=== PATIENT | male | born 1935 | race Caucasian/White ===

== ENCOUNTER 2016-07-04 08:59 | Inpatient (IN) | payer MEDICARE, OTHER ==
[~2016-07-04] VITALS: Ht 180.3 cm; Wt 68.4 kg
[~2016-07-04 08:59] MED LIST: NAPR275T83 PO
[2016-07-04 09:11] VITALS: Ht 180.3 cm; Wt 68.4 kg
[2016-07-04] MEDS ORDERED: GENTAMICIN 160 MG in SOD CHLORIDE 0.9% 100 ML IVPB ONE (09:30)
[2016-07-04] MEDS ORDERED: CEFTRIAXONE 1 GM/50 ML (PMX) 50 ML IVPB ONE (09:30)
--- NOTE | 2016-07-04 09:39 | RADRPT ---
PROCEDURE: XR Chest. CLINICAL INDICATION: 81-year-old male with suspected sepsis and respiratory failure. TECHNIQUE: Single frontal view of the chest was obtained COMPARISON: Chest x-ray 05/28/2015 03:35 p.m. FINDINGS: The soft tissues are normal. A spinal fusion procedure was performed in the mid and lower thoracic spine with pedicular screws attached posterior stabilization rods. There are vascular calcification s aortic arch. There is a poor inspiration with compressive atelectasis in the bases of the lungs. A lower cervical fusion procedure was performed over the interval. The heart is normal in size. N o pleural effusion is present. No acute bony fracture is noted. IMPRESSION: 1. Suboptimal inspiration with compressive atelectasis in the bases of the lungs. There is no evide nce of active cardiopulmonary disease. 2. The tracheostomy tube is well-positioned at T3. 3. Prior lower cervical fusion. 4. Prior posterior spinal fusion in the mid and lower thoracic spine. 5. Resolution of a left pleural effusion when compared to 05/28/2015. RPTAT:AAJJ Physician Zheng Date Time Electronically viewed and signed by Physician Zheng on 07/04/2016 09:39 BOOKER/
[2016-07-04] MEDS ORDERED: ACET325S GTB (09:40)
[2016-07-04] MEDS ORDERED: ALLO300T2 GTB (09:41)
[2016-07-04] MEDS ORDERED: AMLO5TAB4 GTB (09:41)
[2016-07-04] MEDS ORDERED: POLY15DR25 OP (09:42)
[2016-07-04] MEDS ORDERED: ASCO500S2 GTB (09:43)
[2016-07-04] MEDS ORDERED: LORA-441 GTB (09:44)
[2016-07-04] MEDS ORDERED: BENA40TA41 GTB (09:47)
[2016-07-04] MEDS ORDERED: SIN25100 GTB (09:49)
[2016-07-04] MEDS ORDERED: CLON-379 GTB (09:50)
[2016-07-04] MEDS ORDERED: DOCU-159 GTB (09:51)
[2016-07-04] MEDS ORDERED: IPRA3AMP INHALATION ×2 (09:53)
[2016-07-04] MEDS ORDERED: GABA300C16 GTB (09:54)
[2016-07-04] MEDS ORDERED: APR50 GTB (09:59)
[2016-07-04] MEDS ORDERED: LEVO500T72 PO (10:02)
[2016-07-04] MEDS ORDERED: MAGN400T27 GTB (10:04)
[2016-07-04] MEDS ORDERED: METO-407 GTB (10:06)
[2016-07-04] MEDS ORDERED: HYDR-906 GTB ×2 (10:10→10:13)
[2016-07-04] MEDS ORDERED: POLY17PO6 GTB (10:10)
[2016-07-04 10:11] LABS: ADD SCAN DIFF NO
[2016-07-04] MEDS ORDERED: LANS30CA GTB (10:13)
[2016-07-04] MEDS ORDERED: PROT946L GTB (10:14)
[2016-07-04] MEDS ORDERED: FINA5TAB4 GTB (10:15)
[2016-07-04 10:17] LABS: ADD UMIC YES; URINE BILIRUBIN (Dip) NEGATIVE (NEGATIVE); URINE BLOOD (Dip) 3+ (NEGATIVE); URINE COLOR LT. YELLOW (YELLOW); URINE GLUCOSE (Dip) NEGATIVE (NEGATIVE); URINE KETONES (Dip) NEGATIVE (NEGATIVE); URINE LEUKOCYTE ESTERASE (Dip) 3+ (NEGATIVE); URINE NITRITE (Dip) NEGATIVE (NEGATIVE); URINE TOTAL PROTEIN (Dip) 1+ (NEGATIVE); URINE UROBILINOGEN (Dip) 0.2 E.U./dL (0.1-1.0)
[2016-07-04] MEDS ORDERED: ONDA4TAB8 GTB (10:17)
[2016-07-04] MEDS ORDERED: MULTI GTB (10:17)
[2016-07-04 10:18] LABS: ABNORMAL IP MESSAGE 1; BASOPHILS % 0.3 % (0.0-2.0); EOSINOPHILS # 0.2 10^3/ul (0.0-0.5); EOSINOPHILS % 1.6 % (0.0-7.0); HEMATOCRIT 25.6 % (42.0-52.0); HEMOGLOBIN 8.2 g/dl (14.0-18.0); LYMPHOCYTES # 2.5 10^3/ul (0.8-2.9); LYMPHOCYTES % 20.6 % (15.0-51.0); MEAN CORPUSCULAR HEMOGLOBIN 30.7 pg (29.0-33.0); MEAN CORPUSCULAR VOLUME 95.9 fl (82.0-101.0); MEAN PLATELET VOLUME 9.2 fl (7.4-10.4); MONOCYTES % 16.9 % (0.0-11.0); NEUTROPHIL # 7.2 10^3/ul (1.6-7.5); NEUTROPHILS % 60.2 % (39.0-77.0); PLATELET COUNT 356 10^3/UL (140-415); RED BLOOD COUNT 2.67 10^6/ul (4.70-6.10); RED CELL DISTRIBUTION WIDTH 15.9 % (11.5-14.5)
[2016-07-04] MEDS ORDERED: LEVA1.25 INHALATION (10:19)
[2016-07-04] MEDS ORDERED: UDFER GTB (10:21)
[2016-07-04] MEDS ORDERED: SODIUM CHLORIDE 0.9% 1L BAG IV* STA (10:23)
[2016-07-04 10:27] LABS: ALBUMIN 2.9 g/dl (3.3-4.9)
[2016-07-04 10:28] LABS: INR 1.1; PROTIME 14.2 Sec (12.2-14.2); PT RATIO 1.1
[2016-07-04 10:29] LABS: PARTIAL THROMBOPLASTIN TIME 35.8 Sec (25.0-35.0)
[2016-07-04 10:30] LABS: ALBUMIN/GLOBULIN RATIO 0.76; BILIRUBIN,INDIRECT 0.4 mg/dl (0-1.1); BILIRUBIN,TOTAL 0.4 mg/dl (0.2-1.3); CREATININE 0.88 mg/dl (0.61-1.24); TOTAL PROTEIN 6.7 g/dl (6.1-8.1)
[2016-07-04 10:31] LABS: CALCIUM 8.7 mg/dl (8.4-10.2)
[2016-07-04 10:42] LABS: TROPONIN-I 0.014 ng/ml (0.00-0.12)
--- NOTE | 2016-07-04 10:52 | ERA ---
ER Documentation Chief Complaint Date/Time DATE: 07/04/16 TIME: 903 Chief Complaint BROUGHT IN VIA EMS FROM [facility] DUE TO LOW H&H AND GT OUT HPI 81-year-old male referred to the emergency department from his care facility for evaluation of generalized weakness. Routine lab tests from the patient's care facility indicated an elevated white blood cell count, low hemoglobin, urinary tract infection and the patient was referred here to the emergency department. Patient is nonverbal and not able to provide any history at this time. I have reviewed the seam stayer pre-hospital care. Pre-hospital vital signs were reviewed. Pre-hospital diagnostic tests were reviewed. ROS All systems reviewed and are negative except as per history of present illness. Medications Home Meds Reported Medications Ferrous Sulfate (Ferrous Sulfate) 300 Mg/5 Ml Liquid, 330 MG GTB BID 07/04/16 Levalbuterol Hcl* (Levalbuterol Hcl*) 1.25 Mg/0.5 Ml Vial.neb, 1.25 MG INHALATION Q6 Y for bronchospasm, VIAL 07/04/16 Multivitamins* (Theragran*) 1 Tab Tab, 1 TAB GTB DAILY, TAB 07/04/16 Ondansetron Hcl* (Zofran*) 4 Mg Tablet, 4 MG GTB Q6H Y for NAUSEA AND OR VOMITING, TAB 07/04/16 Finasteride* (Finasteride*) 5 Mg Tablet, 5 MG GTB DAILY, TAB 07/04/16 Protein Supplement (Promod) 946 Ml Liquid, 30 ML GTB DAILY 07/04/16 Lansoprazole* (Lansoprazole*) 30 Mg Capsule.dr, 30 MG GTB DAILY, CAP 07/04/16 Hydrocodone/Acetaminophen ([place] 5-325 Tablet) 1 Each Tablet, 1 EACH GTB prn, TAB everyday dhift for pain management prior to wound care 07/04/16 Hydrocodone/Acetaminophen ([place] 5-325 Tablet) 1 Each Tablet, 1 EACH GTB Q6 Y for PAIN, TAB 07/04/16 Polyethylene Glycol* (Miralax*) 17 Gm Powd.pack, 17 GM GTB DAILY Y for CONSTIPATION, #30 PACKET 07/04/16 Metoprolol Tartrate* (Lopressor*) 100 Mg Tablet, 100 MG GTB BID, #60 TAB hold if less than 110 or HR 60 07/04/16 Magnesium Oxide* (Mag-Oxide*) 400 Mg Tablet, 400 MG GTB QHS, TAB 07/04/16 Levofloxacin* (Levaquin*) 500 Mg Tablet, 500 MG PO DAILY, TAB started 06-30-16 stop 07-08-16 07/04/16 Hydralazine Hcl* (Hydralazine Hcl*) 50 Mg Tab, 50 MG GTB Q8 Y for ELEVATED BLOOD PRESSURE, #90 TAB HOLD FOR SBP LESS THAN 115mmHg 07/04/16 Gabapentin* (Gabapentin*) 300 Mg Capsule, 300 MG GTB BID, #60 CAP 07/04/16 Ipratropium-Albuterol (Ipratropium-Albuterol) 0.5-3 Mg/3 Ml Ampul.neb, 3 ML INHALATION Q2H Y for SHORTNESS OF BREATH, #30 VIAL 07/04/16 Ipratropium-Albuterol (Ipratropium-Albuterol) 0.5-3 Mg/3 Ml Ampul.neb, 3 ML INHALATION Q6 Y for BRONCHOSPASM, #30 VIAL 07/04/16 Docusate Sodium* (Docusate Sodium*) 100 Mg Capsule, 100 MG GTB BID, #60 CAP 07/04/16 Clonidine Hcl* (Clonidine Hcl*) 0.1 Mg Tab, 0.1 MG GTB Q6 Y for ELEVATED BLOOD PRESSURE, TAB 07/04/16 Carbidopa-Levodopa* (Sinemet*) 25-100 Mg Tab, 0.5 TAB GTB BID, TAB 07/04/16 Benazepril Hcl* (Benazepril Hcl*) 40 Mg Tablet, 40 MG GTB DAILY, #30 TAB HOLD IF LESS THAN 110 OR HR LESS THAN 60 07/04/16 Lorazepam* (Ativan*) 0.5 Mg Tablet, 0.5 MG GTB Q6 Y for ANXIETY, #30 TAB 07/04/16 Ascorbic Acid* (Ascorbic Acid*) 500 Mg/5 Ml Syrup, 500 MG GTB DAILY, #150 ML 07/04/16 Polyvinyl Alcohol (Tears Again) 15 Ml Drops, 1 DRP OP DAILY Y for DRY EYES, BOTTLE 07/04/16 Amlodipine Besylate* (Norvasc*) 5 Mg Tablet, 5 MG GTB BID, TAB 07/04/16 Allopurinol* (Allopurinol*) 300 Mg Tablet, 300 MG GTB DAILY, TAB 07/04/16 Acetaminophen* (Acetaminophen* Susp) 325 Mg/10.15 Ml Solution, 650 MG GTB Q6 Y for PAIN, ML 07/04/16 Discontinued Scripts Naproxen Sodium* (Naproxen*) 275 Mg Tablet, 500 MG PO BID for PAIN AND/OR INFLAMMATION, #30 TAB Prov:LUIS FINK MD 05/28/15 Allergies Allergies: Coded Allergies: No Known Allergy (Unverified , 07/04/16) PMhx/Soc History of Surgery: No Anesthesia Reaction: No Hx Neurological Disorder: No Hx Respiratory Disorders: No Hx Cardiac Disorders: Yes (HTN) Hx Psychiatric Problems: No Hx Miscellaneous Medical Probl: No Hx Alcohol Use: No Hx Substance Use: No Hx Tobacco Use: No Smoking Status: Never smoker FmHx Noncontributory for chief complaint Physical Exam Vitals Vital Signs Date Time Temp Pulse Resp B/P Pulse Ox O2 Delivery O2 Flow Rate FiO2 07/04/16 09:34 95 30 100 07/04/16 09:34 95 100 30 07/04/16 09:11 98.5 84 18 138/68 98 Physical Exam General: frail, bed bound, ill appearing HEENT: Mucous membranes dry, sclera nonicteric Neck: Tracheostomy noted. Ostomy patent. No inflammatory changes noted. No JVD. Cardiovascular: Regular rate and rhythm, no murmurs rubs or gallops. Lungs: Transmission of upper airway sounds. Abdomen: Soft with G-tube appreciated. Nontender to palpation. Bowel sounds noted. : Diaper in place and incontinent. Extremities: Atrophic but atraumatic with no edema, cyanosis or clubbing. Neurologic: Baseline organic brain syndrome noted. Gag reflex week. Motor strength diminished in all 4 extremities but otherwise nonfocal. Skin: Skin breakdown noted per nursing note. Result Diagram: 07/04/16 0940 07/04/16 0940 Results 24 hrs Laboratory Tests Test 07/04/16 09:40 07/04/16 09:41 07/04/16 09:42 Activated Partial Thromboplast Time 35.8Sec Alanine Aminotransferase (ALT/SGPT) 25IU/L Albumin 2.9g/dl Albumin/Globulin Ratio 0.76 Alkaline Phosphatase 152IU/L Anion Gap 14 Aspartate Amino Transf (AST/SGOT) 32IU/L Basophils # 0.010^3/ul Basophils % 0.3% Blood Urea Nitrogen 47mg/dl Calcium Level 8.7mg/dl Carbon Dioxide Level 38mmol/L Chloride Level 96mmol/L Creatinine 0.88mg/dl Direct Bilirubin 0.00mg/dl Eosinophils # 0.210^3/ul Eosinophils % 1.6% Globulin 3.80g/dl Glucose Level 97mg/dl Hematocrit 25.6% Hemoglobin 8.2g/dl INR International Normalized Ratio 1.10 Indirect Bilirubin 0.4mg/dl Lymphocytes # 2.510^3/ul Lymphocytes % 20.6% Mean Corpuscular Hemoglobin 30.7pg Mean Corpuscular Hemoglobin Concent 32.0g/dl Mean Corpuscular Volume 95.9fl Mean Platelet Volume 9.2fl Monocytes # 2.010^3/ul Monocytes % 16.9% Neutrophils # 7.210^3/ul Neutrophils % 60.2% Nucleated Red Blood Cells # 0.010^3/ul Nucleated Red Blood Cells % 0.0/100WBC Platelet Count 90255^3/UL Potassium Level 4.0mmol/L Prothrombin Time 14.2Sec Prothrombin Time Ratio 1.1 Red Blood Count 2.6710^6/ul Red Cell Distribution Width 15.9% Sodium Level 144mmol/L Total Bilirubin 0.4mg/dl Total Protein 6.7g/dl Troponin I Pending White Blood Count 12.010^3/ul Lactic Acid Level 0.9mmol/L Urine Bilirubin NEGATIVE Urine Clarity CLEAR Urine Color LT. YELLOW Urine Glucose NEGATIVE% Urine Hemoglobin 3+ Urine Ketones NEGATIVE Urine Leukocyte Esterase 3+ Urine Microscopic RBC 10-25/HPF Urine Microscopic WBC 5-10/HPF Urine Nitrite NEGATIVE Urine Specific [place] 1.010 Urine Total Protein 1+ Urine Urobilinogen 0.2 E.U./dL Urine Yeast MODERATE Urine pH 6.0 Current Medications Medications (Trade) Dose Ordered Sig/Tonny Route PRN Reason Start Time Stop Time Status Last Admin Dose Admin Ceftriaxone Sodium 50 ml @ 100 mls/hr ONCE ONCE IVPB 07/04/16 09:30 07/04/16 09:59 DC 07/04/16 09:56 Gentamicin Sulfate/Sodium Chloride (Gentamicin/NS) 104 ml @ 100 mls/hr ONCE ONCE IVPB 07/04/16 09:30 07/04/16 10:32 DC Sodium Chloride (NS) 2,540 ml BOLUS OVER 2 HOURS STAT IV* 07/04/16 10:23 07/04/16 10:24 DC 07/04/16 10:26 Procedures/MDM Patient was taken to a room, seen and evaluated. Comfort measures were initiated. Diagnostic tests were ordered and reviewed. 3 LEAD RHYTHM STRIP: Normal sinus rhythm without ectopy 12 lead EKG interpreted by myself: Rate/rhythm: Normal sinus rhythm Logan/intervals: Normal Ischemia: Nonspecific ST and T-wave changes with no ST elevation Impression: Nonspecific EKG RADIOLOGY: reviewed with the radiologist CONSULTATION: Patient's primary care doctor was notified for admission REEVALUATION: Patient has remained hemodynamically stable MEDICAL DECISION MAKIN-year-old male with multiple comorbid conditions presents to the emergency department for abnormal lab tests indicative of a urinary tract infection that is catheter associated complicated by a chronic respiratory failure that is tracheostomy and ventilator dependent as well as a low hemoglobin. At this time, patient is hemodynamically stable with no clinical evidence of sepsis based on his normal lactate and his normal vital signs. Patient has been started on antibiotics and fluids will be admitted to the hospital for ongoing care including consideration of transfusion, IV antibiotics for the UTI. Departure Diagnosis: Primary Impression: Urinary tract infection Additional Impression: Anemia Condition: ANU Malave Jul 04, 2016 10:52
[2016-07-04] MEDS ORDERED: SOD CHLORIDE 0.45% 1,000 ML IV SCH (22:30)
[2016-07-04] MEDS ORDERED: POLYETHYLENE GLYCOL 17 GM PACKET GTB PRN (22:30)
[2016-07-04] MEDS ORDERED: ALBUTEROL/IPRATROPIUM (NEB) 3 ML AMP INH PRN (22:30)
[2016-07-04] MEDS ORDERED: ONDANSETRON 4 MG TAB GTB PRN (22:30)
[2016-07-04] MEDS ORDERED: ACETAMINOPHEN 650MG/20.3ML CUP GTB PRN (22:30)
[2016-07-04] MEDS ORDERED: HYDROCODONE/APAP (5/325) TAB GTB PRN (22:30)
[2016-07-04] MEDS: CEFTRIAXONE 1 GM/50 ML (PMX) 50 ML IVPB SCH (23:26)
[2016-07-05] MEDS: LORAZEPAM 0.5 MG TAB GTB PRN (00:30)
[2016-07-05] MEDS: ALBUTEROL/IPRATROPIUM (NEB) 3 ML AMP NEB SCH ×4 (02:00→20:33)
[2016-07-05] MEDS: LANSOPRAZOLE 30 MG CAP GTB SCH ×2 (04:58→11:22)
--- NOTE | 2016-07-05 05:40 | HP ---
DATE OF ADMISSION: 07/04/2016 CHIEF COMPLAINT: History obtained from medical record and some questions were answered from the patient, although review of systems was rather limited as the patient has tracheostomy. 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 Santos Sorensen at [facility] and underwent a cervical laminectomy. The patient's postoperative course was complicated by acute respiratory failure. The patient could not be weaned off and therefore underwent tracheostomy and G-tube placement and was subsequently transferred to [facility]. The patient was successfully weaned off of vent; however, remained on trach collar. The patient also had developed postoperative fluid collection in the anterior part of the neck leading to a cystic mass. The patient was seen by Dr. Cho (ENT), who recommended conservative treatment. The patient was subsequently sent to [facility] subacute unit. The patient was noted to have progressive worsening anemia and hemoglobin was around 7. No reported fever or chills. The patient also was recently noted to have leukocytosis for which patient was empirically started on Levaquin and workup was ordered at [facility]; however, the patient was sent to [facility] ER for evaluation where his hemoglobin was noted to be 8.2. The patient's hemoglobin back in 05/2015 was 14.1. The patient also was noted to have BUN of 47, significantly up from BUN of 25 back in 05/2015. The patient's UA was positive for UTI as evident by positive leukocyte esterase, positive WBC. The patient's white count, however, was noted to be 12. He remains responsive, and breathing comfortably on trach collar. No reported vomiting, no reported bleeding from any site. No reported abdominal distention. No reported any acute skin rash. The patient was seen in the ER and was noted to have a white count of 12,000, hemoglobin 8.2, platelets 356. Chest x-ray done in the ER revealed atelectasis. The patient is being admitted for further evaluation and management. The patient is lethargic, but able to follow simple commands and has generalized weakness in all extremities.. The patient is being admitted for further evaluation and management. REVIEW OF SYSTEMS: Rather limited as the patient had tracheostomy. PAST MEDICAL HISTORY: As stated above. In addition, the patient also has history of parkinsonism and hypertension, and possible radiculopathy pain. The patient is being admitted for further evaluation and management. In addition, the patient also has history of gout. SOCIAL HISTORY: No smoking, no alcohol. ALLERGIES: NONE. FAMILY HISTORY: Noncontributory. MEDICATIONS: List from skilled subacute unit was reviewed. PHYSICAL EXAMINATION: GENERAL: Revealed the patient to be conscious, awake, alert. VITAL SIGNS: Temperature 98.5, pulse 84, respirations 18, blood pressure 138/68 , O2 saturation 98% on FIO2 of 30%. HEENT: Conjunctivae and lids normal. Extraocular movements intact. Nose and ears normal. Oropharynx clear. NECK: Tracheostomy in place. There is a soft cystic mass in the anterior neck , probably postoperative fluid collection from recent surgery. CHEST: Fairly clear. No use of accessory muscles. CARDIOVASCULAR: S1, S2 normal. No murmur, gallop, or rub. ABDOMEN: Soft, nondistended, nontender. G-tube in place. EXTREMITIES: No leg edema. Pedal pulses palpable. SKIN: Without acute rash. NEUROLOGIC: The patient is awake, alert, follows simple commands, and has generalized weakness in all extremities. LABORATORY: WBC 12, hemoglobin 8.2, platelet 356. Chemistry: Sodium 140, potassium 4, BUN 47, creatinine 0.8, glucose 97. Liver enzymes normal with AST of 32, ALT 25. Lactic acid normal. IMPRESSION: 1. Urinary tract infection. 2. Anemia. 3. Hypertension. 4. Cervical myelopathy status post cervical spine and upper thoracic spine surgery. 5. Parkinsonism. PLAN: The patient admitted on telemetry floor. The patient will be started on IV Rocephin and will also give IV fluid due to acute kidney injury. The patient was started on IV Rocephin. The patient also received a dose of gentamicin in the ER. Meanwhile, the patient will also be given breathing treatment. The patient will also be given Sinemet, iron, Proscar, gabapentin, Ativan, magnesium, multivitamin, Zofran, MiraLax powder. The patient will obtain iron panel, vitamin B12, folic acid level, and will be continued on breathing treatment. Meanwhile to complete the workup for anemia, we will also do stool OB and reticulocyte count. Further recommendations will depend on the patient's course. We will also do stool OB x3; if it turns out to be positive, he will require a GI workup. Will hold off on pharmacological DVT prophylaxis due to anemia. The patient remains clinically stable. Dictated By: CYNTHIA LEMUS/CHITRA Conf#: [id number] DID#: [id number] MTDD
[2016-07-05 08:12] LABS: ADD SCAN DIFF NO
[2016-07-05 08:39] LABS: BASOPHILS % 0.2 % (0.0-2.0); EOSINOPHILS # 0.1 10^3/ul (0.0-0.5); EOSINOPHILS % 0.7 % (0.0-7.0); HEMATOCRIT 24.8 % (42.0-52.0); LYMPHOCYTES # 1.6 10^3/ul (0.8-2.9); LYMPHOCYTES % 15.5 % (15.0-51.0); MEAN CORPUSCULAR HEMOGLOBIN 30.5 pg (29.0-33.0); MEAN CORPUSCULAR HGB CONC 32.3 g/dl (32.0-37.0); MEAN CORPUSCULAR VOLUME 94.7 fl (82.0-101.0); MEAN PLATELET VOLUME 9.4 fl (7.4-10.4); MONOCYTE # 1.2 10^3/ul (0.3-0.9); NEUTROPHIL # 7.6 10^3/ul (1.6-7.5); NEUTROPHILS % 72.1 % (39.0-77.0); PLATELET COUNT 336 10^3/UL (140-415); RED BLOOD COUNT 2.62 10^6/ul (4.70-6.10); RED CELL DISTRIBUTION WIDTH 15.6 % (11.5-14.5); RETICULOCYTE COUNT % 1.5 % (0.5-1.5); WHITE BLOOD COUNT 10.5 10^3/ul (4.8-10.8)
[2016-07-05 08:44] LABS: CHLORIDE 101 mmol/L (97-110); POTASSIUM 3.1 mmol/L (3.5-5.1); SODIUM 144 mmol/L (135-144)
[2016-07-05 08:47] LABS: ANION GAP 17 (8-16); BLOOD UREA NITROGEN 36 mg/dl (7-20); CARBON DIOXIDE 29 mmol/L (21-31); CREATININE 0.64 mg/dl (0.61-1.24)
[2016-07-05 08:48] LABS: CALCIUM 8.3 mg/dl (8.4-10.2); GLUCOSE 72 mg/dl (70-220)
[2016-07-05] MEDS ORDERED: ASCORBIC ACID 100 MG/ML 120ML BTL GTB SCH (09:00)
[2016-07-05] MEDS: CARBIDOPA/LEVODOPA (25/100) TAB GTB SCH ×3 (09:00→21:02)
[2016-07-05] MEDS ORDERED: FERROUS SULFATE 60 MG/ML 5ML CUP GTB SCH (09:00)
[2016-07-05] MEDS ORDERED: NON-FORMULARY/PATIENT OWN MED (Protein Supplement (Promod) 30 ML) GTB SCH (09:00)
[2016-07-05 09:19] LABS: IRON 24 ug/dl (35-150)
[2016-07-05 09:28] LABS: TOTAL IRON BINDING CAPACITY 223 ug/dl (241-421)
[2016-07-05 09:46] LABS: FOLATE > 20.0 ng/ml (2.8-20.0)
[2016-07-05] MEDS: ARTIFICIAL TEARS 15 ML OPH BOTH EYES SCH (11:17)
[2016-07-05] MEDS: BENAZEPRIL 40 MG TAB GTB SCH (11:19)
[2016-07-05] MEDS: GABAPENTIN 300 MG CAP GTB SCH ×2 (11:19→21:21)
[2016-07-05] MEDS: METOPROLOL 100 MG TAB GTB SCH ×2 (11:20→21:02)
[2016-07-05] MEDS: AMLODIPINE 5 MG TAB GTB SCH ×2 (11:20→21:03)
[2016-07-05] MEDS: ALLOPURINOL 300 MG TAB GTB SCH (11:21)
[2016-07-05] MEDS: MULTIVITAMINS THERAPEUTIC TAB GTB SCH (11:21)
[2016-07-05] MEDS: FINASTERIDE 5 MG TAB GTB SCH (11:21)
[2016-07-05] MEDS ORDERED: POTASSIUM CHLORIDE 20 MEQ POWDER FOR ORAL SOLN GTB ONE (11:30)
[2016-07-05] MEDS: D5W-0.45 NACL + KCL 20 MEQ 1,000 ML IV SCH (11:30)
--- NOTE | 2016-07-05 12:25 | PN ---
DATE: 07/04/2016 SUBJECTIVE: Follow up on an 81-year-old gentleman who was admitted with urinary tract infection. T he patient with a tracheostomy, vent-dependent with dysphagia with G-tube. The patient with left-si ded weakness and quadriparesis, status post cervical and thoracic spinal stenosis. The patient curr ently is awake, alert, follows immediate commands. Has copious secretions from the mouth and small amount of whitish secretions from the tracheostomy. No fever, nausea, vomiting reported per nursing staff. OBJECTIVE: VITAL SIGNS: Temperature is 99.0, pulse is 90, blood pressure 153/69, pulse is 90, respiratory rate 16, oxygen saturation is 100% on 40% FIO2. GENERAL: Well-developed, well-nourished gentleman currently on ventilator support via tracheostomy, awake, alert. HEENT: Head is atraumatic, normocephalic. Pupils equal, round, reactive to light and accommodation . Oral mucosa is pink and moist. NECK: Supple. The patient has right lateral anterior nontender, nonerythematous cystic mass. Trac heostomy at the base of the neck with a small amount of whitish secretions. No bleeding. LUNGS: Scattered rhonchi bilaterally, slightly diminished at the bases. There are no wheezes, rale s noted. HEART: Normal S1, S2. No murmurs, gallops, clicks, rubs noted. ABDOMEN: Protuberant, soft, nondistended, nontender. Bowel sounds present. The patient has a G-tu be with intact stoma. EXTREMITIES: There is no edema, clubbing, cyanosis. Pulses equal bilaterally 2+. SKIN: There is no obvious rash, petechiae noted. NEUROLOGIC: The patient is awake, alert, follows simple immediate commands. The patient with left- sided weakness. LABORATORY DATA: Today CBC: White blood cells 10.5, hemoglobin 8.0, hematocrit 24.8, platelets 336 . Chemistry: Sodium is 143, potassium 3.1, chloride 101, carbon dioxide 29, anion gap 17, BUN is 3 6, creatinine 0.64, glucose 72, calcium 8.3. ASSESSMENT AND PLAN: 1. Urinary tract infection per UA. Continue Rocephin. Follow up on urine cultures. 2. Systemic inflammatory response syndrome secondary to urinary tract infection. 3. Anemia of possible gastrointestinal bleed. Stool for occult blood is positive. Dr. Amezquita will be following the patient in gastroenterology consultation. Continue to monitor hemoglobin and diana tocrit. 4 Chronic respiratory failure. Continue patient on ventilatory support. Continue pulmonary toilet and bronchodilators. Dr. Rivera will be following the patient from pulmonology standpoint. 5. Dysphagia with G-tube. 6. Hypertension. Continue patient on Lotensin, Norvasc and metoprolol. 7. Parkinson's disease. Continue Sinemet. 8. Cervical myelopathy, status post cervical spine and upper thoracic spine surgery by Dr. Sorensen. 9. Neck cystic mass, status post conservative treatment. 10. 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 Continue to assist pat ient with activities of daily living 11. Hypokalemia. We will replace potassium. Monitor electrolytes. PLAN: We will continue to monitor hemoglobin and hematocrit. Transfuse p.r.n. We will continue se quential compression devices for deep venous thrombosis prophylaxis and Prevacid for peptic ulcer di sease prophylaxis. Further recommendations based on clinical course. Plan of care discussed with Dr. Gonzalez. Dictated By: MARCO DOE WOODWORKING MACHINE SETTER for CYNTHIA GONZALEZ MD SR/NTS Conf#: [id number] DID#: [id number]
[2016-07-05] MEDS: ASCORBIC ACID 500 MG TAB GTB SCH (21:00)
[2016-07-05] MEDS: MAGNESIUM OXIDE 400 MG TAB GTB SCH (21:21)
[2016-07-05] MEDS: CEFTRIAXONE 1 GM/50 ML (PMX) 50 ML IVPB SCH (21:44)
--- NOTE | 2016-07-05 22:09 | CONS ---
DATE OF ADMISSION: 07/04/2016 DATE OF CONSULTATION: TYPE OF CONSULTATION: Gastroenterology. Dear Dr. Gonzalez: Thank you for asking me to see Mr. Box in GI consultation. HISTORY OF PRESENT ILLNESS: The patient, as you know, is an 81-year-old male who is admitt ed to the hospital with possible urinary tract infection from the group home. GI consultation is requested because of severe anemia, around hemoglobin 7, and latest hemoglobin is 8. He is known to have had a laminectomy, which is a cervical laminectomy, in [facility] for thoracic and ce rvical spinal stenosis. Subsequently, however, continued to stay in respiratory failure. He underw ent tracheostomy and PEG placement. Now, patient is unable to give me any history. Most of the his tory is obtained from the nursing staff and the patient's chart. No history of vomiting blood or passing blood from the rectum. He does have a PEG tube in place. REVIEW OF SYSTEM: Positive for respiratory failure, parkinsonism, hypertension, radiculopathy. MEDICATIONS PRIOR TO THIS ADMISSION, IN THE [facility]: Include: 1. Levaquin. 2. Ipratropium. 3. Levalbuterol. 4. Ferrous sulfate. 5. Amlodipine. 6. Benazepril. 7. Clonidine. 8. Hydralazine. 9. Metoprolol. 10. Sinemet. 11. Gabapentin. 12. Hydrocodone. 13. Lorazepam. 14. Lansoprazole. SOCIAL HISTORY: No history of alcoholism. PHYSICAL EXAMINATION: GENERAL: The patient is an 81-year-old male who at this time is unresponsive, although he opens his eyes. VITAL SIGNS: Temperature 98.8, pulse is 81, blood pressure 135/67. CARDIOVASCULAR: Normal heart sounds. RESPIRATORY: Normal breath sounds. ABDOMEN: Showed a G-tube in place. No distention, no palpable masses. LABORATORY WORKUP: The hematological workup shows hemoglobin is 8.0, WBC count is 10,500. Prothrombin time 14.2. Potassium is 3.1, BUN is 36, creatinine 0.6. Iron is 24. Bilirubin 0.4, AL T is 25. The imaging studies shows a chest x-ray indicating a tracheostomy in place, cervical fusion, spinal fusion, resolution of left pleural effusion. CLINICAL IMPRESSION: 1. From the gastrointestinal standpoint, the patient has severe anemia. Rule out gastrointestinal bleeding, particularly G-tube site ulcer can be a causative factor. Lower gastrointestinal causes o f anemia can also be considered. 2. History of respiratory failure. 3. Status post cervical and thoracic laminectomy. 4. Hypertension. PLAN: At this time, recommend upper endoscopy. Continue Protonix. I will be happy to follow this patient with you. Once again, doctor, thank you for this consultation. Dictated By: LAILA HOGAN/CHITRA Conf#: [id number] DID#: [id number] CC: LAILA VIDAL MD; CYNTHIA GONZALEZ MD;*EndCC*
[2016-07-06] VITALS (36 sets, daily range): BP systolic 119–159; BP diastolic 38–110; PULSE 59–91; RESP 12–25; TEMP 98.6
[2016-07-06] MEDS: ALBUTEROL/IPRATROPIUM (NEB) 3 ML AMP NEB SCH (02:54)
[2016-07-06] MEDS: D5W-0.45 NACL + KCL 20 MEQ 1,000 ML IV SCH ×2 (03:57→16:06)
[2016-07-06] MEDS ORDERED: IPRATROPIUM (HFA) 12.9 GM INHALER INH PRN (05:30)
[2016-07-06] MEDS ORDERED: ALBUTEROL HFA 8 GM INHALER INH PRN (05:30)
[2016-07-06 05:33] LABS: ADD SCAN DIFF NO
[2016-07-06 05:36] LABS: BASOPHILS % 0.2 % (0.0-2.0); EOSINOPHILS # 0.1 10^3/ul (0.0-0.5); EOSINOPHILS % 0.9 % (0.0-7.0); HEMATOCRIT 23.2 % (42.0-52.0); HEMOGLOBIN 7.4 g/dl (14.0-18.0); LYMPHOCYTES # 1.3 10^3/ul (0.8-2.9); LYMPHOCYTES % 14.9 % (15.0-51.0); MEAN CORPUSCULAR HEMOGLOBIN 30.7 pg (29.0-33.0); MEAN CORPUSCULAR HGB CONC 31.9 g/dl (32.0-37.0); MEAN CORPUSCULAR VOLUME 96.3 fl (82.0-101.0); MEAN PLATELET VOLUME 9.2 fl (7.4-10.4); MONOCYTE # 1.2 10^3/ul (0.3-0.9); MONOCYTES % 13.6 % (0.0-11.0); NEUTROPHILS % 70.1 % (39.0-77.0); PLATELET COUNT 346 10^3/UL (140-415); RED BLOOD COUNT 2.41 10^6/ul (4.70-6.10); RED CELL DISTRIBUTION WIDTH 15.6 % (11.5-14.5); WHITE BLOOD COUNT 8.6 10^3/ul (4.8-10.8)
[2016-07-06 06:16] LABS: POTASSIUM 3.1 mmol/L (3.5-5.1)
[2016-07-06 06:18] LABS: CREATININE 0.58 mg/dl (0.61-1.24)
[2016-07-06 06:19] LABS: CALCIUM 8.3 mg/dl (8.4-10.2)
--- NOTE | 2016-07-06 07:47 | CONS ---
Date/Time of Note Date/Time of Note DATE: 07/06/16 TIME: 07:42 Assessment/Plan Assessment/Plan Additional Assessment/Plan Chest x-ray was reviewed from 6 of the spine which is essentially clear. Ventilator settings; AC of 14, tidal volume 500, PEEP of 5, 30% FiO2. Assessment recommendations; 1. Patient with history of chronic respiratory failure which is ventilator dependent. 2. Dementia with paraplegia. 3. Anemia. 4. Multiple other comorbidities as outlined above which all appear fairly stable. 5. Possible UTI. Transfused 1 unit of packed RBC. Continue current supportive care. Consultation Date/Type/Reason Admit Date/Time Jul 04, 2016 at 10:48 Date of Consultation: Jul 06, 2016 Type of Consultation: Pulmonary/critical care Reason for Consultation Pulmonary consultation obtained for patient with chronic respiratory failure, admitted for anemia and UTI. Next History of present illness; patient is a 81-year-old male who was admitted on the seventh of this month transferred over from rehab center for anemia. Patient was diagnosed with UTI as well started on antibiotics. Patient remains ventilator dependent owing to anoxic brain injury as well as history of C-spine surgery. He is awake but unable to give any history whatsoever and this has been his underlying mental status. Past medical history; 1. History of chronic respiratory failure status post tracheostomy. 2. Status post G-tube placement. 3. History of thoracic and C-spine surgery. 4. Paraplegia. 5. Dementia. 6. Gout. 7. Anemia 8. COPD 9. Hypertension 10. Neuropathy 11. arthritis Medications; were reviewed. Allergies; are none. Social history; apparently there is a prior history of smoking. Family history; not available. Occupational history; not available. Review of systems; very limited review of systems could be obtained. Patient denies any shortness of breath by nodding no. General examination; elderly male, on ventilator via tracheostomy currently in no distress awake. Social History Smoking Status: Never smoker Exam/Review of Systems Vital Signs Vitals Vital Signs Date Time Temp Pulse Resp B/P Pulse Ox O2 Delivery O2 Flow Rate FiO2 07/06/16 06:00 74 18 128/55 100 Mechanical Ventilator 07/06/16 05:05 30 07/06/16 04:00 99.0 Intake and Output 07/05/16 07/05/16 07/06/16 15:00 23:00 07:00 Intake Total 280 ml Output Total 100 ml Balance 180 ml Exam HEENT examination; supple neck, no JVD. No lymphadenopathy. Midline trachea. There is a cystic mass involving the right lobe of the thyroid. It was a small bilaterally. Patient has only a few remaining teeth. Tracheostomy in place with clean insertion site. Chest examination; diminished but clear breath sounds bilaterally. S1-S2 audible, no murmurs. Regular rhythm. Abdomen examination; soft, G-tube in place. No organomegaly. Bowel sounds audible. Extremity examination; no peripheral edema. LEATHER BELT SHAPER examination; patient is awake follows very simple commands by head nodding able to move upper extremities spontaneously. Results Result Diagram: 07/06/16 0505 07/06/16 0505 Results 24 hrs Laboratory Tests Test 07/05/16 08:07 07/06/16 05:05 Absolute Reticulocyte Count 0.040 Anion Gap 17 H 15 Basophils # 0.0 0.0 Basophils % 0.2 0.2 Blood Urea Nitrogen 36 #H 30 H Calcium Level 8.3 L 8.3 L Carbon Dioxide Level 29 31 Chloride Level 101 103 Creatinine 0.64 0.58 L Eosinophils # 0.1 0.1 Eosinophils % 0.7 0.9 Ferritin 306.0 H Folate > 20.0 H Glucose Level 72 117 # Hematocrit 24.8 L 23.2 L Hemoglobin 8.0 L 7.4 L Iron Level 24 L Lymphocytes # 1.6 1.3 Lymphocytes % 15.5 14.9 L Mean Corpuscular Hemoglobin 30.5 30.7 Mean Corpuscular Hemoglobin Concent 32.3 31.9 L Mean Corpuscular Volume 94.7 96.3 Mean Platelet Volume 9.4 9.2 Monocytes # 1.2 H 1.2 H Monocytes % 11.0 13.6 H Neutrophils # 7.6 H 6.0 Neutrophils % 72.1 70.1 Nucleated Red Blood Cells # 0.0 0.0 Nucleated Red Blood Cells % 0.0 0.0 Percent Iron Saturation 11 L Percent Reticulocyte Count 1.5 Platelet Count 336 346 Potassium Level 3.1 L 3.1 L Red Blood Count 2.62 L 2.41 L Red Cell Distribution Width 15.6 H 15.6 H Sodium Level 144 146 H Thyroid Stimulating Hormone (TSH) 4.650 Total Iron Binding Capacity 223 L Vitamin B12 Level > 1000 H White Blood Count 10.5 8.6 Magnesium Level 1.8 Medications Medications Current Medications Acetaminophen (Tylenol Liquid) 650 mg Q6 PRN GTB PAIN; Start 07/04/16 at 22:30 Allopurinol (Zyloprim) 300 mg DAILY GTB Last administered on 07/05/16 11:21; Admin Dose 300 MG; Start 07/05/16 at 09:00 Amlodipine Besylate (Norvasc) 5 mg BID GTB Last administered on 07/05/16 21:03 ; Admin Dose 5 MG; Start 07/05/16 at 09:00 Benazepril HCl (Lotensin) 40 mg DAILY GTB Last administered on 07/05/16 11:19; Admin Dose 40 MG; Start 07/05/16 at 09:00 Carbidopa/Levodopa (Sinemet (25/ 100)) 0.5 tab BID GTB Last administered on 07/05 21:02; Admin Dose 0.5 TAB; Start 07/05/16 at 09:00 Clonidine (Catapres) 0.1 mg Q6 PRN GTB ELEVATED BLOOD PRESSURE>150; Start at 22:30 Finasteride (Proscar) 5 mg DAILY GTB Last administered on 07/05/16 11:21; Admin Dose 5 MG; Start 07/05/16 at 09:00 Gabapentin (Neurontin) 300 mg BID GTB Last administered on 07/05/16 21:21; Admin Dose 300 MG; Start 07/05/16 at 09:00 Acetaminophen/ Hydrocodone Bitart ([place] (5/325)) 1 tab Q6 PRN GTB PAIN; Start 07/04/16 at 22:30 Lansoprazole (Prevacid) 30 mg DAILY@06 GTB Last administered on 07/05/16 11:22 ; Admin Dose 30 MG; Start 07/05/16 at 06:00 Lorazepam (Ativan) 0.5 mg Q6 PRN GTB ANXIETY Last administered on 07/05/16 00: 30; Admin Dose 0.5 MG; Start 07/04/16 at 22:30 Magnesium Oxide (Mag-Ox 400) 400 mg QHS GTB Last administered on 07/05/16 21:21 ; Admin Dose 400 MG; Start 07/05/16 at 21:00 Metoprolol Tartrate (Lopressor) 100 mg BID GTB Last administered on 07/05/16 21 :02; Admin Dose 100 MG; Start 07/05/16 at 09:00 Multivitamins Therapeutic (Theragran) 1 tab DAILY GTB Last administered on 11:21; Admin Dose 1 TAB; Start 07/05/16 at 09:00 Ondansetron HCl (Zofran Tab) 4 mg Q6H PRN GTB NAUSEA AND/OR VOMITING; Start 07/04/16 at 22:30 Polyethylene Glycol (Miralax) 17 gm DAILY PRN GTB CONSTIPATION; Start 07/04/16 at 22:30 Eye Lubricant 1 drop 1 drop DAILY BOTH EYES Last administered on 07/05/16 11:17 ; Admin Dose 1 DROP; Start 07/05/16 at 09:00 Ceftriaxone Sodium (Rocephin) 50 ml @ 100 mls/hr Q24H IVPB Last administered on 07/05/16 21:44; Admin Dose 100 MLS/HR; Start 07/04/16 at 22:30 Ascorbic Acid 500 mg 500 mg DAILY GTB Last administered on 07/05/16 21:00; Admin Dose 500 MG; Start 07/05/16 at 09:00 Potassium Chloride/Dextrose/ Sod Cl (D5-1/2ns + KCl 20 Meq) 1,000 ml @ 70 mls/ hr [id number] IV Last administered on 07/05/16 11:30; Admin Dose 70 MLS/HR; Start 07/05/16 at 11:30 KARLI RILEY Jul 06, 2016 07:47
[2016-07-06] MEDS: BENAZEPRIL 40 MG TAB GTB SCH (09:00)
[2016-07-06] MEDS: LORAZEPAM 0.5 MG TAB GTB PRN ×2 (09:57→20:39)
[2016-07-06] MEDS: MULTIVITAMINS THERAPEUTIC TAB GTB SCH (09:57)
[2016-07-06] MEDS: ALLOPURINOL 300 MG TAB GTB SCH (09:57)
[2016-07-06] MEDS: ASCORBIC ACID 500 MG TAB GTB SCH (09:57)
[2016-07-06] MEDS: GABAPENTIN 300 MG CAP GTB SCH ×2 (09:57→20:39)
[2016-07-06] MEDS: CARBIDOPA/LEVODOPA (25/100) TAB GTB SCH ×2 (09:58→20:39)
[2016-07-06] MEDS: AMLODIPINE 5 MG TAB GTB SCH ×2 (09:58→20:39)
[2016-07-06] MEDS: METOPROLOL 100 MG TAB GTB SCH ×2 (09:58→20:39)
[2016-07-06] MEDS: FINASTERIDE 5 MG TAB GTB SCH (09:58)
[2016-07-06] MEDS: ARTIFICIAL TEARS 15 ML OPH BOTH EYES SCH (09:59)
[2016-07-06] MEDS ORDERED: PROPOFOL 20 ML ONE (12:20)
--- NOTE | 2016-07-06 14:35 | PN ---
Date/Time of Note Date/Time of Note DATE: 07/06/16 TIME: 14:29 Assessment/Plan VTE Prophylaxis VTE Prophylaxis Intervention: SCD's Lines/Catheters IV [facility]from [facility] [place] [facility] Urinary Cath still in place: Yes Reason Cath still needed: urinary retention Assessment/Plan Chief Complaint/Hosp Course ASSESSMENT AND PLAN: 1. Urinary tract infection per UA. Start the Diflucan. 2. Systemic inflammatory response syndrome secondary to urinary tract infection. Staphylococcus bacteremia. Dr. Shine will be following an infection disease consultation. 3. Anemia of possible gastrointestinal bleed. Stool for occult blood is positive. Dr. Amezquita is following the patient in gastroenterology consultation. Continue to monitor hemoglobin and hematocrit. Status post EGD today with notion of gastritis, continue Protonix. 4 Chronic respiratory failure. Continue patient on ventilatory support. Continue pulmonary toilet and bronchodilators. Dr. Rivera will be following the patient from pulmonology standpoint. 5. Dysphagia with G-tube. 6. Hypertension. Continue patient on Lotensin, Norvasc and metoprolol. 7. Parkinson's disease. Continue Sinemet. 8. Cervical myelopathy, status post cervical spine and upper thoracic spine surgery by Dr. Sorensen. 9. Neck cystic mass, status post conservative treatment. Dr. Sorensen is asked to see patient in neurosurgery consultation. 10. 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 Continue to assist patient with activities of daily living. Continue sequential compression devices for deep venous thrombosis prophylaxis and Prevacid for peptic ulcer disease prophylaxis. Further recommendations based on clinical course. Plan of care discussed with Dr. Manriquez. Problems: Subjective 24 Hr Interval Summary Free Text/Dictation Patient is orally intubated, status post EGD by Dr. Amezquita with notion of gastritis. Exam/Review of Systems Vital Signs Vitals Vital Signs Date Time Temp Pulse Resp B/P Pulse Ox O2 Delivery O2 Flow Rate FiO2 07/06/16 13:08 77 14 126/54 94 Mechanical Ventilator 07/06/16 12:15 98.6 07/06/16 11:30 30 Intake and Output 07/05/16 07/05/16 07/06/16 15:00 23:00 07:00 Intake Total 280 ml Output Total 100 ml Balance 180 ml Exam GENERAL: Well-developed, well-nourished gentleman currently on ventilator support via tracheostomy, awake, alert. HEENT: Head is atraumatic, normocephalic. TASHIA. NECK: Supple. The patient has right lateral anterior nontender, nonerythematous cystic mass. Tracheostomy at the base of the neck with a small amount of whitish secretions. LUNGS: Scattered rhonchi bilaterally, slightly diminished at the bases. There are no wheezes, rales noted. HEART: Normal S1, S2. No murmurs, gallops, clicks, rubs noted. ABDOMEN: Protuberant, soft, nondistended, nontender. Bowel sounds present. The patient has a G-tube with intact stoma. EXTREMITIES: There is no edema, clubbing, cyanosis. Pulses equal bilaterally 2 +. SKIN: There is no obvious rash, petechiae noted. NEUROLOGIC: The patient is awake, alert, follows simple immediate commands. The patient has left-sided weakness. Results Result Diagram: 07/06/16 0505 07/06/16 0505 Results 24 hrs Laboratory Tests Test 07/06/16 05:05 Anion Gap 15 Basophils # 0.0 Basophils % 0.2 Blood Urea Nitrogen 30 H Calcium Level 8.3 L Carbon Dioxide Level 31 Chloride Level 103 Creatinine 0.58 L Eosinophils # 0.1 Eosinophils % 0.9 Glucose Level 117 # Hematocrit 23.2 L Hemoglobin 7.4 L Lymphocytes # 1.3 Lymphocytes % 14.9 L Magnesium Level 1.8 Mean Corpuscular Hemoglobin 30.7 Mean Corpuscular Hemoglobin Concent 31.9 L Mean Corpuscular Volume 96.3 Mean Platelet Volume 9.2 Monocytes # 1.2 H Monocytes % 13.6 H Neutrophils # 6.0 Neutrophils % 70.1 Nucleated Red Blood Cells # 0.0 Nucleated Red Blood Cells % 0.0 Platelet Count 346 Potassium Level 3.1 L Red Blood Count 2.41 L Red Cell Distribution Width 15.6 H Sodium Level 146 H White Blood Count 8.6 Medications Medications Current Medications Acetaminophen (Tylenol Liquid) 650 mg Q6 PRN GTB PAIN; Start 07/04/16 at 22:30 Allopurinol (Zyloprim) 300 mg DAILY GTB Last administered on 07/06/16 09:57; Admin Dose 300 MG; Start 07/05/16 at 09:00 Amlodipine Besylate (Norvasc) 5 mg BID GTB Last administered on 07/06/16 09:58 ; Admin Dose 5 MG; Start 07/05/16 at 09:00 Benazepril HCl (Lotensin) 40 mg DAILY GTB Last administered on 07/06/16 09:00; Admin Dose 40 MG; Start 07/05/16 at 09:00 Carbidopa/Levodopa (Sinemet (25/ 100)) 0.5 tab BID GTB Last administered on 07/06 09:58; Admin Dose 0.5 TAB; Start 07/05/16 at 09:00 Clonidine (Catapres) 0.1 mg Q6 PRN GTB ELEVATED BLOOD PRESSURE>150; Start at 22:30 Finasteride (Proscar) 5 mg DAILY GTB Last administered on 07/06/16 09:58; Admin Dose 5 MG; Start 07/05/16 at 09:00 Gabapentin (Neurontin) 300 mg BID GTB Last administered on 07/06/16 09:57; Admin Dose 300 MG; Start 07/05/16 at 09:00 Acetaminophen/ Hydrocodone Bitart ([place] (5/325)) 1 tab Q6 PRN GTB PAIN; Start 07/04/16 at 22:30 Lansoprazole (Prevacid) 30 mg DAILY@06 GTB Last administered on 07/05/16 11:22 ; Admin Dose 30 MG; Start 07/05/16 at 06:00 Lorazepam (Ativan) 0.5 mg Q6 PRN GTB ANXIETY Last administered on 07/06/16 09: 57; Admin Dose 0.5 MG; Start 07/04/16 at 22:30 Magnesium Oxide (Mag-Ox 400) 400 mg QHS GTB Last administered on 07/05/16 21:21 ; Admin Dose 400 MG; Start 07/05/16 at 21:00 Metoprolol Tartrate (Lopressor) 100 mg BID GTB Last administered on 07/06/16 09 :58; Admin Dose 100 MG; Start 07/05/16 at 09:00 Multivitamins Therapeutic (Theragran) 1 tab DAILY GTB Last administered on 09:57; Admin Dose 1 TAB; Start 07/05/16 at 09:00 Ondansetron HCl (Zofran Tab) 4 mg Q6H PRN GTB NAUSEA AND/OR VOMITING; Start 07/04/16 at 22:30 Polyethylene Glycol (Miralax) 17 gm DAILY PRN GTB CONSTIPATION; Start 07/04/16 at 22:30 Eye Lubricant 1 drop 1 drop DAILY BOTH EYES Last administered on 07/06/16 09:59 ; Admin Dose 1 DROP; Start 07/05/16 at 09:00 Ceftriaxone Sodium (Rocephin) 50 ml @ 100 mls/hr Q24H IVPB Last administered on 07/05/16 21:44; Admin Dose 100 MLS/HR; Start 07/04/16 at 22:30 Ascorbic Acid 500 mg 500 mg DAILY GTB Last administered on 07/06/16 09:57; Admin Dose 500 MG; Start 07/05/16 at 09:00 Potassium Chloride/Dextrose/ Sod Cl (D5-1/2ns + KCl 20 Meq) 1,000 ml @ 70 mls/ hr [id number] IV Last administered on 07/05/16 11:30; Admin Dose 70 MLS/HR; Start 07/05/16 at 11:30 MARCO DOE Jul 06, 2016 14:35
--- NOTE | 2016-07-06 16:29 | CONS ---
DATE OF ADMISSION: 07/04/2016 DATE OF CONSULTATION: 07/06/2016 INFECTIOUS DISEASE CONSULTATION REASON FOR CONSULTATION: Antibiotic management. HISTORY OF PRESENT ILLNESS: Tee Box is an 81-year-old male with numerous problems w brandi comes in with possible sepsis and is being seen for antibiotic management. His past problems inc lude history of cervical and thoracic spinal stenosis leading quadriparesis seen by Dr. Santos sorensen [facility] and underwent cervical laminectomy. The patient's postoperative course was co mplicated by respiratory failure, and he underwent subsequently tracheostomy and G-tube placement an d then was transferred to [facility]. He has a trach collar, weaned off the vent. He deve loped postoperative fluid collection in the anterior part of the neck, leading to a cystic mass. He was sent to a subacute unit. He developed worsening anemia with hemoglobin of 7. He had no fever or chills but did have leukocytosis and was started on Levaquin. UA was positive for UTI as evidenc ed by positive leukocyte esterase and WBCs. Chest x-ray showed atelectasis. He was admitted for fu rther workup on 07/04/2016. On admission, his white count was 12.0, H and H of 8.2 and 25.6, platel et count of 356. Today his white count is 8.6. BUN and creatinine are 30/0.58. Urine is 3+ leukoc yte esterase, 5 to 10 white cells per high powered field, moderate yeast, 3+ hemoglobin. His urine is growing out Dinorah glabrata, and his blood culture has staph species, gram-positive cocci in trina rs seen on Gram stain of the broth, that is 1/2. The patient was begun on ceftriaxone. Chest x-ray : Suboptimal inspiration with atelectasis, prior lower cervical fusion, tracheostomy, spinal fusion , resolution of left pleural effusion. The patient was begun on fluconazole for urinary tract infec tion, systemic inflammatory response syndrome secondary to urinary tract infection, possible Staph b acteremia unlikely. We can repeat the blood cultures. PAST MEDICAL HISTORY: Operations as outlined. FAMILY HISTORY: Noncontributory. SOCIAL HISTORY: He does not smoke, drink, or abuse drugs. ALLERGIES: NONE TO PENICILLIN, SULFA, OR FOODS. REVIEW OF SYSTEMS: Positive also for Parkinson disease. PHYSICAL EXAMINATION: GENERAL: The patient is an elderly appearing male who is awake, responsive, in no acute distress. VITAL SIGNS: Stable. He is afebrile. He has tracheostomy. He has a G-tube. SKIN: Without generalized rash. HEENT: Within normal limits. NECK: Supple. LYMPH NODES: None palpable. Tracheostomy at the base of the neck with some whitish secretions. CHEST: Scattered rhonchi bilaterally with decreased breath sounds at the bases. HEART: Without murmur or gallop. ABDOMEN: Soft, nontender. G-tube in place without discharge. EXTREMITIES: Without cyanosis, clubbing, or edema. RECTAL AND GENITAL: Deferred. NEUROLOGICAL: The patient has marked neurological impairment, generalized weakness, left greater th an right. IMPRESSION AND PLAN: The patient was also seen by Dr. Amezquita. He is going to out anemia significan t at 8, and he is going to rule out gastrointestinal bleed. He was seen in pulmonary consultation b shakeel Mo ____. He notes that the patient has dementia with paraplegia and multiple other comorbidities . The patient is on ceftriaxone. Fluconazole will be added. This should be adequate for glabrata. I will dictate my findings to Dr. Manriquez. Dictated By: NEMO GOMEZ MD, JD/CHITRA Conf#: [id number] DID#: [id number]
[2016-07-06] MEDS: IPRATROPIUM (HFA) 12.9 GM INHALER INH SCH ×2 (16:52→19:36)
[2016-07-06] MEDS: ALBUTEROL HFA 8 GM INHALER INH SCH ×2 (16:53→19:36)
[2016-07-06] MEDS ORDERED: FLUCONAZOLE 200 MG TAB GTB SCH (17:00)
[2016-07-06] MEDS: VORICONAZOLE 200 MG TAB GTB SCH (20:38)
[2016-07-06] MEDS: MAGNESIUM OXIDE 400 MG TAB GTB SCH (20:40)
[2016-07-06] MEDS: CEFTRIAXONE 1 GM/50 ML (PMX) 50 ML IVPB SCH (22:28)
[2016-07-07] VITALS (27 sets, daily range): BP systolic 140–185; BP diastolic 61–76; PULSE 56–80; RESP 12–20
[2016-07-07] MEDS: D5W-0.45 NACL + KCL 20 MEQ 1,000 ML IV SCH ×2 (00:41→20:20)
[2016-07-07] MEDS: IPRATROPIUM (HFA) 12.9 GM INHALER INH SCH ×5 (01:25→20:13)
[2016-07-07] MEDS: ALBUTEROL HFA 8 GM INHALER INH SCH ×4 (01:25→20:13)
[2016-07-07] MEDS: LANSOPRAZOLE 30 MG CAP GTB SCH (06:35)
[2016-07-07] MEDS: GABAPENTIN 300 MG CAP GTB SCH ×2 (08:46→20:21)
[2016-07-07] MEDS: CARBIDOPA/LEVODOPA (25/100) TAB GTB SCH ×2 (08:46→20:21)
[2016-07-07] MEDS: ASCORBIC ACID 500 MG TAB GTB SCH (08:47)
[2016-07-07] MEDS: VORICONAZOLE 200 MG TAB GTB SCH ×2 (08:47→20:21)
[2016-07-07] MEDS: FINASTERIDE 5 MG TAB GTB SCH (08:47)
[2016-07-07] MEDS: AMLODIPINE 5 MG TAB GTB SCH ×2 (08:48→22:14)
[2016-07-07] MEDS: BENAZEPRIL 40 MG TAB GTB SCH (08:48)
[2016-07-07] MEDS: METOPROLOL 100 MG TAB GTB SCH ×2 (08:49→21:00)
[2016-07-07] MEDS: ALLOPURINOL 300 MG TAB GTB SCH (08:49)
[2016-07-07] MEDS: ARTIFICIAL TEARS 15 ML OPH BOTH EYES SCH ×2 (09:00→12:49)
[2016-07-07] MEDS: MULTIVITAMINS THERAPEUTIC TAB GTB SCH (11:09)
--- NOTE | 2016-07-07 11:48 | CONS ---
Date/Time of Note Date/Time of Note DATE: 07/07/16 TIME: 11:45 Assessment/Plan Assessment/Plan Additional Assessment/Plan Ventilator settings; C of 12, tidal volume 500, PEEP of 5, 40% FiO2. Assessment recommendations; 1. Patient admitted for UTI with interval improvement. 2. Chronic respiratory failure, ventilator dependent. 3. Status post C-spine surgery resulting in paraplegia. 4. History of dementia. 5. History of gout. 6. Anemia. 7. Neuropathy. 8. COPD. Continue current treatment. Monitor H&H. Wean down to cool aerosol via tracheostomy as tolerated. Consultation Date/Type/Reason Admit Date/Time Jul 04, 2016 at 10:48 Initial Consult Date 07/06/16 Type of Consultation: Pulmonary/critical care 24 HR Interval Summary Free Text/Dictation Patient's condition remained stable. Had been transferred out of ICU to telemetry unit. Patient is awake but does not follow any commands. Able to move both upper extremities spontaneously. Next General exam; elderly male, on ventilator via tracheostomy currently in no distress, awake. Exam/Review of Systems Vital Signs Vitals Vital Signs Date Time Temp Pulse Resp B/P Pulse Ox O2 Delivery O2 Flow Rate FiO2 07/07/16 09:45 70 12 100 30 07/07/16 07:29 99.2 185/76 07/07/16 01:47 Mechanical Ventilator Intake and Output 07/06/16 07/06/16 07/07/16 14:59 22:59 06:59 Intake Total 350 ml 1080 ml 175 ml Output Total 475 ml 845 ml 665 ml Balance -125 ml 235 ml -490 ml Exam H EENT examination; supple neck, no JVD. No lymphadenopathy. Midline trachea. Tracheostomy in place. Insertion site is clean. Pupils are small bilaterally. Chest examination; clear to auscultation bilaterally. S1-S2 audible, no murmurs. Regular rhythm. Abdomen examination; soft, nondistended. G-tube in place. Bowel sounds audible. No organomegaly. Extremity examination; no peripheral edema. RESPIRATORY THERAPY DIRECTOR examination; patient has stable paraplegia. Results Result Diagram: 07/06/16 0505 07/06/16 0505 Medications Medications Current Medications Acetaminophen (Tylenol Liquid) 650 mg Q6 PRN GTB PAIN; Start 07/04/16 at 22:30 Allopurinol (Zyloprim) 300 mg DAILY GTB Last administered on 07/07/16 08:49; Admin Dose 300 MG; Start 07/05/16 at 09:00 Amlodipine Besylate (Norvasc) 5 mg BID GTB Last administered on 07/07/16 08:48 ; Admin Dose 5 MG; Start 07/05/16 at 09:00 Benazepril HCl (Lotensin) 40 mg DAILY GTB Last administered on 07/07/16 08:48; Admin Dose 40 MG; Start 07/05/16 at 09:00 Carbidopa/Levodopa (Sinemet (25/ 100)) 0.5 tab BID GTB Last administered on 07/07 08:46; Admin Dose 0.5 TAB; Start 07/05/16 at 09:00 Clonidine (Catapres) 0.1 mg Q6 PRN GTB ELEVATED BLOOD PRESSURE>150; Start at 22:30 Finasteride (Proscar) 5 mg DAILY GTB Last administered on 07/07/16 08:47; Admin Dose 5 MG; Start 07/05/16 at 09:00 Gabapentin (Neurontin) 300 mg BID GTB Last administered on 07/07/16 08:46; Admin Dose 300 MG; Start 07/05/16 at 09:00 Acetaminophen/ Hydrocodone Bitart ([place] (5/325)) 1 tab Q6 PRN GTB PAIN; Start 07/04/16 at 22:30 Lansoprazole (Prevacid) 30 mg DAILY@06 GTB Last administered on 07/07/16 06:35 ; Admin Dose 30 MG; Start 07/05/16 at 06:00 Lorazepam (Ativan) 0.5 mg Q6 PRN GTB ANXIETY Last administered on 07/06/16 20: 39; Admin Dose 0.5 MG; Start 07/04/16 at 22:30 Magnesium Oxide (Mag-Ox 400) 400 mg QHS GTB Last administered on 07/06/16 20:40 ; Admin Dose 400 MG; Start 07/05/16 at 21:00 Metoprolol Tartrate (Lopressor) 100 mg BID GTB Last administered on 07/07/16 08 :49; Admin Dose 100 MG; Start 07/05/16 at 09:00 Multivitamins Therapeutic (Theragran) 1 tab DAILY GTB Last administered on 11:09; Admin Dose 1 TAB; Start 07/05/16 at 09:00 Ondansetron HCl (Zofran Tab) 4 mg Q6H PRN GTB NAUSEA AND/OR VOMITING; Start 07/04/16 at 22:30 Polyethylene Glycol (Miralax) 17 gm DAILY PRN GTB CONSTIPATION; Start 07/04/16 at 22:30 Eye Lubricant 1 drop 1 drop DAILY BOTH EYES Last administered on 07/06/16 09:59 ; Admin Dose 1 DROP; Start 07/05/16 at 09:00 Ceftriaxone Sodium (Rocephin) 50 ml @ 100 mls/hr Q24H IVPB Last administered on 07/06/16 22:28; Admin Dose 100 MLS/HR; Start 07/04/16 at 22:30 Ascorbic Acid 500 mg 500 mg DAILY GTB Last administered on 07/07/16 08:47; Admin Dose 500 MG; Start 07/05/16 at 09:00 Potassium Chloride/Dextrose/ Sod Cl (D5-1/2ns + KCl 20 Meq) 1,000 ml @ 70 mls/ hr [id number] IV Last administered on 07/07/16 00:41; Admin Dose 70 MLS/HR; Start 07/05/16 at 11:30 Voriconazole (Vfend) 200 mg BID GTB Last administered on 07/07/16 08:47; Admin Dose 200 MG; Start 07/06/16 at 21:00 Collagenase (Santyl) 1 applic DAILY TOP ; Start 07/07/16 at 12:00 KARLI RILEY Jul 07, 2016 11:48
[2016-07-07 12:23] LABS: ADD SCAN DIFF NO
[2016-07-07 12:28] LABS: BASOPHILS % 0.2 % (0.0-2.0); EOSINOPHILS # 0.3 10^3/ul (0.0-0.5); EOSINOPHILS % 2.8 % (0.0-7.0); HEMATOCRIT 26.3 % (42.0-52.0); HEMOGLOBIN 8.2 g/dl (14.0-18.0); LYMPHOCYTES # 1.6 10^3/ul (0.8-2.9); MEAN CORPUSCULAR HEMOGLOBIN 29.9 pg (29.0-33.0); MEAN CORPUSCULAR HGB CONC 31.2 g/dl (32.0-37.0); MEAN PLATELET VOLUME 9.3 fl (7.4-10.4); MONOCYTES % 10.8 % (0.0-11.0); NEUTROPHILS % 67.8 % (39.0-77.0); PLATELET COUNT 310 10^3/UL (140-415); RED BLOOD COUNT 2.74 10^6/ul (4.70-6.10); RED CELL DISTRIBUTION WIDTH 15.8 % (11.5-14.5); WHITE BLOOD COUNT 8.9 10^3/ul (4.8-10.8)
[2016-07-07 12:41] LABS: CREATININE 0.51 mg/dl (0.61-1.24)
[2016-07-07 12:42] LABS: CALCIUM 8.2 mg/dl (8.4-10.2)
[2016-07-07 12:44] LABS: POTASSIUM 2.8 mmol/L (3.5-5.1)
[2016-07-07] MEDS: COLLAGENASE 30 GM TUBE TOP SCH (12:48)
--- NOTE | 2016-07-07 13:59 | PN ---
DATE: 07/07/2016 SUBJECTIVE: No acute events overnight. No fevers. The patient is nonverbal, noncommunicative, lyi ng comfortably in bed. LABORATORY DATA: WBC today 8.9, platelets 310, no shift, no bands. BUN 17, creatinine 0.51. MICROBIOLOGY: Urine culture on admission grew Dinorah glabrata. Blood culture grew coagulase-negat odalis staph species. INDWELLINGS: Trach, PEG, Hob[place]. ANTIMICROBIALS: 1. Voriconazole. 2. Status post fluconazole. 3. Rocephin. PHYSICAL EXAMINATION: GENERAL: This is a chronically ill-appearing, elderly man who is in no distress. HEENT: Head atraumatic, normocephalic. Sclerae anicteric. Buccal mucosa dry. NECK: Supple. Trach present. CHEST: Rise symmetrical. Breath sounds diminished. HEART: S1, S2. ABDOMEN: Soft, bowel sounds present. EXTREMITIES: No cyanosis. ASSESSMENT: 1. Acute on chronic respiratory failure. 2. Urinary tract infection. 3. Coagulase-negative staph bacteremia consistent with contaminant. 4. History of C-spine surgery in the past. 5. Dementia. 6. Dysphagia. PLAN: The patient remains stable. Continue present care, antibiotics. Follow chest x-ray. Follow recommendations of consultants. Dictated By: MARI GOODE FOUR ROLL CALENDER OPERATOR for NEMO ESTEVES/CHITRA Conf#: [id number] DID#: [id number]
[2016-07-07] MEDS ORDERED: SOD CHLORIDE 0.9% 100 ML ONE (14:40)
[2016-07-07] MEDS ORDERED: IOHEXOL 300MG/ML 150 ML BTL ONE (14:40)
--- NOTE | 2016-07-07 15:56 | PN ---
Date/Time of Note Date/Time of Note DATE: 07/07/16 TIME: 15:54 Assessment/Plan VTE Prophylaxis VTE Prophylaxis Intervention: SCD's Lines/Catheters IV C[facility]ter Type (from [facility]): [facility] Urinary Cath still in place: Yes Reason Cath still needed: urinary retention Assessment/Plan Assessment/Plan 1. Urinary tract infection per UA. Start the Diflucan. 2. Systemic inflammatory response syndrome secondary to urinary tract infection. Staphylococcus bacteremia. -per Dr. Shine in infection disease consultation. 3. Anemia of possible gastrointestinal bleed. Stool for occult blood is positive. - per Dr. Amezquita is following the patient in gastroenterology consultation. Continue to monitor hemoglobin and hematocrit. Status post EGD today with notion of gastritis, continue Protonix. 4 Chronic respiratory failure. Continue patient on ventilatory support. Continue pulmonary toilet and bronchodilators. - per Dr. Rivera from pulmonology standpoint. 5. Dysphagia with G-tube. - aspiration precautions 6. Hypertension. Continue patient on Lotensin, Norvasc and metoprolol. 7. Parkinson's disease. Continue Sinemet. 8. Cervical myelopathy, status post cervical spine and upper thoracic spine surgery by Dr. Sorensen. 9. Neck cystic mass, status post conservative treatment. - per Dr. Sorensen in neurosurgery consultation. - FU CT neck results 10. 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 Continue to assist patient with activities of daily living. 11. Sequential compression devices for deep venous thrombosis prophylaxis 12. Prevacid for peptic ulcer disease prophylaxis. Further recommendations based on clinical course. Plan of care discussed with Dr. Manriquez. Subjective 24 Hr Interval Summary Free Text/Dictation NAD. no GI bleeding reported. dw staff. Exam/Review of Systems Vital Signs Vitals Vital Signs Date Time Temp Pulse Resp B/P Pulse Ox O2 Delivery O2 Flow Rate FiO2 07/07/16 15:50 98.6 67 18 148/68 98 07/07/16 13:20 30 07/07/16 01:47 Mechanical Ventilator Intake and Output 07/06/16 07/06/16 07/07/16 15:00 23:00 07:00 Intake Total 350 ml 1165 ml 90 ml Output Total 500 ml 770 ml 665 ml Balance -150 ml 395 ml -575 ml Exam Constitutional: alert, oriented, well developed Psych: nl mood/affect Head: atraumatic Eyes: nl conjunctiva, nl sclera ENMT: nl external ears & nose Neck: non-tender, other Respiratory: diminished breath sounds Cardiovascular: nl pulses Gastrointestinal: non-tender, soft Musculoskeletal: muscle weakness Neurological: lethargic Results Result Diagram: 07/07/16 1205 07/07/16 1205 Results 24 hrs Laboratory Tests Test 07/07/16 12:05 Anion Gap 13 Basophils # 0.0 Basophils % 0.2 Blood Urea Nitrogen 17 # Calcium Level 8.2 L Carbon Dioxide Level 31 Chloride Level 107 Creatinine 0.51 L Eosinophils # 0.3 Eosinophils % 2.8 Glucose Level 102 Hematocrit 26.3 L Hemoglobin 8.2 L Lymphocytes # 1.6 Lymphocytes % 18.0 Mean Corpuscular Hemoglobin 29.9 Mean Corpuscular Hemoglobin Concent 31.2 L Mean Corpuscular Volume 96.0 Mean Platelet Volume 9.3 Monocytes # 1.0 H Monocytes % 10.8 Neutrophils # 6.0 Neutrophils % 67.8 Nucleated Red Blood Cells # 0.0 Nucleated Red Blood Cells % 0.0 Platelet Count 310 Potassium Level 2.8 *L Red Blood Count 2.74 L Red Cell Distribution Width 15.8 H Sodium Level 148 H White Blood Count 8.9 Medications Medications Current Medications Acetaminophen (Tylenol Liquid) 650 mg Q6 PRN GTB PAIN; Start 07/04/16 at 22:30 Allopurinol (Zyloprim) 300 mg DAILY GTB Last administered on 07/07/16 08:49; Admin Dose 300 MG; Start 07/05/16 at 09:00 Amlodipine Besylate (Norvasc) 5 mg BID GTB Last administered on 07/07/16 08:48 ; Admin Dose 5 MG; Start 07/05/16 at 09:00 Benazepril HCl (Lotensin) 40 mg DAILY GTB Last administered on 07/07/16 08:48; Admin Dose 40 MG; Start 07/05/16 at 09:00 Carbidopa/Levodopa (Sinemet (25/ 100)) 0.5 tab BID GTB Last administered on 07/07 08:46; Admin Dose 0.5 TAB; Start 07/05/16 at 09:00 Clonidine (Catapres) 0.1 mg Q6 PRN GTB ELEVATED BLOOD PRESSURE>150; Start at 22:30 Finasteride (Proscar) 5 mg DAILY GTB Last administered on 07/07/16 08:47; Admin Dose 5 MG; Start 07/05/16 at 09:00 Gabapentin (Neurontin) 300 mg BID GTB Last administered on 07/07/16 08:46; Admin Dose 300 MG; Start 07/05/16 at 09:00 Acetaminophen/ Hydrocodone Bitart ([place] (5/325)) 1 tab Q6 PRN GTB PAIN; Start 07/04/16 at 22:30 Lansoprazole (Prevacid) 30 mg DAILY@06 GTB Last administered on 07/07/16 06:35 ; Admin Dose 30 MG; Start 07/05/16 at 06:00 Lorazepam (Ativan) 0.5 mg Q6 PRN GTB ANXIETY Last administered on 07/06/16 20: 39; Admin Dose 0.5 MG; Start 07/04/16 at 22:30 Magnesium Oxide (Mag-Ox 400) 400 mg QHS GTB Last administered on 07/06/16 20:40 ; Admin Dose 400 MG; Start 07/05/16 at 21:00 Metoprolol Tartrate (Lopressor) 100 mg BID GTB Last administered on 07/07/16 08 :49; Admin Dose 100 MG; Start 07/05/16 at 09:00 Multivitamins Therapeutic (Theragran) 1 tab DAILY GTB Last administered on 11:09; Admin Dose 1 TAB; Start 07/05/16 at 09:00 Ondansetron HCl (Zofran Tab) 4 mg Q6H PRN GTB NAUSEA AND/OR VOMITING; Start 07/04/16 at 22:30 Polyethylene Glycol (Miralax) 17 gm DAILY PRN GTB CONSTIPATION; Start 07/04/16 at 22:30 Eye Lubricant 1 drop 1 drop DAILY BOTH EYES Last administered on 07/07/16 12:49 ; Admin Dose 1 DROP; Start 07/05/16 at 09:00 Ceftriaxone Sodium (Rocephin) 50 ml @ 100 mls/hr Q24H IVPB Last administered on 07/06/16 22:28; Admin Dose 100 MLS/HR; Start 07/04/16 at 22:30 Ascorbic Acid 500 mg 500 mg DAILY GTB Last administered on 07/07/16 08:47; Admin Dose 500 MG; Start 07/05/16 at 09:00 Potassium Chloride/Dextrose/ Sod Cl (D5-1/2ns + KCl 20 Meq) 1,000 ml @ 70 mls/ hr [id number] IV Last administered on 07/07/16 00:41; Admin Dose 70 MLS/HR; Start 07/05/16 at 11:30 Voriconazole (Vfend) 200 mg BID GTB Last administered on 07/07/16 08:47; Admin Dose 200 MG; Start 07/06/16 at 21:00 Collagenase (Santyl) 1 applic DAILY TOP Last administered on 07/07/16 12:48; Admin Dose 1 APPLIC; Start 07/07/16 at 12:00 GEOVANNY HARRIS Jul 07, 2016 15:56
[2016-07-07] MEDS ORDERED: POTASSIUM CHLORIDE 250 ML IVPB ONE (16:00)
--- NOTE | 2016-07-07 16:33 | RADRPT ---
PROCEDURE: CT soft tissue neck with contrast CLINICAL INDICATION: Anterior cervical subcutaneous mass TECHNIQUE: A CT of the soft tissues of the neck with contrast was performed on a multidetector CT s FlatStacker, with multiplanar reformats. 90 cc Omnipaque-300 intravenous contrast were administered. O ne or more of the following dose reduction techniques were used: Automated exposure control, adjustm ent in mA and / or kV according to patient size, use of iterative reconstructive technique. CTDI vo l = 11 mGy and DLP = 281 mGy-cm. COMPARISON: None available FINDINGS: Cervical postoperative changes present with anterior cervical discectomy - fusion at C3-4, C4-5, C5- 6 with interbody spacers and anterior fusion hardware. Hardware is intact and in satisfactory posit ion without surrounding lucency, fracture or destructive osseous changes seen. There is cervical - thoracic spondylosis with grade 1 anterolisthesis at C6-7. There is a circumscribed low density fluid collection with thin rim enhancement in the retropharynge al space spanning the C2-3 through C5-6 levels overlying the anterior first cervical fusion hardware which extends inferiorly - anteriorly on the right between the thyroid and sternocleidomastoid musc le up to the right anterior subcutaneous infrahyoid neck. The collection is somewhat difficult to m easure given its shape. It is estimated to measure up to about 8.5 x 5.0 x 5.3 cm in greatest dimens ions (CC x AP x transverse). No significant surrounding inflammatory changes are seen. No solid ma ss lesion or enlarged lymph node meeting size criteria is seen throughout the soft tissues of the ne ck. There is a tracheostomy tube which is in satisfactory position. Secretions are noted in the pharynx , larynx and subglottic trachea. The retropharyngeal collection partially effaces the lower pharynx posteriorly. Parapharyngeal spaces are grossly clear. Noted are carotid atherosclerotic calcifica tions. There are calcifications at the right floor the mouth in the region of the submandibular duct , the larger measuring 1 cm. No dilated duct is seen. The right submandibular gland may be small. The left submandibular gland, and bilateral parotid glands are grossly unremarkable. There are sma ll foci of gas in the left civil transportation engineer space which may be related to IV access. Imaged skull base is grossly intact. Mild mucosal thickening is seen at the left maxillary sinus. There is opacificati on of the bilateral middle ears and mastoids, with chronic-appearing mastoid changes. There is atel ectasis or scarring/postinflammatory changes in the lung apices. IMPRESSION: 1. Status post anterior cervical discectomy - fusion at C3-4, C4-5, C5-6 with large circumscribed l ow density collection with thin rim enhancement in the retropharyngeal space overlying the anterior fusion hardware, extending inferiorly - anteriorly on the right up to the right anterior subcutaneou s infrahyoid neck. Given its location, and relation to cervical postoperative changes, the collectio n may be a postoperative seroma or old hematoma. No significant surrounding inflammatory changes se en to suggest infection, but clinical - laboratory correlation is advised, and if indicated, aspirat ion may be considered. 2. Calcifications at the right floor of mouth in the right submandibular duct region suggestive of calculi without associated dilated duct seen. 3. Tracheostomy tube in place. 4. Paranasal sinus and bilateral mastoid disease described above. RPTAT: TT .Travis Yusuf MD, Date Time Electronically viewed and signed by .Travis Yusuf MD, on 07/07/2016 16:32 .O/
[2016-07-07] MEDS: MAGNESIUM OXIDE 400 MG TAB GTB SCH (20:23)
[2016-07-07] MEDS: CEFTRIAXONE 1 GM/50 ML (PMX) 50 ML IVPB SCH (22:19)
[2016-07-08] VITALS (30 sets, daily range): BP systolic 116–142; BP diastolic 56–74; PULSE 56–83; RESP 14–22
[2016-07-08] MEDS: ALBUTEROL HFA 8 GM INHALER INH SCH ×4 (01:19→19:17)
[2016-07-08] MEDS: IPRATROPIUM (HFA) 12.9 GM INHALER INH SCH ×4 (01:19→19:17)
[2016-07-08] MEDS: LANSOPRAZOLE 30 MG CAP GTB SCH (05:34)
[2016-07-08] MEDS: D5W-0.45 NACL + KCL 20 MEQ 1,000 ML IV SCH (06:20)
[2016-07-08 06:23] LABS: ADD SCAN DIFF NO
[2016-07-08 06:25] LABS: BASOPHILS % 0.2 % (0.0-2.0); EOSINOPHILS # 0.4 10^3/ul (0.0-0.5); EOSINOPHILS % 4.3 % (0.0-7.0); HEMATOCRIT 26.4 % (42.0-52.0); HEMOGLOBIN 8.5 g/dl (14.0-18.0); LYMPHOCYTES # 1.7 10^3/ul (0.8-2.9); LYMPHOCYTES % 17.8 % (15.0-51.0); MEAN CORPUSCULAR HEMOGLOBIN 30.8 pg (29.0-33.0); MEAN CORPUSCULAR HGB CONC 32.2 g/dl (32.0-37.0); MEAN CORPUSCULAR VOLUME 95.7 fl (82.0-101.0); MEAN PLATELET VOLUME 9.6 fl (7.4-10.4); MONOCYTES % 10.8 % (0.0-11.0); NEUTROPHIL # 6.2 10^3/ul (1.6-7.5); NEUTROPHILS % 66.5 % (39.0-77.0); PLATELET COUNT 312 10^3/UL (140-415); RED BLOOD COUNT 2.76 10^6/ul (4.70-6.10); RED CELL DISTRIBUTION WIDTH 15.6 % (11.5-14.5); WHITE BLOOD COUNT 9.3 10^3/ul (4.8-10.8)
[2016-07-08 07:00] LABS: CREATININE 0.49 mg/dl (0.61-1.24)
[2016-07-08] MEDS: ARTIFICIAL TEARS 15 ML OPH BOTH EYES SCH (08:39)
[2016-07-08] MEDS: CARBIDOPA/LEVODOPA (25/100) TAB GTB SCH ×2 (08:39→22:39)
[2016-07-08] MEDS: COLLAGENASE 30 GM TUBE TOP SCH (08:39)
[2016-07-08] MEDS: METOPROLOL 100 MG TAB GTB SCH ×2 (08:40→22:41)
[2016-07-08] MEDS: BENAZEPRIL 40 MG TAB GTB SCH (08:41)
[2016-07-08] MEDS: MULTIVITAMINS THERAPEUTIC TAB GTB SCH (08:41)
[2016-07-08] MEDS: GABAPENTIN 300 MG CAP GTB SCH ×2 (08:41→22:39)
[2016-07-08] MEDS: AMLODIPINE 5 MG TAB GTB SCH ×2 (08:42→22:41)
[2016-07-08] MEDS: ASCORBIC ACID 500 MG TAB GTB SCH (08:42)
[2016-07-08] MEDS: ALLOPURINOL 300 MG TAB GTB SCH (08:42)
[2016-07-08] MEDS: VORICONAZOLE 200 MG TAB GTB SCH ×2 (08:42→22:37)
[2016-07-08] MEDS: FINASTERIDE 5 MG TAB GTB SCH (08:42)
--- NOTE | 2016-07-08 09:49 | GILP ---
DATE OF PROCEDURE: 07/07/2016 NAME OF PROCEDURE: Esophagogastroduodenoscopy. PREOPERATIVE DIAGNOSIS: Patient presenting with a history of severe anemia, with a hemoglobin of 7. 4. Rule out peptic ulcer disease and gastrostomy site ulcer disease. POSTOPERATIVE DIAGNOSES: 1. Mild gastritis of the stomach. 2. Mild reflux esophagitis. 3. No ulcer. 4. No gastrostomy site ulcer. DESCRIPTION OF PROCEDURE: After the informed written consent was obtained, the patient was asked to lie on the left lateral side. Intravenous anesthesia was given by the anesthesiologist, Dr. Bowser. When the patient became somnolent, the Olympus video upper endoscope was introduced into the orophar ynx, then into the esophagus. The esophagus appeared to show evidence of minimal erythema. The sco pe at this time was advanced into the stomach. A few areas of erythema were noted, with no ulcers, no neoplasm. The gastrostomy site was noted with no ulcer disease. Hobbs catheter was noted in place of the G-tube. The duodenum appeared normal up to the end of the third portion. The scope at this time was withdrawn. No additional abnormalities were detected and the procedure was terminated. PLAN: Recommend Pepcid 20 mg p.o. b.i.d. and recommend a colonoscopy. Dictated By: LAILA HOGAN/CHITRA Conf#: [id number] DID#: [id number] CC: CYNTHIA GONZALEZ MD;*EndCC*
--- NOTE | 2016-07-08 12:41 | CONS ---
Date/Time of Note Date/Time of Note DATE: 07/08/16 TIME: 12:39 Assessment/Plan Assessment/Plan Chief Complaint/Hosp Course SUBJECTIVE: No acute events overnight. No fevers. The patient is nonverbal, noncommunicative, lying comfortably in bed. MICROBIOLOGY: Urine culture on admission grew Dinorah glabrata. Blood culture grew coagulase-negative staph species. INDWELLINGS: Trach, PEG, Hobbs. ANTIMICROBIALS: 1. Voriconazole. 2. Rocephin. PHYSICAL EXAMINATION: GENERAL: This is a chronically ill-appearing, elderly man who is in no distress. HEENT: Head atraumatic, normocephalic. Sclerae anicteric. Buccal mucosa dry. NECK: Supple. Trach present. CHEST: Rise symmetrical. Breath sounds diminished. HEART: S1, S2. ABDOMEN: Soft, bowel sounds present. EXTREMITIES: No cyanosis. ASSESSMENT: 1. Acute on chronic respiratory failure. 2. Urinary tract infection. 3. Coagulase-negative staph bacteremia consistent with contaminant. 4. History of C-spine surgery in the past. 5. Dementia. 6. Dysphagia. PLAN: The patient remains stable. Continue present care, complete antibiotics. Follow recommendations of consultants. dw staff Problems: Consultation Date/Type/Reason Admit Date/Time Jul 04, 2016 at 10:48 Initial Consult Date 07/06/16 Type of Consultation: ID Exam/Review of Systems Vital Signs Vitals Vital Signs Date Time Temp Pulse Resp B/P Pulse Ox O2 Delivery O2 Flow Rate FiO2 07/08/16 11:07 98.5 58 16 116/56 99 07/08/16 09:02 30 07/08/16 06:00 Mechanical Ventilator Intake and Output 07/07/16 07/07/16 07/08/16 15:00 23:00 07:00 Intake Total 1080 ml 300 ml Output Total 1200 ml 600 ml Balance -120 ml -300 ml Results Result Diagram: 07/08/16 0545 07/08/16 0545 Results 24 hrs Laboratory Tests Test 07/08/16 05:45 Anion Gap 13 Basophils # 0.0 Basophils % 0.2 Blood Urea Nitrogen 13 Calcium Level 8.0 L Carbon Dioxide Level 31 Chloride Level 107 Creatinine 0.49 L Eosinophils # 0.4 Eosinophils % 4.3 Glucose Level 127 Hematocrit 26.4 L Hemoglobin 8.5 L Lymphocytes # 1.7 Lymphocytes % 17.8 Mean Corpuscular Hemoglobin 30.8 Mean Corpuscular Hemoglobin Concent 32.2 Mean Corpuscular Volume 95.7 Mean Platelet Volume 9.6 Monocytes # 1.0 H Monocytes % 10.8 Neutrophils # 6.2 Neutrophils % 66.5 Nucleated Red Blood Cells # 0.0 Nucleated Red Blood Cells % 0.0 Platelet Count 312 Potassium Level 3.0 L Red Blood Count 2.76 L Red Cell Distribution Width 15.6 H Sodium Level 148 H White Blood Count 9.3 Medications Medications Current Medications Acetaminophen (Tylenol Liquid) 650 mg Q6 PRN GTB PAIN; Start 07/04/16 at 22:30 Allopurinol (Zyloprim) 300 mg DAILY GTB Last administered on 07/08/16 08:42; Admin Dose 300 MG; Start 07/05/16 at 09:00 Amlodipine Besylate (Norvasc) 5 mg BID GTB Last administered on 07/08/16 08:42 ; Admin Dose 5 MG; Start 07/05/16 at 09:00 Benazepril HCl (Lotensin) 40 mg DAILY GTB Last administered on 07/08/16 08:41 ; Admin Dose 40 MG; Start 07/05/16 at 09:00 Carbidopa/Levodopa (Sinemet (25/ 100)) 0.5 tab BID GTB Last administered on 08:39; Admin Dose 0.5 TAB; Start 07/05/16 at 09:00 Clonidine (Catapres) 0.1 mg Q6 PRN GTB ELEVATED BLOOD PRESSURE>150; Start at 22:30 Finasteride (Proscar) 5 mg DAILY GTB Last administered on 07/08/16 08:42; Admin Dose 5 MG; Start 07/05/16 at 09:00 Gabapentin (Neurontin) 300 mg BID GTB Last administered on 07/08/16 08:41; Admin Dose 300 MG; Start 07/05/16 at 09:00 Acetaminophen/ Hydrocodone Bitart ([place] (5/325)) 1 tab Q6 PRN GTB PAIN; Start 07/04/16 at 22:30 Lansoprazole (Prevacid) 30 mg DAILY@06 GTB Last administered on 07/08/16 05:34 ; Admin Dose 30 MG; Start 07/05/16 at 06:00 Lorazepam (Ativan) 0.5 mg Q6 PRN GTB ANXIETY Last administered on 07/06/16 20: 39; Admin Dose 0.5 MG; Start 07/04/16 at 22:30 Magnesium Oxide (Mag-Ox 400) 400 mg QHS GTB Last administered on 07/07/16 20:23 ; Admin Dose 400 MG; Start 07/05/16 at 21:00 Metoprolol Tartrate (Lopressor) 100 mg BID GTB Last administered on 07/08/16 08:40; Admin Dose 100 MG; Start 07/05/16 at 09:00 Multivitamins Therapeutic (Theragran) 1 tab DAILY GTB Last administered on 07/08 08:41; Admin Dose 1 TAB; Start 07/05/16 at 09:00 Ondansetron HCl (Zofran Tab) 4 mg Q6H PRN GTB NAUSEA AND/OR VOMITING; Start 07/04/16 at 22:30 Polyethylene Glycol (Miralax) 17 gm DAILY PRN GTB CONSTIPATION; Start 07/04/16 at 22:30 Eye Lubricant 1 drop 1 drop DAILY BOTH EYES Last administered on 07/08/16 08: 39; Admin Dose 1 DROP; Start 07/05/16 at 09:00 Ceftriaxone Sodium (Rocephin) 50 ml @ 100 mls/hr Q24H IVPB Last administered on 07/07/16 22:19; Admin Dose 100 MLS/HR; Start 07/04/16 at 22:30 Ascorbic Acid 500 mg 500 mg DAILY GTB Last administered on 07/08/16 08:42; Admin Dose 500 MG; Start 07/05/16 at 09:00 Potassium Chloride/Dextrose/ Sod Cl (D5-1/2ns + KCl 20 Meq) 1,000 ml @ 70 mls/ hr [id number] IV Last administered on 07/08/16 06:20; Admin Dose 70 MLS/HR; Start 07/05/16 at 11:30 Voriconazole (Vfend) 200 mg BID GTB Last administered on 07/08/16 08:42; Admin Dose 200 MG; Start 07/06/16 at 21:00 Collagenase (Santyl) 1 applic DAILY TOP Last administered on 07/08/16 08:39; Admin Dose 1 APPLIC; Start 07/07/16 at 12:00 MARI GOODE NP Jul 08, 2016 12:40
--- NOTE | 2016-07-08 14:12 | CONS ---
Date/Time of Note Date/Time of Note DATE: 07/08/16 TIME: 14:09 Assessment/Plan Assessment/Plan Additional Assessment/Plan Ventilator settings; AC of 12, tidal volume 500, PEEP of 5, 30% FiO2. Next Assessment recommendations; 1. Patient with chronic respiratory failure admitted for UTI and sepsis. 2. 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 3. Anemia. 4. 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 5. COPD 6. Dementia. Continue current treatment. Wean the patient from ventilator as tolerated to cool aerosol. Consultation Date/Type/Reason Admit Date/Time Jul 04, 2016 at 10:48 Initial Consult Date 07/06/16 Type of Consultation: Pulmonary 24 HR Interval Summary Free Text/Dictation Patient condition remains stable. Patient is somewhat arousable. Has remained ventilator dependent. Has been hemodynamically stable. General exam; elderly male, awake currently in no distress. On ventilator via tracheostomy. Exam/Review of Systems Vital Signs Vitals Vital Signs Date Time Temp Pulse Resp B/P Pulse Ox O2 Delivery O2 Flow Rate FiO2 07/08/16 13:52 98.4 60 14 142/60 96 07/08/16 11:50 30 07/08/16 06:00 Mechanical Ventilator Intake and Output 07/07/16 07/07/16 07/08/16 15:00 23:00 07:00 Intake Total 1080 ml 300 ml Output Total 1200 ml 600 ml Balance -120 ml -300 ml Exam H EENT examination; supple neck, no JVD. Tracheostomy in place. Incision site is clean. There is a cystic mass involving the right paratracheal area. No lymphadenopathy. Chest examination; clear to auscultation bilaterally. S1-S2 audible, no murmurs. Regular rhythm. Abdomen examination; soft, nontender. No organomegaly. G-tube in place. No organomegaly. Extremity exam is; no peripheral edema. QUALITY ASSURANCE MONITOR exam is; patient is awake follows simple commands has paraplegia. Results Result Diagram: 07/08/16 0545 07/08/16 0545 Results 24 hrs Laboratory Tests Test 07/08/16 05:45 Anion Gap 13 Basophils # 0.0 Basophils % 0.2 Blood Urea Nitrogen 13 Calcium Level 8.0 L Carbon Dioxide Level 31 Chloride Level 107 Creatinine 0.49 L Eosinophils # 0.4 Eosinophils % 4.3 Glucose Level 127 Hematocrit 26.4 L Hemoglobin 8.5 L Lymphocytes # 1.7 Lymphocytes % 17.8 Mean Corpuscular Hemoglobin 30.8 Mean Corpuscular Hemoglobin Concent 32.2 Mean Corpuscular Volume 95.7 Mean Platelet Volume 9.6 Monocytes # 1.0 H Monocytes % 10.8 Neutrophils # 6.2 Neutrophils % 66.5 Nucleated Red Blood Cells # 0.0 Nucleated Red Blood Cells % 0.0 Platelet Count 312 Potassium Level 3.0 L Red Blood Count 2.76 L Red Cell Distribution Width 15.6 H Sodium Level 148 H White Blood Count 9.3 Medications Medications Current Medications Acetaminophen (Tylenol Liquid) 650 mg Q6 PRN GTB PAIN; Start 07/04/16 at 22:30 Allopurinol (Zyloprim) 300 mg DAILY GTB Last administered on 07/08/16 08:42; Admin Dose 300 MG; Start 07/05/16 at 09:00 Amlodipine Besylate (Norvasc) 5 mg BID GTB Last administered on 07/08/16 08:42 ; Admin Dose 5 MG; Start 07/05/16 at 09:00 Benazepril HCl (Lotensin) 40 mg DAILY GTB Last administered on 07/08/16 08:41 ; Admin Dose 40 MG; Start 07/05/16 at 09:00 Carbidopa/Levodopa (Sinemet (25/ 100)) 0.5 tab BID GTB Last administered on 08:39; Admin Dose 0.5 TAB; Start 07/05/16 at 09:00 Clonidine (Catapres) 0.1 mg Q6 PRN GTB ELEVATED BLOOD PRESSURE>150; Start at 22:30 Finasteride (Proscar) 5 mg DAILY GTB Last administered on 07/08/16 08:42; Admin Dose 5 MG; Start 07/05/16 at 09:00 Gabapentin (Neurontin) 300 mg BID GTB Last administered on 07/08/16 08:41; Admin Dose 300 MG; Start 07/05/16 at 09:00 Acetaminophen/ Hydrocodone Bitart ([place] (5/325)) 1 tab Q6 PRN GTB PAIN; Start 07/04/16 at 22:30 Lansoprazole (Prevacid) 30 mg DAILY@06 GTB Last administered on 07/08/16 05:34 ; Admin Dose 30 MG; Start 07/05/16 at 06:00 Lorazepam (Ativan) 0.5 mg Q6 PRN GTB ANXIETY Last administered on 07/06/16 20: 39; Admin Dose 0.5 MG; Start 07/04/16 at 22:30 Magnesium Oxide (Mag-Ox 400) 400 mg QHS GTB Last administered on 07/07/16 20:23 ; Admin Dose 400 MG; Start 07/05/16 at 21:00 Metoprolol Tartrate (Lopressor) 100 mg BID GTB Last administered on 07/08/16 08:40; Admin Dose 100 MG; Start 07/05/16 at 09:00 Multivitamins Therapeutic (Theragran) 1 tab DAILY GTB Last administered on 07/08 08:41; Admin Dose 1 TAB; Start 07/05/16 at 09:00 Ondansetron HCl (Zofran Tab) 4 mg Q6H PRN GTB NAUSEA AND/OR VOMITING; Start 07/04/16 at 22:30 Polyethylene Glycol (Miralax) 17 gm DAILY PRN GTB CONSTIPATION; Start 07/04/16 at 22:30 Eye Lubricant 1 drop 1 drop DAILY BOTH EYES Last administered on 07/08/16 08: 39; Admin Dose 1 DROP; Start 07/05/16 at 09:00 Ceftriaxone Sodium (Rocephin) 50 ml @ 100 mls/hr Q24H IVPB Last administered on 07/07/16 22:19; Admin Dose 100 MLS/HR; Start 07/04/16 at 22:30 Ascorbic Acid 500 mg 500 mg DAILY GTB Last administered on 07/08/16 08:42; Admin Dose 500 MG; Start 07/05/16 at 09:00 Potassium Chloride/Dextrose/ Sod Cl (D5-1/2ns + KCl 20 Meq) 1,000 ml @ 70 mls/ hr [id number] IV Last administered on 07/08/16 06:20; Admin Dose 70 MLS/HR; Start 07/05/16 at 11:30 Voriconazole (Vfend) 200 mg BID GTB Last administered on 07/08/16 08:42; Admin Dose 200 MG; Start 07/06/16 at 21:00 Collagenase (Santyl) 1 applic DAILY TOP Last administered on 07/08/16 08:39; Admin Dose 1 APPLIC; Start 07/07/16 at 12:00 KARLI RILEY Jul 08, 2016 14:12
--- NOTE | 2016-07-08 14:26 | CONS ---
DATE OF ADMISSION: 07/04/2016 DATE OF CONSULTATION: 07/07/2016 CONSULTING SERVICE: Neurosurgery REQUESTING PHYSICIAN: Renny Manriquez MD HISTORY OF PRESENT ILLNESS: This is an 81-year-old male who was literally dropped off by the staff at the nursing facility that he was previously residing in at my clinic approximately 3-1/2 months ago. The patient presented in a wheelchair, unable to move his lower extremities and sitting in a d iaper. When I continued asking the patient questions, it turned out that the patient had been ambul ating up until about 2 months or so prior to presenting to my clinic. The patient started having di fficulty ambulating and approximately several weeks prior to presenting to my clinic, the patient st arted having urinary incontinence. They then continued to care for the patient at the [facility] facility, but no further evaluation was done. At my request, the patient received further imagin g of his spine that showed cervical stenosis as well as thoracic stenosis. I requested from the [facility]'s insurance that he receive urgent authorization for surgical decompression of both the cervica l and thoracic spine to #1, try to prevent further deterioration of the patient's condition and poss ibly help improve the patient's paraplegia and urinary incontinence that was most likely related to a neurogenic bladder. The patient then underwent 2 stages of cervical decompression and fusion as w ell as thoracic decompression and posterior fusion. The patient even preoperatively seem to have so me respiratory difficulties and postoperatively the patient was initially extubated, but he was havi ng respiratory distress. He had to be reintubated. He eventually underwent a tracheostomy. The juan f martinez was weaned on and off the ventilator and he was subsequently discharged to another skilled [facility] facility. My office and I requested from this group home facility to make arrangements for the patient to be brought to my office for a postoperative visit. However, unfortunately that was never done. The patient did seem to have some slight improvement of his lower extremity movement, s pecifically in the right side with minimal movement in the left lower extremity. His urinary incont inence during his hospitalization at [facility] postoperatively did not seem to have changed. I am now consulted to evaluate the patient now approximately 3 months postop for "cervica l mass." The reason for the patient's current admission has been according to the medical records, pneumonia and urinary tract infection that seems to have since improved. The patient was initially in the intensive care unit and now has been able to be moved up to the floor. The patient's white b lood cell count has also come down to around 8 and according to the nursing records, the patient is now afebrile. PAST MEDICAL HISTORY: Parkinsonism? Hypertension. SOCIAL HISTORY: No recent history of smoking tobacco. No history of drinking alcoholic beverages. The patient according to medical records does not use illicit or recreational drugs. ALLERGIES: NO KNOWN DRUG ALLERGIES. REVIEW OF SYSTEMS: Currently limited as the patient has a tracheostomy in place. PHYSICAL EXAMINATION: The patient is seen at bedside. He is on the medical floor. He has a trache ostomy in place and is connected to the ventilator. The patient is unable to speak secondary to the tracheostomy. He seems to be awake and alert. He does seem to recognize me. He is able to follow simple commands. The patient is able to move his bilateral upper extremities proximally and distal ly, at least 4/5. His face is symmetric. Tongue is midline. Extraocular movements seem to be diana sly intact. Muscle bulk bilateral upper extremities is decreased. Muscle tone in bilateral upper e xtremities seems to be normal. Muscle bulk in bilateral lower extremities is decreased. Muscle ton e in bilateral lower extremities is increased. The patient is able to do ankle dorsiflexion and lina ntar flexion in the right lower extremity of at least 3/5. The patient also has some more proximal right lower extremity movement including right hip flexion and right knee extension of at least 2+/5 . The patient has minimal toe movement in the left lower extremity. The patient has a Hobbs cathet er inserted. Evaluating the patient's anterior cervical incision, it seems to have healed well. Th e patient's posterior thoracic incision also seems to have healed well. The patient has a tracheost naun in place. Palpation of the right anterior cervical area shows a soft fluid-filled mass that angel ears to be a cystic mass just around the patient's anterior cervical incision. There is no srinivasan-inc isional erythema and there is no discharge. IMAGING: The patient has received a CT of the cervical spine with and without contrast. It shows t he patient's prior anterior cervical diskectomy and multilevel fusion in place. The hardware is int act. There is a subcutaneous fluid cavity that seemed to correspond with what I was called to consu lt regarding a cervical mass. This mass that seems to be well-circumscribed and it is not significa ntly enhancing. The mass does not appear to be a cervical abscess, but is rather either a seroma or a pseudomeningocele. ASSESSMENT AND PLAN: This is an elderly gentleman with a very unfortunate history as discussed enedina stephens. As I have spoken on the phone with Dr. Manriquez and also spoke with the patient's nurse, I would not recommend draining the seroma or the pseudomeningocele at this point as #1, this is most likely to resolve on its own over time and #2, given the patient's recent history of pneumonia and urinary tract infection, putting a needle that could be done at bedside even under standard sterile fashion can possibly cause an infection in the cervical area where the operation was done and can possibly infect the patient's anterior cervical hardware. Therefore, the risks outweigh the benefits of this point in regards to draining the cyst that seems to be there in a benign fashion. I would recommen d that once the patient's overall systemic condition is improved and he is discharged from the [facility], that he receives aggressive physical therapy to hopefully allow the patient to gain more functi on of his lower extremities. I would also like the patient to follow up with me in clinic in 6 to 8 weeks for another visit. Dictated By: FARHEEN CAMPBELL MD, SA/CHITRA Conf#: [id number] DID#: [id number]
[2016-07-08] MEDS ORDERED: POTASSIUM CHLORIDE 20 MEQ in SOD CHLORIDE 0.9% 100 ML IVPB ONE (16:00)
--- NOTE | 2016-07-08 17:52 | PN ---
Date/Time of Note Date/Time of Note DATE: 07/08/16 TIME: 17:49 Assessment/Plan VTE Prophylaxis VTE Prophylaxis Intervention: SCD's Lines/Catheters IV C[facility]ter Type (from [facility]): Peripheral IV Urinary Cath still in place: Yes Reason Cath still needed: urinary retention Assessment/Plan Chief Complaint/Hosp Course ASSESSMENT AND PLAN: 1. Urinary tract infection per UA. Continue Vfend. 2. Systemic inflammatory response syndrome secondary to urinary tract infection. Dr. Shine is following an infection disease consultation. 3. Anemia of possible gastrointestinal bleed. Stool for occult blood is positive. Dr. Amezquita is following the patient in gastroenterology consultation. Continue to monitor hemoglobin and hematocrit. Status post EGD today with notion of gastritis, continue Protonix. 4 Chronic respiratory failure. Continue patient on ventilatory support. Continue pulmonary toilet and bronchodilators. Dr. Rivera will be following the patient from pulmonology standpoint. 5. Dysphagia with G-tube. 6. Hypertension. Continue patient on Lotensin, Norvasc and metoprolol. 7. Parkinson's disease. Continue Sinemet. 8. Cervical myelopathy, status post cervical spine and upper thoracic spine surgery by Dr. Sorensen. 9. Neck cystic mass, status post conservative treatment. Dr. Sorensen, neurosurgery consultation is appreciated. No drainage is recommended at this time. 10. 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 Continue to assist patient with activities of daily living. 11. Hypernatremia continue IV fluids and free water via G-tube. 12. Hypokalemia, potassium was replaced. Continue sequential compression devices for deep venous thrombosis prophylaxis and Prevacid for peptic ulcer disease prophylaxis. Further recommendations based on clinical course. Plan of care discussed with Dr. Manriquez. Problems: Subjective 24 Hr Interval Summary Free Text/Dictation Patient has diarrhea per nurse, check stool for C. difficile, episode of nonbilious nonbloody emesis yesterday, continue to monitor patient is afebrile. Exam/Review of Systems Vital Signs Vitals Vital Signs Date Time Temp Pulse Resp B/P Pulse Ox O2 Delivery O2 Flow Rate FiO2 07/08/16 17:13 98.3 66 20 125/68 96 07/08/16 15:10 30 07/08/16 06:00 Mechanical Ventilator Intake and Output 07/07/16 07/07/16 07/08/16 15:00 23:00 07:00 Intake Total 1080 ml 300 ml Output Total 1200 ml 600 ml Balance -120 ml -300 ml Exam GENERAL: Well-developed, well-nourished gentleman currently on ventilator support via tracheostomy, awake, alert. HEENT: Head is atraumatic, normocephalic. TASHIA. NECK: Supple. The patient has right lateral anterior nontender, nonerythematous cystic mass. Tracheostomy at the base of the neck with a small amount of whitish secretions. LUNGS: Scattered rhonchi bilaterally, slightly diminished at the bases. There are no wheezes, rales noted. HEART: Normal S1, S2. No murmurs, gallops, clicks, rubs noted. ABDOMEN: Protuberant, soft, nondistended, nontender. Bowel sounds present. The patient has a G-tube with intact stoma. EXTREMITIES: There is no edema, clubbing, cyanosis. Pulses equal bilaterally 2 +. SKIN: There is no obvious rash, petechiae noted. NEUROLOGIC: The patient is awake, alert, follows simple immediate commands. The patient has left-sided weakness. Results Result Diagram: 07/08/16 0545 07/08/1645 Results 24 hrs Laboratory Tests Test 07/08/16 05:45 Anion Gap 13 Basophils # 0.0 Basophils % 0.2 Blood Urea Nitrogen 13 Calcium Level 8.0 L Carbon Dioxide Level 31 Chloride Level 107 Creatinine 0.49 L Eosinophils # 0.4 Eosinophils % 4.3 Glucose Level 127 Hematocrit 26.4 L Hemoglobin 8.5 L Lymphocytes # 1.7 Lymphocytes % 17.8 Mean Corpuscular Hemoglobin 30.8 Mean Corpuscular Hemoglobin Concent 32.2 Mean Corpuscular Volume 95.7 Mean Platelet Volume 9.6 Monocytes # 1.0 H Monocytes % 10.8 Neutrophils # 6.2 Neutrophils % 66.5 Nucleated Red Blood Cells # 0.0 Nucleated Red Blood Cells % 0.0 Platelet Count 312 Potassium Level 3.0 L Red Blood Count 2.76 L Red Cell Distribution Width 15.6 H Sodium Level 148 H White Blood Count 9.3 Medications Medications Current Medications Acetaminophen (Tylenol Liquid) 650 mg Q6 PRN GTB PAIN; Start 07/04/16 at 22:30 Allopurinol (Zyloprim) 300 mg DAILY GTB Last administered on 07/08/16 08:42; Admin Dose 300 MG; Start 07/05/16 at 09:00 Amlodipine Besylate (Norvasc) 5 mg BID GTB Last administered on 07/08/16 08:42 ; Admin Dose 5 MG; Start 07/05/16 at 09:00 Benazepril HCl (Lotensin) 40 mg DAILY GTB Last administered on 07/08/16 08:41 ; Admin Dose 40 MG; Start 07/05/16 at 09:00 Carbidopa/Levodopa (Sinemet (25/ 100)) 0.5 tab BID GTB Last administered on 08:39; Admin Dose 0.5 TAB; Start 07/05/16 at 09:00 Clonidine (Catapres) 0.1 mg Q6 PRN GTB ELEVATED BLOOD PRESSURE>150; Start at 22:30 Finasteride (Proscar) 5 mg DAILY GTB Last administered on 07/08/16 08:42; Admin Dose 5 MG; Start 07/05/16 at 09:00 Gabapentin (Neurontin) 300 mg BID GTB Last administered on 07/08/16 08:41; Admin Dose 300 MG; Start 07/05/16 at 09:00 Acetaminophen/ Hydrocodone Bitart ([place] (5/325)) 1 tab Q6 PRN GTB PAIN; Start 07/04/16 at 22:30 Lansoprazole (Prevacid) 30 mg DAILY@06 GTB Last administered on 07/08/16 05:34 ; Admin Dose 30 MG; Start 07/05/16 at 06:00 Lorazepam (Ativan) 0.5 mg Q6 PRN GTB ANXIETY Last administered on 07/06/16 20: 39; Admin Dose 0.5 MG; Start 07/04/16 at 22:30 Magnesium Oxide (Mag-Ox 400) 400 mg QHS GTB Last administered on 07/07/16 20:23 ; Admin Dose 400 MG; Start 07/05/16 at 21:00 Metoprolol Tartrate (Lopressor) 100 mg BID GTB Last administered on 07/08/16 08:40; Admin Dose 100 MG; Start 07/05/16 at 09:00 Multivitamins Therapeutic (Theragran) 1 tab DAILY GTB Last administered on 07/08 08:41; Admin Dose 1 TAB; Start 07/05/16 at 09:00 Ondansetron HCl (Zofran Tab) 4 mg Q6H PRN GTB NAUSEA AND/OR VOMITING; Start 07/04/16 at 22:30 Polyethylene Glycol (Miralax) 17 gm DAILY PRN GTB CONSTIPATION; Start 07/04/16 at 22:30 Eye Lubricant 1 drop 1 drop DAILY BOTH EYES Last administered on 07/08/16 08: 39; Admin Dose 1 DROP; Start 07/05/16 at 09:00 Ceftriaxone Sodium (Rocephin) 50 ml @ 100 mls/hr Q24H IVPB Last administered on 07/07/16 22:19; Admin Dose 100 MLS/HR; Start 07/04/16 at 22:30 Ascorbic Acid 500 mg 500 mg DAILY GTB Last administered on 07/08/16 08:42; Admin Dose 500 MG; Start 07/05/16 at 09:00 Potassium Chloride/Dextrose/ Sod Cl (D5-1/2ns + KCl 20 Meq) 1,000 ml @ 70 mls/ hr [id number] IV Last administered on 07/08/16 06:20; Admin Dose 70 MLS/HR; Start 07/05/16 at 11:30 Voriconazole (Vfend) 200 mg BID GTB Last administered on 07/08/16 08:42; Admin Dose 200 MG; Start 07/06/16 at 21:00 Collagenase 1 applic 1 applic DAILY TOP Last administered on 07/08/16 08:39; Admin Dose 1 APPLIC; Start 07/07/16 at 12:00 Potassium Chloride/Sodium Chloride (KCl/NS) 110 ml @ 55 mls/hr ONCE ONCE IVPB Last administered on 07/08/16 17:05; Admin Dose 55 MLS/HR; Start 07/08/16 at 16:00; Stop 07/08/16 at 17:59 MARCO DOE Jul 08, 2016 17:52
[2016-07-08] MEDS: MAGNESIUM OXIDE 400 MG TAB GTB SCH (22:40)
[2016-07-08] MEDS: CEFTRIAXONE 1 GM/50 ML (PMX) 50 ML IVPB SCH (22:59)
[2016-07-09] VITALS (26 sets, daily range): BP systolic 105–146; BP diastolic 56–63; PULSE 54–63; RESP 13–20
[2016-07-09] MEDS: ALBUTEROL HFA 8 GM INHALER INH SCH ×4 (01:04→21:12)
[2016-07-09] MEDS: IPRATROPIUM (HFA) 12.9 GM INHALER INH SCH ×4 (01:04→21:12)
[2016-07-09] MEDS: D5W-0.45 NACL + KCL 20 MEQ 1,000 ML IV SCH ×2 (01:46→17:09)
[2016-07-09] MEDS: LANSOPRAZOLE 30 MG CAP GTB SCH (06:06)
[2016-07-09 06:10] LABS: ADD SCAN DIFF NO
[2016-07-09 06:14] LABS: BASOPHILS % 0.1 % (0.0-2.0); EOSINOPHILS # 0.4 10^3/ul (0.0-0.5); EOSINOPHILS % 4.9 % (0.0-7.0); HEMATOCRIT 27.1 % (42.0-52.0); HEMOGLOBIN 8.3 g/dl (14.0-18.0); LYMPHOCYTES # 1.8 10^3/ul (0.8-2.9); MEAN CORPUSCULAR HEMOGLOBIN 29.9 pg (29.0-33.0); MEAN CORPUSCULAR HGB CONC 30.6 g/dl (32.0-37.0); MEAN CORPUSCULAR VOLUME 97.5 fl (82.0-101.0); MEAN PLATELET VOLUME 9.7 fl (7.4-10.4); MONOCYTES % 11.6 % (0.0-11.0); NEUTROPHIL # 5.6 10^3/ul (1.6-7.5); NEUTROPHILS % 63.1 % (39.0-77.0); PLATELET COUNT 323 10^3/UL (140-415); RED BLOOD COUNT 2.78 10^6/ul (4.70-6.10); RED CELL DISTRIBUTION WIDTH 15.5 % (11.5-14.5); WHITE BLOOD COUNT 8.8 10^3/ul (4.8-10.8)
[2016-07-09 06:26] LABS: POTASSIUM 3.3 mmol/L (3.5-5.1)
[2016-07-09 06:28] LABS: CREATININE 0.52 mg/dl (0.61-1.24)
[2016-07-09 06:29] LABS: CALCIUM 7.8 mg/dl (8.4-10.2)
[2016-07-09] MEDS: COLLAGENASE 30 GM TUBE TOP SCH (09:00)
[2016-07-09] MEDS: ALLOPURINOL 300 MG TAB GTB SCH (09:00)
[2016-07-09] MEDS: VORICONAZOLE 200 MG TAB GTB SCH ×2 (10:13→21:09)
[2016-07-09] MEDS: FINASTERIDE 5 MG TAB GTB SCH (10:13)
[2016-07-09] MEDS: ASCORBIC ACID 500 MG TAB GTB SCH (10:13)
[2016-07-09] MEDS: BENAZEPRIL 40 MG TAB GTB SCH (10:14)
[2016-07-09] MEDS: CARBIDOPA/LEVODOPA (25/100) TAB GTB SCH ×2 (10:14→21:06)
[2016-07-09] MEDS: METOPROLOL 100 MG TAB GTB SCH ×2 (10:15→21:06)
[2016-07-09] MEDS: GABAPENTIN 300 MG CAP GTB SCH ×2 (10:16→21:06)
[2016-07-09] MEDS: MULTIVITAMINS THERAPEUTIC TAB GTB SCH (10:17)
[2016-07-09] MEDS: AMLODIPINE 5 MG TAB GTB SCH ×2 (10:17→21:06)
[2016-07-09] MEDS: ARTIFICIAL TEARS 15 ML OPH BOTH EYES SCH (10:18)
--- NOTE | 2016-07-09 12:44 | CONS ---
Date/Time of Note Date/Time of Note DATE: 07/09/16 TIME: 12:42 Assessment/Plan Assessment/Plan Additional Assessment/Plan Ventilator settings are AC of 12, tidal volume 500, PEEP of 5, 30% FiO2. Assessment recommendations; 1. Patient admitted for UTI with sepsis with interval resolution. 2. Chronic respiratory failure, patient ventilator dependent. Has failed weaning trials. 3. Dementia. 4. Paraplegia. 5. Right neck cystic mass, unlikely to be malignant. Continue current treatment. Patient awaiting transfer to rehab facility. Consultation Date/Type/Reason Admit Date/Time Jul 04, 2016 at 10:48 Initial Consult Date 07/06/16 Type of Consultation: Pulmonary 24 HR Interval Summary Free Text/Dictation Patient condition remains stable. Remains awake and follows minimal commands. Patient has remained hemodynamically stable. General exam; elderly male, awake currently in no distress. Exam/Review of Systems Vital Signs Vitals Vital Signs Date Time Temp Pulse Resp B/P Pulse Ox O2 Delivery O2 Flow Rate FiO2 07/09/16 11:21 97.6 66 18 105/56 95 07/09/16 11:20 30 07/09/16 06:00 Mechanical Ventilator Intake and Output 07/08/16 07/08/16 07/09/16 15:00 23:00 07:00 Intake Total 1100 ml 1026 ml Output Total 650 ml 650 ml Balance 450 ml 376 ml Exam H EENT examination; supple neck, there is a cystic mass involving the right lateral neck. Fluctuant. Nontender. Also been placed with clean insertion site. Patient multiple carious teeth. Pupils are midsize and reactive to light. Chest examination; diminished but clear breath sounds bilaterally. S1-S2 audible, no murmurs. Regular rhythm. Abdomen examination; soft, G-tube in place. Nondistended abdomen no organomegaly bowel sounds audible. Extremity examination a micro no peripheral edema. CRIMINALIST TECHNICIAN examination a micro patient is awake follows very simple commands able to move both upper extremities and has stable paraplegia. Results Result Diagram: 07/09/16 0535 07/09/16 0553 Results 24 hrs Laboratory Tests Test 07/09/16 05:35 07/09/16 05:53 Basophils # 0.0 Basophils % 0.1 Eosinophils # 0.4 Eosinophils % 4.9 Hematocrit 27.1 L Hemoglobin 8.3 L Lymphocytes # 1.8 Lymphocytes % 20.0 Mean Corpuscular Hemoglobin 29.9 Mean Corpuscular Hemoglobin Concent 30.6 L Mean Corpuscular Volume 97.5 Mean Platelet Volume 9.7 Monocytes # 1.0 H Monocytes % 11.6 H Neutrophils # 5.6 Neutrophils % 63.1 Nucleated Red Blood Cells # 0.0 Nucleated Red Blood Cells % 0.0 Platelet Count 323 Red Blood Count 2.78 L Red Cell Distribution Width 15.5 H White Blood Count 8.8 Anion Gap 13 Blood Urea Nitrogen 11 Calcium Level 7.8 L Carbon Dioxide Level 31 Chloride Level 105 Creatinine 0.52 L Glucose Level 95 Potassium Level 3.3 L Sodium Level 146 H Medications Medications Current Medications Acetaminophen (Tylenol Liquid) 650 mg Q6 PRN GTB PAIN; Start 07/04/16 at 22:30 Allopurinol (Zyloprim) 300 mg DAILY GTB Last administered on 07/09/16 09:00; Admin Dose 300 MG; Start 07/05/16 at 09:00 Amlodipine Besylate (Norvasc) 5 mg BID GTB Last administered on 07/09/16 10:17 ; Admin Dose 5 MG; Start 07/05/16 at 09:00 Benazepril HCl (Lotensin) 40 mg DAILY GTB Last administered on 07/09/16 10:14 ; Admin Dose 40 MG; Start 07/05/16 at 09:00 Carbidopa/Levodopa (Sinemet (25/ 100)) 0.5 tab BID GTB Last administered on 10:14; Admin Dose 0.5 TAB; Start 07/05/16 at 09:00 Clonidine (Catapres) 0.1 mg Q6 PRN GTB ELEVATED BLOOD PRESSURE>150; Start at 22:30 Finasteride (Proscar) 5 mg DAILY GTB Last administered on 07/09/16 10:13; Admin Dose 5 MG; Start 07/05/16 at 09:00 Gabapentin (Neurontin) 300 mg BID GTB Last administered on 07/09/16 10:16; Admin Dose 300 MG; Start 07/05/16 at 09:00 Acetaminophen/ Hydrocodone Bitart ([place] (5/325)) 1 tab Q6 PRN GTB PAIN; Start 07/04/16 at 22:30 Lansoprazole (Prevacid) 30 mg DAILY@06 GTB Last administered on 07/09/16 06:06 ; Admin Dose 30 MG; Start 07/05/16 at 06:00 Lorazepam (Ativan) 0.5 mg Q6 PRN GTB ANXIETY Last administered on 07/06/16 20: 39; Admin Dose 0.5 MG; Start 07/04/16 at 22:30 Magnesium Oxide (Mag-Ox 400) 400 mg QHS GTB Last administered on 07/08/16 22: 40; Admin Dose 400 MG; Start 07/05/16 at 21:00 Metoprolol Tartrate (Lopressor) 100 mg BID GTB Last administered on 07/09/16 10:15; Admin Dose 100 MG; Start 07/05/16 at 09:00 Multivitamins Therapeutic (Theragran) 1 tab DAILY GTB Last administered on 07/09 10:17; Admin Dose 1 TAB; Start 07/05/16 at 09:00 Ondansetron HCl (Zofran Tab) 4 mg Q6H PRN GTB NAUSEA AND/OR VOMITING; Start 07/04/16 at 22:30 Polyethylene Glycol (Miralax) 17 gm DAILY PRN GTB CONSTIPATION; Start 07/04/16 at 22:30 Eye Lubricant 1 drop 1 drop DAILY BOTH EYES Last administered on 07/09/16 10: 18; Admin Dose 1 DROP; Start 07/05/16 at 09:00 Ceftriaxone Sodium (Rocephin) 50 ml @ 100 mls/hr Q24H IVPB Last administered on 07/08/16 22:59; Admin Dose 100 MLS/HR; Start 07/04/16 at 22:30 Ascorbic Acid 500 mg 500 mg DAILY GTB Last administered on 07/09/16 10:13; Admin Dose 500 MG; Start 07/05/16 at 09:00 Potassium Chloride/Dextrose/ Sod Cl (D5-1/2ns + KCl 20 Meq) 1,000 ml @ 70 mls/ hr [id number] IV Last administered on 07/09/16 01:46; Admin Dose 70 MLS/HR; Start 07/05/16 at 11:30 Voriconazole (Vfend) 200 mg BID GTB Last administered on 07/09/16 10:13; Admin Dose 200 MG; Start 07/06/16 at 21:00 Collagenase (Santyl) 1 applic DAILY TOP Last administered on 07/09/16t 09:00; Admin Dose 1 APPLIC; Start 07/07/16 at 12:00 KARLI RILEY Jul 09, 2016 12:44
--- NOTE | 2016-07-09 13:50 | PN ---
Date/Time of Note Date/Time of Note DATE: 07/09/16 TIME: 13:37 Assessment/Plan VTE Prophylaxis VTE Prophylaxis Intervention: SCD's Lines/Catheters IV Catheter Type (from [facility]): [facility] Urinary Cath still in place: Yes Assessment/Plan Assessment/Plan 1. Urinary tract infection per UA. Continue Vfend. 2. Systemic inflammatory response syndrome secondary to urinary tract infection. Dr. Shine is following an infection disease consultation. 3. Anemia of possible gastrointestinal bleed. Stool for occult blood is positive. Dr. Amezquita is following the patient in gastroenterology consultation. Continue to monitor hemoglobin and hematocrit. Status post EGD today with notion of gastritis, continue Protonix. 4 Chronic respiratory failure. Continue patient on ventilatory support. Continue pulmonary toilet and bronchodilators. Dr. Rivera will be following the patient from pulmonology standpoint. 5. Dysphagia with G-tube. 6. Hypertension. Continue patient on Lotensin, Norvasc and metoprolol. 7. Parkinson's disease. Continue Sinemet. 8. Cervical myelopathy, status post cervical spine and upper thoracic spine surgery by Dr. Sorensen. 9. Neck cystic mass, status post conservative treatment. Dr. Sorensen, neurosurgery consultation is appreciated. No drainage is recommended at this time. 10. 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 Continue to assist patient with activities of daily living. 11. Hypernatremia continue IV fluids and free water via G-tube. 12. Hypokalemia, potassium was replaced. Continue sequential compression devices for deep venous thrombosis prophylaxis and Prevacid for peptic ulcer disease prophylaxis. Further recommendations based on clinical course. Plan of care discussed with Dr. Manriquez. Subjective 24 Hr Interval Summary Free Text/Dictation NAD, alert, afebrile has diarrhea- rectal tube intact, no new issues reported by staff. Gastrointestinal: diarrhea, other Exam/Review of Systems Vital Signs Vitals Vital Signs Date Time Temp Pulse Resp B/P Pulse Ox O2 Delivery O2 Flow Rate FiO2 07/09/16 12:19 55 07/09/16 11:21 97.6 18 105/56 95 07/09/16 11:20 30 07/09/16 06:00 Mechanical Ventilator Intake and Output 07/08/16 07/08/16 07/09/16 15:00 23:00 07:00 Intake Total 1100 ml 1026 ml Output Total 650 ml 650 ml Balance 450 ml 376 ml Exam Constitutional: alert, well developed Eyes: nl sclera ENMT: nl external ears & nose Neck: non-tender Respiratory: clear to auscultation Cardiovascular: nl pulses Gastrointestinal: non-tender, soft Musculoskeletal: nl extremities to inspection Extremities: normal pulses Results Result Diagram: 07/09/16 0535 07/09/16 0553 Results 24 hrs Laboratory Tests Test 07/09/16 05:35 07/09/16 05:53 Basophils # 0.0 Basophils % 0.1 Eosinophils # 0.4 Eosinophils % 4.9 Hematocrit 27.1 L Hemoglobin 8.3 L Lymphocytes # 1.8 Lymphocytes % 20.0 Mean Corpuscular Hemoglobin 29.9 Mean Corpuscular Hemoglobin Concent 30.6 L Mean Corpuscular Volume 97.5 Mean Platelet Volume 9.7 Monocytes # 1.0 H Monocytes % 11.6 H Neutrophils # 5.6 Neutrophils % 63.1 Nucleated Red Blood Cells # 0.0 Nucleated Red Blood Cells % 0.0 Platelet Count 323 Red Blood Count 2.78 L Red Cell Distribution Width 15.5 H White Blood Count 8.8 Anion Gap 13 Blood Urea Nitrogen 11 Calcium Level 7.8 L Carbon Dioxide Level 31 Chloride Level 105 Creatinine 0.52 L Glucose Level 95 Potassium Level 3.3 L Sodium Level 146 H Medications Medications Current Medications Acetaminophen (Tylenol Liquid) 650 mg Q6 PRN GTB PAIN; Start 07/04/16 at 22:30 Allopurinol (Zyloprim) 300 mg DAILY GTB Last administered on 07/09/16 09:00; Admin Dose 300 MG; Start 07/05/16 at 09:00 Amlodipine Besylate (Norvasc) 5 mg BID GTB Last administered on 07/09/16 10:17 ; Admin Dose 5 MG; Start 07/05/16 at 09:00 Benazepril HCl (Lotensin) 40 mg DAILY GTB Last administered on 07/09/16 10:14 ; Admin Dose 40 MG; Start 07/05/16 at 09:00 Carbidopa/Levodopa (Sinemet (25/ 100)) 0.5 tab BID GTB Last administered on 10:14; Admin Dose 0.5 TAB; Start 07/05/16 at 09:00 Clonidine (Catapres) 0.1 mg Q6 PRN GTB ELEVATED BLOOD PRESSURE>150; Start at 22:30 Finasteride (Proscar) 5 mg DAILY GTB Last administered on 07/09/16 10:13; Admin Dose 5 MG; Start 07/05/16 at 09:00 Gabapentin (Neurontin) 300 mg BID GTB Last administered on 07/09/16 10:16; Admin Dose 300 MG; Start 07/05/16 at 09:00 Acetaminophen/ Hydrocodone Bitart ([place] (5/325)) 1 tab Q6 PRN GTB PAIN; Start 07/04/16 at 22:30 Lansoprazole (Prevacid) 30 mg DAILY@06 GTB Last administered on 07/09/16 06:06 ; Admin Dose 30 MG; Start 07/05/16 at 06:00 Lorazepam (Ativan) 0.5 mg Q6 PRN GTB ANXIETY Last administered on 07/06/16 20: 39; Admin Dose 0.5 MG; Start 07/04/16 at 22:30 Magnesium Oxide (Mag-Ox 400) 400 mg QHS GTB Last administered on 07/08/16 22: 40; Admin Dose 400 MG; Start 07/05/16 at 21:00 Metoprolol Tartrate (Lopressor) 100 mg BID GTB Last administered on 07/09/16 10:15; Admin Dose 100 MG; Start 07/05/16 at 09:00 Multivitamins Therapeutic (Theragran) 1 tab DAILY GTB Last administered on 07/09 10:17; Admin Dose 1 TAB; Start 07/05/16 at 09:00 Ondansetron HCl (Zofran Tab) 4 mg Q6H PRN GTB NAUSEA AND/OR VOMITING; Start 07/04/16 at 22:30 Polyethylene Glycol (Miralax) 17 gm DAILY PRN GTB CONSTIPATION; Start 07/04/16 at 22:30 Eye Lubricant 1 drop 1 drop DAILY BOTH EYES Last administered on 07/09/16 10: 18; Admin Dose 1 DROP; Start 07/05/16 at 09:00 Ceftriaxone Sodium (Rocephin) 50 ml @ 100 mls/hr Q24H IVPB Last administered on 07/08/16 22:59; Admin Dose 100 MLS/HR; Start 07/04/16 at 22:30 Ascorbic Acid 500 mg 500 mg DAILY GTB Last administered on 07/09/16 10:13; Admin Dose 500 MG; Start 07/05/16 at 09:00 Potassium Chloride/Dextrose/ Sod Cl (D5-1/2ns + KCl 20 Meq) 1,000 ml @ 70 mls/ hr [id number] IV Last administered on 07/09/16 01:46; Admin Dose 70 MLS/HR; Start 07/05/16 at 11:30 Voriconazole (Vfend) 200 mg BID GTB Last administered on 07/09/16 10:13; Admin Dose 200 MG; Start 07/06/16 at 21:00 Collagenase (Santyl) 1 applic DAILY TOP Last administered on 07/09/16 09:00; Admin Dose 1 APPLIC; Start 07/07/16 at 12:00 GEOVANNY HARRIS Jul 09, 2016 13:47
[2016-07-09] MEDS ORDERED: POTASSIUM CHLORIDE 50 ML IVPB ONE (17:30)
[2016-07-09] MEDS ORDERED: KCL 20 MEQ in NS 100 ML IV ONE (18:00)
[2016-07-09] MEDS: LORAZEPAM 0.5 MG TAB GTB PRN (21:05)
[2016-07-09] MEDS: MAGNESIUM OXIDE 400 MG TAB GTB SCH (21:06)
[2016-07-09] MEDS: CEFTRIAXONE 1 GM/50 ML (PMX) 50 ML IVPB SCH (23:52)
[2016-07-10] VITALS (23 sets, daily range): BP systolic 122–140; BP diastolic 55–66; PULSE 57–69; RESP 14–28
[2016-07-10] MEDS: IPRATROPIUM (HFA) 12.9 GM INHALER INH SCH ×4 (01:59→19:26)
[2016-07-10] MEDS: ALBUTEROL HFA 8 GM INHALER INH SCH ×4 (01:59→19:26)
[2016-07-10] MEDS: D5W-0.45 NACL + KCL 20 MEQ 1,000 ML IV SCH ×2 (05:54→21:42)
[2016-07-10] MEDS: LANSOPRAZOLE 30 MG CAP GTB SCH (06:01)
[2016-07-10 07:25] LABS: ADD SCAN DIFF NO
[2016-07-10 07:30] LABS: BASOPHILS % 0.3 % (0.0-2.0); EOSINOPHILS # 0.4 10^3/ul (0.0-0.5); HEMOGLOBIN 9.2 g/dl (14.0-18.0); LYMPHOCYTES # 2.2 10^3/ul (0.8-2.9); LYMPHOCYTES % 22.1 % (15.0-51.0); MEAN CORPUSCULAR HEMOGLOBIN 31.2 pg (29.0-33.0); MEAN CORPUSCULAR HGB CONC 31.7 g/dl (32.0-37.0); MEAN CORPUSCULAR VOLUME 98.3 fl (82.0-101.0); MEAN PLATELET VOLUME 10.3 fl (7.4-10.4); MONOCYTE # 0.9 10^3/ul (0.3-0.9); MONOCYTES % 9.6 % (0.0-11.0); NEUTROPHIL # 6.2 10^3/ul (1.6-7.5); NEUTROPHILS % 63.6 % (39.0-77.0); PLATELET COUNT 338 10^3/UL (140-415); RED BLOOD COUNT 2.95 10^6/ul (4.70-6.10); RED CELL DISTRIBUTION WIDTH 15.4 % (11.5-14.5); WHITE BLOOD COUNT 9.8 10^3/ul (4.8-10.8)
[2016-07-10 07:52] LABS: CREATININE 0.57 mg/dl (0.61-1.24)
[2016-07-10 07:53] LABS: CALCIUM 8.1 mg/dl (8.4-10.2)
[2016-07-10] MEDS: GABAPENTIN 300 MG CAP GTB SCH ×2 (08:31→21:39)
[2016-07-10] MEDS: ARTIFICIAL TEARS 15 ML OPH BOTH EYES SCH (08:31)
[2016-07-10] MEDS: ASCORBIC ACID 500 MG TAB GTB SCH (08:31)
[2016-07-10] MEDS: FINASTERIDE 5 MG TAB GTB SCH (08:31)
[2016-07-10] MEDS: ALLOPURINOL 300 MG TAB GTB SCH (08:31)
[2016-07-10] MEDS: VORICONAZOLE 200 MG TAB GTB SCH ×2 (08:31→21:38)
[2016-07-10] MEDS: BENAZEPRIL 40 MG TAB GTB SCH (08:32)
[2016-07-10] MEDS: CARBIDOPA/LEVODOPA (25/100) TAB GTB SCH ×2 (08:32→21:39)
[2016-07-10] MEDS: METOPROLOL 100 MG TAB GTB SCH ×2 (08:32→21:42)
[2016-07-10] MEDS: AMLODIPINE 5 MG TAB GTB SCH ×2 (08:33→21:39)
[2016-07-10] MEDS: MULTIVITAMINS THERAPEUTIC TAB GTB SCH (08:33)
[2016-07-10] MEDS: COLLAGENASE 30 GM TUBE TOP SCH ×2 (09:00→15:30)
--- NOTE | 2016-07-10 14:21 | CONS ---
Date/Time of Note Date/Time of Note DATE: 07/10/16 TIME: 14:18 Assessment/Plan Assessment/Plan Additional Assessment/Plan Ventilator settings; AC of 12, tidal volume 500, PEEP of 5, 30% FiO2. Assessment recommendations; 1. Patient admitted for UTI with significant interval improvement. Currently maintained on Rocephin. 2. Chronic respiratory failure, ventilator dependent. Patient unable to be weaned off despite numerous attempts. 3. 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 4. Cystic right paratracheal mass, likely benign. 5. Dementia. Continue current treatment. Patient awaiting discharge. Consultation Date/Type/Reason Admit Date/Time Jul 04, 2016 at 10:48 Initial Consult Date 07/06/16 Type of Consultation: Pulmonary 24 HR Interval Summary Free Text/Dictation Patient condition remains stable. Opens eyes on name calling and follows very simple commands. Able to move upper extremities. General exam; elderly male, on ventilator via tracheostomy currently in no distress. Exam/Review of Systems Vital Signs Vitals Vital Signs Date Time Temp Pulse Resp B/P Pulse Ox O2 Delivery O2 Flow Rate FiO2 07/10/16 13:10 58 16 96 30 07/10/16 11:27 98.4 126/59 07/09/16 06:00 Mechanical Ventilator Intake and Output 07/09/16 07/09/16 07/10/16 15:00 23:00 07:00 Intake Total 900 ml 1180 ml Output Total 2150 ml 1650 ml Balance -1250 ml -470 ml Exam HEENT examination; supple neck, no JVD. No lymphadenopathy. Midline trachea. No thyromegaly. Tracheostomy in place with clean insertion site. Right cystic paratracheal mass appears stable in size. Joint. No erythema or tenderness. Chest examination; diminished but clear breath sound bilaterally. S1-S2 audible , no murmurs. Regular rhythm. Abdomen examination; soft, G-tube in place. Nondistended. Bowel sounds audible. Extremity examination; no peripheral edema. [employer]I [employer] CLERK examination; patient is awake follows simple commands has stable paraplegia. Results Result Diagram: 07/10/16 0600 07/10/16 0600 Results 24 hrs Laboratory Tests Test 07/10/16 06:00 Anion Gap 15 Basophils # 0.0 Basophils % 0.3 Blood Urea Nitrogen 13 Calcium Level 8.1 L Carbon Dioxide Level 27 Chloride Level 106 Creatinine 0.57 L Eosinophils # 0.4 Eosinophils % 4.0 Glucose Level 94 Hematocrit 29.0 L Hemoglobin 9.2 L Lymphocytes # 2.2 Lymphocytes % 22.1 Mean Corpuscular Hemoglobin 31.2 Mean Corpuscular Hemoglobin Concent 31.7 L Mean Corpuscular Volume 98.3 Mean Platelet Volume 10.3 Monocytes # 0.9 Monocytes % 9.6 Neutrophils # 6.2 Neutrophils % 63.6 Nucleated Red Blood Cells # 0.0 Nucleated Red Blood Cells % 0.0 Platelet Count 338 Potassium Level 4.0 Red Blood Count 2.95 L Red Cell Distribution Width 15.4 H Sodium Level 144 White Blood Count 9.8 Medications Medications Current Medications Acetaminophen (Tylenol Liquid) 650 mg Q6 PRN GTB PAIN; Start 07/04/16 at 22:30 Allopurinol (Zyloprim) 300 mg DAILY GTB Last administered on 07/10/16 08:31; Admin Dose 300 MG; Start 07/05/16 at 09:00 Amlodipine Besylate (Norvasc) 5 mg BID GTB Last administered on 07/10/16 08:33 ; Admin Dose 5 MG; Start 07/05/16 at 09:00 Benazepril HCl (Lotensin) 40 mg DAILY GTB Last administered on 07/10/16 08:32 ; Admin Dose 40 MG; Start 07/05/16 at 09:00 Carbidopa/Levodopa (Sinemet (25/ 100)) 0.5 tab BID GTB Last administered on 08:32; Admin Dose 0.5 TAB; Start 07/05/16 at 09:00 Clonidine (Catapres) 0.1 mg Q6 PRN GTB ELEVATED BLOOD PRESSURE>150; Start at 22:30 Finasteride (Proscar) 5 mg DAILY GTB Last administered on 07/10/16 08:31; Admin Dose 5 MG; Start 07/05/16 at 09:00 Gabapentin (Neurontin) 300 mg BID GTB Last administered on 07/10/16 08:31; Admin Dose 300 MG; Start 07/05/16 at 09:00 Acetaminophen/ Hydrocodone Bitart ([place] (5/325)) 1 tab Q6 PRN GTB PAIN; Start 07/04/16 at 22:30 Lansoprazole (Prevacid) 30 mg DAILY@06 GTB Last administered on 07/10/16 06:01 ; Admin Dose 30 MG; Start 07/05/16 at 06:00 Lorazepam (Ativan) 0.5 mg Q6 PRN GTB ANXIETY Last administered on 07/09/16 21: 05; Admin Dose 0.5 MG; Start 07/04/16 at 22:30 Magnesium Oxide (Mag-Ox 400) 400 mg QHS GTB Last administered on 07/09/16 21: 06; Admin Dose 400 MG; Start 07/05/16 at 21:00 Metoprolol Tartrate (Lopressor) 100 mg BID GTB Last administered on 07/10/16 08:32; Admin Dose 100 MG; Start 07/05/16 at 09:00 Multivitamins Therapeutic (Theragran) 1 tab DAILY GTB Last administered on 07/10 08:33; Admin Dose 1 TAB; Start 07/05/16 at 09:00 Ondansetron HCl (Zofran Tab) 4 mg Q6H PRN GTB NAUSEA AND/OR VOMITING; Start 07/04/16 at 22:30 Polyethylene Glycol (Miralax) 17 gm DAILY PRN GTB CONSTIPATION; Start 07/04/16 at 22:30 Eye Lubricant 1 drop 1 drop DAILY BOTH EYES Last administered on 07/10/16 08: 31; Admin Dose 1 DROP; Start 07/05/16 at 09:00 Ceftriaxone Sodium (Rocephin) 50 ml @ 100 mls/hr Q24H IVPB Last administered on 07/09/16 23:52; Admin Dose 100 MLS/HR; Start 07/04/16 at 22:30 Ascorbic Acid 500 mg 500 mg DAILY GTB Last administered on 07/10/16 08:31; Admin Dose 500 MG; Start 07/05/16 at 09:00 Potassium Chloride/Dextrose/ Sod Cl (D5-1/2ns + KCl 20 Meq) 1,000 ml @ 70 mls/ hr [id number] IV Last administered on 07/09/16 17:09; Admin Dose 70 MLS/HR; Start 07/05/16 at 11:30 Voriconazole (Vfend) 200 mg BID GTB Last administered on 07/10/16 08:31; Admin Dose 200 MG; Start 07/06/16 at 21:00 Collagenase (Santyl) 1 applic DAILY TOP Last administered on 07/09/16t 09:00; Admin Dose 1 APPLIC; Start 07/07/16 at 12:00 KARLI RILEY Jul 10, 2016 14:21
[2016-07-10] MEDS: MAGNESIUM OXIDE 400 MG TAB GTB SCH (21:39)
[2016-07-10] MEDS: CEFTRIAXONE 1 GM/50 ML (PMX) 50 ML IVPB SCH (21:45)
[2016-07-11] VITALS (24 sets, daily range): BP systolic 117–146; BP diastolic 56–89; PULSE 58–76; RESP 17–34
[2016-07-11] MEDS: ALBUTEROL HFA 8 GM INHALER INH SCH ×4 (01:19→19:44)
[2016-07-11] MEDS: IPRATROPIUM (HFA) 12.9 GM INHALER INH SCH ×4 (01:19→19:44)
[2016-07-11] MEDS: LANSOPRAZOLE 30 MG CAP GTB SCH (05:55)
[2016-07-11 07:06] LABS: ADD SCAN DIFF NO
[2016-07-11 07:15] LABS: BASOPHILS % 0.1 % (0.0-2.0); EOSINOPHILS # 0.3 10^3/ul (0.0-0.5); HEMATOCRIT 26.7 % (42.0-52.0); HEMOGLOBIN 8.4 g/dl (14.0-18.0); LYMPHOCYTES # 1.5 10^3/ul (0.8-2.9); LYMPHOCYTES % 18.6 % (15.0-51.0); MEAN CORPUSCULAR HEMOGLOBIN 30.3 pg (29.0-33.0); MEAN CORPUSCULAR HGB CONC 31.5 g/dl (32.0-37.0); MEAN CORPUSCULAR VOLUME 96.4 fl (82.0-101.0); MEAN PLATELET VOLUME 10.4 fl (7.4-10.4); MONOCYTES % 12.9 % (0.0-11.0); NEUTROPHIL # 5.1 10^3/ul (1.6-7.5); NEUTROPHILS % 63.8 % (39.0-77.0); PLATELET COUNT 320 10^3/UL (140-415); RED BLOOD COUNT 2.77 10^6/ul (4.70-6.10); RED CELL DISTRIBUTION WIDTH 15.5 % (11.5-14.5)
[2016-07-11 07:31] LABS: POTASSIUM 3.5 mmol/L (3.5-5.1)
[2016-07-11 07:33] LABS: CREATININE 0.56 mg/dl (0.61-1.24)
[2016-07-11 07:34] LABS: CALCIUM 7.7 mg/dl (8.4-10.2)
[2016-07-11] MEDS: CARBIDOPA/LEVODOPA (25/100) TAB GTB SCH ×2 (08:53→20:32)
[2016-07-11] MEDS: COLLAGENASE 30 GM TUBE TOP SCH (08:53)
[2016-07-11] MEDS: MULTIVITAMINS THERAPEUTIC TAB GTB SCH (08:53)
[2016-07-11] MEDS: ALLOPURINOL 300 MG TAB GTB SCH (08:53)
[2016-07-11] MEDS: ARTIFICIAL TEARS 15 ML OPH BOTH EYES SCH (08:53)
[2016-07-11] MEDS: FINASTERIDE 5 MG TAB GTB SCH (08:53)
[2016-07-11] MEDS: ASCORBIC ACID 500 MG TAB GTB SCH (08:53)
[2016-07-11] MEDS: VORICONAZOLE 200 MG TAB GTB SCH (08:53)
[2016-07-11] MEDS: GABAPENTIN 300 MG CAP GTB SCH ×2 (08:53→20:32)
[2016-07-11] MEDS: BENAZEPRIL 40 MG TAB GTB SCH (08:54)
[2016-07-11] MEDS: METOPROLOL 100 MG TAB GTB SCH ×2 (08:54→20:32)
[2016-07-11] MEDS: AMLODIPINE 5 MG TAB GTB SCH ×2 (08:54→20:33)
[2016-07-11] MEDS: D5W-0.45 NACL + KCL 20 MEQ 1,000 ML IV SCH ×2 (10:30→15:49)
--- NOTE | 2016-07-11 12:31 | CONS ---
Date/Time of Note Date/Time of Note DATE: 07/11/16 TIME: 12:29 Assessment/Plan Assessment/Plan Chief Complaint/Hosp Course SUBJECTIVE: No acute events overnight. No fevers. The patient is nonverbal, noncommunicative, lying comfortably in bed. MICROBIOLOGY: Urine culture on admission grew Dinorah glabrata. Blood culture grew coagulase-negative staph species. INDWELLINGS: Trach, PEG, [place]. ANTIMICROBIALS: 1. Voriconazole. 2. Rocephin. PHYSICAL EXAMINATION: GENERAL: This is a chronically ill-appearing, elderly man who is in no distress. HEENT: Head atraumatic, normocephalic. Sclerae anicteric. Buccal mucosa dry. NECK: Supple. Trach present. CHEST: Rise symmetrical. Breath sounds diminished. HEART: S1, S2. ABDOMEN: Soft, bowel sounds present. EXTREMITIES: No cyanosis. ASSESSMENT: 1. Acute on chronic respiratory failure. 2. Urinary tract infection. 3. Coagulase-negative staph bacteremia consistent with contaminant. 4. History of C-spine surgery in the past. 5. Dementia. 6. Dysphagia. 7. Diarrhea PLAN: Clinically unchanged, dc abx, send stool for C dif, start Flagyl. Continue present care, follow recommendations of consultants. Dw staff Problems: Consultation Date/Type/Reason Admit Date/Time Jul 04, 2016 at 10:48 Initial Consult Date 07/06/16 Type of Consultation: ID Exam/Review of Systems Vital Signs Vitals Vital Signs Date Time Temp Pulse Resp B/P Pulse Ox O2 Delivery O2 Flow Rate FiO2 07/11/16 12:01 98.1 55 19 118/56 98 07/11/16 11:00 30 07/09/16 06:00 Mechanical Ventilator Intake and Output 07/10/16 07/10/16 07/11/16 15:00 23:00 07:00 Intake Total 1580 ml 1390 ml Output Total 1000 ml Balance 1580 ml 390 ml Results Result Diagram: 07/11/16 0645 07/11/16 0605 Results 24 hrs Laboratory Tests Test 07/11/16 06:05 07/11/16 06:45 Anion Gap 15 Blood Urea Nitrogen 13 Calcium Level 7.7 L Carbon Dioxide Level 28 Chloride Level 104 Creatinine 0.56 L Glucose Level 106 Potassium Level 3.5 Sodium Level 143 Basophils # 0.0 Basophils % 0.1 Eosinophils # 0.3 Eosinophils % 4.0 Hematocrit 26.7 L Hemoglobin 8.4 L Lymphocytes # 1.5 Lymphocytes % 18.6 Mean Corpuscular Hemoglobin 30.3 Mean Corpuscular Hemoglobin Concent 31.5 L Mean Corpuscular Volume 96.4 Mean Platelet Volume 10.4 Monocytes # 1.0 H Monocytes % 12.9 H Neutrophils # 5.1 Neutrophils % 63.8 Nucleated Red Blood Cells # 0.0 Nucleated Red Blood Cells % 0.0 Platelet Count 320 Red Blood Count 2.77 L Red Cell Distribution Width 15.5 H White Blood Count 8.0 Medications Medications Current Medications Acetaminophen (Tylenol Liquid) 650 mg Q6 PRN GTB PAIN; Start 07/04/16 at 22:30 Allopurinol (Zyloprim) 300 mg DAILY GTB Last administered on 07/11/16 08:53; Admin Dose 300 MG; Start 07/05/16 at 09:00 Amlodipine Besylate (Norvasc) 5 mg BID GTB Last administered on 07/11/16 08:54 ; Admin Dose 5 MG; Start 07/05/16 at 09:00 Benazepril HCl (Lotensin) 40 mg DAILY GTB Last administered on 07/11/16 08:54 ; Admin Dose 40 MG; Start 07/05/16 at 09:00 Carbidopa/Levodopa (Sinemet (25/ 100)) 0.5 tab BID GTB Last administered on 08:53; Admin Dose 0.5 TAB; Start 07/05/16 at 09:00 Clonidine (Catapres) 0.1 mg Q6 PRN GTB ELEVATED BLOOD PRESSURE>150; Start at 22:30 Finasteride (Proscar) 5 mg DAILY GTB Last administered on 07/11/16 08:53; Admin Dose 5 MG; Start 07/05/16 at 09:00 Gabapentin (Neurontin) 300 mg BID GTB Last administered on 07/11/16 08:53; Admin Dose 300 MG; Start 07/05/16 at 09:00 Acetaminophen/ Hydrocodone Bitart ([place] (5/325)) 1 tab Q6 PRN GTB PAIN; Start 07/04/16 at 22:30 Lansoprazole (Prevacid) 30 mg DAILY@06 GTB Last administered on 07/11/16 05:55 ; Admin Dose 30 MG; Start 07/05/16 at 06:00 Lorazepam (Ativan) 0.5 mg Q6 PRN GTB ANXIETY Last administered on 07/09/16 21: 05; Admin Dose 0.5 MG; Start 07/04/16 at 22:30 Magnesium Oxide (Mag-Ox 400) 400 mg QHS GTB Last administered on 07/10/16 21: 39; Admin Dose 400 MG; Start 07/05/16 at 21:00 Metoprolol Tartrate (Lopressor) 100 mg BID GTB Last administered on 07/11/16 08:54; Admin Dose 100 MG; Start 07/05/16 at 09:00 Multivitamins Therapeutic (Theragran) 1 tab DAILY GTB Last administered on 07/11 08:53; Admin Dose 1 TAB; Start 07/05/16 at 09:00 Ondansetron HCl (Zofran Tab) 4 mg Q6H PRN GTB NAUSEA AND/OR VOMITING; Start 07/04/16 at 22:30 Polyethylene Glycol (Miralax) 17 gm DAILY PRN GTB CONSTIPATION; Start 07/04/16 at 22:30 Eye Lubricant (Artificial Tears Oph) 1 drop DAILY BOTH EYES Last administered on 07/11/16 08:53; Admin Dose 1 DROP; Start 07/05/16 at 09:00 Ascorbic Acid 500 mg 500 mg DAILY GTB Last administered on 07/11/16 08:53; Admin Dose 500 MG; Start 07/05/16 at 09:00 Potassium Chloride/Dextrose/ Sod Cl (D5-1/2ns + KCl 20 Meq) 1,000 ml @ 70 mls/ hr [id number] IV Last administered on 07/10/16 21:42; Admin Dose 70 MLS/HR; Start 07/05/16 at 11:30 Collagenase (Santyl) 1 applic DAILY TOP Last administered on 07/11/16 08:53; Admin Dose 1 APPLIC; Start 07/07/16 at 12:00 MARI GOODE NP Jul 11, 2016 12:30
[2016-07-11] MEDS: metroNIDAZOLE 500 MG TAB NGT SCH ×2 (14:00→21:02)
--- NOTE | 2016-07-11 14:19 | PN ---
DATE: 07/11/2016 SUBJECTIVE: Patient Isauro is stable this morning. No respiratory distress. PHYSICAL EXAMINATION: VITAL SIGNS: Temperature 98, pulse 72, blood pressure 118/56, O2 saturation 96% on 30% FIO2. NECK: Trach site clean and intact. CARDIAC: S1, S2, no added sounds or murmurs. CHEST: Diminished air entry bilaterally. ABDOMEN: Soft, nontender. No guarding or rebound. EXTREMITIES: No cyanosis, clubbing or edema. NEUROLOGIC: Generalized weakness. LABORATORY DATA: White count 8.0, hemoglobin 8.4, platelets of 320. Chemistry within normal limits . INR pending. IMPRESSION AND PLAN: 1. Recent urinary tract infection. 2. Vent dependent respiratory failure. 3. History of C-spine injury paraplegia. 4. History peritracheal mass. 5. History of dysphagia. 6. History of dementia. PLAN: 1. Continue vent support. 2. Antibiotics per primary team. 3. Tube feeding as tolerated. 4. DVT and GI prophylaxis. From a pulmonary standpoint with normal leukocytosis, normal labs and t he absence of fever, the patient should be discharged back to [facility] facility. Dictated By: INDER LOZANO/CHITRA Conf#: [id number] DID#: [id number]
--- NOTE | 2016-07-11 19:07 | PN ---
Date/Time of Note Date/Time of Note DATE: 07/11/16 TIME: 19:04 Assessment/Plan VTE Prophylaxis VTE Prophylaxis Intervention: SCD's Lines/Catheters IV Catheter Type (from [facility]): Peripheral IV Urinary Cath still in place: Yes Reason Cath still needed: urinary retention Assessment/Plan Chief Complaint/Hosp Course ASSESSMENT AND PLAN: 1. Urinary tract infection per UA. Status post treatment. 2. Systemic inflammatory response syndrome secondary to urinary tract infection. Dr. Shine is following an infection disease consultation. 3. Anemia of possible gastrointestinal bleed. Stool for occult blood is positive. Dr. Amezquita is following the patient in gastroenterology consultation. Continue to monitor hemoglobin and hematocrit. Status post EGD today with notion of gastritis, continue Protonix. 4 Chronic respiratory failure. Continue patient on ventilatory support. Continue pulmonary toilet and bronchodilators. Dr. Rivera will be following the patient from pulmonology standpoint. 5. Dysphagia with G-tube. 6. Hypertension. Continue patient on Lotensin, Norvasc and metoprolol. 7. Parkinson's disease. Continue Sinemet. 8. Cervical myelopathy, status post cervical spine and upper thoracic spine surgery by Dr. Sorensen. 9. Neck cystic mass, status post conservative treatment. Dr. Sorensen, neurosurgery consultation is appreciated. No drainage is recommended at this time. 10. 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 Continue to assist patient with activities of daily living. 11. Hypernatremia, resolved. 12. Diarrhea, stool for C. difficile is negative, patient was started on empiric Flagyl. Continue sequential compression devices for deep venous thrombosis prophylaxis and Prevacid for peptic ulcer disease prophylaxis. Further recommendations based on clinical course. Plan of care discussed with Dr. Manriquez. Problems: Subjective 24 Hr Interval Summary Free Text/Dictation Patient was dropped off in hemoglobin from 9.2-8.4, will obtain stool for OB, CBC tomorrow, patient continues to have diarrhea started on empiric Flagyl. No fever no emesis per RN. Continue to monitor electrolytes. Exam/Review of Systems Vital Signs Vitals Vital Signs Date Time Temp Pulse Resp B/P Pulse Ox O2 Delivery O2 Flow Rate FiO2 07/11/16 17:14 72 20 99 30 07/11/16 16:33 98.0 146/63 07/09/16 06:00 Mechanical Ventilator Intake and Output 07/10/16 07/10/16 07/11/16 15:00 23:00 07:00 Intake Total 1580 ml 1390 ml Output Total 1000 ml Balance 1580 ml 390 ml Exam GENERAL: Well-developed, well-nourished gentleman currently on ventilator support via tracheostomy, awake, alert. HEENT: Head is atraumatic, normocephalic. TASHIA. NECK: Supple. The patient has right lateral anterior nontender, nonerythematous cystic mass. Tracheostomy at the base of the neck with a small amount of whitish secretions. LUNGS: Scattered rhonchi bilaterally, slightly diminished at the bases. There are no wheezes, rales noted. HEART: Normal S1, S2. No murmurs, gallops, clicks, rubs noted. ABDOMEN: Protuberant, soft, nondistended, nontender. Bowel sounds present. The patient has a G-tube with intact stoma. EXTREMITIES: There is no edema, clubbing, cyanosis. Pulses equal bilaterally 2 +. SKIN: There is no obvious rash, petechiae noted. NEUROLOGIC: The patient is awake, alert, follows simple immediate commands. The patient has left-sided weakness. Results Result Diagram: 07/11/16 0645 07/11/16 0605 Results 24 hrs Laboratory Tests Test 07/11/16 06:05 07/11/16 06:45 Anion Gap 15 Blood Urea Nitrogen 13 Calcium Level 7.7 L Carbon Dioxide Level 28 Chloride Level 104 Creatinine 0.56 L Glucose Level 106 Potassium Level 3.5 Sodium Level 143 Basophils # 0.0 Basophils % 0.1 Eosinophils # 0.3 Eosinophils % 4.0 Hematocrit 26.7 L Hemoglobin 8.4 L Lymphocytes # 1.5 Lymphocytes % 18.6 Mean Corpuscular Hemoglobin 30.3 Mean Corpuscular Hemoglobin Concent 31.5 L Mean Corpuscular Volume 96.4 Mean Platelet Volume 10.4 Monocytes # 1.0 H Monocytes % 12.9 H Neutrophils # 5.1 Neutrophils % 63.8 Nucleated Red Blood Cells # 0.0 Nucleated Red Blood Cells % 0.0 Platelet Count 320 Red Blood Count 2.77 L Red Cell Distribution Width 15.5 H White Blood Count 8.0 Medications Medications Current Medications Acetaminophen (Tylenol Liquid) 650 mg Q6 PRN GTB PAIN; Start 07/04/16 at 22:30 Allopurinol (Zyloprim) 300 mg DAILY GTB Last administered on 07/11/16 08:53; Admin Dose 300 MG; Start 07/05/16 at 09:00 Amlodipine Besylate (Norvasc) 5 mg BID GTB Last administered on 07/11/16 08:54 ; Admin Dose 5 MG; Start 07/05/16 at 09:00 Benazepril HCl (Lotensin) 40 mg DAILY GTB Last administered on 07/11/16 08:54 ; Admin Dose 40 MG; Start 07/05/16 at 09:00 Carbidopa/Levodopa (Sinemet (25/ 100)) 0.5 tab BID GTB Last administered on 08:53; Admin Dose 0.5 TAB; Start 07/05/16 at 09:00 Clonidine (Catapres) 0.1 mg Q6 PRN GTB ELEVATED BLOOD PRESSURE>150; Start at 22:30 Finasteride (Proscar) 5 mg DAILY GTB Last administered on 07/11/16 08:53; Admin Dose 5 MG; Start 07/05/16 at 09:00 Gabapentin (Neurontin) 300 mg BID GTB Last administered on 07/11/16 08:53; Admin Dose 300 MG; Start 07/05/16 at 09:00 Acetaminophen/ Hydrocodone Bitart ([place] (5/325)) 1 tab Q6 PRN GTB PAIN; Start 07/04/16 at 22:30 Lansoprazole (Prevacid) 30 mg DAILY@06 GTB Last administered on 07/11/16 05:55 ; Admin Dose 30 MG; Start 07/05/16 at 06:00 Lorazepam (Ativan) 0.5 mg Q6 PRN GTB ANXIETY Last administered on 07/09/16 21: 05; Admin Dose 0.5 MG; Start 07/04/16 at 22:30 Magnesium Oxide (Mag-Ox 400) 400 mg QHS GTB Last administered on 07/10/16 21: 39; Admin Dose 400 MG; Start 07/05/16 at 21:00 Metoprolol Tartrate (Lopressor) 100 mg BID GTB Last administered on 07/11/16 08:54; Admin Dose 100 MG; Start 07/05/16 at 09:00 Multivitamins Therapeutic (Theragran) 1 tab DAILY GTB Last administered on 07/11 08:53; Admin Dose 1 TAB; Start 07/05/16 at 09:00 Ondansetron HCl (Zofran Tab) 4 mg Q6H PRN GTB NAUSEA AND/OR VOMITING; Start 07/04/16 at 22:30 Polyethylene Glycol (Miralax) 17 gm DAILY PRN GTB CONSTIPATION; Start 07/04/16 at 22:30 Eye Lubricant (Artificial Tears Oph) 1 drop DAILY BOTH EYES Last administered on 07/11/16 08:53; Admin Dose 1 DROP; Start 07/05/16 at 09:00 Ascorbic Acid 500 mg 500 mg DAILY GTB Last administered on 07/11/16 08:53; Admin Dose 500 MG; Start 07/05/16 at 09:00 Potassium Chloride/Dextrose/ Sod Cl (D5-1/2ns + KCl 20 Meq) 1,000 ml @ 70 mls/ hr [id number] IV Last administered on 07/11/16 15:49; Admin Dose 70 MLS/HR; Start 07/05/16 at 11:30 Collagenase (Santyl) 1 applic DAILY TOP Last administered on 07/11/16 08:53; Admin Dose 1 APPLIC; Start 07/07/16 at 12:00 Metronidazole (Flagyl) 500 mg Q8 NGT Last administered on 07/11/16 14:00; Admin Dose 500 MG; Start 07/11/16 at 14:00 MARCO DOE Jul 11, 2016 19:07
[2016-07-11] MEDS: MAGNESIUM OXIDE 400 MG TAB GTB SCH (20:32)
[2016-07-12] VITALS (20 sets, daily range): BP systolic 129–137; BP diastolic 60–80; PULSE 59–67; RESP 16–22
[2016-07-12] MEDS: D5W-0.45 NACL + KCL 20 MEQ 1,000 ML IV SCH ×3 (00:48→14:58)
[2016-07-12] MEDS: ALBUTEROL HFA 8 GM INHALER INH SCH ×4 (01:09→19:27)
[2016-07-12] MEDS: IPRATROPIUM (HFA) 12.9 GM INHALER INH SCH ×4 (01:09→19:27)
[2016-07-12] MEDS: metroNIDAZOLE 500 MG TAB NGT SCH ×2 (05:56→14:58)
[2016-07-12] MEDS: LANSOPRAZOLE 30 MG CAP GTB SCH (05:56)
[2016-07-12 07:32] LABS: ADD SCAN DIFF NO
[2016-07-12 07:35] LABS: BASOPHILS % 0.1 % (0.0-2.0); EOSINOPHILS # 0.4 10^3/ul (0.0-0.5); HEMATOCRIT 26.8 % (42.0-52.0); HEMOGLOBIN 8.6 g/dl (14.0-18.0); LYMPHOCYTES # 1.7 10^3/ul (0.8-2.9); LYMPHOCYTES % 23.3 % (15.0-51.0); MEAN CORPUSCULAR HEMOGLOBIN 30.6 pg (29.0-33.0); MEAN CORPUSCULAR HGB CONC 32.1 g/dl (32.0-37.0); MEAN CORPUSCULAR VOLUME 95.4 fl (82.0-101.0); MEAN PLATELET VOLUME 10.3 fl (7.4-10.4); MONOCYTE # 0.9 10^3/ul (0.3-0.9); NEUTROPHIL # 4.2 10^3/ul (1.6-7.5); PLATELET COUNT 301 10^3/UL (140-415); RED BLOOD COUNT 2.81 10^6/ul (4.70-6.10); RED CELL DISTRIBUTION WIDTH 15.2 % (11.5-14.5); WHITE BLOOD COUNT 7.3 10^3/ul (4.8-10.8)
[2016-07-12 07:46] LABS: POTASSIUM 3.8 mmol/L (3.5-5.1)
[2016-07-12 07:48] LABS: CREATININE 0.53 mg/dl (0.61-1.24)
[2016-07-12 07:49] LABS: CALCIUM 7.7 mg/dl (8.4-10.2)
[2016-07-12] MEDS: ALLOPURINOL 300 MG TAB GTB SCH (10:29)
[2016-07-12] MEDS: ARTIFICIAL TEARS 15 ML OPH BOTH EYES SCH (10:29)
[2016-07-12] MEDS: METOPROLOL 100 MG TAB GTB SCH (10:30)
[2016-07-12] MEDS: ASCORBIC ACID 500 MG TAB GTB SCH (10:30)
[2016-07-12] MEDS: MULTIVITAMINS THERAPEUTIC TAB GTB SCH (10:30)
[2016-07-12] MEDS: CARBIDOPA/LEVODOPA (25/100) TAB GTB SCH (10:30)
[2016-07-12] MEDS: BENAZEPRIL 40 MG TAB GTB SCH (10:31)
[2016-07-12] MEDS: FINASTERIDE 5 MG TAB GTB SCH (10:31)
[2016-07-12] MEDS: AMLODIPINE 5 MG TAB GTB SCH (10:31)
[2016-07-12] MEDS: COLLAGENASE 30 GM TUBE TOP SCH (10:32)
[2016-07-12] MEDS: GABAPENTIN 300 MG CAP GTB SCH (10:32)
--- NOTE | 2016-07-12 15:23 | PN ---
DATE: PULMONARY FOLLOWUP REASON FOR FOLLOWUP: Respiratory failure. The patient remains stable. No new events. PHYSICAL EXAMINATION: VITAL SIGNS: Temperature 98, pulse 65, blood pressure 138/78, O2 saturation 96% on FIO2 of 40%. NECK: Supple. No JVD or lymphadenopathy. CARDIAC: S1, S2, no added sounds or murmurs. CHEST: Diminished air entry bilaterally. ABDOMEN: Soft, nontender. No guarding or rebound. EXTREMITIES: No cyanosis, clubbing or edema. NEUROLOGIC: Generalized weakness. LABORATORY DATA: White count 7.3, hemoglobin 8.6, platelets 301. Chemistry within normal limits. IMPRESSION AND PLAN: 1. History of urinary tract infection, now resolved. 2. Chronic respiratory failure, stable. 3. History of C-spine injury with paraplegia, no changes. 4. History of peritracheal mass. 5. History of dysphagia. Continue tube feeding. The patient is stable for discharge from pulmonary standpoint. Dictated By: INDER LOZANO/CHITRA Conf#: [id number] DID#: [id number]
--- NOTE | 2016-07-12 16:31 | CONS ---
Date/Time of Note Date/Time of Note DATE: 07/12/16 TIME: 16:29 Assessment/Plan Assessment/Plan Chief Complaint/Hosp Course SUBJECTIVE: No acute events overnight. No fevers. The patient is nonverbal, noncommunicative, lying comfortably in bed. MICROBIOLOGY: Urine culture on admission grew Dinorah glabrata. Blood culture grew coagulase-negative staph species. INDWELLINGS: Trach, PEG, Hobbs. ANTIMICROBIALS: Flagyl s/p Rocephin and Vfend PHYSICAL EXAMINATION: GENERAL: This is a chronically ill-appearing, elderly man who is in no distress. HEENT: Head atraumatic, normocephalic. Sclerae anicteric. Buccal mucosa dry. NECK: Supple. Trach present. CHEST: Rise symmetrical. Breath sounds diminished. HEART: S1, S2. ABDOMEN: Soft, bowel sounds present. EXTREMITIES: No cyanosis. ASSESSMENT: 1. Acute on chronic respiratory failure. 2. Urinary tract infection. 3. Coagulase-negative staph bacteremia consistent with contaminant. 4. History of C-spine surgery in the past. 5. Dementia. 6. Dysphagia. 7. Diarrhea PLAN: Clinically unchanged, continue Flagyl. Continue present care, follow recommendations of consultants. Dw staff Problems: Consultation Date/Type/Reason Admit Date/Time Jul 04, 2016 at 10:48 Initial Consult Date 07/06/16 Type of Consultation: ID Exam/Review of Systems Vital Signs Vitals Vital Signs Date Time Temp Pulse Resp B/P Pulse Ox O2 Delivery O2 Flow Rate FiO2 07/12/16 15:16 98.9 60 20 135/61 100 07/12/16 10:20 30 07/09/16 06:00 Mechanical Ventilator Intake and Output 07/11/16 07/11/16 07/12/16 15:00 23:00 07:00 Intake Total 225 ml 1525 ml 1600 ml Output Total 1600 ml 1600 ml Balance 225 ml -75 ml 0 ml Results Result Diagram: 07/12/16 0710 07/12/16 0710 Results 24 hrs Laboratory Tests Test 07/12/16 07:10 Anion Gap 14 Basophils # 0.0 Basophils % 0.1 Blood Urea Nitrogen 12 Calcium Level 7.7 L Carbon Dioxide Level 27 Chloride Level 104 Creatinine 0.53 L Eosinophils # 0.4 Eosinophils % 5.0 Glucose Level 110 Hematocrit 26.8 L Hemoglobin 8.6 L Lymphocytes # 1.7 Lymphocytes % 23.3 Mean Corpuscular Hemoglobin 30.6 Mean Corpuscular Hemoglobin Concent 32.1 Mean Corpuscular Volume 95.4 Mean Platelet Volume 10.3 Monocytes # 0.9 Monocytes % 13.0 H Neutrophils # 4.2 Neutrophils % 58.0 Nucleated Red Blood Cells # 0.0 Nucleated Red Blood Cells % 0.0 Platelet Count 301 Potassium Level 3.8 Red Blood Count 2.81 L Red Cell Distribution Width 15.2 H Sodium Level 141 White Blood Count 7.3 Medications Medications Current Medications Acetaminophen (Tylenol Liquid) 650 mg Q6 PRN GTB PAIN; Start 07/04/16 at 22:30 Allopurinol (Zyloprim) 300 mg DAILY GTB Last administered on 07/12/16 10:29; Admin Dose 300 MG; Start 07/05/16 at 09:00 Amlodipine Besylate (Norvasc) 5 mg BID GTB Last administered on 07/12/16 10:31 ; Admin Dose 5 MG; Start 07/05/16 at 09:00 Benazepril HCl (Lotensin) 40 mg DAILY GTB Last administered on 07/12/16 10:31 ; Admin Dose 40 MG; Start 07/05/16 at 09:00 Carbidopa/Levodopa (Sinemet (25/ 100)) 0.5 tab BID GTB Last administered on 10:30; Admin Dose 0.5 TAB; Start 07/05/16 at 09:00 Clonidine (Catapres) 0.1 mg Q6 PRN GTB ELEVATED BLOOD PRESSURE>150; Start at 22:30 Finasteride (Proscar) 5 mg DAILY GTB Last administered on 07/12/16 10:31; Admin Dose 5 MG; Start 07/05/16 at 09:00 Gabapentin (Neurontin) 300 mg BID GTB Last administered on 07/12/16 10:32; Admin Dose 300 MG; Start 07/05/16 at 09:00 Acetaminophen/ Hydrocodone Bitart ([place] (5/325)) 1 tab Q6 PRN GTB PAIN; Start 07/04/16 at 22:30 Lansoprazole (Prevacid) 30 mg DAILY@06 GTB Last administered on 07/12/16 05:56 ; Admin Dose 30 MG; Start 07/05/16 at 06:00 Lorazepam (Ativan) 0.5 mg Q6 PRN GTB ANXIETY Last administered on 07/09/16 21: 05; Admin Dose 0.5 MG; Start 07/04/16 at 22:30 Magnesium Oxide (Mag-Ox 400) 400 mg QHS GTB Last administered on 07/11/16 20: 32; Admin Dose 400 MG; Start 07/05/16 at 21:00 Metoprolol Tartrate (Lopressor) 100 mg BID GTB Last administered on 07/12/16 10:30; Admin Dose 100 MG; Start 07/05/16 at 09:00 Multivitamins Therapeutic (Theragran) 1 tab DAILY GTB Last administered on 07/12 10:30; Admin Dose 1 TAB; Start 07/05/16 at 09:00 Ondansetron HCl (Zofran Tab) 4 mg Q6H PRN GTB NAUSEA AND/OR VOMITING; Start 07/04/16 at 22:30 Polyethylene Glycol (Miralax) 17 gm DAILY PRN GTB CONSTIPATION; Start 07/04/16 at 22:30 Eye Lubricant (Artificial Tears Oph) 1 drop DAILY BOTH EYES Last administered on 07/12/16 10:29; Admin Dose 1 DROP; Start 07/05/16 at 09:00 Ascorbic Acid 500 mg 500 mg DAILY GTB Last administered on 07/12/16 10:30; Admin Dose 500 MG; Start 07/05/16 at 09:00 Potassium Chloride/Dextrose/ Sod Cl (D5-1/2ns + KCl 20 Meq) 1,000 ml @ 70 mls/ hr [id number] IV Last administered on 07/12/16 06:02; Admin Dose 70 MLS/HR; Start 07/05/16 at 11:30 Collagenase (Santyl) 1 applic DAILY TOP Last administered on 07/12/16 10:32; Admin Dose 1 APPLIC; Start 07/07/16 at 12:00 Metronidazole (Flagyl) 500 mg Q8 NGT Last administered on 07/12/16 14:58; Admin Dose 500 MG; Start 07/11/16 at 14:00 MARI GOODE NP Jul 12, 2016 16:31
--- NOTE | 2016-07-12 19:32 | DS ---
DATE OF ADMISSION: 07/04/2016 DATE OF DISCHARGE: 07/12/2016 FINAL DIAGNOSES: 1. Urinary tract infection per urinalysis, status post treatment. 2. Systemic inflammatory response syndrome secondary to urinary tract infection. 3. Anemia of possible gastrointestinal bleed status post EGD. 4. Gastritis per EGD. 5. Chronic respiratory failure, ventilator dependent. 6. Dysphagia with gastrostomy tube. 7. Hypertension. 8. Parkinson disease. 9. Cervical myelopathy, status post cervical spine and upper thoracic spine surgery. 10. Cystic mass. 11. quadriparesis secondary to cervical and thoracic myelopathy 12. Hypernatremia, resolved. 13. Diarrhea. Stool for Clostridium difficile is negative. BRIEF HISTORY: The patient is an 81-year-old gentleman with a history of cervical and thoracic stenosis leading to quadriparesis, underwent surgery by Dr. Sorensen at [facility] and underwent cervical laminectomy. Patient developed respiratory failure postoperatively, could not be weaned off and patient underwent a tracheostomy and G-tube placement. Patient was successfully weaned off trach at [facility] and remained on trach collar and patient [facility]. On routine labs the patient noted a hemoglobin around 7 and patient was sent for further evaluation and management to [facility]. The patient's urinalysis was also noted and consistent with urinary tract infection. The patient also has leukocytosis and patient is admitted for further evaluation and management. HOSPITAL COURSE: The patient's blood culture came positive for coagulase negative staph, 1 bottle, and urine culture was positive for Dinorah glabrata. The patient was evaluated by Dr. Shine in infectious disease consultation. The patient was started on broad-spectrum antibiotics initially and then later on antifungals. The patient was also evaluated by Dr. Amezquita in gastroenterology consultation. The patient underwent EGD with notion of gastritis and patient is continued on Protonix. Patient also had a cystic mass which was evaluated earlier by ENT at [facility] with no interventions recommended. Dr. Sorensen was asked to see patient in neurology consultation for neck cystic mass. No drainage was recommended at that time because the risks of infection outweigh the benefits. The patient was followed by Dr. Rivera in pulmonology consultation. The patient's gastric biopsy was negative for malignancy and negative for any Helicobacter organisms. The patient was continued on Protonix. The patient, although had diarrhea and was started on empiric Flagyl, Clostridium difficile colitis was negative. The patient's condition improved. The patient's leukocytosis resolved, and the patient also received a blood transfusion on admission of 1 unit of packed red blood cells. Hemoglobin was closely monitored and was relatively stable. The patient will be discharged to [facility] facility. CONDITION ON DISCHARGE: Hemodynamically stable. ACTIVITY: As patient tolerates. DIET: Continue current G-tube feeding. DISCHARGE MEDICATIONS: 1. Tylenol q. 6 hours p.r.n. for fever or pain. 2. Albuterol q. 6 hours p.r.n. 3. Allopurinol. 4. Norvasc. 5. Ascorbic acid. 6. Artificial Tears. 7. Benazepril 40 mg G-tube daily. 8. Clonidine 0. mg G-tube q. 6 hours p.r.n. 9. Santyl topical. 10. Finasteride. 11. Gabapentin. 12. [place] p.r.n. for pain. 13. Prevacid 30 mg G-tube daily. 14. Sinemet p.r.n. 15. Ativan p.r.n. 16. Magnesium oxide G-tube daily at bedtime. 17. Metoprolol 100 mg G-tube b.i.d. 18. Flagyl 500 mg NG tube q. 8 hours for 7 more days. 19. Multivitamin. 20. Zofran p.r.n. 21. MiraLax p.r.n. 22. Ferrous sulfate 300 mg G-tube daily. 23. Protein supplement. Interdisciplinary of care was established for this patient. Plan of care was discussed with Dr. Gonzalez. Dictated By: MARCO DOE PROPERTY ANALYST for CYNTHIA GONZALEZ MD SR/NTS Conf#: [id number] DID#: [id number] MTDD
== END 2016-07-12 20:40 | DRG 727 ==
LOC: E/R 08:59 → ICU 10:48 → TEL 07-06 02:34
PROVIDERS: ADMIT Internal Medicine; ATTEND Internal Medicine
PROC: 5A1955Z Respiratory Ventilation, Greater than 96 Consecutive Hours (ICD-10-PCS; 2016-07-04)
PROC: 0DJ08ZZ Inspection of Upper Intestinal Tract, Via Natural or Artificial Opening Endoscopic (ICD-10-PCS; principal; 2016-07-07)
DX: B37.49 Other urogenital candidiasis (principal); L89.153 Pressure ulcer of sacral region, stage 3; Z99.11 Dependence on respirator [ventilator] status; J44.9 Chronic obstructive pulmonary disease, unspecified; N17.9 Acute kidney failure, unspecified; E87.0 Hyperosmolality and hypernatremia; J96.10 Chronic respiratory failure, unspecified whether with hypoxia or hypercapnia; G81.94 Hemiplegia, unspecified affecting left nondominant side; D64.9 Anemia, unspecified; F03.90 Unspecified dementia, unspecified severity, without behavioral disturbance, psychotic disturbance, mood disturbance, and anxiety; I10 Essential (primary) hypertension; G20 Parkinson's disease; Z93.0 Tracheostomy status; Z93.1 Gastrostomy status; E87.6 Hypokalemia; K29.70 Gastritis, unspecified, without bleeding; K21.0 Gastro-esophageal reflux disease with esophagitis; R19.7 Diarrhea, unspecified; R22.1 Localized swelling, mass and lump, neck
CPT/HCPCS: 36415; 36430; 70491; 71010; 80048; 80053; 81001; 81003; 82270; 82607; 82728; 82746; 83540; 83605; 83735; 84443; 84484; 85025; 85045; 85610; 85730; 86644; 86850; 86900; 86901; 86920; 87040; 87075; 87081; 87086; 88305; 88312; 93005; 94002; 94003; 94640; 96365; 96366; 96375; 96376; 97110; 97162; 97530; J0696; J1580; J3480; J7030; P9016; Q9967

== ENCOUNTER 2016-08-15 22:56 | Emergency (ER) | payer MEDICARE, OTHER ==
[~2016-08-15] VITALS: Wt 90.0 kg
[~2016-08-15 22:56] MED LIST changes: +ACET325S GTB; +ALLO300T2 GTB; +AMLO5TAB4 GTB; +ASCO500S2 GTB; +BENA40TA41 GTB; +CLON-379 GTB; +DOCU-159 GTB; +FINA5TAB4 GTB; +GABA300C16 GTB; +HYDR-3672 GTB; +HYDR-906 GTB; +IPRA3AMP INHALATION; +LANS30CA GTB; +LEVA1.25 INHALATION; +LEVO500T72 PO; +LORA-441 GTB; +MAGN400T27 GTB; +METO-407 GTB; +MULTI GTB; -NAPR275T83 PO; +ONDA4TAB8 GTB; +POLY15DR25 OP; +POLY17PO6 GTB; +PROT946L GTB; +SIN25100 GTB; +UDFER GTB
--- NOTE | 2016-08-15 23:01 | ERD ---
ER Documentation Chief Complaint Date/Time DATE: 08/15/16 TIME: 23:00 Chief Complaint HPI This is an 81-year-old male sent in for G-tube replacement. G-tube pulled out. Hobbs catheter placed to keep stoma open. No fevers no chills. No other current complaints. History is limited secondary patient's baseline dementia. Patient is a tracheostomy patient. ROS All systems reviewed and are negative except as per history of present illness. Medications Home Meds Reported Medications Ferrous Sulfate (Ferrous Sulfate) 300 Mg/5 Ml Liquid, 330 MG GTB BID 07/04/16 Levalbuterol Hcl* (Levalbuterol Hcl*) 1.25 Mg/0.5 Ml Vial.neb, 1.25 MG INHALATION Q6 Y for bronchospasm, VIAL 07/04/16 Multivitamins* (Theragran*) 1 Tab Tab, 1 TAB GTB DAILY, TAB 07/04/16 Ondansetron Hcl* (Zofran*) 4 Mg Tablet, 4 MG GTB Q6H Y for NAUSEA AND OR VOMITING, TAB 07/04/16 Finasteride* (Finasteride*) 5 Mg Tablet, 5 MG GTB DAILY, TAB 07/04/16 Protein Supplement (Promod) 946 Ml Liquid, 30 ML GTB DAILY 07/04/16 Lansoprazole* (Lansoprazole*) 30 Mg Capsule.dr, 30 MG GTB DAILY, CAP 07/04/16 Hydrocodone/Acetaminophen ([place] 5-325 Tablet) 1 Each Tablet, 1 EACH GTB prn, TAB everyday dhift for pain management prior to wound care 07/04/16 Hydrocodone/Acetaminophen ([place] 5-325 Tablet) 1 Each Tablet, 1 EACH GTB Q6 Y for PAIN, TAB 07/04/16 Polyethylene Glycol* (Miralax*) 17 Gm Powd.pack, 17 GM GTB DAILY Y for CONSTIPATION, #30 PACKET 07/04/16 Metoprolol Tartrate* (Lopressor*) 100 Mg Tablet, 100 MG GTB BID, #60 TAB hold if less than 110 or HR 60 07/04/16 Magnesium Oxide* (Mag-Oxide*) 400 Mg Tablet, 400 MG GTB QHS, TAB 07/04/16 Levofloxacin* (Levaquin*) 500 Mg Tablet, 500 MG PO DAILY, TAB started 06-30-16 stop 07-08-16 07/04/16 Hydralazine Hcl* (Hydralazine Hcl*) 50 Mg Tab, 50 MG GTB Q8 Y for ELEVATED BLOOD PRESSURE, #90 TAB HOLD FOR SBP LESS THAN 115mmHg 07/04/16 Gabapentin* (Gabapentin*) 300 Mg Capsule, 300 MG GTB BID, #60 CAP 07/04/16 Ipratropium-Albuterol (Ipratropium-Albuterol) 0.5-3 Mg/3 Ml Ampul.neb, 3 ML INHALATION Q2H Y for SHORTNESS OF BREATH, #30 VIAL 07/04/16 Ipratropium-Albuterol (Ipratropium-Albuterol) 0.5-3 Mg/3 Ml Ampul.neb, 3 ML INHALATION Q6 Y for BRONCHOSPASM, #30 VIAL 07/04/16 Docusate Sodium* (Docusate Sodium*) 100 Mg Capsule, 100 MG GTB BID, #60 CAP 07/04/16 Clonidine Hcl* (Clonidine Hcl*) 0.1 Mg Tab, 0.1 MG GTB Q6 Y for ELEVATED BLOOD PRESSURE, TAB 07/04/16 Carbidopa-Levodopa* (Sinemet*) 25-100 Mg Tab, 0.5 TAB GTB BID, TAB 07/04/16 Benazepril Hcl* (Benazepril Hcl*) 40 Mg Tablet, 40 MG GTB DAILY, #30 TAB HOLD IF LESS THAN 110 OR HR LESS THAN 60 07/04/16 Lorazepam* (Ativan*) 0.5 Mg Tablet, 0.5 MG GTB Q6 Y for ANXIETY, #30 TAB 07/04/16 Ascorbic Acid* (Ascorbic Acid*) 500 Mg/5 Ml Syrup, 500 MG GTB DAILY, #150 ML 07/04/16 Polyvinyl Alcohol (Tears Again) 15 Ml Drops, 1 DRP OP DAILY Y for DRY EYES, BOTTLE 07/04/16 Amlodipine Besylate* (Norvasc*) 5 Mg Tablet, 5 MG GTB BID, TAB 07/04/16 Allopurinol* (Allopurinol*) 300 Mg Tablet, 300 MG GTB DAILY, TAB 07/04/16 Acetaminophen* (Acetaminophen* Susp) 325 Mg/10.15 Ml Solution, 650 MG GTB Q6 Y for PAIN, ML 07/04/16 Allergies Allergies: Coded Allergies: Penicillins (Verified Allergy, Intermediate, Rash, 07/12/16) egg (Verified Allergy, Mild, Rash, 07/12/16) PMhx/Soc History of Surgery: No Anesthesia Reaction: No Hx Neurological Disorder: No Hx Respiratory Disorders: No Hx Cardiac Disorders: Yes (HTN) Hx Psychiatric Problems: No Hx Miscellaneous Medical Probl: Yes Hx Alcohol Use: No Hx Substance Use: No Hx Tobacco Use: No Physical Exam Physical Exam Const: [] Head: Atraumatic Eyes: Normal Conjunctiva ENT: Tracheostomy site is clean dry and intact Neck: Full range of motion..~ No meningismus. Resp: Clear to auscultation bilaterally Cardio: Regular rate and rhythm, no murmurs Abd: G-tube site is clean dry and intact with no signs of cellulitis. Skin: No petechiae or rashes Back: No midline or flank tenderness Ext: No cyanosis, or edema Neur: Awake and alert Psych: Normal Mood and Affect Procedures/MDM Gastrostomy tube replaced. Patient discharged back to [facility] facility. Position confirmed by auscultation. Departure Diagnosis: Primary Impression: Gastrostomy malfunction Condition: Stable Patient Instructions: Gastrostromy or Gastro-jejunum Tube: KAT Rao Aug 15, 2016 23:01
== END 2016-08-15 23:00 | disposition home or self-care (01) ==
LOC: E/R 22:56
DX: K94.23 Gastrostomy malfunction (principal); I10 Essential (primary) hypertension; R40.2142 Coma scale, eyes open, spontaneous, at arrival to emergency department; R40.2362 Coma scale, best motor response, obeys commands, at arrival to emergency department; R40.2242 Coma scale, best verbal response, confused conversation, at arrival to emergency department

== ENCOUNTER 2016-08-25 05:10 | Inpatient (IN) | payer MEDICARE, OTHER ==
[~2016-08-25] VITALS: Ht 170.2 cm; Wt 65.0 kg
[2016-08-25] MEDS ORDERED: SODIUM CHLORIDE 0.9% 1L BAG IV* STA (05:15)
[2016-08-25] MEDS ORDERED: AZTREONAM 1 GM/NS (PMX) 50 ML IVPB ONE (05:30)
[2016-08-25] MEDS ORDERED: VANCOMYCIN 1 GM (PMX) 250 ML IVPB ONE (05:30)
[2016-08-25 05:55] LABS: ADD UMIC YES; URINE BILIRUBIN (Dip) NEGATIVE (NEGATIVE); URINE BLOOD (Dip) 2+ (NEGATIVE); URINE COLOR YELLOW (YELLOW); URINE GLUCOSE (Dip) NEGATIVE (NEGATIVE); URINE KETONES (Dip) NEGATIVE (NEGATIVE); URINE LEUKOCYTE ESTERASE (Dip) 3+ (NEGATIVE); URINE NITRITE (Dip) NEGATIVE (NEGATIVE); URINE TOTAL PROTEIN (Dip) 1+ (NEGATIVE); URINE UROBILINOGEN (Dip) 0.2 E.U./dL (0.1-1.0)
[2016-08-25 06:11] LABS: AADO2 Arterial 91.3 mmHg (7.0-24.0); Allen Test ACCEPTAB; Arterial COHb 0.3 % (0.0-3.0); Arterial Fraction of Oxyhgb 94.5 % (93.0-99.0); Arterial HCO3 33.4 mmol/L (22.0-26.0); Arterial MetHb 0.4 % (0.0-1.5); Arterial Total Hemglobin 9.1 g/dl (12.0-18.0); MODE VENT - AC
[2016-08-25 06:18] LABS: ADD SCAN DIFF NO
--- NOTE | 2016-08-25 06:22 | RADRPT ---
PROCEDURE: XR Chest. CLINICAL INDICATION: Sepsis TECHNIQUE: Portable single view of the chest COMPARISON: 07/04 FINDINGS: Tracheostomy tube remains in place. Hardware of the cervical and thoracic spine again seen. Reduce d lung volumes are again noted. There is now slightly increased alveolar opacity at the lung bases which may be due to atelectasis or developing infiltrate. Pulmonary vascular congestion is similar to prior. Aortic calcification. IMPRESSION: Possible developing basilar infiltrates. RPTAT: [facility]BE Physician Yeni Date Time Electronically viewed and signed by Judie Glasgow Physician on 08/25/2016 06:22 LE/
[2016-08-25 06:31] LABS: INR 1.22; PROTIME 15.5 Sec (12.2-14.2); PT RATIO 1.2
[2016-08-25 06:32] LABS: ALBUMIN 2.8 g/dl (3.3-4.9); PARTIAL THROMBOPLASTIN TIME 31.6 Sec (25.0-35.0)
[2016-08-25 06:33] LABS: ABNORMAL IP MESSAGE 1; HEMOGLOBIN 7.6 g/dl (14.0-18.0); MEAN CORPUSCULAR HEMOGLOBIN 29.9 pg (29.0-33.0); MEAN CORPUSCULAR HGB CONC 31.7 g/dl (32.0-37.0); MEAN CORPUSCULAR VOLUME 94.5 fl (82.0-101.0); MEAN PLATELET VOLUME 11.3 fl (7.4-10.4); PLATELET COUNT 272 10^3/UL (140-415); POTASSIUM 4.3 mmol/L (3.5-5.1); RED BLOOD COUNT 2.54 10^6/ul (4.70-6.10); RED CELL DISTRIBUTION WIDTH 14.7 % (11.5-14.5); WHITE BLOOD COUNT 30.7 10^3/ul (4.8-10.8)
[2016-08-25 06:35] LABS: ALBUMIN/GLOBULIN RATIO 0.63; BILIRUBIN,INDIRECT 0.2 mg/dl (0-1.1); BILIRUBIN,TOTAL 0.2 mg/dl (0.2-1.3); CREATININE 0.91 mg/dl (0.61-1.24); TOTAL PROTEIN 7.2 g/dl (6.1-8.1)
[2016-08-25 06:36] LABS: CALCIUM 8.2 mg/dl (8.4-10.2)
[2016-08-25 06:47] LABS: TROPONIN-I 0.014 ng/ml (0.00-0.12)
[2016-08-25] MEDS ORDERED: SOD CHLORIDE 0.9% 1,000 ML IV SCH (06:52)
[2016-08-25] MEDS ORDERED: ACETAMINOPHEN 325 MG TAB PO PRN (07:00)
[2016-08-25] MEDS ORDERED: ONDANSETRON 4 MG INJ IV PRN (07:00)
--- NOTE | 2016-08-25 07:11 | ERA ---
ER Documentation Chief Complaint Date/Time DATE: 08/25/16 TIME: 07:06 Chief Complaint from Stefany rowe for fever 101.6, given tylenol @ 2230. Vented. HPI This is an 81-year-old male who presents to the emergency room by ambulance from his nursing facility for evaluation of a fever. According to residential notes this patient did have a fever of 101.6F and was given Tylenol at approximately 3:30 AM. This patient was sent to the emergency room for further evaluation. The patient is unable to give a history secondary to his clinical condition at this time. ROS All systems reviewed and are negative except as per history of present illness. Medications Home Meds Reported Medications Ferrous Sulfate (Ferrous Sulfate) 300 Mg/5 Ml Liquid, 330 MG GTB BID 07/04/16 Levalbuterol Hcl* (Levalbuterol Hcl*) 1.25 Mg/0.5 Ml Vial.neb, 1.25 MG INHALATION Q6 Y for bronchospasm, VIAL 07/04/16 Multivitamins* (Theragran*) 1 Tab Tab, 1 TAB GTB DAILY, TAB 07/04/16 Ondansetron Hcl* (Zofran*) 4 Mg Tablet, 4 MG GTB Q6H Y for NAUSEA AND OR VOMITING, TAB 07/04/16 Finasteride* (Finasteride*) 5 Mg Tablet, 5 MG GTB DAILY, TAB 07/04/16 Protein Supplement (Promod) 946 Ml Liquid, 30 ML GTB DAILY 07/04/16 Lansoprazole* (Lansoprazole*) 30 Mg Capsule.dr, 30 MG GTB DAILY, CAP 07/04/16 Hydrocodone/Acetaminophen ([place] 5-325 Tablet) 1 Each Tablet, 1 EACH GTB prn, TAB everyday dhift for pain management prior to wound care 07/04/16 Hydrocodone/Acetaminophen ([place] 5-325 Tablet) 1 Each Tablet, 1 EACH GTB Q6 Y for PAIN, TAB 07/04/16 Polyethylene Glycol* (Miralax*) 17 Gm Powd.pack, 17 GM GTB DAILY Y for CONSTIPATION, #30 PACKET 07/04/16 Metoprolol Tartrate* (Lopressor*) 100 Mg Tablet, 100 MG GTB BID, #60 TAB hold if less than 110 or HR 60 07/04/16 Magnesium Oxide* (Mag-Oxide*) 400 Mg Tablet, 400 MG GTB QHS, TAB 07/04/16 Levofloxacin* (Levaquin*) 500 Mg Tablet, 500 MG PO DAILY, TAB started 06-30-16 stop 07-08-16 07/04/16 Hydralazine Hcl* (Hydralazine Hcl*) 50 Mg Tab, 50 MG GTB Q8 Y for ELEVATED BLOOD PRESSURE, #90 TAB HOLD FOR SBP LESS THAN 115mmHg 07/04/16 Gabapentin* (Gabapentin*) 300 Mg Capsule, 300 MG GTB BID, #60 CAP 07/04/16 Ipratropium-Albuterol (Ipratropium-Albuterol) 0.5-3 Mg/3 Ml Ampul.neb, 3 ML INHALATION Q2H Y for SHORTNESS OF BREATH, #30 VIAL 07/04/16 Ipratropium-Albuterol (Ipratropium-Albuterol) 0.5-3 Mg/3 Ml Ampul.neb, 3 ML INHALATION Q6 Y for BRONCHOSPASM, #30 VIAL 07/04/16 Docusate Sodium* (Docusate Sodium*) 100 Mg Capsule, 100 MG GTB BID, #60 CAP 07/04/16 Clonidine Hcl* (Clonidine Hcl*) 0.1 Mg Tab, 0.1 MG GTB Q6 Y for ELEVATED BLOOD PRESSURE, TAB 07/04/16 Carbidopa-Levodopa* (Sinemet*) 25-100 Mg Tab, 0.5 TAB GTB BID, TAB 07/04/16 Benazepril Hcl* (Benazepril Hcl*) 40 Mg Tablet, 40 MG GTB DAILY, #30 TAB HOLD IF LESS THAN 110 OR HR LESS THAN 60 07/04/16 Lorazepam* (Ativan*) 0.5 Mg Tablet, 0.5 MG GTB Q6 Y for ANXIETY, #30 TAB 07/04/16 Ascorbic Acid* (Ascorbic Acid*) 500 Mg/5 Ml Syrup, 500 MG GTB DAILY, #150 ML 07/04/16 Polyvinyl Alcohol (Tears Again) 15 Ml Drops, 1 DRP OP DAILY Y for DRY EYES, BOTTLE 07/04/16 Amlodipine Besylate* (Norvasc*) 5 Mg Tablet, 5 MG GTB BID, TAB 07/04/16 Allopurinol* (Allopurinol*) 300 Mg Tablet, 300 MG GTB DAILY, TAB 07/04/16 Acetaminophen* (Acetaminophen* Susp) 325 Mg/10.15 Ml Solution, 650 MG GTB Q6 Y for PAIN, ML 07/04/16 Allergies Allergies: Coded Allergies: Penicillins (Verified Allergy, Intermediate, Rash, 07/12/16) egg (Verified Allergy, Mild, Rash, 07/12/16) PMhx/Soc History of Surgery: Yes Anesthesia Reaction: No Hx Neurological Disorder: Yes (Parkinson's, Epilepsy) Hx Respiratory Disorders: Yes (trach, vent dependent Resp Failure) Hx Cardiac Disorders: Yes (HTN, CHF) Hx Psychiatric Problems: No Hx Miscellaneous Medical Probl: Yes (GOUT, Cervical Stenosis, BPH, Sacral and heel pressure ulcers, GERD) Hx Alcohol Use: No Hx Substance Use: No Hx Tobacco Use: No Smoking Status: Unknown if ever smoked Physical Exam Vitals Vital Signs Date Time Temp Pulse Resp B/P Pulse Ox O2 Delivery O2 Flow Rate FiO2 08/25/16 05:25 78 18 100 30 08/25/16 05:14 98.9 75 18 112/56 100 Physical Exam INITIAL VITAL SIGNS: Reviewed by me GENERAL: The patient is frail-appearing elderly gentleman, no acute distress HEENT: Pupils equal, round, and reactive to light. EOMI. There is no scleral icterus. NECK: Tracheostomy in place with mild green discharge, vent dependent, C-spine is soft and supple, there is no meningismus. There is no cervical lymphadenopathy. LUNGS: Coarse breath sounds bilaterally. There are no rales, wheezes or rhonchi. HEART: Regular rate and rhythm, no murmurs, clicks, rubs or gallops. ABDOMEN: PEG tube in place, soft, non-tender, non-distended. There are bowel sounds in all four quadrants. No rebound or guarding. EXTREMITIES: There is no peripheral cyanosis or edema. No focal swelling or erythema. NEUROLOGICAL: The patient moves all four extremities with 5/5 strength. Alert and oriented to person SKIN: There is no apparent rash or petechiae. HEME/LYMPHATIC: There is no evidence of excessive bruising or lymphedema. PSYCHIATRIC: The patient does not appear anxious or depressed. Result Diagram: 08/25/16 0604 08/25/16 0604 Results 24 hrs Laboratory Tests Test 08/25/16 05:15 08/25/16 06:04 Blood Gas Specimen Source Blood arterial Arterial Blood Date Drawn 08/25/2016 6:05:42 AM Arterial Blood pH (Temp corrected) 7.487 Arterial Blood pCO2 (Temp correct) 45.1mmhg Arterial Blood pO2 (Temp corrected) 69.6mmHG Arterial Blood HCO3 33.4mmol/L Arterial Blood Base Excess 9.0mmol/L Arterial Blood Oxygen Saturation 95.2mmHG Sha Test ACCEPTAB Arterial Blood Gas Puncture Site Right Radial Arterial Blood Carboxyhemoglobin 0.3% Arterial Blood Methemoglobin 0.4% Blood Gas A-a O2 Differential 91.3mmHg Oxyhemoglobin Percent 94.5% Total Hemoglobin 9.1g/dl Blood Gas Temperature 37.0C Blood Gas Respiration Rate 12.0 Blood Gas Actual Respiration Rate 20 Blood Gas Modality VENT - AC FiO2 30.0% Blood Gas Tidal Volume 500.0mL Blood Gas Low PEEP Setting 5.0cmH2O Blood Gas Notified Whom MG Blood Gas Notified Time 08/25/2016 6:11:22 AM White Blood Count 30.710^3/ul Red Blood Count 2.5410^6/ul Hemoglobin 7.6g/dl Hematocrit 24.0% Mean Corpuscular Volume 94.5fl Mean Corpuscular Hemoglobin 29.9pg Mean Corpuscular Hemoglobin Concent 31.7g/dl Red Cell Distribution Width 14.7% Platelet Count 23113^3/UL Mean Platelet Volume 11.3fl Prothrombin Time 15.5Sec Prothrombin Time Ratio 1.2 INR International Normalized Ratio 1.22 Activated Partial Thromboplast Time 31.6Sec Sodium Level 132mmol/L Potassium Level 4.3mmol/L Chloride Level 89mmol/L Carbon Dioxide Level 32mmol/L Anion Gap 15 Blood Urea Nitrogen 63mg/dl Creatinine 0.91mg/dl Glucose Level 152mg/dl Lactic Acid Level 2.2mmol/L Calcium Level 8.2mg/dl Total Bilirubin 0.2mg/dl Direct Bilirubin 0.00mg/dl Indirect Bilirubin 0.2mg/dl Aspartate Amino Transf (AST/SGOT) 25IU/L Alanine Aminotransferase (ALT/SGPT) 29IU/L Alkaline Phosphatase 95IU/L Troponin I 0.014ng/ml Total Protein 7.2g/dl Albumin 2.8g/dl Globulin 4.40g/dl Albumin/Globulin Ratio 0.63 Current Medications Medications (Trade) Dose Ordered Sig/Tonny Route PRN Reason Start Time Stop Time Status Last Admin Dose Admin Sodium Chloride 2020 ml 2,020 ml BOLUS OVER 2 HOURS STAT IV* 08/25/16 05:15 08/25/16 05:17 DC 08/25/16 06:46 Vancomycin HCl 250 ml @ 125 mls/hr ONCE ONCE IVPB 08/25/16 05:30 08/25/16 07:29 08/25/16 06:46 Aztreonam 50 ml @ 100 mls/hr ONCE ONCE IVPB 08/25/16 05:30 08/25/16 05:59 DC 08/25/16 06:50 Sodium Chloride (NS) 1,000 ml @ 80 mls/hr [id number] IV 08/25/16 06:52 08/25/16 19:21 Ondansetron HCl (Zofran Inj) 4 mg ER BRIDGE PRN IV NAUSEA AND/OR VOMITING 08/25/16 07:00 08/26/16 06:59 Acetaminophen (Tylenol Tab) 650 mg ER BRIDGE PRN PO MILD PAIN/FEVER 08/25/16 07:00 08/26/16 06:59 Procedures/MDM EKG: Rate/Rhythm: [Normal Sinus Rhythm] QRS, ST, T-waves: [No changes consistent w/ acute ischemia] Impression: [No evidence of ischemia or arrhythmia] Chest X-ray 1V Interpreted by me: Soft Tissue: Bibasilar infiltrates Bones: No acute abnormalities Mediastinum/Cardiac Silhouette/Lungs: [No acute abnormalities] This 81-year-old male presents to the emergency room for evaluation of a fever. When I evaluated this patient he did have coarse breath sounds bilaterally and mild green discharge from his tracheostomy site. This patient underwent a septic workup. X-ray does reveal bibasal infiltrates. This patient does have a white blood cell count greater than 30,000. Lactic acid is 2.2. This patient was given 30 cc/kg of IV normal saline and was started on vancomycin and aztreonam after blood and urine cultures were obtained. This patient does meet sepsis criteria at this time. There is no need for vasopressors as this patient's mean arterial pressures greater than 65. This patient also found to have urinary tract infection. No signs of septic shock at this time. This patient will be admitted on the telemetry floor under the care of Dr. sandoval for continued IV antibiotics, and fluid resuscitation. Critical Care: Excluding all billable procedures Time: 33 minutes Treatments/Evaluations: Close monitoring and treatment of unstable vital signs, cardiorespiratory, and neurologic status, while maintaining tight balance of fluid, respiratory, and cardiac interventions. Departure Diagnosis: Primary Impression: Sepsis Additional Impressions: Bilateral pneumonia Acute cystitis Normocytic anemia Prerenal azotemia Hyponatremia Condition: Stable JAD NINA DO Aug 25, 2016 07:11
[2016-08-25 07:19] LABS: BACTERIA,URINE MANY; URINE RBCS >50 /HPF ([, 0])
[2016-08-25 08:53] LABS: LYMPHOCYTES # 3.1 10^3/ul (0.8-2.9); MONOCYTE # 1.2 10^3/ul (0.3-0.9); NEUTROPHIL # 22.1 10^3/ul (1.6-7.5)
[2016-08-25] MEDS ORDERED: IPRA3AMP INHALATION (09:26)
[2016-08-25] MEDS ORDERED: OMEP20CA16 GTB (09:28)
--- NOTE | 2016-08-25 12:58 | HP ---
Date/Time of Note Date/Time of Note DATE: 08/25/16 TIME: 12:48 Assessment/Plan VTE Prophylaxis VTE Prophylaxis Intervention: SCD's, other Assessment/Plan Assessment/Plan -Sepsis secondary to pneumonia and cystitis -ID consult, Dr. Shine notified - admit to ICU - see admission orders -[facility] Aquired Pneumonia- Bilateral pneumonia -Per ID -Ventilator dependent respiratory failure with tracheostomy, -Per pulmonary, Dr. Cameron notified -Aspiration precaution - ventilatory support. -Acute cystitis PSEUDOMONAS AERUGINOsa >100,000 CFU/ml -Dysphagia with PEG - aspiration precations --Normocytic anemia, continue to monitor hemoglobin and hematocrit. 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 -Epilepsy - seizure precautions -HTN- stable -CHF -GOUT - Cervical myelopathy, status post cervical spine and upper thoracic spine surgery. -BPH -Sacral and heel pressure ulcers - off loading - dietary consult - wound care consult - GERD - protonix - Long-Term Facility Resident Total critical time spent is 60 mins regarding- history, admission orders, dw staff/family. Further recommendations based on patient's clinical course discussed with staff, Dr. Manriquez, patient's son/ HPI/ROS Admit Date/Time Admit Date/Time Hx of Present Illness from [facility] for fever 101.6, given tylenol @ 2230. Vented. HPI This is an 81-year-old male who presents to the emergency room by ambulance from his nursing facility for evaluation of a fever. According to shelter notes this patient did have a fever of 101.6F and was given Tylenol at approximately 3:30 AM. Patient's son is at the bedtime but he is not able to provide much history. She is admitted on telemetry floor under Dr. Manriquez. During assessment patient is alert awake, follows simple commands, wants to be section complains of shortness of breath, afebrile. She denies any chest pa, palpitations, dizziness, focal weakness or numbness, abdominal pain nausea vomiting. Patient's son at the bedside all questions answered plan of care discussed with the son ROS All systems reviewed and are negative except as per history of present illness. Medications Home Meds Reported Medications Ferrous Sulfate (Ferrous Sulfate) 300 Mg/5 Ml Liquid, 330 MG GTB BID 07/04/16 Levalbuterol Hcl* (Levalbuterol Hcl*) 1.25 Mg/0.5 Ml Vial.neb, 1.25 MG INHALATION Q6 Y for bronchospasm, VIAL 07/04/16 Multivitamins* (Theragran*) 1 Tab Tab, 1 TAB GTB DAILY, TAB 07/04/16 Ondansetron Hcl* (Zofran*) 4 Mg Tablet, 4 MG GTB Q6H Y for NAUSEA AND OR VOMITING, TAB 07/04/16 Finasteride* (Finasteride*) 5 Mg Tablet, 5 MG GTB DAILY, TAB 07/04/16 Protein Supplement (Promod) 946 Ml Liquid, 30 ML GTB DAILY 07/04/16 Lansoprazole* (Lansoprazole*) 30 Mg Capsule.dr, 30 MG GTB DAILY, CAP 07/04/16 Hydrocodone/Acetaminophen ([place] 5-325 Tablet) 1 Each Tablet, 1 EACH GTB prn, TAB everyday dhift for pain management prior to wound care 07/04/16 Hydrocodone/Acetaminophen ([place] 5-325 Tablet) 1 Each Tablet, 1 EACH GTB Q6 Y for PAIN, TAB 07/04/16 Polyethylene Glycol* (Miralax*) 17 Gm Powd.pack, 17 GM GTB DAILY Y for CONSTIPATION, #30 PACKET 07/04/16 Metoprolol Tartrate* (Lopressor*) 100 Mg Tablet, 100 MG GTB BID, #60 TAB hold if less than 110 or HR 60 07/04/16 Magnesium Oxide* (Mag-Oxide*) 400 Mg Tablet, 400 MG GTB QHS, TAB 07/04/16 Levofloxacin* (Levaquin*) 500 Mg Tablet, 500 MG PO DAILY, TAB started 06-30-16 stop 07-08-16 07/04/16 Hydralazine Hcl* (Hydralazine Hcl*) 50 Mg Tab, 50 MG GTB Q8 Y for ELEVATED BLOOD PRESSURE, #90 TAB HOLD FOR SBP LESS THAN 115mmHg 07/04/16 Gabapentin* (Gabapentin*) 300 Mg Capsule, 300 MG GTB BID, #60 CAP 07/04/16 Ipratropium-Albuterol (Ipratropium-Albuterol) 0.5-3 Mg/3 Ml Ampul.neb, 3 ML INHALATION Q2H Y for SHORTNESS OF BREATH, #30 VIAL 07/04/16 Ipratropium-Albuterol (Ipratropium-Albuterol) 0.5-3 Mg/3 Ml Ampul.neb, 3 ML INHALATION Q6 Y for BRONCHOSPASM, #30 VIAL 07/04/16 Docusate Sodium* (Docusate Sodium*) 100 Mg Capsule, 100 MG GTB BID, #60 CAP 07/04/16 Clonidine Hcl* (Clonidine Hcl*) 0.1 Mg Tab, 0.1 MG GTB Q6 Y for ELEVATED BLOOD PRESSURE, TAB 07/04/16 Carbidopa-Levodopa* (Sinemet*) 25-100 Mg Tab, 0.5 TAB GTB BID, TAB 07/04/16 Benazepril Hcl* (Benazepril Hcl*) 40 Mg Tablet, 40 MG GTB DAILY, #30 TAB HOLD IF LESS THAN 110 OR HR LESS THAN 60 07/04/16 Lorazepam* (Ativan*) 0.5 Mg Tablet, 0.5 MG GTB Q6 Y for ANXIETY, #30 TAB 07/04/16 Ascorbic Acid* (Ascorbic Acid*) 500 Mg/5 Ml Syrup, 500 MG GTB DAILY, #150 ML 07/04/16 Polyvinyl Alcohol (Tears Again) 15 Ml Drops, 1 DRP OP DAILY Y for DRY EYES, BOTTLE 07/04/16 Amlodipine Besylate* (Norvasc*) 5 Mg Tablet, 5 MG GTB BID, TAB 07/04/16 Allopurinol* (Allopurinol*) 300 Mg Tablet, 300 MG GTB DAILY, TAB 07/04/16 Acetaminophen* (Acetaminophen* Susp) 325 Mg/10.15 Ml Solution, 650 MG GTB Q6 Y for PAIN, ML 07/04/16 Allergies Allergies: Coded Allergies: Penicillins (Verified Allergy, Intermediate, Rash, 07/12/16) egg (Verified Allergy, Mild, Rash, 07/12/16) ROS Eyes: no complaints ENT: no complaints Respiratory: shortness of breath Cardiovascular: no complaints Gastrointestinal: no complaints Genitourinary: no complaints Musculoskeletal: no complaints PMH/Family/Social Past Medical History PMhx/Soc History of Surgery: Yes Anesthesia Reaction: No Hx Neurological Disorder: Yes (Parkinson's, Epilepsy) Hx Respiratory Disorders: Yes (trach, vent dependent Resp Failure) Hx Cardiac Disorders: Yes (HTN, CHF) Hx Psychiatric Problems: No Hx Miscellaneous Medical Probl: Yes (GOUT, Cervical Stenosis, BPH, Sacral and heel pressure ulcers, GERD) Hx Alcohol Use: No Hx Substance Use: No Hx Tobacco Use: No Smoking Status: Unknown if ever smoked Social History Smoking Status: Unknown if ever smoked Exam/Review of Systems Vital Signs Vitals Vital Signs Date Time Temp Pulse Resp B/P Pulse Ox O2 Delivery O2 Flow Rate FiO2 08/25/16 12:11 82 19 129/55 98 Mechanical Ventilator 08/25/16 12:01 30 08/25/16 05:14 98.9 Exam Constitutional: alert, frail, well developed Psych: nl mood/affect Eyes: nl sclera ENMT: nl external ears & nose Neck: non-tender Respiratory: diminished breath sounds (Tracheostomy in place with mild green discharge, vent dependent,), other Cardiovascular: nl pulses Gastrointestinal: non-tender, other (Tracheostomy tube intact and greenish discharge noted during suctioning), soft Musculoskeletal: muscle weakness Extremities: normal pulses Neurological: other (Patient is awake and alert follows simple commands) Skin: other Lymph: nontender Labs Result Diagram: 08/25/16 0604 08/25/16 0604 Medications Medications Current Medications Sodium Chloride (NS) 1,000 ml @ 80 mls/hr [id number] IV ; Start 08/25/16 at 06:52 ; Stop 08/25/16 at 19:21 Procedures Procedures EKG: Rate/Rhythm: [Normal Sinus Rhythm] QRS, ST, T-waves: [No changes consistent w/ acute ischemia] Impression: [No evidence of ischemia or arrhythmia] Chest X-ray Soft Tissue: Bibasilar infiltrates Bones: No acute abnormalities Mediastinum/Cardiac Silhouette/Lungs: [No acute abnormalities] URINE CULTURE Final Organism 1 PSEUDOMONAS AERUGINOSA COLONY COUNT >100,000 CFU/ml GEOVANNY HARRIS Aug 25, 2016 12:58
--- NOTE | 2016-08-25 13:22 | CONS ---
Date/Time of Note Date/Time of Note DATE: 08/25/16 TIME: 13:18 Assessment/Plan Assessment/Plan Additional Assessment/Plan Chest x-ray was reviewed from today which is showing what appears to be developing right upper lobe infiltrate. Urine analysis is grossly positive for infection. Ventilator settings; AC of 12, tidal volume 500, PEEP of 5, 30% FiO2. Assessment recommendations; 1. Patient admitted for sepsis which is combination of right-sided pneumonia as well as UTI. 2. Chronic respiratory failure. 3. Anemia. 4. Multiple other comorbidities including Parkinson's disease, gout, seizure disorder, hypertension, BPH, acid reflux, anemia. Continue current treatment. Monitor hematocrit. Continue current antibiotic regimen. Further antibiotic adjustment to be done once sputum as well as urine culture results are obtained. Consultation Date/Type/Reason Admit Date/Time Date of Consultation: Aug 25, 2016 Type of Consultation: Pulmonary Reason for Consultation Pulmonary consultations obtained for evaluation of sepsis, patient with a history of chronic respiratory failure. History presenting any; next Patient is a 79-year-old male who [facility] with complaints of fever. Upon evaluation patient did have significant leukocytosis of 30,000. As well as anemia with hemoglobin of 7.6. The patient is a very poor historian on account of severe and history was obtained from medical records. Patient however is awake and alert. And has remained hemodynamically stable. Past medical history; 1. History of chronic respiratory failure, ventilator dependent. 2. Parkinson's disease. 3. Gout. 4. Seizure disorder. 5. Hypertension. 6. BPH. 7. History of cervical spine stenosis. 8. History of lumbar surgery. 9. Anemia. 10. Acid reflux. 11. History of CVA. Medications; were reviewed. Allergies; are to penicillin and eggs. Social history; patient has a history of no smoking alcohol or drug abuse. Family history; patient is has a supportive family. Occupational history; patient is on disability. 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 Review of systems; difficult to obtain. General exam; elderly male, on ventilator via tracheostomy currently in no distress awake and alert. Eyes: no complaints ENT: no complaints Respiratory: shortness of breath Cardiovascular: no complaints Gastrointestinal: no complaints Genitourinary: no complaints Musculoskeletal: no complaints Social History Smoking Status: Unknown if ever smoked Exam/Review of Systems Vital Signs Vitals Vital Signs Date Time Temp Pulse Resp B/P Pulse Ox O2 Delivery O2 Flow Rate FiO2 08/25/16 12:11 82 19 129/55 98 Mechanical Ventilator 08/25/16 12:01 30 08/25/16 05:14 98.9 Exam HEENT examination; supple neck, no JVD. No lymphadenopathy. Midline trachea. No thyromegaly. Patient has a few remaining carious teeth. Has bilateral intraocular lens. No neck masses. No thyromegaly. Tracheostomy in place with clean insertion site. Chest examination; diminished but clear breath sound bilaterally. S1-S2 audible , no murmurs. Regular rhythm. Abdomen examination; soft, no organomegaly, G-tube in place. No tenderness. Bowel sounds audible. Extremity examination; no peripheral edema. [employer] examination; patient is awake alert moves all 4 extremities on command. Results Result Diagram: 08/25/16 0604 08/25/16 0604 Results 24 hrs Laboratory Tests Test 08/25/16 05:15 08/25/16 05:32 08/25/16 06:04 08/25/16 08:44 Blood Gas Specimen Source Blood arterial Arterial Blood Date Drawn 08/25/2016 6:05:42 AM Arterial Blood pH (Temp corrected) 7.487 H Arterial Blood pCO2 (Temp correct) 45.1 H Arterial Blood pO2 (Temp corrected) 69.6 L Arterial Blood HCO3 33.4 H Arterial Blood Base Excess 9.0 H Arterial Blood Oxygen Saturation 95.2 Sha Test ACCEPTAB Arterial Blood Gas Puncture Site Right Radial Arterial Blood Carboxyhemoglobin 0.3 Arterial Blood Methemoglobin 0.4 Blood Gas A-a O2 Differential 91.3 H Oxyhemoglobin Percent 94.5 Total Hemoglobin 9.1 L Blood Gas Temperature 37.0 Blood Gas Respiration Rate 12.0 Blood Gas Actual Respiration Rate 20 Blood Gas Modality VENT - AC FiO2 30.0 Blood Gas Tidal Volume 500.0 Blood Gas Low PEEP Setting 5.0 Blood Gas Notified Whom MG Blood Gas Notified Time 08/25/2016 6:11:22 AM Urine Color YELLOW Urine Clarity SLIGHTLY CLOUDY Urine pH 7.5 Urine Specific [place] 1.010 Urine Ketones NEGATIVE Urine Nitrite NEGATIVE Urine Bilirubin NEGATIVE Urine Urobilinogen 0.2 E.U./dL Urine Leukocyte Esterase 3+ H Urine Microscopic RBC >50 Urine Microscopic WBC >200 Urine Epithelial Cells FEW Urine Bacteria MANY Urine Hemoglobin 2+ H Urine Glucose NEGATIVE Urine Total Protein 1+ H White Blood Count 30.7 #H Red Blood Count 2.54 L Hemoglobin 7.6 L Hematocrit 24.0 L Mean Corpuscular Volume 94.5 Mean Corpuscular Hemoglobin 29.9 Mean Corpuscular Hemoglobin Concent 31.7 L Red Cell Distribution Width 14.7 H Platelet Count 272 Mean Platelet Volume 11.3 H Neutrophils % 72.0 Band Neutrophils % 14.0 H Lymphocytes % 10.0 L Monocytes % 4.0 Neutrophils # 22.1 H Lymphocytes # 3.1 H Monocytes # 1.2 H Prothrombin Time 15.5 H Prothrombin Time Ratio 1.2 INR International Normalized Ratio 1.22 Activated Partial Thromboplast Time 31.6 Sodium Level 132 L Potassium Level 4.3 Chloride Level 89 L Carbon Dioxide Level 32 H Anion Gap 15 Blood Urea Nitrogen 63 H Creatinine 0.91 Glucose Level 152 Lactic Acid Level 2.2 1.1 Calcium Level 8.2 L Total Bilirubin 0.2 Direct Bilirubin 0.00 Indirect Bilirubin 0.2 Aspartate Amino Transf (AST/SGOT) 25 Alanine Aminotransferase (ALT/SGPT) 29 Alkaline Phosphatase 95 Troponin I 0.014 Total Protein 7.2 Albumin 2.8 L Globulin 4.40 H Albumin/Globulin Ratio 0.63 Test 08/25/16 10:48 Lactic Acid Level 0.8 Medications Medications Current Medications Sodium Chloride (NS) 1,000 ml @ 80 mls/hr [id number] IV Last administered on 08/25t 13:00; Admin Dose 80 MLS/HR; Start 08/25/16 at 06:52; Stop 08/25/16 at 19: 21 Benazepril HCl (Lotensin) 40 mg DAILY GTB ; Start 08/26/16 at 09:00; Status UNV Carbidopa/Levodopa (Sinemet (25/ 100)) 0.5 tab BID GTB ; Start 08/25/16 at 21:00 ; Status UNV Clonidine (Catapres) 0.1 mg Q6 PRN GTB ELEVATED BLOOD PRESSURE; Start 08/25/16 at 13:30; Status UNV Ferrous Sulfate (Feosol Liquid Cup) 330 mg BID GTB ; Start 08/25/16 at 21:00; Status UNV Finasteride (Proscar) 5 mg DAILY GTB ; Start 08/26/16 at 09:00; Status UNV Gabapentin (Neurontin) 300 mg BID GTB ; Start 08/25/16 at 21:00; Status UNV Acetaminophen/ Hydrocodone Bitart ([place] (5/325)) 1 tab prn GTB ; Start at 13:30; Status UNV Albuterol/ Ipratropium (Duoneb) 3 ml Q2HWA PRN INH WHEEZING AND SOB; Start at 13:30; Status UNV Lorazepam (Ativan) 0.5 mg Q6 PRN GTB ANXIETY; Start 08/25/16 at 13:30; Status UNV Magnesium Oxide (Mag-Ox 400) 400 mg QHS GTB ; Start 08/25/16 at 21:00; Status UNV Multivitamins Therapeutic (Theragran) 1 tab DAILY GTB ; Start 08/26/16 at 09:00 ; Status UNV Ondansetron HCl (Zofran Tab) 4 mg Q6H PRN GTB NAUSEA AND/OR VOMITING; Start at 13:30; Status UNV Pantoprazole (Protonix Tab) 40 mg ONCE ONCE PO ; Start 08/25/16 at 13:30; Stop 08/25/16 at 13:31; Status UNV Pantoprazole (Protonix Tab) 40 mg DAILY ONCE PO ; Start 08/26/16 at 09:00; Stop 08/26/16 at 09:01; Status UNV KARLI RILEY Aug 25, 2016 13:22
[2016-08-25] MEDS ORDERED: PANTOPRAZOLE (EC) 40 MG TAB PO ONE (13:30)
[2016-08-25] MEDS ORDERED: ACETAMINOPHEN 650MG/20.3ML CUP NGT PRN (13:30)
[2016-08-25] MEDS ORDERED: ALBUTEROL/IPRATROPIUM (NEB) 3 ML AMP INH PRN (13:30)
[2016-08-25] MEDS ORDERED: ONDANSETRON 4 MG TAB GTB PRN (13:30)
[2016-08-25] MEDS: HYDROCODONE/APAP (5/325) TAB GTB SCH (14:00)
[2016-08-25] MEDS: LORAZEPAM 0.5 MG TAB GTB PRN (21:56)
[2016-08-25] MEDS: MAGNESIUM OXIDE 400 MG TAB GTB SCH (21:56)
[2016-08-25] MEDS: CARBIDOPA/LEVODOPA (25/100) TAB GTB SCH (21:56)
[2016-08-25] MEDS: FERROUS SULFATE 60 MG/ML 5ML CUP GTB SCH (21:57)
[2016-08-25] MEDS: GABAPENTIN 300 MG CAP GTB SCH (22:05)
[2016-08-25] MEDS: DOCUSATE SODIUM 10 MG/ML (10ML CUP) GTB SCH (22:05)
--- NOTE | 2016-08-25 23:36 | RADRPT ---
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 Physician: GEOVANNY HARRIS Quality: Technically Difficult Study Procedures: Transthoracic echocardiogram with complete 2D, M-Mode, and doppler examination. Indications: Shortness of breath. 2D/M Mode Doppler Measurement Value Normal Ranges Measurement Value Normal Ranges LVIDd 2D 4.0 3.5 - 5.6 cm AV Peak Humberto 1.8 m/sec LVIDs 2D 2.5 2.1 - 4.1 cm AV Peak PG 13.0 mmHg FS 2D 36.8 % LVOT Peak Humberto 1.2 m/sec LVPWd 2D 1.1 0.6 - 1.1 cm LVOT Peak PG 6.0 mmHg IVSd 2D 1.1 0.6 - 1.1 cm MV E Peak Humberto 0.6 m/sec IVS/LVPW 2D 1.0 MV A Peak Humberto 1.1 m/sec AoR Diam 2D 2.7 2.0 - 3.7 cm MV E/A 0.5 LA/Ao 2D 1 0 - 1 MV Decel Time 187 msec EDV 2D 63.5 cm3 MV E/A 0.5 ESV 2D 16.0 cm3 TR Peak Humberto 2.7 m/sec LA Dimen 2D 2.8 2.3 - 4.0 cm TR Peak PG 29.0 mmHg RVSP 32.0 mmHg Findings Left Ventricle: Hyperdynamic left ventricular systolic function. Normal left ventricular cavity size. Mild concentric left ventricular hypertrophy. Ejection fraction is visually estimated at >65 %. Tissue Doppler/Mitral Doppler indices are consistent with impaired relaxation (Stage I diastolic dysfunction). Right Ventricle: Normal right ventricular size. Normal right ventricular systolic function. Left Atrium: The left atrium is normal in size. Right Atrium: The right atrium is normal in size. Mitral Valve: Mitral valve leaflets appear mildly thickened. Mild mitral annular calcification. Trace mitral regurgitation. Aortic Valve: Normal appearance of the aortic valve. No significant aortic stenosis or insufficiency. Tricuspid Valve: Normal appearance of the tricuspid valve. Estimated peak PA systolic pressure 32 mmHg. There is mild tricuspid regurgitation. Pulmonic Valve: Pulmonic valve not well visualized. Pericardium: Normal pericardium with no significant pericardial effusion. Aorta: Normal aortic root. IVC: Normal size and normal respiratory collapse consistent with normal right atrial pressure. Conclusions 1.Hyperdynamic left ventricular systolic function. Normal left ventricular cavity size. Mild concentric left ventricular hypertrophy. Ejection fraction is visually estimated at >65 %. Tissue Doppler/Mitral Doppler indices are consistent with impaired relaxation (Stage I diastolic dysfunction). 2.Mitral valve leaflets appear mildly thickened. Mild mitral annular calcification. Trace mitral regurgitation. 3.Normal appearance of the tricuspid valve. Estimated peak PA systolic pressure 32 mmHg. There is mild tricuspid regurgitation. Electronically Signed By: Berlin Chadwick 25-Aug-2016 23:35:29 -0700 Patient Name: SIMEON LUIS Study Date: 25-Aug-2016 [id number]
[2016-08-26] VITALS (8 sets, daily range): BP systolic 122–156; BP diastolic 59–77; PULSE 74–93; RESP 18–23; TEMP 97.7; Ht 170.2 cm; Wt 65.0 kg
[2016-08-26 06:16] LABS: ADD SCAN DIFF NO
[2016-08-26 06:24] LABS: BASOPHIL # 0.1 10^3/ul (0.0-0.1); BASOPHILS % 0.3 % (0.0-2.0); EOSINOPHILS # 0.1 10^3/ul (0.0-0.5); EOSINOPHILS % 0.7 % (0.0-7.0); HEMATOCRIT 25.9 % (42.0-52.0); LYMPHOCYTES # 2.4 10^3/ul (0.8-2.9); LYMPHOCYTES % 12.2 % (15.0-51.0); MEAN CORPUSCULAR HEMOGLOBIN 29.2 pg (29.0-33.0); MEAN CORPUSCULAR HGB CONC 30.9 g/dl (32.0-37.0); MEAN CORPUSCULAR VOLUME 94.5 fl (82.0-101.0); MEAN PLATELET VOLUME 10.2 fl (7.4-10.4); MONOCYTES % 5.3 % (0.0-11.0); NEUTROPHIL # 15.7 10^3/ul (1.6-7.5); NEUTROPHILS % 81.1 % (39.0-77.0); PLATELET COUNT 301 10^3/UL (140-415); RED BLOOD COUNT 2.74 10^6/ul (4.70-6.10); RED CELL DISTRIBUTION WIDTH 14.6 % (11.5-14.5); WHITE BLOOD COUNT 19.3 10^3/ul (4.8-10.8)
[2016-08-26 06:55] LABS: CREATININE 0.62 mg/dl (0.61-1.24)
[2016-08-26 07:20] LABS: POTASSIUM 3.8 mmol/L (3.5-5.1)
[2016-08-26 07:21] LABS: CALCIUM 8.7 mg/dl (8.4-10.2)
[2016-08-26] MEDS ORDERED: VANCOMYCIN IV PER PHARMACY XX SCH (09:00)
[2016-08-26] MEDS: DOCUSATE SODIUM 10 MG/ML (10ML CUP) GTB SCH ×2 (09:25→21:16)
[2016-08-26] MEDS: FERROUS SULFATE 60 MG/ML 5ML CUP GTB SCH ×2 (09:26→21:16)
[2016-08-26] MEDS: FINASTERIDE 5 MG TAB GTB SCH (09:26)
[2016-08-26] MEDS: BENAZEPRIL 40 MG TAB GTB SCH (09:26)
[2016-08-26] MEDS: CARBIDOPA/LEVODOPA (25/100) TAB GTB SCH ×2 (09:26→21:17)
[2016-08-26] MEDS: MULTIVITAMINS THERAPEUTIC TAB GTB SCH (09:26)
[2016-08-26] MEDS: GABAPENTIN 300 MG CAP GTB SCH ×2 (09:26→21:16)
[2016-08-26] MEDS: PANTOPRAZOLE (EC) 40 MG TAB PO SCH (09:35)
[2016-08-26] MEDS: LORAZEPAM 0.5 MG TAB GTB PRN (11:38)
--- NOTE | 2016-08-26 12:55 | CONS ---
DATE OF ADMISSION: 08/25/2016 DATE OF CONSULTATION: 08/26/2016 INFECTIOUS DISEASE CONSULTATION REASON FOR CONSULTATION: Antibiotic management. HISTORY OF PRESENT ILLNESS: Tee Box is an 81-year-old male who was admitted from a shelter facility with a temperature of 101.6. The patient is to be admitted to telemetry. His problems include: 1. Ventilator dependent respiratory failure. 2. Acute cystitis. 3. Parkinson's disease. 4. Prerenal azotemia. 5. Epilepsy. 6. Hypertension. 7. Coronary artery disease with congestive heart failure. 8. Gout. 9. Cervical stenosis. 10. Benign prostatic hypertrophy. 11. Sacral and heel pressure ulcers. 12. GERD. As noted, the patient comes in with a temperature of 101.6. He is awake, able to follow simple comm ands, but complains of shortness of breath. On admission as noted, his white count was 30.7, H and H 7.6 and 24, platelet count of 272,000. On August 26, white count was 19.3. BUN and creatinine are 38/0.62. Urine 3+ leukocyte esterase, greater than 200 white cells per high-power field. Urine ni trite is negative, leukocyte esterase is 3+ as noted. Blood cultures so far are negative. Chest x- ray shows possible developing basilar infiltrate. He has vascular congestion. PAST MEDICAL HISTORY: Operations as outlined. FAMILY HISTORY: Noncontributory. SOCIAL HISTORY: He does not smoke, drink or abuse drugs. ALLERGIES: 1. PENICILLIN. 2. EGGS. MEDICATIONS: Per chart. REVIEW OF SYSTEMS: As per HPI. PHYSICAL EXAMINATION: GENERAL: The patient is a frail, elderly appearing male who is awake, responsive, in no ac [place] distress. VITAL SIGNS: Stable. SKIN: Without generalized rash. HEENT: Within normal limits. NECK: He has a tracheostomy in place with some mild green discharge, he is ventilator dependent. LYMPH NODES: None palpable. CHEST: Decreased breath sounds at the bases with occasional rhonchi. HEART: Without murmur or gallop. ABDOMEN: Soft, nontender, without organosplenomegaly or masses. EXTREMITIES: Without cyanosis, clubbing, or edema. RECTAL AND GENITAL: Deferred. NEUROLOGIC: Difficult to ascertain. The patient follows simple commands, moves all extremities. Chest x-ray shows bibasilar infiltrates. EKG is normal sinus rhythm. The patient was also seen by Dr. Cameron in pulmonary consultation. A chest x-ray showed right upper lobe infiltrate. Urinalysis positive for infection and therefore he was admitted for right-sided pneumonia as well as urinary tr act infection. The patient is currently on cefepime and vancomycin. We will continue him on curren t therapy. I will dictate my findings to Dr. Manriquez. Dictated By: NEMO GOMEZ MD, JD/CHITRA Conf#: [id number] DID#: [id number]
[2016-08-26] MEDS: HYDROCODONE/APAP (5/325) TAB GTB SCH (14:19)
[2016-08-26] MEDS: CEFEPIME 1GM/50 ML (PMX) 50 ML IVPB SCH ×2 (15:31→23:00)
[2016-08-26] MEDS: VANCOMYCIN 750 MG in SOD CHLORIDE 0.9% 150 ML IVPB SCH (16:47)
--- NOTE | 2016-08-26 19:19 | PN ---
Date/Time of Note Date/Time of Note DATE: 08/26/16 TIME: 19:11 Assessment/Plan VTE Prophylaxis VTE Prophylaxis Intervention: SCD's Lines/Catheters IV Catheter Type (from Nrs): Peripheral IV Urinary Cath still in place: Yes Reason Cath still needed: urinary retention Assessment/Plan Chief Complaint/Hosp Course Assessment/Plan -Sepsis secondary to pneumonia and UTI, continue antibiotics per ID, Dr. Shine is following infection disease consultation. - HCAP -Ventilator dependent respiratory failure with tracheostomy, is following in pulmonology consultation, continue bronchodilators and ventilatory support. -Gram-negative rods urinary tract infection, continue antibiotics follow-up on final cultures. -Normocytic anemia, continue to monitor hemoglobin and hematocrit. -Prerenal azotemia - Cervical myelopathy, status post cervical spine and upper thoracic spine surgery. 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 -Dysphagia with PEG. -HTN -CHF -GOUT -Cervical Stenosis -BPH -Sacral and heel pressure ulcers - GERD Further recommendations based on clinical course. Plan of care discussed with Dr. Manriquez. Problems: Subjective 24 Hr Interval Summary Free Text/Dictation Patient is comfortable on ventilatory support via tracheostomy, no fever reported. Exam/Review of Systems Vital Signs Vitals Vital Signs Date Time Temp Pulse Resp B/P Pulse Ox O2 Delivery O2 Flow Rate FiO2 08/26/16 17:03 72 17 100 30 08/26/16 16:45 119/68 08/26/16 10:33 97.7 08/26/16 05:14 Trach Collar Intake and Output 08/25/16 08/25/16 08/26/16 15:00 23:00 07:00 Output Total 850 ml Balance -850 ml Exam Constitutional: alert, non-verbal Psych: no complaints Head: atraumatic Eyes: nl conjunctiva ENMT: nl external ears & nose Neck: other (Tracheostomy), supple Respiratory: crackles/rales, diminished breath sounds, other (On vent support) Cardiovascular: nl pulses, regular rate and rhythm Gastrointestinal: non-tender, other (G-tube), soft Musculoskeletal: nl extremities to inspection Extremities: normal pulses Neurological: confused Results Result Diagram: 08/26/16 0600 08/26/16 0600 Results 24 hrs Laboratory Tests Test 08/26/16 06:00 08/26/16 06:13 White Blood Count 19.3 #H Red Blood Count 2.74 L Hemoglobin 8.0 L Hematocrit 25.9 L Mean Corpuscular Volume 94.5 Mean Corpuscular Hemoglobin 29.2 Mean Corpuscular Hemoglobin Concent 30.9 L Red Cell Distribution Width 14.6 H Platelet Count 301 Mean Platelet Volume 10.2 Neutrophils % 81.1 H Lymphocytes % 12.2 L Monocytes % 5.3 Eosinophils % 0.7 Basophils % 0.3 Nucleated Red Blood Cells % 0.0 Neutrophils # 15.7 H Lymphocytes # 2.4 Monocytes # 1.0 H Eosinophils # 0.1 Basophils # 0.1 Nucleated Red Blood Cells # 0.0 Sodium Level 138 Potassium Level 3.8 Chloride Level 104 # Carbon Dioxide Level 29 Anion Gap 9 # Blood Urea Nitrogen 38 #H Creatinine 0.62 Glucose Level 86 # Calcium Level 8.7 B-Type Natriuretic Peptide 1230 H Medications Medications Current Medications Benazepril HCl (Lotensin) 40 mg DAILY GTB Last administered on 08/26/16 09:26 ; Admin Dose 40 MG; Start 08/26/16 at 09:00 Carbidopa/Levodopa (Sinemet (25/ 100)) 0.5 tab BID GTB Last administered on 09:26; Admin Dose 0.5 TAB; Start 08/25/16 at 21:00 Clonidine (Catapres) 0.1 mg Q6 PRN GTB SBP>160 Last administered on 08/26/16 14:19; Admin Dose 0.1 MG; Start 08/25/16 at 13:30 Ferrous Sulfate (Feosol Liquid Cup) 330 mg BID GTB Last administered on 09:26; Admin Dose 300 MG; Start 08/25/16 at 21:00 Finasteride (Proscar) 5 mg DAILY GTB Last administered on 08/26/16 09:26; Admin Dose 5 MG; Start 08/26/16 at 09:00 Gabapentin (Neurontin) 300 mg BID GTB Last administered on 08/26/16 09:26; Admin Dose 300 MG; Start 08/25/16 at 21:00 Acetaminophen/ Hydrocodone Bitart ([place] (5/325)) 1 tab prn GTB Last administered on 08/26/16 14:19; Admin Dose 1 TAB; Start 08/25/16 at 13:30 Albuterol/ Ipratropium (Duoneb) 3 ml Q2HWA PRN INH WHEEZING AND SOB; Start at 13:30 Lorazepam (Ativan) 0.5 mg Q6 PRN GTB ANXIETY Last administered on 08/26/16 11: 38; Admin Dose 0.5 MG; Start 08/25/16 at 13:30 Magnesium Oxide (Mag-Ox 400) 400 mg QHS GTB Last administered on 08/25/16 21: 56; Admin Dose 400 MG; Start 08/25/16 at 21:00 Multivitamins Therapeutic (Theragran) 1 tab DAILY GTB Last administered on 08/26 09:26; Admin Dose 1 TAB; Start 08/26/16 at 09:00 Ondansetron HCl (Zofran Tab) 4 mg Q6H PRN GTB NAUSEA AND/OR VOMITING; Start at 13:30 Pantoprazole (Protonix Tab) 40 mg DAILY PO Last administered on 08/26/16 09:35 ; Admin Dose 40 MG; Start 08/26/16 at 09:00 Acetaminophen (Tylenol Liquid) 650 mg Q6 PRN NGT FEVER GREATER THAN 100.6; Start 08/25/16 at 13:30 Docusate Sodium 100 mg 100 mg BID GTB Last administered on 08/26/16 09:25; Admin Dose 100 MG; Start 08/25/16 at 21:00 Cefepime HCl 50 ml @ 100 mls/hr BID IVPB Last administered on 08/26/16 15:31 ; Admin Dose 100 MLS/HR; Start 08/26/16 at 15:00 Vancomycin HCl/ Sodium Chloride (Vancocin/NS) 150 ml @ 75 mls/hr Q12H IVPB Last administered on 08/26/16 16:47; Admin Dose 75 MLS/HR; Start 08/26/16 at 16 :30 Miscellaneous Information (*Rx Drug Level Order Reminder*) VANCOMYCIN TROUGH AT 1,530 ON... ONCE ONCE XX ; Start 08/27/16 at 15:30; Stop 08/27/16 at 15:31 MARCO DOE Aug 26, 2016 19:19
[2016-08-26] MEDS: MAGNESIUM OXIDE 400 MG TAB GTB SCH (21:16)
[2016-08-27] VITALS (24 sets, daily range): BP systolic 116–169; BP diastolic 61–80; PULSE 53–107; RESP 12–25
[2016-08-27] MEDS: LORAZEPAM 0.5 MG TAB GTB PRN ×3 (00:39→16:15)
[2016-08-27] MEDS ORDERED: PENDING SANTYL ORDER FOR WOUND CARE XX PRN (03:00)
[2016-08-27 07:14] LABS: ADD SCAN DIFF NO
[2016-08-27 07:27] LABS: BASOPHIL # 0.1 10^3/ul (0.0-0.1); BASOPHILS % 0.4 % (0.0-2.0); EOSINOPHILS # 0.1 10^3/ul (0.0-0.5); EOSINOPHILS % 1.1 % (0.0-7.0); HEMATOCRIT 32.8 % (42.0-52.0); HEMOGLOBIN 9.9 g/dl (14.0-18.0); LYMPHOCYTES # 2.4 10^3/ul (0.8-2.9); LYMPHOCYTES % 21.5 % (15.0-51.0); MEAN CORPUSCULAR HEMOGLOBIN 29.9 pg (29.0-33.0); MEAN CORPUSCULAR HGB CONC 30.2 g/dl (32.0-37.0); MEAN CORPUSCULAR VOLUME 99.1 fl (82.0-101.0); MEAN PLATELET VOLUME 10.8 fl (7.4-10.4); MONOCYTE # 0.9 10^3/ul (0.3-0.9); MONOCYTES % 8.2 % (0.0-11.0); NEUTROPHIL # 7.8 10^3/ul (1.6-7.5); NEUTROPHILS % 68.4 % (39.0-77.0); PLATELET COUNT 260 10^3/UL (140-415); RED BLOOD COUNT 3.31 10^6/ul (4.70-6.10); RED CELL DISTRIBUTION WIDTH 14.6 % (11.5-14.5); WHITE BLOOD COUNT 11.4 10^3/ul (4.8-10.8)
[2016-08-27 07:49] LABS: CREATININE 0.56 mg/dl (0.61-1.24); POTASSIUM 4.1 mmol/L (3.5-5.1)
[2016-08-27] MEDS: GABAPENTIN 300 MG CAP GTB SCH ×2 (09:19→22:10)
[2016-08-27] MEDS: VANCOMYCIN 750 MG in SOD CHLORIDE 0.9% 150 ML IVPB SCH ×2 (09:20→22:28)
[2016-08-27] MEDS: FINASTERIDE 5 MG TAB GTB SCH (09:20)
[2016-08-27] MEDS: FERROUS SULFATE 60 MG/ML 5ML CUP GTB SCH ×2 (09:20→22:10)
[2016-08-27] MEDS: DOCUSATE SODIUM 10 MG/ML (10ML CUP) GTB SCH ×2 (09:20→22:10)
[2016-08-27] MEDS: PANTOPRAZOLE (EC) 40 MG TAB PO SCH (09:20)
[2016-08-27] MEDS: MULTIVITAMINS THERAPEUTIC TAB GTB SCH (09:20)
[2016-08-27] MEDS: CARBIDOPA/LEVODOPA (25/100) TAB GTB SCH ×2 (09:20→22:10)
[2016-08-27] MEDS: BENAZEPRIL 40 MG TAB GTB SCH (09:20)
--- NOTE | 2016-08-27 11:24 | PN ---
Date/Time of Note Date/Time of Note DATE: 08/27/16 TIME: 11:24 Assessment/Plan VTE Prophylaxis VTE Prophylaxis Intervention: other Lines/Catheters IV Catheter Type (from Nrs): Peripheral IV Urinary Cath still in place: Yes Reason Cath still needed: skin wounds contaminated by urine Assessment/Plan Chief Complaint/Hosp Course -Sepsis secondary to pneumonia and UTI, continue antibiotics per ID, Dr. Shine is following infection disease consultation. - HCAP -Ventilator dependent respiratory failure with tracheostomy, is following in pulmonology consultation, continue bronchodilators and ventilatory support. -Gram-negative rods urinary tract infection, continue antibiotics follow-up on final cultures. -Normocytic anemia, continue to monitor hemoglobin and hematocrit. -Prerenal azotemia - Cervical myelopathy, status post cervical spine and upper thoracic spine surgery. 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 -Dysphagia with PEG. -HTN -CHF -GOUT -Cervical Stenosis -BPH -Sacral and heel pressure ulcers - GERD Problems: Subjective 24 Hr Interval Summary Free Text/Dictation Patient is resting comfortably Exam/Review of Systems Vital Signs Vitals Vital Signs Date Time Temp Pulse Resp B/P Pulse Ox O2 Delivery O2 Flow Rate FiO2 08/27/16 09:20 97 25 98 30 08/27/16 08:03 97.5 166/74 08/26/16 22:00 Mechanical Ventilator Intake and Output 08/26/16 08/26/16 08/27/16 15:00 23:00 07:00 Intake Total 250 ml Output Total 800 ml 1000 ml 600 ml Balance -800 ml -1000 ml -350 ml Exam Constitutional: well developed Head: atraumatic, normocephalic Neck: supple Respiratory: diminished breath sounds Cardiovascular: regular rate and rhythm Gastrointestinal: non-tender, soft Extremities: normal pulses Results Result Diagram: 08/27/16 0611 08/27/16 0611 Results 24 hrs Laboratory Tests Test 08/27/16 06:11 White Blood Count 11.4 #H Red Blood Count 3.31 #L Hemoglobin 9.9 #L Hematocrit 32.8 #L Mean Corpuscular Volume 99.1 Mean Corpuscular Hemoglobin 29.9 Mean Corpuscular Hemoglobin Concent 30.2 L Red Cell Distribution Width 14.6 H Platelet Count 260 Mean Platelet Volume 10.8 H Neutrophils % 68.4 Lymphocytes % 21.5 Monocytes % 8.2 Eosinophils % 1.1 Basophils % 0.4 Nucleated Red Blood Cells % 0.0 Neutrophils # 7.8 H Lymphocytes # 2.4 Monocytes # 0.9 Eosinophils # 0.1 Basophils # 0.1 Nucleated Red Blood Cells # 0.0 Sodium Level 139 Potassium Level 4.1 Chloride Level 104 Carbon Dioxide Level 28 Anion Gap 11 Blood Urea Nitrogen 30 H Creatinine 0.56 L Glucose Level 121 Calcium Level 9.0 Medications Medications Current Medications Benazepril HCl (Lotensin) 40 mg DAILY GTB Last administered on 08/27/16 09:20 ; Admin Dose 40 MG; Start 08/26/16 at 09:00 Carbidopa/Levodopa (Sinemet (25/ )) 0.5 tab BID GTB Last administered on 09:20; Admin Dose 0.5 TAB; Start 08/25/16 at 21:00 Clonidine (Catapres) 0.1 mg Q6 PRN GTB SBP>160 Last administered on 08/26/16 14:19; Admin Dose 0.1 MG; Start 08/25/16 at 13:30 Ferrous Sulfate (Feosol Liquid Cup) 330 mg BID GTB Last administered on 09:20; Admin Dose 330 MG; Start 08/25/16 at 21:00 Finasteride (Proscar) 5 mg DAILY GTB Last administered on 08/27/16 09:20; Admin Dose 5 MG; Start 08/26/16 at 09:00 Gabapentin (Neurontin) 300 mg BID GTB Last administered on 08/27/16 09:19; Admin Dose 300 MG; Start 08/25/16 at 21:00 Acetaminophen/ Hydrocodone Bitart ([place] (5/325)) 1 tab prn GTB Last administered on 08/26/16 14:19; Admin Dose 1 TAB; Start 08/25/16 at 13:30 Albuterol/ Ipratropium (Duoneb) 3 ml Q2HWA PRN INH WHEEZING AND SOB; Start at 13:30 Lorazepam (Ativan) 0.5 mg Q6 PRN GTB ANXIETY Last administered on 08/27/16 09: 20; Admin Dose 0.5 MG; Start 08/25/16 at 13:30 Magnesium Oxide (Mag-Ox 400) 400 mg QHS GTB Last administered on 08/26/16 21: 16; Admin Dose 400 MG; Start 08/25/16 at 21:00 Multivitamins Therapeutic (Theragran) 1 tab DAILY GTB Last administered on 08/27 09:20; Admin Dose 1 TAB; Start 08/26/16 at 09:00 Ondansetron HCl (Zofran Tab) 4 mg Q6H PRN GTB NAUSEA AND/OR VOMITING; Start at 13:30 Pantoprazole (Protonix Tab) 40 mg DAILY PO Last administered on 08/27/16 09:20 ; Admin Dose 40 MG; Start 08/26/16 at 09:00 Acetaminophen (Tylenol Liquid) 650 mg Q6 PRN NGT FEVER GREATER THAN 100.6; Start 08/25/16 at 13:30 Docusate Sodium 100 mg 100 mg BID GTB Last administered on 08/27/16 09:20; Admin Dose 100 MG; Start 08/25/16 at 21:00 Cefepime HCl 50 ml @ 100 mls/hr BID IVPB Last administered on 08/26/16 23:00 ; Admin Dose 100 MLS/HR; Start 08/26/16 at 15:00 Vancomycin HCl/ Sodium Chloride (Vancocin/NS) 150 ml @ 75 mls/hr Q12H IVPB Last administered on 08/27/16 09:20; Admin Dose 75 MLS/HR; Start 08/26/16 at 16 :30 Miscellaneous Information (*Rx Drug Level Order Reminder*) VANCOMYCIN TROUGH AT 1,530 ON... ONCE ONCE XX ; Start 08/27/16 at 15:30; Stop 08/27/16 at 15:31 Miscellaneous Information (Pending Santyl Order For Wound Care) This patient suarez... PRN PRN XX WOUND CARE; Start 08/27/16 at 03:00 JAYME WALL Aug 27, 2016 11:24
--- NOTE | 2016-08-27 12:17 | CONS ---
Date/Time of Note Date/Time of Note DATE: 08/27/16 TIME: 12:15 Assessment/Plan Assessment/Plan Additional Assessment/Plan Ventilator settings; AC of 12, tidal volume 500, PEEP of 5, 30% FiO2. Assessment recommendations; next 1. Patient admitted for severe sepsis due to UTI and right lower lobe pneumonia with significant improvement in leukocytosis. 2. Chronic respiratory failure. 3. Dementia. 4. History of hypertension, seizures, BPH, anemia, gout, and Parkinson's disease. Continue current supportive care. Patient responding well to current treatment regimen. Consultation Date/Type/Reason Admit Date/Time Aug 26, 2016 at 06:53 Initial Consult Date 08/25/16 Type of Consultation: Pulmonary 24 HR Interval Summary Free Text/Dictation Patient condition is stable. Remains awake. Has remained hemodynamically stable. General exam; elderly male, on ventilator via tracheostomy currently in no distress. Exam/Review of Systems Vital Signs Vitals Vital Signs Date Time Temp Pulse Resp B/P Pulse Ox O2 Delivery O2 Flow Rate FiO2 08/27/16 11:57 95 24 98 30 08/27/16 11:48 98.3 154/65 08/26/16 22:00 Mechanical Ventilator Intake and Output 08/26/16 08/26/16 08/27/16 15:00 23:00 07:00 Intake Total 250 ml Output Total 800 ml 1000 ml 600 ml Balance -800 ml -1000 ml -350 ml Exam HEENT exam is; supple neck, no JVD. No lymphadenopathy. Midline trachea. No thyromegaly. Tracheostomy in place with clean insertion site. Patient has a multiple carious teeth. Pupils are small bilaterally. Chest examination; diminished but clear vessel bilaterally. S1-S2 audible, no murmurs. Regular rhythm. Abdomen examination; soft, non-distended. No organomegaly. G-tube in place. Bowel sounds audible. Extremity examination; no peripheral edema. 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 Results Result Diagram: 08/27/16 0611 08/27/16 0611 Results 24 hrs Laboratory Tests Test 08/27/16 06:11 White Blood Count 11.4 #H Red Blood Count 3.31 #L Hemoglobin 9.9 #L Hematocrit 32.8 #L Mean Corpuscular Volume 99.1 Mean Corpuscular Hemoglobin 29.9 Mean Corpuscular Hemoglobin Concent 30.2 L Red Cell Distribution Width 14.6 H Platelet Count 260 Mean Platelet Volume 10.8 H Neutrophils % 68.4 Lymphocytes % 21.5 Monocytes % 8.2 Eosinophils % 1.1 Basophils % 0.4 Nucleated Red Blood Cells % 0.0 Neutrophils # 7.8 H Lymphocytes # 2.4 Monocytes # 0.9 Eosinophils # 0.1 Basophils # 0.1 Nucleated Red Blood Cells # 0.0 Sodium Level 139 Potassium Level 4.1 Chloride Level 104 Carbon Dioxide Level 28 Anion Gap 11 Blood Urea Nitrogen 30 H Creatinine 0.56 L Glucose Level 121 Calcium Level 9.0 Medications Medications Current Medications Benazepril HCl (Lotensin) 40 mg DAILY GTB Last administered on 08/27/16 09:20 ; Admin Dose 40 MG; Start 08/26/16 at 09:00 Carbidopa/Levodopa (Sinemet (25/ 100)) 0.5 tab BID GTB Last administered on 09:20; Admin Dose 0.5 TAB; Start 08/25/16 at 21:00 Clonidine (Catapres) 0.1 mg Q6 PRN GTB SBP>160 Last administered on 08/26/16 14:19; Admin Dose 0.1 MG; Start 08/25/16 at 13:30 Ferrous Sulfate (Feosol Liquid Cup) 330 mg BID GTB Last administered on 09:20; Admin Dose 330 MG; Start 08/25/16 at 21:00 Finasteride (Proscar) 5 mg DAILY GTB Last administered on 08/27/16 09:20; Admin Dose 5 MG; Start 08/26/16 at 09:00 Gabapentin (Neurontin) 300 mg BID GTB Last administered on 08/27/16 09:19; Admin Dose 300 MG; Start 08/25/16 at 21:00 Acetaminophen/ Hydrocodone Bitart ([place] (5/325)) 1 tab prn GTB Last administered on 08/26/16 14:19; Admin Dose 1 TAB; Start 08/25/16 at 13:30 Albuterol/ Ipratropium (Duoneb) 3 ml Q2HWA PRN INH WHEEZING AND SOB; Start at 13:30 Lorazepam (Ativan) 0.5 mg Q6 PRN GTB ANXIETY Last administered on 08/27/16 09: 20; Admin Dose 0.5 MG; Start 08/25/16 at 13:30 Magnesium Oxide (Mag-Ox 400) 400 mg QHS GTB Last administered on 08/26/16 21: 16; Admin Dose 400 MG; Start 08/25/16 at 21:00 Multivitamins Therapeutic (Theragran) 1 tab DAILY GTB Last administered on 08/27 09:20; Admin Dose 1 TAB; Start 08/26/16 at 09:00 Ondansetron HCl (Zofran Tab) 4 mg Q6H PRN GTB NAUSEA AND/OR VOMITING; Start at 13:30 Pantoprazole (Protonix Tab) 40 mg DAILY PO Last administered on 08/27/16 09:20 ; Admin Dose 40 MG; Start 08/26/16 at 09:00 Acetaminophen (Tylenol Liquid) 650 mg Q6 PRN NGT FEVER GREATER THAN 100.6; Start 08/25/16 at 13:30 Docusate Sodium 100 mg 100 mg BID GTB Last administered on 08/27/16 09:20; Admin Dose 100 MG; Start 08/25/16 at 21:00 Cefepime HCl 50 ml @ 100 mls/hr BID IVPB Last administered on 08/26/16 23:00 ; Admin Dose 100 MLS/HR; Start 08/26/16 at 15:00 Vancomycin HCl/ Sodium Chloride (Vancocin/NS) 150 ml @ 75 mls/hr Q12H IVPB Last administered on 08/27/16 09:20; Admin Dose 75 MLS/HR; Start 08/26/16 at 16 :30 Miscellaneous Information (*Rx Drug Level Order Reminder*) VANCOMYCIN TROUGH AT 1,530 ON... ONCE ONCE XX ; Start 08/27/16 at 15:30; Stop 08/27/16 at 15:31 Miscellaneous Information (Pending Santyl Order For Wound Care) This patient suarez... PRN PRN XX WOUND CARE; Start 08/27/16 at 03:00 KARLI RILEY Aug 27, 2016 12:17
[2016-08-27] MEDS: HYDROCODONE/APAP (5/325) TAB GTB SCH (13:54)
[2016-08-27] MEDS: CEFEPIME 1GM/50 ML (PMX) 50 ML IVPB SCH (13:54)
--- NOTE | 2016-08-27 19:51 | CONS ---
Date/Time of Note Date/Time of Note DATE: 08/27/16 TIME: 19:34 Assessment/Plan Assessment/Plan Chief Complaint/Hosp Course ID PROGRESS NOTE ABX DAY #3 =>Vanco #3, Cefepime #3 s/p Azactam x1 ED 08/25 24H INTERVAL SUMMARY * I presented to the patient's room earlier today and spouse was present with note placed later. * Patient is A/A/O, communicative, (+)Trach, No fevers, feels well, moves all extremities. * Overall he is feeling much better -- presented with acute UTI and evidence of new PNA on CXR * CXR: IMPRESSION: Possible developing basilar infiltrates * MICRO 08/25 RESULTED: URINE CULTURE Preliminary Organism 1 PSEUDOMONAS AERUGINOSA COLONY COUNT >100,000 CFU/ml P.AERUG M.I.C. RX --------- --- AMIKACIN 16 S CEFEPIME 16 I CEFTAZIDIME 16 I CIPROFLOXACIN >=4 R GENTAMICIN 8 I IMIPENEM 2 S LEVOFLOXACIN >=8 R TOBRAMYCIN <=1 S PHYSICAL EXAMINATION: GENERAL: 81 yo M awake, alert, communicative, NAD, VSS HEENT: Unremarkable NECK: Supple, (+)Trach CHEST: Rise symmetrical, HEART: Pulse RRR ABDOMEN: Soft, non-tender EXTREMITIES: Warm, dry, no edema ID ASSESSMENT 81 yo M /PMHx Parkinson's, Dementia, SZs, HTN, anemia, gout, Trach presented with: 1. Severe sepsis due to UTI and right lower lobe pneumonia with significant improvement * 08/25 BCx (-) 2. ASP PNA vs HCAP 3. (+)PSAR UTI -> Sensitive to Primaxin, Intermediate to Cefepime 4. BPH 5. Suspect obstructive uropathy risks factors: (+)BPH w/suspected neurogenic bladder INVASIVES: PIV, ABX ALLERGY: KNDA CURRENT ABX: #3 =>Vanco IV + Primaxin #1 Cefepime -> Dc tonight 08/27 s/p Azactam x1 08/25 ED ID RECOMMENDATIONS 1. Check nares for MRSA, sputum for C&S 2.Continue Vanco IV for concern HCAP-> DC if MRSA nares (-) and CXR improves 3. Change Cefepime to Primaxin to cover (+)PSAR complicated UTI only Intermediate to Cefepime * -- ABX plan of care discussed w/spouse who expresses agreement/understanding/ gratitude . Problems: Consultation Date/Type/Reason Admit Date/Time Aug 26, 2016 at 06:53 Initial Consult Date 08/25/16 Type of Consultation: ID Exam/Review of Systems Vital Signs Vitals Vital Signs Date Time Temp Pulse Resp B/P Pulse Ox O2 Delivery O2 Flow Rate FiO2 08/27/16 19:28 15 30 08/27/16 17:27 98 98 08/27/16 17:21 116/61 08/27/16 15:35 98.3 08/26/16 22:00 Mechanical Ventilator Intake and Output 08/26/16 08/26/16 08/27/16 15:00 23:00 07:00 Intake Total 250 ml Output Total 800 ml 1000 ml 600 ml Balance -800 ml -1000 ml -350 ml Results Result Diagram: 08/27/16 0611 08/27/16 0611 Results 24 hrs Laboratory Tests Test 08/27/16 06:11 White Blood Count 11.4 #H Red Blood Count 3.31 #L Hemoglobin 9.9 #L Hematocrit 32.8 #L Mean Corpuscular Volume 99.1 Mean Corpuscular Hemoglobin 29.9 Mean Corpuscular Hemoglobin Concent 30.2 L Red Cell Distribution Width 14.6 H Platelet Count 260 Mean Platelet Volume 10.8 H Neutrophils % 68.4 Lymphocytes % 21.5 Monocytes % 8.2 Eosinophils % 1.1 Basophils % 0.4 Nucleated Red Blood Cells % 0.0 Neutrophils # 7.8 H Lymphocytes # 2.4 Monocytes # 0.9 Eosinophils # 0.1 Basophils # 0.1 Nucleated Red Blood Cells # 0.0 Sodium Level 139 Potassium Level 4.1 Chloride Level 104 Carbon Dioxide Level 28 Anion Gap 11 Blood Urea Nitrogen 30 H Creatinine 0.56 L Glucose Level 121 Calcium Level 9.0 Medications Medications Current Medications Benazepril HCl (Lotensin) 40 mg DAILY GTB Last administered on 08/27/16t 09:20 ; Admin Dose 40 MG; Start 08/26/16 at 09:00 Carbidopa/Levodopa (Sinemet (25/ 100)) 0.5 tab BID GTB Last administered on 09:20; Admin Dose 0.5 TAB; Start 08/25/16 at 21:00 Clonidine (Catapres) 0.1 mg Q6 PRN GTB SBP>160 Last administered on 08/27/16 16:15; Admin Dose 0.1 MG; Start 08/25/16 at 13:30 Ferrous Sulfate (Feosol Liquid Cup) 330 mg BID GTB Last administered on 09:20; Admin Dose 330 MG; Start 08/25/16 at 21:00 Finasteride (Proscar) 5 mg DAILY GTB Last administered on 08/27/16 09:20; Admin Dose 5 MG; Start 08/26/16 at 09:00 Gabapentin (Neurontin) 300 mg BID GTB Last administered on 08/27/16 09:19; Admin Dose 300 MG; Start 08/25/16 at 21:00 Acetaminophen/ Hydrocodone Bitart ([place] (5/325)) 1 tab prn GTB Last administered on 08/27/16 13:54; Admin Dose 1 TAB; Start 08/25/16 at 13:30 Albuterol/ Ipratropium (Duoneb) 3 ml Q2HWA PRN INH WHEEZING AND SOB; Start at 13:30 Lorazepam (Ativan) 0.5 mg Q6 PRN GTB ANXIETY Last administered on 08/27/16 16: 15; Admin Dose 0.5 MG; Start 08/25/16 at 13:30 Magnesium Oxide (Mag-Ox 400) 400 mg QHS GTB Last administered on 08/26/16 21: 16; Admin Dose 400 MG; Start 08/25/16 at 21:00 Multivitamins Therapeutic (Theragran) 1 tab DAILY GTB Last administered on 08/27 09:20; Admin Dose 1 TAB; Start 08/26/16 at 09:00 Ondansetron HCl (Zofran Tab) 4 mg Q6H PRN GTB NAUSEA AND/OR VOMITING; Start at 13:30 Pantoprazole (Protonix Tab) 40 mg DAILY PO Last administered on 08/27/16 09:20 ; Admin Dose 40 MG; Start 08/26/16 at 09:00 Acetaminophen (Tylenol Liquid) 650 mg Q6 PRN NGT FEVER GREATER THAN 100.6; Start 08/25/16 at 13:30 Docusate Sodium 100 mg 100 mg BID GTB Last administered on 08/27/16 09:20; Admin Dose 100 MG; Start 08/25/16 at 21:00 Cefepime HCl (Maxipime 1gm/50 ml (Pmx)) 50 ml @ 100 mls/hr BID IVPB Last administered on 08/27/16 13:54; Admin Dose 100 MLS/HR; Start 08/26/16 at 15:00 Miscellaneous Information This patient suarez... PRN PRN XX WOUND CARE; Start 08/27 at 03:00 Vancomycin HCl/ Sodium Chloride (Vancocin/NS) 150 ml @ 75 mls/hr Q12H IVPB ; Start 08/27/16 at 21:30 Miscellaneous Information (*Rx Drug Level Order Reminder*) VANCOMYCIN TROUGH AT 0830 ONCE ONCE XX ; Start 08/28/16 at 08:30; Stop 08/28/16 at 08:31 MEAGAN LOPES ON SITE WASTEWATER SYSTEMS TECHNICIAN Aug 27, 2016 19:49
[2016-08-27] MEDS: MAGNESIUM OXIDE 400 MG TAB GTB SCH (22:10)
[2016-08-27] MEDS: IMIPENEM-CILAST 500MG IV (PMX) 100 ML IVPB SCH (22:11)
[2016-08-28] VITALS (23 sets, daily range): BP systolic 120–151; BP diastolic 59–70; PULSE 58–78; RESP 13–21
[2016-08-28] MEDS: IMIPENEM-CILAST 500MG IV (PMX) 100 ML IVPB SCH ×3 (05:37→21:01)
[2016-08-28] MEDS: FERROUS SULFATE 60 MG/ML 5ML CUP GTB SCH ×2 (09:17→20:06)
[2016-08-28] MEDS: DOCUSATE SODIUM 10 MG/ML (10ML CUP) GTB SCH ×2 (09:17→20:05)
[2016-08-28] MEDS: PANTOPRAZOLE (EC) 40 MG TAB PO SCH (09:18)
[2016-08-28] MEDS: CARBIDOPA/LEVODOPA (25/100) TAB GTB SCH ×2 (09:18→20:06)
[2016-08-28] MEDS: FINASTERIDE 5 MG TAB GTB SCH (09:18)
[2016-08-28] MEDS: GABAPENTIN 300 MG CAP GTB SCH ×2 (09:18→20:06)
[2016-08-28] MEDS: MULTIVITAMINS THERAPEUTIC TAB GTB SCH (09:18)
[2016-08-28] MEDS: BENAZEPRIL 40 MG TAB GTB SCH (09:18)
[2016-08-28] MEDS: VANCOMYCIN 750 MG in SOD CHLORIDE 0.9% 150 ML IVPB SCH (09:19)
--- NOTE | 2016-08-28 11:27 | PN ---
Date/Time of Note Date/Time of Note DATE: 08/28/16 TIME: 11:26 Assessment/Plan VTE Prophylaxis VTE Prophylaxis Intervention: other Lines/Catheters IV [facility]ter Type [facility]from [facility]): Saline Lock Urinary Cath still in place: Yes Reason Cath still needed: skin wounds contaminated by urine Assessment/Plan Chief Complaint/Hosp Course -Sepsis secondary to pneumonia and UTI, continue antibiotics per ID, Dr. Shine is following infection disease consultation. - HCAP -Ventilator dependent respiratory failure with tracheostomy, is following in pulmonology consultation, continue bronchodilators and ventilatory support. -Gram-negative rods urinary tract infection, continue antibiotics follow-up on final cultures. -Normocytic anemia, continue to monitor hemoglobin and hematocrit. -Prerenal azotemia - Cervical myelopathy, status post cervical spine and upper thoracic spine surgery. 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 -Dysphagia with PEG. -HTN -CHF -GOUT -Cervical Stenosis -BPH -Sacral and heel pressure ulcers - GERD Problems: Subjective 24 Hr Interval Summary Free Text/Dictation Patient has no complaints Exam/Review of Systems Vital Signs Vitals Vital Signs Date Time Temp Pulse Resp B/P Pulse Ox O2 Delivery O2 Flow Rate FiO2 08/28/16 09:45 62 18 100 30 08/28/16 07:50 99.1 146/64 08/26/16 22:00 Mechanical Ventilator Intake and Output 08/27/16 08/27/16 08/28/16 14:59 22:59 06:59 Intake Total 200 ml 1400 ml 978 ml Output Total 2450 ml 650 ml Balance 200 ml -1050 ml 328 ml Exam Constitutional: well developed Head: atraumatic, normocephalic Neck: supple Respiratory: diminished breath sounds Cardiovascular: regular rate and rhythm Gastrointestinal: non-tender, soft Extremities: normal pulses Results Result Diagram: 08/27/16 0611 08/27/16 0611 Results 24 hrs Laboratory Tests Test 08/28/16 08:00 Vancomycin Level Trough 16.5 Medications Medications Current Medications Benazepril HCl (Lotensin) 40 mg DAILY GTB Last administered on 08/28/16 09:18 ; Admin Dose 40 MG; Start 08/26/16 at 09:00 Carbidopa/Levodopa (Sinemet (25/ 100)) 0.5 tab BID GTB Last administered on 09:18; Admin Dose 0.5 TAB; Start 08/25/16 at 21:00 Clonidine (Catapres) 0.1 mg Q6 PRN GTB SBP>160 Last administered on 08/27/16 16:15; Admin Dose 0.1 MG; Start 08/25/16 at 13:30 Ferrous Sulfate (Feosol Liquid Cup) 330 mg BID GTB Last administered on 09:17; Admin Dose 330 MG; Start 08/25/16 at 21:00 Finasteride (Proscar) 5 mg DAILY GTB Last administered on 08/28/16 09:18; Admin Dose 5 MG; Start 08/26/16 at 09:00 Gabapentin (Neurontin) 300 mg BID GTB Last administered on 08/28/16 09:18; Admin Dose 300 MG; Start 08/25/16 at 21:00 Acetaminophen/ Hydrocodone Bitart ([place] (5/325)) 1 tab prn GTB Last administered on 08/27/16 13:54; Admin Dose 1 TAB; Start 08/25/16 at 13:30 Albuterol/ Ipratropium (Duoneb) 3 ml Q2HWA PRN INH WHEEZING AND SOB; Start at 13:30 Lorazepam (Ativan) 0.5 mg Q6 PRN GTB ANXIETY Last administered on 08/27/16 16: 15; Admin Dose 0.5 MG; Start 08/25/16 at 13:30 Magnesium Oxide (Mag-Ox 400) 400 mg QHS GTB Last administered on 08/27/16 22: 10; Admin Dose 400 MG; Start 08/25/16 at 21:00 Multivitamins Therapeutic (Theragran) 1 tab DAILY GTB Last administered on 08/28 09:18; Admin Dose 1 TAB; Start 08/26/16 at 09:00 Ondansetron HCl (Zofran Tab) 4 mg Q6H PRN GTB NAUSEA AND/OR VOMITING; Start at 13:30 Pantoprazole (Protonix Tab) 40 mg DAILY PO Last administered on 08/28/16 09:18 ; Admin Dose 40 MG; Start 08/26/16 at 09:00 Acetaminophen (Tylenol Liquid) 650 mg Q6 PRN NGT FEVER GREATER THAN 100.6; Start 08/25/16 at 13:30 Docusate Sodium (Colace Liquid Cup) 100 mg BID GTB Last administered on 09:17; Admin Dose 100 MG; Start 08/25/16 at 21:00 Miscellaneous Information This patient suarez... PRN PRN XX WOUND CARE; Start 08/27 at 03:00 Imipenem/ Cilastatin Sodium 100 ml @ 100 mls/hr Q8 IVPB Last administered on 05:37; Admin Dose 100 MLS/HR; Start 08/27/16 at 22:00 Vancomycin HCl (Vancocin) 100 ml @ 100 mls/hr Q12H IVPB ; Start 08/28/16 at 23: 00 JAYME WALL Aug 28, 2016 11:26
--- NOTE | 2016-08-28 12:54 | CONS ---
Date/Time of Note Date/Time of Note DATE: 08/28/16 TIME: 12:53 Assessment/Plan Assessment/Plan Additional Assessment/Plan Ventilator settings; AC of 12, tidal volume 500, PEEP of 5, 30% FiO2. Assessment recommendations; 1. Patient admitted for UTI and sepsis with significant clinical improvement. 2. Scant right lower lobe infiltrate. 3. Chronic respiratory failure. 4. History of seizures, hypertension, Parkinson's disease, anemia, gout, all appear fairly stable. Continue current treatment. Consultation Date/Type/Reason Admit Date/Time Aug 26, 2016 at 06:53 Initial Consult Date 08/25/16 Type of Consultation: Pulmonary/critical care 24 HR Interval Summary Free Text/Dictation Patient condition remains stable. Remains awake alert. Has remained hemodynamically stable. General exam; elderly male, on ventilator via tracheostomy, awake alert currently in no distress. Exam/Review of Systems Vital Signs Vitals Vital Signs Date Time Temp Pulse Resp B/P Pulse Ox O2 Delivery O2 Flow Rate FiO2 08/28/16 12:35 98.6 78 17 150/69 95 08/28/16 11:35 30 08/26/16 22:00 Mechanical Ventilator Intake and Output 08/27/16 08/27/16 08/28/16 15:00 23:00 07:00 Intake Total 200 ml 1400 ml 978 ml Output Total 2450 ml 650 ml Balance 200 ml -1050 ml 328 ml Exam HEENT examination; supple neck, no JVD. No lymphadenopathy. Midline trachea. No thyromegaly. Tracheostomy in place with clean insertion site. Patient does have multiple carious teeth. Pupils are small bilaterally. Chest examination; diminished but clear vessel. S1-S2 audible, no murmurs. Regular rhythm. Abdomen examination; soft, nontender. No organomegaly. G-tube in place. Bowel sounds audible. Extremity examination; no peripheral edema. PUBLIC SAFETY TELECOMMUNICATOR examination; patient is awake alert follows commands moves all 4 extremities. Results Result Diagram: 08/27/1661008/27/16610 Results 24 hrs Laboratory Tests Test 08/28/16 08:00 Vancomycin Level Trough 16.5 Medications Medications Current Medications Benazepril HCl (Lotensin) 40 mg DAILY GTB Last administered on 08/28/16t 09:18 ; Admin Dose 40 MG; Start 08/26/16 at 09:00 Carbidopa/Levodopa (Sinemet (25/ 100)) 0.5 tab BID GTB Last administered on 09:18; Admin Dose 0.5 TAB; Start 08/25/16 at 21:00 Clonidine (Catapres) 0.1 mg Q6 PRN GTB SBP>160 Last administered on 08/27/16 16:15; Admin Dose 0.1 MG; Start 08/25/16 at 13:30 Ferrous Sulfate (Feosol Liquid Cup) 330 mg BID GTB Last administered on 09:17; Admin Dose 330 MG; Start 08/25/16 at 21:00 Finasteride (Proscar) 5 mg DAILY GTB Last administered on 08/28/16 09:18; Admin Dose 5 MG; Start 08/26/16 at 09:00 Gabapentin (Neurontin) 300 mg BID GTB Last administered on 08/28/16 09:18; Admin Dose 300 MG; Start 08/25/16 at 21:00 Acetaminophen/ Hydrocodone Bitart ([place] (5/325)) 1 tab prn GTB Last administered on 08/27/16 13:54; Admin Dose 1 TAB; Start 08/25/16 at 13:30 Albuterol/ Ipratropium (Duoneb) 3 ml Q2HWA PRN INH WHEEZING AND SOB; Start at 13:30 Lorazepam (Ativan) 0.5 mg Q6 PRN GTB ANXIETY Last administered on 08/27/16 16: 15; Admin Dose 0.5 MG; Start 08/25/16 at 13:30 Magnesium Oxide (Mag-Ox 400) 400 mg QHS GTB Last administered on 08/27/16 22: 10; Admin Dose 400 MG; Start 08/25/16 at 21:00 Multivitamins Therapeutic (Theragran) 1 tab DAILY GTB Last administered on 08/28 09:18; Admin Dose 1 TAB; Start 08/26/16 at 09:00 Ondansetron HCl (Zofran Tab) 4 mg Q6H PRN GTB NAUSEA AND/OR VOMITING; Start at 13:30 Pantoprazole (Protonix Tab) 40 mg DAILY PO Last administered on 08/28/16 09:18 ; Admin Dose 40 MG; Start 08/26/16 at 09:00 Acetaminophen (Tylenol Liquid) 650 mg Q6 PRN NGT FEVER GREATER THAN 100.6; Start 08/25/16 at 13:30 Docusate Sodium (Colace Liquid Cup) 100 mg BID GTB Last administered on 09:17; Admin Dose 100 MG; Start 08/25/16 at 21:00 Miscellaneous Information This patient suarez... PRN PRN XX WOUND CARE; Start 08/27 at 03:00 Imipenem/ Cilastatin Sodium 100 ml @ 100 mls/hr Q8 IVPB Last administered on 05:37; Admin Dose 100 MLS/HR; Start 08/27/16 at 22:00 Vancomycin HCl (Vancocin) 100 ml @ 100 mls/hr Q12H IVPB ; Start 08/28/16 at 23: 00 KARLI RILEY Aug 28, 2016 12:54
[2016-08-28] MEDS: HYDROCODONE/APAP (5/325) TAB GTB SCH ×2 (14:17→21:05)
--- NOTE | 2016-08-28 17:46 | RADRPT ---
PROCEDURE: XR Chest. CLINICAL INDICATION: Cough TECHNIQUE: Anterior chest x-ray. COMPARISON: 07/04/2016 FINDINGS: The exam is limited due to rotated positioning. Tracheostomy tube demonstrates stable and satisfactory position. Metallic plate for anterior fusion lower cervical spine is unchanged from previous exam. Gonzalez rods and pedicle screws transfixing lower thoracic spine, unchanged from previous exam. New patchy infiltrate is seen throughout the right lung. Patchy infiltrate in left lung base unchanged from previous exam. The lungs are clear. No pleural effusion identified. There is no evidence of pneumothorax. The cardiomediastinal silhouette is unremarkable. The soft tissues are normal. Osseous structures are unremarkable. IMPRESSION: 1. New patchy infiltrates throughout the right lung. 2. Mild patchy infiltrate in retrocardiac left lung base, unchanged. 3. Stable and satisfactory position of tracheostomy tube. RPTAT: QQ .Valdez Hernandez MD, Date Time Electronically viewed and signed by .Valdez Hernandez MD, on 08/28/2016 17:46 .M/
--- NOTE | 2016-08-28 19:01 | CONS ---
Date/Time of Note Date/Time of Note DATE: 08/28/16 TIME: 18:56 Assessment/Plan Assessment/Plan Chief Complaint/Hosp Course ID PROGRESS NOTE ABX DAY #4 =>Vanco IV #4 + Primaxin #2 Cefepime #3-> DC'd 08/27 s/p Azactam x1 ED 08/25 24H INTERVAL SUMMARY * Awake, alert, nods head "yes" when asked if he is doing OK, No fevers w/Tmax 99.+ * Admitted w/ acute UTI and evidence of new PNA on CXR * CXR 08/28/16: IMPRESSION: 1. New patchy infiltrates throughout the right lung.2. Mild patchy infiltrate in retrocardiac left lung base, unchanged. * MICRO 08/25 RESULTED: URINE CULTURE Preliminary Organism 1 PSEUDOMONAS AERUGINOSA COLONY COUNT >100,000 CFU/ml P.AERUG M.I.C. RX --------- --- AMIKACIN 16 S CEFEPIME 16 I CEFTAZIDIME 16 I CIPROFLOXACIN >=4 R GENTAMICIN 8 I IMIPENEM 2 S LEVOFLOXACIN >=8 R TOBRAMYCIN <=1 S PHYSICAL EXAMINATION: GENERAL: 81 yo M awake, alert, communicative, NAD, VSS HEENT: Unremarkable NECK: Supple, (+)Trach CHEST: Rise symmetrical, HEART: Pulse RRR ABDOMEN: Soft, non-tender EXTREMITIES: Warm, dry, no edema ID ASSESSMENT 81 yo M /PMHx Parkinson's, Dementia, SZs, HTN, anemia, gout, Trach presented with: 1. Severe sepsis due to UTI and right lower lobe pneumonia with significant improvement * 08/25 BCx (-) 2. ASP PNA vs HCAP 3. (+)PSAR UTI -> Sensitive to Primaxin, Intermediate to Cefepime 4. BPH 5. Suspect obstructive uropathy risks factors: (+)BPH w/suspected neurogenic bladder INVASIVES: PIV, ABX ALLERGY: KNDA CURRENT ABX: #4 =>Vanco IV#4 + Primaxin #2 Cefepime -> Dc 08/27 s/p Azactam x1 08/25 ED ID RECOMMENDATIONS 1. Continue current ABX for concern worsening HCAP, ASP PNA on admission from SNF 2. PSAR UTI -> Sensitive to Primaxin 3. Will continue to follow . Problems: Consultation Date/Type/Reason Admit Date/Time Aug 26, 2016 at 06:53 Initial Consult Date 08/25/16 Type of Consultation: ID Exam/Review of Systems Vital Signs Vitals Vital Signs Date Time Temp Pulse Resp B/P Pulse Ox O2 Delivery O2 Flow Rate FiO2 08/28/16 17:14 63 20 100 30 08/28/16 16:05 97.9 120/59 08/26/16 22:00 Mechanical Ventilator Intake and Output 08/27/16 08/27/16 08/28/16 15:00 23:00 07:00 Intake Total 200 ml 1400 ml 978 ml Output Total 2450 ml 650 ml Balance 200 ml -1050 ml 328 ml Results Result Diagram: 08/27/16 0611 08/27/16 0611 Results 24 hrs Laboratory Tests Test 08/28/16 08:00 Vancomycin Level Trough 16.5 Medications Medications Current Medications Benazepril HCl (Lotensin) 40 mg DAILY GTB Last administered on 08/28/16 09:18 ; Admin Dose 40 MG; Start 08/26/16 at 09:00 Carbidopa/Levodopa (Sinemet ()) 0.5 tab BID GTB Last administered on 09:18; Admin Dose 0.5 TAB; Start 08/25/16 at 21:00 Clonidine (Catapres) 0.1 mg Q6 PRN GTB SBP>160 Last administered on 08/27/16 16:15; Admin Dose 0.1 MG; Start 08/25/16 at 13:30 Ferrous Sulfate (Feosol Liquid Cup) 330 mg BID GTB Last administered on 09:17; Admin Dose 330 MG; Start 08/25/16 at 21:00 Finasteride (Proscar) 5 mg DAILY GTB Last administered on 08/28/16 09:18; Admin Dose 5 MG; Start 08/26/16 at 09:00 Gabapentin (Neurontin) 300 mg BID GTB Last administered on 08/28/16 09:18; Admin Dose 300 MG; Start 08/25/16 at 21:00 Acetaminophen/ Hydrocodone Bitart ([place] (5/325)) 1 tab prn GTB Last administered on 08/28/16 14:17; Admin Dose 1 TAB; Start 08/25/16 at 13:30 Albuterol/ Ipratropium (Duoneb) 3 ml Q2HWA PRN INH WHEEZING AND SOB; Start at 13:30 Lorazepam (Ativan) 0.5 mg Q6 PRN GTB ANXIETY Last administered on 08/27/16 16: 15; Admin Dose 0.5 MG; Start 08/25/16 at 13:30 Magnesium Oxide (Mag-Ox 400) 400 mg QHS GTB Last administered on 08/27/16 22: 10; Admin Dose 400 MG; Start 08/25/16 at 21:00 Multivitamins Therapeutic (Theragran) 1 tab DAILY GTB Last administered on 08/28 09:18; Admin Dose 1 TAB; Start 08/26/16 at 09:00 Ondansetron HCl (Zofran Tab) 4 mg Q6H PRN GTB NAUSEA AND/OR VOMITING; Start at 13:30 Pantoprazole (Protonix Tab) 40 mg DAILY PO Last administered on 08/28/16 09:18 ; Admin Dose 40 MG; Start 08/26/16 at 09:00 Acetaminophen (Tylenol Liquid) 650 mg Q6 PRN NGT FEVER GREATER THAN 100.6; Start 08/25/16 at 13:30 Docusate Sodium (Colace Liquid Cup) 100 mg BID GTB Last administered on 09:17; Admin Dose 100 MG; Start 08/25/16 at 21:00 Miscellaneous Information This patient suarez... PRN PRN XX WOUND CARE; Start 08/27 at 03:00 Imipenem/ Cilastatin Sodium 100 ml @ 100 mls/hr Q8 IVPB Last administered on 14:17; Admin Dose 100 MLS/HR; Start 08/27/16 at 22:00 Vancomycin HCl (Vancocin) 100 ml @ 100 mls/hr Q12H IVPB ; Start 08/28/16 at 23: 00 MEAGAN LOPES NP Aug 28, 2016 19:01
[2016-08-28] MEDS: MAGNESIUM OXIDE 400 MG TAB GTB SCH (20:06)
[2016-08-28] MEDS: VANCOMYCIN 500MG/NS (PMX) 100 ML IVPB SCH (23:08)
[2016-08-29] VITALS (32 sets, daily range): BP systolic 98–214; BP diastolic 54–135; PULSE 56–142; RESP 12–34
[2016-08-29] MEDS: IMIPENEM-CILAST 500MG IV (PMX) 100 ML IVPB SCH ×3 (05:38→22:22)
[2016-08-29 06:07] LABS: ADD SCAN DIFF NO
[2016-08-29 06:19] LABS: BASOPHILS % 0.3 % (0.0-2.0); EOSINOPHILS # 0.7 10^3/ul (0.0-0.5); EOSINOPHILS % 9.4 % (0.0-7.0); HEMATOCRIT 27.7 % (42.0-52.0); HEMOGLOBIN 8.5 g/dl (14.0-18.0); LYMPHOCYTES # 2.1 10^3/ul (0.8-2.9); LYMPHOCYTES % 29.1 % (15.0-51.0); MEAN CORPUSCULAR HGB CONC 30.7 g/dl (32.0-37.0); MEAN CORPUSCULAR VOLUME 94.5 fl (82.0-101.0); MEAN PLATELET VOLUME 9.9 fl (7.4-10.4); MONOCYTE # 0.9 10^3/ul (0.3-0.9); NEUTROPHIL # 3.6 10^3/ul (1.6-7.5); NEUTROPHILS % 48.8 % (39.0-77.0); PLATELET COUNT 292 10^3/UL (140-415); RED BLOOD COUNT 2.93 10^6/ul (4.70-6.10); RED CELL DISTRIBUTION WIDTH 14.3 % (11.5-14.5); WHITE BLOOD COUNT 7.4 10^3/ul (4.8-10.8)
[2016-08-29 06:36] LABS: CREATININE 0.53 mg/dl (0.61-1.24)
[2016-08-29 06:37] LABS: CALCIUM 8.3 mg/dl (8.4-10.2)
[2016-08-29] MEDS: PANTOPRAZOLE (EC) 40 MG TAB PO SCH (10:04)
[2016-08-29] MEDS: FERROUS SULFATE 60 MG/ML 5ML CUP GTB SCH ×2 (10:04→20:56)
[2016-08-29] MEDS: CARBIDOPA/LEVODOPA (25/100) TAB GTB SCH ×2 (10:04→20:57)
[2016-08-29] MEDS: MULTIVITAMINS THERAPEUTIC TAB GTB SCH (10:04)
[2016-08-29] MEDS: DOCUSATE SODIUM 10 MG/ML (10ML CUP) GTB SCH ×2 (10:04→20:56)
[2016-08-29] MEDS: FINASTERIDE 5 MG TAB GTB SCH (10:05)
[2016-08-29] MEDS: BENAZEPRIL 40 MG TAB GTB SCH (10:05)
[2016-08-29] MEDS: GABAPENTIN 300 MG CAP GTB SCH ×2 (10:05→20:56)
[2016-08-29] MEDS: VANCOMYCIN 500MG/NS (PMX) 100 ML IVPB SCH ×2 (10:13→23:54)
[2016-08-29] MEDS: HYDROCODONE/APAP (5/325) TAB GTB SCH ×2 (13:17→13:30)
--- NOTE | 2016-08-29 15:16 | PN ---
DATE: SUBJECTIVE: No acute changes. The patient is alert, looks comfortable, no fevers. WBC today 7.4, platelets 292, no shift, no bands. BUN 21, creatinine 0.53. MICROBIOLOGY: Urine culture on admission grew Pseudomonas aeruginosa, intermittently sensitive to c efepime, Fortaz, resistant to Rocephin and Levaquin. INDWELLINGS: Trach, PEG, [place]. ANTIMICROBIALS: 1. Vancomycin. 2. Imipenem. DIAGNOSTICS: Chest x-ray yesterday revealed new patchy infiltrates throughout the right lung. and mild patchy infiltrate in the left lung base, unchanged. PHYSICAL EXAMINATION: GENERAL: Fragile, elderly man who is awake, in no distress. HEENT: Head atraumatic, normocephalic. Sclerae anicteric. Buccal mucosa pink, dry. NECK: Supple. CHEST: Rise symmetrical. Breath sounds diminished to bases. HEART: S1, S2. ABDOMEN: Soft, bowel tones present. EXTREMITIES: Without cyanosis. ASSESSMENT: 1. Systemic inflammatory response syndrome with resolving leukocytosis. 2. Healthcare-associated pneumonia. 3. Pseudomonas aeruginosa urinary tract infection. 4. Chronic respiratory failure. 5. Dysphagia. PLAN: The patient remains stable. Continue present care, antibiotics, pulmonary toilet. Dictated By: MARI GOODE GAMMA FACILITIES OPERATOR for NEMO ESTEVES/CHITRA Conf#: [id number] DID#: [id number]
[2016-08-29 17:05] LABS: Allen Test ACCEPTAB; Arterial Base Excess 3.8 mmol/L (-3.0-3); Arterial COHb 0.3 % (0.0-3.0); Arterial Fraction of Oxyhgb 98.8 % (93.0-99.0); Arterial HCO3 30.1 mmol/L (22.0-26.0); Arterial MetHb 0.4 % (0.0-1.5); Arterial Total Hemglobin 13.1 g/dl (12.0-18.0); MODE VENT - AC
--- NOTE | 2016-08-29 17:11 | RADRPT ---
PROCEDURE: XR Chest. CLINICAL INDICATION: Shortness of breath. TECHNIQUE: Single frontal view. COMPARISON: 08/28/2016. FINDINGS: The tracheostomy tube is in satisfactory position. There has been prior thoracic spine surgery with multiple pedicle screws and connecting rods. Mild patchy air space disease is present in the right lung, unchanged. The lungs are otherwise андрей r. The heart size is normal. There is calcification in the aorta consistent with atherosclerosis. The re is no pleural effusion. There is no pneumothorax. IMPRESSION: 1. No significant change from 08/28/2016. RPTAT: QQ .Андрей Damon MD, MD Date Time Electronically viewed and signed by .Андрей Damon MD, on 08/29/2016 17:11 .R/
[2016-08-29] MEDS ORDERED: PROPOFOL 100 ML ONE (18:40)
[2016-08-29] MEDS: PROPOFOL 100 ML IV SCH (18:47)
--- NOTE | 2016-08-29 19:05 | PN ---
Date/Time of Note Date/Time of Note DATE: 08/29/16 TIME: 18:59 Assessment/Plan VTE Prophylaxis VTE Prophylaxis Intervention: SCD's Lines/Catheters IV C[facility]ter Type (from [facility] [place] [employer] line still needed: Yes Urinary Cath still in place: Yes Reason Cath still needed: urinary retention Assessment/Plan Chief Complaint/Hosp Course Assessment/Plan -Sepsis secondary to pneumonia and UTI, continue antibiotics per ID, Dr. Shine is following infection disease consultation. - HCAP -Pseudomonas UTI. -Ventilator dependent respiratory failure with tracheostomy, is following in pulmonology consultation, continue bronchodilators and ventilatory support. -Prerenal azotemia - Cervical myelopathy, status post cervical spine and upper thoracic spine surgery. 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 -Dysphagia with PEG. -HTN -CHF -GOUT -Cervical Stenosis -BPH -Sacral and heel pressure ulcers - GERD Further recommendations based on clinical course. Plan of care discussed with Dr. Manriquez. Problems: Subjective 24 Hr Interval Summary Free Text/Dictation Patient is tachypneic on ventilatory support complains of shortness of breath tachycardic, patient was diminished air entry bilaterally and rhonchi. Blood- tinged secretions from the trach. X-ray is ordered stat. Transfer patient to ICU Exam/Review of Systems Vital Signs Vitals Vital Signs Date Time Temp Pulse Resp B/P Pulse Ox O2 Delivery O2 Flow Rate FiO2 08/29/16 18:20 142 08/29/16 18:11 27 99 08/29/16 17:15 30 08/29/16 17:00 190/112 08/29/16 12:06 98.0 08/26/16 22:00 Mechanical Ventilator Intake and Output 08/28/16 08/28/16 08/29/16 15:00 23:00 07:00 Intake Total 970 ml 900 ml Output Total 650 ml 650 ml Balance 320 ml 250 ml Exam Constitutional: alert, frail Psych: confusion Head: atraumatic, normocephalic Eyes: nl conjunctiva ENMT: nl external ears & nose Neck: other (Tracheostomy) Respiratory: crackles/rales, diminished breath sounds, other (On vent support) Cardiovascular: nl pulses, regular rate and rhythm Gastrointestinal: non-tender, other (G-tube) Musculoskeletal: nl extremities to inspection Extremities: normal pulses Neurological: confused, other (Quadriparesis) Results Result Diagram: 08/29/16 0545 08/29/16 0545 Results 24 hrs Laboratory Tests Test 08/29/16 05:45 08/29/16 16:42 White Blood Count 7.4 # Red Blood Count 2.93 L Hemoglobin 8.5 L Hematocrit 27.7 L Mean Corpuscular Volume 94.5 Mean Corpuscular Hemoglobin 29.0 Mean Corpuscular Hemoglobin Concent 30.7 L Red Cell Distribution Width 14.3 Platelet Count 292 Mean Platelet Volume 9.9 Neutrophils % 48.8 Lymphocytes % 29.1 Monocytes % 12.0 H Eosinophils % 9.4 H Basophils % 0.3 Nucleated Red Blood Cells % 0.0 Neutrophils # 3.6 Lymphocytes # 2.1 Monocytes # 0.9 Eosinophils # 0.7 H Basophils # 0.0 Nucleated Red Blood Cells # 0.0 Sodium Level 140 Potassium Level 4.0 Chloride Level 101 Carbon Dioxide Level 32 H Anion Gap 11 Blood Urea Nitrogen 21 H Creatinine 0.53 L Glucose Level 116 Calcium Level 8.3 L Blood Gas Specimen Source Blood arterial Arterial Blood Date Drawn 08/29/2016 4:53:33 PM Arterial Blood pH (Temp corrected) 7.376 Arterial Blood pCO2 (Temp correct) 52.5 H Arterial Blood pO2 (Temp corrected) 285.7 H Arterial Blood HCO3 30.1 H Arterial Blood Base Excess 3.8 H Arterial Blood Oxygen Saturation 99.5 Sha Test ACCEPTAB Arterial Blood Gas Puncture Site Left Radial Arterial Blood Carboxyhemoglobin 0.3 Arterial Blood Methemoglobin 0.4 Oxyhemoglobin Percent 98.8 Total Hemoglobin 13.1 Blood Gas Temperature 37.0 Blood Gas Respiration Rate 12.0 Blood Gas Actual Respiration Rate 26 Blood Gas Modality VENT - AC FiO2 30.0 Blood Gas Tidal Volume 500.0 Blood Gas Low PEEP Setting 5.0 Blood Gas Critical Value Read Back Luis ENCISO Blood Gas Notified Whom Aime Blood Gas Notified Time 08/29/2016 5:04:42 PM Medications Medications Current Medications Benazepril HCl (Lotensin) 40 mg DAILY GTB Last administered on 08/29/16 10:05; Admin Dose 40 MG; Start 08/26/16 at 09:00 Carbidopa/Levodopa (Sinemet (25/ 100)) 0.5 tab BID GTB Last administered on 08/29 10:04; Admin Dose 0.5 TAB; Start 08/25/16 at 21:00 Clonidine (Catapres) 0.1 mg Q6 PRN GTB SBP>160 Last administered on 08/27/16 16:15; Admin Dose 0.1 MG; Start 08/25/16 at 13:30 Ferrous Sulfate (Feosol Liquid Cup) 330 mg BID GTB Last administered on 10:04; Admin Dose 330 MG; Start 08/25/16 at 21:00 Finasteride (Proscar) 5 mg DAILY GTB Last administered on 08/29/16 10:05; Admin Dose 5 MG; Start 08/26/16 at 09:00 Gabapentin (Neurontin) 300 mg BID GTB Last administered on 08/29/16 10:05; Admin Dose 300 MG; Start 08/25/16 at 21:00 Acetaminophen/ Hydrocodone Bitart ([place] (5/325)) 1 tab prn GTB Last administered on 08/29/16 13:30; Admin Dose 1 TAB; Start 08/25/16 at 13:30 Albuterol/ Ipratropium (Duoneb) 3 ml Q2HWA PRN INH WHEEZING AND SOB; Start at 13:30 Lorazepam (Ativan) 0.5 mg Q6 PRN GTB ANXIETY Last administered on 08/27/16 16: 15; Admin Dose 0.5 MG; Start 08/25/16 at 13:30 Magnesium Oxide (Mag-Ox 400) 400 mg QHS GTB Last administered on 08/28/16 20: 06; Admin Dose 400 MG; Start 08/25/16 at 21:00 Multivitamins Therapeutic (Theragran) 1 tab DAILY GTB Last administered on 10:04; Admin Dose 1 TAB; Start 08/26/16 at 09:00 Ondansetron HCl (Zofran Tab) 4 mg Q6H PRN GTB NAUSEA AND/OR VOMITING; Start at 13:30 Pantoprazole (Protonix Tab) 40 mg DAILY PO Last administered on 08/29/16 10:04 ; Admin Dose 40 MG; Start 08/26/16 at 09:00 Acetaminophen (Tylenol Liquid) 650 mg Q6 PRN NGT FEVER GREATER THAN 100.6; Start 08/25/16 at 13:30 Docusate Sodium (Colace Liquid Cup) 100 mg BID GTB Last administered on 10:04; Admin Dose 100 MG; Start 08/25/16 at 21:00 Miscellaneous Information This patient suarez... PRN PRN XX WOUND CARE; Start 08/27 at 03:00 Imipenem/ Cilastatin Sodium 100 ml @ 100 mls/hr Q8 IVPB Last administered on 13:17; Admin Dose 100 MLS/HR; Start 08/27/16 at 22:00 Vancomycin HCl 100 ml @ 100 mls/hr Q12H IVPB Last administered on 08/29/16 10: 13; Admin Dose 100 MLS/HR; Start 08/28/16 at 23:00 Propofol (Diprivan) 100 ml @ 1.95 mls/hr Q12H IV Last administered on 18:47; Admin Dose 3.9 MLS/HR; Start 08/29/16 at 19:00 MARCO DOE August 29, 2016 19:04
[2016-08-29] MEDS: MAGNESIUM OXIDE 400 MG TAB GTB SCH (20:57)
[2016-08-30] VITALS (35 sets, daily range): BP systolic 106–175; BP diastolic 47–100; PULSE 45–81; RESP 12–21
[2016-08-30] MEDS: IMIPENEM-CILAST 500MG IV (PMX) 100 ML IVPB SCH ×3 (06:01→21:19)
[2016-08-30] MEDS: PROPOFOL 100 ML IV SCH (07:00)
[2016-08-30 07:05] LABS: ADD SCAN DIFF NO
[2016-08-30 07:15] LABS: BASOPHILS % 0.3 % (0.0-2.0); EOSINOPHILS # 0.4 10^3/ul (0.0-0.5); EOSINOPHILS % 3.6 % (0.0-7.0); HEMOGLOBIN 8.1 g/dl (14.0-18.0); LYMPHOCYTES # 2.8 10^3/ul (0.8-2.9); LYMPHOCYTES % 23.9 % (15.0-51.0); MEAN CORPUSCULAR HEMOGLOBIN 29.5 pg (29.0-33.0); MEAN CORPUSCULAR HGB CONC 31.2 g/dl (32.0-37.0); MEAN CORPUSCULAR VOLUME 94.5 fl (82.0-101.0); MEAN PLATELET VOLUME 10.1 fl (7.4-10.4); NEUTROPHIL # 7.5 10^3/ul (1.6-7.5); NEUTROPHILS % 63.8 % (39.0-77.0); PLATELET COUNT 308 10^3/UL (140-415); RED BLOOD COUNT 2.75 10^6/ul (4.70-6.10); RED CELL DISTRIBUTION WIDTH 14.6 % (11.5-14.5); WHITE BLOOD COUNT 11.8 10^3/ul (4.8-10.8)
[2016-08-30 07:23] LABS: POTASSIUM 3.8 mmol/L (3.5-5.1)
[2016-08-30 07:26] LABS: CREATININE 0.54 mg/dl (0.61-1.24)
[2016-08-30 07:27] LABS: CALCIUM 8.5 mg/dl (8.4-10.2)
[2016-08-30 08:11] LABS: AADO2 Arterial 33.2 mmHg (7.0-24.0); Allen Test ACCEPTAB; Arterial Base Excess 4.9 mmol/L (-3.0-3); Arterial COHb 0.3 % (0.0-3.0); Arterial Fraction of Oxyhgb 97.6 % (93.0-99.0); Arterial HCO3 30.2 mmol/L (22.0-26.0); Arterial MetHb 0.4 % (0.0-1.5); Arterial Total Hemglobin 12.2 g/dl (12.0-18.0); MODE VENT - PC
[2016-08-30] MEDS: BENAZEPRIL 40 MG TAB GTB SCH (09:00)
[2016-08-30] MEDS: FERROUS SULFATE 60 MG/ML 5ML CUP GTB SCH ×2 (09:00→20:05)
[2016-08-30] MEDS: PANTOPRAZOLE (EC) 40 MG TAB PO SCH (09:00)
[2016-08-30] MEDS: GABAPENTIN 300 MG CAP GTB SCH ×2 (09:00→20:05)
[2016-08-30] MEDS: MULTIVITAMINS THERAPEUTIC TAB GTB SCH (09:00)
[2016-08-30] MEDS: CARBIDOPA/LEVODOPA (25/100) TAB GTB SCH ×2 (09:00→20:05)
[2016-08-30] MEDS ORDERED: LIDOCAINE 1% (MPF) 5 ML VIAL SC ONE ×2 (09:00→11:00)
[2016-08-30] MEDS: FINASTERIDE 5 MG TAB GTB SCH (09:00)
[2016-08-30] MEDS: DOCUSATE SODIUM 10 MG/ML (10ML CUP) GTB SCH ×2 (09:00→20:04)
--- NOTE | 2016-08-30 09:21 | CONS ---
Date/Time of Note Date/Time of Note DATE: 08/30/16 TIME: :17 Consult Date/Type/Reason Admit Date/Time Aug 26, 2016 at 06:53 Initial Consult Date 08/25/16 Type of Consultation: pulmonary ICU Subjective Patient was transferred to intensive care unit yesterday for increasing hypoxemia and increased peak inspiratory pressures and respiratory distress. He was placed on propofol with improvement in his respiratory dynamics. This morning is awake alert comfortable no evidence of respiratory distress on low- dose propofol. Objective Vital Signs Date Time Temp Pulse Resp B/P Pulse Ox O2 Delivery O2 Flow Rate FiO2 08/30/16 08:00 98.4 65 12 137/68 100 Mechanical Ventilator 08/30/16 05:59 30 Intake and Output 08/29/16 08/29/16 08/30/16 15:00 23:00 07:00 Intake Total 1023.40 ml 127.30 ml Output Total 1440 ml 320 ml Balance -416.60 ml -192.70 ml Exam PHYSICAL EXAMINATION GENERAL: Elderly gentleman, tracheostomy on mechanical ventilation VITAL SIGNS: see below. HEENT: Pupils equal, round, and reactive to light. Tracheostomy site clean and intact. CARDIAC: S1, S2, 2/6 systolic ejection murmur CHEST: Diminished air entry bilaterally. ABDOMEN: Mildly distended. Bowel sounds present no guarding or rebound G-tube intact EXTREMITIES: No cyanosis, clubbing or edema. NEUROLOGIC: No focal deficits. Results/Medications Result Diagram: 08/30/16 0600 08/30/16 0600 Results 24 hrs Chest x-ray Patchy right-sided infiltrates Laboratory Tests Test 08/29/16 16:42 08/29/16 19:20 08/30/16 06:00 08/30/16 07:00 Blood Gas Specimen Source Blood arterial Blood arterial Arterial Blood Date Drawn 08/29/2016 4:53:33 PM 08/30/2016 7:29:46 AM Arterial Blood pH (Temp corrected) 7.376 7.420 Arterial Blood pCO2 (Temp correct) 52.5 H 47.6 H Arterial Blood pO2 (Temp corrected) 285.7 H 124.8 H Arterial Blood HCO3 30.1 H 30.2 H Arterial Blood Base Excess 3.8 H 4.9 H Arterial Blood Oxygen Saturation 99.5 98.3 Sha Test ACCEPTAB ACCEPTAB Arterial Blood Gas Puncture Site Left Radial Left Radial Arterial Blood Carboxyhemoglobin 0.3 0.3 Arterial Blood Methemoglobin 0.4 0.4 Oxyhemoglobin Percent 98.8 97.6 Total Hemoglobin 13.1 12.2 Blood Gas Temperature 37.0 37.0 Blood Gas Respiration Rate 12.0 12.0 Blood Gas Actual Respiration Rate 26 12 Blood Gas Modality VENT - AC VENT - PC FiO2 30.0 30.0 Blood Gas Tidal Volume 500.0 Blood Gas Low PEEP Setting 5.0 5.0 Blood Gas Critical Value Read Back Luis ENCISO Blood Gas Notified Whom Aime CORLEY Blood Gas Notified Time 08/29/2016 5:04:42 PM 08/30/2016 8:11:46 AM Magnesium Level 1.7 White Blood Count 11.8 #H Red Blood Count 2.75 L Hemoglobin 8.1 L Hematocrit 26.0 L Mean Corpuscular Volume 94.5 Mean Corpuscular Hemoglobin 29.5 Mean Corpuscular Hemoglobin Concent 31.2 L Red Cell Distribution Width 14.6 H Platelet Count 308 Mean Platelet Volume 10.1 Neutrophils % 63.8 Lymphocytes % 23.9 Monocytes % 8.0 Eosinophils % 3.6 Basophils % 0.3 Nucleated Red Blood Cells % 0.0 Neutrophils # 7.5 Lymphocytes # 2.8 Monocytes # 1.0 H Eosinophils # 0.4 Basophils # 0.0 Nucleated Red Blood Cells # 0.0 Sodium Level 139 Potassium Level 3.8 Chloride Level 102 Carbon Dioxide Level 30 Anion Gap 11 Blood Urea Nitrogen 23 H Creatinine 0.54 L Glucose Level 82 Calcium Level 8.5 Blood Gas A-a O2 Differential 33.2 H Blood Gas Inspiratory Time 0.90 Blood Gas Inspiratory Pressure 25.0 Medications Current Medications Benazepril HCl (Lotensin) 40 mg DAILY GTB Last administered on 08/29/16 10:05; Admin Dose 40 MG; Start 08/26/16 at 09:00 Carbidopa/Levodopa (Sinemet (25/ 100)) 0.5 tab BID GTB Last administered on 08/29 20:57; Admin Dose 0.5 TAB; Start 08/25/16 at 21:00 Clonidine (Catapres) 0.1 mg Q6 PRN GTB SBP>160 Last administered on 08/27/16 16:15; Admin Dose 0.1 MG; Start 08/25/16 at 13:30 Ferrous Sulfate (Feosol Liquid Cup) 330 mg BID GTB Last administered on 20:56; Admin Dose 330 MG; Start 08/25/16 at 21:00 Finasteride (Proscar) 5 mg DAILY GTB Last administered on 08/29/16 10:05; Admin Dose 5 MG; Start 08/26/16 at 09:00 Gabapentin (Neurontin) 300 mg BID GTB Last administered on 08/29/16 20:56; Admin Dose 300 MG; Start 08/25/16 at 21:00 Acetaminophen/ Hydrocodone Bitart ([place] (5/325)) 1 tab prn GTB Last administered on 08/29/16 13:30; Admin Dose 1 TAB; Start 08/25/16 at 13:30 Albuterol/ Ipratropium (Duoneb) 3 ml Q2HWA PRN INH WHEEZING AND SOB; Start at 13:30 Lorazepam (Ativan) 0.5 mg Q6 PRN GTB ANXIETY Last administered on 08/27/16 16: 15; Admin Dose 0.5 MG; Start 08/25/16 at 13:30 Magnesium Oxide (Mag-Ox 400) 400 mg QHS GTB Last administered on 08/29/16 20:57 ; Admin Dose 400 MG; Start 08/25/16 at 21:00 Multivitamins Therapeutic (Theragran) 1 tab DAILY GTB Last administered on 10:04; Admin Dose 1 TAB; Start 08/26/16 at 09:00 Ondansetron HCl (Zofran Tab) 4 mg Q6H PRN GTB NAUSEA AND/OR VOMITING; Start at 13:30 Pantoprazole (Protonix Tab) 40 mg DAILY PO Last administered on 08/29/16 10:04 ; Admin Dose 40 MG; Start 08/26/16 at 09:00 Acetaminophen (Tylenol Liquid) 650 mg Q6 PRN NGT FEVER GREATER THAN 100.6; Start 08/25/16 at 13:30 Docusate Sodium (Colace Liquid Cup) 100 mg BID GTB Last administered on 20:56; Admin Dose 100 MG; Start 08/25/16 at 21:00 Miscellaneous Information This patient suarez... PRN PRN XX WOUND CARE; Start 08/27 at 03:00 Imipenem/ Cilastatin Sodium 100 ml @ 100 mls/hr Q8 IVPB Last administered on 06:01; Admin Dose 100 MLS/HR; Start 08/27/16 at 22:00 Vancomycin HCl 100 ml @ 100 mls/hr Q12H IVPB Last administered on 08/29/16 23: 54; Admin Dose 100 MLS/HR; Start 08/28/16 at 23:00 Propofol (Diprivan) 100 ml @ 1.95 mls/hr Q12H IV Last administered on 18:47; Admin Dose 3.9 MLS/HR; Start 08/29/16 at 19:00 Miscellaneous Information (*Rx Drug Level Order Reminder*) VANCO TR LEVEL PRIOR... ONCE ONCE XX ; Start 08/30/16 at 10:00; Stop 08/30/16 at 10:01 Assessment/Plan Chief Complaint/Hosp Course Assessment 1. Severe sepsis 2. Vent dependent respiratory failure, with acute on chronic hypoxemic respiratory failure 3. Healthcare associated pneumonia 4. History of Parkinson's disease 5. Anemia likely of chronic disease 6. Dysphagia with G-tube Plan 1. Continue mechanical ventilation, placed back on volume control ventilation 2. PICC line placement 3. Antibiotics per primary team 4. Monitor H&H consider transfusion 1 unit packed red blood cells 5. Wean off sedation 6. Continue tube feeding as tolerated 7. DVT and GI prophylaxis Disposition Transfer to telemetry once weaned off propofol. Problems: IN[facility] LONDON MD, [facility] August 30, 2016 09:21
[2016-08-30] MEDS: VANCOMYCIN 500MG/NS (PMX) 100 ML IVPB SCH (11:48)
--- NOTE | 2016-08-30 11:53 | PN ---
DATE: 08/30/2016 SUBJECTIVE: The patient was transferred yesterday to ICU secondary to trach problems and respirator y distress, currently stable. No fevers, awake, in no distress. VITAL SIGNS: Temperature 98.4, pulse 65, respirations 12, blood pressure 137/68, saturation 100 on 30%. LABORATORY DATA: WBC 11.8, H and H 8.1 and 26, platelets 308, no shift, no bands. BUN 23, creatini ne 0.54. ANTIMICROBIALS: Patient is on: 1. Vancomycin. 2. Imipenem. INDWELLINGS: Trach, PEG, Ohbbs. PHYSICAL EXAMINATION: GENERAL: This is a fragile, well-developed, chronically ill-appearing, elderly man who is awake, in no distress. HEENT: Head atraumatic, normocephalic. Sclerae anicteric. Buccal mucosa dry. NECK: Supple. Tracheostomy present. CHEST: Rise symmetrical. Breath sounds with scattered rhonchi. HEART: S1, S2. ABDOMEN: Soft, bowel tones present. EXTREMITIES: Without cyanosis. ASSESSMENT: 1. Acute on chronic respiratory failure. 2. Healthcare-associated pneumonia. 3. Pseudomonas aeruginosa urinary tract infection. 4. Systemic inflammatory response syndrome with leukocytosis. 5. Dysphagia. PLAN: The patient remains stable. Pulmonary on case. He is on appropriate antimicrobials, which w e will continue. Dictated By: MARI GOODE QUALITY CONTROL OPERATOR for NEMO ESTEVES/CHITRA Conf#: [id number] DID#: [id number]
--- NOTE | 2016-08-30 11:57 | PN ---
Date/Time of Note Date/Time of Note DATE: 08/30/16 TIME: 11:55 Assessment/Plan VTE Prophylaxis VTE Prophylaxis Intervention: SCD's Lines/Catheters IV Catheter Type (from Nrs): Peripheral IV Urinary Cath still in place: Yes Reason Cath still needed: urinary retention Assessment/Plan Chief Complaint/Hosp Course Assessment/Cora -Sepsis secondary to pneumonia and UTI, continue antibiotics per ID, Dr. Shine is following infection disease consultation. - HCAP -Pseudomonas UTI. -Ventilator dependent respiratory failure with tracheostomy, is following in pulmonology consultation, continue bronchodilators and ventilatory support. -Prerenal azotemia - Cervical myelopathy, status post cervical spine and upper thoracic spine surgery. 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 -Dysphagia with PEG. -HTN -CHF -GOUT -Cervical Stenosis -BPH -Sacral and heel pressure ulcers - GERD Further recommendations based on clinical course. Plan of care discussed with Dr. Manriquez. Problems: Subjective 24 Hr Interval Summary Free Text/Dictation Patient was transferred to ICU last night for acute hypoxemic respiratory failure on chronic vent, patient is currently sedated, no acute distress, continues on ventilatory support, continue to monitor in ICU. Exam/Review of Systems Vital Signs Vitals Vital Signs Date Time Temp Pulse Resp B/P Pulse Ox O2 Delivery O2 Flow Rate FiO2 08/30/16 09:00 69 12 138/78 100 Mechanical Ventilator 08/30/16 08:55 30 08/30/16 08:00 98.4 Intake and Output 08/29/16 08/29/16 08/30/16 15:00 23:00 07:00 Intake Total 1023.40 ml 127.30 ml Output Total 1440 ml 420 ml Balance -416.60 ml -292.70 ml Exam Constitutional: alert, frail Psych: confusion Head: atraumatic, normocephalic Eyes: nl conjunctiva ENMT: nl external ears & nose Neck: other (Tracheostomy) Respiratory: crackles/rales, diminished breath sounds, other (On vent support) Cardiovascular: nl pulses, regular rate and rhythm Gastrointestinal: non-tender, other (G-tube) Musculoskeletal: nl extremities to inspection Extremities: normal pulses Neurological: confused, other (Quadriparesis) Results Result Diagram: 08/30/16 0600 08/30/16 0600 Results 24 hrs Laboratory Tests Test 08/29/16 16:42 08/29/16 19:20 08/30/16 06:00 08/30/16 07:00 Blood Gas Specimen Source Blood arterial Blood arterial Arterial Blood Date Drawn 08/29/2016 4:53:33 PM 08/30/2016 7:29:46 AM Arterial Blood pH (Temp corrected) 7.376 7.420 Arterial Blood pCO2 (Temp correct) 52.5 H 47.6 H Arterial Blood pO2 (Temp corrected) 285.7 H 124.8 H Arterial Blood HCO3 30.1 H 30.2 H Arterial Blood Base Excess 3.8 H 4.9 H Arterial Blood Oxygen Saturation 99.5 98.3 Sha Test ACCEPTAB ACCEPTAB Arterial Blood Gas Puncture Site Left Radial Left Radial Arterial Blood Carboxyhemoglobin 0.3 0.3 Arterial Blood Methemoglobin 0.4 0.4 Oxyhemoglobin Percent 98.8 97.6 Total Hemoglobin 13.1 12.2 Blood Gas Temperature 37.0 37.0 Blood Gas Respiration Rate 12.0 12.0 Blood Gas Actual Respiration Rate 26 12 Blood Gas Modality VENT - AC VENT - PC FiO2 30.0 30.0 Blood Gas Tidal Volume 500.0 Blood Gas Low PEEP Setting 5.0 5.0 Blood Gas Critical Value Read Back Luis ENCISO Blood Gas Notified Whom Aime CORLEY Blood Gas Notified Time 08/29/2016 5:04:42 PM 08/30/2016 8:11:46 AM Magnesium Level 1.7 White Blood Count 11.8 #H Red Blood Count 2.75 L Hemoglobin 8.1 L Hematocrit 26.0 L Mean Corpuscular Volume 94.5 Mean Corpuscular Hemoglobin 29.5 Mean Corpuscular Hemoglobin Concent 31.2 L Red Cell Distribution Width 14.6 H Platelet Count 308 Mean Platelet Volume 10.1 Neutrophils % 63.8 Lymphocytes % 23.9 Monocytes % 8.0 Eosinophils % 3.6 Basophils % 0.3 Nucleated Red Blood Cells % 0.0 Neutrophils # 7.5 Lymphocytes # 2.8 Monocytes # 1.0 H Eosinophils # 0.4 Basophils # 0.0 Nucleated Red Blood Cells # 0.0 Sodium Level 139 Potassium Level 3.8 Chloride Level 102 Carbon Dioxide Level 30 Anion Gap 11 Blood Urea Nitrogen 23 H Creatinine 0.54 L Glucose Level 82 Calcium Level 8.5 Blood Gas A-a O2 Differential 33.2 H Blood Gas Inspiratory Time 0.90 Blood Gas Inspiratory Pressure 25.0 Test 08/30/16 10:13 Lactic Acid Level 0.8 Vancomycin Level Trough 15.6 Medications Medications Current Medications Benazepril HCl (Lotensin) 40 mg DAILY GTB Last administered on 08/30/16 09:00; Admin Dose 40 MG; Start 08/26/16 at 09:00 Carbidopa/Levodopa (Sinemet (25/ 100)) 0.5 tab BID GTB Last administered on 08/30 09:00; Admin Dose 0.5 TAB; Start 08/25/16 at 21:00 Clonidine (Catapres) 0.1 mg Q6 PRN GTB SBP>160 Last administered on 08/27/16 16:15; Admin Dose 0.1 MG; Start 08/25/16 at 13:30 Ferrous Sulfate (Feosol Liquid Cup) 330 mg BID GTB Last administered on 09:00; Admin Dose 330 MG; Start 08/25/16 at 21:00 Finasteride (Proscar) 5 mg DAILY GTB Last administered on 08/30/16 09:00; Admin Dose 5 MG; Start 08/26/16 at 09:00 Gabapentin (Neurontin) 300 mg BID GTB Last administered on 08/30/16 09:00; Admin Dose 300 MG; Start 08/25/16 at 21:00 Acetaminophen/ Hydrocodone Bitart ([place] (5/325)) 1 tab prn GTB Last administered on 08/29/16 13:30; Admin Dose 1 TAB; Start 08/25/16 at 13:30 Albuterol/ Ipratropium (Duoneb) 3 ml Q2HWA PRN INH WHEEZING AND SOB; Start at 13:30 Lorazepam (Ativan) 0.5 mg Q6 PRN GTB ANXIETY Last administered on 08/27/16 16: 15; Admin Dose 0.5 MG; Start 08/25/16 at 13:30 Magnesium Oxide (Mag-Ox 400) 400 mg QHS GTB Last administered on 08/29/16 20:57 ; Admin Dose 400 MG; Start 08/25/16 at 21:00 Multivitamins Therapeutic (Theragran) 1 tab DAILY GTB Last administered on 09:00; Admin Dose 1 TAB; Start 08/26/16 at 09:00 Ondansetron HCl (Zofran Tab) 4 mg Q6H PRN GTB NAUSEA AND/OR VOMITING; Start at 13:30 Pantoprazole (Protonix Tab) 40 mg DAILY PO Last administered on 08/30/16 09:00 ; Admin Dose 40 MG; Start 08/26/16 at 09:00 Acetaminophen (Tylenol Liquid) 650 mg Q6 PRN NGT FEVER GREATER THAN 100.6; Start 08/25/16 at 13:30 Docusate Sodium (Colace Liquid Cup) 100 mg BID GTB Last administered on 09:00; Admin Dose 100 MG; Start 08/25/16 at 21:00 Miscellaneous Information This patient suarez... PRN PRN XX WOUND CARE; Start 08/27 at 03:00 Imipenem/ Cilastatin Sodium 100 ml @ 100 mls/hr Q8 IVPB Last administered on 06:01; Admin Dose 100 MLS/HR; Start 08/27/16 at 22:00 Vancomycin HCl 100 ml @ 100 mls/hr Q12H IVPB Last administered on 08/30/16 11: 48; Admin Dose 100 MLS/HR; Start 08/28/16 at 23:00; Stop 08/30/16 at 15:00 Propofol 100 ml @ 1.95 mls/hr Q12H IV Last administered on 08/29/16 18:47; Admin Dose 3.9 MLS/HR; Start 08/29/16 at 19:00 Vancomycin HCl/ Sodium Chloride (Vancocin/NS) 150 ml @ 75 mls/hr Q24H IVPB ; Start 08/31/16 at 06:00 Collagenase (Santyl) 1 applic DAILY TOP ; Start 08/30/16 at 21:00 MARCO DOE August 30, 2016 11:57
--- NOTE | 2016-08-30 17:07 | RADRPT ---
PROCEDURE: XR Chest. CLINICAL INDICATION: Check PICC line position. TECHNIQUE: Single frontal view. COMPARISON: 08/29/2016. FINDINGS: There is a left arm PICC line with the tip in the lower superior vena cava. The tracheostomy tube r emains in satisfactory position. There is a plate and screws in the lower cervical spine. There ar e pedicle screws and connecting rods in the lower thoracic spine. There is mild patchy air space dis ease in the right lung, unchanged. The lungs are otherwise clear. The heart size is normal. There is calcification in the aorta consistent with atherosclerosis. There is no pleural effusion. There is no pneumothorax. IMPRESSION: 1. Satisfactory position of left arm PICC line. 2. No other change from 08/29/2016. RPTAT: QQ .Андрей Damon MD, MD Date Time Electronically viewed and signed by .Андрей Damon MD, MD on 08/30/2016 17:06 .R/
[2016-08-30] MEDS: MAGNESIUM OXIDE 400 MG TAB GTB SCH (20:08)
[2016-08-30] MEDS: COLLAGENASE 30 GM TUBE TOP SCH (20:32)
[2016-08-31] VITALS (34 sets, daily range): BP systolic 118–175; BP diastolic 56–95; PULSE 42–69; RESP 11–20
[2016-08-31 04:42] LABS: ADD SCAN DIFF NO
[2016-08-31 04:53] LABS: BASOPHILS % 0.2 % (0.0-2.0); EOSINOPHILS # 0.5 10^3/ul (0.0-0.5); EOSINOPHILS % 6.1 % (0.0-7.0); HEMATOCRIT 25.8 % (42.0-52.0); HEMOGLOBIN 8.1 g/dl (14.0-18.0); LYMPHOCYTES # 2.1 10^3/ul (0.8-2.9); LYMPHOCYTES % 25.9 % (15.0-51.0); MEAN CORPUSCULAR HEMOGLOBIN 29.5 pg (29.0-33.0); MEAN CORPUSCULAR HGB CONC 31.4 g/dl (32.0-37.0); MEAN CORPUSCULAR VOLUME 93.8 fl (82.0-101.0); MEAN PLATELET VOLUME 9.7 fl (7.4-10.4); MONOCYTE # 0.9 10^3/ul (0.3-0.9); MONOCYTES % 10.9 % (0.0-11.0); NEUTROPHIL # 4.6 10^3/ul (1.6-7.5); NEUTROPHILS % 56.7 % (39.0-77.0); PLATELET COUNT 334 10^3/UL (140-415); RED BLOOD COUNT 2.75 10^6/ul (4.70-6.10); RED CELL DISTRIBUTION WIDTH 14.3 % (11.5-14.5); WHITE BLOOD COUNT 8.2 10^3/ul (4.8-10.8)
[2016-08-31 05:14] LABS: POTASSIUM 3.6 mmol/L (3.5-5.1)
[2016-08-31 05:16] LABS: CREATININE 0.52 mg/dl (0.61-1.24)
[2016-08-31 05:17] LABS: CALCIUM 8.6 mg/dl (8.4-10.2); PHOSPHORUS 3.7 mg/dl (2.5-4.9)
[2016-08-31 05:18] LABS: MAGNESIUM 1.8 mg/dl (1.7-2.5)
[2016-08-31] MEDS: IMIPENEM-CILAST 500MG IV (PMX) 100 ML IVPB SCH ×3 (05:18→22:52)
[2016-08-31] MEDS: VANCOMYCIN 750 MG in SOD CHLORIDE 0.9% 150 ML IVPB SCH (05:20)
[2016-08-31] MEDS: FERROUS SULFATE 60 MG/ML 5ML CUP GTB SCH ×2 (08:44→20:14)
[2016-08-31] MEDS: CARBIDOPA/LEVODOPA (25/100) TAB GTB SCH ×2 (08:44→20:12)
[2016-08-31] MEDS: DOCUSATE SODIUM 10 MG/ML (10ML CUP) GTB SCH ×2 (08:44→20:13)
[2016-08-31] MEDS: PANTOPRAZOLE (EC) 40 MG TAB PO SCH (08:44)
[2016-08-31] MEDS: GABAPENTIN 300 MG CAP GTB SCH ×2 (08:44→20:14)
[2016-08-31] MEDS: BENAZEPRIL 40 MG TAB GTB SCH (08:45)
[2016-08-31] MEDS: FINASTERIDE 5 MG TAB GTB SCH (08:45)
[2016-08-31] MEDS: MULTIVITAMINS THERAPEUTIC TAB GTB SCH (08:45)
--- NOTE | 2016-08-31 09:56 | RADRPT ---
PROCEDURE: XR Chest. CLINICAL INDICATION: CHF TECHNIQUE: An AP view of the chest was obtained. COMPARISON: Chest x-ray dated 08/30/2016 FINDINGS: A tracheostomy tube is in place. There is a left upper extremity PICC line with tip in the mid SVC. There is prominence of the interstitial markings. There are right basilar interstitial opacities. N o pleural effusion or pneumothorax is seen. The cardiomediastinal silhouette is mildly enlarged . Calcifications are seen within the aortic arch. The osseous structures demonstrate postsurgical ivanna nges from thoracolumbar fusion and inferior cervical fusion, partially imaged IMPRESSION: 1. Mild prominence of the interstitial markings, may reflect mild underlying interstitial edema or chronic lung changes. There are right basilar interstitial opacities may reflect mild interstitial e raul or atelectasis. Overall, there is improved aeration of the right lung when compared to the alfredo or examination. 2. Mild cardiomegaly and aortic atherosclerosis. 3. Tubes and lines, as described above. RPTAT: HH .Radha Siddiqui MD, MD Date Time Electronically viewed and signed by .Radha Siddiqui MD, on 08/31/2016 09:56 .G/
--- NOTE | 2016-08-31 10:24 | CONS ---
Date/Time of Note Date/Time of Note DATE: 08/31/16 TIME: 10:23 Consult Date/Type/Reason Admit Date/Time Aug 26, 2016 at 06:53 Initial Consult Date 08/25/16 Type of Consultation: pulmonary ICU Subjective Patient continues to remain stable and alert in the intensive care unit Continues mechanical ventilation with no significant cuff leak not significantly elevated peak inspiratory pressures on volume control ventilation. Objective Vital Signs Date Time Temp Pulse Resp B/P Pulse Ox O2 Delivery O2 Flow Rate FiO2 08/31/16 09:00 53 14 134/77 99 Mechanical Ventilator 08/31/16 08:00 98.6 08/31/16 05:05 30 Intake and Output 08/30/16 08/30/16 08/31/16 15:00 23:00 07:00 Intake Total 190 ml 250 ml Output Total 675 ml 700 ml 550 ml Balance -675 ml -510 ml -300 ml Results/Medications Result Diagram: 08/31/16 0400 08/31/16 0400 Results 24 hrs Chest x-ray Right lower lobe infiltrate Laboratory Tests Test 08/31/16 04:00 White Blood Count 8.2 # Red Blood Count 2.75 L Hemoglobin 8.1 L Hematocrit 25.8 L Mean Corpuscular Volume 93.8 Mean Corpuscular Hemoglobin 29.5 Mean Corpuscular Hemoglobin Concent 31.4 L Red Cell Distribution Width 14.3 Platelet Count 334 Mean Platelet Volume 9.7 Neutrophils % 56.7 Lymphocytes % 25.9 Monocytes % 10.9 Eosinophils % 6.1 Basophils % 0.2 Nucleated Red Blood Cells % 0.0 Neutrophils # 4.6 Lymphocytes # 2.1 Monocytes # 0.9 Eosinophils # 0.5 Basophils # 0.0 Nucleated Red Blood Cells # 0.0 Sodium Level 141 Potassium Level 3.6 Chloride Level 102 Carbon Dioxide Level 29 Anion Gap 14 Blood Urea Nitrogen 17 Creatinine 0.52 L Glucose Level 89 Calcium Level 8.6 Phosphorus Level 3.7 Magnesium Level 1.8 Medications Current Medications Benazepril HCl (Lotensin) 40 mg DAILY GTB Last administered on 08/31/16 08:45; Admin Dose 40 MG; Start 08/26/16 at 09:00 Carbidopa/Levodopa (Sinemet (25/ 100)) 0.5 tab BID GTB Last administered on 08/31 08:44; Admin Dose 0.5 TAB; Start 08/25/16 at 21:00 Clonidine (Catapres) 0.1 mg Q6 PRN GTB SBP>160 Last administered on 08/31/16 04 :14; Admin Dose 0.1 MG; Start 08/25/16 at 13:30 Ferrous Sulfate (Feosol Liquid Cup) 330 mg BID GTB Last administered on 08:44; Admin Dose 330 MG; Start 08/25/16 at 21:00 Finasteride (Proscar) 5 mg DAILY GTB Last administered on 08/31/16 08:45; Admin Dose 5 MG; Start 08/26/16 at 09:00 Gabapentin (Neurontin) 300 mg BID GTB Last administered on 08/31/16 08:44; Admin Dose 300 MG; Start 08/25/16 at 21:00 Acetaminophen/ Hydrocodone Bitart ([place] (5/325)) 1 tab prn GTB Last administered on 08/29/16 13:30; Admin Dose 1 TAB; Start 08/25/16 at 13:30 Albuterol/ Ipratropium (Duoneb) 3 ml Q2HWA PRN INH WHEEZING AND SOB; Start at 13:30 Lorazepam (Ativan) 0.5 mg Q6 PRN GTB ANXIETY Last administered on 08/27/16 16: 15; Admin Dose 0.5 MG; Start 08/25/16 at 13:30 Magnesium Oxide (Mag-Ox 400) 400 mg QHS GTB Last administered on 08/30/16 20:08 ; Admin Dose 400 MG; Start 08/25/16 at 21:00 Multivitamins Therapeutic (Theragran) 1 tab DAILY GTB Last administered on 08:45; Admin Dose 1 TAB; Start 08/26/16 at 09:00 Ondansetron HCl (Zofran Tab) 4 mg Q6H PRN GTB NAUSEA AND/OR VOMITING; Start at 13:30 Pantoprazole (Protonix Tab) 40 mg DAILY PO Last administered on 08/31/16 08:44 ; Admin Dose 40 MG; Start 08/26/16 at 09:00 Acetaminophen (Tylenol Liquid) 650 mg Q6 PRN NGT FEVER GREATER THAN 100.6; Start 08/25/16 at 13:30 Docusate Sodium (Colace Liquid Cup) 100 mg BID GTB Last administered on 08:44; Admin Dose 100 MG; Start 08/25/16 at 21:00 Miscellaneous Information This patient suarez... PRN PRN XX WOUND CARE; Start 08/27 at 03:00 Imipenem/ Cilastatin Sodium 100 ml @ 100 mls/hr Q8 IVPB Last administered on 05:18; Admin Dose 100 MLS/HR; Start 08/27/16 at 22:00; Stop 08/31/16 at 23:45 Vancomycin HCl/ Sodium Chloride (Vancocin/NS) 150 ml @ 75 mls/hr Q24H IVPB Last administered on 08/31/16 05:20; Admin Dose 75 MLS/HR; Start 08/31/16 at 06: 00 Collagenase (Santyl) 1 applic DAILY TOP Last administered on 08/30/16 20:32; Admin Dose 1 APPLIC; Start 08/30/16 at 21:00 IV Flush 10 ml 10 ml PRN PRN IV IV PROTOCOL; Start 08/30/16 at 14:00 Meropenem (Merrem 1 Gm/100 ml (Pmx)) 100 ml @ 200 mls/hr Q12 IVPB ; Start at 09:00 Assessment/Plan Chief Complaint/Hosp Course Assessment 1. Resolving sepsis 2. Vent dependent respiratory failure, with acute on chronic hypoxemic respiratory failure 3. Healthcare associated pneumonia 4. History of Parkinson's disease 5. Anemia likely of chronic disease 6. Dysphagia with G-tube Plan 1. Continue mechanical ventilation, stable on volume control ventilation 2. Continue PICC line care 3. Antibiotics per primary team, consider de-escalation soon 4. Monitor H&H 5. Hold off sedation 6. Continue tube feeding as tolerated 7. DVT and GI prophylaxis Disposition Transfer to telemetry or transfer back to subacute facility Problems: IN[facility] LONDON [facility], [facility] August 31, 2016 10:24
--- NOTE | 2016-08-31 11:46 | PN ---
Date/Time of Note Date/Time of Note DATE: 08/31/16 TIME: 11:43 Assessment/Plan VTE Prophylaxis VTE Prophylaxis Intervention: SCD's Lines/Catheters IV Catheter Type (from Nrs): PICC Line Central line still needed: Yes Urinary Cath still in place: Yes Reason Cath still needed: urinary retention Assessment/Plan Chief Complaint/Hosp Course Assessment/Cora -Sepsis secondary to pneumonia and UTI, continue antibiotics per ID, Dr. Shine is following infection disease consultation. - HCAP -Pseudomonas UTI. -Ventilator dependent respiratory failure with tracheostomy, with acute on chronic hypoxemic respiratory failure. is following in pulmonology consultation, continue bronchodilators and ventilatory support. -Prerenal azotemia - Cervical myelopathy, status post cervical spine and upper thoracic spine surgery. 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 -Dysphagia with PEG. -HTN -CHF -GOUT -Cervical Stenosis -BPH -Sacral and heel pressure ulcers - GERD Transfer to telemetry Further recommendations based on clinical course. Plan of care discussed with Dr. Manriquez. Problems: Subjective 24 Hr Interval Summary Free Text/Dictation Patient is currently awake alert, continues on ventilatory support via tracheostomy, patient looks comfortable no in no respiratory distress, off sedation, hemodynamically stable. Exam/Review of Systems Vital Signs Vitals Vital Signs Date Time Temp Pulse Resp B/P Pulse Ox O2 Delivery O2 Flow Rate FiO2 08/31/16 09:00 53 14 134/77 99 Mechanical Ventilator 08/31/16 08:00 98.6 08/31/16 05:05 30 Intake and Output 08/30/16 08/30/16 08/31/16 15:00 23:00 07:00 Intake Total 190 ml 250 ml Output Total 675 ml 700 ml 550 ml Balance -675 ml -510 ml -300 ml Exam Constitutional: alert, frail Psych: confusion Head: atraumatic, normocephalic Eyes: nl conjunctiva ENMT: nl external ears & nose Neck: other (Tracheostomy) Respiratory: crackles/rales, diminished breath sounds, other (On vent support) Cardiovascular: nl pulses, regular rate and rhythm Gastrointestinal: non-tender, other (G-tube) Musculoskeletal: nl extremities to inspection Extremities: normal pulses Neurological: confused, other (Quadriparesis) Results Result Diagram: 08/31/16 0400 08/31/16 0400 Results 24 hrs Laboratory Tests Test 08/31/16 04:00 White Blood Count 8.2 # Red Blood Count 2.75 L Hemoglobin 8.1 L Hematocrit 25.8 L Mean Corpuscular Volume 93.8 Mean Corpuscular Hemoglobin 29.5 Mean Corpuscular Hemoglobin Concent 31.4 L Red Cell Distribution Width 14.3 Platelet Count 334 Mean Platelet Volume 9.7 Neutrophils % 56.7 Lymphocytes % 25.9 Monocytes % 10.9 Eosinophils % 6.1 Basophils % 0.2 Nucleated Red Blood Cells % 0.0 Neutrophils # 4.6 Lymphocytes # 2.1 Monocytes # 0.9 Eosinophils # 0.5 Basophils # 0.0 Nucleated Red Blood Cells # 0.0 Sodium Level 141 Potassium Level 3.6 Chloride Level 102 Carbon Dioxide Level 29 Anion Gap 14 Blood Urea Nitrogen 17 Creatinine 0.52 L Glucose Level 89 Calcium Level 8.6 Phosphorus Level 3.7 Magnesium Level 1.8 Medications Medications Current Medications Benazepril HCl (Lotensin) 40 mg DAILY GTB Last administered on 08/31/16 08:45; Admin Dose 40 MG; Start 08/26/16 at 09:00 Carbidopa/Levodopa (Sinemet (25/ 100)) 0.5 tab BID GTB Last administered on 08/31 08:44; Admin Dose 0.5 TAB; Start 08/25/16 at 21:00 Clonidine (Catapres) 0.1 mg Q6 PRN GTB SBP>160 Last administered on 08/31/16 04 :14; Admin Dose 0.1 MG; Start 08/25/16 at 13:30 Ferrous Sulfate (Feosol Liquid Cup) 330 mg BID GTB Last administered on 08:44; Admin Dose 330 MG; Start 08/25/16 at 21:00 Finasteride (Proscar) 5 mg DAILY GTB Last administered on 08/31/16 08:45; Admin Dose 5 MG; Start 08/26/16 at 09:00 Gabapentin (Neurontin) 300 mg BID GTB Last administered on 08/31/16 08:44; Admin Dose 300 MG; Start 08/25/16 at 21:00 Acetaminophen/ Hydrocodone Bitart ([place] (5/325)) 1 tab prn GTB Last administered on 08/29/16 13:30; Admin Dose 1 TAB; Start 08/25/16 at 13:30 Albuterol/ Ipratropium (Duoneb) 3 ml Q2HWA PRN INH WHEEZING AND SOB; Start at 13:30 Lorazepam (Ativan) 0.5 mg Q6 PRN GTB ANXIETY Last administered on 08/27/16 16: 15; Admin Dose 0.5 MG; Start 08/25/16 at 13:30 Magnesium Oxide (Mag-Ox 400) 400 mg QHS GTB Last administered on 08/30/16 20:08 ; Admin Dose 400 MG; Start 08/25/16 at 21:00 Multivitamins Therapeutic (Theragran) 1 tab DAILY GTB Last administered on 08:45; Admin Dose 1 TAB; Start 08/26/16 at 09:00 Ondansetron HCl (Zofran Tab) 4 mg Q6H PRN GTB NAUSEA AND/OR VOMITING; Start at 13:30 Pantoprazole (Protonix Tab) 40 mg DAILY PO Last administered on 08/31/16 08:44 ; Admin Dose 40 MG; Start 08/26/16 at 09:00 Acetaminophen (Tylenol Liquid) 650 mg Q6 PRN NGT FEVER GREATER THAN 100.6; Start 08/25/16 at 13:30 Docusate Sodium (Colace Liquid Cup) 100 mg BID GTB Last administered on 08:44; Admin Dose 100 MG; Start 08/25/16 at 21:00 Miscellaneous Information This patient suarez... PRN PRN XX WOUND CARE; Start 08/27 at 03:00 Imipenem/ Cilastatin Sodium 100 ml @ 100 mls/hr Q8 IVPB Last administered on 05:18; Admin Dose 100 MLS/HR; Start 08/27/16 at 22:00; Stop 08/31/16 at 23:45 Vancomycin HCl/ Sodium Chloride (Vancocin/NS) 150 ml @ 75 mls/hr Q24H IVPB Last administered on 08/31/16 05:20; Admin Dose 75 MLS/HR; Start 08/31/16 at 06: 00 Collagenase (Santyl) 1 applic DAILY TOP Last administered on 5/2/17at 20:32; Admin Dose 1 APPLIC; Start 08/30/16 at 21:00 IV Flush 10 ml 10 ml PRN PRN IV IV PROTOCOL; Start 08/30/16 at 14:00 Meropenem (Merrem 1 Gm/100 ml (Pmx)) 100 ml @ 200 mls/hr Q12 IVPB ; Start at 09:00 MARCO DOE August 31, 2016 11:45
[2016-08-31] MEDS: HYDROCODONE/APAP (5/325) TAB GTB SCH (12:25)
[2016-08-31] MEDS: LORAZEPAM 0.5 MG TAB GTB PRN ×2 (12:26→20:12)
--- NOTE | 2016-08-31 12:46 | PN ---
DATE: 08/31/2016 SUBJECTIVE: No acute changes. The patient is awake, feels good. Denies pain, discomfort. No feve rs. VITAL SIGNS: Stable. Temperature 98.6, pulse 60, respirations 20, blood pressure 134/77, saturatio n 99% on FIO2 of 30. WBC 8.2, platelets 334, neutrophils 56.7, BUN 17, creatinine 0.52. DIAGNOSTICS: Chest x-ray revealed improved aeration over the right lung compared to previous examin ation. INDWELLINGS: Trach, PEG, Hobbs, PICC line placed on 08/30/2016 in his left upper extremity ____ ext remity. ANTIMICROBIALS: The patient remains on: 1. Vancomycin. 2. Meropenem. PHYSICAL EXAMINATION: GENERAL: This is a fragile, well-developed elderly man who is awake, in no distress. HEENT: Head atraumatic, normocephalic. Sclerae anicteric. Buccal mucosa dry. NECK: Supple. Tracheostomy present. CHEST: Rise symmetrical. Breath sounds with scattered rhonchi. HEART: S1, S2. ABDOMEN: Soft, bowel sounds present. EXTREMITIES: Without cyanosis or edema. ASSESSMENT: 1. Resolving sepsis. 2. Acute on chronic respiratory failure. 3. Healthcare-associated pneumonia. 4. Pseudomonas aeruginosa urinary tract infection. PLAN: The patient remains stable. He is on appropriate antimicrobials. He is overall improving. Continue vent management as per pulmonary. Dictated By: MARI GOODE FITNESS COORDINATOR for NEMO ESTEVES/CHITRA Conf#: [id number] DID#: [id number]
[2016-08-31] MEDS ORDERED: SOD CHLORIDE 0.9% 100 ML ONE (16:00)
--- NOTE | 2016-08-31 18:28 | RADRPT ---
PROCEDURE: US bilateral lower extremity veins. CLINICAL INDICATION: Bilateral leg pain and swelling. TECHNIQUE: Multiple longitudinal and transverse images of the bilateral lower extremity veins were obtained with barraza scale and color Doppler imaging. The common femoral vein, femoral vein, and popl iteal vein were evaluated. 2D grayscale measurements with compression sonography, color Doppler, and pulsed Doppler with augmentation. COMPARISON: No prior studies are available for comparison. FINDINGS: The bilateral common femoral, femoral and popliteal veins are normally compressible throughout. Col or flow demonstrates normal filling of the vessels. Normal waveforms are visualized and there is no rmal response to augmentation. IMPRESSION: 1. No evidence of deep vein thrombosis involving either lower extremity. RPTAT: QQ .Андрей Damon MD, MD Date Time Electronically viewed and signed by .Андрей Damon MD, on 08/31/2016 18:28 .R/
[2016-08-31] MEDS: COLLAGENASE 30 GM TUBE TOP SCH (20:15)
[2016-08-31] MEDS: MAGNESIUM OXIDE 400 MG TAB GTB SCH (20:18)
[2016-09-01] VITALS (37 sets, daily range): BP systolic 114–176; BP diastolic 54–90; PULSE 45–64; RESP 12–25
[2016-09-01] MEDS: LORAZEPAM 0.5 MG TAB GTB PRN ×2 (04:30→12:04)
[2016-09-01 04:49] LABS: ADD SCAN DIFF NO
[2016-09-01 05:02] LABS: BASOPHILS % 0.3 % (0.0-2.0); EOSINOPHILS # 0.5 10^3/ul (0.0-0.5); EOSINOPHILS % 5.9 % (0.0-7.0); HEMATOCRIT 26.2 % (42.0-52.0); HEMOGLOBIN 8.2 g/dl (14.0-18.0); LYMPHOCYTES # 2.3 10^3/ul (0.8-2.9); LYMPHOCYTES % 25.8 % (15.0-51.0); MEAN CORPUSCULAR HEMOGLOBIN 29.5 pg (29.0-33.0); MEAN CORPUSCULAR HGB CONC 31.3 g/dl (32.0-37.0); MEAN CORPUSCULAR VOLUME 94.2 fl (82.0-101.0); MEAN PLATELET VOLUME 9.8 fl (7.4-10.4); MONOCYTE # 1.1 10^3/ul (0.3-0.9); MONOCYTES % 12.3 % (0.0-11.0); NEUTROPHILS % 55.5 % (39.0-77.0); PLATELET COUNT 325 10^3/UL (140-415); RED BLOOD COUNT 2.78 10^6/ul (4.70-6.10); RED CELL DISTRIBUTION WIDTH 14.6 % (11.5-14.5)
[2016-09-01 05:15] LABS: POTASSIUM 3.7 mmol/L (3.5-5.1)
[2016-09-01 05:18] LABS: CREATININE 0.52 mg/dl (0.61-1.24)
[2016-09-01 05:19] LABS: CALCIUM 8.3 mg/dl (8.4-10.2)
[2016-09-01] MEDS: VANCOMYCIN 750 MG in SOD CHLORIDE 0.9% 150 ML IVPB SCH (06:13)
[2016-09-01] MEDS: FERROUS SULFATE 60 MG/ML 5ML CUP GTB SCH ×2 (08:36→21:19)
[2016-09-01] MEDS: DOCUSATE SODIUM 10 MG/ML (10ML CUP) GTB SCH ×2 (08:36→21:17)
[2016-09-01] MEDS: MULTIVITAMINS THERAPEUTIC TAB GTB SCH (08:37)
[2016-09-01] MEDS: GABAPENTIN 300 MG CAP GTB SCH ×2 (08:37→21:17)
[2016-09-01] MEDS: PANTOPRAZOLE (EC) 40 MG TAB PO SCH (08:37)
[2016-09-01] MEDS: CARBIDOPA/LEVODOPA (25/100) TAB GTB SCH ×2 (08:37→21:18)
[2016-09-01] MEDS: FINASTERIDE 5 MG TAB GTB SCH (08:37)
[2016-09-01] MEDS: BENAZEPRIL 40 MG TAB GTB SCH (08:37)
[2016-09-01] MEDS: MEROPENEM 1 GM/100 ML (PMX) 100 ML IVPB SCH ×2 (08:47→21:25)
[2016-09-01] MEDS: COLLAGENASE 30 GM TUBE TOP SCH (08:52)
[2016-09-01] MEDS: HYDROCODONE/APAP (5/325) TAB GTB SCH (09:06)
--- NOTE | 2016-09-01 09:39 | CONS ---
Date/Time of Note Date/Time of Note DATE: 09/01/16 TIME: 09:29 Consult Date/Type/Reason Admit Date/Time Aug 26, 2016 at 06:53 Initial Consult Date 08/25/16 Type of Consultation: pulmonary ICU Objective Vital Signs Date Time Temp Pulse Resp B/P Pulse Ox O2 Delivery O2 Flow Rate FiO2 09/01/16 08:00 59 09/01/16 07:00 20 144/58 99 Mechanical Ventilator 09/01/16 05:26 30 09/01/16 04:00 98.0 Intake and Output 08/31/16 08/31/16 09/01/16 15:00 23:00 07:00 Intake Total 660 ml 250 ml 490 ml Output Total 550 ml 290 ml 200 ml Balance 110 ml -40 ml 290 ml Results/Medications Result Diagram: 09/01/16 0400 09/01/16 0400 Results 24 hrs Laboratory Tests Test 09/01/16 04:00 White Blood Count 9.0 Red Blood Count 2.78 L Hemoglobin 8.2 L Hematocrit 26.2 L Mean Corpuscular Volume 94.2 Mean Corpuscular Hemoglobin 29.5 Mean Corpuscular Hemoglobin Concent 31.3 L Red Cell Distribution Width 14.6 H Platelet Count 325 Mean Platelet Volume 9.8 Neutrophils % 55.5 Lymphocytes % 25.8 Monocytes % 12.3 H Eosinophils % 5.9 Basophils % 0.3 Nucleated Red Blood Cells % 0.0 Neutrophils # 5.0 Lymphocytes # 2.3 Monocytes # 1.1 H Eosinophils # 0.5 Basophils # 0.0 Nucleated Red Blood Cells # 0.0 Sodium Level 140 Potassium Level 3.7 Chloride Level 101 Carbon Dioxide Level 31 Anion Gap 12 Blood Urea Nitrogen 17 Creatinine 0.52 L Glucose Level 156 Calcium Level 8.3 L Medications Current Medications Benazepril HCl (Lotensin) 40 mg DAILY GTB Last administered on 09/01/16 08:37; Admin Dose 40 MG; Start 08/26/16 at 09:00 Carbidopa/Levodopa (Sinemet (25/ 100)) 0.5 tab BID GTB Last administered on 09/01 08:37; Admin Dose 0.5 TAB; Start 08/25/16 at 21:00 Clonidine (Catapres) 0.1 mg Q6 PRN GTB SBP>160 Last administered on 08/31/16 20 :13; Admin Dose 0.1 MG; Start 08/25/16 at 13:30 Ferrous Sulfate (Feosol Liquid Cup) 330 mg BID GTB Last administered on 08:36; Admin Dose 330 MG; Start 08/25/16 at 21:00 Finasteride (Proscar) 5 mg DAILY GTB Last administered on 09/01/16 08:37; Admin Dose 5 MG; Start 08/26/16 at 09:00 Gabapentin (Neurontin) 300 mg BID GTB Last administered on 09/01/16 08:37; Admin Dose 300 MG; Start 08/25/16 at 21:00 Acetaminophen/ Hydrocodone Bitart ([place] (5/325)) 1 tab prn GTB Last administered on 09/01/16 09:06; Admin Dose 1 TAB; Start 08/25/16 at 13:30 Albuterol/ Ipratropium (Duoneb) 3 ml Q2HWA PRN INH WHEEZING AND SOB; Start at 13:30 Lorazepam (Ativan) 0.5 mg Q6 PRN GTB ANXIETY Last administered on 09/01/16 04: 30; Admin Dose 0.5 MG; Start 08/25/16 at 13:30 Magnesium Oxide (Mag-Ox 400) 400 mg QHS GTB Last administered on 08/31/16 20:18 ; Admin Dose 400 MG; Start 08/25/16 at 21:00 Multivitamins Therapeutic (Theragran) 1 tab DAILY GTB Last administered on 08:37; Admin Dose 1 TAB; Start 08/26/16 at 09:00 Ondansetron HCl (Zofran Tab) 4 mg Q6H PRN GTB NAUSEA AND/OR VOMITING; Start at 13:30 Pantoprazole (Protonix Tab) 40 mg DAILY PO Last administered on 09/01/16 08:37 ; Admin Dose 40 MG; Start 08/26/16 at 09:00 Acetaminophen (Tylenol Liquid) 650 mg Q6 PRN NGT FEVER GREATER THAN 100.6; Start 08/25/16 at 13:30 Docusate Sodium (Colace Liquid Cup) 100 mg BID GTB Last administered on 08:36; Admin Dose 100 MG; Start 08/25/16 at 21:00 Miscellaneous Information This patient suarez... PRN PRN XX WOUND CARE; Start 08/27 at 03:00 Vancomycin HCl/ Sodium Chloride (Vancocin/NS) 150 ml @ 75 mls/hr Q24H IVPB Last administered on 09/01/16 06:13; Admin Dose 75 MLS/HR; Start 08/31/16 at 06: 00 Collagenase (Santyl) 1 applic DAILY TOP Last administered on 09/01/16 08:52; Admin Dose 1 APPLIC; Start 08/30/16 at 21:00 IV Flush 10 ml 10 ml PRN PRN IV IV PROTOCOL; Start 08/30/16 at 14:00 Meropenem (Merrem 1 Gm/100 ml (Pmx)) 100 ml @ 200 mls/hr Q12 IVPB Last administered on 09/01/16 08:47; Admin Dose 200 MLS/HR; Start 09/01/16 at 09:00 Assessment/Plan Chief Complaint/Hosp Course Assessment 1. Resolving sepsis 2. Vent dependent respiratory failure, with acute on chronic hypoxemic respiratory failure 3. Healthcare associated pneumonia 4. History of Parkinson's disease 5. Anemia likely of chronic disease 6. Dysphagia with G-tube Plan 1. Continue mechanical ventilation, stable on volume control ventilation 2. Continue PICC line care 3. Antibiotics per primary team, consider de-escalation soon 4. Monitor H&H 5. Hold off sedation 6. Continue tube feeding as tolerated 7. DVT and GI prophylaxis Disposition Transfer to telemetry or transfer back to subacute facility Problems: INDER LONDON [facility], [facility] September 01, 2016 09:39
--- NOTE | 2016-09-01 11:47 | PN ---
DATE: 09/01/2016 INFECTIOUS DISEASE PROGRESS NOTE SUBJECTIVE: No acute changes. The patient is lying comfortably in bed. He is afebrile. LABORATORY DATA: WBC today 9, platelets 325, no shift. BUN 17, creatinine 0.52. INDWELLINGS: Trach, PEG, Hobbs, and PICC line. ANTIMICROBIALS: 1. Vancomycin. 2. Meropenem. PHYSICAL EXAMINATION: GENERAL: This is a well-developed, fragile, elderly man who is in no distress. HEENT: Head atraumatic, normocephalic. Sclerae anicteric. Buccal mucosa dry. NECK: Supple, trachea midline. CHEST: Rise symmetrical. Breath sounds diminished to bases. HEART: S1, S2. ABDOMEN: Soft, bowel sounds present. EXTREMITIES: Without cyanosis. ASSESSMENT: 1. Acute on chronic respiratory failure. 2. Healthcare-associated pneumonia. 3. Pseudomonas aeruginosa urinary tract infection. 4. Resolving sepsis. PLAN: The patient remains stable. Continue present care. Complete antibiotics for 7 more days. Dictated By: MARI GOODE STERILE INSTRUMENT TECHNICIAN for NEM[employer] ESTEVES/CHITRA Conf#: [id number] DID#: [id number]
[2016-09-01] MEDS: morphine 2 MG INJ IV PRN (13:38)
--- NOTE | 2016-09-01 14:53 | PN ---
Date/Time of Note Date/Time of Note DATE: 09/01/16 TIME: 14:51 Assessment/Plan VTE Prophylaxis VTE Prophylaxis Intervention: SCD's Lines/Catheters IV Catheter Type (from Nrs): PICC Line Central line still needed: Yes Urinary Cath still in place: Yes Reason Cath still needed: urinary retention Assessment/Plan Chief Complaint/Hosp Course Assessment/Cora -Sepsis secondary to pneumonia and UTI, continue antibiotics per ID, Dr. Shine is following infection disease consultation. - HCAP -Pseudomonas UTI. -Ventilator dependent respiratory failure with tracheostomy, with acute on chronic hypoxemic respiratory failure. is following in pulmonology consultation, continue bronchodilators and ventilatory support. -Prerenal azotemia - Cervical myelopathy, status post cervical spine and upper thoracic spine surgery. 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 -Dysphagia with PEG. -HTN -CHF -GOUT -Cervical Stenosis -BPH -Sacral and heel pressure ulcers - GERD Transfer to telemetry Further recommendations based on clinical course. Plan of care discussed with Dr. Manriquez. Problems: Subjective 24 Hr Interval Summary Free Text/Dictation Patient's remains hemodynamically stable with slight bradycardia, complaints of the left lower extremity pain which is chronic, ultrasound is negative for DVT. Exam/Review of Systems Vital Signs Vitals Vital Signs Date Time Temp Pulse Resp B/P Pulse Ox O2 Delivery O2 Flow Rate FiO2 09/01/16 14:00 52 12 144/69 100 Mechanical Ventilator 09/01/16 12:55 30 09/01/16 12:00 98.1 Intake and Output 08/31/16 08/31/16 09/01/16 15:00 23:00 07:00 Intake Total 660 ml 250 ml 565 ml Output Total 550 ml 290 ml 200 ml Balance 110 ml -40 ml 365 ml Exam Constitutional: alert, frail Psych: confusion Head: atraumatic, normocephalic Eyes: nl conjunctiva ENMT: nl external ears & nose Neck: other (Tracheostomy) Respiratory: crackles/rales, diminished breath sounds, other (On vent support) Cardiovascular: nl pulses, regular rate and rhythm Gastrointestinal: non-tender, other (G-tube) Musculoskeletal: nl extremities to inspection Extremities: normal pulses Neurological: confused, other (Quadriparesis) Results Result Diagram: 09/01/16 0400 09/01/16 0400 Results 24 hrs Laboratory Tests Test 09/01/16 04:00 White Blood Count 9.0 Red Blood Count 2.78 L Hemoglobin 8.2 L Hematocrit 26.2 L Mean Corpuscular Volume 94.2 Mean Corpuscular Hemoglobin 29.5 Mean Corpuscular Hemoglobin Concent 31.3 L Red Cell Distribution Width 14.6 H Platelet Count 325 Mean Platelet Volume 9.8 Neutrophils % 55.5 Lymphocytes % 25.8 Monocytes % 12.3 H Eosinophils % 5.9 Basophils % 0.3 Nucleated Red Blood Cells % 0.0 Neutrophils # 5.0 Lymphocytes # 2.3 Monocytes # 1.1 H Eosinophils # 0.5 Basophils # 0.0 Nucleated Red Blood Cells # 0.0 Sodium Level 140 Potassium Level 3.7 Chloride Level 101 Carbon Dioxide Level 31 Anion Gap 12 Blood Urea Nitrogen 17 Creatinine 0.52 L Glucose Level 156 Calcium Level 8.3 L Medications Medications Current Medications Benazepril HCl (Lotensin) 40 mg DAILY GTB Last administered on 09/01/16 08:37; Admin Dose 40 MG; Start 08/26/16 at 09:00 Carbidopa/Levodopa (Sinemet (25/ 100)) 0.5 tab BID GTB Last administered on 09/01 08:37; Admin Dose 0.5 TAB; Start 08/25/16 at 21:00 Clonidine (Catapres) 0.1 mg Q6 PRN GTB SBP>160 Last administered on 08/31/16 20 :13; Admin Dose 0.1 MG; Start 08/25/16 at 13:30 Ferrous Sulfate (Feosol Liquid Cup) 330 mg BID GTB Last administered on 08:36; Admin Dose 330 MG; Start 08/25/16 at 21:00 Finasteride (Proscar) 5 mg DAILY GTB Last administered on 09/01/16 08:37; Admin Dose 5 MG; Start 08/26/16 at 09:00 Gabapentin (Neurontin) 300 mg BID GTB Last administered on 09/01/16 08:37; Admin Dose 300 MG; Start 08/25/16 at 21:00 Acetaminophen/ Hydrocodone Bitart ([place] (5/325)) 1 tab prn GTB Last administered on 09/01/16 09:06; Admin Dose 1 TAB; Start 08/25/16 at 13:30 Albuterol/ Ipratropium (Duoneb) 3 ml Q2HWA PRN INH WHEEZING AND SOB; Start at 13:30 Lorazepam (Ativan) 0.5 mg Q6 PRN GTB ANXIETY Last administered on 09/01/16 12: 04; Admin Dose 0.5 MG; Start 08/25/16 at 13:30 Magnesium Oxide (Mag-Ox 400) 400 mg QHS GTB Last administered on 08/31/16 20:18 ; Admin Dose 400 MG; Start 08/25/16 at 21:00 Multivitamins Therapeutic (Theragran) 1 tab DAILY GTB Last administered on 08:37; Admin Dose 1 TAB; Start 08/26/16 at 09:00 Ondansetron HCl (Zofran Tab) 4 mg Q6H PRN GTB NAUSEA AND/OR VOMITING; Start at 13:30 Pantoprazole (Protonix Tab) 40 mg DAILY PO Last administered on 09/01/16 08:37 ; Admin Dose 40 MG; Start 08/26/16 at 09:00 Acetaminophen (Tylenol Liquid) 650 mg Q6 PRN NGT FEVER GREATER THAN 100.6; Start 08/25/16 at 13:30 Docusate Sodium (Colace Liquid Cup) 100 mg BID GTB Last administered on 08:36; Admin Dose 100 MG; Start 08/25/16 at 21:00 Miscellaneous Information This patient suarez... PRN PRN XX WOUND CARE; Start 08/27 at 03:00 Vancomycin HCl/ Sodium Chloride (Vancocin/NS) 150 ml @ 75 mls/hr Q24H IVPB Last administered on 09/01/16 06:13; Admin Dose 75 MLS/HR; Start 08/31/16 at 06: 00 Collagenase (Santyl) 1 applic DAILY TOP Last administered on 09/01/16 08:52; Admin Dose 1 APPLIC; Start 08/30/16 at 21:00 IV Flush 10 ml 10 ml PRN PRN IV IV PROTOCOL; Start 08/30/16 at 14:00 Meropenem (Merrem 1 Gm/100 ml (Pmx)) 100 ml @ 200 mls/hr Q12 IVPB Last administered on 09/01/16 08:47; Admin Dose 200 MLS/HR; Start 09/01/16 at 09:00 Morphine Sulfate (morphine) 1 mg Q4H PRN IV PAIN LEVEL 6-10 Last administered on 09/01/16 13:38; Admin Dose 1 MG; Start 09/01/16 at 13:30 MARCO DOE September 01, 2016 14:53
[2016-09-01] MEDS: MAGNESIUM OXIDE 400 MG TAB GTB SCH (21:17)
[2016-09-02] VITALS (24 sets, daily range): BP systolic 138–186; BP diastolic 75–83; PULSE 53–67; RESP 12–67
[2016-09-02] MEDS: VANCOMYCIN 750 MG in SOD CHLORIDE 0.9% 150 ML IVPB SCH (06:45)
[2016-09-02] MEDS: COLLAGENASE 30 GM TUBE TOP SCH (09:00)
[2016-09-02] MEDS: FERROUS SULFATE 60 MG/ML 5ML CUP GTB SCH ×2 (09:03→21:50)
[2016-09-02] MEDS: MEROPENEM 1 GM/100 ML (PMX) 100 ML IVPB SCH (09:03)
[2016-09-02] MEDS: PANTOPRAZOLE (EC) 40 MG TAB PO SCH (09:04)
[2016-09-02] MEDS: MULTIVITAMINS THERAPEUTIC TAB GTB SCH (09:04)
[2016-09-02] MEDS: CARBIDOPA/LEVODOPA (25/100) TAB GTB SCH ×2 (09:04→21:50)
[2016-09-02] MEDS: FINASTERIDE 5 MG TAB GTB SCH (09:04)
[2016-09-02] MEDS: DOCUSATE SODIUM 10 MG/ML (10ML CUP) GTB SCH ×2 (09:04→21:50)
[2016-09-02] MEDS: GABAPENTIN 300 MG CAP GTB SCH ×2 (09:04→21:50)
[2016-09-02] MEDS: BENAZEPRIL 40 MG TAB GTB SCH (09:05)
[2016-09-02 09:23] LABS: ADD SCAN DIFF NO
[2016-09-02 09:28] LABS: BASOPHILS % 0.1 % (0.0-2.0); EOSINOPHILS # 0.5 10^3/ul (0.0-0.5); EOSINOPHILS % 6.3 % (0.0-7.0); HEMATOCRIT 25.4 % (42.0-52.0); HEMOGLOBIN 7.9 g/dl (14.0-18.0); LYMPHOCYTES # 1.9 10^3/ul (0.8-2.9); LYMPHOCYTES % 23.3 % (15.0-51.0); MEAN CORPUSCULAR HEMOGLOBIN 29.3 pg (29.0-33.0); MEAN CORPUSCULAR HGB CONC 31.1 g/dl (32.0-37.0); MEAN CORPUSCULAR VOLUME 94.1 fl (82.0-101.0); MEAN PLATELET VOLUME 9.8 fl (7.4-10.4); MONOCYTE # 1.1 10^3/ul (0.3-0.9); NEUTROPHIL # 4.7 10^3/ul (1.6-7.5); NEUTROPHILS % 56.9 % (39.0-77.0); PLATELET COUNT 310 10^3/UL (140-415); RED CELL DISTRIBUTION WIDTH 15.3 % (11.5-14.5); WHITE BLOOD COUNT 8.3 10^3/ul (4.8-10.8)
[2016-09-02 09:46] LABS: CALCIUM 8.1 mg/dl (8.4-10.2); CREATININE 0.49 mg/dl (0.61-1.24); POTASSIUM 4.1 mmol/L (3.5-5.1)
--- NOTE | 2016-09-02 11:29 | CONS ---
Date/Time of Note Date/Time of Note DATE: 09/02/16 TIME: 11:27 Assessment/Plan Assessment/Plan Additional Assessment/Plan Ventilator settings; AC of 12, tidal volume 500, PEEP of 5, 30% FiO2. Next Assessment recommendations; 1. Patient admitted with right lower lobe pneumonia from pseudomonas aeruginosa. The significant clinical improvement. 2. Chronic expiratory failure. 3. History of anemia, seizures, hypertension, gout, Parkinson's disease, all appear fairly stable. Continue current treatment. Consultation Date/Type/Reason Admit Date/Time Aug 26, 2016 at 06:53 Initial Consult Date 08/25/16 Type of Consultation: pulmonary ICU 24 HR Interval Summary Free Text/Dictation Patient condition remains stable. Has been transferred out of ICU to telemetry unit. Patient remains awake and follows simple commands. Has remained hemodynamically stable. General exam; elderly male, on ventilator via tracheostomy, currently in no distress. Exam/Review of Systems Vital Signs Vitals Vital Signs Date Time Temp Pulse Resp B/P Pulse Ox O2 Delivery O2 Flow Rate FiO2 09/02/16 09:10 53 09/02/16 07:43 98.0 20 185/81 100 09/02/16 05:21 30 09/01/16 16:00 Mechanical Ventilator Intake and Output 09/01/16 09/01/16 09/02/16 14:59 22:59 06:59 Intake Total 770 ml 240 ml 870 ml Output Total 510 ml 260 ml 1000 ml Balance 260 ml -20 ml -130 ml Exam HEENT exam is; supple neck, no JVD. No lymphadenopathy. Midline trachea. No thyromegaly. Patient has multiple carious teeth. Pupils are small bilaterally. Tracheostomy in place with clean insertion site. Chest examination; diminished but clear vessel. S1-S2 audible, no murmurs. Abdomen examination; soft, G-tube in place. No organomegaly. Bowel sounds audible. Extremity examination; no peripheral edema. [employer]CIAL CONTROLLER examination; patient is awake moves all 4 extremities. Results Result Diagram: 09/02/1690409/02/16904 Results 24 hrs Laboratory Tests Test 09/02/16 09:05 White Blood Count 8.3 Red Blood Count 2.70 L Hemoglobin 7.9 L Hematocrit 25.4 L Mean Corpuscular Volume 94.1 Mean Corpuscular Hemoglobin 29.3 Mean Corpuscular Hemoglobin Concent 31.1 L Red Cell Distribution Width 15.3 H Platelet Count 310 Mean Platelet Volume 9.8 Neutrophils % 56.9 Lymphocytes % 23.3 Monocytes % 13.0 H Eosinophils % 6.3 Basophils % 0.1 Nucleated Red Blood Cells % 0.0 Neutrophils # 4.7 Lymphocytes # 1.9 Monocytes # 1.1 H Eosinophils # 0.5 Basophils # 0.0 Nucleated Red Blood Cells # 0.0 Sodium Level 136 Potassium Level 4.1 Chloride Level 104 Carbon Dioxide Level 30 Anion Gap 6 L Blood Urea Nitrogen 17 Creatinine 0.49 L Glucose Level 149 Calcium Level 8.1 L Medications Medications Current Medications Benazepril HCl (Lotensin) 40 mg DAILY GTB Last administered on 09/02/16 09:05; Admin Dose 40 MG; Start 08/26/16 at 09:00 Carbidopa/Levodopa (Sinemet (25/ 100)) 0.5 tab BID GTB Last administered on 09/02 09:04; Admin Dose 0.5 TAB; Start 08/25/16 at 21:00 Clonidine (Catapres) 0.1 mg Q6 PRN GTB SBP>160 Last administered on 09/01/16 23 :49; Admin Dose 0.1 MG; Start 08/25/16 at 13:30 Ferrous Sulfate (Feosol Liquid Cup) 330 mg BID GTB Last administered on 09:03; Admin Dose 330 MG; Start 08/25/16 at 21:00 Finasteride (Proscar) 5 mg DAILY GTB Last administered on 09/02/16 09:04; Admin Dose 5 MG; Start 08/26/16 at 09:00 Gabapentin (Neurontin) 300 mg BID GTB Last administered on 09/02/16 09:04; Admin Dose 300 MG; Start 08/25/16 at 21:00 Acetaminophen/ Hydrocodone Bitart ([place] (5/325)) 1 tab prn GTB Last administered on 09/01/16 09:06; Admin Dose 1 TAB; Start 08/25/16 at 13:30 Albuterol/ Ipratropium (Duoneb) 3 ml Q2HWA PRN INH WHEEZING AND SOB; Start at 13:30 Lorazepam (Ativan) 0.5 mg Q6 PRN GTB ANXIETY Last administered on 09/01/16 12: 04; Admin Dose 0.5 MG; Start 08/25/16 at 13:30 Magnesium Oxide (Mag-Ox 400) 400 mg QHS GTB Last administered on 09/01/16 21:17 ; Admin Dose 400 MG; Start 08/25/16 at 21:00 Multivitamins Therapeutic (Theragran) 1 tab DAILY GTB Last administered on 09:04; Admin Dose 1 TAB; Start 08/26/16 at 09:00 Ondansetron HCl (Zofran Tab) 4 mg Q6H PRN GTB NAUSEA AND/OR VOMITING; Start at 13:30 Pantoprazole (Protonix Tab) 40 mg DAILY PO Last administered on 09/02/16 09:04 ; Admin Dose 40 MG; Start 08/26/16 at 09:00 Acetaminophen (Tylenol Liquid) 650 mg Q6 PRN NGT FEVER GREATER THAN 100.6; Start 08/25/16 at 13:30 Docusate Sodium (Colace Liquid Cup) 100 mg BID GTB Last administered on 09:04; Admin Dose 100 MG; Start 08/25/16 at 21:00 Miscellaneous Information This patient suarez... PRN PRN XX WOUND CARE; Start 08/27 at 03:00 Vancomycin HCl/ Sodium Chloride (Vancocin/NS) 150 ml @ 75 mls/hr Q24H IVPB Last administered on 09/02/16 06:45; Admin Dose 75 MLS/HR; Start 08/31/16 at 06: 00 Collagenase (Santyl) 1 applic DAILY TOP Last administered on 09/01/16 08:52; Admin Dose 1 APPLIC; Start 08/30/16 at 21:00 IV Flush 10 ml 10 ml PRN PRN IV IV PROTOCOL; Start 08/30/16 at 14:00 Meropenem (Merrem 1 Gm/100 ml (Pmx)) 100 ml @ 200 mls/hr Q12 IVPB Last administered on 09/02/16 09:03; Admin Dose 200 MLS/HR; Start 09/01/16 at 09:00 Morphine Sulfate (morphine) 1 mg Q4H PRN IV PAIN LEVEL 6-10 Last administered on 09/01/16 13:38; Admin Dose 1 MG; Start 09/01/16 at 13:30 KARLI RILEY September 02, 2016 11:29
--- NOTE | 2016-09-02 13:25 | PN ---
DATE: 09/02/2016 SUBJECTIVE: No events overnight. No fevers. The patient is lying comfortably in bed. LABORATORY DATA: WBC today 8.3, no shift, no bands. BUN 17, creatinine 0.49. ANTIMICROBIALS: 1. Vancomycin. 2. Merrem. INDWELLINGS: Trach, PEG, Hob[place]. PHYSICAL EXAMINATION: GENERAL: Well-developed, fragile, elderly man who is in no distress. HEENT: Head atraumatic, normocephalic. Sclerae anicteric. Buccal mucosa dry. NECK: Supple. Tracheostomy present. CHEST: Rise symmetrical. Breath sounds with scattered rhonchi. HEART: S1, S2. ABDOMEN: Soft, bowel tones present. EXTREMITIES: Without cyanosis. ASSESSMENT: 1. Status post sepsis. 2. Pseudomonas aeruginosa urinary tract infection. 3. Healthcare-associated pneumonia. 4. Dysphagia. 5. Anemia. PLAN: The patient remains stable. Continue present care. Complete antibiotics, follow pulmonary r ecommendations. Dictated By: MARI GOODE [employer]IDING MECHANIC for NEMO ESTEVES/CHITRA Conf#: [id number] DID#: [id number]
[2016-09-02] MEDS: HYDROCODONE/APAP (5/325) TAB GTB SCH (13:30)
--- NOTE | 2016-09-02 13:45 | PN ---
Date/Time of Note Date/Time of Note DATE: 09/02/16 TIME: 13:43 Assessment/Plan VTE Prophylaxis VTE Prophylaxis Intervention: SCD's Lines/Catheters IV Catheter Type (from Nrs): PICC Line Central line still needed: Yes Urinary Cath still in place: Yes Reason Cath still needed: urinary retention Assessment/Plan Chief Complaint/Hosp Course Assessment/Cora - Sepsis secondary to pneumonia and UTI, continue antibiotics per ID, Dr. Shine is following infection disease consultation. - HCAP -Pseudomonas UTI. -Ventilator dependent respiratory failure with tracheostomy, with acute on chronic hypoxemic respiratory failure. is following in pulmonology consultation, continue bronchodilators and ventilatory support. -Prerenal azotemia, resolved. - Cervical myelopathy, status post cervical spine and upper thoracic spine surgery. 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 -Dysphagia with PEG. -HTN -CHF -GOUT -Cervical Stenosis -BPH -Sacral and heel pressure ulcers, continue current wound care, offloading. - GERD Further recommendations based on clinical course. Plan of care discussed with Dr. Manriquez. Problems: Subjective 24 Hr Interval Summary Free Text/Dictation Patient's continues to have copious secretions from the tracheostomy, no fever, tolerates G-tube feeding well. Exam/Review of Systems Vital Signs Vitals Vital Signs Date Time Temp Pulse Resp B/P Pulse Ox O2 Delivery O2 Flow Rate FiO2 09/02/16 12:52 67 09/02/16 12:34 98.0 18 159/75 100 09/02/16 11:38 30 09/01/16 16:00 Mechanical Ventilator Intake and Output 09/01/16 09/01/16 09/02/16 15:00 23:00 07:00 Intake Total 765 ml 170 ml 870 ml Output Total 630 ml 140 ml 1000 ml Balance 135 ml 30 ml -130 ml Exam Constitutional: alert, frail Psych: confusion Head: atraumatic, normocephalic Eyes: nl conjunctiva ENMT: nl external ears & nose Neck: other (Tracheostomy) Respiratory: crackles/rales, diminished breath sounds, other (On vent support) Cardiovascular: nl pulses, regular rate and rhythm Gastrointestinal: non-tender, other (G-tube) Musculoskeletal: nl extremities to inspection Extremities: normal pulses Neurological: confused, other (Quadriparesis) Results Result Diagram: 09/02/1690409/02/16904 Results 24 hrs Laboratory Tests Test 09/02/16 09:05 White Blood Count 8.3 Red Blood Count 2.70 L Hemoglobin 7.9 L Hematocrit 25.4 L Mean Corpuscular Volume 94.1 Mean Corpuscular Hemoglobin 29.3 Mean Corpuscular Hemoglobin Concent 31.1 L Red Cell Distribution Width 15.3 H Platelet Count 310 Mean Platelet Volume 9.8 Neutrophils % 56.9 Lymphocytes % 23.3 Monocytes % 13.0 H Eosinophils % 6.3 Basophils % 0.1 Nucleated Red Blood Cells % 0.0 Neutrophils # 4.7 Lymphocytes # 1.9 Monocytes # 1.1 H Eosinophils # 0.5 Basophils # 0.0 Nucleated Red Blood Cells # 0.0 Sodium Level 136 Potassium Level 4.1 Chloride Level 104 Carbon Dioxide Level 30 Anion Gap 6 L Blood Urea Nitrogen 17 Creatinine 0.49 L Glucose Level 149 Calcium Level 8.1 L Medications Medications Current Medications Benazepril HCl (Lotensin) 40 mg DAILY GTB Last administered on 09/02/16 09:05; Admin Dose 40 MG; Start 08/26/16 at 09:00 Carbidopa/Levodopa (Sinemet (25/ 100)) 0.5 tab BID GTB Last administered on 09/02 09:04; Admin Dose 0.5 TAB; Start 08/25/16 at 21:00 Clonidine (Catapres) 0.1 mg Q6 PRN GTB SBP>160 Last administered on 09/01/16 23 :49; Admin Dose 0.1 MG; Start 08/25/16 at 13:30 Ferrous Sulfate (Feosol Liquid Cup) 330 mg BID GTB Last administered on 09:03; Admin Dose 330 MG; Start 08/25/16 at 21:00 Finasteride (Proscar) 5 mg DAILY GTB Last administered on 09/02/16 09:04; Admin Dose 5 MG; Start 08/26/16 at 09:00 Gabapentin (Neurontin) 300 mg BID GTB Last administered on 09/02/16 09:04; Admin Dose 300 MG; Start 08/25/16 at 21:00 Acetaminophen/ Hydrocodone Bitart ([place] (5/325)) 1 tab prn GTB Last administered on 09/01/16 09:06; Admin Dose 1 TAB; Start 08/25/16 at 13:30 Albuterol/ Ipratropium (Duoneb) 3 ml Q2HWA PRN INH WHEEZING AND SOB; Start at 13:30 Lorazepam (Ativan) 0.5 mg Q6 PRN GTB ANXIETY Last administered on 09/01/16 12: 04; Admin Dose 0.5 MG; Start 08/25/16 at 13:30 Magnesium Oxide (Mag-Ox 400) 400 mg QHS GTB Last administered on 09/01/16 21:17 ; Admin Dose 400 MG; Start 08/25/16 at 21:00 Multivitamins Therapeutic (Theragran) 1 tab DAILY GTB Last administered on 09:04; Admin Dose 1 TAB; Start 08/26/16 at 09:00 Ondansetron HCl (Zofran Tab) 4 mg Q6H PRN GTB NAUSEA AND/OR VOMITING; Start at 13:30 Pantoprazole (Protonix Tab) 40 mg DAILY PO Last administered on 09/02/16 09:04 ; Admin Dose 40 MG; Start 08/26/16 at 09:00 Acetaminophen (Tylenol Liquid) 650 mg Q6 PRN NGT FEVER GREATER THAN 100.6; Start 08/25/16 at 13:30 Docusate Sodium (Colace Liquid Cup) 100 mg BID GTB Last administered on 09:04; Admin Dose 100 MG; Start 08/25/16 at 21:00 Miscellaneous Information This patient suarez... PRN PRN XX WOUND CARE; Start 08/27 at 03:00 Vancomycin HCl/ Sodium Chloride (Vancocin/NS) 150 ml @ 75 mls/hr Q24H IVPB Last administered on 09/02/16 06:45; Admin Dose 75 MLS/HR; Start 08/31/16 at 06: 00 Collagenase (Santyl) 1 applic DAILY TOP Last administered on 09/01/16 08:52; Admin Dose 1 APPLIC; Start 08/30/16 at 21:00 IV Flush 10 ml 10 ml PRN PRN IV IV PROTOCOL; Start 08/30/16 at 14:00 Meropenem (Merrem 1 Gm/100 ml (Pmx)) 100 ml @ 200 mls/hr Q12 IVPB Last administered on 09/02/16 09:03; Admin Dose 200 MLS/HR; Start 09/01/16 at 09:00 Morphine Sulfate (morphine) 1 mg Q4H PRN IV PAIN LEVEL 6-10 Last administered on 09/01/16 13:38; Admin Dose 1 MG; Start 09/01/16 at 13:30 MARCO DOE September 02, 2016 13:45
[2016-09-02] MEDS: MAGNESIUM OXIDE 400 MG TAB GTB SCH (21:51)
[2016-09-03] VITALS (27 sets, daily range): BP systolic 107–177; BP diastolic 61–97; PULSE 40–63; RESP 12–25
[2016-09-03] MEDS: MEROPENEM 1 GM/100 ML (PMX) 100 ML IVPB SCH ×3 (00:41→21:43)
[2016-09-03] MEDS: VANCOMYCIN 750 MG in SOD CHLORIDE 0.9% 150 ML IVPB SCH (05:59)
[2016-09-03 06:53] LABS: ADD SCAN DIFF NO
[2016-09-03 07:00] LABS: BASOPHILS % 0.2 % (0.0-2.0); EOSINOPHILS # 0.3 10^3/ul (0.0-0.5); EOSINOPHILS % 3.2 % (0.0-7.0); HEMATOCRIT 25.7 % (42.0-52.0); HEMOGLOBIN 8.1 g/dl (14.0-18.0); LYMPHOCYTES # 2.3 10^3/ul (0.8-2.9); LYMPHOCYTES % 27.1 % (15.0-51.0); MEAN CORPUSCULAR HEMOGLOBIN 29.7 pg (29.0-33.0); MEAN CORPUSCULAR HGB CONC 31.5 g/dl (32.0-37.0); MEAN CORPUSCULAR VOLUME 94.1 fl (82.0-101.0); MEAN PLATELET VOLUME 10.2 fl (7.4-10.4); MONOCYTE # 1.1 10^3/ul (0.3-0.9); MONOCYTES % 12.8 % (0.0-11.0); NEUTROPHIL # 4.9 10^3/ul (1.6-7.5); NEUTROPHILS % 56.5 % (39.0-77.0); PLATELET COUNT 310 10^3/UL (140-415); RED BLOOD COUNT 2.73 10^6/ul (4.70-6.10); RED CELL DISTRIBUTION WIDTH 15.2 % (11.5-14.5); WHITE BLOOD COUNT 8.6 10^3/ul (4.8-10.8)
[2016-09-03 07:32] LABS: CALCIUM 8.1 mg/dl (8.4-10.2); CREATININE 0.49 mg/dl (0.61-1.24); POTASSIUM 4.1 mmol/L (3.5-5.1)
[2016-09-03] MEDS: COLLAGENASE 30 GM TUBE TOP SCH (09:00)
[2016-09-03] MEDS: FERROUS SULFATE 60 MG/ML 5ML CUP GTB SCH ×2 (09:41→21:40)
[2016-09-03] MEDS: DOCUSATE SODIUM 10 MG/ML (10ML CUP) GTB SCH ×2 (09:41→21:37)
[2016-09-03] MEDS: FINASTERIDE 5 MG TAB GTB SCH (09:41)
[2016-09-03] MEDS: GABAPENTIN 300 MG CAP GTB SCH ×2 (09:41→21:41)
[2016-09-03] MEDS: MULTIVITAMINS THERAPEUTIC TAB GTB SCH (09:41)
[2016-09-03] MEDS: PANTOPRAZOLE (EC) 40 MG TAB PO SCH (09:41)
[2016-09-03] MEDS: BENAZEPRIL 40 MG TAB GTB SCH (09:42)
[2016-09-03] MEDS: CARBIDOPA/LEVODOPA (25/100) TAB GTB SCH ×2 (09:42→21:41)
[2016-09-03] MEDS: morphine 2 MG INJ IV PRN ×2 (09:42→16:31)
--- NOTE | 2016-09-03 11:08 | CONS ---
Date/Time of Note Date/Time of Note DATE: 09/03/16 TIME: 11:07 Consult Date/Type/Reason Admit Date/Time Aug 26, 2016 at 06:53 Initial Consult Date 08/25/16 Type of Consultation: pulmonary ICU Subjective Continues mechanical ventilation appears comfortable at rest Objective Vital Signs Date Time Temp Pulse Resp B/P Pulse Ox O2 Delivery O2 Flow Rate FiO2 09/03/16 09:12 30 09/03/16 09:10 54 24 98 09/03/16 07:37 97.9 174/77 09/01/16 16:00 Mechanical Ventilator Intake and Output 09/02/16 09/02/16 09/03/16 15:00 23:00 07:00 Intake Total 960 ml 860 ml Output Total 500 ml 650 ml Balance 460 ml 210 ml Exam PHYSICAL EXAMINATION GENERAL: Elderly gentleman on mechanical ventilation comfortable at rest VITAL SIGNS: see below. HEENT: Pupils equal, round, and reactive to light. Tracheostomy site clean and intact. CARDIAC: S1, S2, 2/6 systolic ejection murmur CHEST: Diminished air entry bilaterally. ABDOMEN: Mildly distended. Bowel Sounds present no guarding or rebound EXTREMITIES: No cyanosis, clubbing edema +1 NEUROLOGIC: Generalized weakness Results/Medications Result Diagram: 09/03/16 0545 09/03/16 0545 Results 24 hrs Laboratory Tests Test 09/03/16 05:45 White Blood Count 8.6 Red Blood Count 2.73 L Hemoglobin 8.1 L Hematocrit 25.7 L Mean Corpuscular Volume 94.1 Mean Corpuscular Hemoglobin 29.7 Mean Corpuscular Hemoglobin Concent 31.5 L Red Cell Distribution Width 15.2 H Platelet Count 310 Mean Platelet Volume 10.2 Neutrophils % 56.5 Lymphocytes % 27.1 Monocytes % 12.8 H Eosinophils % 3.2 Basophils % 0.2 Nucleated Red Blood Cells % 0.0 Neutrophils # 4.9 Lymphocytes # 2.3 Monocytes # 1.1 H Eosinophils # 0.3 Basophils # 0.0 Nucleated Red Blood Cells # 0.0 Sodium Level 136 Potassium Level 4.1 Chloride Level 103 Carbon Dioxide Level 29 Anion Gap 8 Blood Urea Nitrogen 18 Creatinine 0.49 L Glucose Level 117 Calcium Level 8.1 L Medications Current Medications Benazepril HCl (Lotensin) 40 mg DAILY GTB Last administered on 09/03/16t 09:42; Admin Dose 40 MG; Start 08/26/16 at 09:00 Carbidopa/Levodopa (Sinemet (25/ 100)) 0.5 tab BID GTB Last administered on 09/03 09:42; Admin Dose 0.5 TAB; Start 08/25/16 at 21:00 Clonidine (Catapres) 0.1 mg Q6 PRN GTB SBP>160 Last administered on 09/01/16 23 :49; Admin Dose 0.1 MG; Start 08/25/16 at 13:30 Ferrous Sulfate (Feosol Liquid Cup) 330 mg BID GTB Last administered on 09:41; Admin Dose 330 MG; Start 08/25/16 at 21:00 Finasteride (Proscar) 5 mg DAILY GTB Last administered on 09/03/16 09:41; Admin Dose 5 MG; Start 08/26/16 at 09:00 Gabapentin (Neurontin) 300 mg BID GTB Last administered on 09/03/16 09:41; Admin Dose 300 MG; Start 08/25/16 at 21:00 Acetaminophen/ Hydrocodone Bitart ([place] (5/325)) 1 tab prn GTB Last administered on 09/01/16 09:06; Admin Dose 1 TAB; Start 08/25/16 at 13:30 Albuterol/ Ipratropium (Duoneb) 3 ml Q2HWA PRN INH WHEEZING AND SOB; Start at 13:30 Lorazepam (Ativan) 0.5 mg Q6 PRN GTB ANXIETY Last administered on 09/01/16 12: 04; Admin Dose 0.5 MG; Start 08/25/16 at 13:30 Magnesium Oxide (Mag-Ox 400) 400 mg QHS GTB Last administered on 09/02/16 21:51 ; Admin Dose 400 MG; Start 08/25/16 at 21:00 Multivitamins Therapeutic (Theragran) 1 tab DAILY GTB Last administered on 09:41; Admin Dose 1 TAB; Start 08/26/16 at 09:00 Ondansetron HCl (Zofran Tab) 4 mg Q6H PRN GTB NAUSEA AND/OR VOMITING; Start at 13:30 Pantoprazole (Protonix Tab) 40 mg DAILY PO Last administered on 09/03/16 09:41 ; Admin Dose 40 MG; Start 08/26/16 at 09:00 Acetaminophen (Tylenol Liquid) 650 mg Q6 PRN NGT FEVER GREATER THAN 100.6; Start 08/25/16 at 13:30 Docusate Sodium (Colace Liquid Cup) 100 mg BID GTB Last administered on 09:41; Admin Dose 100 MG; Start 08/25/16 at 21:00 Miscellaneous Information This patient suarez... PRN PRN XX WOUND CARE; Start 08/27 at 03:00 Vancomycin HCl/ Sodium Chloride (Vancocin/NS) 150 ml @ 75 mls/hr Q24H IVPB Last administered on 09/03/16 05:59; Admin Dose 75 MLS/HR; Start 08/31/16 at 06: 00 Collagenase (Santyl) 1 applic DAILY TOP Last administered on 09/01/16 08:52; Admin Dose 1 APPLIC; Start 08/30/16 at 21:00 IV Flush 10 ml 10 ml PRN PRN IV IV PROTOCOL; Start 08/30/16 at 14:00 Meropenem (Merrem 1 Gm/100 ml (Pmx)) 100 ml @ 200 mls/hr Q12 IVPB Last administered on 09/03/16 09:43; Admin Dose 200 MLS/HR; Start 09/01/16 at 09:00 Morphine Sulfate (morphine) 1 mg Q4H PRN IV PAIN LEVEL 6-10 Last administered on 09/03/16 09:42; Admin Dose 1 MG; Start 09/01/16 at 13:30 Assessment/Plan Chief Complaint/Hosp Course Assessment 1. Resolving sepsis 2. Vent dependent respiratory failure, with acute on chronic hypoxemic respiratory failure 3. Healthcare associated pneumonia 4. History of Parkinson's disease 5. Anemia likely of chronic disease 6. Dysphagia with G-tube Plan 1. Continue mechanical ventilation, stable on volume control ventilation 2. Continue PICC line care 3. Antibiotics per primary team, consider de-escalation soon 4. Monitor H&H 5. Hold off sedation 6. Continue tube feeding as tolerated 7. DVT and GI prophylaxis Disposition Discharge planning Problems: INDER LONDON MD, [facility] September 03, 2016 11:08
[2016-09-03] MEDS: HYDROCODONE/APAP (5/325) TAB GTB SCH (11:42)
[2016-09-03] MEDS ORDERED: HYDROCODONE/APAP (5/325) TAB GTB PRN (13:12)
[2016-09-03] MEDS: ARTIFICIAL TEARS 15 ML OPH BOTH EYES SCH ×3 (13:31→21:41)
--- NOTE | 2016-09-03 13:39 | PN ---
Date/Time of Note Date/Time of Note DATE: 09/03/16 TIME: 13:21 Assessment/Plan VTE Prophylaxis VTE Prophylaxis Intervention: other Lines/Catheters IV Catheter Type (from Nrs): PICC Line Central line still needed: Yes Urinary Cath still in place: Yes Reason Cath still needed: urinary retention Assessment/Plan Assessment/Plan - Sepsis secondary to pneumonia and UTI, continue antibiotics per ID - per Dr. Shine is following infection disease consultation. - HCAP- resolved. mak Casey- okd per pulmonary to transfer. will get nurse case manager for SNF placement when bed available. -Pseudomonas UTI. -Ventilator dependent respiratory failure with tracheostomy, with acute on chronic hypoxemic respiratory failure. is following in pulmonology consultation, continue bronchodilators and ventilatory support. -Prerenal azotemia, resolved. - Cervical myelopathy, status post cervical spine and upper thoracic spine surgery. 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 -Dysphagia with PEG. -HTN -CHF -GOUT -Cervical Stenosis -BPH -Sacral and heel pressure ulcers, continue current wound care, offloading. - GERD Further recommendations based on clinical course. anticipate transfer to SNF when bed available, Plan of care discussed with Dr. Manriquez. Subjective 24 Hr Interval Summary Free Text/Dictation resting, afebrile, no acute events reported overnight. dw staff. Exam/Review of Systems Vital Signs Vitals Vital Signs Date Time Temp Pulse Resp B/P Pulse Ox O2 Delivery O2 Flow Rate FiO2 09/03/16 12:48 52 09/03/16 11:25 98.0 19 168/76 100 09/03/16 11:05 30 09/01/16 16:00 Mechanical Ventilator Intake and Output 09/02/16 09/02/16 09/03/16 15:00 23:00 07:00 Intake Total 960 ml 860 ml Output Total 500 ml 650 ml Balance 460 ml 210 ml Exam Constitutional: alert, well developed Eyes: nl sclera ENMT: nl external ears & nose Neck: non-tender Respiratory: normal air movement Cardiovascular: nl pulses Gastrointestinal: non-tender, soft Musculoskeletal: nl extremities to inspection Extremities: normal pulses Neurological: nl mental status, nl speech Skin: nl turgor Lymph: nontender Results Result Diagram: 5/6/17 0545 5/6/17 0545 Results 24 hrs Laboratory Tests Test 09/03/16 05:45 White Blood Count 8.6 Red Blood Count 2.73 L Hemoglobin 8.1 L Hematocrit 25.7 L Mean Corpuscular Volume 94.1 Mean Corpuscular Hemoglobin 29.7 Mean Corpuscular Hemoglobin Concent 31.5 L Red Cell Distribution Width 15.2 H Platelet Count 310 Mean Platelet Volume 10.2 Neutrophils % 56.5 Lymphocytes % 27.1 Monocytes % 12.8 H Eosinophils % 3.2 Basophils % 0.2 Nucleated Red Blood Cells % 0.0 Neutrophils # 4.9 Lymphocytes # 2.3 Monocytes # 1.1 H Eosinophils # 0.3 Basophils # 0.0 Nucleated Red Blood Cells # 0.0 Sodium Level 136 Potassium Level 4.1 Chloride Level 103 Carbon Dioxide Level 29 Anion Gap 8 Blood Urea Nitrogen 18 Creatinine 0.49 L Glucose Level 117 Calcium Level 8.1 L Medications Medications Current Medications Benazepril HCl (Lotensin) 40 mg DAILY GTB Last administered on 09/03/16 09:42; Admin Dose 40 MG; Start 08/26/16 at 09:00 Carbidopa/Levodopa (Sinemet (25/ 100)) 0.5 tab BID GTB Last administered on 09/03 09:42; Admin Dose 0.5 TAB; Start 08/25/16 at 21:00 Clonidine (Catapres) 0.1 mg Q6 PRN GTB SBP>160 Last administered on 09/01/16 23 :49; Admin Dose 0.1 MG; Start 08/25/16 at 13:30 Ferrous Sulfate (Feosol Liquid Cup) 330 mg BID GTB Last administered on 09:41; Admin Dose 330 MG; Start 08/25/16 at 21:00 Finasteride (Proscar) 5 mg DAILY GTB Last administered on 09/03/16 09:41; Admin Dose 5 MG; Start 08/26/16 at 09:00 Gabapentin (Neurontin) 300 mg BID GTB Last administered on 09/03/16 09:41; Admin Dose 300 MG; Start 08/25/16 at 21:00 Albuterol/ Ipratropium (Duoneb) 3 ml Q2HWA PRN INH WHEEZING AND SOB; Start at 13:30 Lorazepam (Ativan) 0.5 mg Q6 PRN GTB ANXIETY Last administered on 09/01/16 12: 04; Admin Dose 0.5 MG; Start 08/25/16 at 13:30 Magnesium Oxide (Mag-Ox 400) 400 mg QHS GTB Last administered on 09/02/16 21:51 ; Admin Dose 400 MG; Start 08/25/16 at 21:00 Multivitamins Therapeutic (Theragran) 1 tab DAILY GTB Last administered on 09:41; Admin Dose 1 TAB; Start 08/26/16 at 09:00 Ondansetron HCl (Zofran Tab) 4 mg Q6H PRN GTB NAUSEA AND/OR VOMITING; Start at 13:30 Pantoprazole (Protonix Tab) 40 mg DAILY PO Last administered on 09/03/16 09:41 ; Admin Dose 40 MG; Start 08/26/16 at 09:00 Acetaminophen (Tylenol Liquid) 650 mg Q6 PRN NGT FEVER GREATER THAN 100.6; Start 08/25/16 at 13:30 Docusate Sodium (Colace Liquid Cup) 100 mg BID GTB Last administered on 09:41; Admin Dose 100 MG; Start 08/25/16 at 21:00 Miscellaneous Information This patient suarez... PRN PRN XX WOUND CARE; Start 08/27 at 03:00 Vancomycin HCl/ Sodium Chloride (Vancocin/NS) 150 ml @ 75 mls/hr Q24H IVPB Last administered on 09/03/16 05:59; Admin Dose 75 MLS/HR; Start 08/31/16 at 06: 00 Collagenase (Santyl) 1 applic DAILY TOP Last administered on 09/01/16 08:52; Admin Dose 1 APPLIC; Start 08/30/16 at 21:00 IV Flush 10 ml 10 ml PRN PRN IV IV PROTOCOL; Start 08/30/16 at 14:00 Meropenem (Merrem 1 Gm/100 ml (Pmx)) 100 ml @ 200 mls/hr Q12 IVPB Last administered on 09/03/16 09:43; Admin Dose 200 MLS/HR; Start 09/01/16 at 09:00 Morphine Sulfate (morphine) 1 mg Q4H PRN IV PAIN LEVEL 6-10 Last administered on 09/03/16 09:42; Admin Dose 1 MG; Start 09/01/16 at 13:30 Acetaminophen/ Hydrocodone Bitart ([place] (5)) 1 tab Q6H PRN GTB PAIN LEVEL 6-10; Start 09/03/16 at 13:12 Eye Lubricant (Artificial Tears Oph) 2 drop QID BOTH EYES ; Start 09/03/16 at 13: 30; Status GEOVANNY COBB September 03, 2016 13:39
--- NOTE | 2016-09-03 20:37 | CONS ---
Date/Time of Note Date/Time of Note DATE: 09/03/16 TIME: 20:37 Assessment/Plan Assessment/Plan Chief Complaint/Hosp Course SUBJECTIVE: No events overnight. No fevers. The patient is lying comfortably in bed. ANTIMICROBIALS: 1. Vancomycin. 2. Merrem. INDWELLINGS: Trach, PEG, [place]. PHYSICAL EXAMINATION: GENERAL: Well-developed, fragile, elderly man who is in no distress. HEENT: Head atraumatic, normocephalic. Sclerae anicteric. Buccal mucosa dry. NECK: Supple. Tracheostomy present. CHEST: Rise symmetrical. Breath sounds with scattered rhonchi. HEART: S1, S2. ABDOMEN: Soft, bowel tones present. EXTREMITIES: Without cyanosis. ASSESSMENT: 1. Status post sepsis. 2. Pseudomonas aeruginosa urinary tract infection. 3. Healthcare-associated pneumonia. 4. Dysphagia. 5. Anemia. PLAN: The patient remains stable. Continue present care. Complete antibiotics , follow pulmonary recommendations. DW staff Problems: Consultation Date/Type/Reason Admit Date/Time Aug 26, 2016 at 06:53 Initial Consult Date 08/25/16 Type of Consultation: ID Exam/Review of Systems Vital Signs Vitals Vital Signs Date Time Temp Pulse Resp B/P Pulse Ox O2 Delivery O2 Flow Rate FiO2 09/03/16 19:55 97.9 56 18 150/78 100 09/03/16 19:39 30 09/01/16 16:00 Mechanical Ventilator Intake and Output 09/02/16 09/02/16 09/03/16 15:00 23:00 07:00 Intake Total 960 ml 860 ml Output Total 500 ml 650 ml Balance 460 ml 210 ml Results Result Diagram: 09/03/16 0545 09/03/16 0545 Results 24 hrs Laboratory Tests Test 09/03/16 05:45 White Blood Count 8.6 Red Blood Count 2.73 L Hemoglobin 8.1 L Hematocrit 25.7 L Mean Corpuscular Volume 94.1 Mean Corpuscular Hemoglobin 29.7 Mean Corpuscular Hemoglobin Concent 31.5 L Red Cell Distribution Width 15.2 H Platelet Count 310 Mean Platelet Volume 10.2 Neutrophils % 56.5 Lymphocytes % 27.1 Monocytes % 12.8 H Eosinophils % 3.2 Basophils % 0.2 Nucleated Red Blood Cells % 0.0 Neutrophils # 4.9 Lymphocytes # 2.3 Monocytes # 1.1 H Eosinophils # 0.3 Basophils # 0.0 Nucleated Red Blood Cells # 0.0 Sodium Level 136 Potassium Level 4.1 Chloride Level 103 Carbon Dioxide Level 29 Anion Gap 8 Blood Urea Nitrogen 18 Creatinine 0.49 L Glucose Level 117 Calcium Level 8.1 L Medications Medications Current Medications Benazepril HCl (Lotensin) 40 mg DAILY GTB Last administered on 09/03/16 09:42; Admin Dose 40 MG; Start 08/26/16 at 09:00 Carbidopa/Levodopa (Sinemet (25/ )) 0.5 tab BID GTB Last administered on 09/03 09:42; Admin Dose 0.5 TAB; Start 08/25/16 at 21:00 Clonidine (Catapres) 0.1 mg Q6 PRN GTB SBP>160 Last administered on 09/03/16 16 :30; Admin Dose 0.1 MG; Start 08/25/16 at 13:30 Ferrous Sulfate (Feosol Liquid Cup) 330 mg BID GTB Last administered on 09:41; Admin Dose 330 MG; Start 08/25/16 at 21:00 Finasteride (Proscar) 5 mg DAILY GTB Last administered on 09/03/16 09:41; Admin Dose 5 MG; Start 08/26/16 at 09:00 Gabapentin (Neurontin) 300 mg BID GTB Last administered on 09/03/16 09:41; Admin Dose 300 MG; Start 08/25/16 at 21:00 Albuterol/ Ipratropium (Duoneb) 3 ml Q2HWA PRN INH WHEEZING AND SOB; Start at 13:30 Lorazepam (Ativan) 0.5 mg Q6 PRN GTB ANXIETY Last administered on 09/01/16 12: 04; Admin Dose 0.5 MG; Start 08/25/16 at 13:30 Magnesium Oxide (Mag-Ox 400) 400 mg QHS GTB Last administered on 09/02/16 21:51 ; Admin Dose 400 MG; Start 08/25/16 at 21:00 Multivitamins Therapeutic (Theragran) 1 tab DAILY GTB Last administered on 09:41; Admin Dose 1 TAB; Start 08/26/16 at 09:00 Ondansetron HCl (Zofran Tab) 4 mg Q6H PRN GTB NAUSEA AND/OR VOMITING; Start at 13:30 Pantoprazole (Protonix Tab) 40 mg DAILY PO Last administered on 09/03/16 09:41 ; Admin Dose 40 MG; Start 08/26/16 at 09:00 Acetaminophen (Tylenol Liquid) 650 mg Q6 PRN NGT FEVER GREATER THAN 100.6; Start 08/25/16 at 13:30 Docusate Sodium (Colace Liquid Cup) 100 mg BID GTB Last administered on 09:41; Admin Dose 100 MG; Start 08/25/16 at 21:00 Miscellaneous Information This patient suarez... PRN PRN XX WOUND CARE; Start 08/27 at 03:00 Vancomycin HCl/ Sodium Chloride (Vancocin/NS) 150 ml @ 75 mls/hr Q24H IVPB Last administered on 09/03/16 05:59; Admin Dose 75 MLS/HR; Start 08/31/16 at 06: 00 Collagenase (Santyl) 1 applic DAILY TOP Last administered on 09/01/16 08:52; Admin Dose 1 APPLIC; Start 08/30/16 at 21:00 IV Flush 10 ml 10 ml PRN PRN IV IV PROTOCOL; Start 08/30/16 at 14:00 Meropenem (Merrem 1 Gm/100 ml (Pmx)) 100 ml @ 200 mls/hr Q12 IVPB Last administered on 09/03/16 09:43; Admin Dose 200 MLS/HR; Start 09/01/16 at 09:00 Morphine Sulfate (morphine) 1 mg Q4H PRN IV PAIN LEVEL 6-10 Last administered on 09/03/16 16:31; Admin Dose 1 MG; Start 09/01/16 at 13:30 Acetaminophen/ Hydrocodone Bitart ([place] (5/325)) 1 tab Q6H PRN GTB PAIN LEVEL 6-10; Start 09/03/16 at 13:12 Eye Lubricant (Artificial Tears Oph) 2 drop QID BOTH EYES Last administered on 09/03/16 16:31; Admin Dose 2 DROP; Start 09/03/16 at 14:30 Miscellaneous Information (*Rx Drug Level Order Reminder*) VANCOMYCIN TROUGH 09/04 AT 0500 ONCE ONCE XX ; Start 09/04/16 at 05:00; Stop 09/04/16 at 05:01 MARI GOODE NP September 03, 2016 20:37
[2016-09-03] MEDS: MAGNESIUM OXIDE 400 MG TAB GTB SCH (21:41)
[2016-09-04] VITALS (25 sets, daily range): BP systolic 143–202; BP diastolic 67–76; PULSE 40–58; RESP 12–20
[2016-09-04 06:00] LABS: ADD SCAN DIFF NO
[2016-09-04 06:10] LABS: BASOPHILS % 0.3 % (0.0-2.0); EOSINOPHILS # 0.4 10^3/ul (0.0-0.5); EOSINOPHILS % 5.3 % (0.0-7.0); HEMATOCRIT 25.7 % (42.0-52.0); LYMPHOCYTES # 2.4 10^3/ul (0.8-2.9); LYMPHOCYTES % 30.1 % (15.0-51.0); MEAN CORPUSCULAR HEMOGLOBIN 29.4 pg (29.0-33.0); MEAN CORPUSCULAR HGB CONC 31.1 g/dl (32.0-37.0); MEAN CORPUSCULAR VOLUME 94.5 fl (82.0-101.0); MEAN PLATELET VOLUME 10.1 fl (7.4-10.4); MONOCYTE # 0.9 10^3/ul (0.3-0.9); MONOCYTES % 11.4 % (0.0-11.0); NEUTROPHIL # 4.1 10^3/ul (1.6-7.5); NEUTROPHILS % 52.5 % (39.0-77.0); PLATELET COUNT 303 10^3/UL (140-415); RED BLOOD COUNT 2.72 10^6/ul (4.70-6.10); RED CELL DISTRIBUTION WIDTH 15.4 % (11.5-14.5); WHITE BLOOD COUNT 7.9 10^3/ul (4.8-10.8)
[2016-09-04] MEDS: VANCOMYCIN 750 MG in SOD CHLORIDE 0.9% 150 ML IVPB SCH (06:29)
[2016-09-04 06:33] LABS: CREATININE 0.47 mg/dl (0.61-1.24)
[2016-09-04 06:34] LABS: CALCIUM 8.2 mg/dl (8.4-10.2)
[2016-09-04 06:57] LABS: POTASSIUM 4.1 mmol/L (3.5-5.1)
[2016-09-04] MEDS: FERROUS SULFATE 60 MG/ML 5ML CUP GTB SCH ×2 (07:37→21:44)
[2016-09-04] MEDS: CARBIDOPA/LEVODOPA (25/100) TAB GTB SCH ×2 (07:38→21:44)
[2016-09-04] MEDS: LORAZEPAM 0.5 MG TAB GTB PRN (07:38)
[2016-09-04] MEDS: FINASTERIDE 5 MG TAB GTB SCH (07:39)
[2016-09-04] MEDS: BENAZEPRIL 40 MG TAB GTB SCH (07:39)
[2016-09-04] MEDS: PANTOPRAZOLE (EC) 40 MG TAB PO SCH (07:39)
[2016-09-04] MEDS: GABAPENTIN 300 MG CAP GTB SCH ×2 (07:39→21:43)
[2016-09-04] MEDS: MULTIVITAMINS THERAPEUTIC TAB GTB SCH (07:39)
[2016-09-04] MEDS: MEROPENEM 1 GM/100 ML (PMX) 100 ML IVPB SCH ×2 (07:40→21:44)
[2016-09-04] MEDS: ARTIFICIAL TEARS 15 ML OPH BOTH EYES SCH ×4 (07:40→21:44)
[2016-09-04] MEDS: COLLAGENASE 30 GM TUBE TOP SCH (07:40)
[2016-09-04] MEDS: DOCUSATE SODIUM 10 MG/ML (10ML CUP) GTB SCH ×2 (07:41→21:44)
--- NOTE | 2016-09-04 14:14 | CONS ---
Date/Time of Note Date/Time of Note DATE: 09/04/16 TIME: 14:13 Consult Date/Type/Reason Admit Date/Time Aug 26, 2016 at 06:53 Initial Consult Date 08/25/16 Type of Consultation: pulmonary Subjective Patient comfortable this morning Objective Vital Signs Date Time Temp Pulse Resp B/P Pulse Ox O2 Delivery O2 Flow Rate FiO2 09/04/16 12:30 40 09/04/16 11:10 13 99 30 09/04/16 11:03 98.0 163/69 09/01/16 16:00 Mechanical Ventilator Intake and Output 09/03/16 09/03/16 09/04/16 15:00 23:00 07:00 Intake Total 920 ml 900 ml Output Total 400 ml 1200 ml Balance 520 ml -300 ml Exam PHYSICAL EXAMINATION GENERAL: Elderly gentleman on mechanical ventilation comfortable at rest VITAL SIGNS: see below. HEENT: Pupils equal, round, and reactive to light. Tracheostomy site clean and intact. CARDIAC: S1, S2, 2/6 systolic ejection murmur CHEST: Diminished air entry bilaterally. ABDOMEN: Mildly distended. Bowel Sounds present no guarding or rebound EXTREMITIES: No cyanosis, clubbing edema +1 NEUROLOGIC: Generalized weakness Results/Medications Result Diagram: 09/04/16 0525 09/04/16 0525 Results 24 hrs Laboratory Tests Test 09/04/16 05:25 White Blood Count 7.9 Red Blood Count 2.72 L Hemoglobin 8.0 L Hematocrit 25.7 L Mean Corpuscular Volume 94.5 Mean Corpuscular Hemoglobin 29.4 Mean Corpuscular Hemoglobin Concent 31.1 L Red Cell Distribution Width 15.4 H Platelet Count 303 Mean Platelet Volume 10.1 Neutrophils % 52.5 Lymphocytes % 30.1 Monocytes % 11.4 H Eosinophils % 5.3 Basophils % 0.3 Nucleated Red Blood Cells % 0.0 Neutrophils # 4.1 Lymphocytes # 2.4 Monocytes # 0.9 Eosinophils # 0.4 Basophils # 0.0 Nucleated Red Blood Cells # 0.0 Sodium Level 138 Potassium Level 4.1 Chloride Level 101 Carbon Dioxide Level 30 Anion Gap 11 Blood Urea Nitrogen 21 H Creatinine 0.47 L Glucose Level 110 Calcium Level 8.2 L Vancomycin Level Trough 10.9 Medications Current Medications Benazepril HCl (Lotensin) 40 mg DAILY GTB Last administered on 09/04/16t 07:39; Admin Dose 40 MG; Start 4/28/17 at 09:00 Carbidopa/Levodopa (Sinemet (25/ 100)) 0.5 tab BID GTB Last administered on 09/04 07:38; Admin Dose 0.5 TAB; Start 08/25/16 at 21:00 Clonidine (Catapres) 0.1 mg Q6 PRN GTB SBP>160 Last administered on 09/04/16 07 :39; Admin Dose 0.1 MG; Start 08/25/16 at 13:30 Ferrous Sulfate (Feosol Liquid Cup) 330 mg BID GTB Last administered on 07:37; Admin Dose 330 MG; Start 08/25/16 at 21:00 Finasteride (Proscar) 5 mg DAILY GTB Last administered on 09/04/16 07:39; Admin Dose 5 MG; Start 08/26/16 at 09:00 Gabapentin (Neurontin) 300 mg BID GTB Last administered on 09/04/16 07:39; Admin Dose 300 MG; Start 08/25/16 at 21:00 Albuterol/ Ipratropium (Duoneb) 3 ml Q2HWA PRN INH WHEEZING AND SOB; Start at 13:30 Lorazepam (Ativan) 0.5 mg Q6 PRN GTB ANXIETY Last administered on 09/04/16 07: 38; Admin Dose 0.5 MG; Start 08/25/16 at 13:30 Magnesium Oxide (Mag-Ox 400) 400 mg QHS GTB Last administered on 09/03/16 21:41 ; Admin Dose 400 MG; Start 08/25/16 at 21:00 Multivitamins Therapeutic (Theragran) 1 tab DAILY GTB Last administered on 07:39; Admin Dose 1 TAB; Start 08/26/16 at 09:00 Ondansetron HCl (Zofran Tab) 4 mg Q6H PRN GTB NAUSEA AND/OR VOMITING Last administered on 09/04/16 07:38; Admin Dose 4 MG; Start 08/25/16 at 13:30 Pantoprazole (Protonix Tab) 40 mg DAILY PO Last administered on 09/04/16 07:39 ; Admin Dose 40 MG; Start 08/26/16 at 09:00 Acetaminophen (Tylenol Liquid) 650 mg Q6 PRN NGT FEVER GREATER THAN 100.6; Start 08/25/16 at 13:30 Docusate Sodium (Colace Liquid Cup) 100 mg BID GTB Last administered on 07:41; Admin Dose 100 MG; Start 08/25/16 at 21:00 Miscellaneous Information This patient suarez... PRN PRN XX WOUND CARE; Start 08/27 at 03:00 Vancomycin HCl/ Sodium Chloride (Vancocin/NS) 150 ml @ 75 mls/hr Q24H IVPB Last administered on 09/04/16 06:29; Admin Dose 75 MLS/HR; Start 08/31/16 at 06: 00 Collagenase (Santyl) 1 applic DAILY TOP Last administered on 09/01/16 08:52; Admin Dose 1 APPLIC; Start 08/30/16 at 21:00 IV Flush 10 ml 10 ml PRN PRN IV IV PROTOCOL; Start 08/30/16 at 14:00 Meropenem (Merrem 1 Gm/100 ml (Pmx)) 100 ml @ 200 mls/hr Q12 IVPB Last administered on 09/04/16 07:40; Admin Dose 200 MLS/HR; Start 09/01/16 at 09:00 Morphine Sulfate (morphine) 1 mg Q4H PRN IV PAIN LEVEL 6-10 Last administered on 09/03/16 16:31; Admin Dose 1 MG; Start 09/01/16 at 13:30 Acetaminophen/ Hydrocodone Bitart ([place] (5/325)) 1 tab Q6H PRN GTB PAIN LEVEL 6-10 Last administered on 09/04/16 07:38; Admin Dose 1 TAB; Start 09/03/16 at 13: 12 Eye Lubricant (Artificial Tears Oph) 2 drop QID BOTH EYES Last administered on 09/04/16 12:42; Admin Dose 2 DROP; Start 09/03/16 at 14:30 Assessment/Plan Chief Complaint/Hosp Course Assessment 1. Resolved sepsis 2. Vent dependent respiratory failure, with acute on chronic hypoxemic respiratory failure 3. Healthcare associated pneumonia, now improved 4. History of Parkinson's disease 5. Anemia likely of chronic disease 6. Dysphagia with G-tube Plan 1. Continue mechanical ventilation, stable on volume control ventilation 2. Continue PICC line care 3. Consider stopping antibiotics 4. Monitor H&H 5. Hold off sedation 6. Continue tube feeding as tolerated 7. DVT and GI prophylaxis Disposition Discharge planning, discussed with CLINICAL CONSULTANT for primary team Problems: INDER LONDON MD, [facility] September 04, 2016 14:14
--- NOTE | 2016-09-04 14:20 | PN ---
Date/Time of Note Date/Time of Note DATE: 09/04/16 TIME: 13:56 Assessment/Plan VTE Prophylaxis VTE Prophylaxis Intervention: other Lines/Catheters IV Catheter Type (from Nrs): PICC Line Central line still needed: Yes Urinary Cath still in place: Yes Reason Cath still needed: urinary retention Assessment/Plan Assessment/Plan - Bradycardia - stat TSH, ECHO, hold SNF transfer - CARDIOLOGY CONSULT- Dr Yadav notified - cont. to monitor - Sepsis secondary to pneumonia and UTI, continue antibiotics per ID - per Dr. Shine is following infection disease consultation. - HCAP- resolved. mak Casey- okd per pulmonary to transfer. will get caseworker for SNF placement when bed available. -Pseudomonas UTI. -Ventilator dependent respiratory failure with tracheostomy, with acute on chronic hypoxemic respiratory failure. is following in pulmonology consultation, continue bronchodilators and ventilatory support. -Prerenal azotemia, resolved. - Cervical myelopathy, status post cervical spine and upper thoracic spine surgery. 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 -Dysphagia with PEG. -HTN -CHF -GOUT -Cervical Stenosis -BPH -Sacral and heel pressure ulcers, continue current wound care, offloading. - GERD Further recommendations based on clinical course. anticipate transfer to SNF when bed available, Plan of care discussed with Dr. Manriquez. Subjective 24 Hr Interval Summary Free Text/Dictation Patient has episodes of bradycardia x2 in 38's only, will do stat TSH, ECHO and cardiology consult- fu results.dw dr Manriquez and Dr Yadav regarding patient condition. We will postpone patient transfer to SNF. At present, SR- 42, seems comfortable, cont to monitor. dw staff Exam/Review of Systems Vital Signs Vitals Vital Signs Date Time Temp Pulse Resp B/P Pulse Ox O2 Delivery O2 Flow Rate FiO2 09/04/16 12:30 40 09/04/16 11:10 13 99 30 09/04/16 11:03 98.0 163/69 09/01/16 16:00 Mechanical Ventilator Intake and Output 09/03/16 09/03/16 09/04/16 15:00 23:00 07:00 Intake Total 920 ml 900 ml Output Total 400 ml 1200 ml Balance 520 ml -300 ml Exam Constitutional: well developed Eyes: nl sclera ENMT: nl external ears & nose Respiratory: diminished breath sounds Cardiovascular: nl pulses Gastrointestinal: non-tender, soft Musculoskeletal: muscle weakness Extremities: normal pulses Neurological: other Skin: other Lymph: nontender Results Result Diagram: 09/04/1652409/04/16 0525 Results 24 hrs Laboratory Tests Test 09/04/16 05:25 White Blood Count 7.9 Red Blood Count 2.72 L Hemoglobin 8.0 L Hematocrit 25.7 L Mean Corpuscular Volume 94.5 Mean Corpuscular Hemoglobin 29.4 Mean Corpuscular Hemoglobin Concent 31.1 L Red Cell Distribution Width 15.4 H Platelet Count 303 Mean Platelet Volume 10.1 Neutrophils % 52.5 Lymphocytes % 30.1 Monocytes % 11.4 H Eosinophils % 5.3 Basophils % 0.3 Nucleated Red Blood Cells % 0.0 Neutrophils # 4.1 Lymphocytes # 2.4 Monocytes # 0.9 Eosinophils # 0.4 Basophils # 0.0 Nucleated Red Blood Cells # 0.0 Sodium Level 138 Potassium Level 4.1 Chloride Level 101 Carbon Dioxide Level 30 Anion Gap 11 Blood Urea Nitrogen 21 H Creatinine 0.47 L Glucose Level 110 Calcium Level 8.2 L Vancomycin Level Trough 10.9 Medications Medications Current Medications Benazepril HCl (Lotensin) 40 mg DAILY GTB Last administered on 09/04/16 07:39; Admin Dose 40 MG; Start 08/26/16 at 09:00 Carbidopa/Levodopa (Sinemet (25/ 100)) 0.5 tab BID GTB Last administered on 09/04 07:38; Admin Dose 0.5 TAB; Start 08/25/16 at 21:00 Clonidine (Catapres) 0.1 mg Q6 PRN GTB SBP>160 Last administered on 09/04/16 07 :39; Admin Dose 0.1 MG; Start 08/25/16 at 13:30 Ferrous Sulfate (Feosol Liquid Cup) 330 mg BID GTB Last administered on 07:37; Admin Dose 330 MG; Start 08/25/16 at 21:00 Finasteride (Proscar) 5 mg DAILY GTB Last administered on 09/04/16 07:39; Admin Dose 5 MG; Start 08/26/16 at 09:00 Gabapentin (Neurontin) 300 mg BID GTB Last administered on 09/04/16 07:39; Admin Dose 300 MG; Start 08/25/16 at 21:00 Albuterol/ Ipratropium (Duoneb) 3 ml Q2HWA PRN INH WHEEZING AND SOB; Start at 13:30 Lorazepam (Ativan) 0.5 mg Q6 PRN GTB ANXIETY Last administered on 09/04/16 07: 38; Admin Dose 0.5 MG; Start 08/25/16 at 13:30 Magnesium Oxide (Mag-Ox 400) 400 mg QHS GTB Last administered on 09/03/16 21:41 ; Admin Dose 400 MG; Start 08/25/16 at 21:00 Multivitamins Therapeutic (Theragran) 1 tab DAILY GTB Last administered on 07:39; Admin Dose 1 TAB; Start 08/26/16 at 09:00 Ondansetron HCl (Zofran Tab) 4 mg Q6H PRN GTB NAUSEA AND/OR VOMITING Last administered on 09/04/16 07:38; Admin Dose 4 MG; Start 08/25/16 at 13:30 Pantoprazole (Protonix Tab) 40 mg DAILY PO Last administered on 09/04/16 07:39 ; Admin Dose 40 MG; Start 08/26/16 at 09:00 Acetaminophen (Tylenol Liquid) 650 mg Q6 PRN NGT FEVER GREATER THAN 100.6; Start 08/25/16 at 13:30 Docusate Sodium (Colace Liquid Cup) 100 mg BID GTB Last administered on 07:41; Admin Dose 100 MG; Start 08/25/16 at 21:00 Miscellaneous Information This patient suarez... PRN PRN XX WOUND CARE; Start 08/27 at 03:00 Vancomycin HCl/ Sodium Chloride (Vancocin/NS) 150 ml @ 75 mls/hr Q24H IVPB Last administered on 09/04/16 06:29; Admin Dose 75 MLS/HR; Start 08/31/16 at 06: 00 Collagenase (Santyl) 1 applic DAILY TOP Last administered on 09/01/16 08:52; Admin Dose 1 APPLIC; Start 08/30/16 at 21:00 IV Flush 10 ml 10 ml PRN PRN IV IV PROTOCOL; Start 08/30/16 at 14:00 Meropenem (Merrem 1 Gm/100 ml (Pmx)) 100 ml @ 200 mls/hr Q12 IVPB Last administered on 09/04/16 07:40; Admin Dose 200 MLS/HR; Start 09/01/16 at 09:00 Morphine Sulfate (morphine) 1 mg Q4H PRN IV PAIN LEVEL 6-10 Last administered on 09/03/16 16:31; Admin Dose 1 MG; Start 09/01/16 at 13:30 Acetaminophen/ Hydrocodone Bitart ([place] (5/325)) 1 tab Q6H PRN GTB PAIN LEVEL 6-10 Last administered on 09/04/16 07:38; Admin Dose 1 TAB; Start 09/03/16 at 13: 12 Eye Lubricant (Artificial Tears Oph) 2 drop QID BOTH EYES Last administered on 09/04/16 12:42; Admin Dose 2 DROP; Start 09/03/16 at 14:30 GEOVANNY HARRIS September 04, 2016 14:15
--- NOTE | 2016-09-04 16:12 | CONS ---
Date/Time of Note Date/Time of Note DATE: 09/04/16 TIME: 16:11 Assessment/Plan Assessment/Plan Chief Complaint/Hosp Course SUBJECTIVE: No events overnight. No fevers. The patient is lying comfortably in bed. ANTIMICROBIALS: 1. Vancomycin. 2. Merrem. INDWELLINGS: Trach, PEG, Hobbs. PHYSICAL EXAMINATION: GENERAL: Well-developed, fragile, elderly man who is in no distress. HEENT: Head atraumatic, normocephalic. Sclerae anicteric. Buccal mucosa dry. NECK: Supple. Tracheostomy present. CHEST: Rise symmetrical. Breath sounds with scattered rhonchi. HEART: S1, S2. ABDOMEN: Soft, bowel tones present. EXTREMITIES: Without cyanosis. ASSESSMENT: 1. Status post sepsis. 2. Pseudomonas aeruginosa urinary tract infection. 3. Healthcare-associated pneumonia. 4. Dysphagia. 5. Anemia. PLAN: The patient remains stable. Continue present care. Complete antibiotics for couple more days, follow pulmonary recommendations. DW staff Problems: Consultation Date/Type/Reason Admit Date/Time Aug 26, 2016 at 06:53 Initial Consult Date 08/25/16 Type of Consultation: id Exam/Review of Systems Vital Signs Vitals Vital Signs Date Time Temp Pulse Resp B/P Pulse Ox O2 Delivery O2 Flow Rate FiO2 09/04/16 15:30 42 12 98 30 09/04/16 15:15 97.8 194/72 09/01/16 16:00 Mechanical Ventilator Intake and Output 09/03/16 09/03/16 09/04/16 15:00 23:00 07:00 Intake Total 920 ml 900 ml Output Total 400 ml 1200 ml Balance 520 ml -300 ml Results Result Diagram: 09/04/16 0525 09/04/16 0525 Results 24 hrs Laboratory Tests Test 09/04/16 05:25 White Blood Count 7.9 Red Blood Count 2.72 L Hemoglobin 8.0 L Hematocrit 25.7 L Mean Corpuscular Volume 94.5 Mean Corpuscular Hemoglobin 29.4 Mean Corpuscular Hemoglobin Concent 31.1 L Red Cell Distribution Width 15.4 H Platelet Count 303 Mean Platelet Volume 10.1 Neutrophils % 52.5 Lymphocytes % 30.1 Monocytes % 11.4 H Eosinophils % 5.3 Basophils % 0.3 Nucleated Red Blood Cells % 0.0 Neutrophils # 4.1 Lymphocytes # 2.4 Monocytes # 0.9 Eosinophils # 0.4 Basophils # 0.0 Nucleated Red Blood Cells # 0.0 Sodium Level 138 Potassium Level 4.1 Chloride Level 101 Carbon Dioxide Level 30 Anion Gap 11 Blood Urea Nitrogen 21 H Creatinine 0.47 L Glucose Level 110 Calcium Level 8.2 L Thyroid Stimulating Hormone (TSH) 4.130 Vancomycin Level Trough 10.9 Medications Medications Current Medications Benazepril HCl (Lotensin) 40 mg DAILY GTB Last administered on 09/04/16 07:39; Admin Dose 40 MG; Start 08/26/16 at 09:00 Carbidopa/Levodopa (Sinemet (/ )) 0.5 tab BID GTB Last administered on 09/04 07:38; Admin Dose 0.5 TAB; Start 08/25/16 at 21:00 Clonidine (Catapres) 0.1 mg Q6 PRN GTB SBP>160 Last administered on 09/04/16 07 :39; Admin Dose 0.1 MG; Start 08/25/16 at 13:30 Ferrous Sulfate (Feosol Liquid Cup) 330 mg BID GTB Last administered on 07:37; Admin Dose 330 MG; Start 08/25/16 at 21:00 Finasteride (Proscar) 5 mg DAILY GTB Last administered on 09/04/16 07:39; Admin Dose 5 MG; Start 08/26/16 at 09:00 Gabapentin (Neurontin) 300 mg BID GTB Last administered on 09/04/16 07:39; Admin Dose 300 MG; Start 08/25/16 at 21:00 Albuterol/ Ipratropium (Duoneb) 3 ml Q2HWA PRN INH WHEEZING AND SOB; Start at 13:30 Lorazepam (Ativan) 0.5 mg Q6 PRN GTB ANXIETY Last administered on 09/04/16 07: 38; Admin Dose 0.5 MG; Start 08/25/16 at 13:30 Magnesium Oxide (Mag-Ox 400) 400 mg QHS GTB Last administered on 09/03/16 21:41 ; Admin Dose 400 MG; Start 08/25/16 at 21:00 Multivitamins Therapeutic (Theragran) 1 tab DAILY GTB Last administered on 07:39; Admin Dose 1 TAB; Start 08/26/16 at 09:00 Ondansetron HCl (Zofran Tab) 4 mg Q6H PRN GTB NAUSEA AND/OR VOMITING Last administered on 09/04/16 07:38; Admin Dose 4 MG; Start 08/25/16 at 13:30 Pantoprazole (Protonix Tab) 40 mg DAILY PO Last administered on 09/04/16 07:39 ; Admin Dose 40 MG; Start 08/26/16 at 09:00 Acetaminophen (Tylenol Liquid) 650 mg Q6 PRN NGT FEVER GREATER THAN 100.6; Start 08/25/16 at 13:30 Docusate Sodium (Colace Liquid Cup) 100 mg BID GTB Last administered on 07:41; Admin Dose 100 MG; Start 08/25/16 at 21:00 Miscellaneous Information This patient suarez... PRN PRN XX WOUND CARE; Start 08/27 at 03:00 Vancomycin HCl/ Sodium Chloride (Vancocin/NS) 150 ml @ 75 mls/hr Q24H IVPB Last administered on 09/04/16 06:29; Admin Dose 75 MLS/HR; Start 08/31/16 at 06: 00 Collagenase (Santyl) 1 applic DAILY TOP Last administered on 09/01/16 08:52; Admin Dose 1 APPLIC; Start 08/30/16 at 21:00 IV Flush 10 ml 10 ml PRN PRN IV IV PROTOCOL; Start 08/30/16 at 14:00 Meropenem (Merrem 1 Gm/100 ml (Pmx)) 100 ml @ 200 mls/hr Q12 IVPB Last administered on 09/04/16 07:40; Admin Dose 200 MLS/HR; Start 09/01/16 at 09:00 Morphine Sulfate (morphine) 1 mg Q4H PRN IV PAIN LEVEL 6-10 Last administered on 09/03/16 16:31; Admin Dose 1 MG; Start 09/01/16 at 13:30 Acetaminophen/ Hydrocodone Bitart ([place] (5/325)) 1 tab Q6H PRN GTB PAIN LEVEL 6-10 Last administered on 09/04/16 07:38; Admin Dose 1 TAB; Start 09/03/16 at 13: 12 Eye Lubricant (Artificial Tears Oph) 2 drop QID BOTH EYES Last administered on 5/7/17at 12:42; Admin Dose 2 DROP; Start 09/03/16 at 14:30 MARI GOODE NP September 04, 2016 16:12
[2016-09-04] MEDS: MAGNESIUM OXIDE 400 MG TAB GTB SCH (21:43)
[2016-09-05] VITALS (26 sets, daily range): BP systolic 135–199; BP diastolic 53–88; PULSE 46–63; RESP 14–20
[2016-09-05] MEDS: VANCOMYCIN 750 MG in SOD CHLORIDE 0.9% 150 ML IVPB SCH (05:56)
[2016-09-05 07:27] LABS: ADD SCAN DIFF NO
[2016-09-05 07:36] LABS: BASOPHILS % 0.5 % (0.0-2.0); EOSINOPHILS # 0.4 10^3/ul (0.0-0.5); EOSINOPHILS % 6.7 % (0.0-7.0); HEMATOCRIT 26.2 % (42.0-52.0); HEMOGLOBIN 8.4 g/dl (14.0-18.0); LYMPHOCYTES % 32.1 % (15.0-51.0); MEAN CORPUSCULAR HEMOGLOBIN 30.3 pg (29.0-33.0); MEAN CORPUSCULAR HGB CONC 32.1 g/dl (32.0-37.0); MEAN CORPUSCULAR VOLUME 94.6 fl (82.0-101.0); MEAN PLATELET VOLUME 10.9 fl (7.4-10.4); MONOCYTE # 0.8 10^3/ul (0.3-0.9); MONOCYTES % 12.3 % (0.0-11.0); NEUTROPHILS % 48.1 % (39.0-77.0); PLATELET COUNT 327 10^3/UL (140-415); RED BLOOD COUNT 2.77 10^6/ul (4.70-6.10); RED CELL DISTRIBUTION WIDTH 15.2 % (11.5-14.5); WHITE BLOOD COUNT 6.2 10^3/ul (4.8-10.8)
[2016-09-05 07:59] LABS: CALCIUM 8.4 mg/dl (8.4-10.2); CREATININE 0.52 mg/dl (0.61-1.24); POTASSIUM 4.4 mmol/L (3.5-5.1)
[2016-09-05] MEDS: COLLAGENASE 30 GM TUBE TOP SCH (09:23)
[2016-09-05] MEDS: ARTIFICIAL TEARS 15 ML OPH BOTH EYES SCH ×4 (09:24→20:02)
[2016-09-05] MEDS: DOCUSATE SODIUM 10 MG/ML (10ML CUP) GTB SCH ×2 (09:24→20:02)
[2016-09-05] MEDS: FERROUS SULFATE 60 MG/ML 5ML CUP GTB SCH ×2 (09:24→20:02)
[2016-09-05] MEDS: BENAZEPRIL 40 MG TAB GTB SCH (09:26)
[2016-09-05] MEDS: PANTOPRAZOLE (EC) 40 MG TAB PO SCH (09:26)
[2016-09-05] MEDS: FINASTERIDE 5 MG TAB GTB SCH (09:26)
[2016-09-05] MEDS: MULTIVITAMINS THERAPEUTIC TAB GTB SCH (09:26)
[2016-09-05] MEDS: GABAPENTIN 300 MG CAP GTB SCH ×2 (09:26→20:02)
[2016-09-05] MEDS: CARBIDOPA/LEVODOPA (25/100) TAB GTB SCH ×2 (09:26→20:02)
[2016-09-05] MEDS: MEROPENEM 1 GM/100 ML (PMX) 100 ML IVPB SCH (09:44)
--- NOTE | 2016-09-05 11:12 | CONS ---
Date/Time of Note Date/Time of Note DATE: 09/05/16 TIME: 11:11 Consult Date/Type/Reason Admit Date/Time Aug 26, 2016 at 06:53 Initial Consult Date 08/25/16 Type of Consultation: pulmonary Subjective No new events patient remains at baseline bradycardia Objective Vital Signs Date Time Temp Pulse Resp B/P Pulse Ox O2 Delivery O2 Flow Rate FiO2 09/05/16 09:00 52 16 99 30 09/05/16 07:39 98.0 158/70 09/01/16 16:00 Mechanical Ventilator Intake and Output 09/04/16 09/04/16 09/05/16 15:00 23:00 07:00 Intake Total 1020 ml 920 ml Output Total 450 ml 600 ml Balance 570 ml 320 ml Exam PHYSICAL EXAMINATION GENERAL: Elderly gentleman on mechanical ventilation comfortable at rest VITAL SIGNS: see below. HEENT: Pupils equal, round, and reactive to light. Tracheostomy site clean and intact. CARDIAC: S1, S2, 2/6 systolic ejection murmur CHEST: Diminished air entry bilaterally. ABDOMEN: Mildly distended. Bowel Sounds present no guarding or rebound EXTREMITIES: No cyanosis, clubbing edema +1 NEUROLOGIC: Generalized weakness Results/Medications Result Diagram: 09/05/16 0545 09/05/16 0545 Results 24 hrs Laboratory Tests Test 09/05/16 05:45 White Blood Count 6.2 # Red Blood Count 2.77 L Hemoglobin 8.4 L Hematocrit 26.2 L Mean Corpuscular Volume 94.6 Mean Corpuscular Hemoglobin 30.3 Mean Corpuscular Hemoglobin Concent 32.1 Red Cell Distribution Width 15.2 H Platelet Count 327 Mean Platelet Volume 10.9 H Neutrophils % 48.1 Lymphocytes % 32.1 Monocytes % 12.3 H Eosinophils % 6.7 Basophils % 0.5 Nucleated Red Blood Cells % 0.0 Neutrophils # 3.0 Lymphocytes # 2.0 Monocytes # 0.8 Eosinophils # 0.4 Basophils # 0.0 Nucleated Red Blood Cells # 0.0 Sodium Level 136 Potassium Level 4.4 Chloride Level 103 Carbon Dioxide Level 29 Anion Gap 8 Blood Urea Nitrogen 19 Creatinine 0.52 L Glucose Level 127 Calcium Level 8.4 Medications Current Medications Benazepril HCl (Lotensin) 40 mg DAILY GTB Last administered on 09/05/16t 09:26; Admin Dose 40 MG; Start 08/26/16 at 09:00 Carbidopa/Levodopa (Sinemet (25/ 100)) 0.5 tab BID GTB Last administered on 09/05 09:26; Admin Dose 0.5 TAB; Start 08/25/16 at 21:00 Clonidine (Catapres) 0.1 mg Q6 PRN GTB SBP>160 Last administered on 09/05/16 04 :16; Admin Dose 0.1 MG; Start 08/25/16 at 13:30 Ferrous Sulfate (Feosol Liquid Cup) 330 mg BID GTB Last administered on 09:24; Admin Dose 330 MG; Start 08/25/16 at 21:00 Finasteride (Proscar) 5 mg DAILY GTB Last administered on 09/05/16 09:26; Admin Dose 5 MG; Start 08/26/16 at 09:00 Gabapentin (Neurontin) 300 mg BID GTB Last administered on 09/05/16 09:26; Admin Dose 300 MG; Start 08/25/16 at 21:00 Albuterol/ Ipratropium (Duoneb) 3 ml Q2HWA PRN INH WHEEZING AND SOB; Start at 13:30 Lorazepam (Ativan) 0.5 mg Q6 PRN GTB ANXIETY Last administered on 09/04/16 07: 38; Admin Dose 0.5 MG; Start 08/25/16 at 13:30 Magnesium Oxide (Mag-Ox 400) 400 mg QHS GTB Last administered on 09/04/16 21:43 ; Admin Dose 400 MG; Start 08/25/16 at 21:00 Multivitamins Therapeutic (Theragran) 1 tab DAILY GTB Last administered on 09:26; Admin Dose 1 TAB; Start 08/26/16 at 09:00 Ondansetron HCl (Zofran Tab) 4 mg Q6H PRN GTB NAUSEA AND/OR VOMITING Last administered on 09/04/16 07:38; Admin Dose 4 MG; Start 08/25/16 at 13:30 Pantoprazole (Protonix Tab) 40 mg DAILY PO Last administered on 09/05/16 09:26 ; Admin Dose 40 MG; Start 08/26/16 at 09:00 Acetaminophen (Tylenol Liquid) 650 mg Q6 PRN NGT FEVER GREATER THAN 100.6; Start 08/25/16 at 13:30 Docusate Sodium (Colace Liquid Cup) 100 mg BID GTB Last administered on 09:24; Admin Dose 100 MG; Start 08/25/16 at 21:00 Miscellaneous Information This patient suarez... PRN PRN XX WOUND CARE; Start 08/27 at 03:00 Vancomycin HCl/ Sodium Chloride (Vancocin/NS) 150 ml @ 75 mls/hr Q24H IVPB Last administered on 09/05/16 05:56; Admin Dose 75 MLS/HR; Start 08/31/16 at 06: 00 Collagenase (Santyl) 1 applic DAILY TOP Last administered on 09/05/16 09:23; Admin Dose 1 APPLIC; Start 08/30/16 at 21:00 IV Flush 10 ml 10 ml PRN PRN IV IV PROTOCOL; Start 08/30/16 at 14:00 Meropenem (Merrem 1 Gm/100 ml (Pmx)) 100 ml @ 200 mls/hr Q12 IVPB Last administered on 09/05/16 09:44; Admin Dose 200 MLS/HR; Start 09/01/16 at 09:00 Morphine Sulfate (morphine) 1 mg Q4H PRN IV PAIN LEVEL 6-10 Last administered on 09/03/16 16:31; Admin Dose 1 MG; Start 09/01/16 at 13:30 Acetaminophen/ Hydrocodone Bitart ([place] (5/325)) 1 tab Q6H PRN GTB PAIN LEVEL 6-10 Last administered on 09/04/16 07:38; Admin Dose 1 TAB; Start 09/03/16 at 13: 12 Eye Lubricant (Artificial Tears Oph) 2 drop QID BOTH EYES Last administered on 09/05/16 09:24; Admin Dose 2 DROP; Start 09/03/16 at 14:30 Assessment/Plan Chief Complaint/Hosp Course Assessment 1. Resolved sepsis 2. Vent dependent respiratory failure, with acute on chronic hypoxemic respiratory failure 3. Healthcare associated pneumonia, now improved 4. History of Parkinson's disease 5. Anemia likely of chronic disease 6. Dysphagia with G-tube Plan 1. Continue mechanical ventilation, stable on volume control ventilation 2. Continue PICC line care 3. Consider stopping antibiotics 4. Monitor H&H 5. Hold off sedation 6. Continue tube feeding as tolerated 7. DVT and GI prophylaxis Disposition Discharge planning, discussed with SUPERVISOR BINDERY for primary team Problems: INDER LONDON MD, [facility] September 05, 2016 11:11
--- NOTE | 2016-09-05 13:40 | CONS ---
Date/Time of Note Date/Time of Note DATE: 09/05/16 TIME: 13:39 Assessment/Plan Assessment/Plan Chief Complaint/Hosp Course SUBJECTIVE: No events overnight. No fevers. The patient is lying comfortably in bed. ANTIMICROBIALS: 1. Vancomycin. 2. Merrem. INDWELLINGS: Trach, PEG, Hobbs. PHYSICAL EXAMINATION: GENERAL: Well-developed, fragile, elderly man who is in no distress. HEENT: Head atraumatic, normocephalic. Sclerae anicteric. Buccal mucosa dry. NECK: Supple. Tracheostomy present. CHEST: Rise symmetrical. Breath sounds with scattered rhonchi. HEART: S1, S2. ABDOMEN: Soft, bowel tones present. EXTREMITIES: Without cyanosis. ASSESSMENT: 1. Status post sepsis. 2. Pseudomonas aeruginosa urinary tract infection. 3. Healthcare-associated pneumonia. 4. Dysphagia. 5. Anemia. PLAN: The patient remains stable, will dc abx [facility] staff Problems: Consultation Date/Type/Reason Admit Date/Time Aug 26, 2016 at 06:53 Initial Consult Date 08/25/16 Type of Consultation: ID Exam/Review of Systems Vital Signs Vitals Vital Signs Date Time Temp Pulse Resp B/P Pulse Ox O2 Delivery O2 Flow Rate FiO2 09/05/16 12:20 52 09/05/16 12:02 98.2 18 168/73 99 09/05/16 11:11 30 09/01/16 16:00 Mechanical Ventilator Intake and Output 09/04/16 09/04/16 09/05/16 15:00 23:00 07:00 Intake Total 1020 ml 920 ml Output Total 450 ml 600 ml Balance 570 ml 320 ml Results Result Diagram: 09/05/16 0545 09/05/16 0545 Results 24 hrs Laboratory Tests Test 09/05/16 05:45 White Blood Count 6.2 # Red Blood Count 2.77 L Hemoglobin 8.4 L Hematocrit 26.2 L Mean Corpuscular Volume 94.6 Mean Corpuscular Hemoglobin 30.3 Mean Corpuscular Hemoglobin Concent 32.1 Red Cell Distribution Width 15.2 H Platelet Count 327 Mean Platelet Volume 10.9 H Neutrophils % 48.1 Lymphocytes % 32.1 Monocytes % 12.3 H Eosinophils % 6.7 Basophils % 0.5 Nucleated Red Blood Cells % 0.0 Neutrophils # 3.0 Lymphocytes # 2.0 Monocytes # 0.8 Eosinophils # 0.4 Basophils # 0.0 Nucleated Red Blood Cells # 0.0 Sodium Level 136 Potassium Level 4.4 Chloride Level 103 Carbon Dioxide Level 29 Anion Gap 8 Blood Urea Nitrogen 19 Creatinine 0.52 L Glucose Level 127 Calcium Level 8.4 Medications Medications Current Medications Benazepril HCl (Lotensin) 40 mg DAILY GTB Last administered on 09/05/16 09:26; Admin Dose 40 MG; Start 08/26/16 at 09:00 Carbidopa/Levodopa (Sinemet (/ )) 0.5 tab BID GTB Last administered on 09/05 09:26; Admin Dose 0.5 TAB; Start 08/25/16 at 21:00 Clonidine (Catapres) 0.1 mg Q6 PRN GTB SBP>160 Last administered on 09/05/16 04 :16; Admin Dose 0.1 MG; Start 08/25/16 at 13:30 Ferrous Sulfate (Feosol Liquid Cup) 330 mg BID GTB Last administered on 09:24; Admin Dose 330 MG; Start 08/25/16 at 21:00 Finasteride (Proscar) 5 mg DAILY GTB Last administered on 09/05/16 09:26; Admin Dose 5 MG; Start 08/26/16 at 09:00 Gabapentin (Neurontin) 300 mg BID GTB Last administered on 09/05/16 09:26; Admin Dose 300 MG; Start 08/25/16 at 21:00 Albuterol/ Ipratropium (Duoneb) 3 ml Q2HWA PRN INH WHEEZING AND SOB; Start at 13:30 Lorazepam (Ativan) 0.5 mg Q6 PRN GTB ANXIETY Last administered on 09/04/16 07: 38; Admin Dose 0.5 MG; Start 08/25/16 at 13:30 Magnesium Oxide (Mag-Ox 400) 400 mg QHS GTB Last administered on 09/04/16 21:43 ; Admin Dose 400 MG; Start 08/25/16 at 21:00 Multivitamins Therapeutic (Theragran) 1 tab DAILY GTB Last administered on 09:26; Admin Dose 1 TAB; Start 08/26/16 at 09:00 Ondansetron HCl (Zofran Tab) 4 mg Q6H PRN GTB NAUSEA AND/OR VOMITING Last administered on 09/04/16 07:38; Admin Dose 4 MG; Start 08/25/16 at 13:30 Pantoprazole (Protonix Tab) 40 mg DAILY PO Last administered on 09/05/16 09:26 ; Admin Dose 40 MG; Start 08/26/16 at 09:00 Acetaminophen (Tylenol Liquid) 650 mg Q6 PRN NGT FEVER GREATER THAN 100.6; Start 08/25/16 at 13:30 Docusate Sodium (Colace Liquid Cup) 100 mg BID GTB Last administered on 09:24; Admin Dose 100 MG; Start 08/25/16 at 21:00 Miscellaneous Information This patient suarez... PRN PRN XX WOUND CARE; Start 08/27 at 03:00 Vancomycin HCl/ Sodium Chloride (Vancocin/NS) 150 ml @ 75 mls/hr Q24H IVPB Last administered on 09/05/16 05:56; Admin Dose 75 MLS/HR; Start 08/31/16 at 06: 00 Collagenase (Santyl) 1 applic DAILY TOP Last administered on 09/05/16 09:23; Admin Dose 1 APPLIC; Start 08/30/16 at 21:00 IV Flush 10 ml 10 ml PRN PRN IV IV PROTOCOL; Start 08/30/16 at 14:00 Meropenem (Merrem 1 Gm/100 ml (Pmx)) 100 ml @ 200 mls/hr Q12 IVPB Last administered on 09/05/16 09:44; Admin Dose 200 MLS/HR; Start 09/01/16 at 09:00 Morphine Sulfate (morphine) 1 mg Q4H PRN IV PAIN LEVEL 6-10 Last administered on 09/03/16 16:31; Admin Dose 1 MG; Start 09/01/16 at 13:30 Acetaminophen/ Hydrocodone Bitart ([place] (5/325)) 1 tab Q6H PRN GTB PAIN LEVEL 6-10 Last administered on 09/04/16 07:38; Admin Dose 1 TAB; Start 09/03/16 at 13: 12 Eye Lubricant (Artificial Tears Oph) 2 drop QID BOTH EYES Last administered on 09/05/16 12:15; Admin Dose 2 DROP; Start 09/03/16 at 14:30 Amlodipine Besylate (Norvasc) 5 mg DAILY PO ; Start 09/06/16 at 09:00 MARI GOODE NP September 05, 2016 13:40
--- NOTE | 2016-09-05 15:08 | CONS ---
DATE OF ADMISSION: 08/26/2016 DATE OF CONSULTATION: 09/05/2016 REASON FOR CONSULTATION: Bradycardia. REQUESTING PHYSICIAN: Dr. Cynthia Manriquez HISTORY OF PRESENT ILLNESS: Mr. Box is an 81-year-old male with a history of Parkinson's, seizur e disorder, hypertension, congestive heart failure, BPH, gastroesophageal reflux disease and sacral decubitus ulcers, chronic respiratory failure status post tracheostomy, who was initially admitted w ith fevers from his chronic care facility on 08/26/2016. Since this time, the patient has been foll owed by the pulmonary and ID services and has been receiving antibiotic treatment for pneumonia and UTI. On the 7th overnight the patient was noted to have significant bradycardia documented at 38 ___ _ telemetry episodes of sinus radha to the 40s. In this setting the patient has had a stable to genny vated systolic blood pressures. Given these findings, a cardiology consult was requested. The chrissy ent is not on any ninfa agents at this time. 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 MEDICATIONS CURRENT IN HOSPITAL: 1. Tylenol. 2. Morphine. 3. Meropenem. 4. Vancomycin. 5. Benazepril 40 mg daily. 6. Proscar 5 mg daily. 7. Multivitamins. 8. Protonix. 9. Vancomycin. 10. Carbidopa/levodopa. 11. Ferrous sulfate 300 mg b.i.d. 12. Gabapentin 300 mg b.i.d. 13. Mag oxide 400 mg at bedtime. 14. Colace 100 mg b.i.d. 15. Clonidine 0.1 q.6h. 16. Albuterol Atrovent DuoNebs. 17. Ativan p.r.n. 18. Zofran p.r.n. 19. Tylenol p.r.n. ALLERGIES: PENICILLIN AND EGG. SOCIAL HISTORY: No tobacco, ETOH or illicit drug use currently. FAMILY HISTORY: No history of sudden cardiac or early CAD. REVIEW OF SYSTEMS: As above in HPI. CONSTITUTIONAL: No current fevers. PULMONARY: Chronic respiratory failure status post tracheostomy. GASTROINTESTINAL: Dysphagia status post G-tube. GENITOURINARY: No hematuria. MUSCULOSKELETAL: Myelopathy. NEUROLOGIC: Quadriparesis. PHYSICAL EXAMINATION: VITAL SIGNS: Temperature 98.2, pulse most recently in the 40s to 50s, sinus radha, blood pressure 1 68/73, saturating 99%, FIO2 of 30%. GENERAL: The patient is awake but appears confused. NECK: Tracheostomy in place. CHEST: Upper airway sounds are rhonchorous sounds. HEART: Bradycardic, regular rhythm, normal S1, S2, I/ systolic murmur. ABDOMEN: Positive G-tube. Soft. EXTREMITIES: No pitting edema, 1+ pulses bilaterally, posterior tibial. LABORATORY DATA: As above in HPI, with most recent from today, sodium 136, potassium 4.4, creatinin e 0.52, BUN 19. TSH of 4.13. White blood cell count 6.2, hemoglobin 9.4, platelet count 327, ABG r evealing a pH of 7.42, PaO2 of 124, pCO2 of 47. UA positive. IMAGING STUDIES: Chest x-ray from the 3rd revealing mild ____ interstitial markings. May reflect mi ld underlying ____ edema or chronic lung changes. Right basilar ____ was passed and may reflect ____ edema or atelectasis. Venous ultrasound from the third no evidence of DVT involving either lower e xtremity. ECG on the revealed normal sinus rhythm at a rate of 77, normal axis, normal intervals with non specific ST ____ diffusely. IMPRESSION: 1. Bradycardia consistent with sinus bradycardia with having significant episodes down to the high 30s. 2. Hypertension. 3. Congestive heart failure with preserved left ventricular ejection fraction by echo of this admit . 4. Respiratory failure, chronic, status post tracheostomy. 5. Urinary tract infection. 6. Pneumonia. 7. Dysphagia status post G-tube. 8. Anemia 9. Parkinson's disease. 10. Myelopathy with decubitus ulcers. RECOMMENDATIONS: 1. At this time, would maintain the patient on telemetry monitoring, follow rhythm and rate control closely. 2. Continue the patient's current benazepril, control blood pressure and will add Norvasc for possi ble improvement of blood pressure and reflex tachycardia. 3. Follow the patient's volume status closely. 4. Continue the patient's antibiotics and follow up all culture data. 5. No ninfa agents at this time. Thank you for allowing me to take part in the care of this patient. I will continue to follow along very closely with you. Further recommendations will be made as the patient progresses through his inpatient hospital clinical course. Dictated By: REMBERTO SNELL/CHITRA Conf#: [id number] DID#: [id number] CC: CYNTHIA MANRIQUEZ MD;*EndCC*
--- NOTE | 2016-09-05 18:58 | PN ---
Date/Time of Note Date/Time of Note DATE: 09/05/16 TIME: 18:56 Assessment/Plan VTE Prophylaxis VTE Prophylaxis Intervention: SCD's Lines/Catheters IV Catheter Type (from Nrs): PICC Line Central line still needed: Yes Urinary Cath still in place: Yes Reason Cath still needed: urinary retention Assessment/Plan Chief Complaint/Hosp Course Assessment/Plan - Bradycardia, Dr. Chadwick is following and cardiology consultation - Sepsis secondary to pneumonia and UTI, continue antibiotics per ID, Dr. Shine is following infection disease consultation. - HCAP -Pseudomonas UTI. -Ventilator dependent respiratory failure with tracheostomy, with acute on chronic hypoxemic respiratory failure. is following in pulmonology consultation, continue bronchodilators and ventilatory support. -Prerenal azotemia, resolved. - Cervical myelopathy, status post cervical spine and upper thoracic spine surgery. 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 -Dysphagia with PEG. -HTN -CHF -GOUT -Cervical Stenosis -BPH -Sacral and heel pressure ulcers, continue current wound care, offloading. - GERD Further recommendations based on clinical course. Plan of care discussed with Dr. Manriquez. Problems: Subjective 24 Hr Interval Summary Free Text/Dictation Patient's continues to be bradycardic with heart rate going to 40s, stable blood pressure, remains afebrile. Exam/Review of Systems Vital Signs Vitals Vital Signs Date Time Temp Pulse Resp B/P Pulse Ox O2 Delivery O2 Flow Rate FiO2 09/05/16 17:16 55 14 99 30 09/05/16 15:41 98.2 158/53 09/01/16 16:00 Mechanical Ventilator Intake and Output 09/04/16 09/04/16 09/05/16 15:00 23:00 07:00 Intake Total 1020 ml 920 ml Output Total 450 ml 600 ml Balance 570 ml 320 ml Exam Constitutional: alert, frail Psych: confusion Head: atraumatic, normocephalic Eyes: nl conjunctiva ENMT: nl external ears & nose Neck: other (Tracheostomy) Respiratory: crackles/rales, diminished breath sounds, other (On vent support) Cardiovascular: nl pulses, regular rate and rhythm Gastrointestinal: non-tender, other (G-tube) Musculoskeletal: nl extremities to inspection Extremities: normal pulses Neurological: alert , other (Quadriparesis) Results Result Diagram: 09/05/16 0545 09/05/16 0545 Results 24 hrs Laboratory Tests Test 09/05/16 05:45 White Blood Count 6.2 # Red Blood Count 2.77 L Hemoglobin 8.4 L Hematocrit 26.2 L Mean Corpuscular Volume 94.6 Mean Corpuscular Hemoglobin 30.3 Mean Corpuscular Hemoglobin Concent 32.1 Red Cell Distribution Width 15.2 H Platelet Count 327 Mean Platelet Volume 10.9 H Neutrophils % 48.1 Lymphocytes % 32.1 Monocytes % 12.3 H Eosinophils % 6.7 Basophils % 0.5 Nucleated Red Blood Cells % 0.0 Neutrophils # 3.0 Lymphocytes # 2.0 Monocytes # 0.8 Eosinophils # 0.4 Basophils # 0.0 Nucleated Red Blood Cells # 0.0 Sodium Level 136 Potassium Level 4.4 Chloride Level 103 Carbon Dioxide Level 29 Anion Gap 8 Blood Urea Nitrogen 19 Creatinine 0.52 L Glucose Level 127 Calcium Level 8.4 Medications Medications Current Medications Benazepril HCl (Lotensin) 40 mg DAILY GTB Last administered on 09/05/16 09:26; Admin Dose 40 MG; Start 08/26/16 at 09:00 Carbidopa/Levodopa (Sinemet (25/ 100)) 0.5 tab BID GTB Last administered on 09/05 09:26; Admin Dose 0.5 TAB; Start 08/25/16 at 21:00 Clonidine (Catapres) 0.1 mg Q6 PRN GTB SBP>160 Last administered on 09/05/16 04 :16; Admin Dose 0.1 MG; Start 08/25/16 at 13:30 Ferrous Sulfate (Feosol Liquid Cup) 330 mg BID GTB Last administered on 09:24; Admin Dose 330 MG; Start 08/25/16 at 21:00 Finasteride (Proscar) 5 mg DAILY GTB Last administered on 09/05/16 09:26; Admin Dose 5 MG; Start 08/26/16 at 09:00 Gabapentin (Neurontin) 300 mg BID GTB Last administered on 09/05/16 09:26; Admin Dose 300 MG; Start 08/25/16 at 21:00 Albuterol/ Ipratropium (Duoneb) 3 ml Q2HWA PRN INH WHEEZING AND SOB; Start at 13:30 Lorazepam (Ativan) 0.5 mg Q6 PRN GTB ANXIETY Last administered on 09/04/16 07: 38; Admin Dose 0.5 MG; Start 08/25/16 at 13:30 Magnesium Oxide (Mag-Ox 400) 400 mg QHS GTB Last administered on 09/04/16 21:43 ; Admin Dose 400 MG; Start 08/25/16 at 21:00 Multivitamins Therapeutic (Theragran) 1 tab DAILY GTB Last administered on 09:26; Admin Dose 1 TAB; Start 08/26/16 at 09:00 Ondansetron HCl (Zofran Tab) 4 mg Q6H PRN GTB NAUSEA AND/OR VOMITING Last administered on 09/04/16 07:38; Admin Dose 4 MG; Start 08/25/16 at 13:30 Pantoprazole (Protonix Tab) 40 mg DAILY PO Last administered on 09/05/16 09:26 ; Admin Dose 40 MG; Start 08/26/16 at 09:00 Acetaminophen (Tylenol Liquid) 650 mg Q6 PRN NGT FEVER GREATER THAN 100.6; Start 08/25/16 at 13:30 Docusate Sodium (Colace Liquid Cup) 100 mg BID GTB Last administered on 09:24; Admin Dose 100 MG; Start 08/25/16 at 21:00 Miscellaneous Information (Pending Santyl Order For Wound Care) This patient suarez... PRN PRN XX WOUND CARE; Start 08/27/16 at 03:00 Collagenase (Santyl) 1 applic DAILY TOP Last administered on 09/05/16 09:23; Admin Dose 1 APPLIC; Start 08/30/16 at 21:00 IV Flush (NS 10 ml) 10 ml PRN PRN IV IV PROTOCOL; Start 08/30/16 at 14:00 Morphine Sulfate (morphine) 1 mg Q4H PRN IV PAIN LEVEL 6-10 Last administered on 09/03/16 16:31; Admin Dose 1 MG; Start 09/01/16 at 13:30 Acetaminophen/ Hydrocodone Bitart ([place] (5/325)) 1 tab Q6H PRN GTB PAIN LEVEL 6-10 Last administered on 09/04/16 07:38; Admin Dose 1 TAB; Start 09/03/16 at 13: 12 Eye Lubricant (Artificial Tears Oph) 2 drop QID BOTH EYES Last administered on 09/05/16t 16:32; Admin Dose 2 DROP; Start 09/03/16 at 14:30 Amlodipine Besylate (Norvasc) 5 mg DAILY PO ; Start 09/06/16 at 09:00 MARCO DOE September 05, 2016 18:58
[2016-09-05] MEDS: MAGNESIUM OXIDE 400 MG TAB GTB SCH (20:02)
--- NOTE | 2016-09-05 20:58 | RADRPT ---
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 Physician: GEOVANNY HARRIS Quality: Adequate Procedures: Transthoracic echocardiogram with complete 2D, M-Mode, and doppler examination. Indications: Bradycardia. 2D/M Mode Doppler Measurement Value Normal Ranges Measurement Value Normal Ranges LVIDd 2D 4.4 3.5 - 5.6 cm AV Peak Humberto 1.1 m/sec LVIDs 2D 3.0 2.1 - 4.1 cm AV Peak PG 5.1 mmHg LVPWd 2D 1.3 0.6 - 1.1 cm LVOT Peak Humberto 1.0 m/sec IVSd 2D 1.3 0.6 - 1.1 cm LVOT Peak PG 4.2 mmHg AoR Diam 2D 2.7 2.0 - 3.7 cm MV E Peak Humberto 0.8 m/sec EDV 2D 87.9 cm3 MV A Peak Humberto 0.8 m/sec ESV 2D 28.1 cm3 MV E/A 0.9 LA Dimen 2D 3.4 2.3 - 4.0 cm MV Decel Time 213 msec MV Decel S[place]y 4 MV E/A 0.9 TR Peak Humberto 2.8 m/sec TR Peak PG 32.4 mmHg Findings Left Ventricle: Normal left ventricular systolic function. Normal left ventricular cavity size. Mild concentric left ventricular hypertrophy. Ejection fraction is visually estimated at 60 %. Abnormal Diastolic Function. Right Ventricle: Normal right ventricular size. Normal right ventricular systolic function. Left Atrium: The left atrium is normal in size. LA Dimension3.40 cm. Right Atrium: Right atrium at upper limits of normal. RA Pressure=15. Mitral Valve: Mitral valve leaflets appear mildly thickened. Mild mitral annular calcification. Mild mitral valve regurgitation. Aortic Valve: Aortic valve not well visualized. Trace aortic valve regurgitation. Tricuspid Valve: Tricuspid valve not well visualized. Estimated peak PA systolic pressure 48 mmHg. There is mild tricuspid regurgitation. Pulmonic Valve: There is trace pulmonic regurgitation. Pericardium: Normal pericardium with no significant pericardial effusion. Aorta: Normal aortic root. IVC: Inferior vena cava without respiratory collapse, however, patient on ventilator. Conclusions 1.Normal left ventricular systolic function. Normal left ventricular cavity size. Mild concentric left ventricular hypertrophy. Ejection fraction is visually estimated at 60 %. Abnormal Diastolic Function. 2.Mitral valve leaflets appear mildly thickened. Mild mitral annular calcification. Mild mitral valve regurgitation. 3.Aortic valve not well visualized. Trace aortic valve regurgitation. 4.Tricuspid valve not well visualized. Estimated peak PA systolic pressure 48 mmHg. There is mild tricuspid regurgitation. 5.There is trace pulmonic regurgitation. Electronically Signed By: [place] Chadwick 05-Sep-2016 20:57:42 -0700 Patient Name: SIMEON LUIS Study Date: 04-Sep-2016 [id number]
[2016-09-05] MEDS: LORAZEPAM 0.5 MG TAB GTB PRN (23:26)
[2016-09-06] VITALS (23 sets, daily range): BP systolic 145–172; BP diastolic 57–79; PULSE 48–85; RESP 14–23
[2016-09-06] MEDS ORDERED: ALTEPLASE (CATHFLO) 2 MG INJ CATHETER PRN (07:00)
[2016-09-06 08:00] LABS: CHOL/HDL RATIO 2.5 RATIO
--- NOTE | 2016-09-06 09:22 | CONS ---
Date/Time of Note Date/Time of Note DATE: 09/06/16 TIME: 09:20 Assessment/Plan Assessment/Plan Additional Assessment/Plan 1. Bradycardia consistent with sinus bradycardia with having significant episodes down to the high 30s.- in sinsu now, rate controlle d- in 60s - will monitor for now 2. Hypertension- labole, adjust Rx as needed 3. Congestive heart failure with preserved left ventricular ejection fraction by echo of this admit- stable 4. Respiratory failure, chronic, status post tracheostomy. 5. Urinary tract infection. 6. Pneumonia- on anti-bx, con't med rx 7. Dysphagia status post G-tube. 8. Anemia 9. Parkinson's disease. 10. Myelopathy with decubitus ulcers. Consultation Date/Type/Reason Admit Date/Time Aug 26, 2016 at 06:53 Initial Consult Date 08/25/16 Type of Consultation: ID 24 HR Interval Summary Free Text/Dictation NO acute change - HR in high 40s - BP stable - will monitor clonically for now ROS: No fever, no chills, no nausea, no vomiting, no diarrhea/constipation No recent weight changes No chest pain, no PND, no orthopnea No dizziness, blurred vision No thirst, no heat or cold intolerance (chronic trach) Exam/Review of Systems Vital Signs Vitals Vital Signs Date Time Temp Pulse Resp B/P Pulse Ox O2 Delivery O2 Flow Rate FiO2 09/06/16 07:58 51 14 97 30 09/06/16 07:36 97.6 165/57 Intake and Output 09/05/16 09/05/16 09/06/16 15:00 23:00 07:00 Intake Total 100 ml 990 ml 900 ml Output Total 1000 ml 1500 ml Balance 100 ml -10 ml -600 ml Exam General: WN/WD/NAD, AOx comfortable HEENT: Unicetric/atraumatic/EOMI (does not follow commands) NECK: no thyromegaly, trach Lymph: no lymphadenopathy HEART: regular with no S3, II/ systolic murmur at apex LUNGS: Coarse sounds ABD: soft, NT, ND, +BS : Intact Neuro: non focal SKIN: chronic changes EXT: trace edema Results Result Diagram: 09/05/16 0545 09/05/16 0545 Results 24 hrs Laboratory Tests Test 09/05/16 18:50 09/06/16 00:35 09/06/16 06:49 Troponin I < 0.012 < 0.012 < 0.012 Triglycerides Level 83 Cholesterol Level 58 L LDL Cholesterol, Calculated 18 HDL Cholesterol 23 L Cholesterol/HDL Ratio 2.5 Medications Medications Current Medications Benazepril HCl (Lotensin) 40 mg DAILY GTB Last administered on 09/05/16 09:26; Admin Dose 40 MG; Start 08/26/16 at 09:00 Carbidopa/Levodopa (Sinemet (25/ 100)) 0.5 tab BID GTB Last administered on 09/05 20:02; Admin Dose 0.5 TAB; Start 08/25/16 at 21:00 Clonidine (Catapres) 0.1 mg Q6 PRN GTB SBP>160 Last administered on 09/05/16 04 :16; Admin Dose 0.1 MG; Start 08/25/16 at 13:30 Ferrous Sulfate (Feosol Liquid Cup) 330 mg BID GTB Last administered on 20:02; Admin Dose 330 MG; Start 08/25/16 at 21:00 Finasteride (Proscar) 5 mg DAILY GTB Last administered on 09/05/16 09:26; Admin Dose 5 MG; Start 08/26/16 at 09:00 Gabapentin (Neurontin) 300 mg BID GTB Last administered on 09/05/16 20:02; Admin Dose 300 MG; Start 08/25/16 at 21:00 Albuterol/ Ipratropium (Duoneb) 3 ml Q2HWA PRN INH WHEEZING AND SOB; Start at 13:30 Lorazepam (Ativan) 0.5 mg Q6 PRN GTB ANXIETY Last administered on 09/05/16 23: 26; Admin Dose 0.5 MG; Start 08/25/16 at 13:30 Magnesium Oxide (Mag-Ox 400) 400 mg QHS GTB Last administered on 09/05/16 20:02 ; Admin Dose 400 MG; Start 08/25/16 at 21:00 Multivitamins Therapeutic (Theragran) 1 tab DAILY GTB Last administered on 09:26; Admin Dose 1 TAB; Start 08/26/16 at 09:00 Ondansetron HCl (Zofran Tab) 4 mg Q6H PRN GTB NAUSEA AND/OR VOMITING Last administered on 09/04/16 07:38; Admin Dose 4 MG; Start 08/25/16 at 13:30 Pantoprazole (Protonix Tab) 40 mg DAILY PO Last administered on 09/05/16 09:26 ; Admin Dose 40 MG; Start 08/26/16 at 09:00 Acetaminophen (Tylenol Liquid) 650 mg Q6 PRN NGT FEVER GREATER THAN 100.6; Start 08/25/16 at 13:30 Docusate Sodium (Colace Liquid Cup) 100 mg BID GTB Last administered on 20:02; Admin Dose 100 MG; Start 08/25/16 at 21:00 Miscellaneous Information (Pending Santyl Order For Wound Care) This patient suarez... PRN PRN XX WOUND CARE; Start 08/27/16 at 03:00 Collagenase (Santyl) 1 applic DAILY TOP Last administered on 09/05/16 09:23; Admin Dose 1 APPLIC; Start 08/30/16 at 21:00 IV Flush (NS 10 ml) 10 ml PRN PRN IV IV PROTOCOL; Start 08/30/16 at 14:00 Morphine Sulfate (morphine) 1 mg Q4H PRN IV PAIN LEVEL 6-10 Last administered on 09/03/16 16:31; Admin Dose 1 MG; Start 09/01/16 at 13:30 Acetaminophen/ Hydrocodone Bitart ([place] (5/325)) 1 tab Q6H PRN GTB PAIN LEVEL 6-10 Last administered on 09/04/16 07:38; Admin Dose 1 TAB; Start 09/03/16 at 13: 12 Eye Lubricant (Artificial Tears Oph) 2 drop QID BOTH EYES Last administered on 09/05/16 20:02; Admin Dose 2 DROP; Start 09/03/16 at 14:30 Amlodipine Besylate (Norvasc) 5 mg DAILY PO ; Start 09/06/16 at 09:00 RIVER FALCON MD September 06, 2016 09:22
[2016-09-06] MEDS: PANTOPRAZOLE (EC) 40 MG TAB PO SCH (09:26)
[2016-09-06] MEDS: GABAPENTIN 300 MG CAP GTB SCH ×2 (09:26→21:01)
[2016-09-06] MEDS: BENAZEPRIL 40 MG TAB GTB SCH (09:26)
[2016-09-06] MEDS: FERROUS SULFATE 60 MG/ML 5ML CUP GTB SCH ×2 (09:26→21:01)
[2016-09-06] MEDS: DOCUSATE SODIUM 10 MG/ML (10ML CUP) GTB SCH ×2 (09:26→21:01)
[2016-09-06] MEDS: CARBIDOPA/LEVODOPA (25/100) TAB GTB SCH ×2 (09:26→21:01)
[2016-09-06] MEDS: AMLODIPINE 5 MG TAB PO SCH (09:27)
[2016-09-06] MEDS: FINASTERIDE 5 MG TAB GTB SCH (09:27)
[2016-09-06] MEDS: COLLAGENASE 30 GM TUBE TOP SCH (09:27)
[2016-09-06] MEDS: ARTIFICIAL TEARS 15 ML OPH BOTH EYES SCH ×4 (09:27→21:01)
[2016-09-06] MEDS: MULTIVITAMINS THERAPEUTIC TAB GTB SCH (09:27)
--- NOTE | 2016-09-06 11:53 | CONS ---
Date/Time of Note Date/Time of Note DATE: 09/06/16 TIME: 11:51 Consult Date/Type/Reason Admit Date/Time Aug 26, 2016 at 06:53 Initial Consult Date 08/25/16 Type of Consultation: pulmonary Subjective No significant changes Objective Vital Signs Date Time Temp Pulse Resp B/P Pulse Ox O2 Delivery O2 Flow Rate FiO2 09/06/16 11:45 97.9 65 20 166/74 99 09/06/16 09:30 30 Intake and Output 09/05/16 09/05/16 09/06/16 14:59 22:59 06:59 Intake Total 100 ml 990 ml 900 ml Output Total 1000 ml 1500 ml Balance 100 ml -10 ml -600 ml Exam PHYSICAL EXAMINATION GENERAL: Elderly gentleman on mechanical ventilation comfortable at rest VITAL SIGNS: see below. HEENT: Pupils equal, round, and reactive to light. Tracheostomy site clean and intact. CARDIAC: S1, S2, 2/6 systolic ejection murmur CHEST: Diminished air entry bilaterally. ABDOMEN: Mildly distended. Bowel Sounds present no guarding or rebound EXTREMITIES: No cyanosis, clubbing edema +1 NEUROLOGIC: Generalized weakness Results/Medications Result Diagram: 09/05/16 0545 09/05/16 0545 Results 24 hrs Laboratory Tests Test 09/05/16 18:50 09/06/16 00:35 09/06/16 06:49 Troponin I < 0.012 < 0.012 < 0.012 Triglycerides Level 83 Cholesterol Level 58 L LDL Cholesterol, Calculated 18 HDL Cholesterol 23 L Cholesterol/HDL Ratio 2.5 Medications Current Medications Benazepril HCl (Lotensin) 40 mg DAILY GTB Last administered on 09/06/16 09:26; Admin Dose 40 MG; Start 08/26/16 at 09:00 Carbidopa/Levodopa (Sinemet (25/ 100)) 0.5 tab BID GTB Last administered on 09/06 09:26; Admin Dose 0.5 TAB; Start 08/25/16 at 21:00 Clonidine (Catapres) 0.1 mg Q6 PRN GTB SBP>160 Last administered on 09/05/16 04 :16; Admin Dose 0.1 MG; Start 08/25/16 at 13:30 Ferrous Sulfate (Feosol Liquid Cup) 330 mg BID GTB Last administered on 09:26; Admin Dose 330 MG; Start 08/25/16 at 21:00 Finasteride (Proscar) 5 mg DAILY GTB Last administered on 09/06/16 09:27; Admin Dose 5 MG; Start 08/26/16 at 09:00 Gabapentin (Neurontin) 300 mg BID GTB Last administered on 09/06/16 09:26; Admin Dose 300 MG; Start 08/25/16 at 21:00 Albuterol/ Ipratropium (Duoneb) 3 ml Q2HWA PRN INH WHEEZING AND SOB; Start at 13:30 Lorazepam (Ativan) 0.5 mg Q6 PRN GTB ANXIETY Last administered on 09/05/16 23: 26; Admin Dose 0.5 MG; Start 08/25/16 at 13:30 Magnesium Oxide (Mag-Ox 400) 400 mg QHS GTB Last administered on 09/05/16 20:02 ; Admin Dose 400 MG; Start 08/25/16 at 21:00 Multivitamins Therapeutic (Theragran) 1 tab DAILY GTB Last administered on 09:27; Admin Dose 1 TAB; Start 08/26/16 at 09:00 Ondansetron HCl (Zofran Tab) 4 mg Q6H PRN GTB NAUSEA AND/OR VOMITING Last administered on 09/04/16 07:38; Admin Dose 4 MG; Start 08/25/16 at 13:30 Pantoprazole (Protonix Tab) 40 mg DAILY PO Last administered on 09/06/16 09:26 ; Admin Dose 40 MG; Start 08/26/16 at 09:00 Acetaminophen (Tylenol Liquid) 650 mg Q6 PRN NGT FEVER GREATER THAN 100.6; Start 08/25/16 at 13:30 Docusate Sodium (Colace Liquid Cup) 100 mg BID GTB Last administered on 09:26; Admin Dose 100 MG; Start 08/25/16 at 21:00 Miscellaneous Information (Pending Santyl Order For Wound Care) This patient suarez... PRN PRN XX WOUND CARE; Start 08/27/16 at 03:00 Collagenase (Santyl) 1 applic DAILY TOP Last administered on 09/06/16 09:27; Admin Dose 1 APPLIC; Start 5/2/17 at 21:00 IV Flush (NS 10 ml) 10 ml PRN PRN IV IV PROTOCOL; Start 08/30/16 at 14:00 Morphine Sulfate (morphine) 1 mg Q4H PRN IV PAIN LEVEL 6-10 Last administered on 09/03/16 16:31; Admin Dose 1 MG; Start 09/01/16 at 13:30 Acetaminophen/ Hydrocodone Bitart ([place] (5/325)) 1 tab Q6H PRN GTB PAIN LEVEL 6-10 Last administered on 09/04/16 07:38; Admin Dose 1 TAB; Start 09/03/16 at 13: 12 Eye Lubricant (Artificial Tears Oph) 2 drop QID BOTH EYES Last administered on 09/06/16 09:27; Admin Dose 2 DROP; Start 09/03/16 at 14:30 Amlodipine Besylate (Norvasc) 5 mg DAILY PO Last administered on 09/06/16 09:27 ; Admin Dose 5 MG; Start 09/06/16 at 09:00 Assessment/Plan Chief Complaint/Hosp Course Assessment 1. Resolved sepsis 2. Vent dependent respiratory failure, with acute on chronic hypoxemic respiratory failure 3. Healthcare associated pneumonia, now improved 4. History of Parkinson's disease 5. Anemia likely of chronic disease 6. Dysphagia with G-tube 7. Baseline bradycardia patient remains asymptomatic Plan 1. Continue mechanical ventilation, stable on volume control ventilation 2. Continue PICC line care 3. Consider stopping antibiotics 4. Monitor H&H 5. Continue cardiac recommendations 6. Continue tube feeding as tolerated 7. DVT and GI prophylaxis Disposition Discharge planning, okay from pulmonary standpoint Problems: INDER LONDON MD, [facility] September 06, 2016 11:53
--- NOTE | 2016-09-06 14:09 | RADRPT ---
Vent Rate: 59 bpm RR Interval: 0 msec LA Interval: 170 msec QRS Duration: 92 msec QT Interval: 418 msec QTC Interval: 413 msec P-R-T [place]: 56 - 17 - 63 degrees Sinus bradycardia Nonspecific T wave abnormality Abnormal ECG Electronically Signed By: Diego Bowden [id number]
--- NOTE | 2016-09-06 14:20 | PN ---
Date/Time of Note Date/Time of Note DATE: 09/06/16 TIME: 14:19 Assessment/Plan VTE Prophylaxis VTE Prophylaxis Intervention: SCD's Lines/Catheters IV Catheter Type (from Nrs): PICC Line Central line still needed: Yes Urinary Cath still in place: Yes Reason Cath still needed: urinary retention Assessment/Plan Chief Complaint/Hosp Course Assessment/Plan - Bradycardia, Dr. Chadwick is following and cardiology consultation - Sepsis secondary to pneumonia and UTI, continue antibiotics per ID, Dr. Shine is following infection disease consultation. - HCAP -Pseudomonas UTI. -Ventilator dependent respiratory failure with tracheostomy, with acute on chronic hypoxemic respiratory failure. is following in pulmonology consultation, continue bronchodilators and ventilatory support. -Prerenal azotemia, resolved. - Cervical myelopathy, status post cervical spine and upper thoracic spine surgery. 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 -Dysphagia with PEG. -HTN -CHF -GOUT -Cervical Stenosis -BPH -Sacral and heel pressure ulcers, continue current wound care, offloading. - GERD Further recommendations based on clinical course. Plan of care discussed with Dr. Manriquez. Problems: Subjective 24 Hr Interval Summary Free Text/Dictation Heart rate is better today however still bradycardia with heart rate going into the 50s, with elevated blood pressure, continue to monitor on telemetry. Exam/Review of Systems Vital Signs Vitals Vital Signs Date Time Temp Pulse Resp B/P Pulse Ox O2 Delivery O2 Flow Rate FiO2 09/06/16 13:58 85 09/06/16 13:30 16 97 30 09/06/16 11:45 97.9 166/74 Intake and Output 09/05/16 09/05/16 09/06/16 15:00 23:00 07:00 Intake Total 100 ml 990 ml 900 ml Output Total 1000 ml 1500 ml Balance 100 ml -10 ml -600 ml Exam Constitutional: alert, frail Psych: confusion Head: atraumatic, normocephalic Eyes: nl conjunctiva ENMT: nl external ears & nose Neck: other (Tracheostomy) Respiratory: crackles/rales, diminished breath sounds, other (On vent support) Cardiovascular: nl pulses, regular rate and rhythm Gastrointestinal: non-tender, other (G-tube) Musculoskeletal: nl extremities to inspection Extremities: normal pulses Neurological: alert , other (Quadriparesis) Results Result Diagram: 09/05/16 0545 09/05/16 0545 Results 24 hrs Laboratory Tests Test 09/05/16 18:50 09/06/16 00:35 09/06/16 06:49 Troponin I < 0.012 < 0.012 < 0.012 Triglycerides Level 83 Cholesterol Level 58 L LDL Cholesterol, Calculated 18 HDL Cholesterol 23 L Cholesterol/HDL Ratio 2.5 Medications Medications Current Medications Benazepril HCl (Lotensin) 40 mg DAILY GTB Last administered on 09/06/16 09:26; Admin Dose 40 MG; Start 08/26/16 at 09:00 Carbidopa/Levodopa (Sinemet ()) 0.5 tab BID GTB Last administered on 09/06 09:26; Admin Dose 0.5 TAB; Start 08/25/16 at 21:00 Clonidine (Catapres) 0.1 mg Q6 PRN GTB SBP>160 Last administered on 09/05/16 04 :16; Admin Dose 0.1 MG; Start 08/25/16 at 13:30 Ferrous Sulfate (Feosol Liquid Cup) 330 mg BID GTB Last administered on 09:26; Admin Dose 330 MG; Start 08/25/16 at 21:00 Finasteride (Proscar) 5 mg DAILY GTB Last administered on 09/06/16 09:27; Admin Dose 5 MG; Start 08/26/16 at 09:00 Gabapentin (Neurontin) 300 mg BID GTB Last administered on 09/06/16 09:26; Admin Dose 300 MG; Start 08/25/16 at 21:00 Albuterol/ Ipratropium (Duoneb) 3 ml Q2HWA PRN INH WHEEZING AND SOB; Start at 13:30 Lorazepam (Ativan) 0.5 mg Q6 PRN GTB ANXIETY Last administered on 09/05/16 23: 26; Admin Dose 0.5 MG; Start 08/25/16 at 13:30 Magnesium Oxide (Mag-Ox 400) 400 mg QHS GTB Last administered on 09/05/16 20:02 ; Admin Dose 400 MG; Start 08/25/16 at 21:00 Multivitamins Therapeutic (Theragran) 1 tab DAILY GTB Last administered on 09:27; Admin Dose 1 TAB; Start 08/26/16 at 09:00 Ondansetron HCl (Zofran Tab) 4 mg Q6H PRN GTB NAUSEA AND/OR VOMITING Last administered on 09/04/16 07:38; Admin Dose 4 MG; Start 08/25/16 at 13:30 Pantoprazole (Protonix Tab) 40 mg DAILY PO Last administered on 09/06/16 09:26 ; Admin Dose 40 MG; Start 08/26/16 at 09:00 Acetaminophen (Tylenol Liquid) 650 mg Q6 PRN NGT FEVER GREATER THAN 100.6; Start 08/25/16 at 13:30 Docusate Sodium (Colace Liquid Cup) 100 mg BID GTB Last administered on 09:26; Admin Dose 100 MG; Start 08/25/16 at 21:00 Miscellaneous Information (Pending Santyl Order For Wound Care) This patient suarez... PRN PRN XX WOUND CARE; Start 08/27/16 at 03:00 Collagenase (Santyl) 1 applic DAILY TOP Last administered on 09/06/16 09:27; Admin Dose 1 APPLIC; Start 08/30/16 at 21:00 IV Flush (NS 10 ml) 10 ml PRN PRN IV IV PROTOCOL; Start 08/30/16 at 14:00 Morphine Sulfate (morphine) 1 mg Q4H PRN IV PAIN LEVEL 6-10 Last administered on 09/03/16 16:31; Admin Dose 1 MG; Start 09/01/16 at 13:30 Acetaminophen/ Hydrocodone Bitart ([place] (5/325)) 1 tab Q6H PRN GTB PAIN LEVEL 6-10 Last administered on 09/04/16 07:38; Admin Dose 1 TAB; Start 09/03/16 at 13: 12 Eye Lubricant (Artificial Tears Oph) 2 drop QID BOTH EYES Last administered on 09/06/16 13:04; Admin Dose 2 DROP; Start 09/03/16 at 14:30 Amlodipine Besylate (Norvasc) 5 mg DAILY PO Last administered on 09/06/16 09:27 ; Admin Dose 5 MG; Start 09/06/16 at 09:00 MARCO DOE September 06, 2016 14:20
--- NOTE | 2016-09-06 14:24 | CONS ---
Date/Time of Note Date/Time of Note DATE: 09/06/16 TIME: 14:23 Assessment/Plan Assessment/Plan Chief Complaint/Hosp Course SUBJECTIVE: No events overnight. No fevers. The patient is awake, nad INDWELLINGS: Trach, PEG, Hobbs. PHYSICAL EXAMINATION: GENERAL: Well-developed, fragile, elderly man who is in no distress. HEENT: Head atraumatic, normocephalic. Sclerae anicteric. Buccal mucosa dry. NECK: Supple. Tracheostomy present. CHEST: Rise symmetrical. Breath sounds with scattered rhonchi. HEART: S1, S2. ABDOMEN: Soft, bowel tones present. EXTREMITIES: Without cyanosis. ASSESSMENT: 1. Status post sepsis. 2. Pseudomonas aeruginosa urinary tract infection===> treated. 3. Resolved Healthcare-associated pneumonia. 4. Dysphagia. 5. Anemia. PLAN: The patient remains stable, off abx, will scherer cx prn DW staff Problems: Consultation Date/Type/Reason Admit Date/Time Aug 26, 2016 at 06:53 Initial Consult Date 08/25/16 Type of Consultation: ID Exam/Review of Systems Vital Signs Vitals Vital Signs Date Time Temp Pulse Resp B/P Pulse Ox O2 Delivery O2 Flow Rate FiO2 09/06/16 13:58 85 09/06/16 13:30 16 97 30 09/06/16 11:45 97.9 166/74 Intake and Output 09/05/16 09/05/16 09/06/16 15:00 23:00 07:00 Intake Total 100 ml 990 ml 900 ml Output Total 1000 ml 1500 ml Balance 100 ml -10 ml -600 ml Results Result Diagram: 09/05/16 0545 09/05/16 0545 Results 24 hrs Laboratory Tests Test 09/05/16 18:50 09/06/16 00:35 09/06/16 06:49 Troponin I < 0.012 < 0.012 < 0.012 Triglycerides Level 83 Cholesterol Level 58 L LDL Cholesterol, Calculated 18 HDL Cholesterol 23 L Cholesterol/HDL Ratio 2.5 Medications Medications Current Medications Benazepril HCl (Lotensin) 40 mg DAILY GTB Last administered on 09/06/16 09:26; Admin Dose 40 MG; Start 08/26/16 at 09:00 Carbidopa/Levodopa (Sinemet (25/ 100)) 0.5 tab BID GTB Last administered on 09/06 09:26; Admin Dose 0.5 TAB; Start 08/25/16 at 21:00 Clonidine (Catapres) 0.1 mg Q6 PRN GTB SBP>160 Last administered on 09/05/16 04 :16; Admin Dose 0.1 MG; Start 08/25/16 at 13:30 Ferrous Sulfate (Feosol Liquid Cup) 330 mg BID GTB Last administered on 09:26; Admin Dose 330 MG; Start 08/25/16 at 21:00 Finasteride (Proscar) 5 mg DAILY GTB Last administered on 09/06/16 09:27; Admin Dose 5 MG; Start 08/26/16 at 09:00 Gabapentin (Neurontin) 300 mg BID GTB Last administered on 09/06/16 09:; Admin Dose 300 MG; Start 08/25/16 at 21:00 Albuterol/ Ipratropium (Duoneb) 3 ml Q2HWA PRN INH WHEEZING AND SOB; Start at 13:30 Lorazepam (Ativan) 0.5 mg Q6 PRN GTB ANXIETY Last administered on 09/05/16 23: 26; Admin Dose 0.5 MG; Start 08/25/16 at 13:30 Magnesium Oxide (Mag-Ox 400) 400 mg QHS GTB Last administered on 09/05/16 20:02 ; Admin Dose 400 MG; Start 08/25/16 at 21:00 Multivitamins Therapeutic (Theragran) 1 tab DAILY GTB Last administered on 09:27; Admin Dose 1 TAB; Start 08/26/16 at 09:00 Ondansetron HCl (Zofran Tab) 4 mg Q6H PRN GTB NAUSEA AND/OR VOMITING Last administered on 09/04/16 07:38; Admin Dose 4 MG; Start 08/25/16 at 13:30 Pantoprazole (Protonix Tab) 40 mg DAILY PO Last administered on 09/06/16 09:26 ; Admin Dose 40 MG; Start 08/26/16 at 09:00 Acetaminophen (Tylenol Liquid) 650 mg Q6 PRN NGT FEVER GREATER THAN 100.6; Start 08/25/16 at 13:30 Docusate Sodium (Colace Liquid Cup) 100 mg BID GTB Last administered on 09:26; Admin Dose 100 MG; Start 08/25/16 at 21:00 Miscellaneous Information (Pending Santyl Order For Wound Care) This patient suarez... PRN PRN XX WOUND CARE; Start 08/27/16 at 03:00 Collagenase (Santyl) 1 applic DAILY TOP Last administered on 09/06/16 09:27; Admin Dose 1 APPLIC; Start 08/30/16 at 21:00 IV Flush (NS 10 ml) 10 ml PRN PRN IV IV PROTOCOL; Start 08/30/16 at 14:00 Morphine Sulfate (morphine) 1 mg Q4H PRN IV PAIN LEVEL 6-10 Last administered on 09/03/16 16:31; Admin Dose 1 MG; Start 09/01/16 at 13:30 Acetaminophen/ Hydrocodone Bitart ([place] (5/325)) 1 tab Q6H PRN GTB PAIN LEVEL 6-10 Last administered on 09/04/16 07:38; Admin Dose 1 TAB; Start 09/03/16 at 13: 12 Eye Lubricant (Artificial Tears Oph) 2 drop QID BOTH EYES Last administered on 09/06/16 13:04; Admin Dose 2 DROP; Start 09/03/16 at 14:30 Amlodipine Besylate (Norvasc) 5 mg DAILY PO Last administered on 09/06/16 09:27 ; Admin Dose 5 MG; Start 09/06/16 at 09:00 MARI GOODE NP September 06, 2016 14:24
[2016-09-06] MEDS: MAGNESIUM OXIDE 400 MG TAB GTB SCH (21:01)
[2016-09-07] VITALS (19 sets, daily range): BP systolic 123–154; BP diastolic 57–79; PULSE 49–61; RESP 13–21
[2016-09-07] MEDS: LORAZEPAM 0.5 MG TAB GTB PRN (01:04)
[2016-09-07 06:23] LABS: ADD SCAN DIFF NO
[2016-09-07 06:34] LABS: BASOPHILS % 0.4 % (0.0-2.0); EOSINOPHILS # 0.1 10^3/ul (0.0-0.5); EOSINOPHILS % 1.3 % (0.0-7.0); HEMATOCRIT 26.7 % (42.0-52.0); HEMOGLOBIN 8.6 g/dl (14.0-18.0); LYMPHOCYTES # 2.5 10^3/ul (0.8-2.9); LYMPHOCYTES % 24.8 % (15.0-51.0); MEAN CORPUSCULAR HEMOGLOBIN 30.1 pg (29.0-33.0); MEAN CORPUSCULAR HGB CONC 32.2 g/dl (32.0-37.0); MEAN CORPUSCULAR VOLUME 93.4 fl (82.0-101.0); MEAN PLATELET VOLUME 10.7 fl (7.4-10.4); MONOCYTES % 9.5 % (0.0-11.0); NEUTROPHIL # 6.4 10^3/ul (1.6-7.5); NEUTROPHILS % 63.6 % (39.0-77.0); PLATELET COUNT 339 10^3/UL (140-415); RED BLOOD COUNT 2.86 10^6/ul (4.70-6.10); RED CELL DISTRIBUTION WIDTH 14.8 % (11.5-14.5)
[2016-09-07 06:53] LABS: CALCIUM 8.3 mg/dl (8.4-10.2); CREATININE 0.48 mg/dl (0.61-1.24); POTASSIUM 3.9 mmol/L (3.5-5.1)
[2016-09-07] MEDS: FINASTERIDE 5 MG TAB GTB SCH (09:00)
[2016-09-07] MEDS: BENAZEPRIL 40 MG TAB GTB SCH (09:00)
[2016-09-07] MEDS: COLLAGENASE 30 GM TUBE TOP SCH (09:00)
[2016-09-07] MEDS: ARTIFICIAL TEARS 15 ML OPH BOTH EYES SCH ×2 (10:10→13:00)
[2016-09-07] MEDS: CARBIDOPA/LEVODOPA (25/100) TAB GTB SCH (10:10)
[2016-09-07] MEDS: MULTIVITAMINS THERAPEUTIC TAB GTB SCH (10:10)
[2016-09-07] MEDS: AMLODIPINE 5 MG TAB PO SCH (10:11)
[2016-09-07] MEDS: DOCUSATE SODIUM 10 MG/ML (10ML CUP) GTB SCH (10:11)
[2016-09-07] MEDS: FERROUS SULFATE 60 MG/ML 5ML CUP GTB SCH (10:11)
[2016-09-07] MEDS: GABAPENTIN 300 MG CAP GTB SCH (10:11)
[2016-09-07] MEDS: PANTOPRAZOLE (EC) 40 MG TAB PO SCH (10:11)
--- NOTE | 2016-09-07 11:31 | CONS ---
Date/Time of Note Date/Time of Note DATE: 09/07/16 TIME: 11:31 Consult Date/Type/Reason Admit Date/Time Aug 26, 2016 at 06:53 Initial Consult Date 08/25/16 Type of Consultation: pulmonary Subjective No significant changes Objective Vital Signs Date Time Temp Pulse Resp B/P Pulse Ox O2 Delivery O2 Flow Rate FiO2 09/07/16 09:02 57 09/07/16 08:32 16 99 30 09/07/16 07:43 98.5 148/57 Intake and Output 09/06/16 09/06/16 09/07/16 15:00 23:00 07:00 Intake Total 800 ml 840 ml Output Total 750 ml 800 ml Balance 50 ml 40 ml Exam PHYSICAL EXAMINATION GENERAL: Elderly gentleman on mechanical ventilation comfortable at rest VITAL SIGNS: see below. HEENT: Pupils equal, round, and reactive to light. Tracheostomy site clean and intact. CARDIAC: S1, S2, 2/6 systolic ejection murmur CHEST: Diminished air entry bilaterally. ABDOMEN: Mildly distended. Bowel Sounds present no guarding or rebound EXTREMITIES: No cyanosis, clubbing edema +1 NEUROLOGIC: Generalized weakness Results/Medications Result Diagram: 09/07/16 0540 09/07/16 0540 Results 24 hrs Laboratory Tests Test 09/07/16 05:40 White Blood Count 10.0 # Red Blood Count 2.86 L Hemoglobin 8.6 L Hematocrit 26.7 L Mean Corpuscular Volume 93.4 Mean Corpuscular Hemoglobin 30.1 Mean Corpuscular Hemoglobin Concent 32.2 Red Cell Distribution Width 14.8 H Platelet Count 339 Mean Platelet Volume 10.7 H Neutrophils % 63.6 Lymphocytes % 24.8 Monocytes % 9.5 Eosinophils % 1.3 Basophils % 0.4 Nucleated Red Blood Cells % 0.0 Neutrophils # 6.4 Lymphocytes # 2.5 Monocytes # 1.0 H Eosinophils # 0.1 Basophils # 0.0 Nucleated Red Blood Cells # 0.0 Sodium Level 138 Potassium Level 3.9 Chloride Level 103 Carbon Dioxide Level 31 Anion Gap 8 Blood Urea Nitrogen 17 Creatinine 0.48 L Glucose Level 95 Calcium Level 8.3 L Medications Current Medications Benazepril HCl (Lotensin) 40 mg DAILY GTB Last administered on 09/07/16t 09:00 ; Admin Dose 40 MG; Start 08/26/16 at 09:00 Carbidopa/Levodopa (Sinemet (25/ 100)) 0.5 tab BID GTB Last administered on 10:10; Admin Dose 0.5 TAB; Start 08/25/16 at 21:00 Clonidine (Catapres) 0.1 mg Q6 PRN GTB SBP>160 Last administered on 09/06/16 18 :03; Admin Dose 0.1 MG; Start 08/25/16 at 13:30 Ferrous Sulfate (Feosol Liquid Cup) 330 mg BID GTB Last administered on 10:11; Admin Dose 330 MG; Start 08/25/16 at 21:00 Finasteride (Proscar) 5 mg DAILY GTB Last administered on 09/07/16 09:00; Admin Dose 5 MG; Start 08/26/16 at 09:00 Gabapentin (Neurontin) 300 mg BID GTB Last administered on 09/07/16 10:11; Admin Dose 300 MG; Start 08/25/16 at 21:00 Albuterol/ Ipratropium (Duoneb) 3 ml Q2HWA PRN INH WHEEZING AND SOB; Start at 13:30 Lorazepam (Ativan) 0.5 mg Q6 PRN GTB ANXIETY Last administered on 09/07/16 01: 04; Admin Dose 0.5 MG; Start 08/25/16 at 13:30 Magnesium Oxide (Mag-Ox 400) 400 mg QHS GTB Last administered on 09/06/16 21:01 ; Admin Dose 400 MG; Start 08/25/16 at 21:00 Multivitamins Therapeutic (Theragran) 1 tab DAILY GTB Last administered on 09/07 10:10; Admin Dose 1 TAB; Start 08/26/16 at 09:00 Ondansetron HCl (Zofran Tab) 4 mg Q6H PRN GTB NAUSEA AND/OR VOMITING Last administered on 09/04/16 07:38; Admin Dose 4 MG; Start 08/25/16 at 13:30 Pantoprazole (Protonix Tab) 40 mg DAILY PO Last administered on 09/07/16 10:11 ; Admin Dose 40 MG; Start 08/26/16 at 09:00 Acetaminophen (Tylenol Liquid) 650 mg Q6 PRN NGT FEVER GREATER THAN 100.6; Start 08/25/16 at 13:30 Docusate Sodium (Colace Liquid Cup) 100 mg BID GTB Last administered on 10:11; Admin Dose 100 MG; Start 08/25/16 at 21:00 Miscellaneous Information (Pending Santyl Order For Wound Care) This patient suarez... PRN PRN XX WOUND CARE; Start 08/27/16 at 03:00 Collagenase (Santyl) 1 applic DAILY TOP Last administered on 09/07/16 09:00; Admin Dose 1 APPLIC; Start 08/30/16 at 21:00 IV Flush (NS 10 ml) 10 ml PRN PRN IV IV PROTOCOL; Start 08/30/16 at 14:00 Morphine Sulfate (morphine) 1 mg Q4H PRN IV PAIN LEVEL 6-10 Last administered on 09/03/16 16:31; Admin Dose 1 MG; Start 09/01/16 at 13:30 Acetaminophen/ Hydrocodone Bitart ([place] (5/325)) 1 tab Q6H PRN GTB PAIN LEVEL 6-10 Last administered on 09/04/16 07:38; Admin Dose 1 TAB; Start 09/03/16 at 13: 12 Eye Lubricant (Artificial Tears Oph) 2 drop QID BOTH EYES Last administered on 09/07/16 10:10; Admin Dose 2 DROP; Start 09/03/16 at 14:30 Amlodipine Besylate (Norvasc) 5 mg DAILY PO Last administered on 09/07/16 10: 11; Admin Dose 5 MG; Start 09/06/16 at 09:00 Assessment/Plan Chief Complaint/Hosp Course Assessment 1. Resolved sepsis 2. Vent dependent respiratory failure, with acute on chronic hypoxemic respiratory failure 3. Healthcare associated pneumonia, now improved 4. History of Parkinson's disease 5. Anemia likely of chronic disease 6. Dysphagia with G-tube 7. Baseline bradycardia patient remains asymptomatic Plan 1. Continue mechanical ventilation, stable on volume control ventilation 2. Continue PICC line care 3. Consider stopping antibiotics 4. Monitor H&H 5. Continue cardiac recommendations 6. Continue tube feeding as tolerated 7. DVT and GI prophylaxis Disposition Discharge planning, okay from pulmonary standpoint We'll discuss with cardiology Problems: INDER LONDON MD, [facility] September 07, 2016 11:31
--- NOTE | 2016-09-07 13:56 | CONS ---
Date/Time of Note Date/Time of Note DATE: 09/07/16 TIME: 13:55 Assessment/Plan Assessment/Plan Chief Complaint/Hosp Course SUBJECTIVE: No events overnight. No fevers. INDWELLINGS: Trach, PEG, Hobbs. PHYSICAL EXAMINATION: GENERAL: Well-developed, fragile, elderly man who is in no distress. HEENT: Head atraumatic, normocephalic. Sclerae anicteric. Buccal mucosa dry. NECK: Supple. Tracheostomy present. CHEST: Rise symmetrical. Breath sounds with scattered rhonchi. HEART: S1, S2. ABDOMEN: Soft, bowel tones present. EXTREMITIES: Without cyanosis. ASSESSMENT: 1. Status post sepsis. 2. Pseudomonas aeruginosa urinary tract infection===> treated. 3. Resolved Healthcare-associated pneumonia. 4. Dysphagia. 5. Anemia. 6. Bradycardia PLAN: The patient remains stable, off abx, will scherer cx prn, pulmonary/card rec- s DW staff Problems: Consultation Date/Type/Reason Admit Date/Time Aug 26, 2016 at 06:53 Initial Consult Date 08/25/16 Type of Consultation: ID Exam/Review of Systems Vital Signs Vitals Vital Signs Date Time Temp Pulse Resp B/P Pulse Ox O2 Delivery O2 Flow Rate FiO2 09/07/16 13:44 56 15 99 30 09/07/16 11:34 98.1 123/59 Intake and Output 09/06/16 09/06/16 09/07/16 15:00 23:00 07:00 Intake Total 800 ml 840 ml Output Total 750 ml 800 ml Balance 50 ml 40 ml Results Result Diagram: 09/07/16 0540 09/07/16 0540 Results 24 hrs Laboratory Tests Test 09/07/16 05:40 White Blood Count 10.0 # Red Blood Count 2.86 L Hemoglobin 8.6 L Hematocrit 26.7 L Mean Corpuscular Volume 93.4 Mean Corpuscular Hemoglobin 30.1 Mean Corpuscular Hemoglobin Concent 32.2 Red Cell Distribution Width 14.8 H Platelet Count 339 Mean Platelet Volume 10.7 H Neutrophils % 63.6 Lymphocytes % 24.8 Monocytes % 9.5 Eosinophils % 1.3 Basophils % 0.4 Nucleated Red Blood Cells % 0.0 Neutrophils # 6.4 Lymphocytes # 2.5 Monocytes # 1.0 H Eosinophils # 0.1 Basophils # 0.0 Nucleated Red Blood Cells # 0.0 Sodium Level 138 Potassium Level 3.9 Chloride Level 103 Carbon Dioxide Level 31 Anion Gap 8 Blood Urea Nitrogen 17 Creatinine 0.48 L Glucose Level 95 Calcium Level 8.3 L Medications Medications Current Medications Benazepril HCl (Lotensin) 40 mg DAILY GTB Last administered on 09/07/16 09:00 ; Admin Dose 40 MG; Start 08/26/16 at 09:00 Carbidopa/Levodopa (Sinemet (25/ 100)) 0.5 tab BID GTB Last administered on 10:10; Admin Dose 0.5 TAB; Start 08/25/16 at 21:00 Clonidine (Catapres) 0.1 mg Q6 PRN GTB SBP>160 Last administered on 09/06/16 18 :03; Admin Dose 0.1 MG; Start 08/25/16 at 13:30 Ferrous Sulfate (Feosol Liquid Cup) 330 mg BID GTB Last administered on 10:11; Admin Dose 330 MG; Start 08/25/16 at 21:00 Finasteride (Proscar) 5 mg DAILY GTB Last administered on 09/07/16 09:00; Admin Dose 5 MG; Start 08/26/16 at 09:00 Gabapentin (Neurontin) 300 mg BID GTB Last administered on 09/07/16 10:11; Admin Dose 300 MG; Start 08/25/16 at 21:00 Albuterol/ Ipratropium (Duoneb) 3 ml Q2HWA PRN INH WHEEZING AND SOB; Start at 13:30 Lorazepam (Ativan) 0.5 mg Q6 PRN GTB ANXIETY Last administered on 09/07/16 01: 04; Admin Dose 0.5 MG; Start 08/25/16 at 13:30 Magnesium Oxide (Mag-Ox 400) 400 mg QHS GTB Last administered on 09/06/16 21:01 ; Admin Dose 400 MG; Start 08/25/16 at 21:00 Multivitamins Therapeutic (Theragran) 1 tab DAILY GTB Last administered on 09/07 10:10; Admin Dose 1 TAB; Start 08/26/16 at 09:00 Ondansetron HCl (Zofran Tab) 4 mg Q6H PRN GTB NAUSEA AND/OR VOMITING Last administered on 09/04/16 07:38; Admin Dose 4 MG; Start 08/25/16 at 13:30 Pantoprazole (Protonix Tab) 40 mg DAILY PO Last administered on 09/07/16 10:11 ; Admin Dose 40 MG; Start 08/26/16 at 09:00 Acetaminophen (Tylenol Liquid) 650 mg Q6 PRN NGT FEVER GREATER THAN 100.6; Start 08/25/16 at 13:30 Docusate Sodium (Colace Liquid Cup) 100 mg BID GTB Last administered on 10:11; Admin Dose 100 MG; Start 08/25/16 at 21:00 Miscellaneous Information (Pending Santyl Order For Wound Care) This patient suarez... PRN PRN XX WOUND CARE; Start 08/27/16 at 03:00 Collagenase (Santyl) 1 applic DAILY TOP Last administered on 09/07/16 09:00; Admin Dose 1 APPLIC; Start 08/30/16 at 21:00 IV Flush (NS 10 ml) 10 ml PRN PRN IV IV PROTOCOL; Start 08/30/16 at 14:00 Morphine Sulfate (morphine) 1 mg Q4H PRN IV PAIN LEVEL 6-10 Last administered on 09/03/16 16:31; Admin Dose 1 MG; Start 09/01/16 at 13:30 Acetaminophen/ Hydrocodone Bitart ([place] (5/325)) 1 tab Q6H PRN GTB PAIN LEVEL 6-10 Last administered on 09/04/16 07:38; Admin Dose 1 TAB; Start 09/03/16 at 13: 12 Eye Lubricant (Artificial Tears Oph) 2 drop QID BOTH EYES Last administered on 09/07/16 13:00; Admin Dose 2 DROP; Start 09/03/16 at 14:30 Amlodipine Besylate (Norvasc) 5 mg DAILY PO Last administered on 09/07/16 10: 11; Admin Dose 5 MG; Start 09/06/16 at 09:00 MARI GOODE NP September 07, 2016 13:55
--- NOTE | 2016-09-07 15:10 | DS ---
DATE OF ADMISSION: 08/26/2016 DATE OF DISCHARGE: 09/07/2016 FINAL DIAGNOSES: 1. Sepsis secondary to pneumonia and urinary tract infection status post treatment. 2. Healthcare-acquired pneumonia, status post treatment. 3. Pseudomonas urinary tract infection status post treatment. 4. Ventilator-dependent respiratory failure with tracheostomy. 5. Acute on chronic hypoxemic respiratory failure, resolved. 6. Prerenal azotemia, resolved. 7. Cervical myelopathy status post cervical spine and upper thoracic spine surgery. 8. 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 9. Parkinson disease. 10. Dysphagia with percutaneous endoscopic gastrostomy. 11. Hypertension. 12. Congestive heart failure. 13. Gout. 14. Cervical stenosis. 15. Benign prostatic hypertrophy. 16. Sacral and heel pressure ulcers. 17. Gastroesophageal reflux disease. BRIEF HISTORY: The patient is an 81-year-old gentleman who was admitted from [facility] for fever of 101.6. On evaluation in the emergency room, the patient was noted to be septic with possible pneumonia and urinary tract infection. The patient was started on broad spectrum antibiotics and admitted for further evaluation and management to telemetry floor. HOSPITAL COURSE: The patient was evaluated by Dr. Shine in infectious disease consultation. The p lupe's urine culture was positive for Pseudomonas. The patient was also noted to have acute on ch ronic hypoxemic respiratory failure and was transferred to ICU and was closely followed by Dr. Cameron and Dr. Rivera in pulmonology consultation. That resolved, and the patient was transferred back t telemetry floor. The patient's condition improved. The patient completed treatment with antibiot ics; however, noted to have bradycardia and heart rate going to 30s. The patient was evaluated by Santos Chadwick in cardiology consultation. Waylon blocking agents were held. The patient underwent 2D e chocardiogram which revealed normal left ventricular systolic function, abnormal diastolic dysfuncti on with preserved ejection fraction of 60%. The patient was also closely monitored, and heart rate was in the 60s and 50s, sinus bradycardia, sinus rhythm. The patient is awake, alert. The patient was cleared by consultants to be discharged back to [facility]. CONDITION ON DISCHARGE: Hemodynamically stable. ACTIVITY: As patient tolerates. DISCHARGE DIET: Continue G-tube feeding at the current rate. DISCHARGE MEDICATIONS: 1. Tylenol p.r.n. for pain and fever. 2. DuoNeb q. 2 hours p.r.n. for shortness of breath. 3. Norvasc. 4. Artificial tears. 5. Benazepril. 6. Clonidine. 7. Santyl ointment topical. 8. Colace. 9. Ferrous sulfate. 10. Finasteride. 11. Neurontin. 12. Adrian p.r.n. for pain. 13. Sinemet 25/100. 14. Ativan p.r.n. for agitation. 15. Magnesium oxide. 16. Multivitamins. 17. Zofran per the G-tube p.r.n. for nausea. 18. Omeprazole. 19. ProMod. Interdisciplinary plan of care was established for this patient. Plan of care was discussed with Dr Jessica Gonzalez. Dictated By: MARCO DOE HAMPER MAKER MACHINE for CYNTHIA GONZALEZ MD, SR/CHITRA Conf#: [id number] DID#: [id number]
--- NOTE | 2016-09-07 17:04 | CONS ---
Date/Time of Note Date/Time of Note DATE: 09/07/16 TIME: 17:01 Assessment/Plan Assessment/Plan Chief Complaint/Hosp Course IMPRESSION: 1. Bradycardia consistent with sinus bradycardia with having significant episodes down to the high 30s.-most recently no less then 50's 2. Hypertension. 3. Congestive heart failure with preserved left ventricular ejection fraction by echo of this admit. 4. Respiratory failure, chronic, status post tracheostomy. 5. Urinary tract infection. 6. Pneumonia. 7. Dysphagia status post G-tube. 8. Anemia 9. Parkinson's disease. 10. Myelopathy with decubitus ulcers. Recc: -Tele -Continue norvasc/benazepril -PPI -Continue bronchodilators Problems: Consultation Date/Type/Reason Admit Date/Time Aug 26, 2016 at 06:53 Initial Consult Date 08/25/16 Type of Consultation: Cardiology Reason for Consultation bradycardia Referring Provider: CYNTHIA GONZALEZ MD Exam/Review of Systems Vital Signs Vitals Vital Signs Date Time Temp Pulse Resp B/P Pulse Ox O2 Delivery O2 Flow Rate FiO2 09/07/16 16:56 49 09/07/16 15:51 98.9 21 129/61 100 09/07/16 13:44 30 Intake and Output 09/06/16 09/06/16 09/07/16 15:00 23:00 07:00 Intake Total 800 ml 840 ml Output Total 750 ml 800 ml Balance 50 ml 40 ml Exam Review of Systems: CONSTITUTIONAL: No fevers, chills. PULMONARY: trached CARDIOVASCULAR: No chest pain/palpitations GASTROINTESTINAL: No nausea/vomiting. GENITOURINARY: No hematuria/dysuria. MUSCULOSKELETAL: No myagias/arthalgias. PSYCHIATRIC: The patient denies depression. NEUROLOGIC: Encephalopathy Constitutional: other (encephalopathic) Head: normocephalic ENMT: mucosa pink and moist Neck: jvd (9 cm water), supple Respiratory: diminished breath sounds (at bases/B) Cardiovascular: regular rate and rhythm Gastrointestinal: non-tender, soft Musculoskeletal: muscle weakness (generalized) Extremities: edema (trace/B) Results Result Diagram: 09/07/16 0540 09/07/16 0540 Results 24 hrs Laboratory Tests Test 09/07/16 05:40 White Blood Count 10.0 # Red Blood Count 2.86 L Hemoglobin 8.6 L Hematocrit 26.7 L Mean Corpuscular Volume 93.4 Mean Corpuscular Hemoglobin 30.1 Mean Corpuscular Hemoglobin Concent 32.2 Red Cell Distribution Width 14.8 H Platelet Count 339 Mean Platelet Volume 10.7 H Neutrophils % 63.6 Lymphocytes % 24.8 Monocytes % 9.5 Eosinophils % 1.3 Basophils % 0.4 Nucleated Red Blood Cells % 0.0 Neutrophils # 6.4 Lymphocytes # 2.5 Monocytes # 1.0 H Eosinophils # 0.1 Basophils # 0.0 Nucleated Red Blood Cells # 0.0 Sodium Level 138 Potassium Level 3.9 Chloride Level 103 Carbon Dioxide Level 31 Anion Gap 8 Blood Urea Nitrogen 17 Creatinine 0.48 L Glucose Level 95 Calcium Level 8.3 L Medications Medications Current Medications Benazepril HCl (Lotensin) 40 mg DAILY GTB Last administered on 09/07/16 09:00 ; Admin Dose 40 MG; Start 08/26/16 at 09:00 Carbidopa/Levodopa (Sinemet (25/ 100)) 0.5 tab BID GTB Last administered on 10:10; Admin Dose 0.5 TAB; Start 08/25/16 at 21:00 Clonidine (Catapres) 0.1 mg Q6 PRN GTB SBP>160 Last administered on 09/06/16 18 :03; Admin Dose 0.1 MG; Start 08/25/16 at 13:30 Ferrous Sulfate (Feosol Liquid Cup) 330 mg BID GTB Last administered on 10:11; Admin Dose 330 MG; Start 08/25/16 at 21:00 Finasteride (Proscar) 5 mg DAILY GTB Last administered on 09/07/16 09:00; Admin Dose 5 MG; Start 08/26/16 at 09:00 Gabapentin (Neurontin) 300 mg BID GTB Last administered on 09/07/16 10:11; Admin Dose 300 MG; Start 08/25/16 at 21:00 Albuterol/ Ipratropium (Duoneb) 3 ml Q2HWA PRN INH WHEEZING AND SOB; Start at 13:30 Lorazepam (Ativan) 0.5 mg Q6 PRN GTB ANXIETY Last administered on 09/07/16 01: 04; Admin Dose 0.5 MG; Start 08/25/16 at 13:30 Magnesium Oxide (Mag-Ox 400) 400 mg QHS GTB Last administered on 09/06/16 21:01 ; Admin Dose 400 MG; Start 08/25/16 at 21:00 Multivitamins Therapeutic (Theragran) 1 tab DAILY GTB Last administered on 09/07 10:10; Admin Dose 1 TAB; Start 08/26/16 at 09:00 Ondansetron HCl (Zofran Tab) 4 mg Q6H PRN GTB NAUSEA AND/OR VOMITING Last administered on 09/04/16 07:38; Admin Dose 4 MG; Start 08/25/16 at 13:30 Pantoprazole (Protonix Tab) 40 mg DAILY PO Last administered on 09/07/16 10:11 ; Admin Dose 40 MG; Start 08/26/16 at 09:00 Acetaminophen (Tylenol Liquid) 650 mg Q6 PRN NGT FEVER GREATER THAN 100.6; Start 08/25/16 at 13:30 Docusate Sodium (Colace Liquid Cup) 100 mg BID GTB Last administered on 10:11; Admin Dose 100 MG; Start 08/25/16 at 21:00 Miscellaneous Information (Pending Santyl Order For Wound Care) This patient suarez... PRN PRN XX WOUND CARE; Start 08/27/16 at 03:00 Collagenase (Santyl) 1 applic DAILY TOP Last administered on 09/07/16 09:00; Admin Dose 1 APPLIC; Start 08/30/16 at 21:00 IV Flush (NS 10 ml) 10 ml PRN PRN IV IV PROTOCOL; Start 08/30/16 at 14:00 Morphine Sulfate (morphine) 1 mg Q4H PRN IV PAIN LEVEL 6-10 Last administered on 09/03/16 16:31; Admin Dose 1 MG; Start 09/01/16 at 13:30 Acetaminophen/ Hydrocodone Bitart ([place] (5/325)) 1 tab Q6H PRN GTB PAIN LEVEL 6-10 Last administered on 09/04/16 07:38; Admin Dose 1 TAB; Start 09/03/16 at 13: 12 Eye Lubricant (Artificial Tears Oph) 2 drop QID BOTH EYES Last administered on 09/07/16 13:00; Admin Dose 2 DROP; Start 5/6/17 at 14:30 Amlodipine Besylate (Norvasc) 5 mg DAILY PO Last administered on 09/07/16t 10: 11; Admin Dose 5 MG; Start 09/06/16 at 09:00 REMBERTO PÉREZ September 07, 2016 17:04
== END 2016-09-07 16:50 | DRG 870 ==
LOC: E/R 05:10 → TEL 08-26 06:53 → ICU 08-29 17:55 → TEL 09-01 17:06
PROVIDERS: ADMIT Internal Medicine; ATTEND Internal Medicine
PROC: 5A1955Z Respiratory Ventilation, Greater than 96 Consecutive Hours (ICD-10-PCS; principal; 2016-08-26)
PROC: 02HV33Z Insertion of Infusion Device into Superior Vena Cava, Percutaneous Approach (ICD-10-PCS; 2016-08-30)
DX: A41.9 Sepsis, unspecified organism (principal); J96.21 Acute and chronic respiratory failure with hypoxia; J18.9 Pneumonia, unspecified organism; G82.50 Quadriplegia, unspecified; Z99.11 Dependence on respirator [ventilator] status; L89.153 Pressure ulcer of sacral region, stage 3; I11.0 Hypertensive heart disease with heart failure; Z93.0 Tracheostomy status; I50.30 Unspecified diastolic (congestive) heart failure; N39.0 Urinary tract infection, site not specified; E87.1 Hypo-osmolality and hyponatremia; G95.9 Disease of spinal cord, unspecified; G20 Parkinson's disease; B96.5 Pseudomonas (aeruginosa) (mallei) (pseudomallei) as the cause of diseases classified elsewhere; M10.9 Gout, unspecified; N40.0 Benign prostatic hyperplasia without lower urinary tract symptoms; K21.9 Gastro-esophageal reflux disease without esophagitis; R13.10 Dysphagia, unspecified; I25.10 Atherosclerotic heart disease of native coronary artery without angina pectoris; G40.909 Epilepsy, unspecified, not intractable, without status epilepticus; R00.1 Bradycardia, unspecified; M48.02 Spinal stenosis, cervical region; Y95 Nosocomial condition; Z93.1 Gastrostomy status
CPT/HCPCS: 36415; 36569; 36600; 71010; 76937; 80048; 80053; 80061; 80202; 81001; 81003; 82803; 83605; 83735; 83880; 84100; 84443; 84484; 85025; 85610; 85730; 87040; 87081; 87086; 93005; 93306; 93970; 94002; 94003; 96365; 96366; 96368; 96375; 96376; 97162; C1769; J0692; J0743; J2185; J2270; J2997; J3370; J7030

== ENCOUNTER → 2016-10-12 | Outpatient (CLI) | payer MEDICARE, OTHER ==
[~2016-10-12] MED LIST changes: -ACET325S GTB; -ALLO300T2 GTB; -AMLO5TAB4 GTB; -ASCO500S2 GTB; +BARIUM SULFATE 135 ML (E-Z HD) PO ONE; -DOCU-159 GTB; -HYDR-3672 GTB; -LANS30CA GTB; -LEVA1.25 INHALATION; -LEVO500T72 PO; -METO-407 GTB; +OMEP20CA16 GTB; -POLY15DR25 OP; -POLY17PO6 GTB
--- NOTE | 2016-10-12 18:17 | RADRPT ---
PROCEDURE: Video-fluoroscopy swallowing study. CLINICAL INDICATION: Dysphagia. TECHNIQUE: Fluoroscopic guided video swallowing study was done in conjunction with the speech ther apist. The study was confined to the oral, pharyngeal, and cervical phases of the swallowing mechani sm. 1.6 minutes of fluoroscopy time was used. COMPARISON: No prior study is available for comparison. FINDINGS: There is silent aspiration during swallowing puree and thin liquid. IMPRESSION: 1. Abnormal study with silent aspiration. 2. Please refer to the speech therapist's recommendations for future feedings. RPTAT: QQ .Андрей Damon MD, MD Date Time Electronically viewed and signed by .Андрей Damon MD, on 10/12/2016 18:16 .R/
== END | disposition home or self-care (01) ==
LOC: RAD 12:11
PROVIDERS: ATTEND Internal Medicine
DX: R13.10 Dysphagia, unspecified (principal)
CPT/HCPCS: 74230; 92611; G8996; G8997; G8998

== ENCOUNTER 2016-11-17 19:20 | Inpatient (IN) | payer MEDICARE, OTHER ==
[~2016-11-17] VITALS: Ht 162.6 cm; Wt 61.1 kg
[~2016-11-17 19:20] MED LIST changes: -BARIUM SULFATE 135 ML (E-Z HD) PO ONE
[2016-11-17 20:05] LABS: ADD SCAN DIFF NO
[2016-11-17 20:08] LABS: BASOPHILS % 0.2 % (0.0-2.0); EOSINOPHILS # 0.2 10^3/ul (0.0-0.5); EOSINOPHILS % 0.9 % (0.0-7.0); HEMATOCRIT 37.3 % (42.0-52.0); HEMOGLOBIN 11.6 g/dl (14.0-18.0); LYMPHOCYTES # 2.3 10^3/ul (0.8-2.9); LYMPHOCYTES % 12.2 % (15.0-51.0); MEAN CORPUSCULAR HEMOGLOBIN 28.9 pg (29.0-33.0); MEAN CORPUSCULAR HGB CONC 31.1 g/dl (32.0-37.0); MEAN PLATELET VOLUME 9.9 fl (7.4-10.4); MONOCYTE # 1.2 10^3/ul (0.3-0.9); NEUTROPHIL # 15.3 10^3/ul (1.6-7.5); NEUTROPHILS % 80.3 % (39.0-77.0); PLATELET COUNT 254 10^3/UL (140-415); RED BLOOD COUNT 4.01 10^6/ul (4.70-6.10); RED CELL DISTRIBUTION WIDTH 15.8 % (11.5-14.5); WHITE BLOOD COUNT 19.1 10^3/ul (4.8-10.8)
[2016-11-17 20:21] LABS: INR 1.07; PROTIME 13.9 Sec (12.2-14.2); PT RATIO 1.1
[2016-11-17 20:25] LABS: ALANINE AMINOTRANSFERASE 51 IU/L (13-69); ALBUMIN 3.6 g/dl (3.3-4.9); ALBUMIN/GLOBULIN RATIO 0.75; ALKALINE PHOSPHATASE 129 IU/L (42-121); ANION GAP 17 (8-16); ASPARTATE AMINO TRANSFERASE 35 IU/L (15-46); BILIRUBIN,INDIRECT 0.5 mg/dl (0-1.1); BILIRUBIN,TOTAL 0.5 mg/dl (0.2-1.3); BLOOD UREA NITROGEN 48 mg/dl (7-20); CALCIUM 9.2 mg/dl (8.4-10.2); CARBON DIOXIDE 30 mmol/L (21-31); CHLORIDE 100 mmol/L (97-110); CREATININE 1.04 mg/dl (0.61-1.24); GLUCOSE 133 mg/dl (70-220); POTASSIUM 5.6 mmol/L (3.5-5.1); SODIUM 141 mmol/L (135-144); TOTAL PROTEIN 8.4 g/dl (6.1-8.1)
[2016-11-17 20:36] LABS: TROPONIN-I < 0.012 ng/ml (0.00-0.12)
[2016-11-17 20:42] LABS: ADD UMIC YES; UR ASCORBIC ACID 40 mg/dL (NEGATIVE); UR BACTERIA FEW /HPF (NONE SEEN); UR BILIRUBIN (Dip) NEGATIVE (NEGATIVE); UR BLOOD (Dip) NEGATIVE (NEGATIVE); UR CLARITY CLOUDY (CLEAR); UR COLOR AMBER (YELLOW); UR GLUCOSE (Dip) NEGATIVE (NEGATIVE); UR KETONES (Dip) NEGATIVE (NEGATIVE); UR LEUKOCYTE ESTERASE (Dip) 3+ Leu/ul (NEGATIVE); UR MUCUS FEW /HPF (NONE SEEN); UR NITRITE (Dip) NEGATIVE (NEGATIVE); UR RBC 9 /HPF (0-5); UR SPECIFIC GRAVITY (Dip) 1.018 (1.003-1.030); UR TOTAL PROTEIN (Dip) 2+ mg/dl (NEGATIVE); UR UROBILINOGEN (Dip) NEGATIVE (NEGATIVE)
[2016-11-17] MEDS ORDERED: SODIUM CHLORIDE 0.9% 1L BAG IV* STA ×2 (20:53→21:31)
[2016-11-17] MEDS ORDERED: CEFTRIAXONE 1 GM/50 ML (PMX) 50 ML IVPB ONE (21:00)
[2016-11-17] MEDS ORDERED: ACETAMINOPHEN 650MG/20.3ML CUP PEG ONE (21:00)
[2016-11-17] MEDS ORDERED: ACETAMINOPHEN 325 MG TAB PO PRN (21:00)
[2016-11-17] MEDS ORDERED: ONDANSETRON 4 MG INJ IV PRN (21:00)
[2016-11-17] MEDS ORDERED: SOD CHLORIDE 0.9% 1,000 ML IV STA (21:07)
--- NOTE | 2016-11-17 21:09 | RADRPT ---
PROCEDURE: Chest x-ray CLINICAL INDICATION: Shortness of breath TECHNIQUE: Chest single view COMPARISON: 08/31/2016 FINDINGS: Tracheostomy tube remains good position. Stable mild cardiomegaly and atherosclerotic aortic calcif ication. Pulmonary vessels normal in caliber. Lungs grossly clear. Costophrenic angles are sharp. There is lower thoracic and upper lumbar spine fusion. Cervical spine fusion is also seen. Bones are osteopenic. IMPRESSION: 1. Tracheostomy tube remains good position. 2. Stable cardiomegaly and an sclerotic aortic calcification. 3. Chronic interstitial changes through the right lung. 4. No acute infiltrate identified RPTAT: HH .Lavell Mendez MD, Date Time Electronically viewed and signed by .Lavell Mendez MD, on 11/17/2016 21:09 .W/
--- NOTE | 2016-11-17 21:17 | ERA ---
ER Documentation Chief Complaint Date/Time DATE: 11/17/16 TIME: 21:11 Chief Complaint Elavated Temp HPI This is an 81-year-old male with a history of hypertension, vent dependent respiratory failure presents to the emergency room after being sent in by his primary care physician for evaluation of a temperature from his fci. The patient is unable to give detailed history secondary to his clinical condition. ROS All systems reviewed and are negative except as per history of present illness. Medications Home Meds Reported Medications Omeprazole* (Omeprazole*) 20 Mg Capsule.dr, 20 MG GTB DAILY, #30 CAP 08/25/16 Ipratropium-Albuterol (Ipratropium-Albuterol) 0.5-3 Mg/3 Ml Ampul.neb, 3 ML INHALATION Q2HWA Y for WHEEZING AND SOB, #30 VIAL 08/25/16 Ferrous Sulfate (Ferrous Sulfate) 300 Mg/5 Ml Liquid, 330 MG GTB BID 07/04/16 Multivitamins* (Theragran*) 1 Tab Tab, 1 TAB GTB DAILY, TAB 07/04/16 Ondansetron Hcl* (Zofran*) 4 Mg Tablet, 4 MG GTB Q6H Y for NAUSEA AND OR VOMITING, TAB 07/04/16 Finasteride* (Finasteride*) 5 Mg Tablet, 5 MG GTB DAILY, TAB 07/04/16 Protein Supplement (Promod) 946 Ml Liquid, 30 ML GTB DAILY 07/04/16 Hydrocodone/Acetaminophen ([place] 5-325 Tablet) 1 Each Tablet, 1 EACH GTB prn, TAB everyday dhift for pain management prior to wound care 07/04/16 Hydrocodone/Acetaminophen ([place] 5-325 Tablet) 1 Each Tablet, 1 EACH GTB Q6 Y for PAIN, TAB 07/04/16 Magnesium Oxide* (Mag-Oxide*) 400 Mg Tablet, 400 MG GTB QHS, TAB 07/04/16 Gabapentin* (Gabapentin*) 300 Mg Capsule, 300 MG GTB BID, #60 CAP 07/04/16 Clonidine Hcl* (Clonidine Hcl*) 0.1 Mg Tab, 0.1 MG GTB Q6 Y for ELEVATED BLOOD PRESSURE, TAB 07/04/16 Carbidopa-Levodopa* (Sinemet*) 25-100 Mg Tab, 0.5 TAB GTB BID, TAB 07/04/16 Benazepril Hcl* (Benazepril Hcl*) 40 Mg Tablet, 40 MG GTB DAILY, #30 TAB HOLD IF LESS THAN 110 OR HR LESS THAN 60 07/04/16 Lorazepam* (Ativan*) 0.5 Mg Tablet, 0.5 MG GTB Q6 Y for ANXIETY, #30 TAB 07/04/16 Allergies Allergies: Coded Allergies: Penicillins (Verified Allergy, Intermediate, Rash, 09/01/16) egg (Verified Allergy, Mild, Rash, 09/01/16) PMhx/Soc History of Surgery: Yes Anesthesia Reaction: No Hx Neurological Disorder: Yes (CHRONIC ALTERED MENTAL PARKINSON'S EPILEPSY) Hx Respiratory Disorders: Yes (TRACH VENT DEPENDENT RESP FAILURE) Hx Psychiatric Problems: No Hx Miscellaneous Medical Probl: Yes (see PT note) Hx Alcohol Use: No Hx Substance Use: No Hx Tobacco Use: No Smoking Status: Never smoker Physical Exam Vitals Vital Signs Date Time Temp Pulse Resp B/P Pulse Ox O2 Delivery O2 Flow Rate FiO2 11/17/16 19:30 100.5 107 24 115/58 100 11/17/16 19:30 Bag Valve Mask Physical Exam INITIAL VITAL SIGNS: Reviewed by me GENERAL: The patient is well developed and appropriate for usual state of health in no apparent distress HEENT: Pupils equal, round, and reactive to light. EOMI. There is no scleral icterus. NECK: Tracheostomy in place, leaking air around ostomy C-spine is soft and supple, there is no meningismus. There is no cervical lymphadenopathy. LUNGS: Clear to auscultation bilaterally. There are no rales, wheezes or rhonchi. HEART: Tachycardic, no murmurs, clicks, rubs or gallops. ABDOMEN: PEG tube in place, soft, non-tender, non-distended. There are bowel sounds in all four quadrants. No rebound or guarding. EXTREMITIES: There is no peripheral cyanosis or edema. No focal swelling or erythema. NEUROLOGICAL: Contracted lower extremity. Cranial nerves II - XII are intact. Normal gait. Alert and oriented SKIN: There is no apparent rash or petechiae. HEME/LYMPHATIC: There is no evidence of excessive bruising or lymphedema. PSYCHIATRIC: The patient does not appear anxious or depressed. Result Diagram: 11/17/16194411/17/161944 Results 24 hrs Laboratory Tests Test 11/17/16 19:45 White Blood Count 19.110^3/ul Red Blood Count 4.0110^6/ul Hemoglobin 11.6g/dl Hematocrit 37.3% Mean Corpuscular Volume 93.0fl Mean Corpuscular Hemoglobin 28.9pg Mean Corpuscular Hemoglobin Concent 31.1g/dl Red Cell Distribution Width 15.8% Platelet Count 40099^3/UL Mean Platelet Volume 9.9fl Neutrophils % 80.3% Lymphocytes % 12.2% Monocytes % 6.0% Eosinophils % 0.9% Basophils % 0.2% Neutrophils # 15.310^3/ul Lymphocytes # 2.310^3/ul Monocytes # 1.210^3/ul Eosinophils # 0.210^3/ul Basophils # 0.010^3/ul Nucleated Red Blood Cells # 0.010^3/ul Prothrombin Time 13.9Sec Prothrombin Time Ratio 1.1 INR International Normalized Ratio 1.07 Activated Partial Thromboplast Time 36.0Sec Urine Color [place]IR[place]IE Urine Clarity CLOUDY Urine pH 9.0 Urine Specific [place] 1.018 Urine Ketones NEGATIVEmg/dL Urine Nitrite NEGATIVEmg/dL Urine Bilirubin NEGATIVEmg/dL Urine Urobilinogen NEGATIVEmg/dL Urine Leukocyte Esterase 3+Tory/ul Urine Microscopic RBC 9/HPF Urine Microscopic WBC 24/HPF Urine Bacteria FEW/HPF Urine Mucus FEW/HPF Urine Hemoglobin NEGATIVEmg/dL Urine Glucose NEGATIVEmg/dL Urine Total Protein 2+mg/dl Sodium Level 141mmol/L Potassium Level 5.6mmol/L Chloride Level 100mmol/L Carbon Dioxide Level 30mmol/L Anion Gap 17 Blood Urea Nitrogen 48mg/dl Creatinine 1.04mg/dl Glucose Level 133mg/dl Lactic Acid Level 2.1mmol/L Calcium Level 9.2mg/dl Total Bilirubin 0.5mg/dl Direct Bilirubin 0.00mg/dl Indirect Bilirubin 0.5mg/dl Aspartate Amino Transf (AST/SGOT) 35IU/L Alanine Aminotransferase (ALT/SGPT) 51IU/L Alkaline Phosphatase 129IU/L Troponin I < 0.012ng/ml Total Protein 8.4g/dl Albumin 3.6g/dl Globulin 4.80g/dl Albumin/Globulin Ratio 0.75 Current Medications Medications (Trade) Dose Ordered Sig/Tonny Route PRN Reason Start Time Stop Time Status Last Admin Dose Admin Ceftriaxone Sodium (Rocephin) 50 ml @ 100 mls/hr ONCE ONCE IVPB 11/17/16 21:00 11/17/16 21:29 11/17/16 21:07 Sodium Chloride (NS) 2,170 ml BOLUS OVER 2 HOURS STAT IV* 11/17/16 20:53 11/17/16 21:08 DC Ondansetron HCl (Zofran Inj) 4 mg ER BRIDGE PRN IV NAUSEA AND/OR VOMITING 11/17/16 21:00 11/18/16 20:59 Acetaminophen (Tylenol Tab) 650 mg ER BRIDGE PRN PO MILD PAIN/FEVER 11/17/16 21:00 11/18/16 20:59 Acetaminophen 650 mg 650 mg ONCE ONCE PEG 11/17/16 21:00 11/17/16 21:01 DC Sodium Chloride (NS) 1,000 ml @ 1,000 mls/hr Q1H STAT IV 11/17/16 21:07 11/17/16 22:06 Procedures/MDM EKG: Rate/Rhythm: Sinus tachycardia QRS, ST, T-waves: [No changes consistent w/ acute ischemia] Impression: [No evidence of ischemia or arrhythmia] Chest X-ray 1V Interpreted by me: Soft Tissue: No acute abnormalities Bones: No acute abnormalities Mediastinum/Cardiac Silhouette/Lungs: [No acute abnormalities] This 81-year-old male presents to the ER for evaluation of fever. When I evaluated this patient he was tachycardic, did have a rectal temperature greater than 101F. The patient did have a septic workup which demonstrates a urinary tract infection with a leukocytosis that does meet sepsis criteria.. He was given 30 cc/kg of IV normal saline. The patient was started on Rocephin after blood and urine cultures were obtained. There is no need for central line at this time as this patient's mean arterial pressures greater than 65. I talked to this patient's admitting physician, Dr. sandoval would like this patient admitted at this time. The patient will be placed on telemetry floor at this time for sepsis. This patient also had a leaking trach collar. I did replace the trach collar with a no other cuffed Shiley tracheostomy with no complication. Patient is maintaining adequate volumes on the ventilator at this time. The patient did have a potassium elevation of 5.6. The patient was given 1 amp of calcium gluconate IV. Departure Diagnosis: Primary Impression: Sepsis Additional Impressions: Acute cystitis Tracheostomy complication Hyperkalemia Condition: Serious JAD NINA DO Nov 17, 2016 21:17
[2016-11-17] MEDS ORDERED: CALCIUM GLUCONATE 10% 1 GM in SOD CHLORIDE 0.9% 100 ML IVPB ONE (21:30)
[2016-11-17] MEDS ORDERED: ACET-2047 GTB (21:30)
[2016-11-17] MEDS ORDERED: AMLO5TAB4 GTB (21:33)
[2016-11-17] MEDS ORDERED: DEXT15DR2 BOTH EYES (21:35)
[2016-11-17] MEDS ORDERED: DOCU-159 GTB (21:37)
[2016-11-17] MEDS ORDERED: IPRA3AMP INHALATION (21:39)
[2016-11-17] MEDS ORDERED: EPOE10002 IJ (21:41)
[2016-11-17] MEDS ORDERED: FINA5TAB GTB (21:42)
[2016-11-17] MEDS ORDERED: AMIN30LI GTB (21:43)
[2016-11-17] MEDS ORDERED: ASCO500C7 GTB (21:43)
[2016-11-17 23:00] VITALS: Ht 162.6 cm; Wt 61.1 kg
[2016-11-17 23:15] VITALS: RESP 15
[2016-11-18] VITALS (24 sets, daily range): BP systolic 123–135; BP diastolic 50–82; PULSE 62–84; RESP 15–86
[2016-11-18] MEDS ORDERED: LORAZEPAM 0.5 MG TAB GTB PRN (00:30)
[2016-11-18] MEDS ORDERED: ACETAMINOPHEN 650MG/20.3ML CUP GTB PRN (00:30)
[2016-11-18] MEDS ORDERED: ONDANSETRON 4 MG TAB GTB PRN (00:30)
[2016-11-18] MEDS ORDERED: HYDROCODONE/APAP (5/325) TAB GTB PRN (00:30)
[2016-11-18] MEDS: SOD CHLORIDE 0.45% 1,000 ML IV SCH ×2 (01:08→16:24)
[2016-11-18] MEDS ORDERED: ALBUTEROL/IPRATROPIUM (NEB) 3 ML AMP HHN PRN (01:22)
[2016-11-18] MEDS ORDERED: ALBUTEROL 18 GM INHALER INH PRN (03:00)
[2016-11-18] MEDS ORDERED: IPRATROPIUM (HFA) 12.9 GM INHALER INH PRN (03:00)
[2016-11-18] MEDS ORDERED: PENDING SANTYL ORDER FOR WOUND CARE XX PRN (03:30)
[2016-11-18] MEDS: LANSOPRAZOLE 30 MG CAP GTB SCH (06:30)
[2016-11-18] MEDS: FERROUS SULFATE 60 MG/ML 5ML CUP GTB SCH ×2 (06:30→18:20)
[2016-11-18 06:34] LABS: ADD SCAN DIFF NO
[2016-11-18 06:37] LABS: ABNORMAL IP MESSAGE 1; BASOPHIL # 0.1 10^3/ul (0.0-0.1); BASOPHILS % 0.2 % (0.0-2.0); EOSINOPHILS # 0.2 10^3/ul (0.0-0.5); EOSINOPHILS % 0.7 % (0.0-7.0); HEMATOCRIT 31.2 % (42.0-52.0); HEMOGLOBIN 9.9 g/dl (14.0-18.0); LYMPHOCYTES # 2.2 10^3/ul (0.8-2.9); LYMPHOCYTES % 8.8 % (15.0-51.0); MEAN CORPUSCULAR HEMOGLOBIN 29.8 pg (29.0-33.0); MEAN CORPUSCULAR HGB CONC 31.7 g/dl (32.0-37.0); MONOCYTE # 1.2 10^3/ul (0.3-0.9); MONOCYTES % 4.7 % (0.0-11.0); NEUTROPHIL # 20.8 10^3/ul (1.6-7.5); NEUTROPHILS % 84.9 % (39.0-77.0); RED BLOOD COUNT 3.32 10^6/ul (4.70-6.10); RED CELL DISTRIBUTION WIDTH 15.9 % (11.5-14.5); WHITE BLOOD COUNT 24.5 10^3/ul (4.8-10.8)
[2016-11-18 06:48] LABS: PLATELET COUNT 140 10^3/UL (140-415)
[2016-11-18 07:10] LABS: CALCIUM 8.6 mg/dl (8.4-10.2); CREATININE 0.79 mg/dl (0.61-1.24)
[2016-11-18] MEDS ORDERED: NA POLYST SULFON 15 GM/60 ML BTL PO ONE (07:30)
[2016-11-18] MEDS ORDERED: ALBUTEROL/IPRATROPIUM (NEB) 3 ML AMP HHN SCH (08:00)
[2016-11-18] MEDS: IPRATROPIUM (HFA) 12.9 GM INHALER INH SCH ×3 (08:30→20:49)
[2016-11-18] MEDS: ALBUTEROL 18 GM INHALER INH SCH ×3 (08:31→20:49)
[2016-11-18] MEDS ORDERED: NON-FORMULARY/PATIENT OWN MED (Amino Acids/Protein Hydrolys (Pro-Stat Liquid) 30 ML) GTB SCH (09:00)
[2016-11-18] MEDS: FINASTERIDE 5 MG TAB GTB SCH (09:12)
[2016-11-18] MEDS: CARBIDOPA/LEVODOPA (25/100) TAB GTB SCH ×2 (09:12→20:53)
[2016-11-18] MEDS: MULTIVITAMINS 30 ML CUP GTB SCH (09:12)
[2016-11-18] MEDS: ARTIFICIAL TEARS 15 ML OPH BOTH EYES SCH ×4 (09:12→20:53)
[2016-11-18] MEDS: ASCORBIC ACID 500 MG TAB GTB SCH (09:12)
[2016-11-18] MEDS: DOCUSATE SODIUM 100 MG CAP PO SCH ×2 (09:12→20:53)
[2016-11-18] MEDS: BENAZEPRIL 40 MG TAB GTB SCH (09:13)
[2016-11-18] MEDS: GABAPENTIN (50 MG/ML PO SYG) GTB SCH ×2 (09:13→20:54)
[2016-11-18] MEDS: AMLODIPINE 5 MG TAB GTB SCH (09:13)
--- NOTE | 2016-11-18 11:43 | HP ---
Date/Time of Note Date/Time of Note DATE: 11/18/16 TIME: 11:16 Assessment/Plan VTE Prophylaxis VTE Prophylaxis Intervention: SCD's Lines/Catheters IV [facility]from [facility] Peripheral IV Urinary Cath still in place: Yes Reason Cath still needed: urinary retention Assessment/Plan Assessment/Plan - Sepsis, continue IV fluids, telemetry monitoring, antibiotics. Dr. Shine is asked to see patient in ID consultation. - Acute cystitis - Possible tracheobronchitis - Hyperkalemia, improved after treatment. - Status post cervical laminectomy for cervical and upper thoracic stenosis - History of cystic mass - Ventilator dependent respiratory failure with tracheostomy,Dr. Rivera is following patient in pulmonology consultation. Dr. Cho is asked to see patient in ENT consultation. - Left lower extremity weakness, Dr. Caballero is asked to see patient in neurology consultation. - Dysphagia with G-tube. - Parkinson's disease - Hypertension Further recommendations based on clinical course. Plan of care discussed with Dr. Manriquez. 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 Sorensen, patient with ventilator dependent respiratory failure with tracheostomy and dysphagia with G-tube, Parkinson's disease, hypertension, anemia. Patient also developed cystic mass and was evaluated by Dr. Cho in ENT consultation with recommendation for conservative treatment. [facility] fever. On admission to the hospital patient is found to be tachycardic with fever 101. Septic workup revealed urinary tract infection with leukocytosis. Per respiratory therapy and nurse patient has copious secretions from the tracheostomy. Patient was diagnosed with sepsis and was started on IV fluids and Rocephin. Patient also complains of tracheal pain at the tracheostomy site with some air leak. Patient will be admitted for further evaluation and management. ROS 12 point review of system is negative unless for mentioned in HPI. PMH/Family/Social Past Medical History Per HPI Medical History: hypertension Past Surgical History Per HPI Family History Significant Family History: no pertinent family hx Social History Alcohol Use: none Smoking Status: Never smoker Drug Use: none Exam/Review of Systems Vital Signs Vitals Vital Signs Date Time Temp Pulse Resp B/P Pulse Ox O2 Delivery O2 Flow Rate FiO2 11/18/16 09:20 86 86 97 40 11/18/16 07:38 98.0 135/60 11/17/16 21:30 Mechanical Ventilator Intake and Output 11/17/16 11/17/16 11/18/16 14:59 22:59 06:59 Intake Total 575 ml Output Total 400 ml Balance 175 ml Exam Constitutional: alert, non-verbal, oriented Psych: no complaints Head: atraumatic, normocephalic Eyes: nl conjunctiva Neck: other (Tracheostomy), supple Respiratory: diminished breath sounds Cardiovascular: nl pulses Gastrointestinal: non-tender, other (G-tube), soft Musculoskeletal: muscle weakness Extremities: normal pulses Neurological: nl mental status, other (Quadriparesis) Labs Result Diagram: 11/18/1608 11/18/16607 Medications Medications Current Medications Sodium Chloride (1/2 NS) 1,000 ml @ 60 mls/hr [id number] IV Last administered on 11/18/16 01:08; Admin Dose 60 MLS/HR; Start 11/18/16 at 00:00 Acetaminophen (Tylenol Liquid) 650 mg Q6H PRN GTB MILD PAIN LEVEL 1-3; Start at 00:30 Amlodipine Besylate (Norvasc) 5 mg DAILY GTB Last administered on 11/18/16 09: 13; Admin Dose 5 MG; Start 11/18/16 at 09:00 Ascorbic Acid (Vitamin C) 500 mg DAILY GTB Last administered on 11/18/16 09:12 ; Admin Dose 500 MG; Start 11/18/16 at 09:00 Benazepril HCl (Lotensin) 40 mg DAILY GTB Last administered on 11/18/16 09:13 ; Admin Dose 40 MG; Start 11/18/16 at 09:00 Carbidopa/Levodopa (Sinemet (25/ 100)) 0.5 tab BID GTB Last administered on 09:12; Admin Dose 0.5 TAB; Start 11/18/16 at 09:00 Clonidine (Catapres) 0.1 mg Q6 PRN GTB ELEVATED BLOOD PRESSURE; Start 11/18/16 at 00:30 Eye Lubricant (Artificial Tears Oph) 2 drop QID BOTH EYES Last administered on 11/18/16 09:12; Admin Dose 2 DROP; Start 11/18/16 at 09:00 Docusate Sodium (Colace) 100 mg BID PO Last administered on 11/18/16 09:12; Admin Dose 100 MG; Start 11/18/16 at 09:00 Epoetin Tree (Epogen (Oncology)) 10,000 units We@17 SC ; Start 11/23/16 at 17:00 Ferrous Sulfate (Feosol Liquid Cup) 330 mg BID@,18 GTB Last administered on 06:30; Admin Dose 330 MG; Start 11/18/16 at 06:00 Finasteride (Proscar) 5 mg DAILY GTB Last administered on 11/18/16 09:12; Admin Dose 5 MG; Start 11/18/16 at 09:00 Gabapentin (Neurontin Liquid) 300 mg BID GTB Last administered on 11/18/16 09: 13; Admin Dose 300 MG; Start 11/18/16 at 09:00 Acetaminophen/ Hydrocodone Bitart ([place] (5/325)) Give 5/325 mg Q6HRS PRN ... Q6 PRN GTB PAIN; Start 11/18/16 at 00:30 Magnesium Oxide (Mag-Ox 400) 400 mg QHS GTB ; Start 11/18/16 at 21:00 Multivitamins (Multivitamin) 30 ml DAILY GTB Last administered on 11/18/16 09: 12; Admin Dose 30 ML; Start 11/18/16 at 09:00 Ondansetron HCl (Zofran Tab) 4 mg Q6H PRN GTB NAUSEA AND/OR VOMITING; Start at 00:30 Miscellaneous Information 30 ml BID GTB ; Start 11/18/16 at 09:00; Status UNV Lansoprazole (Prevacid) 30 mg DAILY@06 GTB Last administered on 11/18/16 06:30 ; Admin Dose 30 MG; Start 11/18/16 at 06:00 Lorazepam (Ativan) 0.5 mg Q6H PRN GTB ANXIETY; Start 11/18/16 at 01:00 [facility] This patient suarez... PRN PRN XX WOUND CARE; Start 11/18/16 at 03:30 MARCO DOE Nov 18, 2016 11:29
--- NOTE | 2016-11-18 12:17 | CONS ---
Date/Time of Note Date/Time of Note DATE: 11/18/16 TIME: 12:10 Assessment/Plan Assessment/Plan Chief Complaint/Hosp Course 81 yo male with prior cervical surgery with quadriparesis at baseline in [place], ventilator and G-Tube dependent admitted for sepsis work up. LLE weakness present for 3-4 months? Unclear period of time of LLE weakness patient denies this being an acute issue may obtain further Brain and Spine imaging to evaluate for potential new CVA or cord compression, possible lumbar radiculopathy (MRI Brain w/ contrast, MRI Cervical Spine, Thoracic Spine w/o contrast, Lumbar Spine) outpatient EMG/NCV testing may also be helpful if possible obtain further collateral history regarding duration of the weakness will follow Problems: Consultation Date/Type/Reason Admit Date/Time Nov 17, 2016 at 20:56 Date of Consultation: Nov 18, 2016 Type of Consultation: Neurology Reason for Consultation LLE weakness Referring Provider: MARCO DOE Hx of Present Illness 81 yo male with history of cervical and thoracic spinal stenosis, qaudriparesis at baseline s/p cervical laminectomy with ventilator dependent respiratory failure, tracheostomy and G- Tube, Parkinson's disease reported, HTN, anemia. He is admitted for sepsis work up for UTI, also with copious secretions from tracheostomy. He complains of throat pain as well as weakness in LLE, which has been ongoing for 4 months according to history from patient. He denies any pain in his LLE, is able to lift the right LE anti-gravity briefly. Subjective hx not possible: pt non-verbal Psychological: no complaints Past Medical History Medical History: hypertension Social History Alcohol Use: none Smoking Status: Never smoker Drug Use: none Exam/Review of Systems Vital Signs Vitals Vital Signs Date Time Temp Pulse Resp B/P Pulse Ox O2 Delivery O2 Flow Rate FiO2 11/18/16 11:20 87 18 98 40 11/18/16 07:38 98.0 135/60 11/17/16 21:30 Mechanical Ventilator Intake and Output 11/17/16 11/17/16 11/18/16 15:00 23:00 07:00 Intake Total 575 ml Output Total 400 ml Balance 175 ml Exam awake and alert attentive to examiner no neglect tracks CN: LAURIE, blinks appropriately no significant facial asymmetry tracheostomy in place Motor: lifts arms 4/5 strength, RLE lifts briefly anti-gravity 3/5 LLE some contraction 1/5 but minimal movement Reflexes 1 UE, absent LE toes mute Results Result Diagram: 11/18/16 0608 11/18/16 0608 Results 24 hrs Laboratory Tests Test 11/17/16 19:45 11/17/16 21:05 11/18/16 00:54 11/18/16 06:08 White Blood Count 19.1 #H 24.5 #H Red Blood Count 4.01 #L 3.32 L Hemoglobin 11.6 #L 9.9 L Hematocrit 37.3 #L 31.2 L Mean Corpuscular Volume 93.0 94.0 Mean Corpuscular Hemoglobin 28.9 L 29.8 Mean Corpuscular Hemoglobin Concent 31.1 L 31.7 L Red Cell Distribution Width 15.8 H 15.9 H Platelet Count 254 # 140 # Mean Platelet Volume 9.9 12.0 #H Neutrophils % 80.3 H 84.9 H Lymphocytes % 12.2 L 8.8 L Monocytes % 6.0 4.7 Eosinophils % 0.9 0.7 Basophils % 0.2 0.2 Neutrophils # 15.3 H 20.8 H Lymphocytes # 2.3 2.2 Monocytes # 1.2 H 1.2 H Eosinophils # 0.2 0.2 Basophils # 0.0 0.1 Nucleated Red Blood Cells # 0.0 0.0 Prothrombin Time 13.9 Prothrombin Time Ratio 1.1 INR International Normalized Ratio 1.07 Activated Partial Thromboplast Time 36.0 H Urine Color [place]IR[place]IE Urine Clarity CLOUDY A Urine pH 9.0 Urine Specific [place] 1.018 Urine Ketones NEGATIVE Urine Nitrite NEGATIVE Urine Bilirubin NEGATIVE Urine Urobilinogen NEGATIVE Urine Leukocyte Esterase 3+ H Urine Microscopic RBC 9 H Urine Microscopic WBC 24 H Urine Bacteria FEW A Urine Mucus FEW A Urine Hemoglobin NEGATIVE Urine Glucose NEGATIVE Urine Total Protein 2+ H Sodium Level 141 142 Potassium Level 5.6 H 5.0 Chloride Level 100 105 Carbon Dioxide Level 30 24 Anion Gap 17 H 18 H Blood Urea Nitrogen 48 H 41 H Creatinine 1.04 0.79 Glucose Level 133 161 Lactic Acid Level 2.1 H 1.1 0.8 Calcium Level 9.2 8.6 Total Bilirubin 0.5 Direct Bilirubin 0.00 Indirect Bilirubin 0.5 Aspartate Amino Transf (AST/SGOT) 35 Alanine Aminotransferase (ALT/SGPT) 51 Alkaline Phosphatase 129 H Troponin I < 0.012 Total Protein 8.4 H Albumin 3.6 Globulin 4.80 H Albumin/Globulin Ratio 0.75 Medications Medications Current Medications Sodium Chloride (1/2 NS) 1,000 ml @ 60 mls/hr [id number] IV Last administered on 11/18/16 01:08; Admin Dose 60 MLS/HR; Start 11/18/16 at 00:00 Acetaminophen (Tylenol Liquid) 650 mg Q6H PRN GTB MILD PAIN LEVEL 1-3; Start at 00:30 Amlodipine Besylate (Norvasc) 5 mg DAILY GTB Last administered on 11/18/16 09: 13; Admin Dose 5 MG; Start 11/18/16 at 09:00 Ascorbic Acid (Vitamin C) 500 mg DAILY GTB Last administered on 11/18/16 09:12 ; Admin Dose 500 MG; Start 11/18/16 at 09:00 Benazepril HCl (Lotensin) 40 mg DAILY GTB Last administered on 11/18/16 09:13 ; Admin Dose 40 MG; Start 11/18/16 at 09:00 Carbidopa/Levodopa (Sinemet (25/ 100)) 0.5 tab BID GTB Last administered on 09:12; Admin Dose 0.5 TAB; Start 11/18/16 at 09:00 Clonidine (Catapres) 0.1 mg Q6 PRN GTB ELEVATED BLOOD PRESSURE; Start 11/18/16 at 00:30 Eye Lubricant (Artificial Tears Oph) 2 drop QID BOTH EYES Last administered on 11/18/16 09:12; Admin Dose 2 DROP; Start 11/18/16 at 09:00 Docusate Sodium (Colace) 100 mg BID PO Last administered on 11/18/16 09:12; Admin Dose 100 MG; Start 11/18/16 at 09:00 Epoetin Tree (Epogen (Oncology)) 10,000 units We@17 SC ; Start 11/23/16 at 17:00 Ferrous Sulfate (Feosol Liquid Cup) 330 mg BID@,18 GTB Last administered on 06:30; Admin Dose 330 MG; Start 11/18/16 at 06:00 Finasteride (Proscar) 5 mg DAILY GTB Last administered on 11/18/16 09:12; Admin Dose 5 MG; Start 11/18/16 at 09:00 Gabapentin (Neurontin Liquid) 300 mg BID GTB Last administered on 11/18/16 09: 13; Admin Dose 300 MG; Start 11/18/16 at 09:00 Acetaminophen/ Hydrocodone Bitart ([place] (5/325)) Give 5/325 mg Q6HRS PRN ... Q6 PRN GTB PAIN; Start 11/18/16 at 00:30 Magnesium Oxide (Mag-Ox 400) 400 mg QHS GTB ; Start 11/18/16 at 21:00 Multivitamins (Multivitamin) 30 ml DAILY GTB Last administered on 11/18/16 09: 12; Admin Dose 30 ML; Start 11/18/16 at 09:00 Ondansetron HCl (Zofran Tab) 4 mg Q6H PRN GTB NAUSEA AND/OR VOMITING; Start at 00:30 Lansoprazole (Prevacid) 30 mg DAILY@06 GTB Last administered on 11/18/16 06:30 ; Admin Dose 30 MG; Start 11/18/16 at 06:00 Lorazepam (Ativan) 0.5 mg Q6H PRN GTB ANXIETY; Start 11/18/16 at 01:00 Miscellaneous Information (Pending [facility] Order For Wound Care) This patient suarez... PRN PRN XX WOUND CARE; Start 11/18/16 at 03:30 JAIME HAMPTON MD Nov 18, 2016 12:17
--- NOTE | 2016-11-18 16:55 | CONS ---
Date/Time of Note Date/Time of Note DATE: 11/18/16 TIME: 16:55 Consultation Date/Type/Reason Admit Date/Time Nov 17, 2016 at 20:56 Type of Consultation: ID Reason for Consultation This is Dr. Oral Gomez dictating infectious consultation on [place] [place], date of admission 11/17/2016, date of consultation and dictation 2016, reason for consultation is antibiotic management. Patient is an 81-year-old male with numerous problems who is admitted with fever and tachycardia. 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 Sorensen. #2 ventilatory dependent respiratory failure. #3 status post tracheostomy. #4 dysphagia with G-tube placement. #5 Parkinson's disease. #6 hypertension. #7 anemia of chronic disease. #8 Hobbs catheter for urinary retention. Patient presented to the emergency room from a shelter facility with fever up to 101. On admission his white count was 24.5, H&H of 9.9 and 31.2, platelet count 140,000. BUN/creatinine 41/0.79. Chest x-ray shows tracheostomy cardiomegaly and chronic interstitial changes throughout the right lung and no acute infiltrate. Urine shows 3+ leukocyte esterase and 24 white cells per high-power field, consistent with urinary tract infection. Urine is growing greater than 10 to the fifth gram-negative rods and the patient received 1 dose of ceftriaxone. MRIs of the brain cervical spine thoracic spine and lumbar spine were ordered as was a wound care consult. Past medical history as outlined Past surgical history as outlined Family history is noncontributory Social history: He does not smoke drink or abuse drugs. No known allergies On physical examination patient is an elderly appearing white male who is alert but nonverbal, in no acute distress. Vital signs are stable, she is afebrile. SHEENT within normal limits Neck: Tracheostomy in place without discharge, lymph nodes nonpalpable Chest: Decreased breath sounds at the bases Heart without murmur gallop Abdomen is soft nontender, G-tube in place Extremities without cyanosis clubbing or edema Rectal genital exams: Deferred Neurological evaluation: No focal neurological abnormalities. Impression/plan: Patient is an 81-year-old male with numerous problems who comes in now with urinary tract infection from a shelter facility. Urine culture shows gram-negative rods. We will place him on ertapenem 1 g IV piggyback every 24. I will dictate my findings to Dr. Obrien; thank you for this outboard motor tester. Psychological: no complaints Past Medical History Medical History: hypertension Social History Alcohol Use: none Smoking Status: Never smoker Drug Use: none Exam/Review of Systems Vital Signs Vitals Vital Signs Date Time Temp Pulse Resp B/P Pulse Ox O2 Delivery O2 Flow Rate FiO2 11/18/16 16:04 98.0 87 18 123/82 98 11/18/16 15:20 40 11/17/16 21:30 Mechanical Ventilator Intake and Output 11/17/16 11/17/16 11/18/16 15:00 23:00 07:00 Intake Total 575 ml Output Total 400 ml Balance 175 ml Results Result Diagram: 11/18/16 0608 11/18/16 0608 Results 24 hrs Laboratory Tests Test 11/17/16 19:45 11/17/16 21:05 11/18/16 00:54 11/18/16 06:08 White Blood Count 19.1 #H 24.5 #H Red Blood Count 4.01 #L 3.32 L Hemoglobin 11.6 #L 9.9 L Hematocrit 37.3 #L 31.2 L Mean Corpuscular Volume 93.0 94.0 Mean Corpuscular Hemoglobin 28.9 L 29.8 Mean Corpuscular Hemoglobin Concent 31.1 L 31.7 L Red Cell Distribution Width 15.8 H 15.9 H Platelet Count 254 # 140 # Mean Platelet Volume 9.9 12.0 #H Neutrophils % 80.3 H 84.9 H Lymphocytes % 12.2 L 8.8 L Monocytes % 6.0 4.7 Eosinophils % 0.9 0.7 Basophils % 0.2 0.2 Neutrophils # 15.3 H 20.8 H Lymphocytes # 2.3 2.2 Monocytes # 1.2 H 1.2 H Eosinophils # 0.2 0.2 Basophils # 0.0 0.1 Nucleated Red Blood Cells # 0.0 0.0 Prothrombin Time 13.9 Prothrombin Time Ratio 1.1 INR International Normalized Ratio 1.07 Activated Partial Thromboplast Time 36.0 H Urine Color VIR[place]IE Urine Clarity CLOUDY A Urine pH 9.0 Urine Specific [place] 1.018 Urine Ketones NEGATIVE Urine Nitrite NEGATIVE Urine Bilirubin NEGATIVE Urine Urobilinogen NEGATIVE Urine Leukocyte Esterase 3+ H Urine Microscopic RBC 9 H Urine Microscopic WBC 24 H Urine Bacteria FEW A Urine Mucus FEW A Urine Hemoglobin NEGATIVE Urine Glucose NEGATIVE Urine Total Protein 2+ H Sodium Level 141 142 Potassium Level 5.6 H 5.0 Chloride Level 100 105 Carbon Dioxide Level 30 24 Anion Gap 17 H 18 H Blood Urea Nitrogen 48 H 41 H Creatinine 1.04 0.79 Glucose Level 133 161 Lactic Acid Level 2.1 H 1.1 0.8 Calcium Level 9.2 8.6 Total Bilirubin 0.5 Direct Bilirubin 0.00 Indirect Bilirubin 0.5 Aspartate Amino Transf (AST/SGOT) 35 Alanine Aminotransferase (ALT/SGPT) 51 Alkaline Phosphatase 129 H Troponin I < 0.012 Total Protein 8.4 H Albumin 3.6 Globulin 4.80 H Albumin/Globulin Ratio 0.75 Medications Medications Current Medications Sodium Chloride (1/2 NS) 1,000 ml @ 60 mls/hr [id number] IV Last administered on 11/18/16 16:24; Admin Dose 60 MLS/HR; Start 11/18/16 at 00:00 Acetaminophen (Tylenol Liquid) 650 mg Q6H PRN GTB MILD PAIN LEVEL 1-3; Start at 00:30 Amlodipine Besylate (Norvasc) 5 mg DAILY GTB Last administered on 11/18/16 09: 13; Admin Dose 5 MG; Start 11/18/16 at 09:00 Ascorbic Acid (Vitamin C) 500 mg DAILY GTB Last administered on 11/18/16 09:12 ; Admin Dose 500 MG; Start 11/18/16 at 09:00 Benazepril HCl (Lotensin) 40 mg DAILY GTB Last administered on 11/18/16 09:13 ; Admin Dose 40 MG; Start 11/18/16 at 09:00 Carbidopa/Levodopa (Sinemet (25/ 100)) 0.5 tab BID GTB Last administered on 09:12; Admin Dose 0.5 TAB; Start 11/18/16 at 09:00 Clonidine (Catapres) 0.1 mg Q6 PRN GTB ELEVATED BLOOD PRESSURE; Start 11/18/16 at 00:30 Eye Lubricant (Artificial Tears Oph) 2 drop QID BOTH EYES Last administered on 11/18/16 09:12; Admin Dose 2 DROP; Start 11/18/16 at 09:00 Docusate Sodium (Colace) 100 mg BID PO Last administered on 11/18/16 09:12; Admin Dose 100 MG; Start 11/18/16 at 09:00 Epoetin Tree (Epogen (Oncology)) 10,000 units We@17 SC ; Start 11/23/16 at 17:00 Ferrous Sulfate (Feosol Liquid Cup) 330 mg BID@,18 GTB Last administered on 06:30; Admin Dose 330 MG; Start 11/18/16 at 06:00 Finasteride (Proscar) 5 mg DAILY GTB Last administered on 11/18/16 09:12; Admin Dose 5 MG; Start 11/18/16 at 09:00 Gabapentin (Neurontin Liquid) 300 mg BID GTB Last administered on 11/18/16 09: 13; Admin Dose 300 MG; Start 11/18/16 at 09:00 Acetaminophen/ Hydrocodone Bitart ([place] (5/325)) Give 5/325 mg Q6HRS PRN ... Q6 PRN GTB PAIN; Start 11/18/16 at 00:30 Magnesium Oxide (Mag-Ox 400) 400 mg QHS GTB ; Start 11/18/16 at 21:00 Multivitamins (Multivitamin) 30 ml DAILY GTB Last administered on 11/18/16 09: 12; Admin Dose 30 ML; Start 11/18/16 at 09:00 Ondansetron HCl (Zofran Tab) 4 mg Q6H PRN GTB NAUSEA AND/OR VOMITING; Start at 00:30 Lansoprazole (Prevacid) 30 mg DAILY@06 GTB Last administered on 11/18/16 06:30 ; Admin Dose 30 MG; Start 11/18/16 at 06:00 Lorazepam (Ativan) 0.5 mg Q6H PRN GTB ANXIETY; Start 11/18/16 at 01:00 Miscellaneous Information (Pending Santyl Order For Wound Care) This patient suarez... PRN PRN XX WOUND CARE; Start 11/18/16 at 03:30 ORAL GOMEZ MD Nov 18, 2016 16:55
--- NOTE | 2016-11-18 18:14 | CONS ---
Date/Time of Note Date/Time of Note DATE: 11/18/16 TIME: 18:08 Assessment/Plan Assessment/Plan Chief Complaint/Hosp Course Assessment 1. Vent dependent respiratory failure 2. Sepsis likely secondary to urinary tract infection 3. Quadriplegia secondary to spinal disease 4. Dysphagia with G-tube Plan 1. Continue broad-spectrum antibiotics pending cultures 2. Continue mechanical ventilation may require tracheostomy change if he has significant ongoing leak. 3. Continue tube feeding as tolerated 4. Continue DVT and GI prophylaxis 5. Consider discussing CODE STATUS with family. Problems: Consultation Date/Type/Reason Admit Date/Time Nov 17, 2016 at 20:56 Date of Consultation: Nov 18, 2016 Reason for Consultation Ventilator management Hx of Present Illness This history is from the chart. 81-year-old gentleman with cervical and thoracic spinal stenosis prior history of laminectomy no vent dependent admitted for evaluation of fever and tachycardia from alf facility. Patient found to have leukocytosis and urinary tract infection per chart. In addition he has moderate to copious secretions from tracheostomy. In addition he has mild discomfort around tracheostomy site with a small leak however still maintaining adequate tidal volumes. Patient was given fluid resuscitation started on intravenous antibiotics continues mechanical ventilation pending further culture results. Currently unable to perform Psychological: no complaints Past Medical History Quadriplegia Vent dependent respiratory failure Medical History: hypertension Past Surgical History tracheostomy G-tube C-spine surgery C-spine surgery Social History Alcohol Use: none Smoking Status: Never smoker Drug Use: none Exam/Review of Systems Vital Signs Vitals Vital Signs Date Time Temp Pulse Resp B/P Pulse Ox O2 Delivery O2 Flow Rate FiO2 11/18/16 17:15 71 18 98 40 11/18/16 16:04 98.0 123/82 11/17/16 21:30 Mechanical Ventilator Intake and Output 11/17/16 11/17/16 11/18/16 14:59 22:59 06:59 Intake Total 575 ml Output Total 400 ml Balance 175 ml Exam GENERAL: Chronically ill-appearing gentleman on mechanical ventilation comfortable at rest VITAL SIGNS: per chart NECK: Supple. No JVD or lymphadenopathy. CARDIAC EXAM: S1, S2. No added sounds or murmurs. CHEST: clear bilaterally, No added sounds, rales or wheezes ABDOMEN: Soft, nontender. No guarding or rebound. EXTREMITIES: No cyanosis, clubbing or edema. NEUROLOGIC: Unable to assess Results Chest x-ray shows chronic interstitial changes no acute infiltrate Result Diagram: 11/18/16 0608 11/18/16 0608 Results 24 hrs Laboratory Tests Test 11/17/16 19:45 11/17/16 21:05 11/18/16 00:54 11/18/16 06:08 White Blood Count 19.1 #H 24.5 #H Red Blood Count 4.01 #L 3.32 L Hemoglobin 11.6 #L 9.9 L Hematocrit 37.3 #L 31.2 L Mean Corpuscular Volume 93.0 94.0 Mean Corpuscular Hemoglobin 28.9 L 29.8 Mean Corpuscular Hemoglobin Concent 31.1 L 31.7 L Red Cell Distribution Width 15.8 H 15.9 H Platelet Count 254 # 140 # Mean Platelet Volume 9.9 12.0 #H Neutrophils % 80.3 H 84.9 H Lymphocytes % 12.2 L 8.8 L Monocytes % 6.0 4.7 Eosinophils % 0.9 0.7 Basophils % 0.2 0.2 Neutrophils # 15.3 H 20.8 H Lymphocytes # 2.3 2.2 Monocytes # 1.2 H 1.2 H Eosinophils # 0.2 0.2 Basophils # 0.0 0.1 Nucleated Red Blood Cells # 0.0 0.0 Prothrombin Time 13.9 Prothrombin Time Ratio 1.1 INR International Normalized Ratio 1.07 Activated Partial Thromboplast Time 36.0 H Urine Color [place]IE Urine Clarity CLOUDY A Urine pH 9.0 Urine Specific [place] 1.018 Urine Ketones NEGATIVE Urine Nitrite NEGATIVE Urine Bilirubin NEGATIVE Urine Urobilinogen NEGATIVE Urine Leukocyte Esterase 3+ H Urine Microscopic RBC 9 H Urine Microscopic WBC 24 H Urine Bacteria FEW A Urine Mucus FEW A Urine Hemoglobin NEGATIVE Urine Glucose NEGATIVE Urine Total Protein 2+ H Sodium Level 141 142 Potassium Level 5.6 H 5.0 Chloride Level 100 105 Carbon Dioxide Level 30 24 Anion Gap 17 H 18 H Blood Urea Nitrogen 48 H 41 H Creatinine 1.04 0.79 Glucose Level 133 161 Lactic Acid Level 2.1 H 1.1 0.8 Calcium Level 9.2 8.6 Total Bilirubin 0.5 Direct Bilirubin 0.00 Indirect Bilirubin 0.5 Aspartate Amino Transf (AST/SGOT) 35 Alanine Aminotransferase (ALT/SGPT) 51 Alkaline Phosphatase 129 H Troponin I < 0.012 Total Protein 8.4 H Albumin 3.6 Globulin 4.80 H Albumin/Globulin Ratio 0.75 Medications Medications Current Medications Sodium Chloride (1/2 NS) 1,000 ml @ 60 mls/hr [id number] IV Last administered on 11/18/16 16:24; Admin Dose 60 MLS/HR; Start 11/18/16 at 00:00 Acetaminophen (Tylenol Liquid) 650 mg Q6H PRN GTB MILD PAIN LEVEL 1-3; Start at 00:30 Amlodipine Besylate (Norvasc) 5 mg DAILY GTB Last administered on 11/18/16 09: 13; Admin Dose 5 MG; Start 11/18/16 at 09:00 Ascorbic Acid (Vitamin C) 500 mg DAILY GTB Last administered on 11/18/16 09:12 ; Admin Dose 500 MG; Start 11/18/16 at 09:00 Benazepril HCl (Lotensin) 40 mg DAILY GTB Last administered on 11/18/16 09:13 ; Admin Dose 40 MG; Start 11/18/16 at 09:00 Carbidopa/Levodopa (Sinemet (25/ 100)) 0.5 tab BID GTB Last administered on 09:12; Admin Dose 0.5 TAB; Start 11/18/16 at 09:00 Clonidine (Catapres) 0.1 mg Q6 PRN GTB ELEVATED BLOOD PRESSURE; Start 11/18/16 at 00:30 Eye Lubricant (Artificial Tears Oph) 2 drop QID BOTH EYES Last administered on 11/18/16 09:12; Admin Dose 2 DROP; Start 11/18/16 at 09:00 Docusate Sodium (Colace) 100 mg BID PO Last administered on 11/18/16 09:12; Admin Dose 100 MG; Start 11/18/16 at 09:00 Epoetin Tree (Epogen (Oncology)) 10,000 units We@17 SC ; Start 11/23/16 at 17:00 Ferrous Sulfate (Feosol Liquid Cup) 330 mg BID@,18 GTB Last administered on 06:30; Admin Dose 330 MG; Start 11/18/16 at 06:00 Finasteride (Proscar) 5 mg DAILY GTB Last administered on 11/18/16 09:12; Admin Dose 5 MG; Start 11/18/16 at 09:00 Gabapentin (Neurontin Liquid) 300 mg BID GTB Last administered on 11/18/16 09: 13; Admin Dose 300 MG; Start 11/18/16 at 09:00 Acetaminophen/ Hydrocodone Bitart ([place] (5/325)) Give 5/325 mg Q6HRS PRN ... Q6 PRN GTB PAIN; Start 11/18/16 at 00:30 Magnesium Oxide (Mag-Ox 400) 400 mg QHS GTB ; Start 11/18/16 at 21:00 Multivitamins (Multivitamin) 30 ml DAILY GTB Last administered on 11/18/16 09: 12; Admin Dose 30 ML; Start 11/18/16 at 09:00 Ondansetron HCl (Zofran Tab) 4 mg Q6H PRN GTB NAUSEA AND/OR VOMITING; Start at 00:30 Lansoprazole (Prevacid) 30 mg DAILY@06 GTB Last administered on 11/18/16 06:30 ; Admin Dose 30 MG; Start 11/18/16 at 06:00 Lorazepam (Ativan) 0.5 mg Q6H PRN GTB ANXIETY; Start 11/18/16 at 01:00 Miscellaneous Information This patient suarez... PRN PRN XX WOUND CARE; Start 11/18 at 03:30 Ertapenem/Sodium Chloride (Invanz/NS) 100 ml @ 200 mls/hr Q24H IVPB ; Start at 18:00 INDER LONDON [facility], [facility] Nov 18, 2016 18:14
[2016-11-18] MEDS: ERTAPENEM SODIUM 1 GM in SOD CHLORIDE 0.9% 100 ML IVPB SCH (18:26)
[2016-11-18] MEDS: MAGNESIUM OXIDE 400 MG TAB GTB SCH (20:53)
[2016-11-18] MEDS: LORAZEPAM 0.5 MG TAB GTB PRN (23:21)
[2016-11-19] VITALS (24 sets, daily range): BP systolic 116–134; BP diastolic 56–78; PULSE 57–73; RESP 16–24
[2016-11-19] MEDS: ALBUTEROL 18 GM INHALER INH SCH ×4 (00:31→20:48)
[2016-11-19] MEDS: IPRATROPIUM (HFA) 12.9 GM INHALER INH SCH ×4 (00:31→20:48)
[2016-11-19] MEDS ORDERED: VANCOMYCIN IV PER PHARMACY XX SCH (05:00)
[2016-11-19] MEDS: LANSOPRAZOLE 30 MG CAP GTB SCH (05:47)
[2016-11-19] MEDS: metroNIDAZOLE 500 MG/NS (PMX) 100 ML IVPB SCH ×3 (05:47→22:07)
[2016-11-19] MEDS: FERROUS SULFATE 60 MG/ML 5ML CUP GTB SCH ×2 (05:47→17:25)
[2016-11-19] MEDS ORDERED: VANCOMYCIN 1.25 GM in SOD CHLORIDE 0.9% 250 ML IVPB ONE (07:30)
[2016-11-19 07:33] LABS: BASOPHILS % 0.1 % (0.0-2.0); EOSINOPHILS # 0.5 10^3/ul (0.0-0.5); EOSINOPHILS % 4.6 % (0.0-7.0); HEMATOCRIT 27.8 % (42.0-52.0); HEMOGLOBIN 8.8 g/dl (14.0-18.0); LYMPHOCYTES # 1.7 10^3/ul (0.8-2.9); LYMPHOCYTES % 16.6 % (15.0-51.0); MEAN CORPUSCULAR HEMOGLOBIN 29.3 pg (29.0-33.0); MEAN CORPUSCULAR HGB CONC 31.7 g/dl (32.0-37.0); MEAN CORPUSCULAR VOLUME 92.7 fl (82.0-101.0); MEAN PLATELET VOLUME 10.9 fl (7.4-10.4); MONOCYTE # 0.9 10^3/ul (0.3-0.9); MONOCYTES % 8.3 % (0.0-11.0); NEUTROPHIL # 7.2 10^3/ul (1.6-7.5); NEUTROPHILS % 69.9 % (39.0-77.0); PLATELET COUNT 196 10^3/UL (140-415); RED CELL DISTRIBUTION WIDTH 15.4 % (11.5-14.5); WHITE BLOOD COUNT 10.3 10^3/ul (4.8-10.8)
[2016-11-19 08:04] LABS: CREATININE 0.75 mg/dl (0.61-1.24); POTASSIUM 4.7 mmol/L (3.5-5.1)
[2016-11-19] MEDS: ARTIFICIAL TEARS 15 ML OPH BOTH EYES SCH ×4 (08:28→20:23)
[2016-11-19] MEDS: MULTIVITAMINS 30 ML CUP GTB SCH (08:29)
[2016-11-19] MEDS: GABAPENTIN (50 MG/ML PO SYG) GTB SCH ×2 (08:29→20:23)
[2016-11-19] MEDS: BENAZEPRIL 40 MG TAB GTB SCH (08:29)
[2016-11-19] MEDS: CARBIDOPA/LEVODOPA (25/100) TAB GTB SCH ×2 (08:30→20:23)
[2016-11-19] MEDS: ASCORBIC ACID 500 MG TAB GTB SCH (08:30)
[2016-11-19] MEDS: AMLODIPINE 5 MG TAB GTB SCH (08:30)
[2016-11-19] MEDS: FINASTERIDE 5 MG TAB GTB SCH (08:30)
[2016-11-19] MEDS: DOCUSATE SODIUM 100 MG CAP PO SCH ×2 (08:30→20:23)
[2016-11-19] MEDS: SOD CHLORIDE 0.45% 1,000 ML IV SCH (08:31)
[2016-11-19 09:30] LABS: AADO2 Arterial 83.9 mmHg (7.0-24.0); Allen Test ACCEPTAB; Arterial Base Excess 0.2 mmol/L (-3.0-3); Arterial COHb 0.2 % (0.0-3.0); Arterial Fraction of Oxyhgb 98.2 % (93.0-99.0); Arterial MetHb 0.4 % (0.0-1.5); Arterial Total Hemglobin 10.6 g/dl (12.0-18.0); MODE VENT - AC
--- NOTE | 2016-11-19 11:31 | CONS ---
Date/Time of Note Date/Time of Note DATE: 11/19/16 TIME: 11:28 Assessment/Plan Assessment/Plan Additional Assessment/Plan Ventilator setting; AC of 12, tidal volume 500, PEEP of 5, 40% FiO2. Assessment recommendations; 1. admitted for sepsis from UTI with gram-negative rods as well as gram- negative bacteremia. Currently on appropriate broad-spectrum antibiotic coverage. 2. Chronic respiratory failure, status post tracheostomy patient remains ventilator dependent. 3. Advanced dementia. Continue current treatment. Consultation Date/Type/Reason Admit Date/Time Nov 17, 2016 at 20:56 Initial Consult Date 11/18/16 Type of Consultation: Pulmonary Referring Provider: MARCO DOE 24 HR Interval Summary Free Text/Dictation Patient condition remains stable remains unresponsive though. Remains ventilator dependent via tracheostomy. Has remained hemodynamically stable. General exam; elderly male, on ventilator via tracheostomy unresponsive, currently in no distress. Exam/Review of Systems Vital Signs Vitals Vital Signs Date Time Temp Pulse Resp B/P Pulse Ox O2 Delivery O2 Flow Rate FiO2 11/19/16 10:54 98.4 78 18 116/65 97 11/19/16 08:44 40 11/17/16 21:30 Mechanical Ventilator Intake and Output 11/18/16 11/18/16 11/19/16 15:00 23:00 07:00 Intake Total 2170 ml 1700 ml Output Total 650 ml 1000 ml Balance 1520 ml 700 ml Exam HEENT exam; supple neck, no JVD. No lymphadenopathy. Midline trachea. No thyromegaly. Tracheostomy in place. Insertion site is clean. Patient has multiple carious teeth. Chest exam; diminished but clear breath sound. S1-S2 audible, no murmurs. Regular rhythm. Abdomen exam; soft, no organomegaly. G-tube in place. Bowel sounds audible. Extremity exam; no peripheral edema. [employer] exam; patient remains unresponsive. Results Result Diagram: 11/19/16 0642 11/19/16 0642 Results 24 hrs Laboratory Tests Test 11/19/16 06:42 11/19/16 07:00 White Blood Count 10.3 # Red Blood Count 3.00 L Hemoglobin 8.8 L Hematocrit 27.8 L Mean Corpuscular Volume 92.7 Mean Corpuscular Hemoglobin 29.3 Mean Corpuscular Hemoglobin Concent 31.7 L Red Cell Distribution Width 15.4 H Platelet Count 196 # Mean Platelet Volume 10.9 H Neutrophils % 69.9 Lymphocytes % 16.6 Monocytes % 8.3 Eosinophils % 4.6 Basophils % 0.1 Nucleated Red Blood Cells % 0.0 Neutrophils # 7.2 Lymphocytes # 1.7 Monocytes # 0.9 Eosinophils # 0.5 Basophils # 0.0 Nucleated Red Blood Cells # 0.0 Sodium Level 138 Potassium Level 4.7 Chloride Level 105 Carbon Dioxide Level 24 Anion Gap 14 Blood Urea Nitrogen 34 H Creatinine 0.75 Glucose Level 128 Calcium Level 8.0 L Blood Gas Specimen Source Blood arterial Arterial Blood Date Drawn 11/19/2016 9:20:10 AM Arterial Blood pH (Temp corrected) 7.446 Arterial Blood pCO2 (Temp correct) 35.7 Arterial Blood pO2 (Temp corrected) 160.2 H Arterial Blood HCO3 24.0 Arterial Blood Base Excess 0.2 Arterial Blood Oxygen Saturation 98.8 Sha Test ACCEPTAB Arterial Blood Gas Puncture Site Right Radial Arterial Blood Carboxyhemoglobin 0.2 Arterial Blood Methemoglobin 0.4 Blood Gas A-a O2 Differential 83.9 H Oxyhemoglobin Percent 98.2 Total Hemoglobin 10.6 L Blood Gas Temperature 37.0 Blood Gas Respiration Rate 12.0 Blood Gas Actual Respiration Rate 18 Blood Gas Modality VENT - AC FiO2 40.0 Blood Gas Tidal Volume 500.0 Blood Gas High PEEP Setting 5.0 Blood Gas Notified Whom TM Blood Gas Notified Time 11/19/2016 9:29:51 AM Medications Medications Current Medications Sodium Chloride (1/2 NS) 1,000 ml @ 60 mls/hr [id number] IV Last administered on 11/19/16 08:31; Admin Dose 60 MLS/HR; Start 11/18/16 at 00:00 Acetaminophen (Tylenol Liquid) 650 mg Q6H PRN GTB MILD PAIN LEVEL 1-3; Start at 00:30 Amlodipine Besylate (Norvasc) 5 mg DAILY GTB Last administered on 11/19/16 08: 30; Admin Dose 5 MG; Start 11/18/16 at 09:00 Ascorbic Acid (Vitamin C) 500 mg DAILY GTB Last administered on 11/19/16 08:30 ; Admin Dose 500 MG; Start 11/18/16 at 09:00 Benazepril HCl (Lotensin) 40 mg DAILY GTB Last administered on 11/19/16 08:29 ; Admin Dose 40 MG; Start 11/18/16 at 09:00 Carbidopa/Levodopa (Sinemet (25/ 100)) 0.5 tab BID GTB Last administered on 08:30; Admin Dose 0.5 TAB; Start 11/18/16 at 09:00 Clonidine (Catapres) 0.1 mg Q6 PRN GTB ELEVATED BLOOD PRESSURE; Start 11/18/16 at 00:30 Eye Lubricant (Artificial Tears Oph) 2 drop QID BOTH EYES Last administered on 11/19/16 08:28; Admin Dose 2 DROP; Start 11/18/16 at 09:00 Docusate Sodium (Colace) 100 mg BID PO Last administered on 11/19/16 08:30; Admin Dose 100 MG; Start 11/18/16 at 09:00 Epoetin Tree (Epogen (Oncology)) 10,000 units We@17 SC ; Start 11/23/16 at 17:00 Ferrous Sulfate (Feosol Liquid Cup) 330 mg BID@,18 GTB Last administered on 05:47; Admin Dose 330 MG; Start 11/18/16 at 06:00 Finasteride (Proscar) 5 mg DAILY GTB Last administered on 11/19/16 08:30; Admin Dose 5 MG; Start 11/18/16 at 09:00 Gabapentin (Neurontin Liquid) 300 mg BID GTB Last administered on 11/19/16 08: 29; Admin Dose 300 MG; Start 11/18/16 at 09:00 Acetaminophen/ Hydrocodone Bitart ([place] (5/325)) Give 5/325 mg Q6HRS PRN ... Q6 PRN GTB PAIN Last administered on 11/19/16 02:58; Admin Dose 1 TAB; Start 11/18/16 at 00:30 Magnesium Oxide (Mag-Ox 400) 400 mg QHS GTB Last administered on 11/18/16 20: 53; Admin Dose 400 MG; Start 11/18/16 at 21:00 Multivitamins (Multivitamin) 30 ml DAILY GTB Last administered on 11/19/16 08: 29; Admin Dose 30 ML; Start 11/18/16 at 09:00 Ondansetron HCl (Zofran Tab) 4 mg Q6H PRN GTB NAUSEA AND/OR VOMITING; Start at 00:30 Lansoprazole (Prevacid) 30 mg DAILY@06 GTB Last administered on 11/19/16 05:47 ; Admin Dose 30 MG; Start 11/18/16 at 06:00 Lorazepam (Ativan) 0.5 mg Q6H PRN GTB ANXIETY Last administered on 11/18/16 23 :21; Admin Dose 0.5 MG; Start 11/18/16 at 01:00 Miscellaneous Information This patient suarez... PRN PRN XX WOUND CARE; Start 11/18 at 03:30 Ertapenem 1 gm/ Sodium Chloride 100 ml @ 200 mls/hr Q24H IVPB Last administered on 11/18/16 18:26; Admin Dose 200 MLS/HR; Start 11/18/16 at 18:00 Metronidazole 100 ml @ 100 mls/hr Q8 IVPB Last administered on 11/19/16 05:47 ; Admin Dose 100 MLS/HR; Start 11/19/16 at 06:00 Vancomycin HCl (Vancocin) 250 ml @ 125 mls/hr Q24H IVPB ; Start 11/20/16 at 07: 30 KARLI RILEY Nov 19, 2016 11:31
--- NOTE | 2016-11-19 14:47 | CONS ---
Date/Time of Note Date/Time of Note DATE: 11/19/16 TIME: 14:46 Assessment/Plan Assessment/Plan Chief Complaint/Hosp Course No acute changes patient is lying comfortably in bed he is afebrile Temperature 98.4 pulse 78 respirations 18 blood pressure 116/65 saturation 97 on FiO2 of 40 WBC 10.3 H&H 8.8 and 27.8 platelets 196 neutrophils 69.9 BN 34 creatinine 0.75 Microbiology: Urine culture growing Proteus mirabilis susceptible to cefotaxime gentamicin and tobramycin, blood culture growing gram-positive cocci Diagnostics: Chest x-ray on admission revealed no acute infiltrates Indwelling's trach back Hobbs Antimicrobials: Flagyl Vanco Invanz Physical examination: Chronically ill-appearing elderly man in no distress. Head atraumatic normocephalic sclera nonicteric. Bugle mucosa dry. Neck is supple, tracheostomy present. Chest rise symmetrical breath sounds diminished basis. Heart S1-S2 abdomen soft bowel tones present extremities without cyanosis Assessment 1. Sepsis 2. Multidrug-resistant Proteus mirabilis UTI 3. Bacteremia 4. Chronic respiratory failure 5. Quadriparesis, status post cervical surgery 6. Parkinson's dementia Plan: Remains stable, followed by multiple consultants, will order repeat blood cultures, continue on current antibiotics for now Problems: Consultation Date/Type/Reason Admit Date/Time Nov 17, 2016 at 20:56 Initial Consult Date 11/18/16 Type of Consultation: ID Referring Provider: MARCO DOE Exam/Review of Systems Vital Signs Vitals Vital Signs Date Time Temp Pulse Resp B/P Pulse Ox O2 Delivery O2 Flow Rate FiO2 11/19/16 12:39 64 11/19/16 10:54 98.4 18 116/65 97 11/19/16 08:44 40 11/17/16 21:30 Mechanical Ventilator Intake and Output 11/18/16 11/18/16 11/19/16 15:00 23:00 07:00 Intake Total 2170 ml 1700 ml Output Total 650 ml 1000 ml Balance 1520 ml 700 ml Results Result Diagram: 11/19/16 0642 11/19/16 0642 Results 24 hrs Laboratory Tests Test 11/19/16 06:42 11/19/16 07:00 White Blood Count 10.3 # Red Blood Count 3.00 L Hemoglobin 8.8 L Hematocrit 27.8 L Mean Corpuscular Volume 92.7 Mean Corpuscular Hemoglobin 29.3 Mean Corpuscular Hemoglobin Concent 31.7 L Red Cell Distribution Width 15.4 H Platelet Count 196 # Mean Platelet Volume 10.9 H Neutrophils % 69.9 Lymphocytes % 16.6 Monocytes % 8.3 Eosinophils % 4.6 Basophils % 0.1 Nucleated Red Blood Cells % 0.0 Neutrophils # 7.2 Lymphocytes # 1.7 Monocytes # 0.9 Eosinophils # 0.5 Basophils # 0.0 Nucleated Red Blood Cells # 0.0 Sodium Level 138 Potassium Level 4.7 Chloride Level 105 Carbon Dioxide Level 24 Anion Gap 14 Blood Urea Nitrogen 34 H Creatinine 0.75 Glucose Level 128 Calcium Level 8.0 L Blood Gas Specimen Source Blood arterial Arterial Blood Date Drawn 11/19/2016 9:20:10 AM Arterial Blood pH (Temp corrected) 7.446 Arterial Blood pCO2 (Temp correct) 35.7 Arterial Blood pO2 (Temp corrected) 160.2 H Arterial Blood HCO3 24.0 Arterial Blood Base Excess 0.2 Arterial Blood Oxygen Saturation 98.8 Sha Test ACCEPTAB Arterial Blood Gas Puncture Site Right Radial Arterial Blood Carboxyhemoglobin 0.2 Arterial Blood Methemoglobin 0.4 Blood Gas A-a O2 Differential 83.9 H Oxyhemoglobin Percent 98.2 Total Hemoglobin 10.6 L Blood Gas Temperature 37.0 Blood Gas Respiration Rate 12.0 Blood Gas Actual Respiration Rate 18 Blood Gas Modality VENT - AC FiO2 40.0 Blood Gas Tidal Volume 500.0 Blood Gas High PEEP Setting 5.0 Blood Gas Notified Whom TM Blood Gas Notified Time 11/19/2016 9:29:51 AM Medications Medications Current Medications Sodium Chloride (1/2 NS) 1,000 ml @ 60 mls/hr [id number] IV Last administered on 11/19/16 08:31; Admin Dose 60 MLS/HR; Start 11/18/16 at 00:00 Acetaminophen (Tylenol Liquid) 650 mg Q6H PRN GTB MILD PAIN LEVEL 1-3; Start at 00:30 Amlodipine Besylate (Norvasc) 5 mg DAILY GTB Last administered on 11/19/16 08: 30; Admin Dose 5 MG; Start 11/18/16 at 09:00 Ascorbic Acid (Vitamin C) 500 mg DAILY GTB Last administered on 11/19/16 08:30 ; Admin Dose 500 MG; Start 11/18/16 at 09:00 Benazepril HCl (Lotensin) 40 mg DAILY GTB Last administered on 11/19/16 08:29 ; Admin Dose 40 MG; Start 11/18/16 at 09:00 Carbidopa/Levodopa (Sinemet (25/ 100)) 0.5 tab BID GTB Last administered on 08:30; Admin Dose 0.5 TAB; Start 11/18/16 at 09:00 Clonidine (Catapres) 0.1 mg Q6 PRN GTB ELEVATED BLOOD PRESSURE; Start 11/18/16 at 00:30 Eye Lubricant (Artificial Tears Oph) 2 drop QID BOTH EYES Last administered on 11/19/16 13:21; Admin Dose 2 DROP; Start 11/18/16 at 09:00 Docusate Sodium (Colace) 100 mg BID PO Last administered on 11/19/16 08:30; Admin Dose 100 MG; Start 11/18/16 at 09:00 Epoetin Tree (Epogen (Oncology)) 10,000 units We@17 SC ; Start 11/23/16 at 17:00 Ferrous Sulfate (Feosol Liquid Cup) 330 mg BID@06,18 GTB Last administered on 05:47; Admin Dose 330 MG; Start 11/18/16 at 06:00 Finasteride (Proscar) 5 mg DAILY GTB Last administered on 11/19/16 08:30; Admin Dose 5 MG; Start 11/18/16 at 09:00 Gabapentin (Neurontin Liquid) 300 mg BID GTB Last administered on 11/19/16 08: 29; Admin Dose 300 MG; Start 11/18/16 at 09:00 Acetaminophen/ Hydrocodone Bitart ([place] (5/325)) Give 5/325 mg Q6HRS PRN ... Q6 PRN GTB PAIN Last administered on 11/19/16 02:58; Admin Dose 1 TAB; Start 11/18/16 at 00:30 Magnesium Oxide (Mag-Ox 400) 400 mg QHS GTB Last administered on 11/18/16 20: 53; Admin Dose 400 MG; Start 11/18/16 at 21:00 Multivitamins (Multivitamin) 30 ml DAILY GTB Last administered on 11/19/16 08: 29; Admin Dose 30 ML; Start 11/18/16 at 09:00 Ondansetron HCl (Zofran Tab) 4 mg Q6H PRN GTB NAUSEA AND/OR VOMITING; Start at 00:30 Lansoprazole (Prevacid) 30 mg DAILY@06 GTB Last administered on 11/19/16 05:47 ; Admin Dose 30 MG; Start 11/18/16 at 06:00 Lorazepam (Ativan) 0.5 mg Q6H PRN GTB ANXIETY Last administered on 11/18/16 23 :21; Admin Dose 0.5 MG; Start 11/18/16 at 01:00 Miscellaneous Information This patient suarez... PRN PRN XX WOUND CARE; Start 11/18 at 03:30 Ertapenem 1 gm/ Sodium Chloride 100 ml @ 200 mls/hr Q24H IVPB Last administered on 11/18/16 18:26; Admin Dose 200 MLS/HR; Start 11/18/16 at 18:00 Metronidazole 100 ml @ 100 mls/hr Q8 IVPB Last administered on 11/19/16 13:21 ; Admin Dose 100 MLS/HR; Start 11/19/16 at 06:00 Vancomycin HCl (Vancocin) 250 ml @ 125 mls/hr Q24H IVPB ; Start 11/20/16 at 07: 30 MARI GOODE NP Nov 19, 2016 14:46
--- NOTE | 2016-11-19 15:02 | PN ---
Date/Time of Note Date/Time of Note DATE: 11/19/16 TIME: 15:00 Assessment/Plan VTE Prophylaxis VTE Prophylaxis Intervention: other Lines/Catheters IV [facility] Urinary Cath still in place: Yes Reason Cath still needed: urinary retention Assessment/Plan Assessment/Plan - Sepsis, continue IV fluids, telemetry monitoring, antibiotics. Dr. Shine is asked to see patient in ID consultation. - Acute cystitis - Possible tracheobronchitis - Hyperkalemia, improved after treatment. - Status post cervical laminectomy for cervical and upper thoracic stenosis - History of cystic mass - Ventilator dependent respiratory failure with tracheostomy,Dr. Rivera is following patient in pulmonology consultation. Dr. Cho is asked to see patient in ENT consultation. - Left lower extremity weakness, Dr. Caballero is asked to see patient in neurology consultation. - Dysphagia with G-tube. - Parkinson's disease - Hypertension Further recommendations based on clinical course. Plan of care discussed with Dr. Manriquez. Subjective 24 Hr Interval Summary Free Text/Dictation afebrile, vss, tolerating GT feeding, MRI brain ending. dw staff Constitutional: requiring IVF, requiring O2 Exam/Review of Systems Vital Signs Vitals Vital Signs Date Time Temp Pulse Resp B/P Pulse Ox O2 Delivery O2 Flow Rate FiO2 11/19/16 12:39 64 11/19/16 10:54 98.4 18 116/65 97 11/19/16 08:44 40 11/17/16 21:30 Mechanical Ventilator Intake and Output 11/18/16 11/18/16 11/19/16 15:00 23:00 07:00 Intake Total 2170 ml 1700 ml Output Total 650 ml 1000 ml Balance 1520 ml 700 ml Exam Constitutional: alert, well developed ENMT: nl external ears & nose Neck: other (trach intact) Respiratory: clear to auscultation, diminished breath sounds Cardiovascular: nl pulses, regular rate and rhythm Gastrointestinal: non-tender, other, soft Musculoskeletal: muscle weakness Extremities: normal pulses Neurological: confused Results Result Diagram: 11/19/16 0642 11/19/16 0642 Results 24 hrs Laboratory Tests Test 11/19/16 06:42 11/19/16 07:00 White Blood Count 10.3 # Red Blood Count 3.00 L Hemoglobin 8.8 L Hematocrit 27.8 L Mean Corpuscular Volume 92.7 Mean Corpuscular Hemoglobin 29.3 Mean Corpuscular Hemoglobin Concent 31.7 L Red Cell Distribution Width 15.4 H Platelet Count 196 # Mean Platelet Volume 10.9 H Neutrophils % 69.9 Lymphocytes % 16.6 Monocytes % 8.3 Eosinophils % 4.6 Basophils % 0.1 Nucleated Red Blood Cells % 0.0 Neutrophils # 7.2 Lymphocytes # 1.7 Monocytes # 0.9 Eosinophils # 0.5 Basophils # 0.0 Nucleated Red Blood Cells # 0.0 Sodium Level 138 Potassium Level 4.7 Chloride Level 105 Carbon Dioxide Level 24 Anion Gap 14 Blood Urea Nitrogen 34 H Creatinine 0.75 Glucose Level 128 Calcium Level 8.0 L Blood Gas Specimen Source Blood arterial Arterial Blood Date Drawn 11/19/2016 9:20:10 AM Arterial Blood pH (Temp corrected) 7.446 Arterial Blood pCO2 (Temp correct) 35.7 Arterial Blood pO2 (Temp corrected) 160.2 H Arterial Blood HCO3 24.0 Arterial Blood Base Excess 0.2 Arterial Blood Oxygen Saturation 98.8 Sha Test ACCEPTAB Arterial Blood Gas Puncture Site Right Radial Arterial Blood Carboxyhemoglobin 0.2 Arterial Blood Methemoglobin 0.4 Blood Gas A-a O2 Differential 83.9 H Oxyhemoglobin Percent 98.2 Total Hemoglobin 10.6 L Blood Gas Temperature 37.0 Blood Gas Respiration Rate 12.0 Blood Gas Actual Respiration Rate 18 Blood Gas Modality VENT - AC FiO2 40.0 Blood Gas Tidal Volume 500.0 Blood Gas High PEEP Setting 5.0 Blood Gas Notified Whom TM Blood Gas Notified Time 11/19/2016 9:29:51 AM Medications Medications Current Medications Sodium Chloride (1/2 NS) 1,000 ml @ 60 mls/hr [id number] IV Last administered on 11/19/16 08:31; Admin Dose 60 MLS/HR; Start 11/18/16 at 00:00 Acetaminophen (Tylenol Liquid) 650 mg Q6H PRN GTB MILD PAIN LEVEL 1-3; Start at 00:30 Amlodipine Besylate (Norvasc) 5 mg DAILY GTB Last administered on 11/19/16 08: 30; Admin Dose 5 MG; Start 11/18/16 at 09:00 Ascorbic Acid (Vitamin C) 500 mg DAILY GTB Last administered on 11/19/16 08:30 ; Admin Dose 500 MG; Start 11/18/16 at 09:00 Benazepril HCl (Lotensin) 40 mg DAILY GTB Last administered on 11/19/16 08:29 ; Admin Dose 40 MG; Start 11/18/16 at 09:00 Carbidopa/Levodopa (Sinemet (25/ 100)) 0.5 tab BID GTB Last administered on 08:30; Admin Dose 0.5 TAB; Start 11/18/16 at 09:00 Clonidine (Catapres) 0.1 mg Q6 PRN GTB ELEVATED BLOOD PRESSURE; Start 11/18/16 at 00:30 Eye Lubricant (Artificial Tears Oph) 2 drop QID BOTH EYES Last administered on 11/19/16 13:21; Admin Dose 2 DROP; Start 11/18/16 at 09:00 Docusate Sodium (Colace) 100 mg BID PO Last administered on 11/19/16 08:30; Admin Dose 100 MG; Start 11/18/16 at 09:00 Epoetin Tree (Epogen (Oncology)) 10,000 units We@17 SC ; Start 11/23/16 at 17:00 Ferrous Sulfate (Feosol Liquid Cup) 330 mg BID@06,18 GTB Last administered on 05:47; Admin Dose 330 MG; Start 11/18/16 at 06:00 Finasteride (Proscar) 5 mg DAILY GTB Last administered on 11/19/16 08:30; Admin Dose 5 MG; Start 11/18/16 at 09:00 Gabapentin (Neurontin Liquid) 300 mg BID GTB Last administered on 11/19/16 08: 29; Admin Dose 300 MG; Start 11/18/16 at 09:00 Acetaminophen/ Hydrocodone Bitart ([place] (5/325)) Give 5/325 mg Q6HRS PRN ... Q6 PRN GTB PAIN Last administered on 11/19/16 02:58; Admin Dose 1 TAB; Start 11/18/16 at 00:30 Magnesium Oxide (Mag-Ox 400) 400 mg QHS GTB Last administered on 11/18/16 20: 53; Admin Dose 400 MG; Start 11/18/16 at 21:00 Multivitamins (Multivitamin) 30 ml DAILY GTB Last administered on 11/19/16 08: 29; Admin Dose 30 ML; Start 11/18/16 at 09:00 Ondansetron HCl (Zofran Tab) 4 mg Q6H PRN GTB NAUSEA AND/OR VOMITING; Start at 00:30 Lansoprazole (Prevacid) 30 mg DAILY@06 GTB Last administered on 11/19/16 05:47 ; Admin Dose 30 MG; Start 11/18/16 at 06:00 Lorazepam (Ativan) 0.5 mg Q6H PRN GTB ANXIETY Last administered on 11/18/16 23 :21; Admin Dose 0.5 MG; Start 11/18/16 at 01:00 Miscellaneous Information This patient suarez... PRN PRN XX WOUND CARE; Start 11/18 at 03:30 Ertapenem 1 gm/ Sodium Chloride 100 ml @ 200 mls/hr Q24H IVPB Last administered on 11/18/16 18:26; Admin Dose 200 MLS/HR; Start 11/18/16 at 18:00 Metronidazole 100 ml @ 100 mls/hr Q8 IVPB Last administered on 11/19/16 13:21 ; Admin Dose 100 MLS/HR; Start 11/19/16 at 06:00 Vancomycin HCl (Vancocin) 250 ml @ 125 mls/hr Q24H IVPB ; Start 11/20/16 at 07: 30 GEOVANNY HARRIS Nov 19, 2016 15:02
[2016-11-19] MEDS: ERTAPENEM SODIUM 1 GM in SOD CHLORIDE 0.9% 100 ML IVPB SCH (17:26)
--- NOTE | 2016-11-19 18:40 | RADRPT ---
PROCEDURE: XR Chest. CLINICAL INDICATION: Shortness of breath. TECHNIQUE: Single frontal view. COMPARISON: 11/17/2016. FINDINGS: The tracheostomy tube is in satisfactory position. There is mild left basilar atelectasis, new when compared with prior study. Mild interstitial disease in the right lung is unchanged. The lungs ar e otherwise clear. The heart size is normal. There is calcification in the aorta consistent with atherosclerosis. There is no pleural effusion. There is no pneumothorax. There has been prior spine surgery with a plate and screws in the cervical spine and multiple screws and connecting rods in the lower thoracic spine. IMPRESSION: 1. Worse appearance of the left lung base. 2. No other change from 11/17/2016. RPTAT: QQ .Андрей Damon MD, Date Time Electronically viewed and signed by .Андрей Damon MD, MD on 11/19/2016 18:40 .R/
[2016-11-19] MEDS: MAGNESIUM OXIDE 400 MG TAB GTB SCH (20:23)
[2016-11-20] VITALS (24 sets, daily range): BP systolic 98–140; BP diastolic 60–81; PULSE 53–67; RESP 12–20
[2016-11-20] MEDS: ALBUTEROL 18 GM INHALER INH SCH ×4 (01:43→20:30)
[2016-11-20] MEDS: IPRATROPIUM (HFA) 12.9 GM INHALER INH SCH ×4 (01:43→20:30)
[2016-11-20] MEDS: SOD CHLORIDE 0.45% 1,000 ML IV SCH ×3 (02:00→17:59)
[2016-11-20] MEDS: LANSOPRAZOLE 30 MG CAP GTB SCH (06:09)
[2016-11-20] MEDS: FERROUS SULFATE 60 MG/ML 5ML CUP GTB SCH ×2 (06:09→17:16)
[2016-11-20] MEDS: metroNIDAZOLE 500 MG/NS (PMX) 100 ML IVPB SCH ×3 (06:09→21:29)
[2016-11-20 07:05] LABS: BASOPHILS % 0.2 % (0.0-2.0); EOSINOPHILS # 0.4 10^3/ul (0.0-0.5); EOSINOPHILS % 7.8 % (0.0-7.0); HEMATOCRIT 28.4 % (42.0-52.0); LYMPHOCYTES # 1.3 10^3/ul (0.8-2.9); LYMPHOCYTES % 25.7 % (15.0-51.0); MEAN CORPUSCULAR HEMOGLOBIN 29.2 pg (29.0-33.0); MEAN CORPUSCULAR HGB CONC 31.7 g/dl (32.0-37.0); MEAN CORPUSCULAR VOLUME 92.2 fl (82.0-101.0); MEAN PLATELET VOLUME 10.5 fl (7.4-10.4); MONOCYTE # 0.7 10^3/ul (0.3-0.9); MONOCYTES % 13.1 % (0.0-11.0); NEUTROPHIL # 2.7 10^3/ul (1.6-7.5); PLATELET COUNT 195 10^3/UL (140-415); RED BLOOD COUNT 3.08 10^6/ul (4.70-6.10); RED CELL DISTRIBUTION WIDTH 15.3 % (11.5-14.5)
[2016-11-20 07:30] LABS: CALCIUM 7.9 mg/dl (8.4-10.2); CREATININE 0.65 mg/dl (0.61-1.24); POTASSIUM 4.7 mmol/L (3.5-5.1)
--- NOTE | 2016-11-20 08:12 | RADRPT ---
PROCEDURE: MR Brain without contrast. CLINICAL INDICATION: CVA. Lower extremity weakness. TECHNIQUE: An MRI of the brain was performed on a high-resolution MR scanner utilizing the followi ng sequences: Sagittal and axial T1 weighted, axial T2 weighted, axial FLAIR, coronal GRE, and axial diffusion weighted with ADC mapping. Images were reviewed high-resolution PACS workstation. No con trast was administered. COMPARISON: Head CT 05/20/2015 FINDINGS: No high signal abnormalities are seen on the diffusion-weighted images to suggest the presence of ac katya ischemia or recent infarct. There is no evidence of intracranial hemorrhage, mass effect, or mi dline shift. No extra-axial fluid collections are seen. Mild diffuse volume loss is evident. Incr eased T2-weighted/FLAIR signal intensity is noted within the periventricular and deep white matter, consistent with moderate microvascular ischemic disease. The signal intensity is normal the brains tem and cerebellum. There is a chronic right pontine infarct. No hypointense signal abnormalities ar e seen on the GRE images to suggest the presence of blood degradation products. Normal flow voids a re visible in the proximal intracranial arteries and dural sinuses, indicating patency. There is thi nning of the bilateral lenses. There is complete opacification of the sphenoid sinuses. Mild mucosa l thickening is seen in the ethmoid air cells and left maxillary sinus. Bilateral mastoid effusions are present. IMPRESSION: 1. No evidence of acute infarct. 2. Mild diffuse volume loss with moderate microvascular ischemic disease in the periventricular and deep white matter. 3. 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 RPTAT: PP .Venita Newton MD, Date Time Electronically viewed and signed by .Venita Newton MD, MD on 11/20/2016 08:12 .O/
[2016-11-20] MEDS: ARTIFICIAL TEARS 15 ML OPH BOTH EYES SCH ×4 (08:22→20:32)
[2016-11-20] MEDS: VANCOMYCIN 1 GM in NS 250 ML IVPB SCH (08:22)
[2016-11-20] MEDS: FINASTERIDE 5 MG TAB GTB SCH (08:23)
[2016-11-20] MEDS: MULTIVITAMINS 30 ML CUP GTB SCH (08:23)
[2016-11-20] MEDS: AMLODIPINE 5 MG TAB GTB SCH (08:23)
[2016-11-20] MEDS: BENAZEPRIL 40 MG TAB GTB SCH (08:23)
[2016-11-20] MEDS: DOCUSATE SODIUM 100 MG CAP PO SCH ×2 (08:24→20:32)
[2016-11-20] MEDS: CARBIDOPA/LEVODOPA (25/100) TAB GTB SCH ×2 (08:24→20:32)
[2016-11-20] MEDS: ASCORBIC ACID 500 MG TAB GTB SCH (08:24)
--- NOTE | 2016-11-20 08:27 | RADRPT ---
PROCEDURE: MR Cervical Spine. CLINICAL INDICATION: Lower extremity weakness TECHNIQUE: An MRI of the cervical spine was performed on a GE short bore high-definition 1.5 anastacio scanner utilizing the following sequences: Sagittal T1 weighted, sagittal and axial T2 weighted, sa gittal T2 weighted with fat saturation. COMPARISON: CT c-spine 07/07/2016 FINDINGS: There are postsurgical changes of anterior cervical discectomy and fusion at C3-C4 through C5-C6. T here is normal cervical lordosis. There is mild anterolisthesis of C6 on C7. The cervical cord is normal in caliber and signal intensity. There are mild degenerative changes of the atlantoaxial join t. There is mild supraspinatus soft tissue edema at the level of C3-C4. C2-3: The disk height is maintained. There is a small left-sided uncovertebral spurring and facet a rthropathy without associated central canal or neural foraminal stenosis. C3-4: Fusion level. Small uncovertebral spurring left greater than right facet arthropathy are seen at this level. There is moderate left and mild right neural foraminal stenosis. There is mild to moderate central canal stenosis with mild indentation on the posterior aspect of the cord. There is no abnormal cord signal. C4-5: Fusion level. Prominent uncovertebral spurring left greater than right and facet arthropathy are seen at this level. There is moderate to severe left and mild right neural foraminal stenosis. There is mild to moderate central canal stenosis. C5-6: Fusion level. Disk osteophyte complex eccentric to the right, right-sided uncovertebral spurr ing and mild facet arthropathy are seen at this level. There is severe right and moderate left neur al foraminal stenosis. There is mild to moderate central canal stenosis with mild flattening of the cord.. C6-7: There is mild disk height loss. Disk osteophyte complex: Right greater than left uncovertebr al spurring and moderate right facet arthropathy are seen at this level. There is mild to moderate bilateral neural foraminal stenosis. There is mild central canal stenosis. C7-T1: The intervertebral disc is normal without foraminal or canal narrowing. IMPRESSION: 1. Status post ACDF at C3-C4 through C5-C6. 2. Mild to moderate central canal stenosis at C3-C4 through C5-C6 with mild indentation on the post erior aspect of the cord at C3-C4 and mild flattening of the cord at C5-C6. No abnormal cord signal . 3. Multilevel neural foraminal stenosis more evident at C5-C6, as detailed above. 4. Mild supraspinatus soft tissue edema at the level of C3-C4. No fluid collection is identified. RPTAT: PP .Venita Newton MD, Date Time Electronically viewed and signed by .Venita Newton MD, on 11/20/2016 08:26 .O/
[2016-11-20] MEDS: GABAPENTIN (50 MG/ML PO SYG) GTB SCH ×2 (08:57→20:32)
--- NOTE | 2016-11-20 08:58 | RADRPT ---
PROCEDURE: MRI thoracic spine without contrast CLINICAL INDICATION: Lower extremity weakness TECHNIQUE: An MRI of the thoracic spine was performed on a [employer] 1.5 anastacio scanner utilizing the foll owing sequences: Sagittal and axial T1 weighted, sagittal and axial T2 weighted, and sagittal STIR. COMPARISON: Chest x-ray 08/30/2016 FINDINGS: There are postsurgical changes of posterior spinal fusion at T8 through T12. The evaluation of the l ower thoracic spine is very limited due to hardware artifacts. The thoracic kyphosis is preserved. Upper mid thoracic vertebral body heights are preserved. The upper mid thoracic spinal cord is norm al in caliber without focal cord signal abnormality. T1-T2: The disk height is maintained. The central canal and bilateral neural foramina are adequate ly patent. T2-T3: The disk height is maintained. The central canal and bilateral neural foramina are adequate ly patent. T3-T4: There is a small central disk protrusion and mild facet arthropathy without associated centr al canal or neural foraminal stenosis. T4-T5: There is mild disk desiccation. Small disk bulge with facet arthropathy and left-sided osse ous spurring from the facet joint. There is mild central canal stenosis. Bilateral neural foramina are adequately patent. T6-T7: The disk height is maintained. There is mild facet arthropathy without central canal or patti ral foraminal stenosis. T7-T8: The disk height is maintained. The central canal is adequately patent. There is mild facet arthropathy. IMPRESSION: 1. Status post posterior fusion at T8 through T12. The evaluation of the cord and the canal is jovana y limited due to hardware artifacts at these levels. 2. Spinal cord is normal in caliber without signal abnormality in the upper mid thoracic spine. 3. The canal and neural foramina are adequately patent in upper mid thoracic spine. RPTAT: PP .Venita Newton MD, MD Date Time Electronically viewed and signed by .Venita Newton MD, on 11/20/2016 08:58 .O/
--- NOTE | 2016-11-20 09:56 | RADRPT ---
PROCEDURE: MRI lumbar spine CLINICAL INDICATION: Lower extremity weakness TECHNIQUE: An MRI of the lumbar spine was performed on a GE 1.5 anastacio scanner utilizing the follow ing sequences: Sagittal and axial T1 weighted, sagittal and dual echo axial T2 weighted, and sagitta l T2 weighted with fat saturation. COMPARISON: None FINDINGS: There are 6 lumbar-type vertebrae. There is anterolisthesis of L6 on S1 likely related to bilateral pars defects. There is a stepwise retrolisthesis of L3 on L4, and L4 on L5. There is mild anterior h eight loss of L1 and L2. The conus medullaris is visible at the L1 level, and is normal in appeara nce. T12 - L1: The disk is normal in appearance. The central canal and foramina are adequately patent. L1 - L2: The disk is normal in appearance. The central canal and foramina are adequately patent. L2 - L3: There is mild disk height loss with disk desiccation. Small disk bulge and mild facet art hropathy are seen at this level. The central canal and foramina are adequately patent. L3 - L4: Mild retrolisthesis. There is mild to moderate disk height loss. Disk osteophyte complex, moderate facet arthropathy and ligamentum flavum thickening are seen at this level. There is modera te left and mild right neural foraminal stenosis. There is mild central canal stenosis. L4 - L5: There is mild to moderate disk height loss. Disk bulge, moderate facet arthropathy and l igamentum flavum thickening are seen at this level. There is moderate to severe bilateral neural fo raminal stenosis and moderate central canal stenosis. There is right greater than left lateral reces s stenosis. L5 - L6: There is moderate disk height loss with disk desiccation. Disk osteophyte complex, mild t o moderate facet arthropathy and ligamentum flavum thickening are seen at this level. There is mod erate right greater than left neural foraminal stenosis. The central canal remains adequately paten t. L6-S1: Grade 1 anterolisthesis. Disk uncovering secondary to anterolisthesis, severe facet arthrop athy and ligamentum flavum thickening are seen at this level. There is mild to moderate bilateral n eural foraminal stenosis. The central canal remains adequately patent. IMPRESSION: The study is somewhat limited due to motion artifacts. 6 lumbar type vertebrae are present. 1. Grade 1 anterolisthesis of L6 on S1 related to bilateral pars defects. 2. Multilevel moderate cervical spondylosis more evident at L3-L4 through L6-S1. At L4-L5: Moderate to severe bilateral neural foraminal stenosis. Moderate central canal stenosis. Right greater than left lateral recess stenosis. L5-L6: Moderate right greater than left neural foraminal stenosis. The central canal remains adequ ately patent. L3-L4: Moderate left and mild right neural foraminal stenosis. L6-S1: Mild to moderate bilateral neural foraminal stenosis. RPTAT: PP .Venita Newton MD, Date Time Electronically viewed and signed by .Venita Newton MD, on 11/20/2016 09:55 .O/
--- NOTE | 2016-11-20 13:43 | CONS ---
Date/Time of Note Date/Time of Note DATE: 11/20/16 TIME: 13:41 Assessment/Plan Assessment/Plan Additional Assessment/Plan Assessment recommendations; 1. Patient admitted for UTI and sepsis with significant clinical improvement. Chest x-ray from yesterday evening is essentially clear. 2. Advanced dementia. Continue current treatment. Consultation Date/Type/Reason Admit Date/Time Nov 17, 2016 at 20:56 Initial Consult Date 11/18/16 Type of Consultation: Pulmonary Referring Provider: MARCO DOE 24 HR Interval Summary Free Text/Dictation Patient condition is stable. Remains essentially unresponsive. Has remained hemodynamically stable. General exam; elderly male, on ventilator via tracheostomy, currently in no distress. Exam/Review of Systems Vital Signs Vitals Vital Signs Date Time Temp Pulse Resp B/P Pulse Ox O2 Delivery O2 Flow Rate FiO2 11/20/16 12:26 53 11/20/16 11:08 98.2 16 135/78 97 11/20/16 07:49 30 11/17/16 21:30 Mechanical Ventilator Intake and Output 11/19/16 11/19/16 11/20/16 15:00 23:00 07:00 Intake Total 500 ml 1675 ml 1650 ml Output Total 700 ml 1000 ml Balance 500 ml 975 ml 650 ml Exam HEENT exam; supple neck, no JVD. No lymphadenopathy. Midline trachea. No thyromegaly. Tracheostomy in place with clean insertion site. Patient has multiple carious teeth. Chest exam; diminished but clear vessel. S1-S2 audible, no murmurs. Regular rhythm. Abdomen exam; soft, G-tube in place. No organomegaly. Bowel sounds audible. Extremity exam; no peripheral edema. [employer] exam; patient remains unresponsive. Results Result Diagram: 11/20/16 0645 11/20/16 0645 Results 24 hrs Laboratory Tests Test 11/20/16 06:45 White Blood Count 5.0 # Red Blood Count 3.08 L Hemoglobin 9.0 L Hematocrit 28.4 L Mean Corpuscular Volume 92.2 Mean Corpuscular Hemoglobin 29.2 Mean Corpuscular Hemoglobin Concent 31.7 L Red Cell Distribution Width 15.3 H Platelet Count 195 Mean Platelet Volume 10.5 H Neutrophils % 53.0 Lymphocytes % 25.7 Monocytes % 13.1 H Eosinophils % 7.8 H Basophils % 0.2 Nucleated Red Blood Cells % 0.0 Neutrophils # 2.7 Lymphocytes # 1.3 Monocytes # 0.7 Eosinophils # 0.4 Basophils # 0.0 Nucleated Red Blood Cells # 0.0 Sodium Level 139 Potassium Level 4.7 Chloride Level 105 Carbon Dioxide Level 23 Anion Gap 16 Blood Urea Nitrogen 31 H Creatinine 0.65 Glucose Level 127 Calcium Level 7.9 L Medications Medications Current Medications Sodium Chloride (1/2 NS) 1,000 ml @ 60 mls/hr [id number] IV Last administered on 11/20/16 06:10; Admin Dose 60 MLS/HR; Start 11/18/16 at 00:00 Acetaminophen (Tylenol Liquid) 650 mg Q6H PRN GTB MILD PAIN LEVEL 1-3; Start at 00:30 Amlodipine Besylate (Norvasc) 5 mg DAILY GTB Last administered on 11/20/16 08: 23; Admin Dose 5 MG; Start 11/18/16 at 09:00 Ascorbic Acid (Vitamin C) 500 mg DAILY GTB Last administered on 11/20/16 08:24 ; Admin Dose 500 MG; Start 11/18/16 at 09:00 Benazepril HCl (Lotensin) 40 mg DAILY GTB Last administered on 11/20/16 08:23 ; Admin Dose 40 MG; Start 11/18/16 at 09:00 Carbidopa/Levodopa (Sinemet (25/ 100)) 0.5 tab BID GTB Last administered on 08:24; Admin Dose 0.5 TAB; Start 11/18/16 at 09:00 Clonidine (Catapres) 0.1 mg Q6 PRN GTB ELEVATED BLOOD PRESSURE; Start 11/18/16 at 00:30 Eye Lubricant (Artificial Tears Oph) 2 drop QID BOTH EYES Last administered on 11/20/16 08:22; Admin Dose 2 DROP; Start 11/18/16 at 09:00 Docusate Sodium (Colace) 100 mg BID PO Last administered on 11/20/16 08:24; Admin Dose 100 MG; Start 11/18/16 at 09:00 Epoetin Tree (Epogen (Oncology)) 10,000 units We@17 SC ; Start 11/23/16 at 17:00 Ferrous Sulfate (Feosol Liquid Cup) 330 mg BID@,18 GTB Last administered on 06:09; Admin Dose 330 MG; Start 11/18/16 at 06:00 Finasteride (Proscar) 5 mg DAILY GTB Last administered on 11/20/16 08:23; Admin Dose 5 MG; Start 11/18/16 at 09:00 Gabapentin (Neurontin Liquid) 300 mg BID GTB Last administered on 11/20/16 08: 57; Admin Dose 300 MG; Start 11/18/16 at 09:00 Acetaminophen/ Hydrocodone Bitart ([place] (5/325)) Give 5/325 mg Q6HRS PRN ... Q6 PRN GTB PAIN Last administered on 11/19/16 02:58; Admin Dose 1 TAB; Start 11/18/16 at 00:30 Magnesium Oxide (Mag-Ox 400) 400 mg QHS GTB Last administered on 11/19/16 20: 23; Admin Dose 400 MG; Start 11/18/16 at 21:00 Multivitamins (Multivitamin) 30 ml DAILY GTB Last administered on 11/20/16 08: 23; Admin Dose 30 ML; Start 11/18/16 at 09:00 Ondansetron HCl (Zofran Tab) 4 mg Q6H PRN GTB NAUSEA AND/OR VOMITING; Start at 00:30 Lansoprazole (Prevacid) 30 mg DAILY@06 GTB Last administered on 11/20/16 06:09 ; Admin Dose 30 MG; Start 11/18/16 at 06:00 Lorazepam (Ativan) 0.5 mg Q6H PRN GTB ANXIETY Last administered on 11/18/16 23 :21; Admin Dose 0.5 MG; Start 11/18/16 at 01:00 Miscellaneous Information This patient suarez... PRN PRN XX WOUND CARE; Start 11/18 at 03:30 Ertapenem 1 gm/ Sodium Chloride 100 ml @ 200 mls/hr Q24H IVPB Last administered on 11/19/16 17:26; Admin Dose 200 MLS/HR; Start 11/18/16 at 18:00 Metronidazole 100 ml @ 100 mls/hr Q8 IVPB Last administered on 11/20/16 06:09 ; Admin Dose 100 MLS/HR; Start 11/19/16 at 06:00 Vancomycin HCl (Vancocin) 250 ml @ 125 mls/hr Q24H IVPB Last administered on t 08:22; Admin Dose 125 MLS/HR; Start 11/20/16 at 07:30 KARLI RILEY Nov 20, 2016 13:43
--- NOTE | 2016-11-20 15:42 | CONS ---
Date/Time of Note Date/Time of Note DATE: 11/20/16 TIME: 15:41 Assessment/Plan Assessment/Plan Chief Complaint/Hosp Course No acute events, patient is lying comfortably in bed he is awake and communicative Gait 5 pulse 60 respirations 16 blood pressure 122/66 saturation 97 on 30 FiO2 WBC 5 H&H 9 and 28.4 platelets 195 no shift BUN 31 creatinine 0.65 Microbiology: Urine culture growing Proteus mirabilis susceptible to cefotaxime gentamicin and tobramycin, blood culture growing gram-positive cocci Diagnostics: Chest x-ray on admission revealed no acute infiltrates Indwelling's trach back Hobbs Antimicrobials: Flagyl Vanco Invanz Physical examination: Chronically ill-appearing elderly man in no distress. Head atraumatic normocephalic sclera nonicteric. Bugle mucosa dry. Neck is supple, tracheostomy present. Chest rise symmetrical breath sounds diminished basis. Heart S1-S2 abdomen soft bowel tones present extremities without cyanosis Assessment 1. Resolving sepsis 2. Multidrug-resistant Proteus mirabilis UTI 3. Bacteremia 4. Chronic respiratory failure 5. Quadriparesis, status post cervical surgery 6. Parkinson's dementia Plan: Remains stable, followed by multiple consultants, pending repeat blood cultures, continue on current antibiotics for now Discussed with staff Problems: Consultation Date/Type/Reason Admit Date/Time Nov 17, 2016 at 20:56 Initial Consult Date 11/18/16 Type of Consultation: id Referring Provider: MARCO DOE Exam/Review of Systems Vital Signs Vitals Vital Signs Date Time Temp Pulse Resp B/P Pulse Ox O2 Delivery O2 Flow Rate FiO2 11/20/16 15:24 98.5 60 16 122/66 97 11/20/16 14:41 30 11/17/16 21:30 Mechanical Ventilator Intake and Output 11/19/16 11/19/16 11/20/16 15:00 23:00 07:00 Intake Total 500 ml 1675 ml 1650 ml Output Total 700 ml 1000 ml Balance 500 ml 975 ml 650 ml Results Result Diagram: 11/20/16 0645 11/20/16 0645 Results 24 hrs Laboratory Tests Test 11/20/16 06:45 White Blood Count 5.0 # Red Blood Count 3.08 L Hemoglobin 9.0 L Hematocrit 28.4 L Mean Corpuscular Volume 92.2 Mean Corpuscular Hemoglobin 29.2 Mean Corpuscular Hemoglobin Concent 31.7 L Red Cell Distribution Width 15.3 H Platelet Count 195 Mean Platelet Volume 10.5 H Neutrophils % 53.0 Lymphocytes % 25.7 Monocytes % 13.1 H Eosinophils % 7.8 H Basophils % 0.2 Nucleated Red Blood Cells % 0.0 Neutrophils # 2.7 Lymphocytes # 1.3 Monocytes # 0.7 Eosinophils # 0.4 Basophils # 0.0 Nucleated Red Blood Cells # 0.0 Sodium Level 139 Potassium Level 4.7 Chloride Level 105 Carbon Dioxide Level 23 Anion Gap 16 Blood Urea Nitrogen 31 H Creatinine 0.65 Glucose Level 127 Calcium Level 7.9 L Medications Medications Current Medications Sodium Chloride (1/2 NS) 1,000 ml @ 60 mls/hr [id number] IV Last administered on 11/20/16 06:10; Admin Dose 60 MLS/HR; Start 11/18/16 at 00:00 Acetaminophen (Tylenol Liquid) 650 mg Q6H PRN GTB MILD PAIN LEVEL 1-3; Start at 00:30 Amlodipine Besylate (Norvasc) 5 mg DAILY GTB Last administered on 11/20/16 08: 23; Admin Dose 5 MG; Start 11/18/16 at 09:00 Ascorbic Acid (Vitamin C) 500 mg DAILY GTB Last administered on 11/20/16 08:24 ; Admin Dose 500 MG; Start 11/18/16 at 09:00 Benazepril HCl (Lotensin) 40 mg DAILY GTB Last administered on 11/20/16 08:23 ; Admin Dose 40 MG; Start 11/18/16 at 09:00 Carbidopa/Levodopa (Sinemet (25/ 100)) 0.5 tab BID GTB Last administered on 08:24; Admin Dose 0.5 TAB; Start 11/18/16 at 09:00 Clonidine (Catapres) 0.1 mg Q6 PRN GTB ELEVATED BLOOD PRESSURE; Start 11/18/16 at 00:30 Eye Lubricant (Artificial Tears Oph) 2 drop QID BOTH EYES Last administered on 11/20/16 13:47; Admin Dose 2 DROP; Start 11/18/16 at 09:00 Docusate Sodium (Colace) 100 mg BID PO Last administered on 11/20/16 08:24; Admin Dose 100 MG; Start 11/18/16 at 09:00 Epoetin Tree (Epogen (Oncology)) 10,000 units We@17 SC ; Start 11/23/16 at 17:00 Ferrous Sulfate (Feosol Liquid Cup) 330 mg BID@06,18 GTB Last administered on 06:09; Admin Dose 330 MG; Start 11/18/16 at 06:00 Finasteride (Proscar) 5 mg DAILY GTB Last administered on 11/20/16 08:23; Admin Dose 5 MG; Start 11/18/16 at 09:00 Gabapentin (Neurontin Liquid) 300 mg BID GTB Last administered on 11/20/16 08: 57; Admin Dose 300 MG; Start 11/18/16 at 09:00 Acetaminophen/ Hydrocodone Bitart ([place] (5/325)) Give 5/325 mg Q6HRS PRN ... Q6 PRN GTB PAIN Last administered on 11/19/16 02:58; Admin Dose 1 TAB; Start 11/18/16 at 00:30 Magnesium Oxide (Mag-Ox 400) 400 mg QHS GTB Last administered on 11/19/16 20: 23; Admin Dose 400 MG; Start 11/18/16 at 21:00 Multivitamins (Multivitamin) 30 ml DAILY GTB Last administered on 11/20/16 08: 23; Admin Dose 30 ML; Start 11/18/16 at 09:00 Ondansetron HCl (Zofran Tab) 4 mg Q6H PRN GTB NAUSEA AND/OR VOMITING; Start at 00:30 Lansoprazole (Prevacid) 30 mg DAILY@06 GTB Last administered on 11/20/16 06:09 ; Admin Dose 30 MG; Start 11/18/16 at 06:00 Lorazepam (Ativan) 0.5 mg Q6H PRN GTB ANXIETY Last administered on 11/18/16 23 :21; Admin Dose 0.5 MG; Start 11/18/16 at 01:00 Miscellaneous Information This patient suarez... PRN PRN XX WOUND CARE; Start 11/18 at 03:30 Ertapenem 1 gm/ Sodium Chloride 100 ml @ 200 mls/hr Q24H IVPB Last administered on 11/19/16 17:26; Admin Dose 200 MLS/HR; Start 11/18/16 at 18:00 Metronidazole 100 ml @ 100 mls/hr Q8 IVPB Last administered on 11/20/16 13:48 ; Admin Dose 100 MLS/HR; Start 11/19/16 at 06:00 Vancomycin HCl (Vancocin) 250 ml @ 125 mls/hr Q24H IVPB Last administered on 08:22; Admin Dose 125 MLS/HR; Start 11/20/16 at 07:30 MARI GOODE NP Nov 20, 2016 15:42
[2016-11-20] MEDS: ERTAPENEM SODIUM 1 GM in SOD CHLORIDE 0.9% 100 ML IVPB SCH (17:16)
--- NOTE | 2016-11-20 17:57 | CONS ---
Date/Time of Note Date/Time of Note DATE: 11/20/16 TIME: 17:54 Consult Date/Type/Reason Admit Date/Time Nov 17, 2016 at 20:56 Initial Consult Date 11/18/16 Type of Consultation: Neuro Reason for Consultation eval for LLE weakness Ordering Provider: MARCO DOE Subjective being managed for sepsis neurologically stable MRI Brain, C, T,L spine completed Objective Vital Signs Date Time Temp Pulse Resp B/P Pulse Ox O2 Delivery O2 Flow Rate FiO2 11/20/16 17:00 72 14 100 30 11/20/16 15:24 98.5 122/66 11/17/16 21:30 Mechanical Ventilator Intake and Output 11/19/16 11/19/16 11/20/16 15:00 23:00 07:00 Intake Total 500 ml 1675 ml 1650 ml Output Total 700 ml 1000 ml Balance 500 ml 975 ml 650 ml Exam awake and alert attentive to examiner no neglect tracks CN: LAURIE, blinks appropriately no significant facial asymmetry tracheostomy in place Motor: lifts arms 4/5 strength, RLE lifts briefly anti-gravity 3/5 LLE some contraction 1/5 but minimal movement Reflexes 1 UE, absent LE toes mute Results/Medications Result Diagram: 11/20/16 0645 11/20/16 0645 Results 24 hrs Laboratory Tests Test 11/20/16 06:45 White Blood Count 5.0 # Red Blood Count 3.08 L Hemoglobin 9.0 L Hematocrit 28.4 L Mean Corpuscular Volume 92.2 Mean Corpuscular Hemoglobin 29.2 Mean Corpuscular Hemoglobin Concent 31.7 L Red Cell Distribution Width 15.3 H Platelet Count 195 Mean Platelet Volume 10.5 H Neutrophils % 53.0 Lymphocytes % 25.7 Monocytes % 13.1 H Eosinophils % 7.8 H Basophils % 0.2 Nucleated Red Blood Cells % 0.0 Neutrophils # 2.7 Lymphocytes # 1.3 Monocytes # 0.7 Eosinophils # 0.4 Basophils # 0.0 Nucleated Red Blood Cells # 0.0 Sodium Level 139 Potassium Level 4.7 Chloride Level 105 Carbon Dioxide Level 23 Anion Gap 16 Blood Urea Nitrogen 31 H Creatinine 0.65 Glucose Level 127 Calcium Level 7.9 L Medications Current Medications Sodium Chloride (1/2 NS) 1,000 ml @ 60 mls/hr [id number] IV Last administered on 11/20/16 06:10; Admin Dose 60 MLS/HR; Start 11/18/16 at 00:00 Acetaminophen (Tylenol Liquid) 650 mg Q6H PRN GTB MILD PAIN LEVEL 1-3; Start at 00:30 Amlodipine Besylate (Norvasc) 5 mg DAILY GTB Last administered on 11/20/16 08: 23; Admin Dose 5 MG; Start 11/18/16 at 09:00 Ascorbic Acid (Vitamin C) 500 mg DAILY GTB Last administered on 11/20/16 08:24 ; Admin Dose 500 MG; Start 11/18/16 at 09:00 Benazepril HCl (Lotensin) 40 mg DAILY GTB Last administered on 11/20/16 08:23 ; Admin Dose 40 MG; Start 11/18/16 at 09:00 Carbidopa/Levodopa (Sinemet (25/ 100)) 0.5 tab BID GTB Last administered on 08:24; Admin Dose 0.5 TAB; Start 11/18/16 at 09:00 Clonidine (Catapres) 0.1 mg Q6 PRN GTB ELEVATED BLOOD PRESSURE; Start 11/18/16 at 00:30 Eye Lubricant (Artificial Tears Oph) 2 drop QID BOTH EYES Last administered on 11/20/16 17:16; Admin Dose 2 DROP; Start 11/18/16 at 09:00 Docusate Sodium (Colace) 100 mg BID PO Last administered on 11/20/16 08:24; Admin Dose 100 MG; Start 11/18/16 at 09:00 Epoetin Tere (Epogen (Oncology)) 10,000 units We@17 SC ; Start 11/23/16 at 17:00 Ferrous Sulfate (Feosol Liquid Cup) 330 mg BID@06,18 GTB Last administered on 17:16; Admin Dose 330 MG; Start 11/18/16 at 06:00 Finasteride (Proscar) 5 mg DAILY GTB Last administered on 11/20/16 08:23; Admin Dose 5 MG; Start 11/18/16 at 09:00 Gabapentin (Neurontin Liquid) 300 mg BID GTB Last administered on 11/20/16 08: 57; Admin Dose 300 MG; Start 11/18/16 at 09:00 Acetaminophen/ Hydrocodone Bitart ([place] (5/325)) Give 5/325 mg Q6HRS PRN ... Q6 PRN GTB PAIN Last administered on 11/19/16 02:58; Admin Dose 1 TAB; Start 11/18/16 at 00:30 Magnesium Oxide (Mag-Ox 400) 400 mg QHS GTB Last administered on 11/19/16 20: 23; Admin Dose 400 MG; Start 11/18/16 at 21:00 Multivitamins (Multivitamin) 30 ml DAILY GTB Last administered on 11/20/16 08: 23; Admin Dose 30 ML; Start 11/18/16 at 09:00 Ondansetron HCl (Zofran Tab) 4 mg Q6H PRN GTB NAUSEA AND/OR VOMITING; Start at 00:30 Lansoprazole (Prevacid) 30 mg DAILY@06 GTB Last administered on 11/20/16 06:09 ; Admin Dose 30 MG; Start 11/18/16 at 06:00 Lorazepam (Ativan) 0.5 mg Q6H PRN GTB ANXIETY Last administered on 11/18/16 23 :21; Admin Dose 0.5 MG; Start 11/18/16 at 01:00 Miscellaneous Information This patient suarez... PRN PRN XX WOUND CARE; Start 11/18 at 03:30 Ertapenem 1 gm/ Sodium Chloride 100 ml @ 200 mls/hr Q24H IVPB Last administered on 11/20/16 17:16; Admin Dose 200 MLS/HR; Start 11/18/16 at 18:00 Metronidazole 100 ml @ 100 mls/hr Q8 IVPB Last administered on 11/20/16 13:48 ; Admin Dose 100 MLS/HR; Start 11/19/16 at 06:00 Vancomycin HCl (Vancocin) 250 ml @ 125 mls/hr Q24H IVPB Last administered on 08:22; Admin Dose 125 MLS/HR; Start 11/20/16 at 07:30 Assessment/Plan Chief Complaint/Hosp Course 81 yo male with prior cervical surgery with quadriparesis at baseline in NH, ventilator and G-Tube dependent admitted for sepsis work up. LLE weakness present for 3-4 months? Unclear period of time of LLE weakness patient denies this being an acute issue . Imaging does not reveal any acute process. Continue management as planned. MRI Brain, Cervical, Thoracic, lumbar imaging completed. IMPRESSION: 1. No evidence of acute infarct. 2. Mild diffuse volume loss with moderate microvascular ischemic disease in the periventricular and deep white matter. 3. 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 IMPRESSION: 1. Status post ACDF at C3-C4 through C5-C6. 2. Mild to moderate central canal stenosis at C3-C4 through C5-C6 with mild indentation on the posterior aspect of the cord at C3-C4 and mild flattening of the cord at C5-C6. No abnormal cord signal. 3. Multilevel neural foraminal stenosis more evident at C5-C6, as detailed above. 4. Mild supraspinatus soft tissue edema at the level of C3-C4. No fluid collection is identified. IMPRESSION: 1. Status post posterior fusion at T8 through T12. The evaluation of the cord and the canal is very limited due to hardware artifacts at these levels. 2. Spinal cord is normal in caliber without signal abnormality in the upper mid thoracic spine. 3. The canal and neural foramina are adequately patent in upper mid thoracic spine. IMPRESSION: The study is somewhat limited due to motion artifacts. 6 lumbar type vertebrae are present. 1. Grade 1 anterolisthesis of L6 on S1 related to bilateral pars defects. 2. Multilevel moderate cervical spondylosis more evident at L3-L4 through L6-S1. At L4-L5: Moderate to severe bilateral neural foraminal stenosis. Moderate central canal stenosis. Right greater than left lateral recess stenosis. L5-L6: Moderate right greater than left neural foraminal stenosis. The central canal remains adequately patent. L3-L4: Moderate left and mild right neural foraminal stenosis. L6-S1: Mild to moderate bilateral neural foraminal stenosis. Problems: JAIME HAMPTON MD Nov 20, 2016 17:57
--- NOTE | 2016-11-20 18:09 | PN ---
Date/Time of Note Date/Time of Note DATE: 11/20/16 TIME: 18:06 Assessment/Plan VTE Prophylaxis VTE Prophylaxis Intervention: SCD's Lines/Catheters IV [facility]ter [facility]from [facility]): Peripheral IV Urinary Cath still in place: Yes Reason Cath still needed: urinary retention Assessment/Plan Assessment/Plan - Bradycardia- - cardiology consult- Dr Mendez notified. - cont to monitor. - Sepsis, continue IV fluids, telemetry monitoring, antibiotics. Dr. Shine is asked to see patient in ID consultation. - Acute cystitis - Possible tracheobronchitis - Status post cervical laminectomy for cervical and upper thoracic stenosis - History of cystic mass - Ventilator dependent respiratory failure with tracheostomy,Dr. Rivera is following patient in pulmonology consultation. Dr. Cho is asked to see patient in ENT consultation. - Left lower extremity weakness, Dr. Caballero is asked to see patient in neurology consultation. - Dysphagia with G-tube. - Parkinson's disease - Hypertension Further recommendations based on clinical course. Plan of care discussed with Dr. Manriquez. Subjective 24 Hr Interval Summary Free Text/Dictation patient showed Bradycardia- HR 47, cardiology consult- Dr Mendez notified.. will cont to monitor. dw staff Constitutional: requiring IVF, requiring O2 Exam/Review of Systems Vital Signs Vitals Vital Signs Date Time Temp Pulse Resp B/P Pulse Ox O2 Delivery O2 Flow Rate FiO2 11/20/16 17:57 55 11/20/16 17:00 14 100 30 11/20/16 15:24 98.5 122/66 11/17/16 21:30 Mechanical Ventilator Intake and Output 11/19/16 11/19/16 11/20/16 15:00 23:00 07:00 Intake Total 500 ml 1675 ml 1650 ml Output Total 700 ml 1000 ml Balance 500 ml 975 ml 650 ml Exam Respiratory: clear to auscultation, normal air movement Cardiovascular: nl pulses, other (bradycardia) Gastrointestinal: non-tender, other, soft Musculoskeletal: muscle weakness Extremities: normal pulses Neurological: unresponsive Skin: other Results Result Diagram: 11/20/16 0645 11/20/16 0645 Results 24 hrs Laboratory Tests Test 11/20/16 06:45 White Blood Count 5.0 # Red Blood Count 3.08 L Hemoglobin 9.0 L Hematocrit 28.4 L Mean Corpuscular Volume 92.2 Mean Corpuscular Hemoglobin 29.2 Mean Corpuscular Hemoglobin Concent 31.7 L Red Cell Distribution Width 15.3 H Platelet Count 195 Mean Platelet Volume 10.5 H Neutrophils % 53.0 Lymphocytes % 25.7 Monocytes % 13.1 H Eosinophils % 7.8 H Basophils % 0.2 Nucleated Red Blood Cells % 0.0 Neutrophils # 2.7 Lymphocytes # 1.3 Monocytes # 0.7 Eosinophils # 0.4 Basophils # 0.0 Nucleated Red Blood Cells # 0.0 Sodium Level 139 Potassium Level 4.7 Chloride Level 105 Carbon Dioxide Level 23 Anion Gap 16 Blood Urea Nitrogen 31 H Creatinine 0.65 Glucose Level 127 Calcium Level 7.9 L Medications Medications Current Medications Sodium Chloride (1/2 NS) 1,000 ml @ 60 mls/hr [id number] IV Last administered on 11/20/16 06:10; Admin Dose 60 MLS/HR; Start 11/18/16 at 00:00 Acetaminophen (Tylenol Liquid) 650 mg Q6H PRN GTB MILD PAIN LEVEL 1-3; Start at 00:30 Amlodipine Besylate (Norvasc) 5 mg DAILY GTB Last administered on 11/20/16 08: 23; Admin Dose 5 MG; Start 11/18/16 at 09:00 Ascorbic Acid (Vitamin C) 500 mg DAILY GTB Last administered on 11/20/16 08:24 ; Admin Dose 500 MG; Start 11/18/16 at 09:00 Benazepril HCl (Lotensin) 40 mg DAILY GTB Last administered on 11/20/16 08:23 ; Admin Dose 40 MG; Start 11/18/16 at 09:00 Carbidopa/Levodopa (Sinemet (25/ 100)) 0.5 tab BID GTB Last administered on 08:24; Admin Dose 0.5 TAB; Start 11/18/16 at 09:00 Clonidine (Catapres) 0.1 mg Q6 PRN GTB ELEVATED BLOOD PRESSURE; Start 11/18/16 at 00:30 Eye Lubricant (Artificial Tears Oph) 2 drop QID BOTH EYES Last administered on 11/20/16 17:16; Admin Dose 2 DROP; Start 11/18/16 at 09:00 Docusate Sodium (Colace) 100 mg BID PO Last administered on 11/20/16 08:24; Admin Dose 100 MG; Start 11/18/16 at 09:00 Epoetin Tree (Epogen (Oncology)) 10,000 units We@17 SC ; Start 11/23/16 at 17:00 Ferrous Sulfate (Feosol Liquid Cup) 330 mg BID@,18 GTB Last administered on 17:16; Admin Dose 330 MG; Start 11/18/16 at 06:00 Finasteride (Proscar) 5 mg DAILY GTB Last administered on 11/20/16 08:23; Admin Dose 5 MG; Start 11/18/16 at 09:00 Gabapentin (Neurontin Liquid) 300 mg BID GTB Last administered on 11/20/16 08: 57; Admin Dose 300 MG; Start 11/18/16 at 09:00 Acetaminophen/ Hydrocodone Bitart ([place] (5/325)) Give 5/325 mg Q6HRS PRN ... Q6 PRN GTB PAIN Last administered on 11/19/16 02:58; Admin Dose 1 TAB; Start 11/18/16 at 00:30 Magnesium Oxide (Mag-Ox 400) 400 mg QHS GTB Last administered on 11/19/16 20: 23; Admin Dose 400 MG; Start 11/18/16 at 21:00 Multivitamins (Multivitamin) 30 ml DAILY GTB Last administered on 11/20/16 08: 23; Admin Dose 30 ML; Start 11/18/16 at 09:00 Ondansetron HCl (Zofran Tab) 4 mg Q6H PRN GTB NAUSEA AND/OR VOMITING; Start at 00:30 Lansoprazole (Prevacid) 30 mg DAILY@06 GTB Last administered on 11/20/16 06:09 ; Admin Dose 30 MG; Start 11/18/16 at 06:00 Lorazepam (Ativan) 0.5 mg Q6H PRN GTB ANXIETY Last administered on 11/18/16 23 :21; Admin Dose 0.5 MG; Start 11/18/16 at 01:00 Miscellaneous Information This patient suarez... PRN PRN XX WOUND CARE; Start 11/18 at 03:30 Ertapenem 1 gm/ Sodium Chloride 100 ml @ 200 mls/hr Q24H IVPB Last administered on 11/20/16 17:16; Admin Dose 200 MLS/HR; Start 11/18/16 at 18:00 Metronidazole 100 ml @ 100 mls/hr Q8 IVPB Last administered on 11/20/16 13:48 ; Admin Dose 100 MLS/HR; Start 11/19/16 at 06:00 Vancomycin HCl (Vancocin) 250 ml @ 125 mls/hr Q24H IVPB Last administered on 08:22; Admin Dose 125 MLS/HR; Start 11/20/16 at 07:30 GEOVANNY HARRIS Nov 20, 2016 18:09
[2016-11-20] MEDS: MAGNESIUM OXIDE 400 MG TAB GTB SCH (20:32)
[2016-11-20] MEDS: DOCUSATE SODIUM 10 MG/ML (10ML CUP) GTB SCH (21:00)
[2016-11-20] MEDS ORDERED: DOCUSATE SODIUM 10 MG/ML (10ML CUP) PO SCH (21:00)
[2016-11-21] VITALS (24 sets, daily range): BP systolic 105–156; BP diastolic 16–78; PULSE 55–64; RESP 16–24
[2016-11-21] MEDS: ALBUTEROL 18 GM INHALER INH SCH ×4 (01:57→20:00)
[2016-11-21] MEDS: IPRATROPIUM (HFA) 12.9 GM INHALER INH SCH ×4 (01:58→20:00)
[2016-11-21] MEDS: SOD CHLORIDE 0.45% 1,000 ML IV SCH ×3 (04:15→22:15)
[2016-11-21] MEDS: FERROUS SULFATE 60 MG/ML 5ML CUP GTB SCH ×2 (05:23→17:17)
[2016-11-21] MEDS: metroNIDAZOLE 500 MG/NS (PMX) 100 ML IVPB SCH (05:23)
[2016-11-21] MEDS: LANSOPRAZOLE 30 MG CAP GTB SCH (05:23)
[2016-11-21 08:17] LABS: BASOPHILS % 0.2 % (0.0-2.0); EOSINOPHILS # 0.5 10^3/ul (0.0-0.5); EOSINOPHILS % 8.7 % (0.0-7.0); HEMATOCRIT 29.2 % (42.0-52.0); HEMOGLOBIN 9.3 g/dl (14.0-18.0); LYMPHOCYTES # 1.7 10^3/ul (0.8-2.9); LYMPHOCYTES % 32.9 % (15.0-51.0); MEAN CORPUSCULAR HEMOGLOBIN 28.5 pg (29.0-33.0); MEAN CORPUSCULAR HGB CONC 31.8 g/dl (32.0-37.0); MEAN CORPUSCULAR VOLUME 89.6 fl (82.0-101.0); MEAN PLATELET VOLUME 10.9 fl (7.4-10.4); MONOCYTE # 0.7 10^3/ul (0.3-0.9); MONOCYTES % 14.3 % (0.0-11.0); NEUTROPHIL # 2.3 10^3/ul (1.6-7.5); NEUTROPHILS % 43.3 % (39.0-77.0); PLATELET COUNT 237 10^3/UL (140-415); RED BLOOD COUNT 3.26 10^6/ul (4.70-6.10); RED CELL DISTRIBUTION WIDTH 15.2 % (11.5-14.5); WHITE BLOOD COUNT 5.2 10^3/ul (4.8-10.8)
[2016-11-21 08:36] LABS: CALCIUM 8.4 mg/dl (8.4-10.2); CREATININE 0.63 mg/dl (0.61-1.24); POTASSIUM 4.4 mmol/L (3.5-5.1)
[2016-11-21] MEDS: ARTIFICIAL TEARS 15 ML OPH BOTH EYES SCH ×4 (09:28→21:10)
[2016-11-21] MEDS: VANCOMYCIN 1 GM in NS 250 ML IVPB SCH (09:28)
[2016-11-21] MEDS: DOCUSATE SODIUM 10 MG/ML (10ML CUP) GTB SCH ×2 (09:29→21:10)
[2016-11-21] MEDS: MULTIVITAMINS 30 ML CUP GTB SCH (09:30)
[2016-11-21] MEDS: BENAZEPRIL 40 MG TAB GTB SCH (09:30)
[2016-11-21] MEDS: GABAPENTIN (50 MG/ML PO SYG) GTB SCH ×2 (09:31→21:10)
[2016-11-21] MEDS: FINASTERIDE 5 MG TAB GTB SCH (09:32)
[2016-11-21] MEDS: AMLODIPINE 5 MG TAB GTB SCH (09:32)
[2016-11-21] MEDS: ASCORBIC ACID 500 MG TAB GTB SCH (09:33)
[2016-11-21] MEDS: CARBIDOPA/LEVODOPA (25/100) TAB GTB SCH ×2 (09:33→21:10)
--- NOTE | 2016-11-21 13:56 | CONS ---
Date/Time of Note Date/Time of Note DATE: 11/21/16 TIME: 13:54 Assessment/Plan Assessment/Plan Chief Complaint/Hosp Course No acute changes, patient is lying comfortably in bed Temperature 97.6 pulse 78 respirations 16 blood pressure 126/78 saturation 97 on 30 FiO2 WBC 5.2 H&H 10 point and 29.2 platelets 237 BN 29 creatinine 0.63 Repeat blood cultures negative. Urine culture growing Proteus mirabilis susceptible to cefotaxime gentamicin and tobramycin Diagnostics: Chest x-ray on admission revealed no acute infiltrates Indwelling's trach back Hobbs Antimicrobials: Flagyl Vanco Invanz Physical examination: Chronically ill-appearing elderly man in no distress. Head atraumatic normocephalic sclera nonicteric. Bugle mucosa dry. Neck is supple, tracheostomy present. Chest rise symmetrical breath sounds diminished basis. Heart S1-S2 abdomen soft bowel tones present extremities without cyanosis Assessment 1. Resolving sepsis 2. Multidrug-resistant Proteus mirabilis UTI 3. Bacteremia 4. Chronic respiratory failure 5. Quadriparesis, status post cervical surgery 6. Parkinson's dementia Plan: Remains stable, continue Invanz, DC other antibiotics, follow recommendations of consultants Discussed with staff Problems: Consultation Date/Type/Reason Admit Date/Time Nov 17, 2016 at 20:56 Initial Consult Date 11/18/16 Type of Consultation: id Referring Provider: MARCO DOE Exam/Review of Systems Vital Signs Vitals Vital Signs Date Time Temp Pulse Resp B/P Pulse Ox O2 Delivery O2 Flow Rate FiO2 11/21/16 12:22 55 11/21/16 11:15 18 98 30 11/21/16 10:55 97.6 126/78 11/17/16 21:30 Mechanical Ventilator Intake and Output 11/20/16 11/20/16 11/21/16 15:00 23:00 07:00 Intake Total 1325 ml 1250 ml Output Total 800 ml 1100 ml Balance 525 ml 150 ml Results Result Diagram: 11/21/16 0716 11/21/16 0716 Results 24 hrs Laboratory Tests Test 11/21/16 07:16 White Blood Count 5.2 Red Blood Count 3.26 L Hemoglobin 9.3 L Hematocrit 29.2 L Mean Corpuscular Volume 89.6 Mean Corpuscular Hemoglobin 28.5 L Mean Corpuscular Hemoglobin Concent 31.8 L Red Cell Distribution Width 15.2 H Platelet Count 237 # Mean Platelet Volume 10.9 H Neutrophils % 43.3 Lymphocytes % 32.9 Monocytes % 14.3 H Eosinophils % 8.7 H Basophils % 0.2 Nucleated Red Blood Cells % 0.0 Neutrophils # 2.3 Lymphocytes # 1.7 Monocytes # 0.7 Eosinophils # 0.5 Basophils # 0.0 Nucleated Red Blood Cells # 0.0 Sodium Level 138 Potassium Level 4.4 Chloride Level 101 Carbon Dioxide Level 26 Anion Gap 15 Blood Urea Nitrogen 29 H Creatinine 0.63 Glucose Level 105 Calcium Level 8.4 Medications Medications Current Medications Sodium Chloride (1/2 NS) 1,000 ml @ 60 mls/hr [id number] IV Last administered on 11/21/16 04:15; Admin Dose 60 MLS/HR; Start 11/18/16 at 00:00 Acetaminophen (Tylenol Liquid) 650 mg Q6H PRN GTB MILD PAIN LEVEL 1-3; Start at 00:30 Amlodipine Besylate (Norvasc) 5 mg DAILY GTB Last administered on 11/21/16 09: 32; Admin Dose 5 MG; Start 11/18/16 at 09:00 Ascorbic Acid (Vitamin C) 500 mg DAILY GTB Last administered on 11/21/16 09:33 ; Admin Dose 500 MG; Start 11/18/16 at 09:00 Benazepril HCl (Lotensin) 40 mg DAILY GTB Last administered on 11/21/16 09:30 ; Admin Dose 40 MG; Start 11/18/16 at 09:00 Carbidopa/Levodopa (Sinemet (25/ 100)) 0.5 tab BID GTB Last administered on 09:33; Admin Dose 0.5 TAB; Start 11/18/16 at 09:00 Clonidine (Catapres) 0.1 mg Q6 PRN GTB ELEVATED BLOOD PRESSURE; Start 11/18/16 at 00:30 Eye Lubricant (Artificial Tears Oph) 2 drop QID BOTH EYES Last administered on 11/21/16 09:28; Admin Dose 2 DROP; Start 11/18/16 at 09:00 Epoetin Tree (Epogen (Oncology)) 10,000 units We@17 SC ; Start 11/23/16 at 17:00 Ferrous Sulfate (Feosol Liquid Cup) 330 mg BID@06,18 GTB Last administered on 05:23; Admin Dose 330 MG; Start 11/18/16 at 06:00 Finasteride (Proscar) 5 mg DAILY GTB Last administered on 11/21/16 09:32; Admin Dose 5 MG; Start 11/18/16 at 09:00 Gabapentin (Neurontin Liquid) 300 mg BID GTB Last administered on 11/21/16 09: 31; Admin Dose 300 MG; Start 11/18/16 at 09:00 Acetaminophen/ Hydrocodone Bitart ([place] (5/325)) Give 5/325 mg Q6HRS PRN ... Q6 PRN GTB PAIN Last administered on 11/19/16 02:58; Admin Dose 1 TAB; Start 11/18/16 at 00:30 Magnesium Oxide (Mag-Ox 400) 400 mg QHS GTB Last administered on 11/20/16 20: 32; Admin Dose 400 MG; Start 11/18/16 at 21:00 Multivitamins (Multivitamin) 30 ml DAILY GTB Last administered on 11/21/16 09: 30; Admin Dose 30 ML; Start 11/18/16 at 09:00 Ondansetron HCl (Zofran Tab) 4 mg Q6H PRN GTB NAUSEA AND/OR VOMITING; Start at 00:30 Lansoprazole (Prevacid) 30 mg DAILY@06 GTB Last administered on 11/21/16 05:23 ; Admin Dose 30 MG; Start 11/18/16 at 06:00 Lorazepam (Ativan) 0.5 mg Q6H PRN GTB ANXIETY Last administered on 11/18/16 23 :21; Admin Dose 0.5 MG; Start 11/18/16 at 01:00 Miscellaneous Information This patient suarez... PRN PRN XX WOUND CARE; Start 11/18 at 03:30 Ertapenem 1 gm/ Sodium Chloride 100 ml @ 200 mls/hr Q24H IVPB Last administered on 11/20/16 17:16; Admin Dose 200 MLS/HR; Start 11/18/16 at 18:00 Metronidazole (Flagyl 500 Mg (Pmx)) 100 ml @ 100 mls/hr Q8 IVPB Last administered on 11/21/16 05:23; Admin Dose 100 MLS/HR; Start 11/19/16 at 06:00 Docusate Sodium 100 mg 100 mg BID GTB Last administered on 11/21/16 09:29; Admin Dose 100 MG; Start 11/20/16 at 21:00 Vancomycin HCl (Vancocin) 250 ml @ 125 mls/hr Q24H IVPB ; Start 11/22/16 at 09: 30 Miscellaneous Information (*Rx Drug Level Order Reminder*) VANCOMYCIN TROUGH AT 0830 ONCE ONCE XX ; Start 11/22/16 at 08:30; Stop 11/22/16 at 08:31 MARI GOODE NP Nov 21, 2016 13:56
--- NOTE | 2016-11-21 14:42 | PN ---
Date/Time of Note Date/Time of Note DATE: 11/21/16 TIME: 14:34 Assessment/Plan VTE Prophylaxis VTE Prophylaxis Intervention: SCD's Lines/Catheters IV C[facility] Type (from [facility] Peripheral IV Urinary Cath still in place: Yes Reason Cath still needed: urinary retention Assessment/Plan Chief Complaint/Hosp Course Assessment/Plan - Sepsis with bacteremia. Dr. Shine is following in ID consultation. Continue antibiotics per ID. - Acute cystitis with MDR Proteus mirabilis. - Possible tracheobronchitis - Sinus bradycardia, Dr. Chadwick is following and cardiology consultation. - Hyperkalemia, resolved - Status post cervical laminectomy for cervical and upper thoracic stenosis - History of cystic mass - Ventilator dependent respiratory failure with tracheostomy,Dr. Rivera is following patient in pulmonology consultation. Dr. Cho is asked to see patient in ENT consultation. - Left lower extremity weakness, Dr. Fulton is following in neurology consultation. - Dysphagia with G-tube. - Parkinson's disease, continue Sinemet. - Hypertension, continue benazepril. Further recommendations based on clinical course. Plan of care discussed with Dr. Manriquez. Problems: Exam/Review of Systems Vital Signs Vitals Vital Signs Date Time Temp Pulse Resp B/P Pulse Ox O2 Delivery O2 Flow Rate FiO2 11/21/16 12:22 55 11/21/16 11:15 18 98 30 11/21/16 10:55 97.6 126/78 11/17/16 21:30 Mechanical Ventilator Intake and Output 11/20/16 11/20/16 11/21/16 15:00 23:00 07:00 Intake Total 1325 ml 1250 ml Output Total 800 ml 1100 ml Balance 525 ml 150 ml Exam Constitutional: alert, non-verbal, oriented Neck: other (Tracheostomy), supple Respiratory: diminished breath sounds Cardiovascular: nl pulses Gastrointestinal: non-tender, other (G-tube), soft Musculoskeletal: muscle weakness Extremities: normal pulses Neurological: nl mental status, other (Quadriparesis) Results Result Diagram: 11/21/16 0716 11/21/16 0716 Results 24 hrs Laboratory Tests Test 11/21/16 07:16 White Blood Count 5.2 Red Blood Count 3.26 L Hemoglobin 9.3 L Hematocrit 29.2 L Mean Corpuscular Volume 89.6 Mean Corpuscular Hemoglobin 28.5 L Mean Corpuscular Hemoglobin Concent 31.8 L Red Cell Distribution Width 15.2 H Platelet Count 237 # Mean Platelet Volume 10.9 H Neutrophils % 43.3 Lymphocytes % 32.9 Monocytes % 14.3 H Eosinophils % 8.7 H Basophils % 0.2 Nucleated Red Blood Cells % 0.0 Neutrophils # 2.3 Lymphocytes # 1.7 Monocytes # 0.7 Eosinophils # 0.5 Basophils # 0.0 Nucleated Red Blood Cells # 0.0 Sodium Level 138 Potassium Level 4.4 Chloride Level 101 Carbon Dioxide Level 26 Anion Gap 15 Blood Urea Nitrogen 29 H Creatinine 0.63 Glucose Level 105 Calcium Level 8.4 Thyroid Stimulating Hormone (TSH) 4.330 Medications Medications Current Medications Sodium Chloride (1/2 NS) 1,000 ml @ 60 mls/hr [id number] IV Last administered on 11/21/16 04:15; Admin Dose 60 MLS/HR; Start 11/18/16 at 00:00 Acetaminophen (Tylenol Liquid) 650 mg Q6H PRN GTB MILD PAIN LEVEL 1-3; Start at 00:30 Amlodipine Besylate (Norvasc) 5 mg DAILY GTB Last administered on 11/21/16 09: 32; Admin Dose 5 MG; Start 11/18/16 at 09:00 Ascorbic Acid (Vitamin C) 500 mg DAILY GTB Last administered on 11/21/16 09:33 ; Admin Dose 500 MG; Start 11/18/16 at 09:00 Benazepril HCl (Lotensin) 40 mg DAILY GTB Last administered on 11/21/16 09:30 ; Admin Dose 40 MG; Start 11/18/16 at 09:00 Carbidopa/Levodopa (Sinemet (25/ 100)) 0.5 tab BID GTB Last administered on 09:33; Admin Dose 0.5 TAB; Start 11/18/16 at 09:00 Clonidine (Catapres) 0.1 mg Q6 PRN GTB ELEVATED BLOOD PRESSURE; Start 11/18/16 at 00:30 Eye Lubricant (Artificial Tears Oph) 2 drop QID BOTH EYES Last administered on 11/21/16 14:13; Admin Dose 2 DROP; Start 11/18/16 at 09:00 Epoetin Tree (Epogen (Oncology)) 10,000 units We@17 SC ; Start 11/23/16 at 17:00 Ferrous Sulfate (Feosol Liquid Cup) 330 mg BID@06,18 GTB Last administered on 05:23; Admin Dose 330 MG; Start 11/18/16 at 06:00 Finasteride (Proscar) 5 mg DAILY GTB Last administered on 11/21/16 09:32; Admin Dose 5 MG; Start 11/18/16 at 09:00 Gabapentin (Neurontin Liquid) 300 mg BID GTB Last administered on 11/21/16 09: 31; Admin Dose 300 MG; Start 11/18/16 at 09:00 Acetaminophen/ Hydrocodone Bitart ([place] (5/325)) Give 5/325 mg Q6HRS PRN ... Q6 PRN GTB PAIN Last administered on 11/19/16 02:58; Admin Dose 1 TAB; Start 11/18/16 at 00:30 Magnesium Oxide (Mag-Ox 400) 400 mg QHS GTB Last administered on 11/20/16 20: 32; Admin Dose 400 MG; Start 11/18/16 at 21:00 Multivitamins (Multivitamin) 30 ml DAILY GTB Last administered on 11/21/16 09: 30; Admin Dose 30 ML; Start 11/18/16 at 09:00 Ondansetron HCl (Zofran Tab) 4 mg Q6H PRN GTB NAUSEA AND/OR VOMITING; Start at 00:30 Lansoprazole (Prevacid) 30 mg DAILY@06 GTB Last administered on 11/21/16 05:23 ; Admin Dose 30 MG; Start 11/18/16 at 06:00 Lorazepam (Ativan) 0.5 mg Q6H PRN GTB ANXIETY Last administered on 11/18/16 23 :21; Admin Dose 0.5 MG; Start 11/18/16 at 01:00 Miscellaneous Information This patient suarez... PRN PRN XX WOUND CARE; Start 11/18 at 03:30 Ertapenem/Sodium Chloride (Invanz/NS) 100 ml @ 200 mls/hr Q24H IVPB Last administered on 11/20/16 17:16; Admin Dose 200 MLS/HR; Start 11/18/16 at 18:00 Docusate Sodium (Colace Liquid Cup) 100 mg BID GTB Last administered on t 09:29; Admin Dose 100 MG; Start 11/20/16 at 21:00 MARCO DOE Nov 21, 2016 14:42
--- NOTE | 2016-11-21 15:56 | CONS ---
Date/Time of Note Date/Time of Note DATE: 11/21/16 TIME: 15:56 Consult Date/Type/Reason Admit Date/Time Nov 17, 2016 at 20:56 Initial Consult Date 11/18/16 Type of Consultation: Pulmonary Ordering Provider: MARCO DOE Objective Vital Signs Date Time Temp Pulse Resp B/P Pulse Ox O2 Delivery O2 Flow Rate FiO2 11/21/16 15:08 97.9 74 16 125/16 97 11/21/16 11:15 30 11/17/16 21:30 Mechanical Ventilator Intake and Output 11/20/16 11/20/16 11/21/16 15:00 23:00 07:00 Intake Total 1325 ml 1250 ml Output Total 800 ml 1100 ml Balance 525 ml 150 ml Results/Medications Result Diagram: 11/21/16 0716 11/21/16 0716 Results 24 hrs Laboratory Tests Test 11/21/16 07:16 White Blood Count 5.2 Red Blood Count 3.26 L Hemoglobin 9.3 L Hematocrit 29.2 L Mean Corpuscular Volume 89.6 Mean Corpuscular Hemoglobin 28.5 L Mean Corpuscular Hemoglobin Concent 31.8 L Red Cell Distribution Width 15.2 H Platelet Count 237 # Mean Platelet Volume 10.9 H Neutrophils % 43.3 Lymphocytes % 32.9 Monocytes % 14.3 H Eosinophils % 8.7 H Basophils % 0.2 Nucleated Red Blood Cells % 0.0 Neutrophils # 2.3 Lymphocytes # 1.7 Monocytes # 0.7 Eosinophils # 0.5 Basophils # 0.0 Nucleated Red Blood Cells # 0.0 Sodium Level 138 Potassium Level 4.4 Chloride Level 101 Carbon Dioxide Level 26 Anion Gap 15 Blood Urea Nitrogen 29 H Creatinine 0.63 Glucose Level 105 Calcium Level 8.4 Thyroid Stimulating Hormone (TSH) 4.330 Medications Current Medications Sodium Chloride (1/2 NS) 1,000 ml @ 60 mls/hr [id number] IV Last administered on 11/21/16 04:15; Admin Dose 60 MLS/HR; Start 11/18/16 at 00:00 Acetaminophen (Tylenol Liquid) 650 mg Q6H PRN GTB MILD PAIN LEVEL 1-3; Start at 00:30 Amlodipine Besylate (Norvasc) 5 mg DAILY GTB Last administered on 11/21/16 09: 32; Admin Dose 5 MG; Start 11/18/16 at 09:00 Ascorbic Acid (Vitamin C) 500 mg DAILY GTB Last administered on 11/21/16 09:33 ; Admin Dose 500 MG; Start 11/18/16 at 09:00 Benazepril HCl (Lotensin) 40 mg DAILY GTB Last administered on 11/21/16 09:30 ; Admin Dose 40 MG; Start 11/18/16 at 09:00 Carbidopa/Levodopa (Sinemet (25/ 100)) 0.5 tab BID GTB Last administered on 09:33; Admin Dose 0.5 TAB; Start 11/18/16 at 09:00 Clonidine (Catapres) 0.1 mg Q6 PRN GTB ELEVATED BLOOD PRESSURE; Start 11/18/16 at 00:30 Eye Lubricant (Artificial Tears Oph) 2 drop QID BOTH EYES Last administered on 11/21/16 14:13; Admin Dose 2 DROP; Start 11/18/16 at 09:00 Epoetin Tree (Epogen (Oncology)) 10,000 units We@17 SC ; Start 11/23/16 at 17:00 Ferrous Sulfate (Feosol Liquid Cup) 330 mg BID@06,18 GTB Last administered on 05:23; Admin Dose 330 MG; Start 11/18/16 at 06:00 Finasteride (Proscar) 5 mg DAILY GTB Last administered on 11/21/16 09:32; Admin Dose 5 MG; Start 11/18/16 at 09:00 Gabapentin (Neurontin Liquid) 300 mg BID GTB Last administered on 11/21/16 09: 31; Admin Dose 300 MG; Start 11/18/16 at 09:00 Acetaminophen/ Hydrocodone Bitart ([place] (5/325)) Give 5/325 mg Q6HRS PRN ... Q6 PRN GTB PAIN Last administered on 11/19/16 02:58; Admin Dose 1 TAB; Start 11/18/16 at 00:30 Magnesium Oxide (Mag-Ox 400) 400 mg QHS GTB Last administered on 11/20/16 20: 32; Admin Dose 400 MG; Start 11/18/16 at 21:00 Multivitamins (Multivitamin) 30 ml DAILY GTB Last administered on 11/21/16 09: 30; Admin Dose 30 ML; Start 11/18/16 at 09:00 Ondansetron HCl (Zofran Tab) 4 mg Q6H PRN GTB NAUSEA AND/OR VOMITING; Start at 00:30 Lansoprazole (Prevacid) 30 mg DAILY@06 GTB Last administered on 11/21/16 05:23 ; Admin Dose 30 MG; Start 11/18/16 at 06:00 Lorazepam (Ativan) 0.5 mg Q6H PRN GTB ANXIETY Last administered on 11/18/16 23 :21; Admin Dose 0.5 MG; Start 11/18/16 at 01:00 Miscellaneous Information This patient suarez... PRN PRN XX WOUND CARE; Start 11/18 at 03:30 Ertapenem/Sodium Chloride (Invanz/NS) 100 ml @ 200 mls/hr Q24H IVPB Last administered on 11/20/16 17:16; Admin Dose 200 MLS/HR; Start 11/18/16 at 18:00 Docusate Sodium (Colace Liquid Cup) 100 mg BID GTB Last administered on 09:29; Admin Dose 100 MG; Start 11/20/16 at 21:00 Assessment/Plan Chief Complaint/Hosp Course Patient comfortable this morning. No significant changes overnight. On examination Generalized weaknessGENERAL: Chronically ill-appearing gentleman on mechanical ventilation comfortable at rest VITAL SIGNS: per chart NECK: Supple. No JVD or lymphadenopathy. CARDIAC EXAM: S1, S2. No added sounds or murmurs. CHEST: clear bilaterally, No added sounds, rales or wheezes ABDOMEN: Soft, nontender. No guarding or rebound. EXTREMITIES: No cyanosis, clubbing or edema. NEUROLOGIC: Generalized weakness Labs White count 5.2 hemoglobin 9.3 platelets 237 Chemistry within normal limits except for BUN of 29 PO2 160 on current ventilator settings Assessment 1. 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 Urinary tract infection secondary to Proteus with sepsis now resolved 3. Vent dependent respiratory failure 4. Dysphagia with G-tube Recommendations 1. Continue current ventilator settings 2. Continue antibiotics per infectious diseases consider de-escalation. 3. Continue tube feeding 4. Continue neuro recommendations following recent MRIs. Problems: INDER LONDON MD, [facility] Nov 21, 2016 15:56
[2016-11-21] MEDS ORDERED: COLLAGENASE 30 GM TUBE TOP PRN (17:00)
[2016-11-21] MEDS: ERTAPENEM SODIUM 1 GM in SOD CHLORIDE 0.9% 100 ML IVPB SCH (17:19)
[2016-11-21] MEDS: COLLAGENASE 30 GM TUBE TOP SCH (17:30)
[2016-11-21] MEDS: PROMETHAZINE/CODEINE 5ML CUP PO PRN (21:00)
[2016-11-21] MEDS: MAGNESIUM OXIDE 400 MG TAB GTB SCH (21:10)
[2016-11-22] VITALS (22 sets, daily range): BP systolic 112–157; BP diastolic 56–69; PULSE 50–80; RESP 12–25
[2016-11-22] MEDS: PROMETHAZINE/CODEINE 5ML CUP PO PRN ×3 (01:00→17:45)
[2016-11-22] MEDS: ALBUTEROL 18 GM INHALER INH SCH ×4 (02:00→19:32)
[2016-11-22] MEDS: IPRATROPIUM (HFA) 12.9 GM INHALER INH SCH ×4 (02:00→19:32)
[2016-11-22] MEDS: FERROUS SULFATE 60 MG/ML 5ML CUP GTB SCH ×2 (06:27→17:33)
[2016-11-22] MEDS: LANSOPRAZOLE 30 MG CAP GTB SCH (06:27)
[2016-11-22 06:44] LABS: BASOPHILS % 0.5 % (0.0-2.0); EOSINOPHILS # 0.4 10^3/ul (0.0-0.5); EOSINOPHILS % 9.3 % (0.0-7.0); HEMATOCRIT 27.3 % (42.0-52.0); HEMOGLOBIN 8.7 g/dl (14.0-18.0); LYMPHOCYTES # 1.4 10^3/ul (0.8-2.9); LYMPHOCYTES % 32.1 % (15.0-51.0); MEAN CORPUSCULAR HEMOGLOBIN 28.3 pg (29.0-33.0); MEAN CORPUSCULAR HGB CONC 31.9 g/dl (32.0-37.0); MEAN CORPUSCULAR VOLUME 88.9 fl (82.0-101.0); MEAN PLATELET VOLUME 10.6 fl (7.4-10.4); MONOCYTE # 0.8 10^3/ul (0.3-0.9); MONOCYTES % 17.4 % (0.0-11.0); NEUTROPHIL # 1.7 10^3/ul (1.6-7.5); NEUTROPHILS % 40.5 % (39.0-77.0); PLATELET COUNT 226 10^3/UL (140-415); RED BLOOD COUNT 3.07 10^6/ul (4.70-6.10); RED CELL DISTRIBUTION WIDTH 15.2 % (11.5-14.5); WHITE BLOOD COUNT 4.3 10^3/ul (4.8-10.8)
[2016-11-22 07:44] LABS: CREATININE 0.64 mg/dl (0.61-1.24); POTASSIUM 4.5 mmol/L (3.5-5.1)
[2016-11-22] MEDS: DOCUSATE SODIUM 10 MG/ML (10ML CUP) GTB SCH ×2 (08:14→21:18)
[2016-11-22] MEDS: ARTIFICIAL TEARS 15 ML OPH BOTH EYES SCH ×4 (08:14→21:18)
[2016-11-22] MEDS: FINASTERIDE 5 MG TAB GTB SCH (08:14)
[2016-11-22] MEDS: BENAZEPRIL 40 MG TAB GTB SCH (08:15)
[2016-11-22] MEDS: MULTIVITAMINS 30 ML CUP GTB SCH (08:15)
[2016-11-22] MEDS: AMLODIPINE 5 MG TAB GTB SCH (08:16)
[2016-11-22] MEDS: GABAPENTIN (50 MG/ML PO SYG) GTB SCH ×2 (08:16→21:19)
[2016-11-22] MEDS: ASCORBIC ACID 500 MG TAB GTB SCH (08:17)
[2016-11-22] MEDS: CARBIDOPA/LEVODOPA (25/100) TAB GTB SCH ×2 (08:17→21:19)
[2016-11-22] MEDS: COLLAGENASE 30 GM TUBE TOP SCH (08:18)
[2016-11-22] MEDS ORDERED: VANCOMYCIN 1 GM in NS 250 ML IVPB SCH (09:30)
--- NOTE | 2016-11-22 11:37 | CONS ---
Date/Time of Note Date/Time of Note DATE: 11/22/16 TIME: 11:36 Consult Date/Type/Reason Admit Date/Time Nov 17, 2016 at 20:56 Initial Consult Date 11/18/16 Type of Consultation: Pulmonary Ordering Provider: MARCO DOE Objective Vital Signs Date Time Temp Pulse Resp B/P Pulse Ox O2 Delivery O2 Flow Rate FiO2 11/22/16 11:05 58 18 100 30 11/22/16 10:56 99.3 121/56 Intake and Output 11/21/16 11/21/16 11/22/16 14:59 22:59 06:59 Intake Total 250 ml 1325 ml 1150 ml Output Total 800 ml 1000 ml Balance 250 ml 525 ml 150 ml Results/Medications Result Diagram: 11/22/1614 11/22/1614 Results 24 hrs Laboratory Tests Test 11/21/16 18:35 11/22/16 00:50 11/22/16 06:14 Troponin I < 0.012 < 0.012 White Blood Count 4.3 L Red Blood Count 3.07 L Hemoglobin 8.7 L Hematocrit 27.3 L Mean Corpuscular Volume 88.9 Mean Corpuscular Hemoglobin 28.3 L Mean Corpuscular Hemoglobin Concent 31.9 L Red Cell Distribution Width 15.2 H Platelet Count 226 Mean Platelet Volume 10.6 H Neutrophils % 40.5 Lymphocytes % 32.1 Monocytes % 17.4 H Eosinophils % 9.3 H Basophils % 0.5 Nucleated Red Blood Cells % 0.0 Neutrophils # 1.7 Lymphocytes # 1.4 Monocytes # 0.8 Eosinophils # 0.4 Basophils # 0.0 Nucleated Red Blood Cells # 0.0 Sodium Level 140 Potassium Level 4.5 Chloride Level 104 Carbon Dioxide Level 27 Anion Gap 14 Blood Urea Nitrogen 27 H Creatinine 0.64 Glucose Level 102 Calcium Level 8.0 L Medications Current Medications Sodium Chloride (1/2 NS) 1,000 ml @ 60 mls/hr [id number] IV Last administered on 11/21/16 22:15; Admin Dose 60 MLS/HR; Start 11/18/16 at 00:00 Acetaminophen (Tylenol Liquid) 650 mg Q6H PRN GTB MILD PAIN LEVEL 1-3 Last administered on 11/21/16 17:17; Admin Dose 650 MG; Start 11/18/16 at 00:30 Amlodipine Besylate (Norvasc) 5 mg DAILY GTB Last administered on 11/22/16 08: 16; Admin Dose 5 MG; Start 11/18/16 at 09:00 Ascorbic Acid (Vitamin C) 500 mg DAILY GTB Last administered on 11/22/16 08:17 ; Admin Dose 500 MG; Start 11/18/16 at 09:00 Benazepril HCl (Lotensin) 40 mg DAILY GTB Last administered on 11/22/16 08:15 ; Admin Dose 40 MG; Start 11/18/16 at 09:00 Carbidopa/Levodopa (Sinemet (25/ 100)) 0.5 tab BID GTB Last administered on 08:17; Admin Dose 0.5 TAB; Start 11/18/16 at 09:00 Clonidine (Catapres) 0.1 mg Q6 PRN GTB ELEVATED BLOOD PRESSURE; Start 11/18/16 at 00:30 Eye Lubricant (Artificial Tears Oph) 2 drop QID BOTH EYES Last administered on 11/22/16 08:14; Admin Dose 2 DROP; Start 11/18/16 at 09:00 Epoetin Tree (Epogen (Oncology)) 10,000 units We@17 SC ; Start 11/23/16 at 17:00 Finasteride (Proscar) 5 mg DAILY GTB Last administered on 11/22/16 08:14; Admin Dose 5 MG; Start 11/18/16 at 09:00 Gabapentin (Neurontin Liquid) 300 mg BID GTB Last administered on 11/22/16 08: 16; Admin Dose 300 MG; Start 11/18/16 at 09:00 Acetaminophen/ Hydrocodone Bitart ([place] (5/325)) Give 5/325 mg Q6HRS PRN ... Q6 PRN GTB PAIN Last administered on 11/19/16 02:58; Admin Dose 1 TAB; Start 11/18/16 at 00:30 Magnesium Oxide (Mag-Ox 400) 400 mg QHS GTB Last administered on 11/21/16 21: 10; Admin Dose 400 MG; Start 11/18/16 at 21:00 Multivitamins (Multivitamin) 30 ml DAILY GTB Last administered on 11/22/16 08: 15; Admin Dose 30 ML; Start 11/18/16 at 09:00 Ondansetron HCl (Zofran Tab) 4 mg Q6H PRN GTB NAUSEA AND/OR VOMITING; Start at 00:30 Lansoprazole (Prevacid) 30 mg DAILY@06 GTB Last administered on 11/22/16 06:27 ; Admin Dose 30 MG; Start 11/18/16 at 06:00 Lorazepam 0.5 mg 0.5 mg Q6H PRN GTB ANXIETY Last administered on 11/18/16 23: 21; Admin Dose 0.5 MG; Start 11/18/16 at 01:00 Ertapenem/Sodium Chloride (Invanz/NS) 100 ml @ 200 mls/hr Q24H IVPB Last administered on 11/21/16 17:19; Admin Dose 200 MLS/HR; Start 11/18/16 at 18:00 Docusate Sodium (Colace Liquid Cup) 100 mg BID GTB Last administered on 08:14; Admin Dose 100 MG; Start 11/20/16 at 21:00 Collagenase (Santyl) 1 applic DAILY TOP Last administered on 11/22/16 08:18; Admin Dose 1 APPLIC; Start 11/21/16 at 17:30 Collagenase (Santyl) 1 applic PRN PRN TOP WOUND CARE; Start 11/21/16 at 17:00 Promethazine HCl/ Codeine (Phenergan/ Codeine) 5 ml Q4H PRN PO COUGH Last administered on 11/22/16 08:26; Admin Dose 5 ML; Start 11/21/16 at 19:00 Ferrous Sulfate (Feosol Liquid Cup) 300 mg BID@06,18 GTB Last administered on 06:27; Admin Dose 300 MG; Start 11/22/16 at 06:00 Assessment/Plan Chief Complaint/Hosp Course Remains comfortable. On examination GENERAL: Chronically ill-appearing gentleman on mechanical ventilation comfortable at rest VITAL SIGNS: per chart NECK: Supple. No JVD or lymphadenopathy. CARDIAC EXAM: S1, S2. No added sounds or murmurs. CHEST: clear bilaterally, No added sounds, rales or wheezes ABDOMEN: Soft, nontender. No guarding or rebound. EXTREMITIES: No cyanosis, clubbing or edema. NEUROLOGIC: Generalized weakness Labs White count 5.2 hemoglobin 9.3 platelets 237 Chemistry within normal limits except for BUN of 29 PO2 160 on current ventilator settings Assessment 1. 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 Urinary tract infection secondary to Proteus with sepsis now resolved 3. Vent dependent respiratory failure 4. Dysphagia with G-tube 5. ENT findings noted. Recommendations 1. Continue current ventilator settings will need tracheostomy changed XLT. Discussed with respiratory therapy. 2. Continue antibiotics per infectious diseases consider de-escalation. 3. Continue tube feeding 4. Continue neuro recommendations following recent MRIs. Problems: INDER LONDON MD, [facility] Nov 22, 2016 11:37
--- NOTE | 2016-11-22 12:02 | CONS ---
Date/Time of Note Date/Time of Note DATE: 11/22/16 TIME: 11:59 Assessment/Plan Assessment/Plan Chief Complaint/Hosp Course Assessment/Plan Chief Complaint/Hosp Course No acute changes. Alert. Awake. No Acute Distress. No Fever. Temperature 97.6 pulse 78 respirations 16 blood pressure 126/78 saturation 97 on 30 FiO2 Repeat blood cultures negative. Urine culture growing Proteus mirabilis susceptible to cefotaxime gentamicin and tobramycin Diagnostics: Chest x-ray on admission revealed no acute infiltrates Indwelling's trach back Hobbs Antimicrobials: Flagyl Vanco Invanz Physical examination: Chronically ill-appearing elderly man in no distress. Head atraumatic normocephalic sclera nonicteric. Bugle mucosa dry. Neck is supple, tracheostomy present. Chest rise symmetrical breath sounds diminished basis. Heart S1-S2 abdomen soft bowel tones present extremities without cyanosis Assessment 1. Resolving sepsis 2. Multidrug-resistant Proteus mirabilis UTI 3. Bacteremia 4. Chronic respiratory failure 5. Quadriparesis, status post cervical surgery 6. Parkinson's dementia Plan: Remains stable. Continue Invanz. DC other antibiotics. Follow with recommendations of consultants. Discussed with staff. Problems: Consultation Date/Type/Reason Admit Date/Time Nov 17, 2016 at 20:56 Initial Consult Date 11/18/16 Type of Consultation: id Referring Provider: MARCO DOE Exam/Review of Systems Vital Signs Vitals Vital Signs Date Time Temp Pulse Resp B/P Pulse Ox O2 Delivery O2 Flow Rate FiO2 11/22/16 11:05 58 18 100 30 11/22/16 10:56 99.3 121/56 Intake and Output 11/21/16 11/21/16 11/22/16 15:00 23:00 07:00 Intake Total 250 ml 1325 ml 1150 ml Output Total 800 ml 1000 ml Balance 250 ml 525 ml 150 ml Results Result Diagram: 11/22/1614 11/22/16 0614 Results 24 hrs Laboratory Tests Test 11/21/16 18:35 11/22/16 00:50 11/22/16 06:14 Troponin I < 0.012 < 0.012 White Blood Count 4.3 L Red Blood Count 3.07 L Hemoglobin 8.7 L Hematocrit 27.3 L Mean Corpuscular Volume 88.9 Mean Corpuscular Hemoglobin 28.3 L Mean Corpuscular Hemoglobin Concent 31.9 L Red Cell Distribution Width 15.2 H Platelet Count 226 Mean Platelet Volume 10.6 H Neutrophils % 40.5 Lymphocytes % 32.1 Monocytes % 17.4 H Eosinophils % 9.3 H Basophils % 0.5 Nucleated Red Blood Cells % 0.0 Neutrophils # 1.7 Lymphocytes # 1.4 Monocytes # 0.8 Eosinophils # 0.4 Basophils # 0.0 Nucleated Red Blood Cells # 0.0 Sodium Level 140 Potassium Level 4.5 Chloride Level 104 Carbon Dioxide Level 27 Anion Gap 14 Blood Urea Nitrogen 27 H Creatinine 0.64 Glucose Level 102 Calcium Level 8.0 L Medications Medications Current Medications Sodium Chloride (1/2 NS) 1,000 ml @ 60 mls/hr [id number] IV Last administered on 11/21/16 22:15; Admin Dose 60 MLS/HR; Start 11/18/16 at 00:00 Acetaminophen (Tylenol Liquid) 650 mg Q6H PRN GTB MILD PAIN LEVEL 1-3 Last administered on 11/21/16 17:17; Admin Dose 650 MG; Start 11/18/16 at 00:30 Amlodipine Besylate (Norvasc) 5 mg DAILY GTB Last administered on 11/22/16 08: 16; Admin Dose 5 MG; Start 11/18/16 at 09:00 Ascorbic Acid (Vitamin C) 500 mg DAILY GTB Last administered on 11/22/16 08:17 ; Admin Dose 500 MG; Start 11/18/16 at 09:00 Benazepril HCl (Lotensin) 40 mg DAILY GTB Last administered on 11/22/16 08:15 ; Admin Dose 40 MG; Start 11/18/16 at 09:00 Carbidopa/Levodopa (Sinemet (25/ 100)) 0.5 tab BID GTB Last administered on 08:17; Admin Dose 0.5 TAB; Start 11/18/16 at 09:00 Clonidine (Catapres) 0.1 mg Q6 PRN GTB ELEVATED BLOOD PRESSURE; Start 11/18/16 at 00:30 Eye Lubricant (Artificial Tears Oph) 2 drop QID BOTH EYES Last administered on 11/22/16 08:14; Admin Dose 2 DROP; Start 11/18/16 at 09:00 Epoetin Tree (Epogen (Oncology)) 10,000 units We@17 SC ; Start 11/23/16 at 17:00 Finasteride (Proscar) 5 mg DAILY GTB Last administered on 11/22/16 08:14; Admin Dose 5 MG; Start 11/18/16 at 09:00 Gabapentin (Neurontin Liquid) 300 mg BID GTB Last administered on 11/22/16 08: 16; Admin Dose 300 MG; Start 11/18/16 at 09:00 Acetaminophen/ Hydrocodone Bitart ([place] (5/325)) Give 5/325 mg Q6HRS PRN ... Q6 PRN GTB PAIN Last administered on 11/19/16 02:58; Admin Dose 1 TAB; Start 11/18/16 at 00:30 Magnesium Oxide (Mag-Ox 400) 400 mg QHS GTB Last administered on 11/21/16 21: 10; Admin Dose 400 MG; Start 11/18/16 at 21:00 Multivitamins (Multivitamin) 30 ml DAILY GTB Last administered on 11/22/16 08: 15; Admin Dose 30 ML; Start 11/18/16 at 09:00 Ondansetron HCl (Zofran Tab) 4 mg Q6H PRN GTB NAUSEA AND/OR VOMITING; Start at 00:30 Lansoprazole (Prevacid) 30 mg DAILY@06 GTB Last administered on 11/22/16 06:27 ; Admin Dose 30 MG; Start 11/18/16 at 06:00 Lorazepam 0.5 mg 0.5 mg Q6H PRN GTB ANXIETY Last administered on 11/18/16 23: 21; Admin Dose 0.5 MG; Start 11/18/16 at 01:00 Ertapenem/Sodium Chloride (Invanz/NS) 100 ml @ 200 mls/hr Q24H IVPB Last administered on 11/21/16 17:19; Admin Dose 200 MLS/HR; Start 11/18/16 at 18:00 Docusate Sodium (Colace Liquid Cup) 100 mg BID GTB Last administered on 08:14; Admin Dose 100 MG; Start 11/20/16 at 21:00 Collagenase (Santyl) 1 applic DAILY TOP Last administered on 11/22/16 08:18; Admin Dose 1 APPLIC; Start 11/21/16 at 17:30 Collagenase (Santyl) 1 applic PRN PRN TOP WOUND CARE; Start 11/21/16 at 17:00 Promethazine HCl/ Codeine (Phenergan/ Codeine) 5 ml Q4H PRN PO COUGH Last administered on 11/22/16 08:26; Admin Dose 5 ML; Start 11/21/16 at 19:00 Ferrous Sulfate (Feosol Liquid Cup) 300 mg BID@06,18 GTB Last administered on 06:27; Admin Dose 300 MG; Start 11/22/16 at 06:00 LISSETTE MILLAN NP Nov 22, 2016 12:02
--- NOTE | 2016-11-22 13:02 | PN ---
Date/Time of Note Date/Time of Note DATE: 11/22/16 TIME: 12:56 Assessment/Plan VTE Prophylaxis VTE Prophylaxis Intervention: SCD's Lines/Catheters IV [facility]ter Type (from [facility]): Peripheral IV Central line still needed: Yes Urinary Cath still in place: Yes Reason Cath still needed: urinary retention Assessment/Plan Chief Complaint/Hosp Course Patient remains hemodynamically stable, slightly bradycardic, afebrile. Assessment/Plan - Sepsis with bacteremia. Dr. Shine is following in ID consultation. Continue antibiotics per ID. - Acute cystitis with MDR Proteus mirabilis. - Possible tracheobronchitis - Sinus bradycardia, Dr. Chadwick is following and cardiology consultation. - Hyperkalemia, resolved - Status post cervical laminectomy for cervical and upper thoracic stenosis - History of cystic mass - Ventilator dependent respiratory failure with tracheostomy,Dr. Rivera is following patient in pulmonology consultation. - Left lower extremity weakness, No acute process per imaging. Dr. Fulton is neurology consultation is appreciated. - Dysphagia with G-tube. - Parkinson's disease, continue Sinemet. - Hypertension, continue benazepril. - Sacral decubitus stage III, continue offloading, nutrition optimization. Further recommendations based on clinical course. Plan of care discussed with Dr. Manriquez. Problems: Exam/Review of Systems Vital Signs Vitals Vital Signs Date Time Temp Pulse Resp B/P Pulse Ox O2 Delivery O2 Flow Rate FiO2 11/22/16 11:05 58 18 100 30 11/22/16 10:56 99.3 121/56 Intake and Output 11/21/16 11/21/16 11/22/16 15:00 23:00 07:00 Intake Total 250 ml 1325 ml 1150 ml Output Total 800 ml 1000 ml Balance 250 ml 525 ml 150 ml Exam Constitutional: alert, non-verbal, oriented Neck: other (Tracheostomy), supple Respiratory: diminished breath sounds Cardiovascular: nl pulses Gastrointestinal: non-tender, other (G-tube), soft Musculoskeletal: muscle weakness Extremities: normal pulses Neurological: nl mental status, other (Quadriparesis) Results Result Diagram: 11/22/16 0614 11/22/16 0614 Results 24 hrs Laboratory Tests Test 11/21/16 18:35 11/22/16 00:50 11/22/16 06:14 Troponin I < 0.012 < 0.012 White Blood Count 4.3 L Red Blood Count 3.07 L Hemoglobin 8.7 L Hematocrit 27.3 L Mean Corpuscular Volume 88.9 Mean Corpuscular Hemoglobin 28.3 L Mean Corpuscular Hemoglobin Concent 31.9 L Red Cell Distribution Width 15.2 H Platelet Count 226 Mean Platelet Volume 10.6 H Neutrophils % 40.5 Lymphocytes % 32.1 Monocytes % 17.4 H Eosinophils % 9.3 H Basophils % 0.5 Nucleated Red Blood Cells % 0.0 Neutrophils # 1.7 Lymphocytes # 1.4 Monocytes # 0.8 Eosinophils # 0.4 Basophils # 0.0 Nucleated Red Blood Cells # 0.0 Sodium Level 140 Potassium Level 4.5 Chloride Level 104 Carbon Dioxide Level 27 Anion Gap 14 Blood Urea Nitrogen 27 H Creatinine 0.64 Glucose Level 102 Calcium Level 8.0 L Medications Medications Current Medications Sodium Chloride (1/2 NS) 1,000 ml @ 60 mls/hr [id number] IV Last administered on 11/21/16 22:15; Admin Dose 60 MLS/HR; Start 11/18/16 at 00:00 Acetaminophen (Tylenol Liquid) 650 mg Q6H PRN GTB MILD PAIN LEVEL 1-3 Last administered on 11/21/16 17:17; Admin Dose 650 MG; Start 11/18/16 at 00:30 Amlodipine Besylate (Norvasc) 5 mg DAILY GTB Last administered on 11/22/16 08: 16; Admin Dose 5 MG; Start 11/18/16 at 09:00 Ascorbic Acid (Vitamin C) 500 mg DAILY GTB Last administered on 11/22/16 08:17 ; Admin Dose 500 MG; Start 11/18/16 at 09:00 Benazepril HCl (Lotensin) 40 mg DAILY GTB Last administered on 11/22/16 08:15 ; Admin Dose 40 MG; Start 11/18/16 at 09:00 Carbidopa/Levodopa (Sinemet (/ )) 0.5 tab BID GTB Last administered on 08:17; Admin Dose 0.5 TAB; Start 11/18/16 at 09:00 Clonidine (Catapres) 0.1 mg Q6 PRN GTB ELEVATED BLOOD PRESSURE; Start 11/18/16 at 00:30 Eye Lubricant (Artificial Tears Oph) 2 drop QID BOTH EYES Last administered on 11/22/16 12:38; Admin Dose 2 DROP; Start 11/18/16 at 09:00 Epoetin Tree (Epogen (Oncology)) 10,000 units We@17 SC ; Start 11/23/16 at 17:00 Finasteride (Proscar) 5 mg DAILY GTB Last administered on 11/22/16 08:14; Admin Dose 5 MG; Start 11/18/16 at 09:00 Gabapentin (Neurontin Liquid) 300 mg BID GTB Last administered on 11/22/16 08: 16; Admin Dose 300 MG; Start 11/18/16 at 09:00 Acetaminophen/ Hydrocodone Bitart ([place] (5/325)) Give 5/325 mg Q6HRS PRN ... Q6 PRN GTB PAIN Last administered on 11/19/16 02:58; Admin Dose 1 TAB; Start 11/18/16 at 00:30 Magnesium Oxide (Mag-Ox 400) 400 mg QHS GTB Last administered on 11/21/16 21: 10; Admin Dose 400 MG; Start 11/18/16 at 21:00 Multivitamins (Multivitamin) 30 ml DAILY GTB Last administered on 11/22/16 08: 15; Admin Dose 30 ML; Start 11/18/16 at 09:00 Ondansetron HCl (Zofran Tab) 4 mg Q6H PRN GTB NAUSEA AND/OR VOMITING; Start at 00:30 Lansoprazole (Prevacid) 30 mg DAILY@06 GTB Last administered on 11/22/16 06:27 ; Admin Dose 30 MG; Start 11/18/16 at 06:00 Lorazepam 0.5 mg 0.5 mg Q6H PRN GTB ANXIETY Last administered on 11/18/16 23: 21; Admin Dose 0.5 MG; Start 11/18/16 at 01:00 Ertapenem/Sodium Chloride (Invanz/NS) 100 ml @ 200 mls/hr Q24H IVPB Last administered on 11/21/16 17:19; Admin Dose 200 MLS/HR; Start 11/18/16 at 18:00 Docusate Sodium (Colace Liquid Cup) 100 mg BID GTB Last administered on 7/25/ 17at 08:14; Admin Dose 100 MG; Start 11/20/16 at 21:00 Collagenase (Santyl) 1 applic DAILY TOP Last administered on 11/22/16 08:18; Admin Dose 1 APPLIC; Start 11/21/16 at 17:30 Collagenase (Santyl) 1 applic PRN PRN TOP WOUND CARE; Start 11/21/16 at 17:00 Promethazine HCl/ Codeine (Phenergan/ Codeine) 5 ml Q4H PRN PO COUGH Last administered on 11/22/16 08:26; Admin Dose 5 ML; Start 11/21/16 at 19:00 Ferrous Sulfate (Feosol Liquid Cup) 300 mg BID@06,18 GTB Last administered on 06:27; Admin Dose 300 MG; Start 11/22/16 at 06:00 MARCO DOE Nov 22, 2016 13:02
--- NOTE | 2016-11-22 15:44 | CONS ---
Date/Time of Note Date/Time of Note DATE: 11/22/16 TIME: 15:38 Assessment/Plan Assessment/Plan Chief Complaint/Hosp Course IMP: 1.Bradycardia-NL TSH/negative trop x3 2.UTI 3.Resp failure s/p trach 4.dysphagia s/p G tube 5.fever 6.parkinsons Recc: -Tele -serial ecg's -Contineu norvasc/benazepril -Contnue abx's and cx data -Continue sinemet Problems: Consultation Date/Type/Reason Admit Date/Time Nov 17, 2016 at 20:56 Initial Consult Date 11/18/16 Type of Consultation: cardiology Reason for Consultation Bradycardia Referring Provider: MARCO DOE Exam/Review of Systems Vital Signs Vitals Vital Signs Date Time Temp Pulse Resp B/P Pulse Ox O2 Delivery O2 Flow Rate FiO2 11/22/16 15:25 98.5 52 17 112/61 98 11/22/16 13:30 30 Intake and Output 11/21/16 11/21/16 11/22/16 15:00 23:00 07:00 Intake Total 250 ml 1325 ml 1150 ml Output Total 800 ml 1000 ml Balance 250 ml 525 ml 150 ml Exam Review of Systems: CONSTITUTIONAL: No fevers, chills. PULMONARY: trached CARDIOVASCULAR: No chest pain/palpitations GASTROINTESTINAL: G tube GENITOURINARY: No hematuria/dysuria. MUSCULOSKELETAL: No myagias/arthalgias. PSYCHIATRIC: The patient denies depression. NEUROLOGIC: No weakness Constitutional: alert Psych: no complaints ENMT: mucosa pink and moist Neck: jvd, supple Respiratory: diminished breath sounds (at bases/B) Cardiovascular: regular rate and rhythm Gastrointestinal: non-tender, soft Extremities: edema (none) Neurological: other (No focal deficits) Results Result Diagram: 11/22/16 0614 11/22/16 0614 Results 24 hrs Laboratory Tests Test 11/21/16 18:35 11/22/16 00:50 11/22/16 06:14 Troponin I < 0.012 < 0.012 White Blood Count 4.3 L Red Blood Count 3.07 L Hemoglobin 8.7 L Hematocrit 27.3 L Mean Corpuscular Volume 88.9 Mean Corpuscular Hemoglobin 28.3 L Mean Corpuscular Hemoglobin Concent 31.9 L Red Cell Distribution Width 15.2 H Platelet Count 226 Mean Platelet Volume 10.6 H Neutrophils % 40.5 Lymphocytes % 32.1 Monocytes % 17.4 H Eosinophils % 9.3 H Basophils % 0.5 Nucleated Red Blood Cells % 0.0 Neutrophils # 1.7 Lymphocytes # 1.4 Monocytes # 0.8 Eosinophils # 0.4 Basophils # 0.0 Nucleated Red Blood Cells # 0.0 Sodium Level 140 Potassium Level 4.5 Chloride Level 104 Carbon Dioxide Level 27 Anion Gap 14 Blood Urea Nitrogen 27 H Creatinine 0.64 Glucose Level 102 Calcium Level 8.0 L Medications Medications Current Medications Sodium Chloride (1/2 NS) 1,000 ml @ 60 mls/hr [id number] IV Last administered on 11/21/16 22:15; Admin Dose 60 MLS/HR; Start 11/18/16 at 00:00 Acetaminophen (Tylenol Liquid) 650 mg Q6H PRN GTB MILD PAIN LEVEL 1-3 Last administered on 11/21/16 17:17; Admin Dose 650 MG; Start 11/18/16 at 00:30 Amlodipine Besylate (Norvasc) 5 mg DAILY GTB Last administered on 11/22/16 08: 16; Admin Dose 5 MG; Start 11/18/16 at 09:00 Ascorbic Acid (Vitamin C) 500 mg DAILY GTB Last administered on 11/22/16 08:17 ; Admin Dose 500 MG; Start 11/18/16 at 09:00 Benazepril HCl (Lotensin) 40 mg DAILY GTB Last administered on 11/22/16 08:15 ; Admin Dose 40 MG; Start 11/18/16 at 09:00 Carbidopa/Levodopa (Sinemet (25/ 100)) 0.5 tab BID GTB Last administered on 08:17; Admin Dose 0.5 TAB; Start 11/18/16 at 09:00 Clonidine (Catapres) 0.1 mg Q6 PRN GTB ELEVATED BLOOD PRESSURE; Start 11/18/16 at 00:30 Eye Lubricant (Artificial Tears Oph) 2 drop QID BOTH EYES Last administered on 11/22/16 12:38; Admin Dose 2 DROP; Start 11/18/16 at 09:00 Epoetin Tree (Epogen (Oncology)) 10,000 units We@17 SC ; Start 11/23/16 at 17:00 Finasteride (Proscar) 5 mg DAILY GTB Last administered on 11/22/16 08:14; Admin Dose 5 MG; Start 11/18/16 at 09:00 Gabapentin (Neurontin Liquid) 300 mg BID GTB Last administered on 11/22/16 08: 16; Admin Dose 300 MG; Start 11/18/16 at 09:00 Acetaminophen/ Hydrocodone Bitart ([place] (5/325)) Give 5/325 mg Q6HRS PRN ... Q6 PRN GTB PAIN Last administered on 11/19/16 02:58; Admin Dose 1 TAB; Start 11/18/16 at 00:30 Magnesium Oxide (Mag-Ox 400) 400 mg QHS GTB Last administered on 11/21/16 21: 10; Admin Dose 400 MG; Start 11/18/16 at 21:00 Multivitamins (Multivitamin) 30 ml DAILY GTB Last administered on 11/22/16 08: 15; Admin Dose 30 ML; Start 11/18/16 at 09:00 Ondansetron HCl (Zofran Tab) 4 mg Q6H PRN GTB NAUSEA AND/OR VOMITING; Start at 00:30 Lansoprazole (Prevacid) 30 mg DAILY@06 GTB Last administered on 11/22/16 06:27 ; Admin Dose 30 MG; Start 11/18/16 at 06:00 Lorazepam 0.5 mg 0.5 mg Q6H PRN GTB ANXIETY Last administered on 11/18/16 23: 21; Admin Dose 0.5 MG; Start 11/18/16 at 01:00 Ertapenem/Sodium Chloride (Invanz/NS) 100 ml @ 200 mls/hr Q24H IVPB Last administered on 11/21/16 17:19; Admin Dose 200 MLS/HR; Start 11/18/16 at 18:00 Docusate Sodium (Colace Liquid Cup) 100 mg BID GTB Last administered on 08:14; Admin Dose 100 MG; Start 11/20/16 at 21:00 Collagenase (Santyl) 1 applic DAILY TOP Last administered on 11/22/16 08:18; Admin Dose 1 APPLIC; Start 11/21/16 at 17:30 Collagenase (Santyl) 1 applic PRN PRN TOP WOUND CARE; Start 11/21/16 at 17:00 Promethazine HCl/ Codeine (Phenergan/ Codeine) 5 ml Q4H PRN PO COUGH Last administered on 11/22/16 08:26; Admin Dose 5 ML; Start 11/21/16 at 19:00 Ferrous Sulfate (Feosol Liquid Cup) 300 mg BID@06,18 GTB Last administered on 06:27; Admin Dose 300 MG; Start 11/22/16 at 06:00 REMBERTO PÉREZ Nov 22, 2016 15:44
[2016-11-22] MEDS: SOD CHLORIDE 0.45% 1,000 ML IV SCH ×2 (16:30→20:40)
[2016-11-22] MEDS: ERTAPENEM SODIUM 1 GM in SOD CHLORIDE 0.9% 100 ML IVPB SCH (17:44)
[2016-11-22] MEDS: MAGNESIUM OXIDE 400 MG TAB GTB SCH (21:19)
[2016-11-23] VITALS (24 sets, daily range): BP systolic 126–170; BP diastolic 60–72; PULSE 51–70; RESP 13–24
[2016-11-23] MEDS: PROMETHAZINE/CODEINE 5ML CUP PO PRN ×2 (00:32→06:08)
[2016-11-23] MEDS: IPRATROPIUM (HFA) 12.9 GM INHALER INH SCH ×4 (01:22→19:25)
[2016-11-23] MEDS: ALBUTEROL 18 GM INHALER INH SCH ×4 (01:23→19:24)
[2016-11-23] MEDS: FERROUS SULFATE 60 MG/ML 5ML CUP GTB SCH ×2 (06:00→18:34)
[2016-11-23] MEDS: LANSOPRAZOLE 30 MG CAP GTB SCH (06:01)
[2016-11-23 08:22] LABS: BASOPHILS % 0.4 % (0.0-2.0); EOSINOPHILS # 0.4 10^3/ul (0.0-0.5); EOSINOPHILS % 7.5 % (0.0-7.0); HEMOGLOBIN 8.7 g/dl (14.0-18.0); LYMPHOCYTES # 1.8 10^3/ul (0.8-2.9); LYMPHOCYTES % 39.4 % (15.0-51.0); MEAN CORPUSCULAR HGB CONC 32.2 g/dl (32.0-37.0); MEAN PLATELET VOLUME 10.6 fl (7.4-10.4); MONOCYTE # 0.8 10^3/ul (0.3-0.9); MONOCYTES % 17.6 % (0.0-11.0); NEUTROPHIL # 1.6 10^3/ul (1.6-7.5); NEUTROPHILS % 34.9 % (39.0-77.0); PLATELET COUNT 230 10^3/UL (140-415); RED CELL DISTRIBUTION WIDTH 15.4 % (11.5-14.5); WHITE BLOOD COUNT 4.7 10^3/ul (4.8-10.8)
[2016-11-23 08:51] LABS: CALCIUM 7.9 mg/dl (8.4-10.2); CREATININE 0.61 mg/dl (0.61-1.24); POTASSIUM 4.4 mmol/L (3.5-5.1)
--- NOTE | 2016-11-23 08:59 | RADRPT ---
Vent Rate: 56 bpm RR Interval: 0 msec IN Interval: 176 msec QRS Duration: 88 msec QT Interval: 396 msec QTC Interval: 382 msec P-R-T Sage: 40 - 33 - 64 degrees Sinus bradycardia Otherwise normal ECG Electronically Signed By: Diego Bowden [id number]
[2016-11-23] MEDS: ASCORBIC ACID 500 MG TAB GTB SCH (09:54)
[2016-11-23] MEDS: BENAZEPRIL 40 MG TAB GTB SCH (09:54)
[2016-11-23] MEDS: FINASTERIDE 5 MG TAB GTB SCH (09:55)
[2016-11-23] MEDS: AMLODIPINE 5 MG TAB GTB SCH (09:55)
[2016-11-23] MEDS: DOCUSATE SODIUM 10 MG/ML (10ML CUP) GTB SCH ×2 (09:56→21:52)
[2016-11-23] MEDS: MULTIVITAMINS 30 ML CUP GTB SCH (09:56)
[2016-11-23] MEDS: CARBIDOPA/LEVODOPA (25/100) TAB GTB SCH ×2 (09:56→21:52)
[2016-11-23] MEDS: COLLAGENASE 30 GM TUBE TOP SCH (09:57)
[2016-11-23] MEDS: ARTIFICIAL TEARS 15 ML OPH BOTH EYES SCH ×4 (09:57→21:52)
[2016-11-23] MEDS: GABAPENTIN (50 MG/ML PO SYG) GTB SCH ×2 (09:59→21:00)
[2016-11-23] MEDS: SOD CHLORIDE 0.45% 1,000 ML IV SCH (12:39)
--- NOTE | 2016-11-23 13:14 | CONS ---
Date/Time of Note Date/Time of Note DATE: 11/23/16 TIME: 13:11 Assessment/Plan Assessment/Plan Chief Complaint/Hosp Course IMP: 1.Bradycardia-NL TSH/negative trop x3. Stable with actually elevated BP 2.UTI 3.Resp failure s/p trach 4.dysphagia s/p G tube 5.fever 6.parkinsons 7. HTN-uncontrolled Recc: -Tele -serial ecg's -Contineu norvasc with slight increase to improve BP control/benazepril -Continue abx's and cx data -Continue sinemet Problems: Consultation Date/Type/Reason Admit Date/Time Nov 17, 2016 at 20:56 Initial Consult Date 11/18/16 Type of Consultation: cardiology Reason for Consultation bradycardia Referring Provider: MARCO DOE Exam/Review of Systems Vital Signs Vitals Vital Signs Date Time Temp Pulse Resp B/P Pulse Ox O2 Delivery O2 Flow Rate FiO2 11/23/16 12:23 70 11/23/16 11:28 98.3 18 170/72 98 11/23/16 11:20 30 Intake and Output 11/22/16 11/22/16 11/23/16 15:00 23:00 07:00 Intake Total 2400 ml 1125 ml Output Total 1100 ml 1000 ml Balance 1300 ml 125 ml Exam Review of Systems: CONSTITUTIONAL: No fevers, chills. PULMONARY: No sob CARDIOVASCULAR: No chest pain/palpitations GASTROINTESTINAL: No nausea/vomiting. GENITOURINARY: No hematuria/dysuria. MUSCULOSKELETAL: No myagias/arthalgias. PSYCHIATRIC: The patient denies depression. NEUROLOGIC: No weakness Constitutional: other (encephalopathic) Psych: no complaints Head: normocephalic ENMT: mucosa pink and moist Neck: jvd (9 cm water), other (tracehd), supple Cardiovascular: regular rate and rhythm Gastrointestinal: non-tender, soft Musculoskeletal: muscle tone (normal) Extremities: edema (none) Neurological: other (No focal deficits) Results Result Diagram: 11/23/16 0716 11/23/16 0716 Results 24 hrs Laboratory Tests Test 11/23/16 07:16 White Blood Count 4.7 L Red Blood Count 3.00 L Hemoglobin 8.7 L Hematocrit 27.0 L Mean Corpuscular Volume 90.0 Mean Corpuscular Hemoglobin 29.0 Mean Corpuscular Hemoglobin Concent 32.2 Red Cell Distribution Width 15.4 H Platelet Count 230 Mean Platelet Volume 10.6 H Neutrophils % 34.9 L Lymphocytes % 39.4 Monocytes % 17.6 H Eosinophils % 7.5 H Basophils % 0.4 Nucleated Red Blood Cells % 0.0 Neutrophils # 1.6 Lymphocytes # 1.8 Monocytes # 0.8 Eosinophils # 0.4 Basophils # 0.0 Nucleated Red Blood Cells # 0.0 Sodium Level 138 Potassium Level 4.4 Chloride Level 103 Carbon Dioxide Level 27 Anion Gap 12 Blood Urea Nitrogen 27 H Creatinine 0.61 Glucose Level 110 Calcium Level 7.9 L Medications Medications Current Medications Sodium Chloride (1/2 NS) 1,000 ml @ 60 mls/hr [id number] IV Last administered on 11/23/16 12:39; Admin Dose 60 MLS/HR; Start 11/18/16 at 00:00 Acetaminophen (Tylenol Liquid) 650 mg Q6H PRN GTB MILD PAIN LEVEL 1-3 Last administered on 11/21/16 17:17; Admin Dose 650 MG; Start 11/18/16 at 00:30 Amlodipine Besylate (Norvasc) 5 mg DAILY GTB Last administered on 11/23/16 09: 55; Admin Dose 5 MG; Start 11/18/16 at 09:00 Ascorbic Acid (Vitamin C) 500 mg DAILY GTB Last administered on 11/23/16 09:54 ; Admin Dose 500 MG; Start 11/18/16 at 09:00 Benazepril HCl (Lotensin) 40 mg DAILY GTB Last administered on 11/23/16 09:54 ; Admin Dose 40 MG; Start 11/18/16 at 09:00 Carbidopa/Levodopa (Sinemet (25/ 100)) 0.5 tab BID GTB Last administered on 09:56; Admin Dose 0.5 TAB; Start 11/18/16 at 09:00 Clonidine (Catapres) 0.1 mg Q6 PRN GTB ELEVATED BLOOD PRESSURE Last administered on 11/23/16 12:39; Admin Dose 0.1 MG; Start 11/18/16 at 00:30 Eye Lubricant (Artificial Tears Oph) 2 drop QID BOTH EYES Last administered on 11/23/16 12:40; Admin Dose 2 DROP; Start 11/18/16 at 09:00 Epoetin Tree (Epogen (Oncology)) 10,000 units We@17 SC ; Start 11/23/16 at 17:00 Finasteride (Proscar) 5 mg DAILY GTB Last administered on 11/23/16 09:55; Admin Dose 5 MG; Start 11/18/16 at 09:00 Gabapentin (Neurontin Liquid) 300 mg BID GTB Last administered on 11/23/16 09: 59; Admin Dose 300 MG; Start 11/18/16 at 09:00 Acetaminophen/ Hydrocodone Bitart ([place] (5/325)) Give 5/325 mg Q6HRS PRN ... Q6 PRN GTB PAIN Last administered on 11/19/16 02:58; Admin Dose 1 TAB; Start 11/18/16 at 00:30 Magnesium Oxide (Mag-Ox 400) 400 mg QHS GTB Last administered on 11/22/16 21: 19; Admin Dose 400 MG; Start 11/18/16 at 21:00 Multivitamins (Multivitamin) 30 ml DAILY GTB Last administered on 11/23/16 09: 56; Admin Dose 30 ML; Start 11/18/16 at 09:00 Ondansetron HCl (Zofran Tab) 4 mg Q6H PRN GTB NAUSEA AND/OR VOMITING; Start at 00:30 Lansoprazole (Prevacid) 30 mg DAILY@06 GTB Last administered on 11/23/16 06:01 ; Admin Dose 30 MG; Start 11/18/16 at 06:00 Lorazepam 0.5 mg 0.5 mg Q6H PRN GTB ANXIETY Last administered on 11/18/16 23: 21; Admin Dose 0.5 MG; Start 11/18/16 at 01:00 Ertapenem/Sodium Chloride (Invanz/NS) 100 ml @ 200 mls/hr Q24H IVPB Last administered on 11/22/16 17:44; Admin Dose 200 MLS/HR; Start 11/18/16 at 18:00 Docusate Sodium (Colace Liquid Cup) 100 mg BID GTB Last administered on 09:56; Admin Dose 100 MG; Start 11/20/16 at 21:00 Collagenase (Santyl) 1 applic DAILY TOP Last administered on 11/23/16 09:57; Admin Dose 1 APPLIC; Start 11/21/16 at 17:30 Collagenase (Santyl) 1 applic PRN PRN TOP WOUND CARE; Start 11/21/16 at 17:00 Promethazine HCl/ Codeine (Phenergan/ Codeine) 5 ml Q4H PRN PO COUGH Last administered on 11/23/16 06:08; Admin Dose 5 ML; Start 11/21/16 at 19:00 Ferrous Sulfate (Feosol Liquid Cup) 300 mg BID@,18 GTB Last administered on 06:00; Admin Dose 300 MG; Start 11/22/16 at 06:00 REMBERTO PÉREZ Nov 23, 2016 13:14
--- NOTE | 2016-11-23 14:28 | PN ---
Date/Time of Note Date/Time of Note DATE: 11/23/16 TIME: 14:24 Assessment/Plan VTE Prophylaxis VTE Prophylaxis Intervention: SCD's Lines/Catheters IV C[facility]ter Type (from [facility]): Peripheral IV Urinary Cath still in place: Yes Reason Cath still needed: urinary retention Assessment/Plan Chief Complaint/Hosp Course Patient tolerates G-tube feeding well, remains afebrile, continued on antibiotics. Patient was episode of elevated blood pressure, slightly bradycardic, continue hydralazine as needed. Assessment/Plan - Sepsis with bacteremia. Dr. Shine is following in ID consultation. Continue antibiotics per ID. - Acute cystitis with MDR Proteus mirabilis. - Possible tracheobronchitis - Sinus bradycardia, Dr. Chadwick is following and cardiology consultation. - Hyperkalemia, resolved - Status post cervical laminectomy for cervical and upper thoracic stenosis - History of cystic mass - Ventilator dependent respiratory failure with tracheostomy,Dr. Rivera is following patient in pulmonology consultation. - Left lower extremity weakness, No acute process per imaging. Dr. Fulton is neurology consultation is appreciated. - Dysphagia with G-tube. - Parkinson's disease, continue Sinemet. - Hypertension, continue benazepril. - Sacral decubitus stage III, continue offloading, nutrition optimization. Further recommendations based on clinical course. Plan of care discussed with Dr. Manriquez. Problems: Exam/Review of Systems Vital Signs Vitals Vital Signs Date Time Temp Pulse Resp B/P Pulse Ox O2 Delivery O2 Flow Rate FiO2 11/23/16 12:23 70 11/23/16 11:28 98.3 18 170/72 98 11/23/16 11:20 30 Intake and Output 11/22/16 11/22/16 11/23/16 15:00 23:00 07:00 Intake Total 2400 ml 1125 ml Output Total 1100 ml 1000 ml Balance 1300 ml 125 ml Exam Constitutional: alert, non-verbal, oriented Neck: other (Tracheostomy), supple Respiratory: diminished breath sounds Cardiovascular: nl pulses Gastrointestinal: non-tender, other (G-tube), soft Musculoskeletal: muscle weakness Extremities: normal pulses Neurological: nl mental status, other (Quadriparesis) Results Result Diagram: 11/23/16 0716 11/23/16 0716 Results 24 hrs Laboratory Tests Test 11/23/16 07:16 White Blood Count 4.7 L Red Blood Count 3.00 L Hemoglobin 8.7 L Hematocrit 27.0 L Mean Corpuscular Volume 90.0 Mean Corpuscular Hemoglobin 29.0 Mean Corpuscular Hemoglobin Concent 32.2 Red Cell Distribution Width 15.4 H Platelet Count 230 Mean Platelet Volume 10.6 H Neutrophils % 34.9 L Lymphocytes % 39.4 Monocytes % 17.6 H Eosinophils % 7.5 H Basophils % 0.4 Nucleated Red Blood Cells % 0.0 Neutrophils # 1.6 Lymphocytes # 1.8 Monocytes # 0.8 Eosinophils # 0.4 Basophils # 0.0 Nucleated Red Blood Cells # 0.0 Sodium Level 138 Potassium Level 4.4 Chloride Level 103 Carbon Dioxide Level 27 Anion Gap 12 Blood Urea Nitrogen 27 H Creatinine 0.61 Glucose Level 110 Calcium Level 7.9 L Medications Medications Current Medications Sodium Chloride (1/2 NS) 1,000 ml @ 60 mls/hr [id number] IV Last administered on 11/23/16 12:39; Admin Dose 60 MLS/HR; Start 11/18/16 at 00:00 Acetaminophen (Tylenol Liquid) 650 mg Q6H PRN GTB MILD PAIN LEVEL 1-3 Last administered on 11/21/16 17:17; Admin Dose 650 MG; Start 11/18/16 at 00:30 Amlodipine Besylate (Norvasc) 5 mg DAILY GTB Last administered on 11/23/16 09: 55; Admin Dose 5 MG; Start 11/18/16 at 09:00 Ascorbic Acid (Vitamin C) 500 mg DAILY GTB Last administered on 11/23/16 09:54 ; Admin Dose 500 MG; Start 11/18/16 at 09:00 Benazepril HCl (Lotensin) 40 mg DAILY GTB Last administered on 11/23/16 09:54 ; Admin Dose 40 MG; Start 11/18/16 at 09:00 Carbidopa/Levodopa (Sinemet (/ )) 0.5 tab BID GTB Last administered on 09:56; Admin Dose 0.5 TAB; Start 11/18/16 at 09:00 Clonidine (Catapres) 0.1 mg Q6 PRN GTB ELEVATED BLOOD PRESSURE Last administered on 11/23/16 12:39; Admin Dose 0.1 MG; Start 11/18/16 at 00:30 Eye Lubricant (Artificial Tears Oph) 2 drop QID BOTH EYES Last administered on 11/23/16 12:40; Admin Dose 2 DROP; Start 11/18/16 at 09:00 Epoetin Tree (Epogen (Oncology)) 10,000 units We@17 SC ; Start 11/23/16 at 17:00 Finasteride (Proscar) 5 mg DAILY GTB Last administered on 11/23/16 09:55; Admin Dose 5 MG; Start 11/18/16 at 09:00 Gabapentin (Neurontin Liquid) 300 mg BID GTB Last administered on 11/23/16 09: 59; Admin Dose 300 MG; Start 11/18/16 at 09:00 Acetaminophen/ Hydrocodone Bitart ([place] (5/325)) Give 5/325 mg Q6HRS PRN ... Q6 PRN GTB PAIN Last administered on 11/19/16 02:58; Admin Dose 1 TAB; Start 11/18/16 at 00:30 Magnesium Oxide (Mag-Ox 400) 400 mg QHS GTB Last administered on 11/22/16 21: 19; Admin Dose 400 MG; Start 11/18/16 at 21:00 Multivitamins (Multivitamin) 30 ml DAILY GTB Last administered on 11/23/16 09: 56; Admin Dose 30 ML; Start 11/18/16 at 09:00 Ondansetron HCl (Zofran Tab) 4 mg Q6H PRN GTB NAUSEA AND/OR VOMITING; Start at 00:30 Lansoprazole (Prevacid) 30 mg DAILY@06 GTB Last administered on 11/23/16 06:01 ; Admin Dose 30 MG; Start 11/18/16 at 06:00 Lorazepam 0.5 mg 0.5 mg Q6H PRN GTB ANXIETY Last administered on 11/18/16 23: 21; Admin Dose 0.5 MG; Start 11/18/16 at 01:00 Ertapenem/Sodium Chloride (Invanz/NS) 100 ml @ 200 mls/hr Q24H IVPB Last administered on 11/22/16 17:44; Admin Dose 200 MLS/HR; Start 11/18/16 at 18:00 Docusate Sodium (Colace Liquid Cup) 100 mg BID GTB Last administered on 09:56; Admin Dose 100 MG; Start 11/20/16 at 21:00 Collagenase (Santyl) 1 applic DAILY TOP Last administered on 11/23/16 09:57; Admin Dose 1 APPLIC; Start 11/21/16 at 17:30 Collagenase (Santyl) 1 applic PRN PRN TOP WOUND CARE; Start 11/21/16 at 17:00 Promethazine HCl/ Codeine (Phenergan/ Codeine) 5 ml Q4H PRN PO COUGH Last administered on 11/23/16 06:08; Admin Dose 5 ML; Start 11/21/16 at 19:00 Ferrous Sulfate (Feosol Liquid Cup) 300 mg BID@ GTB Last administered on 06:00; Admin Dose 300 MG; Start 11/22/16 at 06:00 MARCO DOE Nov 23, 2016 14:28
[2016-11-23] MEDS ORDERED: hydrALAzine 20 MG INJ IV PRN (14:30)
--- NOTE | 2016-11-23 15:26 | CONS ---
Date/Time of Note Date/Time of Note DATE: 11/23/16 TIME: 15:26 Consult Date/Type/Reason Admit Date/Time Nov 17, 2016 at 20:56 Initial Consult Date 11/18/16 Type of Consultation: cardiology Ordering Provider: MARCO DOE Objective Vital Signs Date Time Temp Pulse Resp B/P Pulse Ox O2 Delivery O2 Flow Rate FiO2 11/23/16 15:01 97.8 55 18 146/62 100 11/23/16 14:53 30 Intake and Output 11/22/16 11/22/16 11/23/16 14:59 22:59 06:59 Intake Total 2400 ml 1125 ml Output Total 1100 ml 1000 ml Balance 1300 ml 125 ml Results/Medications Result Diagram: 11/23/16 0716 11/23/16 0716 Results 24 hrs Laboratory Tests Test 11/23/16 07:16 White Blood Count 4.7 L Red Blood Count 3.00 L Hemoglobin 8.7 L Hematocrit 27.0 L Mean Corpuscular Volume 90.0 Mean Corpuscular Hemoglobin 29.0 Mean Corpuscular Hemoglobin Concent 32.2 Red Cell Distribution Width 15.4 H Platelet Count 230 Mean Platelet Volume 10.6 H Neutrophils % 34.9 L Lymphocytes % 39.4 Monocytes % 17.6 H Eosinophils % 7.5 H Basophils % 0.4 Nucleated Red Blood Cells % 0.0 Neutrophils # 1.6 Lymphocytes # 1.8 Monocytes # 0.8 Eosinophils # 0.4 Basophils # 0.0 Nucleated Red Blood Cells # 0.0 Sodium Level 138 Potassium Level 4.4 Chloride Level 103 Carbon Dioxide Level 27 Anion Gap 12 Blood Urea Nitrogen 27 H Creatinine 0.61 Glucose Level 110 Calcium Level 7.9 L Medications Current Medications Sodium Chloride (1/2 NS) 1,000 ml @ 60 mls/hr [id number] IV Last administered on 11/23/16 12:39; Admin Dose 60 MLS/HR; Start 11/18/16 at 00:00 Acetaminophen (Tylenol Liquid) 650 mg Q6H PRN GTB MILD PAIN LEVEL 1-3 Last administered on 11/21/16 17:17; Admin Dose 650 MG; Start 11/18/16 at 00:30 Amlodipine Besylate (Norvasc) 5 mg DAILY GTB Last administered on 11/23/16 09: 55; Admin Dose 5 MG; Start 11/18/16 at 09:00 Ascorbic Acid (Vitamin C) 500 mg DAILY GTB Last administered on 11/23/16 09:54 ; Admin Dose 500 MG; Start 11/18/16 at 09:00 Benazepril HCl (Lotensin) 40 mg DAILY GTB Last administered on 11/23/16 09:54 ; Admin Dose 40 MG; Start 11/18/16 at 09:00 Carbidopa/Levodopa (Sinemet (/ )) 0.5 tab BID GTB Last administered on 09:56; Admin Dose 0.5 TAB; Start 11/18/16 at 09:00 Clonidine (Catapres) 0.1 mg Q6 PRN GTB ELEVATED BLOOD PRESSURE Last administered on 11/23/16 12:39; Admin Dose 0.1 MG; Start 11/18/16 at 00:30 Eye Lubricant (Artificial Tears Oph) 2 drop QID BOTH EYES Last administered on 11/23/16 12:40; Admin Dose 2 DROP; Start 11/18/16 at 09:00 Epoetin Tree (Epogen (Oncology)) 10,000 units We@17 SC ; Start 11/23/16 at 17:00 Finasteride (Proscar) 5 mg DAILY GTB Last administered on 11/23/16 09:55; Admin Dose 5 MG; Start 11/18/16 at 09:00 Gabapentin (Neurontin Liquid) 300 mg BID GTB Last administered on 11/23/16 09: 59; Admin Dose 300 MG; Start 11/18/16 at 09:00 Acetaminophen/ Hydrocodone Bitart ([place] (5/325)) Give 5/325 mg Q6HRS PRN ... Q6 PRN GTB PAIN Last administered on 11/19/16 02:58; Admin Dose 1 TAB; Start 11/18/16 at 00:30 Magnesium Oxide (Mag-Ox 400) 400 mg QHS GTB Last administered on 11/22/16 21: 19; Admin Dose 400 MG; Start 11/18/16 at 21:00 Multivitamins (Multivitamin) 30 ml DAILY GTB Last administered on 11/23/16 09: 56; Admin Dose 30 ML; Start 11/18/16 at 09:00 Ondansetron HCl (Zofran Tab) 4 mg Q6H PRN GTB NAUSEA AND/OR VOMITING; Start at 00:30 Lansoprazole (Prevacid) 30 mg DAILY@06 GTB Last administered on 11/23/16 06:01 ; Admin Dose 30 MG; Start 11/18/16 at 06:00 Lorazepam 0.5 mg 0.5 mg Q6H PRN GTB ANXIETY Last administered on 11/18/16 23: 21; Admin Dose 0.5 MG; Start 11/18/16 at 01:00 Ertapenem/Sodium Chloride (Invanz/NS) 100 ml @ 200 mls/hr Q24H IVPB Last administered on 11/22/16 17:44; Admin Dose 200 MLS/HR; Start 11/18/16 at 18:00 Docusate Sodium (Colace Liquid Cup) 100 mg BID GTB Last administered on 09:56; Admin Dose 100 MG; Start 11/20/16 at 21:00 Collagenase (Santyl) 1 applic DAILY TOP Last administered on 11/23/16 09:57; Admin Dose 1 APPLIC; Start 11/21/16 at 17:30 Collagenase (Santyl) 1 applic PRN PRN TOP WOUND CARE; Start 11/21/16 at 17:00 Promethazine HCl/ Codeine (Phenergan/ Codeine) 5 ml Q4H PRN PO COUGH Last administered on 11/23/16 06:08; Admin Dose 5 ML; Start 11/21/16 at 19:00 Ferrous Sulfate (Feosol Liquid Cup) 300 mg BID@06,18 GTB Last administered on 06:00; Admin Dose 300 MG; Start 11/22/16 at 06:00 Hydralazine HCl (Apresoline) 10 mg Q6H PRN IV SBP>170; Start 11/23/16 at 14:30 Assessment/Plan Chief Complaint/Hosp Course Remains comfortable. On examination GENERAL: Chronically ill-appearing gentleman on mechanical ventilation comfortable at rest VITAL SIGNS: per chart NECK: Supple. No JVD or lymphadenopathy. CARDIAC EXAM: S1, S2. No added sounds or murmurs. CHEST: clear bilaterally, No added sounds, rales or wheezes ABDOMEN: Soft, nontender. No guarding or rebound. EXTREMITIES: No cyanosis, clubbing or edema. NEUROLOGIC: Generalized weakness Labs Noted. Assessment 1. 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 Urinary tract infection secondary to Proteus with sepsis now resolved 3. Vent dependent respiratory failure 4. Dysphagia with G-tube 5. ENT findings noted. Recommendations 1. Continue current ventilator settings will need tracheostomy changed XLT. Discussed with respiratory therapy. Tracheostomy has been ordered anticipate arrival in the next few days. 2. Continue antibiotics per infectious diseases consider de-escalation. 3. Continue tube feeding 4. Continue neuro recommendations following recent MRIs. Problems: INDER LONDON MD, [facility] Nov 23, 2016 15:26
[2016-11-23] MEDS ORDERED: EPOETIN 10000 UNITS/ML VIAL (ONCOLOGY) SC SCH (17:00)
--- NOTE | 2016-11-23 17:11 | CONS ---
Date/Time of Note Date/Time of Note DATE: 11/23/16 TIME: 16:52 Assessment/Plan Assessment/Plan Chief Complaint/Hosp Course ID PROGRESS NOTE TOTAL ABX DAY #6 => Ertapenem s/p Vanco IV, Flagyl 24H INTERVAL SUMMARY * No acute changes. Alert. Awake. No Acute Distress. No Fever. * Repeat blood cultures negative. Urine culture growing Proteus mirabilis susceptible to cefotaxime gentamicin and tobramycin * Diagnostics: Chest x-ray on admission revealed no acute infiltrates, LLL ATX * Indwelling's trach back [place] * LABS 11/23/16 0716 11/23/16 0716 PHYSICAL EXAMINATION: GENERAL: VSS, NAD, no fevers HEENT: Unremarkable, NECK: (+)Trach present CHEST: Equal chest rise bilaterally, without dyspnea on observation HEART: Pulse RRR ABDOMEN: Soft EXTREMITIES: Warm SKIN: Warm, dry ID ASSESSMENT: 81 yo M w/Parkinson's dementia, quadriparesis s/p C-spine surgery admitted with : 1. Resolving sepsis 2. Multidrug-resistant Proteus mirabilis UTI 3. Bacteremia = Staph CoNS w/ repeat BCx (-) 4. Chronic respiratory failure -> Trach 5. Dysphagia with G-tube (-)MRSA Nares INVASIVES: * PIV ABX ALLERGIES: PCN CURRENT ABX: #6 => Ertapenem s/p Vanco IV, Flagyl ID RECOMMENDATIONS: 1. Patient w/PCN allergy; hence UTI treatment with Ertapenem -> sepsis has resolved 2. DC Ertapenem after 11/24 dose -- May DC back to SNF OFF ABX after completed 7 day course Ertapenem tomorrow. . Problems: Consultation Date/Type/Reason Admit Date/Time Nov 17, 2016 at 20:56 Initial Consult Date 11/18/16 Type of Consultation: ID Referring Provider: MARCO DOE Exam/Review of Systems Vital Signs Vitals Vital Signs Date Time Temp Pulse Resp B/P Pulse Ox O2 Delivery O2 Flow Rate FiO2 11/23/16 16:36 53 11/23/16 15:01 97.8 18 146/62 100 11/23/16 14:53 30 Intake and Output 11/22/16 11/22/16 11/23/16 15:00 23:00 07:00 Intake Total 2400 ml 1125 ml Output Total 1100 ml 1000 ml Balance 1300 ml 125 ml Results Result Diagram: 11/23/16 0716 11/23/16 0716 Results 24 hrs Laboratory Tests Test 11/23/16 07:16 White Blood Count 4.7 L Red Blood Count 3.00 L Hemoglobin 8.7 L Hematocrit 27.0 L Mean Corpuscular Volume 90.0 Mean Corpuscular Hemoglobin 29.0 Mean Corpuscular Hemoglobin Concent 32.2 Red Cell Distribution Width 15.4 H Platelet Count 230 Mean Platelet Volume 10.6 H Neutrophils % 34.9 L Lymphocytes % 39.4 Monocytes % 17.6 H Eosinophils % 7.5 H Basophils % 0.4 Nucleated Red Blood Cells % 0.0 Neutrophils # 1.6 Lymphocytes # 1.8 Monocytes # 0.8 Eosinophils # 0.4 Basophils # 0.0 Nucleated Red Blood Cells # 0.0 Sodium Level 138 Potassium Level 4.4 Chloride Level 103 Carbon Dioxide Level 27 Anion Gap 12 Blood Urea Nitrogen 27 H Creatinine 0.61 Glucose Level 110 Calcium Level 7.9 L Medications Medications Current Medications Sodium Chloride (1/2 NS) 1,000 ml @ 60 mls/hr [id number] IV Last administered on 11/23/16 12:39; Admin Dose 60 MLS/HR; Start 11/18/16 at 00:00 Acetaminophen (Tylenol Liquid) 650 mg Q6H PRN GTB MILD PAIN LEVEL 1-3 Last administered on 11/21/16 17:17; Admin Dose 650 MG; Start 11/18/16 at 00:30 Amlodipine Besylate (Norvasc) 5 mg DAILY GTB Last administered on 11/23/16 09: 55; Admin Dose 5 MG; Start 11/18/16 at 09:00 Ascorbic Acid (Vitamin C) 500 mg DAILY GTB Last administered on 11/23/16 09:54 ; Admin Dose 500 MG; Start 11/18/16 at 09:00 Benazepril HCl (Lotensin) 40 mg DAILY GTB Last administered on 11/23/16 09:54 ; Admin Dose 40 MG; Start 11/18/16 at 09:00 Carbidopa/Levodopa (Sinemet (25/ 100)) 0.5 tab BID GTB Last administered on 09:56; Admin Dose 0.5 TAB; Start 11/18/16 at 09:00 Clonidine (Catapres) 0.1 mg Q6 PRN GTB ELEVATED BLOOD PRESSURE Last administered on 11/23/16 12:39; Admin Dose 0.1 MG; Start 11/18/16 at 00:30 Eye Lubricant (Artificial Tears Oph) 2 drop QID BOTH EYES Last administered on 11/23/16 12:40; Admin Dose 2 DROP; Start 11/18/16 at 09:00 Epoetin Tree (Epogen (Oncology)) 10,000 units We@17 SC ; Start 11/23/16 at 17:00 Finasteride (Proscar) 5 mg DAILY GTB Last administered on 11/23/16 09:55; Admin Dose 5 MG; Start 11/18/16 at 09:00 Gabapentin (Neurontin Liquid) 300 mg BID GTB Last administered on 11/23/16 09: 59; Admin Dose 300 MG; Start 11/18/16 at 09:00 Acetaminophen/ Hydrocodone Bitart ([place] (5/325)) Give 5/325 mg Q6HRS PRN ... Q6 PRN GTB PAIN Last administered on 11/19/16 02:58; Admin Dose 1 TAB; Start 11/18/16 at 00:30 Magnesium Oxide (Mag-Ox 400) 400 mg QHS GTB Last administered on 11/22/16 21: 19; Admin Dose 400 MG; Start 11/18/16 at 21:00 Multivitamins (Multivitamin) 30 ml DAILY GTB Last administered on 11/23/16 09: 56; Admin Dose 30 ML; Start 11/18/16 at 09:00 Ondansetron HCl (Zofran Tab) 4 mg Q6H PRN GTB NAUSEA AND/OR VOMITING; Start at 00:30 Lansoprazole (Prevacid) 30 mg DAILY@06 GTB Last administered on 11/23/16 06:01 ; Admin Dose 30 MG; Start 11/18/16 at 06:00 Lorazepam 0.5 mg 0.5 mg Q6H PRN GTB ANXIETY Last administered on 11/18/16 23: 21; Admin Dose 0.5 MG; Start 11/18/16 at 01:00 Ertapenem/Sodium Chloride (Invanz/NS) 100 ml @ 200 mls/hr Q24H IVPB Last administered on 11/22/16 17:44; Admin Dose 200 MLS/HR; Start 11/18/16 at 18:00 Docusate Sodium (Colace Liquid Cup) 100 mg BID GTB Last administered on 09:56; Admin Dose 100 MG; Start 11/20/16 at 21:00 Collagenase (Santyl) 1 applic DAILY TOP Last administered on 11/23/16 09:57; Admin Dose 1 APPLIC; Start 11/21/16 at 17:30 Collagenase (Santyl) 1 applic PRN PRN TOP WOUND CARE; Start 11/21/16 at 17:00 Promethazine HCl/ Codeine (Phenergan/ Codeine) 5 ml Q4H PRN PO COUGH Last administered on 11/23/16 06:08; Admin Dose 5 ML; Start 11/21/16 at 19:00 Ferrous Sulfate (Feosol Liquid Cup) 300 mg BID@06,18 GTB Last administered on 06:00; Admin Dose 300 MG; Start 11/22/16 at 06:00 Hydralazine HCl (Apresoline) 10 mg Q6H PRN IV SBP>170; Start 11/23/16 at 14:30 MEAGAN LOPES NP Nov 23, 2016 17:02
[2016-11-23] MEDS: ERTAPENEM SODIUM 1 GM in SOD CHLORIDE 0.9% 100 ML IVPB SCH (18:35)
[2016-11-23] MEDS: MAGNESIUM OXIDE 400 MG TAB GTB SCH (21:52)
[2016-11-24] VITALS (24 sets, daily range): BP systolic 119–160; BP diastolic 52–72; PULSE 50–59; RESP 12–22
[2016-11-24] MEDS: ALBUTEROL 18 GM INHALER INH SCH ×4 (01:10→19:24)
[2016-11-24] MEDS: IPRATROPIUM (HFA) 12.9 GM INHALER INH SCH ×4 (01:10→19:24)
[2016-11-24] MEDS: SOD CHLORIDE 0.45% 1,000 ML IV SCH ×2 (06:00→17:11)
[2016-11-24] MEDS: FERROUS SULFATE 60 MG/ML 5ML CUP GTB SCH ×2 (06:41→18:11)
[2016-11-24] MEDS: LANSOPRAZOLE 30 MG CAP GTB SCH (06:41)
[2016-11-24 07:58] LABS: BASOPHILS % 0.4 % (0.0-2.0); EOSINOPHILS # 0.3 10^3/ul (0.0-0.5); EOSINOPHILS % 4.3 % (0.0-7.0); HEMATOCRIT 27.5 % (42.0-52.0); HEMOGLOBIN 8.8 g/dl (14.0-18.0); LYMPHOCYTES # 2.6 10^3/ul (0.8-2.9); LYMPHOCYTES % 38.7 % (15.0-51.0); MEAN CORPUSCULAR HEMOGLOBIN 28.6 pg (29.0-33.0); MEAN CORPUSCULAR VOLUME 89.3 fl (82.0-101.0); MEAN PLATELET VOLUME 10.7 fl (7.4-10.4); MONOCYTE # 1.1 10^3/ul (0.3-0.9); MONOCYTES % 15.8 % (0.0-11.0); NEUTROPHIL # 2.7 10^3/ul (1.6-7.5); NEUTROPHILS % 40.7 % (39.0-77.0); PLATELET COUNT 241 10^3/UL (140-415); RED BLOOD COUNT 3.08 10^6/ul (4.70-6.10); RED CELL DISTRIBUTION WIDTH 15.6 % (11.5-14.5); WHITE BLOOD COUNT 6.7 10^3/ul (4.8-10.8)
[2016-11-24 08:37] LABS: CALCIUM 7.9 mg/dl (8.4-10.2); CREATININE 0.64 mg/dl (0.61-1.24); POTASSIUM 4.2 mmol/L (3.5-5.1)
[2016-11-24] MEDS: CARBIDOPA/LEVODOPA (25/100) TAB GTB SCH ×2 (09:32→22:06)
[2016-11-24] MEDS: BENAZEPRIL 40 MG TAB GTB SCH (09:32)
[2016-11-24] MEDS: DOCUSATE SODIUM 10 MG/ML (10ML CUP) GTB SCH ×2 (09:32→21:00)
[2016-11-24] MEDS: MULTIVITAMINS 30 ML CUP GTB SCH (09:32)
[2016-11-24] MEDS: FINASTERIDE 5 MG TAB GTB SCH (09:32)
[2016-11-24] MEDS: ARTIFICIAL TEARS 15 ML OPH BOTH EYES SCH ×4 (09:33→22:05)
[2016-11-24] MEDS: COLLAGENASE 30 GM TUBE TOP SCH (09:33)
[2016-11-24] MEDS: ASCORBIC ACID 500 MG TAB GTB SCH (09:33)
[2016-11-24] MEDS: AMLODIPINE 5 MG TAB GTB SCH (09:33)
[2016-11-24] MEDS: GABAPENTIN (50 MG/ML PO SYG) GTB SCH ×2 (11:00→22:06)
--- NOTE | 2016-11-24 11:23 | CONS ---
Date/Time of Note Date/Time of Note DATE: 11/24/16 TIME: 11:22 Consult Date/Type/Reason Admit Date/Time Nov 17, 2016 at 20:56 Initial Consult Date 11/18/16 Type of Consultation: Pulmonary ICU Ordering Provider: MARCO DOE Subjective Patient comfortable this morning sleeping. Objective Vital Signs Date Time Temp Pulse Resp B/P Pulse Ox O2 Delivery O2 Flow Rate FiO2 11/24/16 09:50 30 11/24/16 08:16 57 11/24/16 07:31 98.6 18 142/70 98 Intake and Output 11/23/16 11/23/16 11/24/16 15:00 23:00 07:00 Intake Total 600 ml 1300 ml Output Total 800 ml Balance 600 ml 500 ml Results/Medications Result Diagram: 11/24/1670311/24/16 0704 Results 24 hrs Laboratory Tests Test 11/24/16 07:04 White Blood Count 6.7 # Red Blood Count 3.08 L Hemoglobin 8.8 L Hematocrit 27.5 L Mean Corpuscular Volume 89.3 Mean Corpuscular Hemoglobin 28.6 L Mean Corpuscular Hemoglobin Concent 32.0 Red Cell Distribution Width 15.6 H Platelet Count 241 Mean Platelet Volume 10.7 H Neutrophils % 40.7 Lymphocytes % 38.7 Monocytes % 15.8 H Eosinophils % 4.3 Basophils % 0.4 Nucleated Red Blood Cells % 0.0 Neutrophils # 2.7 Lymphocytes # 2.6 Monocytes # 1.1 H Eosinophils # 0.3 Basophils # 0.0 Nucleated Red Blood Cells # 0.0 Sodium Level 136 Potassium Level 4.2 Chloride Level 104 Carbon Dioxide Level 26 Anion Gap 10 Blood Urea Nitrogen 30 H Creatinine 0.64 Glucose Level 82 Calcium Level 7.9 L Medications Current Medications Sodium Chloride (1/2 NS) 1,000 ml @ 60 mls/hr [id number] IV Last administered on 11/23/16 12:39; Admin Dose 60 MLS/HR; Start 11/18/16 at 00:00 Acetaminophen (Tylenol Liquid) 650 mg Q6H PRN GTB MILD PAIN LEVEL 1-3 Last administered on 11/21/16 17:17; Admin Dose 650 MG; Start 11/18/16 at 00:30 Amlodipine Besylate (Norvasc) 5 mg DAILY GTB Last administered on 11/24/16 09: 33; Admin Dose 5 MG; Start 11/18/16 at 09:00 Ascorbic Acid (Vitamin C) 500 mg DAILY GTB Last administered on 11/24/16 09:33 ; Admin Dose 500 MG; Start 11/18/16 at 09:00 Benazepril HCl (Lotensin) 40 mg DAILY GTB Last administered on 11/24/16 09:32 ; Admin Dose 40 MG; Start 11/18/16 at 09:00 Carbidopa/Levodopa (Sinemet (25/ 100)) 0.5 tab BID GTB Last administered on 09:32; Admin Dose 0.5 TAB; Start 11/18/16 at 09:00 Clonidine (Catapres) 0.1 mg Q6 PRN GTB ELEVATED BLOOD PRESSURE Last administered on 11/23/16 12:39; Admin Dose 0.1 MG; Start 11/18/16 at 00:30 Eye Lubricant (Artificial Tears Oph) 2 drop QID BOTH EYES Last administered on 11/24/16 09:33; Admin Dose 2 DROP; Start 11/18/16 at 09:00 Epoetin Tree (Epogen (Oncology)) 10,000 units We@17 SC Last administered on 18:36; Admin Dose 10,000 UNITS; Start 11/23/16 at 17:00 Finasteride (Proscar) 5 mg DAILY GTB Last administered on 11/24/16 09:32; Admin Dose 5 MG; Start 11/18/16 at 09:00 Gabapentin (Neurontin Liquid) 300 mg BID GTB Last administered on 11/24/16 11: 00; Admin Dose 300 MG; Start 11/18/16 at 09:00 Acetaminophen/ Hydrocodone Bitart ([place] (5/325)) Give 5/325 mg Q6HRS PRN ... Q6 PRN GTB PAIN Last administered on 11/19/16 02:58; Admin Dose 1 TAB; Start 11/18/16 at 00:30 Magnesium Oxide (Mag-Ox 400) 400 mg QHS GTB Last administered on 11/23/16 21: 52; Admin Dose 400 MG; Start 11/18/16 at 21:00 Multivitamins (Multivitamin) 30 ml DAILY GTB Last administered on 11/24/16 09: 32; Admin Dose 30 ML; Start 11/18/16 at 09:00 Ondansetron HCl (Zofran Tab) 4 mg Q6H PRN GTB NAUSEA AND/OR VOMITING; Start at 00:30 Lansoprazole (Prevacid) 30 mg DAILY@06 GTB Last administered on 11/24/16 06:41 ; Admin Dose 30 MG; Start 11/18/16 at 06:00 Lorazepam 0.5 mg 0.5 mg Q6H PRN GTB ANXIETY Last administered on 11/18/16 23: 21; Admin Dose 0.5 MG; Start 11/18/16 at 01:00 Ertapenem/Sodium Chloride (Invanz/NS) 100 ml @ 200 mls/hr Q24H IVPB Last administered on 11/23/16 18:35; Admin Dose 200 MLS/HR; Start 11/18/16 at 18:00 Docusate Sodium (Colace Liquid Cup) 100 mg BID GTB Last administered on 09:32; Admin Dose 100 MG; Start 11/20/16 at 21:00 Collagenase (Santyl) 1 applic DAILY TOP Last administered on 11/24/16 09:33; Admin Dose 1 APPLIC; Start 11/21/16 at 17:30 Collagenase (Santyl) 1 applic PRN PRN TOP WOUND CARE; Start 11/21/16 at 17:00 Promethazine HCl/ Codeine (Phenergan/ Codeine) 5 ml Q4H PRN PO COUGH Last administered on 11/23/16 06:08; Admin Dose 5 ML; Start 11/21/16 at 19:00 Ferrous Sulfate (Feosol Liquid Cup) 300 mg BID@06,18 GTB Last administered on 06:41; Admin Dose 300 MG; Start 11/22/16 at 06:00 Hydralazine HCl (Apresoline) 10 mg Q6H PRN IV SBP>170; Start 11/23/16 at 14:30 Assessment/Plan Chief Complaint/Hosp Course Remains comfortable. Sleeping. On examination GENERAL: Chronically ill-appearing gentleman on mechanical ventilation comfortable at rest VITAL SIGNS: per chart NECK: Supple. No JVD or lymphadenopathy. CARDIAC EXAM: S1, S2. No added sounds or murmurs. CHEST: clear bilaterally, No added sounds, rales or wheezes ABDOMEN: Soft, nontender. No guarding or rebound. EXTREMITIES: No cyanosis, clubbing or edema. NEUROLOGIC: Generalized weakness Labs Noted. Assessment 1. 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 Urinary tract infection secondary to Proteus with sepsis now resolved 3. Vent dependent respiratory failure 4. Dysphagia with G-tube 5. ENT findings noted. Recommendations 1. Continue current ventilator settings will need tracheostomy changed XLT. Discussed with respiratory therapy. Tracheostomy has been ordered anticipate arrival in the next few days. 2. Continue antibiotics per infectious diseases consider de-escalation. 3. Continue tube feeding 4. Continue neuro recommendations following recent MRIs. Problems: INDER LONDON MD, [facility] Nov 24, 2016 11:23
--- NOTE | 2016-11-24 12:14 | PN ---
Date/Time of Note Date/Time of Note DATE: 11/24/16 TIME: 12:14 Assessment/Plan VTE Prophylaxis VTE Prophylaxis Intervention: other Lines/Catheters IV Catheter Type (from [facility]): Peripheral IV Urinary Cath still in place: Yes Reason Cath still needed: skin wounds contaminated by urine Assessment/Plan Chief Complaint/Hosp Course - Sepsis with bacteremia. Dr. Shine is following in ID consultation. Continue antibiotics per ID. - Acute cystitis with MDR Proteus mirabilis. - Possible tracheobronchitis - Sinus bradycardia, Dr. Chadwick is following and cardiology consultation. - Hyperkalemia, resolved - Status post cervical laminectomy for cervical and upper thoracic stenosis - History of cystic mass - Ventilator dependent respiratory failure with tracheostomy,Dr. Rivera is following patient in pulmonology consultation. - Left lower extremity weakness, No acute process per imaging. Dr. Fulton is neurology consultation is appreciated. - Dysphagia with G-tube. - Parkinson's disease, continue Sinemet. - Hypertension, continue benazepril. - Sacral decubitus stage III, continue offloading, nutrition optimization. Problems: Subjective 24 Hr Interval Summary Free Text/Dictation Patient complain of left hip pain Exam/Review of Systems Vital Signs Vitals Vital Signs Date Time Temp Pulse Resp B/P Pulse Ox O2 Delivery O2 Flow Rate FiO2 11/24/16 12:11 55 11/24/16 11:10 17 98 30 11/24/16 07:31 98.6 142/70 Intake and Output 11/23/16 11/23/16 11/24/16 14:59 22:59 06:59 Intake Total 600 ml 1300 ml Output Total 800 ml Balance 600 ml 500 ml Exam Constitutional: well developed Head: atraumatic, normocephalic Neck: supple Respiratory: diminished breath sounds Cardiovascular: regular rate and rhythm Gastrointestinal: non-tender, soft Extremities: normal pulses Results Result Diagram: 11/24/16 0704 11/24/16 0704 Results 24 hrs Laboratory Tests Test 11/24/16 07:04 White Blood Count 6.7 # Red Blood Count 3.08 L Hemoglobin 8.8 L Hematocrit 27.5 L Mean Corpuscular Volume 89.3 Mean Corpuscular Hemoglobin 28.6 L Mean Corpuscular Hemoglobin Concent 32.0 Red Cell Distribution Width 15.6 H Platelet Count 241 Mean Platelet Volume 10.7 H Neutrophils % 40.7 Lymphocytes % 38.7 Monocytes % 15.8 H Eosinophils % 4.3 Basophils % 0.4 Nucleated Red Blood Cells % 0.0 Neutrophils # 2.7 Lymphocytes # 2.6 Monocytes # 1.1 H Eosinophils # 0.3 Basophils # 0.0 Nucleated Red Blood Cells # 0.0 Sodium Level 136 Potassium Level 4.2 Chloride Level 104 Carbon Dioxide Level 26 Anion Gap 10 Blood Urea Nitrogen 30 H Creatinine 0.64 Glucose Level 82 Calcium Level 7.9 L Medications Medications Current Medications Sodium Chloride (1/2 NS) 1,000 ml @ 60 mls/hr [id number] IV Last administered on 11/23/16 12:39; Admin Dose 60 MLS/HR; Start 11/18/16 at 00:00 Acetaminophen (Tylenol Liquid) 650 mg Q6H PRN GTB MILD PAIN LEVEL 1-3 Last administered on 11/21/16 17:17; Admin Dose 650 MG; Start 11/18/16 at 00:30 Amlodipine Besylate (Norvasc) 5 mg DAILY GTB Last administered on 11/24/16 09: 33; Admin Dose 5 MG; Start 11/18/16 at 09:00 Ascorbic Acid (Vitamin C) 500 mg DAILY GTB Last administered on 11/24/16 09:33 ; Admin Dose 500 MG; Start 11/18/16 at 09:00 Benazepril HCl (Lotensin) 40 mg DAILY GTB Last administered on 11/24/16 09:32 ; Admin Dose 40 MG; Start 11/18/16 at 09:00 Carbidopa/Levodopa (Sinemet (25/ 100)) 0.5 tab BID GTB Last administered on 09:32; Admin Dose 0.5 TAB; Start 11/18/16 at 09:00 Clonidine (Catapres) 0.1 mg Q6 PRN GTB ELEVATED BLOOD PRESSURE Last administered on 11/23/16 12:39; Admin Dose 0.1 MG; Start 11/18/16 at 00:30 Eye Lubricant (Artificial Tears Oph) 2 drop QID BOTH EYES Last administered on 11/24/16 09:33; Admin Dose 2 DROP; Start 11/18/16 at 09:00 Epoetin Tree (Epogen (Oncology)) 10,000 units We@17 SC Last administered on 18:36; Admin Dose 10,000 UNITS; Start 11/23/16 at 17:00 Finasteride (Proscar) 5 mg DAILY GTB Last administered on 11/24/16 09:32; Admin Dose 5 MG; Start 11/18/16 at 09:00 Gabapentin (Neurontin Liquid) 300 mg BID GTB Last administered on 11/24/16 11: 00; Admin Dose 300 MG; Start 11/18/16 at 09:00 Acetaminophen/ Hydrocodone Bitart ([place] (5/325)) Give 5/325 mg Q6HRS PRN ... Q6 PRN GTB PAIN Last administered on 11/19/16 02:58; Admin Dose 1 TAB; Start 11/18/16 at 00:30 Magnesium Oxide (Mag-Ox 400) 400 mg QHS GTB Last administered on 11/23/16 21: 52; Admin Dose 400 MG; Start 11/18/16 at 21:00 Multivitamins (Multivitamin) 30 ml DAILY GTB Last administered on 11/24/16 09: 32; Admin Dose 30 ML; Start 11/18/16 at 09:00 Ondansetron HCl (Zofran Tab) 4 mg Q6H PRN GTB NAUSEA AND/OR VOMITING; Start at 00:30 Lansoprazole (Prevacid) 30 mg DAILY@06 GTB Last administered on 11/24/16 06:41 ; Admin Dose 30 MG; Start 11/18/16 at 06:00 Lorazepam 0.5 mg 0.5 mg Q6H PRN GTB ANXIETY Last administered on 11/18/16 23: 21; Admin Dose 0.5 MG; Start 11/18/16 at 01:00 Ertapenem/Sodium Chloride (Invanz/NS) 100 ml @ 200 mls/hr Q24H IVPB Last administered on 11/23/16 18:35; Admin Dose 200 MLS/HR; Start 11/18/16 at 18:00 Docusate Sodium (Colace Liquid Cup) 100 mg BID GTB Last administered on 09:32; Admin Dose 100 MG; Start 11/20/16 at 21:00 Collagenase (Santyl) 1 applic DAILY TOP Last administered on 11/24/16 09:33; Admin Dose 1 APPLIC; Start 11/21/16 at 17:30 Collagenase (Santyl) 1 applic PRN PRN TOP WOUND CARE; Start 11/21/16 at 17:00 Promethazine HCl/ Codeine (Phenergan/ Codeine) 5 ml Q4H PRN PO COUGH Last administered on 11/23/16 06:08; Admin Dose 5 ML; Start 11/21/16 at 19:00 Ferrous Sulfate (Feosol Liquid Cup) 300 mg BID@06,18 GTB Last administered on 06:41; Admin Dose 300 MG; Start 11/22/16 at 06:00 Hydralazine HCl (Apresoline) 10 mg Q6H PRN IV SBP>170; Start 11/23/16 at 14:30 JAYME WALL Nov 24, 2016 12:14
--- NOTE | 2016-11-24 13:36 | CONS ---
Date/Time of Note Date/Time of Note DATE: 11/24/16 TIME: 13:33 Assessment/Plan Assessment/Plan Chief Complaint/Hosp Course IMP: 1.Bradycardia-NL TSH/negative trop x3. Stable with actually elevated BP 2.UTI 3.Resp failure s/p trach 4.dysphagia s/p G tube 5.fever 6.parkinsons 7. HTN-reasonable Recc: -Tele -serial ecg's -Contineu norvasc /benazepril -Continue abx's and cx data -Continue sinemet -Follow volume status closely Problems: Consultation Date/Type/Reason Admit Date/Time Nov 17, 2016 at 20:56 Initial Consult Date 11/18/16 Type of Consultation: cardiology Reason for Consultation bradycardia Referring Provider: MARCO DOE Exam/Review of Systems Vital Signs Vitals Vital Signs Date Time Temp Pulse Resp B/P Pulse Ox O2 Delivery O2 Flow Rate FiO2 11/24/16 12:11 55 11/24/16 11:10 17 98 30 11/24/16 07:31 98.6 142/70 Intake and Output 11/23/16 11/23/16 11/24/16 15:00 23:00 07:00 Intake Total 600 ml 1300 ml Output Total 800 ml Balance 600 ml 500 ml Exam Review of Systems: CONSTITUTIONAL: No fevers, chills. PULMONARY: No sob CARDIOVASCULAR: No chest pain/palpitations GASTROINTESTINAL: No nausea/vomiting. GENITOURINARY: No hematuria/dysuria. MUSCULOSKELETAL: No myagias/arthalgias. PSYCHIATRIC: The patient denies depression. NEUROLOGIC: No weakness Constitutional: alert Psych: no complaints Head: normocephalic ENMT: mucosa pink and moist Neck: other (trached), supple Respiratory: diminished breath sounds (at bases/B) Cardiovascular: regular rate and rhythm Gastrointestinal: non-tender, soft Extremities: edema (none) Neurological: other (No focal deficits) Results Result Diagram: 11/24/16 0711/24/16 07 Results 24 hrs Laboratory Tests Test 11/24/16 07:04 White Blood Count 6.7 # Red Blood Count 3.08 L Hemoglobin 8.8 L Hematocrit 27.5 L Mean Corpuscular Volume 89.3 Mean Corpuscular Hemoglobin 28.6 L Mean Corpuscular Hemoglobin Concent 32.0 Red Cell Distribution Width 15.6 H Platelet Count 241 Mean Platelet Volume 10.7 H Neutrophils % 40.7 Lymphocytes % 38.7 Monocytes % 15.8 H Eosinophils % 4.3 Basophils % 0.4 Nucleated Red Blood Cells % 0.0 Neutrophils # 2.7 Lymphocytes # 2.6 Monocytes # 1.1 H Eosinophils # 0.3 Basophils # 0.0 Nucleated Red Blood Cells # 0.0 Sodium Level 136 Potassium Level 4.2 Chloride Level 104 Carbon Dioxide Level 26 Anion Gap 10 Blood Urea Nitrogen 30 H Creatinine 0.64 Glucose Level 82 Calcium Level 7.9 L Medications Medications Current Medications Sodium Chloride (1/2 NS) 1,000 ml @ 60 mls/hr [id number] IV Last administered on 11/23/16 12:39; Admin Dose 60 MLS/HR; Start 11/18/16 at 00:00 Acetaminophen (Tylenol Liquid) 650 mg Q6H PRN GTB MILD PAIN LEVEL 1-3 Last administered on 11/21/16 17:17; Admin Dose 650 MG; Start 11/18/16 at 00:30 Amlodipine Besylate (Norvasc) 5 mg DAILY GTB Last administered on 11/24/16 09: 33; Admin Dose 5 MG; Start 11/18/16 at 09:00 Ascorbic Acid (Vitamin C) 500 mg DAILY GTB Last administered on 11/24/16 09:33 ; Admin Dose 500 MG; Start 11/18/16 at 09:00 Benazepril HCl (Lotensin) 40 mg DAILY GTB Last administered on 11/24/16 09:32 ; Admin Dose 40 MG; Start 11/18/16 at 09:00 Carbidopa/Levodopa (Sinemet (25/ 100)) 0.5 tab BID GTB Last administered on 09:32; Admin Dose 0.5 TAB; Start 11/18/16 at 09:00 Clonidine (Catapres) 0.1 mg Q6 PRN GTB ELEVATED BLOOD PRESSURE Last administered on 11/23/16 12:39; Admin Dose 0.1 MG; Start 11/18/16 at 00:30 Eye Lubricant (Artificial Tears Oph) 2 drop QID BOTH EYES Last administered on 11/24/16 12:36; Admin Dose 2 DROP; Start 11/18/16 at 09:00 Epoetin Tree (Epogen (Oncology)) 10,000 units We@17 SC Last administered on 18:36; Admin Dose 10,000 UNITS; Start 11/23/16 at 17:00 Finasteride (Proscar) 5 mg DAILY GTB Last administered on 11/24/16 09:32; Admin Dose 5 MG; Start 11/18/16 at 09:00 Gabapentin (Neurontin Liquid) 300 mg BID GTB Last administered on 11/24/16 11: 00; Admin Dose 300 MG; Start 11/18/16 at 09:00 Acetaminophen/ Hydrocodone Bitart ([place] (5/325)) Give 5/325 mg Q6HRS PRN ... Q6 PRN GTB PAIN Last administered on 11/19/16 02:58; Admin Dose 1 TAB; Start 11/18/16 at 00:30 Magnesium Oxide (Mag-Ox 400) 400 mg QHS GTB Last administered on 11/23/16 21: 52; Admin Dose 400 MG; Start 11/18/16 at 21:00 Multivitamins (Multivitamin) 30 ml DAILY GTB Last administered on 11/24/16 09: 32; Admin Dose 30 ML; Start 11/18/16 at 09:00 Ondansetron HCl (Zofran Tab) 4 mg Q6H PRN GTB NAUSEA AND/OR VOMITING; Start at 00:30 Lansoprazole (Prevacid) 30 mg DAILY@06 GTB Last administered on 11/24/16 06:41 ; Admin Dose 30 MG; Start 11/18/16 at 06:00 Lorazepam 0.5 mg 0.5 mg Q6H PRN GTB ANXIETY Last administered on 11/18/16 23: 21; Admin Dose 0.5 MG; Start 11/18/16 at 01:00 Ertapenem/Sodium Chloride (Invanz/NS) 100 ml @ 200 mls/hr Q24H IVPB Last administered on 11/23/16 18:35; Admin Dose 200 MLS/HR; Start 11/18/16 at 18:00 Docusate Sodium (Colace Liquid Cup) 100 mg BID GTB Last administered on 09:32; Admin Dose 100 MG; Start 11/20/16 at 21:00 Collagenase (Santyl) 1 applic DAILY TOP Last administered on 11/24/16 09:33; Admin Dose 1 APPLIC; Start 11/21/16 at 17:30 Collagenase (Santyl) 1 applic PRN PRN TOP WOUND CARE; Start 11/21/16 at 17:00 Promethazine HCl/ Codeine (Phenergan/ Codeine) 5 ml Q4H PRN PO COUGH Last administered on 11/23/16 06:08; Admin Dose 5 ML; Start 11/21/16 at 19:00 Ferrous Sulfate (Feosol Liquid Cup) 300 mg BID@06,18 GTB Last administered on 06:41; Admin Dose 300 MG; Start 11/22/16 at 06:00 Hydralazine HCl (Apresoline) 10 mg Q6H PRN IV SBP>170; Start 11/23/16 at 14:30 REMBERTO PÉREZ Nov 24, 2016 13:36
[2016-11-24] MEDS: ERTAPENEM SODIUM 1 GM in SOD CHLORIDE 0.9% 100 ML IVPB SCH (18:12)
--- NOTE | 2016-11-24 19:26 | CONS ---
Date/Time of Note Date/Time of Note DATE: 11/24/16 TIME: 19:24 Assessment/Plan Assessment/Plan Chief Complaint/Hosp Course ID PROGRESS NOTE TOTAL ABX DAY #7 => Ertapenem s/p Vanco IV, Flagyl 24H INTERVAL SUMMARY * Doing well, no fevers, working with PTX with good result, no complaints offered. PHYSICAL EXAMINATION: GENERAL: VSS, NAD, no fevers HEENT: Unremarkable, NECK: (+)Trach present CHEST: Equal chest rise bilaterally, without dyspnea on observation HEART: Pulse RRR ABDOMEN: Soft EXTREMITIES: Warm SKIN: Warm, dry ID ASSESSMENT: 81 yo M w/Parkinson's dementia, quadriparesis s/p C-spine surgery admitted with : 1. Resolving sepsis 2. Multidrug-resistant Proteus mirabilis UTI 3. Bacteremia = Staph CoNS w/ repeat BCx (-) 4. Chronic respiratory failure -> Trach 5. Dysphagia with G-tube (-)MRSA Nares INVASIVES: * PIV ABX ALLERGIES: PCN CURRENT ABX: #7 => Ertapenem s/p Vanco IV, Flagyl ID RECOMMENDATIONS: 1. Patient w/PCN allergy; hence UTI treatment with Ertapenem -> sepsis has resolved 2. DC Ertapenem after 11/24 dose -- May DC back to SNF OFF ABX after completed 7 day course Ertapenem when cleared by primary . Problems: Consultation Date/Type/Reason Admit Date/Time Nov 17, 2016 at 20:56 Initial Consult Date 11/18/16 Type of Consultation: ID Referring Provider: MARCO DOE Exam/Review of Systems Vital Signs Vitals Vital Signs Date Time Temp Pulse Resp B/P Pulse Ox O2 Delivery O2 Flow Rate FiO2 11/24/16 17:10 61 16 98 30 11/24/16 15:03 97.8 143/63 Intake and Output 11/23/16 11/23/16 11/24/16 15:00 23:00 07:00 Intake Total 600 ml 1300 ml Output Total 800 ml Balance 600 ml 500 ml Results Result Diagram: 11/24/16 0704 11/24/1604 Results 24 hrs Laboratory Tests Test 11/24/16 07:04 White Blood Count 6.7 # Red Blood Count 3.08 L Hemoglobin 8.8 L Hematocrit 27.5 L Mean Corpuscular Volume 89.3 Mean Corpuscular Hemoglobin 28.6 L Mean Corpuscular Hemoglobin Concent 32.0 Red Cell Distribution Width 15.6 H Platelet Count 241 Mean Platelet Volume 10.7 H Neutrophils % 40.7 Lymphocytes % 38.7 Monocytes % 15.8 H Eosinophils % 4.3 Basophils % 0.4 Nucleated Red Blood Cells % 0.0 Neutrophils # 2.7 Lymphocytes # 2.6 Monocytes # 1.1 H Eosinophils # 0.3 Basophils # 0.0 Nucleated Red Blood Cells # 0.0 Sodium Level 136 Potassium Level 4.2 Chloride Level 104 Carbon Dioxide Level 26 Anion Gap 10 Blood Urea Nitrogen 30 H Creatinine 0.64 Glucose Level 82 Calcium Level 7.9 L Medications Medications Current Medications Sodium Chloride (1/2 NS) 1,000 ml @ 60 mls/hr [id number] IV Last administered on 11/24/16 17:11; Admin Dose 60 MLS/HR; Start 11/18/16 at 00:00 Acetaminophen (Tylenol Liquid) 650 mg Q6H PRN GTB MILD PAIN LEVEL 1-3 Last administered on 11/21/16 17:17; Admin Dose 650 MG; Start 11/18/16 at 00:30 Amlodipine Besylate (Norvasc) 5 mg DAILY GTB Last administered on 11/24/16 09: 33; Admin Dose 5 MG; Start 11/18/16 at 09:00 Ascorbic Acid (Vitamin C) 500 mg DAILY GTB Last administered on 11/24/16 09:33 ; Admin Dose 500 MG; Start 11/18/16 at 09:00 Benazepril HCl (Lotensin) 40 mg DAILY GTB Last administered on 11/24/16 09:32 ; Admin Dose 40 MG; Start 11/18/16 at 09:00 Carbidopa/Levodopa (Sinemet (25/ 100)) 0.5 tab BID GTB Last administered on 09:32; Admin Dose 0.5 TAB; Start 11/18/16 at 09:00 Clonidine (Catapres) 0.1 mg Q6 PRN GTB ELEVATED BLOOD PRESSURE Last administered on 11/23/16 12:39; Admin Dose 0.1 MG; Start 11/18/16 at 00:30 Eye Lubricant (Artificial Tears Oph) 2 drop QID BOTH EYES Last administered on 11/24/16 17:11; Admin Dose 2 DROP; Start 11/18/16 at 09:00 Epoetin Tree (Epogen (Oncology)) 10,000 units We@17 SC Last administered on 18:36; Admin Dose 10,000 UNITS; Start 11/23/16 at 17:00 Finasteride (Proscar) 5 mg DAILY GTB Last administered on 11/24/16 09:32; Admin Dose 5 MG; Start 11/18/16 at 09:00 Gabapentin (Neurontin Liquid) 300 mg BID GTB Last administered on 11/24/16 11: 00; Admin Dose 300 MG; Start 11/18/16 at 09:00 Acetaminophen/ Hydrocodone Bitart ([place] (5/325)) Give 5/325 mg Q6HRS PRN ... Q6 PRN GTB PAIN Last administered on 11/19/16 02:58; Admin Dose 1 TAB; Start 11/18/16 at 00:30 Magnesium Oxide (Mag-Ox 400) 400 mg QHS GTB Last administered on 11/23/16 21: 52; Admin Dose 400 MG; Start 11/18/16 at 21:00 Multivitamins (Multivitamin) 30 ml DAILY GTB Last administered on 11/24/16 09: 32; Admin Dose 30 ML; Start 11/18/16 at 09:00 Ondansetron HCl (Zofran Tab) 4 mg Q6H PRN GTB NAUSEA AND/OR VOMITING; Start at 00:30 Lansoprazole (Prevacid) 30 mg DAILY@06 GTB Last administered on 11/24/16 06:41 ; Admin Dose 30 MG; Start 11/18/16 at 06:00 Lorazepam 0.5 mg 0.5 mg Q6H PRN GTB ANXIETY Last administered on 11/18/16 23: 21; Admin Dose 0.5 MG; Start 11/18/16 at 01:00 Ertapenem/Sodium Chloride (Invanz/NS) 100 ml @ 200 mls/hr Q24H IVPB Last administered on 11/24/16 18:12; Admin Dose 200 MLS/HR; Start 11/18/16 at 18:00 Docusate Sodium (Colace Liquid Cup) 100 mg BID GTB Last administered on 09:32; Admin Dose 100 MG; Start 11/20/16 at 21:00 Collagenase (Santyl) 1 applic DAILY TOP Last administered on 11/24/16 09:33; Admin Dose 1 APPLIC; Start 11/21/16 at 17:30 Collagenase (Santyl) 1 applic PRN PRN TOP WOUND CARE; Start 11/21/16 at 17:00 Promethazine HCl/ Codeine (Phenergan/ Codeine) 5 ml Q4H PRN PO COUGH Last administered on 11/23/16 06:08; Admin Dose 5 ML; Start 11/21/16 at 19:00 Ferrous Sulfate (Feosol Liquid Cup) 300 mg BID@,18 GTB Last administered on 18:11; Admin Dose 300 MG; Start 11/22/16 at 06:00 Hydralazine HCl (Apresoline) 10 mg Q6H PRN IV SBP>170; Start 11/23/16 at 14:30 MEAGAN LOPES NP Nov 24, 2016 19:26
[2016-11-24] MEDS: MAGNESIUM OXIDE 400 MG TAB GTB SCH (22:06)
[2016-11-25] VITALS (23 sets, daily range): BP systolic 126–163; BP diastolic 55–78; PULSE 48–55; RESP 15–26
[2016-11-25] MEDS: ALBUTEROL 18 GM INHALER INH SCH ×4 (01:09→19:40)
[2016-11-25] MEDS: IPRATROPIUM (HFA) 12.9 GM INHALER INH SCH ×4 (01:09→19:40)
[2016-11-25] MEDS: FERROUS SULFATE 60 MG/ML 5ML CUP GTB SCH ×2 (05:33→17:40)
[2016-11-25] MEDS: PROMETHAZINE/CODEINE 5ML CUP PO PRN ×2 (05:33→23:09)
[2016-11-25] MEDS: LANSOPRAZOLE 30 MG CAP GTB SCH (05:33)
--- NOTE | 2016-11-25 07:31 | PN ---
Date/Time of Note Date/Time of Note DATE: 11/25/16 TIME: 07:31 Assessment/Plan VTE Prophylaxis VTE Prophylaxis Intervention: other Lines/Catheters IV Catheter Type (from Nrs): Peripheral IV Urinary Cath still in place: Yes Reason Cath still needed: skin wounds contaminated by urine Assessment/Plan Chief Complaint/Hosp Course - Sepsis with bacteremia. Dr. Shine is following in ID consultation. Continue antibiotics per ID. - Acute cystitis with MDR Proteus mirabilis. - Possible tracheobronchitis - Sinus bradycardia, Dr. Chadwick is following and cardiology consultation. - Hyperkalemia, resolved - Status post cervical laminectomy for cervical and upper thoracic stenosis - History of cystic mass - Ventilator dependent respiratory failure with tracheostomy,Dr. Rivera is following patient in pulmonology consultation. - Left lower extremity weakness, No acute process per imaging. Dr. Fulton is neurology consultation is appreciated. - Dysphagia with G-tube. - Parkinson's disease, continue Sinemet. - Hypertension, continue benazepril. - Sacral decubitus stage III, continue offloading, nutrition optimization. Problems: Subjective 24 Hr Interval Summary Free Text/Dictation Patient resting, comfortably Exam/Review of Systems Vital Signs Vitals Vital Signs Date Time Temp Pulse Resp B/P Pulse Ox O2 Delivery O2 Flow Rate FiO2 11/25/16 05:16 54 25 99 30 11/25/16 03:45 98.1 146/65 Intake and Output 11/24/16 11/24/16 11/25/16 15:00 23:00 07:00 Intake Total 1090 ml 2020 ml Output Total 900 ml 800 ml Balance 190 ml 1220 ml Exam Constitutional: well developed Head: atraumatic, normocephalic Neck: supple Respiratory: clear to auscultation Cardiovascular: regular rate and rhythm Gastrointestinal: non-tender, soft Extremities: normal pulses Results Result Diagram: 11/24/16 0704 11/24/16 0704 Results 24 hrs Laboratory Tests Test 11/24/16 20:50 Bedside Glucose 101 Medications Medications Current Medications Sodium Chloride (1/2 NS) 1,000 ml @ 60 mls/hr [id number] IV Last administered on 11/24/16t 17:11; Admin Dose 60 MLS/HR; Start 11/18/16 at 00:00 Acetaminophen (Tylenol Liquid) 650 mg Q6H PRN GTB MILD PAIN LEVEL 1-3 Last administered on 11/21/16 17:17; Admin Dose 650 MG; Start 11/18/16 at 00:30 Amlodipine Besylate (Norvasc) 5 mg DAILY GTB Last administered on 11/24/16 09: 33; Admin Dose 5 MG; Start 11/18/16 at 09:00 Ascorbic Acid (Vitamin C) 500 mg DAILY GTB Last administered on 11/24/16 09:33 ; Admin Dose 500 MG; Start 11/18/16 at 09:00 Benazepril HCl (Lotensin) 40 mg DAILY GTB Last administered on 11/24/16 09:32 ; Admin Dose 40 MG; Start 11/18/16 at 09:00 Carbidopa/Levodopa (Sinemet (/ )) 0.5 tab BID GTB Last administered on 22:06; Admin Dose 0.5 TAB; Start 11/18/16 at 09:00 Clonidine (Catapres) 0.1 mg Q6 PRN GTB ELEVATED BLOOD PRESSURE Last administered on 11/23/16 12:39; Admin Dose 0.1 MG; Start 11/18/16 at 00:30 Eye Lubricant (Artificial Tears Oph) 2 drop QID BOTH EYES Last administered on 11/24/16 22:05; Admin Dose 2 DROP; Start 11/18/16 at 09:00 Epoetin Tree (Epogen (Oncology)) 10,000 units We@17 SC Last administered on 18:36; Admin Dose 10,000 UNITS; Start 11/23/16 at 17:00 Finasteride (Proscar) 5 mg DAILY GTB Last administered on 11/24/16 09:32; Admin Dose 5 MG; Start 11/18/16 at 09:00 Gabapentin (Neurontin Liquid) 300 mg BID GTB Last administered on 11/24/16 22: 06; Admin Dose 300 MG; Start 11/18/16 at 09:00 Acetaminophen/ Hydrocodone Bitart ([place] (5/325)) Give 5/325 mg Q6HRS PRN ... Q6 PRN GTB PAIN Last administered on 11/19/16 02:58; Admin Dose 1 TAB; Start 11/18/16 at 00:30 Magnesium Oxide (Mag-Ox 400) 400 mg QHS GTB Last administered on 11/24/16 22: 06; Admin Dose 400 MG; Start 11/18/16 at 21:00 Multivitamins (Multivitamin) 30 ml DAILY GTB Last administered on 11/24/16 09: 32; Admin Dose 30 ML; Start 11/18/16 at 09:00 Ondansetron HCl (Zofran Tab) 4 mg Q6H PRN GTB NAUSEA AND/OR VOMITING; Start at 00:30 Lansoprazole (Prevacid) 30 mg DAILY@06 GTB Last administered on 11/25/16 05:33 ; Admin Dose 30 MG; Start 11/18/16 at 06:00 Lorazepam 0.5 mg 0.5 mg Q6H PRN GTB ANXIETY Last administered on 11/18/16 23: 21; Admin Dose 0.5 MG; Start 11/18/16 at 01:00 Ertapenem/Sodium Chloride (Invanz/NS) 100 ml @ 200 mls/hr Q24H IVPB Last administered on 11/24/16 18:12; Admin Dose 200 MLS/HR; Start 11/18/16 at 18:00 Docusate Sodium (Colace Liquid Cup) 100 mg BID GTB Last administered on 09:32; Admin Dose 100 MG; Start 11/20/16 at 21:00 Collagenase (Santyl) 1 applic DAILY TOP Last administered on 11/24/16 09:33; Admin Dose 1 APPLIC; Start 11/21/16 at 17:30 Collagenase (Santyl) 1 applic PRN PRN TOP WOUND CARE; Start 11/21/16 at 17:00 Promethazine HCl/ Codeine (Phenergan/ Codeine) 5 ml Q4H PRN PO COUGH Last administered on 11/25/16 05:33; Admin Dose 5 ML; Start 11/21/16 at 19:00 Ferrous Sulfate (Feosol Liquid Cup) 300 mg BID@,18 GTB Last administered on 05:33; Admin Dose 300 MG; Start 11/22/16 at 06:00 Hydralazine HCl (Apresoline) 10 mg Q6H PRN IV SBP>170; Start 11/23/16 at 14:30 JAYME WALL Nov 25, 2016 07:31
[2016-11-25] MEDS: GABAPENTIN (50 MG/ML PO SYG) GTB SCH ×2 (08:57→23:12)
[2016-11-25] MEDS: BENAZEPRIL 40 MG TAB GTB SCH (08:57)
[2016-11-25] MEDS: MULTIVITAMINS 30 ML CUP GTB SCH (08:57)
[2016-11-25] MEDS: ASCORBIC ACID 500 MG TAB GTB SCH (08:57)
[2016-11-25] MEDS: CARBIDOPA/LEVODOPA (25/100) TAB GTB SCH ×2 (08:57→23:10)
[2016-11-25] MEDS: FINASTERIDE 5 MG TAB GTB SCH (08:57)
[2016-11-25] MEDS: COLLAGENASE 30 GM TUBE TOP SCH (08:58)
[2016-11-25] MEDS: AMLODIPINE 5 MG TAB GTB SCH (08:58)
[2016-11-25] MEDS: ARTIFICIAL TEARS 15 ML OPH BOTH EYES SCH ×4 (08:58→23:10)
[2016-11-25] MEDS: DOCUSATE SODIUM 10 MG/ML (10ML CUP) GTB SCH ×2 (08:59→21:00)
[2016-11-25] MEDS: SOD CHLORIDE 0.45% 1,000 ML IV SCH (11:19)
--- NOTE | 2016-11-25 13:30 | CONS ---
Date/Time of Note Date/Time of Note DATE: 11/25/16 TIME: 13:28 Assessment/Plan Assessment/Plan Chief Complaint/Hosp Course IMP: 1.Bradycardia-NL TSH/negative trop x3. Stable BP. No definite indication for PPM at this time 2.UTI 3.Resp failure s/p trach 4.dysphagia s/p G tube 5.fever 6.parkinsons 7. HTN-reasonable Recc: -Tele -serial ecg's -Contineu norvasc /benazepril -Continue abx's and cx data -Continue sinemet -Follow volume status closely Problems: Consultation Date/Type/Reason Admit Date/Time Nov 17, 2016 at 20:56 Initial Consult Date 11/18/16 Type of Consultation: cardiology Reason for Consultation bradycardia Referring Provider: MARCO DOE Exam/Review of Systems Vital Signs Vitals Vital Signs Date Time Temp Pulse Resp B/P Pulse Ox O2 Delivery O2 Flow Rate FiO2 11/25/16 12:47 55 11/25/16 11:05 26 99 30 11/25/16 11:00 97.8 134/60 Intake and Output 11/24/16 11/24/16 11/25/16 15:00 23:00 07:00 Intake Total 1090 ml 2020 ml Output Total 900 ml 800 ml Balance 190 ml 1220 ml Exam Review of Systems: CONSTITUTIONAL: No fevers, chills. PULMONARY: traced CARDIOVASCULAR: No obvious chest pain/palpitations GASTROINTESTINAL: No nausea/vomiting. GENITOURINARY: No hematuria/dysuria. MUSCULOSKELETAL: No obvious myagias/arthalgias. PSYCHIATRIC: The patient denies depression. NEUROLOGIC: encephalopathic Constitutional: other (Encephalopathic) Psych: no complaints Head: normocephalic ENMT: mucosa pink and moist Neck: jvd (9 cm water), other (trached), supple Respiratory: diminished breath sounds (at bases/B) Cardiovascular: regular rate and rhythm Gastrointestinal: non-tender, other (G tube), soft Musculoskeletal: muscle weakness (generalized) Extremities: edema (none) Neurological: lethargic, other (encephalopathic) Results Result Diagram: 11/24/16 0704 11/24/16 0704 Results 24 hrs Laboratory Tests Test 11/24/16 20:50 Bedside Glucose 101 Medications Medications Current Medications Sodium Chloride (1/2 NS) 1,000 ml @ 60 mls/hr [id number] IV Last administered on 11/25/16 11:19; Admin Dose 60 MLS/HR; Start 11/18/16 at 00:00 Acetaminophen (Tylenol Liquid) 650 mg Q6H PRN GTB MILD PAIN LEVEL 1-3 Last administered on 11/21/16 17:17; Admin Dose 650 MG; Start 11/18/16 at 00:30 Amlodipine Besylate (Norvasc) 5 mg DAILY GTB Last administered on 11/25/16 08: 58; Admin Dose 5 MG; Start 11/18/16 at 09:00 Ascorbic Acid (Vitamin C) 500 mg DAILY GTB Last administered on 11/25/16 08:57 ; Admin Dose 500 MG; Start 11/18/16 at 09:00 Benazepril HCl (Lotensin) 40 mg DAILY GTB Last administered on 11/25/16 08:57 ; Admin Dose 40 MG; Start 11/18/16 at 09:00 Carbidopa/Levodopa (Sinemet (25/ 100)) 0.5 tab BID GTB Last administered on 08:57; Admin Dose 0.5 TAB; Start 11/18/16 at 09:00 Clonidine (Catapres) 0.1 mg Q6 PRN GTB ELEVATED BLOOD PRESSURE Last administered on 11/23/16 12:39; Admin Dose 0.1 MG; Start 11/18/16 at 00:30 Eye Lubricant (Artificial Tears Oph) 2 drop QID BOTH EYES Last administered on 11/25/16 12:44; Admin Dose 2 DROP; Start 11/18/16 at 09:00 Epoetin Tree (Epogen (Oncology)) 10,000 units We@17 SC Last administered on 18:36; Admin Dose 10,000 UNITS; Start 11/23/16 at 17:00 Finasteride (Proscar) 5 mg DAILY GTB Last administered on 11/25/16 08:57; Admin Dose 5 MG; Start 11/18/16 at 09:00 Gabapentin (Neurontin Liquid) 300 mg BID GTB Last administered on 11/25/16 08: 57; Admin Dose 300 MG; Start 11/18/16 at 09:00 Acetaminophen/ Hydrocodone Bitart ([place] (5/325)) Give 5/325 mg Q6HRS PRN ... Q6 PRN GTB PAIN Last administered on 11/19/16 02:58; Admin Dose 1 TAB; Start 11/18/16 at 00:30 Magnesium Oxide (Mag-Ox 400) 400 mg QHS GTB Last administered on 11/24/16 22: 06; Admin Dose 400 MG; Start 11/18/16 at 21:00 Multivitamins (Multivitamin) 30 ml DAILY GTB Last administered on 11/25/16 08: 57; Admin Dose 30 ML; Start 11/18/16 at 09:00 Ondansetron HCl (Zofran Tab) 4 mg Q6H PRN GTB NAUSEA AND/OR VOMITING; Start at 00:30 Lansoprazole (Prevacid) 30 mg DAILY@06 GTB Last administered on 11/25/16 05:33 ; Admin Dose 30 MG; Start 11/18/16 at 06:00 Lorazepam 0.5 mg 0.5 mg Q6H PRN GTB ANXIETY Last administered on 11/18/16 23: 21; Admin Dose 0.5 MG; Start 11/18/16 at 01:00 Ertapenem/Sodium Chloride (Invanz/NS) 100 ml @ 200 mls/hr Q24H IVPB Last administered on 11/24/16 18:12; Admin Dose 200 MLS/HR; Start 11/18/16 at 18:00 Docusate Sodium (Colace Liquid Cup) 100 mg BID GTB Last administered on 09:32; Admin Dose 100 MG; Start 11/20/16 at 21:00 Collagenase (Santyl) 1 applic DAILY TOP Last administered on 11/25/16 08:58; Admin Dose 1 APPLIC; Start 11/21/16 at 17:30 Collagenase (Santyl) 1 applic PRN PRN TOP WOUND CARE; Start 11/21/16 at 17:00 Promethazine HCl/ Codeine (Phenergan/ Codeine) 5 ml Q4H PRN PO COUGH Last administered on 11/25/16 05:33; Admin Dose 5 ML; Start 11/21/16 at 19:00 Ferrous Sulfate (Feosol Liquid Cup) 300 mg BID@06,18 GTB Last administered on 05:33; Admin Dose 300 MG; Start 11/22/16 at 06:00 Hydralazine HCl (Apresoline) 10 mg Q6H PRN IV SBP>170; Start 11/23/16 at 14:30 REMBERTO PÉREZ Nov 25, 2016 13:30
--- NOTE | 2016-11-25 17:20 | CONS ---
Date/Time of Note Date/Time of Note DATE: 11/25/16 TIME: 17:14 Assessment/Plan Assessment/Plan Chief Complaint/Hosp Course ID PROGRESS NOTE TOTAL ABX DAY # =>OFF ABX DAY #1 Ertapenem -> s/p 7 days s/p Vanco IV, Flagyl 24H INTERVAL SUMMARY * Patient has completed course of ABX for UTI and is clinically stable * Lethargic, generalized weakness, no fevers, VSS, WBC normal PHYSICAL EXAMINATION: GENERAL: VSS, NAD, no fevers HEENT: Unremarkable, NECK: (+)Trach present CHEST: Equal chest rise bilaterally, without dyspnea on observation HEART: Pulse RRR ABDOMEN: Soft EXTREMITIES: Warm SKIN: Warm, dry ID ASSESSMENT: 81 yo M w/Parkinson's dementia, quadriparesis s/p C-spine surgery admitted with : 1. Resolving sepsis 2. Multidrug-resistant Proteus mirabilis UTI 3. Bacteremia = Staph CoNS w/ repeat BCx (-) 4. Chronic respiratory failure -> Trach 5. Dysphagia with G-tube (-)MRSA Nares INVASIVES: * PIV ABX ALLERGIES: PCN CURRENT ABX: #OFF ABX DAY #1 S/P 7 DAYS => Ertapenem s/p Vanco IV, Flagyl ID RECOMMENDATIONS: 1. Patient hax completed ABX treatment for UTI with Ertapenem -> sepsis has resolved 2. May DC back to SNF OFF ABX when cleared by primary . Problems: Consultation Date/Type/Reason Admit Date/Time Nov 17, 2016 at 20:56 Initial Consult Date 11/18/16 Type of Consultation: ID Referring Provider: MARCO DOE Exam/Review of Systems Vital Signs Vitals Vital Signs Date Time Temp Pulse Resp B/P Pulse Ox O2 Delivery O2 Flow Rate FiO2 11/25/16 15:33 98.4 54 18 158/71 99 11/25/16 15:03 30 Intake and Output 11/24/16 11/24/16 11/25/16 15:00 23:00 07:00 Intake Total 1090 ml 2020 ml Output Total 900 ml 800 ml Balance 190 ml 1220 ml Results Result Diagram: 11/24/16 0704 11/24/16 0704 Results 24 hrs Laboratory Tests Test 11/24/16 20:50 Bedside Glucose 101 Medications Medications Current Medications Sodium Chloride (1/2 NS) 1,000 ml @ 60 mls/hr [id number] IV Last administered on 11/25/16 11:19; Admin Dose 60 MLS/HR; Start 11/18/16 at 00:00 Acetaminophen (Tylenol Liquid) 650 mg Q6H PRN GTB MILD PAIN LEVEL 1-3 Last administered on 11/21/16 17:17; Admin Dose 650 MG; Start 11/18/16 at 00:30 Amlodipine Besylate (Norvasc) 5 mg DAILY GTB Last administered on 11/25/16 08: 58; Admin Dose 5 MG; Start 11/18/16 at 09:00 Ascorbic Acid (Vitamin C) 500 mg DAILY GTB Last administered on 11/25/16 08:57 ; Admin Dose 500 MG; Start 11/18/16 at 09:00 Benazepril HCl (Lotensin) 40 mg DAILY GTB Last administered on 11/25/16 08:57 ; Admin Dose 40 MG; Start 11/18/16 at 09:00 Carbidopa/Levodopa (Sinemet (25/ 100)) 0.5 tab BID GTB Last administered on 08:57; Admin Dose 0.5 TAB; Start 11/18/16 at 09:00 Clonidine (Catapres) 0.1 mg Q6 PRN GTB ELEVATED BLOOD PRESSURE Last administered on 11/23/16 12:39; Admin Dose 0.1 MG; Start 11/18/16 at 00:30 Eye Lubricant (Artificial Tears Oph) 2 drop QID BOTH EYES Last administered on 11/25/16 12:44; Admin Dose 2 DROP; Start 11/18/16 at 09:00 Epoetin Tree (Epogen (Oncology)) 10,000 units We@17 SC Last administered on 18:36; Admin Dose 10,000 UNITS; Start 11/23/16 at 17:00 Finasteride (Proscar) 5 mg DAILY GTB Last administered on 11/25/16 08:57; Admin Dose 5 MG; Start 11/18/16 at 09:00 Gabapentin (Neurontin Liquid) 300 mg BID GTB Last administered on 11/25/16 08: 57; Admin Dose 300 MG; Start 11/18/16 at 09:00 Acetaminophen/ Hydrocodone Bitart ([place] (5/325)) Give 5/325 mg Q6HRS PRN ... Q6 PRN GTB PAIN Last administered on 11/19/16 02:58; Admin Dose 1 TAB; Start 11/18/16 at 00:30 Magnesium Oxide (Mag-Ox 400) 400 mg QHS GTB Last administered on 11/24/16 22: 06; Admin Dose 400 MG; Start 11/18/16 at 21:00 Multivitamins (Multivitamin) 30 ml DAILY GTB Last administered on 11/25/16 08: 57; Admin Dose 30 ML; Start 11/18/16 at 09:00 Ondansetron HCl (Zofran Tab) 4 mg Q6H PRN GTB NAUSEA AND/OR VOMITING; Start at 00:30 Lansoprazole (Prevacid) 30 mg DAILY@06 GTB Last administered on 11/25/16 05:33 ; Admin Dose 30 MG; Start 11/18/16 at 06:00 Lorazepam 0.5 mg 0.5 mg Q6H PRN GTB ANXIETY Last administered on 11/18/16 23: 21; Admin Dose 0.5 MG; Start 11/18/16 at 01:00 Ertapenem/Sodium Chloride (Invanz/NS) 100 ml @ 200 mls/hr Q24H IVPB Last administered on 11/24/16 18:12; Admin Dose 200 MLS/HR; Start 11/18/16 at 18:00 Docusate Sodium (Colace Liquid Cup) 100 mg BID GTB Last administered on 09:32; Admin Dose 100 MG; Start 11/20/16 at 21:00 Collagenase (Santyl) 1 applic DAILY TOP Last administered on 11/25/16 08:58; Admin Dose 1 APPLIC; Start 11/21/16 at 17:30 Collagenase (Santyl) 1 applic PRN PRN TOP WOUND CARE; Start 11/21/16 at 17:00 Promethazine HCl/ Codeine (Phenergan/ Codeine) 5 ml Q4H PRN PO COUGH Last administered on 11/25/16 05:33; Admin Dose 5 ML; Start 11/21/16 at 19:00 Ferrous Sulfate (Feosol Liquid Cup) 300 mg BID@06,18 GTB Last administered on 05:33; Admin Dose 300 MG; Start 11/22/16 at 06:00 Hydralazine HCl (Apresoline) 10 mg Q6H PRN IV SBP>170; Start 11/23/16 at 14:30 MEAGAN LOPES NP Nov 25, 2016 17:20
[2016-11-25] MEDS: LORAZEPAM 0.5 MG TAB GTB PRN (23:09)
[2016-11-25] MEDS: MAGNESIUM OXIDE 400 MG TAB GTB SCH (23:10)
[2016-11-26] VITALS (25 sets, daily range): BP systolic 107–142; BP diastolic 56–82; PULSE 40–62; RESP 13–23
[2016-11-26] MEDS: IPRATROPIUM (HFA) 12.9 GM INHALER INH SCH ×4 (02:04→19:39)
[2016-11-26] MEDS: ALBUTEROL 18 GM INHALER INH SCH ×4 (02:04→19:39)
[2016-11-26 06:06] LABS: BASOPHILS % 0.4 % (0.0-2.0); EOSINOPHILS # 0.2 10^3/ul (0.0-0.5); EOSINOPHILS % 4.3 % (0.0-7.0); HEMATOCRIT 26.7 % (42.0-52.0); HEMOGLOBIN 8.6 g/dl (14.0-18.0); LYMPHOCYTES # 2.2 10^3/ul (0.8-2.9); LYMPHOCYTES % 41.2 % (15.0-51.0); MEAN CORPUSCULAR HGB CONC 32.2 g/dl (32.0-37.0); MEAN CORPUSCULAR VOLUME 89.9 fl (82.0-101.0); MEAN PLATELET VOLUME 10.8 fl (7.4-10.4); MONOCYTES % 19.3 % (0.0-11.0); NEUTROPHIL # 1.9 10^3/ul (1.6-7.5); NEUTROPHILS % 34.6 % (39.0-77.0); PLATELET COUNT 254 10^3/UL (140-415); RED BLOOD COUNT 2.97 10^6/ul (4.70-6.10); RED CELL DISTRIBUTION WIDTH 15.7 % (11.5-14.5); WHITE BLOOD COUNT 5.3 10^3/ul (4.8-10.8)
[2016-11-26 06:32] LABS: CALCIUM 7.8 mg/dl (8.4-10.2); CREATININE 0.6 mg/dl (0.61-1.24); POTASSIUM 3.7 mmol/L (3.5-5.1)
[2016-11-26] MEDS: LANSOPRAZOLE 30 MG CAP GTB SCH (06:39)
[2016-11-26] MEDS: FERROUS SULFATE 60 MG/ML 5ML CUP GTB SCH ×2 (06:39→17:54)
[2016-11-26] MEDS: DOCUSATE SODIUM 10 MG/ML (10ML CUP) GTB SCH ×2 (08:28→20:42)
[2016-11-26] MEDS: SOD CHLORIDE 0.45% 1,000 ML IV SCH (08:28)
[2016-11-26] MEDS: MULTIVITAMINS 30 ML CUP GTB SCH (08:28)
[2016-11-26] MEDS: GABAPENTIN (50 MG/ML PO SYG) GTB SCH ×2 (08:28→20:42)
[2016-11-26] MEDS: FINASTERIDE 5 MG TAB GTB SCH (08:29)
[2016-11-26] MEDS: AMLODIPINE 5 MG TAB GTB SCH (08:29)
[2016-11-26] MEDS: ASCORBIC ACID 500 MG TAB GTB SCH (08:29)
[2016-11-26] MEDS: BENAZEPRIL 40 MG TAB GTB SCH (08:30)
[2016-11-26] MEDS: ARTIFICIAL TEARS 15 ML OPH BOTH EYES SCH ×4 (08:30→20:42)
[2016-11-26] MEDS: CARBIDOPA/LEVODOPA (25/100) TAB GTB SCH ×2 (08:30→20:42)
[2016-11-26] MEDS: COLLAGENASE 30 GM TUBE TOP SCH (08:31)
--- NOTE | 2016-11-26 10:09 | CONS ---
Date/Time of Note Date/Time of Note DATE: 11/26/16 TIME: 10:08 Assessment/Plan Assessment/Plan Additional Assessment/Plan Ventilator setting; AC of 12, tidal volume 500, PEEP of 5, 30% FiO2. Assessment recommendations; 1. Patient admitted with UTI and sepsis with marked interval improvement. Off antibiotics. 2. Chronic respiratory failure, ventilator dependent. 3. History of spinal surgery, with quadriplegia. 4. Dementia. Continue current treatment. Consider discharge. Consultation Date/Type/Reason Admit Date/Time Nov 17, 2016 at 20:56 Initial Consult Date 11/18/16 Type of Consultation: Pulmonary/critical care Referring Provider: MARCO DOE 24 HR Interval Summary Free Text/Dictation Patient condition remains stable. Remains awake. Has stable quadriplegia. Remains ventilator dependent. Has remained hemodynamically stable. General exam; elderly male, on ventilator via tracheostomy, awake and semi- responsive. Exam/Review of Systems Vital Signs Vitals Vital Signs Date Time Temp Pulse Resp B/P Pulse Ox O2 Delivery O2 Flow Rate FiO2 11/26/16 09:00 48 13 99 30 11/26/16 07:43 98.0 129/78 Intake and Output 11/25/16 11/25/16 11/26/16 15:00 23:00 07:00 Intake Total 280 ml 1090 ml 2020 ml Output Total 1400 ml 900 ml Balance 280 ml -310 ml 1120 ml Exam HEENT exam; supple neck, no JVD. Tracheostomy in place. Pharynx is clear. Chest exam; clear to auscultation. S1-S2 audible, no murmurs. Regular rhythm. Abdomen exam; soft, G-tube in place. Bowel sounds audible. No organomegaly. Extremity exam; no peripheral edema. 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 Has stable quadriplegia. Results Result Diagram: 11/26/1652311/26/16523 Results 24 hrs Laboratory Tests Test 11/26/16 05:24 White Blood Count 5.3 # Red Blood Count 2.97 L Hemoglobin 8.6 L Hematocrit 26.7 L Mean Corpuscular Volume 89.9 Mean Corpuscular Hemoglobin 29.0 Mean Corpuscular Hemoglobin Concent 32.2 Red Cell Distribution Width 15.7 H Platelet Count 254 Mean Platelet Volume 10.8 H Neutrophils % 34.6 L Lymphocytes % 41.2 Monocytes % 19.3 H Eosinophils % 4.3 Basophils % 0.4 Nucleated Red Blood Cells % 0.0 Neutrophils # 1.9 Lymphocytes # 2.2 Monocytes # 1.0 H Eosinophils # 0.2 Basophils # 0.0 Nucleated Red Blood Cells # 0.0 Sodium Level 140 Potassium Level 3.7 Chloride Level 104 Carbon Dioxide Level 27 Anion Gap 13 Blood Urea Nitrogen 24 H Creatinine 0.60 L Glucose Level 100 Calcium Level 7.8 L Medications Medications Current Medications Sodium Chloride (1/2 NS) 1,000 ml @ 60 mls/hr [id number] IV Last administered on 11/26/16 08:28; Admin Dose 60 MLS/HR; Start 11/18/16 at 00:00 Acetaminophen (Tylenol Liquid) 650 mg Q6H PRN GTB MILD PAIN LEVEL 1-3 Last administered on 11/21/16 17:17; Admin Dose 650 MG; Start 11/18/16 at 00:30 Amlodipine Besylate (Norvasc) 5 mg DAILY GTB Last administered on 11/26/16 08: 29; Admin Dose 5 MG; Start 11/18/16 at 09:00 Ascorbic Acid (Vitamin C) 500 mg DAILY GTB Last administered on 11/26/16 08:29 ; Admin Dose 500 MG; Start 11/18/16 at 09:00 Benazepril HCl (Lotensin) 40 mg DAILY GTB Last administered on 11/26/16 08:30 ; Admin Dose 40 MG; Start 11/18/16 at 09:00 Carbidopa/Levodopa (Sinemet (25/ 100)) 0.5 tab BID GTB Last administered on 08:30; Admin Dose 0.5 TAB; Start 11/18/16 at 09:00 Clonidine (Catapres) 0.1 mg Q6 PRN GTB ELEVATED BLOOD PRESSURE Last administered on 11/23/16 12:39; Admin Dose 0.1 MG; Start 11/18/16 at 00:30 Eye Lubricant (Artificial Tears Oph) 2 drop QID BOTH EYES Last administered on 11/26/16 08:30; Admin Dose 2 DROP; Start 11/18/16 at 09:00 Epoetin Tree (Epogen (Oncology)) 10,000 units We@17 SC Last administered on 18:36; Admin Dose 10,000 UNITS; Start 11/23/16 at 17:00 Finasteride (Proscar) 5 mg DAILY GTB Last administered on 11/26/16 08:29; Admin Dose 5 MG; Start 11/18/16 at 09:00 Gabapentin (Neurontin Liquid) 300 mg BID GTB Last administered on 11/26/16 08: 28; Admin Dose 300 MG; Start 11/18/16 at 09:00 Acetaminophen/ Hydrocodone Bitart ([place] (5/325)) Give 5/325 mg Q6HRS PRN ... Q6 PRN GTB PAIN Last administered on 11/19/16 02:58; Admin Dose 1 TAB; Start 11/18/16 at 00:30 Magnesium Oxide (Mag-Ox 400) 400 mg QHS GTB Last administered on 11/25/16 23: 10; Admin Dose 400 MG; Start 11/18/16 at 21:00 Multivitamins (Multivitamin) 30 ml DAILY GTB Last administered on 11/26/16 08: 28; Admin Dose 30 ML; Start 11/18/16 at 09:00 Ondansetron HCl (Zofran Tab) 4 mg Q6H PRN GTB NAUSEA AND/OR VOMITING; Start at 00:30 Lansoprazole (Prevacid) 30 mg DAILY@06 GTB Last administered on 11/26/16 06:39 ; Admin Dose 30 MG; Start 11/18/16 at 06:00 Lorazepam (Ativan) 0.5 mg Q6H PRN GTB ANXIETY Last administered on 11/25/16 23 :09; Admin Dose 0.5 MG; Start 11/18/16 at 01:00 Docusate Sodium (Colace Liquid Cup) 100 mg BID GTB Last administered on 09:32; Admin Dose 100 MG; Start 11/20/16 at 21:00 Collagenase (Santyl) 1 applic DAILY TOP Last administered on 11/26/16 08:31; Admin Dose 1 APPLIC; Start 11/21/16 at 17:30 Collagenase (Santyl) 1 applic PRN PRN TOP WOUND CARE; Start 11/21/16 at 17:00 Promethazine HCl/ Codeine (Phenergan/ Codeine) 5 ml Q4H PRN PO COUGH Last administered on 11/25/16 23:09; Admin Dose 5 ML; Start 11/21/16 at 19:00 Ferrous Sulfate (Feosol Liquid Cup) 300 mg BID@06,18 GTB Last administered on 06:39; Admin Dose 300 MG; Start 11/22/16 at 06:00 Hydralazine HCl (Apresoline) 10 mg Q6H PRN IV SBP>170; Start 11/23/16 at 14:30 KARLI RILEY Nov 26, 2016 10:09
--- NOTE | 2016-11-26 10:29 | PN ---
Date/Time of Note Date/Time of Note DATE: 11/26/16 TIME: 10:29 Assessment/Plan VTE Prophylaxis VTE Prophylaxis Intervention: other Lines/Catheters IV C[facility] Type (from [facility] Peripheral IV Urinary Cath still in place: Yes Reason Cath still needed: skin wounds contaminated by urine Assessment/Plan Chief Complaint/Hosp Course - Sepsis with bacteremia. Dr. Shine is following in ID consultation. Continue antibiotics per ID. - Acute cystitis with MDR Proteus mirabilis. - Possible tracheobronchitis - Sinus bradycardia, Dr. Chadwick is following and cardiology consultation. - Hyperkalemia, resolved - Status post cervical laminectomy for cervical and upper thoracic stenosis - History of cystic mass - Ventilator dependent respiratory failure with tracheostomy,Dr. Rivera is following patient in pulmonology consultation. - Left lower extremity weakness, No acute process per imaging. Dr. Fulton is neurology consultation is appreciated. - Dysphagia with G-tube. - Parkinson's disease, continue Sinemet. - Hypertension, continue benazepril. - Sacral decubitus stage III, continue offloading, nutrition optimization. Problems: Subjective 24 Hr Interval Summary Free Text/Dictation Patient comfortable, trach in place Exam/Review of Systems Vital Signs Vitals Vital Signs Date Time Temp Pulse Resp B/P Pulse Ox O2 Delivery O2 Flow Rate FiO2 11/26/16 09:00 30 11/26/16 09:00 48 13 99 11/26/16 07:43 98.0 129/78 Intake and Output 11/25/16 11/25/16 11/26/16 15:00 23:00 07:00 Intake Total 280 ml 1090 ml 2020 ml Output Total 1400 ml 900 ml Balance 280 ml -310 ml 1120 ml Exam Constitutional: well developed Head: atraumatic, normocephalic Neck: supple Respiratory: diminished breath sounds Cardiovascular: regular rate and rhythm Gastrointestinal: non-tender, soft Extremities: normal pulses Results Result Diagram: 11/26/1652311/26/16 0524 Results 24 hrs Laboratory Tests Test 11/26/16 05:24 White Blood Count 5.3 # Red Blood Count 2.97 L Hemoglobin 8.6 L Hematocrit 26.7 L Mean Corpuscular Volume 89.9 Mean Corpuscular Hemoglobin 29.0 Mean Corpuscular Hemoglobin Concent 32.2 Red Cell Distribution Width 15.7 H Platelet Count 254 Mean Platelet Volume 10.8 H Neutrophils % 34.6 L Lymphocytes % 41.2 Monocytes % 19.3 H Eosinophils % 4.3 Basophils % 0.4 Nucleated Red Blood Cells % 0.0 Neutrophils # 1.9 Lymphocytes # 2.2 Monocytes # 1.0 H Eosinophils # 0.2 Basophils # 0.0 Nucleated Red Blood Cells # 0.0 Sodium Level 140 Potassium Level 3.7 Chloride Level 104 Carbon Dioxide Level 27 Anion Gap 13 Blood Urea Nitrogen 24 H Creatinine 0.60 L Glucose Level 100 Calcium Level 7.8 L Medications Medications Current Medications Sodium Chloride (1/2 NS) 1,000 ml @ 60 mls/hr [id number] IV Last administered on 11/26/16 08:28; Admin Dose 60 MLS/HR; Start 11/18/16 at 00:00 Acetaminophen (Tylenol Liquid) 650 mg Q6H PRN GTB MILD PAIN LEVEL 1-3 Last administered on 11/21/16 17:17; Admin Dose 650 MG; Start 11/18/16 at 00:30 Amlodipine Besylate (Norvasc) 5 mg DAILY GTB Last administered on 11/26/16 08: 29; Admin Dose 5 MG; Start 11/18/16 at 09:00 Ascorbic Acid (Vitamin C) 500 mg DAILY GTB Last administered on 11/26/16 08:29 ; Admin Dose 500 MG; Start 11/18/16 at 09:00 Benazepril HCl (Lotensin) 40 mg DAILY GTB Last administered on 11/26/16 08:30 ; Admin Dose 40 MG; Start 11/18/16 at 09:00 Carbidopa/Levodopa (Sinemet (25/ 100)) 0.5 tab BID GTB Last administered on 08:30; Admin Dose 0.5 TAB; Start 11/18/16 at 09:00 Clonidine (Catapres) 0.1 mg Q6 PRN GTB ELEVATED BLOOD PRESSURE Last administered on 11/23/16 12:39; Admin Dose 0.1 MG; Start 11/18/16 at 00:30 Eye Lubricant (Artificial Tears Oph) 2 drop QID BOTH EYES Last administered on 11/26/16 08:30; Admin Dose 2 DROP; Start 11/18/16 at 09:00 Epoetin Tree (Epogen (Oncology)) 10,000 units We@17 SC Last administered on 18:36; Admin Dose 10,000 UNITS; Start 11/23/16 at 17:00 Finasteride (Proscar) 5 mg DAILY GTB Last administered on 11/26/16 08:29; Admin Dose 5 MG; Start 11/18/16 at 09:00 Gabapentin (Neurontin Liquid) 300 mg BID GTB Last administered on 11/26/16 08: 28; Admin Dose 300 MG; Start 11/18/16 at 09:00 Acetaminophen/ Hydrocodone Bitart ([place] (5/325)) Give 5/325 mg Q6HRS PRN ... Q6 PRN GTB PAIN Last administered on 11/19/16 02:58; Admin Dose 1 TAB; Start 11/18/16 at 00:30 Magnesium Oxide (Mag-Ox 400) 400 mg QHS GTB Last administered on 11/25/16 23: 10; Admin Dose 400 MG; Start 11/18/16 at 21:00 Multivitamins (Multivitamin) 30 ml DAILY GTB Last administered on 11/26/16 08: 28; Admin Dose 30 ML; Start 11/18/16 at 09:00 Ondansetron HCl (Zofran Tab) 4 mg Q6H PRN GTB NAUSEA AND/OR VOMITING; Start at 00:30 Lansoprazole (Prevacid) 30 mg DAILY@06 GTB Last administered on 11/26/16 06:39 ; Admin Dose 30 MG; Start 11/18/16 at 06:00 Lorazepam (Ativan) 0.5 mg Q6H PRN GTB ANXIETY Last administered on 11/25/16 23 :09; Admin Dose 0.5 MG; Start 11/18/16 at 01:00 Docusate Sodium (Colace Liquid Cup) 100 mg BID GTB Last administered on 09:32; Admin Dose 100 MG; Start 11/20/16 at 21:00 Collagenase (Santyl) 1 applic DAILY TOP Last administered on 11/26/16 08:31; Admin Dose 1 APPLIC; Start 11/21/16 at 17:30 Collagenase (Santyl) 1 applic PRN PRN TOP WOUND CARE; Start 11/21/16 at 17:00 Promethazine HCl/ Codeine (Phenergan/ Codeine) 5 ml Q4H PRN PO COUGH Last administered on 11/25/16 23:09; Admin Dose 5 ML; Start 11/21/16 at 19:00 Ferrous Sulfate (Feosol Liquid Cup) 300 mg BID@06,18 GTB Last administered on 06:39; Admin Dose 300 MG; Start 11/22/16 at 06:00 Hydralazine HCl (Apresoline) 10 mg Q6H PRN IV SBP>170; Start 11/23/16 at 14:30 JAYME WALL Nov 26, 2016 10:29
--- NOTE | 2016-11-26 10:39 | CONS ---
Date/Time of Note Date/Time of Note DATE: 11/26/16 TIME: 10:37 Assessment/Plan Assessment/Plan Additional Assessment/Plan 1.Bradycardia-NL TSH/negative trop x3. Stable BP. No definite indication for PPM at this time - HR controlled 2.UTI - on anti-Bx, con't Med rx 3.Resp failure s/p trach - resp care in progress 4.dysphagia s/p G tube - con't Rx 5.fever 6.parkinsons 7. HTN-reasonable Consultation Date/Type/Reason Admit Date/Time Nov 17, 2016 at 20:56 Initial Consult Date 11/18/16 Type of Consultation: Pulmonary/critical care Referring Provider: MARCO DOE 24 HR Interval Summary Free Text/Dictation No acute change - HR well Rx - No definite indication for PPM at this time - HR controlled ROS: No fever, no chills, no nausea, no vomiting, no diarrhea/constipation No recent weight changes No chest pain, no PND, no orthopnea No dizziness, blurred vision No thirst, no heat or cold intolerance (per nurse) Exam/Review of Systems Vital Signs Vitals Vital Signs Date Time Temp Pulse Resp B/P Pulse Ox O2 Delivery O2 Flow Rate FiO2 11/26/16 09:00 30 11/26/16 09:00 48 13 99 11/26/16 07:43 98.0 129/78 Intake and Output 11/25/16 11/25/16 11/26/16 15:00 23:00 07:00 Intake Total 280 ml 1090 ml 2020 ml Output Total 1400 ml 900 ml Balance 280 ml -310 ml 1120 ml Exam General: WN/WD/NAD, AOx 0 HEENT: Unicetric/atraumatic/EOMI (does not follow commands) NECK: trach Lymph: no lymphadenopathy HEART: regular with no S3, II/ systolic murmur at apex LUNGS: Coarse sounds ABD: soft, NT, ND, +BS : Intact Neuro: non focal SKIN: chronic changes EXT: trace edema Results Result Diagram: 11/26/1652311/26/16523 Results 24 hrs Laboratory Tests Test 11/26/16 05:24 White Blood Count 5.3 # Red Blood Count 2.97 L Hemoglobin 8.6 L Hematocrit 26.7 L Mean Corpuscular Volume 89.9 Mean Corpuscular Hemoglobin 29.0 Mean Corpuscular Hemoglobin Concent 32.2 Red Cell Distribution Width 15.7 H Platelet Count 254 Mean Platelet Volume 10.8 H Neutrophils % 34.6 L Lymphocytes % 41.2 Monocytes % 19.3 H Eosinophils % 4.3 Basophils % 0.4 Nucleated Red Blood Cells % 0.0 Neutrophils # 1.9 Lymphocytes # 2.2 Monocytes # 1.0 H Eosinophils # 0.2 Basophils # 0.0 Nucleated Red Blood Cells # 0.0 Sodium Level 140 Potassium Level 3.7 Chloride Level 104 Carbon Dioxide Level 27 Anion Gap 13 Blood Urea Nitrogen 24 H Creatinine 0.60 L Glucose Level 100 Calcium Level 7.8 L Medications Medications Current Medications Sodium Chloride (1/2 NS) 1,000 ml @ 60 mls/hr [id number] IV Last administered on 11/26/16 08:28; Admin Dose 60 MLS/HR; Start 11/18/16 at 00:00 Acetaminophen (Tylenol Liquid) 650 mg Q6H PRN GTB MILD PAIN LEVEL 1-3 Last administered on 11/21/16 17:17; Admin Dose 650 MG; Start 11/18/16 at 00:30 Amlodipine Besylate (Norvasc) 5 mg DAILY GTB Last administered on 11/26/16 08: 29; Admin Dose 5 MG; Start 11/18/16 at 09:00 Ascorbic Acid (Vitamin C) 500 mg DAILY GTB Last administered on 11/26/16 08:29 ; Admin Dose 500 MG; Start 11/18/16 at 09:00 Benazepril HCl (Lotensin) 40 mg DAILY GTB Last administered on 11/26/16 08:30 ; Admin Dose 40 MG; Start 11/18/16 at 09:00 Carbidopa/Levodopa (Sinemet (25/ 100)) 0.5 tab BID GTB Last administered on 08:30; Admin Dose 0.5 TAB; Start 11/18/16 at 09:00 Clonidine (Catapres) 0.1 mg Q6 PRN GTB ELEVATED BLOOD PRESSURE Last administered on 11/23/16 12:39; Admin Dose 0.1 MG; Start 11/18/16 at 00:30 Eye Lubricant (Artificial Tears Oph) 2 drop QID BOTH EYES Last administered on 11/26/16 08:30; Admin Dose 2 DROP; Start 11/18/16 at 09:00 Epoetin Tree (Epogen (Oncology)) 10,000 units We@17 SC Last administered on 18:36; Admin Dose 10,000 UNITS; Start 11/23/16 at 17:00 Finasteride (Proscar) 5 mg DAILY GTB Last administered on 11/26/16 08:29; Admin Dose 5 MG; Start 11/18/16 at 09:00 Gabapentin (Neurontin Liquid) 300 mg BID GTB Last administered on 11/26/16 08: 28; Admin Dose 300 MG; Start 11/18/16 at 09:00 Acetaminophen/ Hydrocodone Bitart ([place] (5/325)) Give 5/325 mg Q6HRS PRN ... Q6 PRN GTB PAIN Last administered on 11/19/16 02:58; Admin Dose 1 TAB; Start 11/18/16 at 00:30 Magnesium Oxide (Mag-Ox 400) 400 mg QHS GTB Last administered on 11/25/16 23: 10; Admin Dose 400 MG; Start 11/18/16 at 21:00 Multivitamins (Multivitamin) 30 ml DAILY GTB Last administered on 11/26/16 08: 28; Admin Dose 30 ML; Start 11/18/16 at 09:00 Ondansetron HCl (Zofran Tab) 4 mg Q6H PRN GTB NAUSEA AND/OR VOMITING; Start at 00:30 Lansoprazole (Prevacid) 30 mg DAILY@06 GTB Last administered on 11/26/16 06:39 ; Admin Dose 30 MG; Start 11/18/16 at 06:00 Lorazepam (Ativan) 0.5 mg Q6H PRN GTB ANXIETY Last administered on 11/25/16 23 :09; Admin Dose 0.5 MG; Start 11/18/16 at 01:00 Docusate Sodium (Colace Liquid Cup) 100 mg BID GTB Last administered on 09:32; Admin Dose 100 MG; Start 11/20/16 at 21:00 Collagenase (Santyl) 1 applic DAILY TOP Last administered on 11/26/16 08:31; Admin Dose 1 APPLIC; Start 11/21/16 at 17:30 Collagenase (Santyl) 1 applic PRN PRN TOP WOUND CARE; Start 11/21/16 at 17:00 Promethazine HCl/ Codeine (Phenergan/ Codeine) 5 ml Q4H PRN PO COUGH Last administered on 11/25/16 23:09; Admin Dose 5 ML; Start 11/21/16 at 19:00 Ferrous Sulfate (Feosol Liquid Cup) 300 mg BID@06,18 GTB Last administered on 06:39; Admin Dose 300 MG; Start 11/22/16 at 06:00 Hydralazine HCl (Apresoline) 10 mg Q6H PRN IV SBP>170; Start 11/23/16 at 14:30 RIVER FALCON MD Nov 26, 2016 10:39
[2016-11-26] MEDS: PROMETHAZINE/CODEINE 5ML CUP PO PRN (14:17)
--- NOTE | 2016-11-26 14:50 | CONS ---
Date/Time of Note Date/Time of Note DATE: 11/26/16 TIME: 14:47 Assessment/Plan Assessment/Plan Chief Complaint/Hosp Course ID PROGRESS NOTE TOTAL ABX DAY # =>OFF ABX DAY #2 Ertapenem -> s/p 7 days s/p Vanco IV, Flagyl 24H INTERVAL SUMMARY * 81 yo chronic VDRF, chronic encephalopathy, stable OFF ABX, WBC normalized, no fevers, calm, looks comfortable * Chronic lethargy, generalized weakness PHYSICAL EXAMINATION: GENERAL: VSS, NAD, no fevers HEENT: Unremarkable, NECK: (+)Trach present CHEST: Equal chest rise bilaterally, without dyspnea on observation HEART: Pulse RRR ABDOMEN: Soft EXTREMITIES: Warm SKIN: Warm, dry ID ASSESSMENT: 81 yo M w/Parkinson's dementia, quadriparesis s/p C-spine surgery admitted with : 1. Sepsis on admission =>RESOLVED 2. Multidrug-resistant Proteus mirabilis UTI=>RESOLVED 3. Bacteremia = Staph CoNS w/ repeat BCx (-) =>RESOLVED 4. Chronic respiratory failure -> Trach 5. Dysphagia with G-tube (-)MRSA Nares INVASIVES: * PIV ABX ALLERGIES: PCN CURRENT ABX: #OFF ABX DAY #2 S/P 7 DAYS => Ertapenem s/p Vanco IV, Flagyl ID RECOMMENDATIONS=> Remains stable off ABX day #2 1. Patient hax completed ABX treatment for UTI with Ertapenem -> sepsis has resolved 2. May DC back to SNF OFF ABX when cleared by primary . Problems: Consultation Date/Type/Reason Admit Date/Time Nov 17, 2016 at 20:56 Initial Consult Date 11/18/16 Type of Consultation: ID Referring Provider: MARCO DOE Exam/Review of Systems Vital Signs Vitals Vital Signs Date Time Temp Pulse Resp B/P Pulse Ox O2 Delivery O2 Flow Rate FiO2 11/26/16 13:00 52 15 98 30 11/26/16 12:41 98.0 131/75 Intake and Output 11/25/16 11/25/16 11/26/16 15:00 23:00 07:00 Intake Total 280 ml 1090 ml 2020 ml Output Total 1400 ml 900 ml Balance 280 ml -310 ml 1120 ml Results Result Diagram: 11/26/16 0524 11/26/1624 Results 24 hrs Laboratory Tests Test 11/26/16 05:24 White Blood Count 5.3 # Red Blood Count 2.97 L Hemoglobin 8.6 L Hematocrit 26.7 L Mean Corpuscular Volume 89.9 Mean Corpuscular Hemoglobin 29.0 Mean Corpuscular Hemoglobin Concent 32.2 Red Cell Distribution Width 15.7 H Platelet Count 254 Mean Platelet Volume 10.8 H Neutrophils % 34.6 L Lymphocytes % 41.2 Monocytes % 19.3 H Eosinophils % 4.3 Basophils % 0.4 Nucleated Red Blood Cells % 0.0 Neutrophils # 1.9 Lymphocytes # 2.2 Monocytes # 1.0 H Eosinophils # 0.2 Basophils # 0.0 Nucleated Red Blood Cells # 0.0 Sodium Level 140 Potassium Level 3.7 Chloride Level 104 Carbon Dioxide Level 27 Anion Gap 13 Blood Urea Nitrogen 24 H Creatinine 0.60 L Glucose Level 100 Calcium Level 7.8 L Medications Medications Current Medications Sodium Chloride (1/2 NS) 1,000 ml @ 60 mls/hr [id number] IV Last administered on 11/26/16 08:28; Admin Dose 60 MLS/HR; Start 11/18/16 at 00:00 Acetaminophen (Tylenol Liquid) 650 mg Q6H PRN GTB MILD PAIN LEVEL 1-3 Last administered on 11/21/16 17:17; Admin Dose 650 MG; Start 11/18/16 at 00:30 Amlodipine Besylate (Norvasc) 5 mg DAILY GTB Last administered on 11/26/16 08: 29; Admin Dose 5 MG; Start 11/18/16 at 09:00 Ascorbic Acid (Vitamin C) 500 mg DAILY GTB Last administered on 11/26/16 08:29 ; Admin Dose 500 MG; Start 11/18/16 at 09:00 Benazepril HCl (Lotensin) 40 mg DAILY GTB Last administered on 11/26/16 08:30 ; Admin Dose 40 MG; Start 11/18/16 at 09:00 Carbidopa/Levodopa (Sinemet (25/ 100)) 0.5 tab BID GTB Last administered on 08:30; Admin Dose 0.5 TAB; Start 11/18/16 at 09:00 Clonidine (Catapres) 0.1 mg Q6 PRN GTB ELEVATED BLOOD PRESSURE Last administered on 11/23/16 12:39; Admin Dose 0.1 MG; Start 11/18/16 at 00:30 Eye Lubricant (Artificial Tears Oph) 2 drop QID BOTH EYES Last administered on 11/26/16 12:56; Admin Dose 2 DROP; Start 11/18/16 at 09:00 Epoetin Tree (Epogen (Oncology)) 10,000 units We@17 SC Last administered on 18:36; Admin Dose 10,000 UNITS; Start 11/23/16 at 17:00 Finasteride (Proscar) 5 mg DAILY GTB Last administered on 11/26/16 08:29; Admin Dose 5 MG; Start 11/18/16 at 09:00 Gabapentin (Neurontin Liquid) 300 mg BID GTB Last administered on 11/26/16 08: 28; Admin Dose 300 MG; Start 11/18/16 at 09:00 Acetaminophen/ Hydrocodone Bitart ([place] (5/325)) Give 5/325 mg Q6HRS PRN ... Q6 PRN GTB PAIN Last administered on 11/19/16 02:58; Admin Dose 1 TAB; Start 11/18/16 at 00:30 Magnesium Oxide (Mag-Ox 400) 400 mg QHS GTB Last administered on 11/25/16 23: 10; Admin Dose 400 MG; Start 11/18/16 at 21:00 Multivitamins (Multivitamin) 30 ml DAILY GTB Last administered on 11/26/16 08: 28; Admin Dose 30 ML; Start 11/18/16 at 09:00 Ondansetron HCl (Zofran Tab) 4 mg Q6H PRN GTB NAUSEA AND/OR VOMITING; Start at 00:30 Lansoprazole (Prevacid) 30 mg DAILY@06 GTB Last administered on 11/26/16 06:39 ; Admin Dose 30 MG; Start 11/18/16 at 06:00 Lorazepam (Ativan) 0.5 mg Q6H PRN GTB ANXIETY Last administered on 11/25/16 23 :09; Admin Dose 0.5 MG; Start 11/18/16 at 01:00 Docusate Sodium (Colace Liquid Cup) 100 mg BID GTB Last administered on 09:32; Admin Dose 100 MG; Start 11/20/16 at 21:00 Collagenase (Santyl) 1 applic DAILY TOP Last administered on 11/26/16 08:31; Admin Dose 1 APPLIC; Start 11/21/16 at 17:30 Collagenase (Santyl) 1 applic PRN PRN TOP WOUND CARE; Start 11/21/16 at 17:00 Promethazine HCl/ Codeine (Phenergan/ Codeine) 5 ml Q4H PRN PO COUGH Last administered on 11/26/16 14:17; Admin Dose 5 ML; Start 11/21/16 at 19:00 Ferrous Sulfate (Feosol Liquid Cup) 300 mg BID@06,18 GTB Last administered on 06:39; Admin Dose 300 MG; Start 11/22/16 at 06:00 Hydralazine HCl (Apresoline) 10 mg Q6H PRN IV SBP>170; Start 11/23/16 at 14:30 MEAGAN LOPES NP Nov 26, 2016 14:50
[2016-11-26] MEDS: MAGNESIUM OXIDE 400 MG TAB GTB SCH (20:42)
[2016-11-27] VITALS (25 sets, daily range): BP systolic 135–157; BP diastolic 62–71; PULSE 40–56; RESP 13–23
[2016-11-27] MEDS: SOD CHLORIDE 0.45% 1,000 ML IV SCH ×2 (00:40→10:52)
[2016-11-27] MEDS: IPRATROPIUM (HFA) 12.9 GM INHALER INH SCH ×4 (01:03→19:19)
[2016-11-27] MEDS: ALBUTEROL 18 GM INHALER INH SCH ×4 (01:03→19:19)
[2016-11-27] MEDS: LANSOPRAZOLE 30 MG CAP GTB SCH (05:10)
[2016-11-27] MEDS: FERROUS SULFATE 60 MG/ML 5ML CUP GTB SCH ×2 (05:10→17:59)
--- NOTE | 2016-11-27 07:28 | CONS ---
DATE OF ADMISSION: 11/17/2016 DATE OF CONSULTATION: 11/27/2016 HISTORY OF PRESENT ILLNESS: Tee Box is an 81-year-old gentleman who has been complaining of some discomfort around his tracheostomy tube and ENT was consulted to evaluate this. 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 He also hypertension and Parkinson's disease. PAST SURGICAL HISTORY: Cervical laminectomy, tracheostomy, percutaneous endoscopy gastrostomy tube. MEDICATION: List was reviewed. ALLERGIES: NO KNOWN DRUG ALLERGIES. SOCIAL HISTORY: Negative for tobacco, alcohol or drug abuse. FAMILY HISTORY: Negative for any heart, lung, kidney, thyroid or liver disease. REVIEW OF SYSTEMS: Other than the pain at the tracheostomy tube, a 12-point review of systems is otherwise noncontributory. PHYSICAL EXAMINATION: HEENT: Oral cavity, , tongue, floor of mouth are normal. Oropharynx is clear. Nose shows a mildly deviated septum. Mucosa has erythema and edema. NECK: No lymphadenopathy or thyromegaly. Around the tracheostomy tube there is some edema and very mild erythema of the surrounding skin, which is mildly tender to palpation. Endoscopy through the tracheostomy tube shows a small shelf at the posterior tracheal wall at the level of the tip of the tracheostomy tube. I was able to look beyond this and I was able to see down to the devin without issue. Doing a nasopharyngolaryngoscope through the right nasal cavity the nasopharynx was clear. The base of tongue was symmetric. open. Epiglottis normal. Vocal cords are moving well. There are no lesions. IMPRESSION: 1. Respiratory failure. 2. Tracheostomy malfunction. 3. Cervical cellulitis. PLAN: At this point, he is on appropriate antibiotics so that should cover the erythema and edema around the tracheostomy tube. With regard to the shelf, we would consider an XLT proximal tracheostomy tube to bypass that. If there are any questions or concerns, please feel free to call at any time. Dictated By: Rolando Cho MD /brandon/maci /Document#: [id number]
--- NOTE | 2016-11-27 07:58 | CONS ---
DATE OF ADMISSION: 11/17/2016 DATE OF CONSULTATION: 11/26/2016 HISTORY OF PRESENT ILLNESS: The patient is an 81-year-old gentleman with prior cervical surgery and quadriparesis at baseline. ENT was re-consulted for changing of trach tube. On previous endoscopy, he was noted to have a shelf just distal to the tracheostomy tube, and so the decision was made to place an XLT tube. PAST MEDICAL HISTORY: 1. Hypertension. 2. Quadriparesis. PAST SURGICAL HISTORY: 1. Tracheostomy. 2. Percutaneous endoscopic gastrotomy tube. 3. Cervical spinal surgery. ALLERGIES: NONE. MEDICATIONS: List reviewed. SOCIAL HISTORY: Negative for tobacco, alcohol or drug abuse. FAMILY HISTORY: Negative for any heart, lung, kidney, thyroid or liver disease. REVIEW OF SYSTEMS: A 12-point review of systems was otherwise negative. PHYSICAL EXAMINATION: On examination today, the trach tube is stable. Again, going through the tube I was able to see the shelf, and so the decision was made to change to the XLT tube. It was easily changed, at which point endoscopy was done through the tube, and I was able to see easily down to the devin, with no obstruction whatsoever. At this point, he is resting quietly on the ventilator. Please feel free to re-consult at any time. Dictated By: Rolando Cho MD /brandon/cyndie /Document#: [id number]
[2016-11-27] MEDS: COLLAGENASE 30 GM TUBE TOP SCH (08:23)
[2016-11-27] MEDS: ARTIFICIAL TEARS 15 ML OPH BOTH EYES SCH ×4 (08:23→20:26)
[2016-11-27] MEDS: GABAPENTIN (50 MG/ML PO SYG) GTB SCH ×2 (08:23→21:24)
[2016-11-27] MEDS: AMLODIPINE 5 MG TAB GTB SCH (08:24)
[2016-11-27] MEDS: FINASTERIDE 5 MG TAB GTB SCH (08:24)
[2016-11-27] MEDS: CARBIDOPA/LEVODOPA (25/100) TAB GTB SCH ×2 (08:24→20:23)
[2016-11-27] MEDS: ASCORBIC ACID 500 MG TAB GTB SCH (08:24)
[2016-11-27] MEDS: BENAZEPRIL 40 MG TAB GTB SCH (08:24)
[2016-11-27] MEDS: PROMETHAZINE/CODEINE 5ML CUP PO PRN (08:24)
[2016-11-27] MEDS: DOCUSATE SODIUM 10 MG/ML (10ML CUP) GTB SCH ×2 (08:25→20:23)
[2016-11-27] MEDS: MULTIVITAMINS 30 ML CUP GTB SCH (08:25)
--- NOTE | 2016-11-27 11:18 | CONS ---
Date/Time of Note Date/Time of Note DATE: 11/27/16 TIME: 11:16 Assessment/Plan Assessment/Plan Additional Assessment/Plan Ventilator setting; AC of 12, tidal volume 500, PEEP of 5, 30% FiO2. Assessment and recommendations; 1. Patient admitted for UTI and sepsis with significant clinical improvement, off antibiotics now. 2. Chronic respiratory failure. 3. Advanced dementia. 4. Quadriplegia. Continue current treatment. Consider discharge. Consultation Date/Type/Reason Admit Date/Time Nov 17, 2016 at 20:56 Initial Consult Date 11/18/16 Type of Consultation: Pulmonary Referring Provider: MARCO DOE 24 HR Interval Summary Free Text/Dictation Patient condition stable. Remains awake but minimally responsive to any commands if any. Has remained hemodynamically stable. General exam; elderly male, on ventilator via tracheostomy currently in no distress. Exam/Review of Systems Vital Signs Vitals Vital Signs Date Time Temp Pulse Resp B/P Pulse Ox O2 Delivery O2 Flow Rate FiO2 11/27/16 09:15 53 13 100 30 11/27/16 07:49 98.0 157/70 Intake and Output 11/26/16 11/26/16 11/27/16 15:00 23:00 07:00 Intake Total 120 ml 1800 ml 1600 ml Output Total 1000 ml 730 ml Balance 120 ml 800 ml 870 ml Exam HEENT exam; supple neck, no JVD. No lymphadenopathy. Midline trachea. No thyromegaly. Tracheostomy in place. Chest exam; clear to auscultation. S1-S2 audible, no murmurs. Regular rhythm. Abdomen exam; soft, G-tube in place. Bowel sounds audible. No organomegaly. Extremity exam; no peripheral edema. [employer] exam; patient remains minimally responsive. Results Result Diagram: 11/26/1652311/26/16523 Medications Medications Current Medications Sodium Chloride (1/2 NS) 1,000 ml @ 60 mls/hr [id number] IV Last administered on 11/27/16 10:52; Admin Dose 60 MLS/HR; Start 11/18/16 at 00:00 Acetaminophen (Tylenol Liquid) 650 mg Q6H PRN GTB MILD PAIN LEVEL 1-3 Last administered on 11/21/16 17:17; Admin Dose 650 MG; Start 11/18/16 at 00:30 Amlodipine Besylate (Norvasc) 5 mg DAILY GTB Last administered on 11/27/16 08: 24; Admin Dose 5 MG; Start 11/18/16 at 09:00 Ascorbic Acid (Vitamin C) 500 mg DAILY GTB Last administered on 11/27/16 08:24 ; Admin Dose 500 MG; Start 11/18/16 at 09:00 Benazepril HCl (Lotensin) 40 mg DAILY GTB Last administered on 11/27/16 08:24 ; Admin Dose 40 MG; Start 11/18/16 at 09:00 Carbidopa/Levodopa (Sinemet (25/ 100)) 0.5 tab BID GTB Last administered on 08:24; Admin Dose 0.5 TAB; Start 11/18/16 at 09:00 Clonidine (Catapres) 0.1 mg Q6 PRN GTB ELEVATED BLOOD PRESSURE Last administered on 11/23/16 12:39; Admin Dose 0.1 MG; Start 11/18/16 at 00:30 Eye Lubricant (Artificial Tears Oph) 2 drop QID BOTH EYES Last administered on 11/27/16 08:23; Admin Dose 2 DROP; Start 11/18/16 at 09:00 Epoetin Tree (Epogen (Oncology)) 10,000 units We@17 SC Last administered on 18:36; Admin Dose 10,000 UNITS; Start 11/23/16 at 17:00 Finasteride (Proscar) 5 mg DAILY GTB Last administered on 11/27/16 08:24; Admin Dose 5 MG; Start 11/18/16 at 09:00 Gabapentin (Neurontin Liquid) 300 mg BID GTB Last administered on 11/27/16 08: 23; Admin Dose 300 MG; Start 11/18/16 at 09:00 Acetaminophen/ Hydrocodone Bitart ([place] (5/325)) Give 5/325 mg Q6HRS PRN ... Q6 PRN GTB PAIN Last administered on 11/19/16 02:58; Admin Dose 1 TAB; Start 11/18/16 at 00:30 Magnesium Oxide (Mag-Ox 400) 400 mg QHS GTB Last administered on 11/26/16 20: 42; Admin Dose 400 MG; Start 11/18/16 at 21:00 Multivitamins (Multivitamin) 30 ml DAILY GTB Last administered on 11/27/16 08: 25; Admin Dose 30 ML; Start 11/18/16 at 09:00 Ondansetron HCl (Zofran Tab) 4 mg Q6H PRN GTB NAUSEA AND/OR VOMITING; Start at 00:30 Lansoprazole (Prevacid) 30 mg DAILY@06 GTB Last administered on 11/27/16 05:10 ; Admin Dose 30 MG; Start 11/18/16 at 06:00 Lorazepam (Ativan) 0.5 mg Q6H PRN GTB ANXIETY Last administered on 11/25/16 23 :09; Admin Dose 0.5 MG; Start 11/18/16 at 01:00 Docusate Sodium (Colace Liquid Cup) 100 mg BID GTB Last administered on 20:42; Admin Dose 100 MG; Start 11/20/16 at 21:00 Collagenase (Santyl) 1 applic DAILY TOP Last administered on 11/27/16 08:23; Admin Dose 1 APPLIC; Start 11/21/16 at 17:30 Collagenase (Santyl) 1 applic PRN PRN TOP WOUND CARE; Start 11/21/16 at 17:00 Promethazine HCl/ Codeine (Phenergan/ Codeine) 5 ml Q4H PRN PO COUGH Last administered on 11/27/16 08:24; Admin Dose 5 ML; Start 11/21/16 at 19:00 Ferrous Sulfate (Feosol Liquid Cup) 300 mg BID@18 GTB Last administered on 05:10; Admin Dose 300 MG; Start 11/22/16 at 06:00 Hydralazine HCl (Apresoline) 10 mg Q6H PRN IV SBP>170; Start 11/23/16 at 14:30 KARLI RILEY Nov 27, 2016 11:18
--- NOTE | 2016-11-27 11:47 | PN ---
Date/Time of Note Date/Time of Note DATE: 11/27/16 TIME: 11:46 Assessment/Plan VTE Prophylaxis VTE Prophylaxis Intervention: other Lines/Catheters IV Catheter Type (from Nrs): Peripheral IV Urinary Cath still in place: Yes Reason Cath still needed: skin wounds contaminated by urine Assessment/Plan Chief Complaint/Hosp Course - Sepsis with bacteremia. Dr. Shine is following in ID consultation. Continue antibiotics per ID. - Acute cystitis with MDR Proteus mirabilis. - Possible tracheobronchitis - Sinus bradycardia, Dr. Chadwick is following and cardiology consultation. - Hyperkalemia, resolved - Status post cervical laminectomy for cervical and upper thoracic stenosis - History of cystic mass - Ventilator dependent respiratory failure with tracheostomy,Dr. Rivera is following patient in pulmonology consultation. - Left lower extremity weakness, No acute process per imaging. Dr. Fulton is neurology consultation is appreciated. - Dysphagia with G-tube. - Parkinson's disease, continue Sinemet. - Hypertension, continue benazepril. - Sacral decubitus stage III, continue offloading, nutrition optimization. Problems: Subjective 24 Hr Interval Summary Free Text/Dictation Patient is sedated, trach in place Exam/Review of Systems Vital Signs Vitals Vital Signs Date Time Temp Pulse Resp B/P Pulse Ox O2 Delivery O2 Flow Rate FiO2 11/27/16 11:15 51 17 100 30 11/27/16 07:49 98.0 157/70 Intake and Output 11/26/16 11/26/16 11/27/16 15:00 23:00 07:00 Intake Total 120 ml 1800 ml 1600 ml Output Total 1000 ml 730 ml Balance 120 ml 800 ml 870 ml Exam Constitutional: well developed Head: atraumatic, normocephalic Neck: supple Respiratory: clear to auscultation Cardiovascular: regular rate and rhythm Gastrointestinal: non-tender, soft Extremities: normal pulses Results Result Diagram: 11/26/1652311/26/16523 Medications Medications Current Medications Sodium Chloride (1/2 NS) 1,000 ml @ 60 mls/hr [id number] IV Last administered on 11/27/16t 10:52; Admin Dose 60 MLS/HR; Start 11/18/16 at 00:00 Acetaminophen (Tylenol Liquid) 650 mg Q6H PRN GTB MILD PAIN LEVEL 1-3 Last administered on 11/21/16 17:17; Admin Dose 650 MG; Start 11/18/16 at 00:30 Amlodipine Besylate (Norvasc) 5 mg DAILY GTB Last administered on 11/27/16 08: 24; Admin Dose 5 MG; Start 11/18/16 at 09:00 Ascorbic Acid (Vitamin C) 500 mg DAILY GTB Last administered on 11/27/16 08:24 ; Admin Dose 500 MG; Start 11/18/16 at 09:00 Benazepril HCl (Lotensin) 40 mg DAILY GTB Last administered on 11/27/16 08:24 ; Admin Dose 40 MG; Start 11/18/16 at 09:00 Carbidopa/Levodopa (Sinemet (25/ )) 0.5 tab BID GTB Last administered on 08:24; Admin Dose 0.5 TAB; Start 11/18/16 at 09:00 Clonidine (Catapres) 0.1 mg Q6 PRN GTB ELEVATED BLOOD PRESSURE Last administered on 11/23/16 12:39; Admin Dose 0.1 MG; Start 11/18/16 at 00:30 Eye Lubricant (Artificial Tears Oph) 2 drop QID BOTH EYES Last administered on 11/27/16 08:23; Admin Dose 2 DROP; Start 11/18/16 at 09:00 Epoetin Tree (Epogen (Oncology)) 10,000 units We@17 SC Last administered on 18:36; Admin Dose 10,000 UNITS; Start 11/23/16 at 17:00 Finasteride (Proscar) 5 mg DAILY GTB Last administered on 11/27/16 08:24; Admin Dose 5 MG; Start 11/18/16 at 09:00 Gabapentin (Neurontin Liquid) 300 mg BID GTB Last administered on 11/27/16 08: 23; Admin Dose 300 MG; Start 11/18/16 at 09:00 Acetaminophen/ Hydrocodone Bitart ([place] (5/325)) Give 5/325 mg Q6HRS PRN ... Q6 PRN GTB PAIN Last administered on 11/19/16 02:58; Admin Dose 1 TAB; Start 11/18/16 at 00:30 Magnesium Oxide (Mag-Ox 400) 400 mg QHS GTB Last administered on 11/26/16 20: 42; Admin Dose 400 MG; Start 11/18/16 at 21:00 Multivitamins (Multivitamin) 30 ml DAILY GTB Last administered on 11/27/16 08: 25; Admin Dose 30 ML; Start 11/18/16 at 09:00 Ondansetron HCl (Zofran Tab) 4 mg Q6H PRN GTB NAUSEA AND/OR VOMITING; Start at 00:30 Lansoprazole (Prevacid) 30 mg DAILY@06 GTB Last administered on 11/27/16 05:10 ; Admin Dose 30 MG; Start 11/18/16 at 06:00 Lorazepam (Ativan) 0.5 mg Q6H PRN GTB ANXIETY Last administered on 11/25/16 23 :09; Admin Dose 0.5 MG; Start 11/18/16 at 01:00 Docusate Sodium (Colace Liquid Cup) 100 mg BID GTB Last administered on 20:42; Admin Dose 100 MG; Start 11/20/16 at 21:00 Collagenase (Santyl) 1 applic DAILY TOP Last administered on 11/27/16 08:23; Admin Dose 1 APPLIC; Start 11/21/16 at 17:30 Collagenase (Santyl) 1 applic PRN PRN TOP WOUND CARE; Start 11/21/16 at 17:00 Promethazine HCl/ Codeine (Phenergan/ Codeine) 5 ml Q4H PRN PO COUGH Last administered on 11/27/16 08:24; Admin Dose 5 ML; Start 11/21/16 at 19:00 Ferrous Sulfate (Feosol Liquid Cup) 300 mg BID@18 GTB Last administered on 05:10; Admin Dose 300 MG; Start 11/22/16 at 06:00 Hydralazine HCl (Apresoline) 10 mg Q6H PRN IV SBP>170; Start 11/23/16 at 14:30 JAYME WALL Nov 27, 2016 11:47
--- NOTE | 2016-11-27 12:33 | CONS ---
Date/Time of Note Date/Time of Note DATE: 11/27/16 TIME: 12:27 Assessment/Plan Assessment/Plan Chief Complaint/Hosp Course Assessment/Plan Chief Complaint/Hosp Course ID PROGRESS NOTE TOTAL ABX DAY # =>OFF ABX DAY #2 Ertapenem -> s/p 7 days s/p Vanco IV, Flagyl 24H INTERVAL SUMMARY * 81 years old male with chronic VDRF. No Acute Distress. * Chronic lethargy. Generalized Weakness. PHYSICAL EXAMINATION: GENERAL: VSS, NAD, no fevers HEENT: Unremarkable, NECK: (+)Trach present CHEST: Equal chest rise bilaterally, without dyspnea on observation HEART: Pulse RRR ABDOMEN: Soft EXTREMITIES: Warm SKIN: Warm, dry ID ASSESSMENT: 81 yo M w/Parkinson's dementia, quadriparesis s/p C-spine surgery admitted with : 1. Sepsis on admission =>RESOLVED 2. Multidrug-resistant Proteus mirabilis UTI=>RESOLVED 3. Bacteremia = Staph CoNS w/ repeat BCx (-) =>RESOLVED 4. Chronic respiratory failure -> Trach 5. Dysphagia with G-tube (-)MRSA Nares INVASIVES: * PIV ABX ALLERGIES: PCN CURRENT ABX: #OFF ABX DAY #2 S/P 7 DAYS => Ertapenem s/p Vanco IV, Flagyl ID RECOMMENDATIONS=> Remains stable off ABX day #2 1. Patient completed ABX treatment for UTI with Ertapenem -> Sepsis has resolved. 2. May DC back to SNF OFF ABX when cleared by Primary Care Physician. Problems: Consultation Date/Type/Reason Admit Date/Time Nov 17, 2016 at 20:56 Initial Consult Date 11/18/16 Type of Consultation: id Referring Provider: MARCO DOE Exam/Review of Systems Vital Signs Vitals Vital Signs Date Time Temp Pulse Resp B/P Pulse Ox O2 Delivery O2 Flow Rate FiO2 11/27/16 12:11 48 11/27/16 11:15 17 100 30 11/27/16 07:49 98.0 157/70 Intake and Output 11/26/16 11/26/16 11/27/16 15:00 23:00 07:00 Intake Total 120 ml 1800 ml 1600 ml Output Total 1000 ml 730 ml Balance 120 ml 800 ml 870 ml Results Result Diagram: 11/26/16 0524 11/26/16 0524 Medications Medications Current Medications Sodium Chloride (1/2 NS) 1,000 ml @ 60 mls/hr [id number] IV Last administered on 11/27/16 10:52; Admin Dose 60 MLS/HR; Start 11/18/16 at 00:00 Acetaminophen (Tylenol Liquid) 650 mg Q6H PRN GTB MILD PAIN LEVEL 1-3 Last administered on 11/21/16 17:17; Admin Dose 650 MG; Start 11/18/16 at 00:30 Amlodipine Besylate (Norvasc) 5 mg DAILY GTB Last administered on 11/27/16 08: 24; Admin Dose 5 MG; Start 11/18/16 at 09:00 Ascorbic Acid (Vitamin C) 500 mg DAILY GTB Last administered on 11/27/16 08:24 ; Admin Dose 500 MG; Start 11/18/16 at 09:00 Benazepril HCl (Lotensin) 40 mg DAILY GTB Last administered on 11/27/16 08:24 ; Admin Dose 40 MG; Start 11/18/16 at 09:00 Carbidopa/Levodopa (Sinemet (25/ 100)) 0.5 tab BID GTB Last administered on 08:24; Admin Dose 0.5 TAB; Start 11/18/16 at 09:00 Clonidine (Catapres) 0.1 mg Q6 PRN GTB ELEVATED BLOOD PRESSURE Last administered on 11/23/16 12:39; Admin Dose 0.1 MG; Start 11/18/16 at 00:30 Eye Lubricant (Artificial Tears Oph) 2 drop QID BOTH EYES Last administered on 11/27/16 12:11; Admin Dose 2 DROP; Start 11/18/16 at 09:00 Epoetin Tree (Epogen (Oncology)) 10,000 units We@17 SC Last administered on 18:36; Admin Dose 10,000 UNITS; Start 11/23/16 at 17:00 Finasteride (Proscar) 5 mg DAILY GTB Last administered on 11/27/16 08:24; Admin Dose 5 MG; Start 11/18/16 at 09:00 Gabapentin (Neurontin Liquid) 300 mg BID GTB Last administered on 11/27/16 08: 23; Admin Dose 300 MG; Start 11/18/16 at 09:00 Acetaminophen/ Hydrocodone Bitart ([place] (5/325)) Give 5/325 mg Q6HRS PRN ... Q6 PRN GTB PAIN Last administered on 11/19/16 02:58; Admin Dose 1 TAB; Start 11/18/16 at 00:30 Magnesium Oxide (Mag-Ox 400) 400 mg QHS GTB Last administered on 11/26/16 20: 42; Admin Dose 400 MG; Start 11/18/16 at 21:00 Multivitamins (Multivitamin) 30 ml DAILY GTB Last administered on 11/27/16 08: 25; Admin Dose 30 ML; Start 11/18/16 at 09:00 Ondansetron HCl (Zofran Tab) 4 mg Q6H PRN GTB NAUSEA AND/OR VOMITING; Start at 00:30 Lansoprazole (Prevacid) 30 mg DAILY@06 GTB Last administered on 11/27/16 05:10 ; Admin Dose 30 MG; Start 11/18/16 at 06:00 Lorazepam (Ativan) 0.5 mg Q6H PRN GTB ANXIETY Last administered on 11/25/16 23 :09; Admin Dose 0.5 MG; Start 11/18/16 at 01:00 Docusate Sodium (Colace Liquid Cup) 100 mg BID GTB Last administered on 20:42; Admin Dose 100 MG; Start 11/20/16 at 21:00 Collagenase (Santyl) 1 applic DAILY TOP Last administered on 11/27/16 08:23; Admin Dose 1 APPLIC; Start 11/21/16 at 17:30 Collagenase (Santyl) 1 applic PRN PRN TOP WOUND CARE; Start 11/21/16 at 17:00 Promethazine HCl/ Codeine (Phenergan/ Codeine) 5 ml Q4H PRN PO COUGH Last administered on 11/27/16 08:24; Admin Dose 5 ML; Start 11/21/16 at 19:00 Ferrous Sulfate (Feosol Liquid Cup) 300 mg BID@,18 GTB Last administered on 05:10; Admin Dose 300 MG; Start 11/22/16 at 06:00 Hydralazine HCl (Apresoline) 10 mg Q6H PRN IV SBP>170; Start 11/23/16 at 14:30 LISSETTE MILLAN NP Nov 27, 2016 12:32
--- NOTE | 2016-11-27 16:12 | CONS ---
Date/Time of Note Date/Time of Note DATE: 11/27/16 TIME: 16:10 Assessment/Plan Assessment/Plan Additional Assessment/Plan 1.Bradycardia-NL TSH/negative trop x3. Stable BP. No definite indication for PPM at this time - HR controlled - stable 2.UTI - on anti-Bx, con't Med rx - no fevers 3.Resp failure s/p trach - resp care in progress- on therapy 4.dysphagia s/p G tube - con't Rx 5.fever 6.parkinsons 7. HTN-reasonable Consultation Date/Type/Reason Admit Date/Time Nov 17, 2016 at 20:56 Initial Consult Date 11/18/16 Type of Consultation: id Referring Provider: MARCO DOE 24 HR Interval Summary Free Text/Dictation NO acute change - HR well rx - no indication for pacer now ROS: No fever, no chills, no nausea, no vomiting, no diarrhea/constipation No recent weight changes No chest pain, no PND, no orthopnea No dizziness, blurred vision No thirst, no heat or cold intolerance Exam/Review of Systems Vital Signs Vitals Vital Signs Date Time Temp Pulse Resp B/P Pulse Ox O2 Delivery O2 Flow Rate FiO2 11/27/16 15:26 53 20 100 30 11/27/16 12:56 98.0 135/71 Intake and Output 11/26/16 11/26/16 11/27/16 15:00 23:00 07:00 Intake Total 120 ml 1800 ml 1600 ml Output Total 1000 ml 730 ml Balance 120 ml 800 ml 870 ml Exam General: WN/WD/NAD, AOx 0-1 HEENT: Unicetric/atraumatic/EOMI (follows commands) NECK: trach Lymph: no lymphadenopathy HEART: regular with no S3, II/ systolic murmur at apex LUNGS: Coarse sounds ABD: soft, NT, ND, +BS : Intact Neuro: non focal SKIN: chronic changes EXT: trace edema Results Result Diagram: 11/26/1652311/26/16523 Medications Medications Current Medications Sodium Chloride (1/2 NS) 1,000 ml @ 60 mls/hr [id number] IV Last administered on 11/27/16t 10:52; Admin Dose 60 MLS/HR; Start 11/18/16 at 00:00 Acetaminophen (Tylenol Liquid) 650 mg Q6H PRN GTB MILD PAIN LEVEL 1-3 Last administered on 11/21/16 17:17; Admin Dose 650 MG; Start 11/18/16 at 00:30 Amlodipine Besylate (Norvasc) 5 mg DAILY GTB Last administered on 11/27/16 08: 24; Admin Dose 5 MG; Start 11/18/16 at 09:00 Ascorbic Acid (Vitamin C) 500 mg DAILY GTB Last administered on 11/27/16 08:24 ; Admin Dose 500 MG; Start 11/18/16 at 09:00 Benazepril HCl (Lotensin) 40 mg DAILY GTB Last administered on 11/27/16 08:24 ; Admin Dose 40 MG; Start 11/18/16 at 09:00 Carbidopa/Levodopa (Sinemet (/ )) 0.5 tab BID GTB Last administered on 08:24; Admin Dose 0.5 TAB; Start 11/18/16 at 09:00 Clonidine (Catapres) 0.1 mg Q6 PRN GTB ELEVATED BLOOD PRESSURE Last administered on 11/23/16 12:39; Admin Dose 0.1 MG; Start 11/18/16 at 00:30 Eye Lubricant (Artificial Tears Oph) 2 drop QID BOTH EYES Last administered on 11/27/16 12:11; Admin Dose 2 DROP; Start 11/18/16 at 09:00 Epoetin Tree (Epogen (Oncology)) 10,000 units We@17 SC Last administered on 18:36; Admin Dose 10,000 UNITS; Start 11/23/16 at 17:00 Finasteride (Proscar) 5 mg DAILY GTB Last administered on 11/27/16 08:24; Admin Dose 5 MG; Start 11/18/16 at 09:00 Gabapentin (Neurontin Liquid) 300 mg BID GTB Last administered on 11/27/16 08: 23; Admin Dose 300 MG; Start 11/18/16 at 09:00 Acetaminophen/ Hydrocodone Bitart ([place] (5/325)) Give 5/325 mg Q6HRS PRN ... Q6 PRN GTB PAIN Last administered on 11/19/16 02:58; Admin Dose 1 TAB; Start 11/18/16 at 00:30 Magnesium Oxide (Mag-Ox 400) 400 mg QHS GTB Last administered on 11/26/16 20: 42; Admin Dose 400 MG; Start 11/18/16 at 21:00 Multivitamins (Multivitamin) 30 ml DAILY GTB Last administered on 11/27/16 08: 25; Admin Dose 30 ML; Start 11/18/16 at 09:00 Ondansetron HCl (Zofran Tab) 4 mg Q6H PRN GTB NAUSEA AND/OR VOMITING; Start at 00:30 Lansoprazole (Prevacid) 30 mg DAILY@06 GTB Last administered on 11/27/16 05:10 ; Admin Dose 30 MG; Start 11/18/16 at 06:00 Lorazepam (Ativan) 0.5 mg Q6H PRN GTB ANXIETY Last administered on 11/25/16 23 :09; Admin Dose 0.5 MG; Start 11/18/16 at 01:00 Docusate Sodium (Colace Liquid Cup) 100 mg BID GTB Last administered on 20:42; Admin Dose 100 MG; Start 11/20/16 at 21:00 Collagenase (Santyl) 1 applic DAILY TOP Last administered on 11/27/16 08:23; Admin Dose 1 APPLIC; Start 11/21/16 at 17:30 Collagenase (Santyl) 1 applic PRN PRN TOP WOUND CARE; Start 11/21/16 at 17:00 Promethazine HCl/ Codeine (Phenergan/ Codeine) 5 ml Q4H PRN PO COUGH Last administered on 11/27/16 08:24; Admin Dose 5 ML; Start 11/21/16 at 19:00 Ferrous Sulfate (Feosol Liquid Cup) 300 mg BID@18 GTB Last administered on 05:10; Admin Dose 300 MG; Start 11/22/16 at 06:00 Hydralazine HCl (Apresoline) 10 mg Q6H PRN IV SBP>170; Start 11/23/16 at 14:30 RIVER FALCON MD Nov 27, 2016 16:11
[2016-11-27] MEDS: MAGNESIUM OXIDE 400 MG TAB GTB SCH (20:23)
[2016-11-28] VITALS (20 sets, daily range): BP systolic 135–152; BP diastolic 66–78; PULSE 40–61; RESP 16–23
[2016-11-28] MEDS: ALBUTEROL 18 GM INHALER INH SCH ×4 (01:45→19:19)
[2016-11-28] MEDS: IPRATROPIUM (HFA) 12.9 GM INHALER INH SCH ×4 (01:45→19:19)
[2016-11-28] MEDS: SOD CHLORIDE 0.45% 1,000 ML IV SCH ×2 (04:37→10:00)
[2016-11-28] MEDS: FERROUS SULFATE 60 MG/ML 5ML CUP GTB SCH ×2 (05:00→17:48)
[2016-11-28] MEDS: LANSOPRAZOLE 30 MG CAP GTB SCH (05:00)
[2016-11-28 06:24] LABS: BASOPHILS % 0.3 % (0.0-2.0); EOSINOPHILS # 0.3 10^3/ul (0.0-0.5); EOSINOPHILS % 4.2 % (0.0-7.0); HEMATOCRIT 27.9 % (42.0-52.0); HEMOGLOBIN 9.1 g/dl (14.0-18.0); LYMPHOCYTES # 2.3 10^3/ul (0.8-2.9); LYMPHOCYTES % 36.6 % (15.0-51.0); MEAN CORPUSCULAR HEMOGLOBIN 29.3 pg (29.0-33.0); MEAN CORPUSCULAR HGB CONC 32.6 g/dl (32.0-37.0); MEAN CORPUSCULAR VOLUME 89.7 fl (82.0-101.0); MEAN PLATELET VOLUME 11.1 fl (7.4-10.4); MONOCYTE # 0.9 10^3/ul (0.3-0.9); MONOCYTES % 14.9 % (0.0-11.0); NEUTROPHIL # 2.7 10^3/ul (1.6-7.5); NEUTROPHILS % 43.8 % (39.0-77.0); PLATELET COUNT 276 10^3/UL (140-415); RED BLOOD COUNT 3.11 10^6/ul (4.70-6.10); RED CELL DISTRIBUTION WIDTH 15.9 % (11.5-14.5); WHITE BLOOD COUNT 6.2 10^3/ul (4.8-10.8)
[2016-11-28 07:14] LABS: CALCIUM 7.9 mg/dl (8.4-10.2); CREATININE 0.59 mg/dl (0.61-1.24); POTASSIUM 3.8 mmol/L (3.5-5.1)
[2016-11-28] MEDS: COLLAGENASE 30 GM TUBE TOP SCH (08:51)
[2016-11-28] MEDS: ARTIFICIAL TEARS 15 ML OPH BOTH EYES SCH ×3 (08:51→17:48)
[2016-11-28] MEDS: AMLODIPINE 5 MG TAB GTB SCH (08:52)
[2016-11-28] MEDS: BENAZEPRIL 40 MG TAB GTB SCH (08:52)
[2016-11-28] MEDS: ASCORBIC ACID 500 MG TAB GTB SCH (08:53)
[2016-11-28] MEDS: CARBIDOPA/LEVODOPA (25/100) TAB GTB SCH (08:53)
[2016-11-28] MEDS: DOCUSATE SODIUM 10 MG/ML (10ML CUP) GTB SCH (08:54)
[2016-11-28] MEDS: FINASTERIDE 5 MG TAB GTB SCH (08:54)
[2016-11-28] MEDS: MULTIVITAMINS 30 ML CUP GTB SCH (08:54)
[2016-11-28] MEDS: GABAPENTIN (50 MG/ML PO SYG) GTB SCH (08:55)
--- NOTE | 2016-11-28 09:50 | CONS ---
DATE OF ADMISSION: 11/17/2016 DATE OF CONSULTATION: 11/21/2016 REASON FOR CONSULTATION: Bradycardia. REQUESTING PHYSICIAN: Renny Manriquez MD HISTORY OF PRESENT ILLNESS: Mr Box is an 81-year-old male with a history of thoracic spinal stenosis, quadriparesis, vent- dependent respiratory failure status post tracheostomy, dysphagia status post G-tube, Parkinson's, hypertension, anemia, who initially presented with fevers. On arrival he was found to have a temperature of 101. Patient has been diagnosed with a UTI and possible secondary sepsis. Patient at this time is being followed by the Pulmonary service, Neurology service, and the Infectious Disease service. Patient remains on broad-spectrum antibiotics. I have been asked to see this patient due to bradycardia. At this time patient remains on telemetry. His heart rate is in the 50s. PAST MEDICAL HISTORY: As above in HPI. MEDICATION CURRENTLY IN THE HOSPITAL: 1. Vancomycin. 2. Colace. 3. Flagyl. 4. Ertapenem. 5. Norvasc 5 mg daily. 6. Vitamin C. 7. Benazepril 40 mg daily. 8. Sinemet. 9. Finasteride. 10. Gabapentin. 11. Multi-Nery. 12. Albuterol. 13. Aspirin. 14. Prevacid. 15. Ativan p.r.n. 16. Clonidine p.r.n. 17. [place] p.r.n. 18. Zofran p.r.n. 19. IV fluid hydration at 60 mL/hour. ALLERGIES: PENICILLIN. SOCIAL HISTORY: No tobacco, ETOH, or illicit drug use. FAMILY HISTORY: Negative for sudden cardiac or early CD. REVIEW OF SYSTEMS: CONSTITUTIONAL: No fevers, chills. PULMONARY: Chronic respiratory failure status post tracheostomy. CARDIOVASCULAR: Bradycardia. GASTROINTESTINAL: Dysphagia status post G-tube. GENITOURINARY: No hematuria. MUSCULOSKELETAL: Degenerative joint disease. PSYCHIATRIC: The patient denies depression. NEUROLOGIC: Quadriparesis. PHYSICAL EXAMINATION: VITAL SIGNS: Temperature 97.6, blood pressure 126/78, pulse 55, respiratory rate 18, satting 98 percent. GENERAL: The patient is sleeping but arousable. NECK: Tracheostomy in place. CHEST: Upper airway which has rhonchi sounds. HEART: Regular rate and rhythm. Normal S1, S2. A 1/6 systolic murmur, nondisplaced PMI. ABDOMEN: Soft. Positive G-tube. EXTREMITIES: No pitting edema; 1+ pulses bilaterally, posterior tibial. LABORATORY: Most recent from today, white blood cell count 5.2, hemoglobin 11.3, platelet count 237. Sodium 138, potassium 4.4. Creatinine 0.6, BUN 29. UA positive. IMAGING STUDIES: Chest x-ray from the revealing mild left atelectasis. Minimal interstitial disease in the right lung, and a brain MRI from the had revealed no evidence of acute infarct, mild diffuse volume loss, chronic- looking on the right paramedian katina. IMPRESSION: 1. Bradycardia with stable blood pressure to the 50s at this time. 2. Urinary tract infection (UTI). 3. Chronic respiratory failure status post tracheostomy. 4. Dysphagia status post gastrostomy tube (G-tube). 5. Lower extremity weakness, quadriplegia. 6. Parkinson's. 7. Hypertension. 8. Fevers. RECOMMENDATIONS: 1. At this time would maintain the patient on telemetry monitoring to follow rhythm and rate control closely. 2. Would check a TSH hypothyroidism is not contributing to the patient's bouts of bradycardia. Otherwise continue the patient's current Norvasc and benazepril at this time. 3. Continue the patient's broad-spectrum antibiotic and follow up all culture data. 4. Continue the patient's Sinemet for treatment of Parkinson's. 5. Patient is status post 2-D echocardiogram, 08/25/2016, at that time revealing a preserved ejection fraction (EF) of greater than 65 percent. 6. Continue to check serial electrocardiograms (EKGs) to discern patient's current rhythm. Thank you for allowing me to take part in the care of this patient. I will continue to follow her closely with you with recommendations made patient's inpatient hospital course. Dictated By: Roberta Killian /brandon/sindhu /Document#: [id number] CC: Renny Manriquez MD;*[facility]*
--- NOTE | 2016-11-28 11:36 | CONS ---
Date/Time of Note Date/Time of Note DATE: 11/28/16 TIME: 11:34 Assessment/Plan Assessment/Plan Chief Complaint/Hosp Course IMP: 1.Bradycardia-NL TSH/negative trop x3. Stable BP. No definite indication for PPM at this time 2.UTI 3.Resp failure s/p trach 4.dysphagia s/p G tube 5.fever 6.parkinsons 7. HTN-reasonable Recc: -Tele -serial ecg's -Contiuue norvasc /benazepril with slight increase to improve BP control -Continue abx's and cx data -Continue sinemet -Follow volume status closely Problems: Consultation Date/Type/Reason Admit Date/Time Nov 17, 2016 at 20:56 Initial Consult Date 11/18/16 Type of Consultation: cardiology Reason for Consultation bradycardia Referring Provider: MARCO DOE Exam/Review of Systems Vital Signs Vitals Vital Signs Date Time Temp Pulse Resp B/P Pulse Ox O2 Delivery O2 Flow Rate FiO2 11/28/16 09:45 21 35 11/28/16 08:18 61 11/28/16 07:35 98.0 152/66 99 Intake and Output 11/27/16 11/27/16 11/28/16 15:00 23:00 07:00 Intake Total 180 ml 1830 ml 1820 ml Output Total 700 ml 800 ml Balance 180 ml 1130 ml 1020 ml Exam Review of Systems: CONSTITUTIONAL: No fevers, chills. PULMONARY: trached CARDIOVASCULAR: No chest pain/palpitations GASTROINTESTINAL: dysphagia GENITOURINARY: No hematuria/dysuria. MUSCULOSKELETAL: No myagias/arthalgias. PSYCHIATRIC: The patient denies depression. NEUROLOGIC: lethargic Constitutional: other (sleeping easily arousable) Head: normocephalic Eyes: nl conjunctiva ENMT: mucosa pink and moist Neck: other (trach in place) Respiratory: clear to auscultation Cardiovascular: regular rate and rhythm Gastrointestinal: other (GT), soft Musculoskeletal: muscle tone (normal) Extremities: edema (none) Neurological: other (NO focal deficits) Results Result Diagram: 11/28/16 0528 11/28/1628 Results 24 hrs Laboratory Tests Test 11/28/16 05:28 White Blood Count 6.2 Red Blood Count 3.11 L Hemoglobin 9.1 L Hematocrit 27.9 L Mean Corpuscular Volume 89.7 Mean Corpuscular Hemoglobin 29.3 Mean Corpuscular Hemoglobin Concent 32.6 Red Cell Distribution Width 15.9 H Platelet Count 276 Mean Platelet Volume 11.1 H Neutrophils % 43.8 Lymphocytes % 36.6 Monocytes % 14.9 H Eosinophils % 4.2 Basophils % 0.3 Nucleated Red Blood Cells % 0.0 Neutrophils # 2.7 Lymphocytes # 2.3 Monocytes # 0.9 Eosinophils # 0.3 Basophils # 0.0 Nucleated Red Blood Cells # 0.0 Sodium Level 140 Potassium Level 3.8 Chloride Level 103 Carbon Dioxide Level 26 Anion Gap 15 Blood Urea Nitrogen 23 H Creatinine 0.59 L Glucose Level 111 Calcium Level 7.9 L Medications Medications Current Medications Sodium Chloride (1/2 NS) 1,000 ml @ 60 mls/hr [id number] IV Last administered on 11/28/16 04:37; Admin Dose 60 MLS/HR; Start 11/18/16 at 00:00 Acetaminophen (Tylenol Liquid) 650 mg Q6H PRN GTB MILD PAIN LEVEL 1-3 Last administered on 11/21/16 17:17; Admin Dose 650 MG; Start 11/18/16 at 00:30 Amlodipine Besylate (Norvasc) 5 mg DAILY GTB Last administered on 11/28/16 08: 52; Admin Dose 5 MG; Start 11/18/16 at 09:00 Ascorbic Acid (Vitamin C) 500 mg DAILY GTB Last administered on 11/28/16 08:53 ; Admin Dose 500 MG; Start 11/18/16 at 09:00 Benazepril HCl (Lotensin) 40 mg DAILY GTB Last administered on 11/28/16 08:52 ; Admin Dose 40 MG; Start 11/18/16 at 09:00 Carbidopa/Levodopa (Sinemet (25/ 100)) 0.5 tab BID GTB Last administered on 08:53; Admin Dose 0.5 TAB; Start 11/18/16 at 09:00 Clonidine (Catapres) 0.1 mg Q6 PRN GTB ELEVATED BLOOD PRESSURE Last administered on 11/23/16 12:39; Admin Dose 0.1 MG; Start 11/18/16 at 00:30 Eye Lubricant (Artificial Tears Oph) 2 drop QID BOTH EYES Last administered on 11/28/16 08:51; Admin Dose 2 DROP; Start 11/18/16 at 09:00 Epoetin Tree (Epogen (Oncology)) 10,000 units We@17 SC Last administered on 18:36; Admin Dose 10,000 UNITS; Start 11/23/16 at 17:00 Finasteride (Proscar) 5 mg DAILY GTB Last administered on 11/28/16 08:54; Admin Dose 5 MG; Start 11/18/16 at 09:00 Gabapentin (Neurontin Liquid) 300 mg BID GTB Last administered on 11/28/16 08: 55; Admin Dose 300 MG; Start 11/18/16 at 09:00 Acetaminophen/ Hydrocodone Bitart ([place] (5/325)) Give 5/325 mg Q6HRS PRN ... Q6 PRN GTB PAIN Last administered on 11/19/16 02:58; Admin Dose 1 TAB; Start 11/18/16 at 00:30 Magnesium Oxide (Mag-Ox 400) 400 mg QHS GTB Last administered on 11/27/16 20: 23; Admin Dose 400 MG; Start 11/18/16 at 21:00 Multivitamins (Multivitamin) 30 ml DAILY GTB Last administered on 11/28/16 08: 54; Admin Dose 30 ML; Start 11/18/16 at 09:00 Ondansetron HCl (Zofran Tab) 4 mg Q6H PRN GTB NAUSEA AND/OR VOMITING; Start at 00:30 Lansoprazole (Prevacid) 30 mg DAILY@06 GTB Last administered on 11/28/16 05:00 ; Admin Dose 30 MG; Start 11/18/16 at 06:00 Lorazepam (Ativan) 0.5 mg Q6H PRN GTB ANXIETY Last administered on 11/25/16 23 :09; Admin Dose 0.5 MG; Start 11/18/16 at 01:00 Docusate Sodium (Colace Liquid Cup) 100 mg BID GTB Last administered on 08:54; Admin Dose 100 MG; Start 11/20/16 at 21:00 Collagenase (Santyl) 1 applic DAILY TOP Last administered on 11/28/16 08:51; Admin Dose 1 APPLIC; Start 11/21/16 at 17:30 Collagenase (Santyl) 1 applic PRN PRN TOP WOUND CARE; Start 11/21/16 at 17:00 Promethazine HCl/ Codeine (Phenergan/ Codeine) 5 ml Q4H PRN PO COUGH Last administered on 11/27/16 08:24; Admin Dose 5 ML; Start 11/21/16 at 19:00 Ferrous Sulfate (Feosol Liquid Cup) 300 mg BID@06,18 GTB Last administered on 05:00; Admin Dose 300 MG; Start 11/22/16 at 06:00 Hydralazine HCl (Apresoline) 10 mg Q6H PRN IV SBP>170; Start 11/23/16 at 14:30 REMBERTO PÉREZ Nov 28, 2016 11:36
--- NOTE | 2016-11-28 12:47 | CONS ---
Date/Time of Note Date/Time of Note DATE: 11/28/16 TIME: 12:46 Assessment/Plan Assessment/Plan Additional Assessment/Plan Ventilator setting; AC of 12, tidal volume 500, PEEP of 5, 30% FiO2. Assessment recommendations; 1. Patient admitted for UTI and sepsis with significant clinical improvement, off antibiotics now. 2. Chronic respiratory failure, 3. Advanced dementia with quadriplegia. 4. History of spinal surgery. Continue current treatment. Consider discharge. Consultation Date/Type/Reason Admit Date/Time Nov 17, 2016 at 20:56 Initial Consult Date 11/18/16 Type of Consultation: Pulmonary/critical care Referring Provider: MARCO DOE 24 HR Interval Summary Free Text/Dictation Patient condition remains stable. Remains semi-responsive. Has remained hemodynamically stable. General exam; elderly male, on ventilator via tracheostomy, currently in no distress. Exam/Review of Systems Vital Signs Vitals Vital Signs Date Time Temp Pulse Resp B/P Pulse Ox O2 Delivery O2 Flow Rate FiO2 11/28/16 12:28 98.0 78 20 138/70 99 11/28/16 11:54 35 Intake and Output 11/27/16 11/27/16 11/28/16 15:00 23:00 07:00 Intake Total 180 ml 1830 ml 1820 ml Output Total 700 ml 800 ml Balance 180 ml 1130 ml 1020 ml Exam HEENT exam; supple neck, no JVD. No lymphadenopathy. Midline trachea. No thyromegaly. Tracheostomy in place. Chest exam; clear to auscultation. S1-S2 audible, no murmurs. Regular rhythm. Abdomen exam; soft, G-tube in place. Bowel sounds audible. Extremity exam; no peripheral edema. 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 Results Result Diagram: 11/28/16 0528 11/28/16 0528 Results 24 hrs Laboratory Tests Test 11/28/16 05:28 White Blood Count 6.2 Red Blood Count 3.11 L Hemoglobin 9.1 L Hematocrit 27.9 L Mean Corpuscular Volume 89.7 Mean Corpuscular Hemoglobin 29.3 Mean Corpuscular Hemoglobin Concent 32.6 Red Cell Distribution Width 15.9 H Platelet Count 276 Mean Platelet Volume 11.1 H Neutrophils % 43.8 Lymphocytes % 36.6 Monocytes % 14.9 H Eosinophils % 4.2 Basophils % 0.3 Nucleated Red Blood Cells % 0.0 Neutrophils # 2.7 Lymphocytes # 2.3 Monocytes # 0.9 Eosinophils # 0.3 Basophils # 0.0 Nucleated Red Blood Cells # 0.0 Sodium Level 140 Potassium Level 3.8 Chloride Level 103 Carbon Dioxide Level 26 Anion Gap 15 Blood Urea Nitrogen 23 H Creatinine 0.59 L Glucose Level 111 Calcium Level 7.9 L Medications Medications Current Medications Sodium Chloride (1/2 NS) 1,000 ml @ 60 mls/hr [id number] IV Last administered on 11/28/16 04:37; Admin Dose 60 MLS/HR; Start 11/18/16 at 00:00 Acetaminophen (Tylenol Liquid) 650 mg Q6H PRN GTB MILD PAIN LEVEL 1-3 Last administered on 11/21/16 17:17; Admin Dose 650 MG; Start 11/18/16 at 00:30 Ascorbic Acid (Vitamin C) 500 mg DAILY GTB Last administered on 11/28/16 08:53 ; Admin Dose 500 MG; Start 11/18/16 at 09:00 Benazepril HCl (Lotensin) 40 mg DAILY GTB Last administered on 11/28/16 08:52 ; Admin Dose 40 MG; Start 11/18/16 at 09:00 Carbidopa/Levodopa (Sinemet (25/ 100)) 0.5 tab BID GTB Last administered on 08:53; Admin Dose 0.5 TAB; Start 11/18/16 at 09:00 Clonidine (Catapres) 0.1 mg Q6 PRN GTB ELEVATED BLOOD PRESSURE Last administered on 11/23/16 12:39; Admin Dose 0.1 MG; Start 11/18/16 at 00:30 Eye Lubricant (Artificial Tears Oph) 2 drop QID BOTH EYES Last administered on 11/28/16 08:51; Admin Dose 2 DROP; Start 11/18/16 at 09:00 Epoetin Tree (Epogen (Oncology)) 10,000 units We@17 SC Last administered on 18:36; Admin Dose 10,000 UNITS; Start 11/23/16 at 17:00 Finasteride (Proscar) 5 mg DAILY GTB Last administered on 11/28/16 08:54; Admin Dose 5 MG; Start 11/18/16 at 09:00 Gabapentin (Neurontin Liquid) 300 mg BID GTB Last administered on 11/28/16 08: 55; Admin Dose 300 MG; Start 11/18/16 at 09:00 Acetaminophen/ Hydrocodone Bitart ([place] (5/325)) Give 5/325 mg Q6HRS PRN ... Q6 PRN GTB PAIN Last administered on 11/19/16 02:58; Admin Dose 1 TAB; Start 11/18/16 at 00:30 Magnesium Oxide (Mag-Ox 400) 400 mg QHS GTB Last administered on 11/27/16 20: 23; Admin Dose 400 MG; Start 11/18/16 at 21:00 Multivitamins (Multivitamin) 30 ml DAILY GTB Last administered on 11/28/16 08: 54; Admin Dose 30 ML; Start 11/18/16 at 09:00 Ondansetron HCl (Zofran Tab) 4 mg Q6H PRN GTB NAUSEA AND/OR VOMITING; Start at 00:30 Lansoprazole (Prevacid) 30 mg DAILY@06 GTB Last administered on 11/28/16 05:00 ; Admin Dose 30 MG; Start 11/18/16 at 06:00 Lorazepam (Ativan) 0.5 mg Q6H PRN GTB ANXIETY Last administered on 11/25/16 23 :09; Admin Dose 0.5 MG; Start 11/18/16 at 01:00 Docusate Sodium (Colace Liquid Cup) 100 mg BID GTB Last administered on 08:54; Admin Dose 100 MG; Start 11/20/16 at 21:00 Collagenase (Santyl) 1 applic DAILY TOP Last administered on 11/28/16 08:51; Admin Dose 1 APPLIC; Start 11/21/16 at 17:30 Collagenase (Santyl) 1 applic PRN PRN TOP WOUND CARE; Start 11/21/16 at 17:00 Promethazine HCl/ Codeine (Phenergan/ Codeine) 5 ml Q4H PRN PO COUGH Last administered on 11/27/16 08:24; Admin Dose 5 ML; Start 11/21/16 at 19:00 Ferrous Sulfate (Feosol Liquid Cup) 300 mg BID@06,18 GTB Last administered on 05:00; Admin Dose 300 MG; Start 11/22/16 at 06:00 Hydralazine HCl (Apresoline) 10 mg Q6H PRN IV SBP>170; Start 11/23/16 at 14:30 Amlodipine Besylate (Norvasc) 5 mg BID GTB ; Start 11/28/16 at 21:00 KARLI RILEY Nov 28, 2016 12:47
--- NOTE | 2016-11-28 14:46 | PN ---
Date/Time of Note Date/Time of Note DATE: 11/28/16 TIME: 14:46 Assessment/Plan VTE Prophylaxis VTE Prophylaxis Intervention: other Lines/Catheters IV Catheter Type (from [facility]): Peripheral IV Urinary Cath still in place: Yes Reason Cath still needed: skin wounds contaminated by urine Assessment/Plan Chief Complaint/Hosp Course - Sepsis with bacteremia. Dr. Shine is following in ID consultation. Continue antibiotics per ID. - Acute cystitis with MDR Proteus mirabilis. - Possible tracheobronchitis - Sinus bradycardia, Dr. Chadwick is following and cardiology consultation. - Hyperkalemia, resolved - Status post cervical laminectomy for cervical and upper thoracic stenosis - History of cystic mass - Ventilator dependent respiratory failure with tracheostomy,Dr. Rivera is following patient in pulmonology consultation. - Left lower extremity weakness, No acute process per imaging. Dr. Fulton is neurology consultation is appreciated. - Dysphagia with G-tube. - Parkinson's disease, continue Sinemet. - Hypertension, continue benazepril. - Sacral decubitus stage III, continue offloading, nutrition optimization. Problems: Subjective 24 Hr Interval Summary Free Text/Dictation Patient sedated, trach in place Exam/Review of Systems Vital Signs Vitals Vital Signs Date Time Temp Pulse Resp B/P Pulse Ox O2 Delivery O2 Flow Rate FiO2 11/28/16 13:16 60 18 99 35 11/28/16 12:28 98.0 138/70 Intake and Output 11/27/16 11/27/16 11/28/16 15:00 23:00 07:00 Intake Total 180 ml 1830 ml 1820 ml Output Total 700 ml 800 ml Balance 180 ml 1130 ml 1020 ml Exam Constitutional: well developed Head: atraumatic, normocephalic Neck: supple Respiratory: diminished breath sounds Cardiovascular: regular rate and rhythm Gastrointestinal: non-tender, soft Results Result Diagram: 11/28/1628 11/28/16 0528 Results 24 hrs Laboratory Tests Test 11/28/16 05:28 White Blood Count 6.2 Red Blood Count 3.11 L Hemoglobin 9.1 L Hematocrit 27.9 L Mean Corpuscular Volume 89.7 Mean Corpuscular Hemoglobin 29.3 Mean Corpuscular Hemoglobin Concent 32.6 Red Cell Distribution Width 15.9 H Platelet Count 276 Mean Platelet Volume 11.1 H Neutrophils % 43.8 Lymphocytes % 36.6 Monocytes % 14.9 H Eosinophils % 4.2 Basophils % 0.3 Nucleated Red Blood Cells % 0.0 Neutrophils # 2.7 Lymphocytes # 2.3 Monocytes # 0.9 Eosinophils # 0.3 Basophils # 0.0 Nucleated Red Blood Cells # 0.0 Sodium Level 140 Potassium Level 3.8 Chloride Level 103 Carbon Dioxide Level 26 Anion Gap 15 Blood Urea Nitrogen 23 H Creatinine 0.59 L Glucose Level 111 Calcium Level 7.9 L Medications Medications Current Medications Sodium Chloride (1/2 NS) 1,000 ml @ 60 mls/hr [id number] IV Last administered on 11/28/16 04:37; Admin Dose 60 MLS/HR; Start 11/18/16 at 00:00 Acetaminophen (Tylenol Liquid) 650 mg Q6H PRN GTB MILD PAIN LEVEL 1-3 Last administered on 11/21/16 17:17; Admin Dose 650 MG; Start 11/18/16 at 00:30 Ascorbic Acid (Vitamin C) 500 mg DAILY GTB Last administered on 11/28/16 08:53 ; Admin Dose 500 MG; Start 11/18/16 at 09:00 Benazepril HCl (Lotensin) 40 mg DAILY GTB Last administered on 11/28/16 08:52 ; Admin Dose 40 MG; Start 11/18/16 at 09:00 Carbidopa/Levodopa (Sinemet (25/ 100)) 0.5 tab BID GTB Last administered on 08:53; Admin Dose 0.5 TAB; Start 11/18/16 at 09:00 Clonidine (Catapres) 0.1 mg Q6 PRN GTB ELEVATED BLOOD PRESSURE Last administered on 11/23/16 12:39; Admin Dose 0.1 MG; Start 11/18/16 at 00:30 Eye Lubricant (Artificial Tears Oph) 2 drop QID BOTH EYES Last administered on 11/28/16 13:02; Admin Dose 2 DROP; Start 11/18/16 at 09:00 Epoetin Tree (Epogen (Oncology)) 10,000 units We@17 SC Last administered on 18:36; Admin Dose 10,000 UNITS; Start 11/23/16 at 17:00 Finasteride (Proscar) 5 mg DAILY GTB Last administered on 11/28/16 08:54; Admin Dose 5 MG; Start 11/18/16 at 09:00 Gabapentin (Neurontin Liquid) 300 mg BID GTB Last administered on 11/28/16 08: 55; Admin Dose 300 MG; Start 11/18/16 at 09:00 Acetaminophen/ Hydrocodone Bitart ([place] (5/325)) Give 5/325 mg Q6HRS PRN ... Q6 PRN GTB PAIN Last administered on 11/19/16 02:58; Admin Dose 1 TAB; Start 11/18/16 at 00:30 Magnesium Oxide (Mag-Ox 400) 400 mg QHS GTB Last administered on 11/27/16 20: 23; Admin Dose 400 MG; Start 11/18/16 at 21:00 Multivitamins (Multivitamin) 30 ml DAILY GTB Last administered on 11/28/16 08: 54; Admin Dose 30 ML; Start 11/18/16 at 09:00 Ondansetron HCl (Zofran Tab) 4 mg Q6H PRN GTB NAUSEA AND/OR VOMITING; Start at 00:30 Lansoprazole (Prevacid) 30 mg DAILY@06 GTB Last administered on 11/28/16 05:00 ; Admin Dose 30 MG; Start 11/18/16 at 06:00 Lorazepam (Ativan) 0.5 mg Q6H PRN GTB ANXIETY Last administered on 11/25/16 23 :09; Admin Dose 0.5 MG; Start 11/18/16 at 01:00 Docusate Sodium (Colace Liquid Cup) 100 mg BID GTB Last administered on 08:54; Admin Dose 100 MG; Start 11/20/16 at 21:00 Collagenase (Santyl) 1 applic DAILY TOP Last administered on 11/28/16 08:51; Admin Dose 1 APPLIC; Start 11/21/16 at 17:30 Collagenase (Santyl) 1 applic PRN PRN TOP WOUND CARE; Start 11/21/16 at 17:00 Promethazine HCl/ Codeine (Phenergan/ Codeine) 5 ml Q4H PRN PO COUGH Last administered on 11/27/16 08:24; Admin Dose 5 ML; Start 11/21/16 at 19:00 Ferrous Sulfate (Feosol Liquid Cup) 300 mg BID@06,18 GTB Last administered on t 05:00; Admin Dose 300 MG; Start 11/22/16 at 06:00 Hydralazine HCl (Apresoline) 10 mg Q6H PRN IV SBP>170; Start 11/23/16 at 14:30 Amlodipine Besylate (Norvasc) 5 mg BID GTB ; Start 11/28/16 at 21:00 JAYME WALL Nov 28, 2016 14:46
--- NOTE | 2016-11-28 14:50 | CONS ---
Date/Time of Note Date/Time of Note DATE: 11/28/16 TIME: 14:47 Assessment/Plan Assessment/Plan Chief Complaint/Hosp Course ID PROGRESS NOTE TOTAL ABX DAY =>OFF ABX DAY #4 Ertapenem -> s/p 7 days s/p Vanco IV, Flagyl 24H INTERVAL SUMMARY * DC planning in process -> Patient admitted with UTI and sepsis 2/2 UTI which has resolved -- patient stable OFF ABX * No recurrent fevers, WBC remains normalized off ABX, 81 yo chronic VDRF, calm , looks comfortable * Chronic lethargy, generalized weakness PHYSICAL EXAMINATION: GENERAL: VSS, NAD, no fevers HEENT: Unremarkable, NECK: (+)Trach present CHEST: Equal chest rise bilaterally, without dyspnea on observation HEART: Pulse RRR ABDOMEN: Soft EXTREMITIES: Warm SKIN: Warm, dry ID ASSESSMENT: 81 yo M w/Parkinson's dementia, quadriparesis s/p C-spine surgery admitted with : 1. Sepsis on admission =>RESOLVED 2. Multidrug-resistant Proteus mirabilis UTI=>RESOLVED 3. Bacteremia = Staph CoNS w/ repeat BCx (-) =>RESOLVED 4. Chronic respiratory failure -> Trach 5. Dysphagia with G-tube (-)MRSA Nares INVASIVES: * PIV ABX ALLERGIES: PCN CURRENT ABX: => OFF ABX DAY #4 S/P 7 DAYS => Ertapenem s/p Vanco IV, Flagyl ID RECOMMENDATIONS=> Remains stable off ABX day #4 1. Patient hax completed ABX treatment for UTI with Ertapenem -> sepsis has resolved 2. 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 Problems: Consultation Date/Type/Reason Admit Date/Time Nov 17, 2016 at 20:56 Initial Consult Date 11/18/16 Type of Consultation: ID Referring Provider: MARCO DOE Exam/Review of Systems Vital Signs Vitals Vital Signs Date Time Temp Pulse Resp B/P Pulse Ox O2 Delivery O2 Flow Rate FiO2 11/28/16 13:16 60 18 99 35 11/28/16 12:28 98.0 138/70 Intake and Output 11/27/16 11/27/16 11/28/16 15:00 23:00 07:00 Intake Total 180 ml 1830 ml 1820 ml Output Total 700 ml 800 ml Balance 180 ml 1130 ml 1020 ml Results Result Diagram: 11/28/1628 11/28/1628 Results 24 hrs Laboratory Tests Test 11/28/16 05:28 White Blood Count 6.2 Red Blood Count 3.11 L Hemoglobin 9.1 L Hematocrit 27.9 L Mean Corpuscular Volume 89.7 Mean Corpuscular Hemoglobin 29.3 Mean Corpuscular Hemoglobin Concent 32.6 Red Cell Distribution Width 15.9 H Platelet Count 276 Mean Platelet Volume 11.1 H Neutrophils % 43.8 Lymphocytes % 36.6 Monocytes % 14.9 H Eosinophils % 4.2 Basophils % 0.3 Nucleated Red Blood Cells % 0.0 Neutrophils # 2.7 Lymphocytes # 2.3 Monocytes # 0.9 Eosinophils # 0.3 Basophils # 0.0 Nucleated Red Blood Cells # 0.0 Sodium Level 140 Potassium Level 3.8 Chloride Level 103 Carbon Dioxide Level 26 Anion Gap 15 Blood Urea Nitrogen 23 H Creatinine 0.59 L Glucose Level 111 Calcium Level 7.9 L Medications Medications Current Medications Sodium Chloride (1/2 NS) 1,000 ml @ 60 mls/hr [id number] IV Last administered on 11/28/16 04:37; Admin Dose 60 MLS/HR; Start 11/18/16 at 00:00 Acetaminophen (Tylenol Liquid) 650 mg Q6H PRN GTB MILD PAIN LEVEL 1-3 Last administered on 11/21/16 17:17; Admin Dose 650 MG; Start 11/18/16 at 00:30 Ascorbic Acid (Vitamin C) 500 mg DAILY GTB Last administered on 11/28/16 08:53 ; Admin Dose 500 MG; Start 11/18/16 at 09:00 Benazepril HCl (Lotensin) 40 mg DAILY GTB Last administered on 11/28/16 08:52 ; Admin Dose 40 MG; Start 11/18/16 at 09:00 Carbidopa/Levodopa (Sinemet (25/ 100)) 0.5 tab BID GTB Last administered on 08:53; Admin Dose 0.5 TAB; Start 11/18/16 at 09:00 Clonidine (Catapres) 0.1 mg Q6 PRN GTB ELEVATED BLOOD PRESSURE Last administered on 11/23/16 12:39; Admin Dose 0.1 MG; Start 11/18/16 at 00:30 Eye Lubricant (Artificial Tears Oph) 2 drop QID BOTH EYES Last administered on 11/28/16 13:02; Admin Dose 2 DROP; Start 11/18/16 at 09:00 Epoetin Tree (Epogen (Oncology)) 10,000 units We@17 SC Last administered on 18:36; Admin Dose 10,000 UNITS; Start 11/23/16 at 17:00 Finasteride (Proscar) 5 mg DAILY GTB Last administered on 11/28/16 08:54; Admin Dose 5 MG; Start 11/18/16 at 09:00 Gabapentin (Neurontin Liquid) 300 mg BID GTB Last administered on 11/28/16 08: 55; Admin Dose 300 MG; Start 11/18/16 at 09:00 Acetaminophen/ Hydrocodone Bitart ([place] (5/325)) Give 5/325 mg Q6HRS PRN ... Q6 PRN GTB PAIN Last administered on 11/19/16 02:58; Admin Dose 1 TAB; Start 11/18/16 at 00:30 Magnesium Oxide (Mag-Ox 400) 400 mg QHS GTB Last administered on 11/27/16 20: 23; Admin Dose 400 MG; Start 11/18/16 at 21:00 Multivitamins (Multivitamin) 30 ml DAILY GTB Last administered on 11/28/16 08: 54; Admin Dose 30 ML; Start 11/18/16 at 09:00 Ondansetron HCl (Zofran Tab) 4 mg Q6H PRN GTB NAUSEA AND/OR VOMITING; Start at 00:30 Lansoprazole (Prevacid) 30 mg DAILY@06 GTB Last administered on 11/28/16 05:00 ; Admin Dose 30 MG; Start 11/18/16 at 06:00 Lorazepam (Ativan) 0.5 mg Q6H PRN GTB ANXIETY Last administered on 11/25/16 23 :09; Admin Dose 0.5 MG; Start 11/18/16 at 01:00 Docusate Sodium (Colace Liquid Cup) 100 mg BID GTB Last administered on 08:54; Admin Dose 100 MG; Start 11/20/16 at 21:00 Collagenase (Santyl) 1 applic DAILY TOP Last administered on 11/28/16 08:51; Admin Dose 1 APPLIC; Start 11/21/16 at 17:30 Collagenase (Santyl) 1 applic PRN PRN TOP WOUND CARE; Start 11/21/16 at 17:00 Promethazine HCl/ Codeine (Phenergan/ Codeine) 5 ml Q4H PRN PO COUGH Last administered on 11/27/16 08:24; Admin Dose 5 ML; Start 11/21/16 at 19:00 Ferrous Sulfate (Feosol Liquid Cup) 300 mg BID@,18 GTB Last administered on 05:00; Admin Dose 300 MG; Start 11/22/16 at 06:00 Hydralazine HCl (Apresoline) 10 mg Q6H PRN IV SBP>170; Start 11/23/16 at 14:30 Amlodipine Besylate (Norvasc) 5 mg BID GTB ; Start 11/28/16 at 21:00 MEAGAN LOPES NP Nov 28, 2016 14:50
[2016-11-28] MEDS ORDERED: AMLODIPINE 5 MG TAB GTB SCH (21:00)
== END 2016-11-28 19:35 | DRG 870 ==
LOC: E/R 19:20 → TEL 20:56
PROVIDERS: ADMIT Internal Medicine; ATTEND Internal Medicine
PROC: 5A1955Z Respiratory Ventilation, Greater than 96 Consecutive Hours (ICD-10-PCS; principal; 2016-11-17)
PROC: 0B21XFZ Change Tracheostomy Device in Trachea, External Approach (ICD-10-PCS; 2016-11-17)
DX: A41.1 Sepsis due to other specified staphylococcus (principal); G82.50 Quadriplegia, unspecified; J96.10 Chronic respiratory failure, unspecified whether with hypoxia or hypercapnia; L89.153 Pressure ulcer of sacral region, stage 3; Z93.0 Tracheostomy status; N30.00 Acute cystitis without hematuria; N39.0 Urinary tract infection, site not specified; G20 Parkinson's disease; R13.10 Dysphagia, unspecified; J40 Bronchitis, not specified as acute or chronic; I10 Essential (primary) hypertension; Z93.1 Gastrostomy status; F02.80 Dementia in other diseases classified elsewhere, unspecified severity, without behavioral disturbance, psychotic disturbance, mood disturbance, and anxiety; E87.5 Hyperkalemia; B96.4 Proteus (mirabilis) (morganii) as the cause of diseases classified elsewhere; Z16.24 Resistance to multiple antibiotics; Z96.698 Presence of other orthopedic joint implants
CPT/HCPCS: 36415; 36600; 70551; 71010; 72141; 72146; 72148; 80048; 80053; 81001; 82803; 82962; 83605; 84443; 84484; 85025; 85610; 85730; 87040; 87075; 87081; 87086; 93005; 94002; 94003; 94640; 94664; 96374; 96375; 97110; 97163; 97530; J0885; J0610; J0696; J1335; J3370; J7030; J7050

== ENCOUNTER 2017-10-03 21:34 | Inpatient (IN) | END 2017-10-13 20:47 | DRG 870 ==